=== PATIENT | male | born 1960 | race American Indian/Alaskan Native ===

== ENCOUNTER 2017-03-17 18:47 | Emergency (ER) | payer MEDICAID ==
--- NOTE | 2017-03-17 19:59 | EDM.PDOC ---
ED HPI GENERAL MEDICAL PROBLEM - General Chief Complaint: General Stated Complaint: POSSIBLE BLOOD CLOT IN ARM Time Seen by Provider: 03/17/17 19:11 Source of Information: Reports: Patient History Limitations: Reports: No Limitations - History of Present Illness INITIAL COMMENTS - FREE TEXT/NARRATIVE: 56 y.o.w.m s/p kidney transplant 15 years ago. He was seen last saturday in [facility]. An US of his left forarm was performed which was neg for DVT. Now, the patient was repairing his car and "bumbed" his left for arm. He noticed some pain and redness and thinks he has now a DVT in his left forearm. Pt denies any other acute medical issues. No F/C, No N/V. BP 175/85 pulse 85 Temp 36.4 Onset: Today Onset Date: 03/13/17 Onset Time: 06:00 Duration: Intermittent Location: Reports: Upper Extremity, Left Quality: Reports: Burning Severity: Mild Improves with: Reports: Rest Worsens with: Reports: Movement Left Lower Arm Pain Score (Numeric/FACES): 8 - Related Data Allergies Allergy/AdvReac Type Severity Reaction Status Date / Time No Known Allergies Allergy Verified 03/17/17 19:08 Home Meds: Home Meds Cholecalciferol (Vitamin D3) [Vitamin D3] 2,000 unit PO DAILY 06/07/15 [History] Fluconazole [Diflucan] 800 mg PO DAILY 06/07/15 [History] Tacrolimus 1 mg PO Q12H 06/07/15 [History] predniSONE [Prednisone] 10 mg PO DAILY 06/07/15 [History] Acetaminophen [Tylenol] 650 mg PO Q6H PRN 08/22/15 [History] Calcitriol [Rocaltrol] 0.75 mcg TID 08/22/15 [History] Sodium Chloride 1 gm PO BID 08/22/15 [History] Past Medical History HEENT History: Reports: Impaired Vision Other HEENT History: Pt wears glasses Cardiovascular History: Reports: High Cholesterol, Hypertension Other Cardiovascular History: Pt reports being taken off HTN medication while his is taking antibiotics for recent hospitalization for viral menigitis. Respiratory History: Reports: None Gastrointestinal History: Reports: Cholelithiasis Genitourinary History: Reports: Dialysis, Renal Disease, UTI, Recurrent, Other ( See Below) Other Genitourinary History: kidney transplant 17 years ago Musculoskeletal History: Reports: None Psychiatric History: Reports: Panic Attack Endocrine/Metabolic History: Reports: Diabetes, Type II, Hypoparathyroidism Hematologic History: Reports: Anemia, Blood Transfusion(s) Immunologic History: Reports: Solid Organ Transplant Other Immunologic History: kidney transplant 2002 - Infectious Disease History Infectious Disease History: Reports: Chicken Pox - Past Surgical History Head Surgeries/Procedures: Reports: None GI Surgical History: Reports: Appendectomy, Cholecystectomy Male Surgical History: Reports: Other (See Below) Other Male Surgeries/Procedures: kidney transplant 17 years ago Musculoskeletal Surgical History: Reports: Hip Replacement Social & Family History - Family History Family Medical History: Noncontributory Cardiac: Reports: Other (See Below) Other Cardiac Family History: Brother had bypass OBGYN: Reports: Endocrine/Metabolic: Reports: Diabetes, type II - Tobacco Use Smoking Status *Q: Never Smoker Years of Tobacco use: 15 Packs/Tins Daily: 1 Used Tobacco, but Quit: Yes Month Tobacco Last Used: 1992 Second Hand Smoke Exposure: No - Caffeine Use Caffeine Use: Reports: Coffee - Alcohol Use Days Per Week of Alcohol Use: 0 - Recreational Drug Use Recreational Drug Use: No ED ROS GENERAL - Review of Systems Review Of Systems: See Below Constitutional: Reports: No Symptoms HEENT: Reports: No Symptoms Respiratory: Reports: No Symptoms Cardiovascular: Reports: No Symptoms Endocrine: Reports: No Symptoms GI/Abdominal: Reports: No Symptoms : Reports: No Symptoms Musculoskeletal: Reports: No Symptoms Skin: Reports: No Symptoms Neurological: Reports: No Symptoms Psychiatric: Reports: No Symptoms Hematologic/Lymphatic: Reports: No Symptoms Immunologic: Reports: No Symptoms ED EXAM, GENERAL - Physical Exam Exam: See Below Exam Limited By: No Limitations General Appearance: Alert, WD/WN, Mild Distress Eye Exam: Bilateral Eye: Normal Inspection Ears: Normal External Exam Ear Exam: Bilateral Ear: Auricle Normal Nose: Normal Inspection, Normal Mucosa Throat/Mouth: Normal Inspection Head: Atraumatic, Normocephalic Neck: Normal Inspection, Supple, Non-Tender Respiratory/Chest: No Respiratory Distress, Lungs Clear Cardiovascular: Normal Peripheral Pulses, Regular Rate, Rhythm Peripheral Pulses: 1+: Brachial (L), Brachial (R) GI/Abdominal: Normal Bowel Sounds, Soft, Non-Tender (Male) Exam: Deferred Rectal (Males) Exam: Deferred Back Exam: Normal Inspection Extremities: Other (left forearm discomfort, left forearm has a nonfuctioning AV shunt, not used for 15 years) Neurological: Alert, Oriented, CN II-XII Intact, Normal Cognition, Normal Gait, No Motor/Sensory Deficits Psychiatric: Normal Affect, Normal Mood Skin Exam: Warm, Dry, Rash (left forearm) Course - Vital Signs Text/Narrative:: 56 y.o.w.m s/p kidney transplant 15 years ago. He was seen last saturday in [facility]. An US of his left forarm was performed which was neg for DVT. Now, the patient was repairing his car and "bumbed" his left for arm. He noticed some pain and redness and thinks he has now a DVT in his left forearm. Pt denies any other acute medical issues. No F/C, No N/V. BP 175/85 pulse 85 Temp 36.4 PE: Discomfort, swelling left forearm. S/P Kidney transplant left forarm av shunt with swelling and tenderness Imaging: Sonogram of an AV shunt is not done in this facility Labs: Pt refused all kind of lab works Impressin: Left forearm pain, redness and swelling Tx: Pt refused blood work and painmeds Plan: D/C to home Last Recorded V/S: Last Vital Signs Temp 36.4 C 03/17/17 19:11 Pulse 87 03/17/17 20:12 Resp 18 03/17/17 19:11 BP 160/87 H 03/17/17 20:12 Pulse Ox 100 03/17/17 19:11 - Orders/Labs/Meds Orders: Active Orders 24 hr Category Date Time Status VL Duplex Upr Ext Art Ltd Lt [US] Stat Exams 03/17/17 19:43 Taken BASIC METABOLIC PANEL,BMP [CHEM] Stat Lab 03/17/17 19:47 Ordered CBC WITH AUTO DIFF [HEME] Stat Lab 03/17/17 19:47 Ordered CULTURE BLOOD [BC] Urgent Lab 03/17/17 19:48 Ordered CULTURE BLOOD [BC] Urgent Lab 03/17/17 19:48 Ordered LACTIC ACID [CHEM] Stat Lab 03/17/17 19:47 Ordered Blood Culture x2 Reflex Set [OM.PC] Urgent Oth 03/17/17 19:47 Ordered Departure - Departure Time of Disposition: 19:59 Disposition: Home, Self-Care 01 Condition: Good Clinical Impression: Left forearm pain - Discharge Information Referrals: Du Andersen MD [Primary Care Provider] - Forms: ED Department Discharge Additional Instructions: You refused blood work and wanted to see your doctor tomorrow. Doppler sonography of a shunt can not be done today. Please f/u with your doctor, come back to the ED if your symptoms get worse acutely - My Orders Last 24 Hours: My Active Orders 03/17/17 19:43 VL Duplex Upr Ext Art Ltd Lt [US] Stat 03/17/17 19:47 BASIC METABOLIC PANEL,BMP [CHEM] Stat CBC WITH AUTO DIFF [HEME] Stat LACTIC ACID [CHEM] Stat Blood Culture x2 Reflex Set [OM.PC] Urgent 03/17/17 19:48 CULTURE BLOOD [BC] Urgent CULTURE BLOOD [BC] Urgent - Assessment/Plan Last 24 Hours: My Active Orders 03/17/17 19:43 VL Duplex Upr Ext Art Ltd Lt [US] Stat 03/17/17 19:47 BASIC METABOLIC PANEL,BMP [CHEM] Stat CBC WITH AUTO DIFF [HEME] Stat LACTIC ACID [CHEM] Stat Blood Culture x2 Reflex Set [OM.PC] Urgent 03/17/17 19:48 CULTURE BLOOD [BC] Urgent CULTURE BLOOD [BC] Urgent
[2017-03-17 20:13] VITALS: BP 160/87
== END 2017-03-17 20:06 | disposition home or self-care (01) ==
LOC: FB.ED 18:47
DX: M79.632 Pain in left forearm (principal); R22.32 Localized swelling, mass and lump, left upper limb; Z79.899 Other long term (current) drug therapy; I10 Essential (primary) hypertension; E11.9 Type 2 diabetes mellitus without complications
CPT/HCPCS: 93931-LT; 99283

== ENCOUNTER 2017-07-23 16:43 | Inpatient (IN) | payer MEDICAID ==
--- NOTE | 2017-07-23 16:57 | EDM.PDOC ---
ED HPI GENERAL MEDICAL PROBLEM - General Chief Complaint: Gastrointestinal Problem Stated Complaint: diarrhea Time Seen by Provider: 07/23/17 16:50 Source of Information: Reports: Patient History Limitations: Reports: No Limitations - History of Present Illness INITIAL COMMENTS - FREE TEXT/NARRATIVE: Mr Barrera comes into [facility] ED at request of PCP for assessment of diarrhea over the past 7 days. There is small loose watery stools that are intermittent, and occur usually following a meal. There has been no BRB or mucous detected, limited midline midabdominal pains with crampy features, nonradiating. There has been no exposure, fever, chills, or sweats. He is on immunosuppression for a L renal transplant in 2001, and has chronic anemia. - Related Data Allergies Allergy/AdvReac Type Severity Reaction Status Date / Time No Known Allergies Allergy Verified 07/23/17 16:51 Home Meds: Home Meds Cholecalciferol (Vitamin D3) [Vitamin D3] 2,000 unit PO DAILY 06/07/15 [History] Fluconazole [Diflucan] 800 mg PO DAILY 06/07/15 [History] Tacrolimus 1 mg PO Q12H 06/07/15 [History] Acetaminophen [Tylenol] 650 mg PO Q6H PRN 08/22/15 [History] Calcitriol [Rocaltrol] 0.75 mcg PO TID 08/22/15 [History] Sodium Chloride 1 gm PO BID 08/22/15 [History] Omeprazole [Omeprazole] 20 mg PO DAILY 07/23/17 [History] Warfarin Sodium [Warfarin Sodium] 3 mg PO ASDIRECTED 07/23/17 [History] Past Medical History HEENT History: Reports: Impaired Vision Other HEENT History: Pt wears glasses Cardiovascular History: Reports: High Cholesterol, Hypertension Other Cardiovascular History: Pt reports being taken off HTN medication while his is taking antibiotics for recent hospitalization for viral menigitis. Respiratory History: Reports: None Gastrointestinal History: Reports: Cholelithiasis Genitourinary History: Reports: Dialysis, Renal Disease, UTI, Recurrent, Other ( See Below) Other Genitourinary History: kidney transplant 17 years ago pts fistula was removed early may 2017 from left arm Musculoskeletal History: Reports: None Psychiatric History: Reports: Panic Attack Endocrine/Metabolic History: Reports: Diabetes, Type II, Hypoparathyroidism Hematologic History: Reports: Anemia, Blood Transfusion(s) Immunologic History: Reports: Solid Organ Transplant Other Immunologic History: kidney transplant 2002 - Infectious Disease History Infectious Disease History: Reports: Chicken Pox - Past Surgical History Head Surgeries/Procedures: Reports: None GI Surgical History: Reports: Appendectomy, Cholecystectomy Male Surgical History: Reports: Other (See Below) Other Male Surgeries/Procedures: kidney transplant 17 years ago Endocrine Surgical History: Reports: None Musculoskeletal Surgical History: Reports: Hip Replacement Social & Family History - Family History Family Medical History: Noncontributory Cardiac: Reports: Other (See Below) Other Cardiac Family History: Brother had bypass OBGYN: Reports: Endocrine/Metabolic: Reports: Diabetes, type II - Tobacco Use Smoking Status *Q: Never Smoker Years of Tobacco use: 15 Packs/Tins Daily: 1 Used Tobacco, but Quit: Yes Month/Year Tobacco Last Used: 1992 Second Hand Smoke Exposure: No - Caffeine Use Caffeine Use: Reports: Coffee, Soda - Alcohol Use Days Per Week of Alcohol Use: 0 - Recreational Drug Use Recreational Drug Use: No ED ROS GENERAL - Review of Systems Review Of Systems: See Below Constitutional: Reports: Malaise HEENT: Reports: No Symptoms Respiratory: Reports: No Symptoms Cardiovascular: Reports: No Symptoms Endocrine: Reports: No Symptoms GI/Abdominal: Reports: Abdominal Pain, Diarrhea : Reports: No Symptoms Musculoskeletal: Reports: No Symptoms Skin: Reports: No Symptoms Neurological: Reports: No Symptoms Psychiatric: Reports: No Symptoms Hematologic/Lymphatic: Reports: Anemia Immunologic: Reports: No Symptoms ED EXAM, GI/ABD - Physical Exam Exam: See Below Exam Limited By: No Limitations General Appearance: Alert, WD/WN, No Apparent Distress Eyes: Bilateral: Normal Appearance, EOMI Ears: Normal External Exam Nose: Normal Inspection Throat/Mouth: Normal Inspection, Normal Oropharynx Head: Normocephalic Neck: Normal Inspection, Supple, Non-Tender Respiratory/Chest: Lungs Clear, Normal Breath Sounds Cardiovascular: Regular Rate, Rhythm, No Edema, No Murmur GI/Abdominal Exam: Normal Bowel Sounds, Soft, Non-Tender, No Mass, Other (mild distention, scars present from prior renal transplant(s); no focal tenderness) (Male) Exam: No Hernia Back Exam: Normal Inspection Extremities: Normal Inspection, Normal Range of Motion, Non-Tender Neurological: Alert, Oriented, CN II-XII Intact, Normal Cognition, Normal Gait, No Motor/Sensory Deficits Psychiatric: Normal Affect, Normal Mood Skin Exam: Warm, Dry, Intact, Normal Color, No Rash Lymphatic: No Adenopathy Course - Vital Signs Text/Narrative:: CT Abd-Pelvis w oral contrast notes inflammation and perivascular stranding in the ascending colon near hepatic flexure consistent with acute diverticulitis. Case was discussed with Dr Andersen and patient, and he will be admitted to In. Last Recorded V/S: Last Vital Signs Temp 36.7 C 07/23/17 16:52 Pulse 89 07/23/17 16:52 Resp 18 07/23/17 16:52 BP 127/75 07/23/17 16:52 Pulse Ox 99 07/23/17 16:52 - Orders/Labs/Meds Orders: Active Orders 24 hr Category Date Time Status Abdomen Pelvis wo Cont [CT] Stat Exams 07/23/17 16:57 Taken Meds: Medications Discontinued Medications Generic Name Dose Route Start Last Admin Trade Name Freq PRN Reason Stop Dose Admin Diatrizoate Meglum/Diatrizoate Sod 30 ml 07/23/17 18:30 07/23/17 18:59 Gastrografin 37% PO 07/23/17 18:31 30 ml . DIRECTED ONE Administration Departure - Departure Time of Disposition: 19:48 Disposition: Admitted As Inpatient 66 Condition: Fair Clinical Impression: Diverticulitis - Discharge Information Referrals: Du Andersen MD [Primary Care Provider] - Forms: ED Department Discharge - Problem List & Annotations (1) Diverticulitis SNOMED Code(s): 855154012 Code(s): K57.92 - DVTRCLI OF INTEST, PART UNSP, W/O PERF OR ABSCESS W/O BLEED Status: Acute Current Visit: Yes Annotation/Comment:: Admit to [facility] for medical treatment. - Problem List Review Problem List Initiated/Reviewed/Updated: Yes - My Orders Last 24 Hours: My Active Orders 07/23/17 16:57 Abdomen Pelvis wo Cont [CT] Stat - Assessment/Plan Last 24 Hours: My Active Orders 07/23/17 16:57 Abdomen Pelvis wo Cont [CT] Stat Plan: Admit to Med Surg.
[2017-07-23] MEDS ORDERED: Diatrizoate Meglumine/Diatrizoate Sodium 37% 30 ML Bottle PO ONE (18:30)
[2017-07-23] MEDS ORDERED: metroNIDAZOLE/Normal Saline 500 MG in Premix Bag 1 BAG IV SCH (22:00)
[2017-07-23] MEDS ORDERED: Warfarin 3 MG Tab PO SCH (22:00)
[2017-07-23] MEDS ORDERED: TACROLIMUS 0.5 MG PO SCH (22:00)
[2017-07-23] MEDS ORDERED: Tacrolimus 0.5 MG Cap PO SCH (22:15)
[2017-07-23] MEDS: Tacrolimus 1 MG Cap PO SCH (22:24)
[2017-07-23] MEDS ORDERED: metroNIDAZOLE/Normal Saline 100 ML ONE (22:59)
[2017-07-23] MEDS: Ciprofloxacin in D5W 400 MG in Premix Bag 1 BAG IV SCH ×2 (23:00)
[2017-07-23] MEDS: Sodium Bicarbonate 650 MG Tab PO SCH (23:18)
[2017-07-23] MEDS: Calcitriol 0.25 MCG Cap PO SCH (23:18)
[2017-07-23] MEDS ORDERED: MAGNESIUM OXIDE 500 MG PO SCH (23:30)
[2017-07-24] MEDS ORDERED: metroNIDAZOLE/Normal Saline 500 MG in Premix Bag 1 BAG IV SCH (08:00)
[2017-07-24] MEDS: Pantoprazole 40 MG Tab.CR PO SCH (08:39)
[2017-07-24] MEDS: predniSONE 10 MG Tab PO SCH (08:39)
[2017-07-24] MEDS: Magnesium Oxide 400 MG Tab PO SCH ×3 (08:40→21:28)
[2017-07-24] MEDS: Calcitriol 0.25 MCG Cap PO SCH ×3 (08:40→21:29)
[2017-07-24] MEDS: Sodium Bicarbonate 650 MG Tab PO SCH ×2 (08:41→21:29)
[2017-07-24] MEDS: Cholecalciferol (Vitamin D3) 1,000 Unit Tab PO SCH (08:41)
--- NOTE | 2017-07-24 08:44 | PCM.HP ---
H&P History of Present Illness - General Date of Service: 07/24/17 Admit Problem/Dx: Admission Diagnosis/Problem Admission Diagnosis/Problem Acute diverticulitis of intestine Source of Information: Patient, Old Records History Limitations: Reports: No Limitations - History of Present Illness Initial Comments - Free Text/Narative: Hollis is a 56-year-old male who came in last night because of a diarrhea. That's lasted 7 days, loose watery stools several times a day with no blood. Associated nonspecific abdominal pain, nothing seems to help. In addition Hollis complains of generalized weakness, body aches and lethargy. He has a history of anemia from myelodysplastic syndrome, previously well-controlled on transfusion every so often. He also has a history of immunosuppression because of kidney transplant status. As a result,he has had cryptococcal meningitis. Is on Diflucan for prophylaxis. He has a history of type 2 diabetes that is well controlled. Generalized Pain Score (Numeric/FACES): 1 - Related Data Allergies/Adverse Reactions: Allergies Allergy/AdvReac Type Severity Reaction Status Date / Time No Known Allergies Allergy Verified 07/23/17 16:51 Home Medications: Home Meds Cholecalciferol (Vitamin D3) [Vitamin D3] 2,000 unit PO DAILY 06/07/15 [History] Fluconazole [Diflucan] 200 mg PO DAILY 06/07/15 [History] Calcitriol [Rocaltrol] 0.5 mcg PO TID 08/22/15 [History] Magnesium Oxide [Magnesium] 500 mg PO TID 07/23/17 [History] Omeprazole [Omeprazole] 20 mg PO DAILY 07/23/17 [History] Phytonadione [Vitamin K] 100 mcg PO 1400 07/23/17 [History] Sodium Bicarbonate 650 mg PO BID 07/23/17 [History] Tacrolimus 1 mg PO Q12H 07/23/17 [History] Warfarin Sodium [Warfarin Sodium] 1.5 mg PO ASDIRECTED 07/23/17 [History] predniSONE [Prednisone] 10 mg PO DAILY 07/23/17 [History] Past Medical History HEENT History: Reports: Impaired Vision Other HEENT History: Pt wears glasses Cardiovascular History: Reports: High Cholesterol, Hypertension Other Cardiovascular History: Pt reports being taken off HTN medication while his is taking antibiotics for recent hospitalization for viral menigitis.(05/13/15 ) Respiratory History: Reports: None Gastrointestinal History: Reports: Cholelithiasis, Diverticulosis, GERD Genitourinary History: Reports: Dialysis, Renal Disease, UTI, Recurrent, Other ( See Below) Other Genitourinary History: kidney transplant 17 years ago (2001) pts fistula was removed early may 2017 from left arm Musculoskeletal History: Reports: None Psychiatric History: Reports: Anxiety, Other (See Below) Other Psychiatric History: gets mildly depressed Endocrine/Metabolic History: Reports: Diabetes, Type II, Hypoparathyroidism Hematologic History: Reports: Anemia, Blood Transfusion(s) Immunologic History: Reports: Solid Organ Transplant Other Immunologic History: kidney transplant 2001 - Infectious Disease History Infectious Disease History: Reports: Chicken Pox - Past Surgical History Head Surgeries/Procedures: Reports: None Cardiovascular Surgical History: Reports: None GI Surgical History: Reports: Appendectomy, Cholecystectomy Male Surgical History: Reports: Other (See Below) Other Male Surgeries/Procedures: kidney transplant 17 years ago Musculoskeletal Surgical History: Reports: Hip Replacement Other Musculoskeletal Surgeries/Procedures:: both hips-replaced Social & Family History - Family History Family Medical History: Noncontributory Cardiac: Reports: Other (See Below) Other Cardiac Family History: Brother had bypass OBGYN: Reports: Endocrine/Metabolic: Reports: Diabetes, type II - Tobacco Use Smoking Status *Q: Former Smoker Years of Tobacco use: 15 Packs/Tins Daily: 0 Used Tobacco, but Quit: Yes Month/Year Tobacco Last Used: unknown Second Hand Smoke Exposure: No - Caffeine Use Caffeine Use: Reports: Coffee Other Caffeine Use: 2-3 cups per day - Alcohol Use Days Per Week of Alcohol Use: 0 - Recreational Drug Use Recreational Drug Use: Yes Drug Use in Last 12 Months: No Recreational Drug Use Frequency: Not Used In Over 6 Months H&P Review of Systems - Review of Systems: Review Of Systems: ROS reveals no pertinent complaints other than HPI. Exam - Exam Exam: See Below - Vital Signs Vital Signs: Last Vital Signs Temp 97.9 F 07/24/17 08:00 Pulse 77 07/24/17 00:27 Resp 18 07/24/17 08:00 BP 107/50 L 07/24/17 08:00 Pulse Ox 98 07/24/17 08:00 Weight: 74.956 kg - Exam General: Alert, Oriented, 4 HEENT: PERRLA, Hearing Intact, Mucosa Moist & [place], Nares Patent, Normal Nasal Septum, Posterior Pharynx Clear, Conjunctiva Clear, EOMI, EACs Clear, TMs Clear Neck: Supple, Trachea Midline, 2 Lungs: Clear to Auscultation, Normal Respiratory Effort Cardiovascular: Regular Rate, Regular Rhythm GI/Abdominal Exam: Guarding, Rebound, Tender, Hepatomegaly. No: Abnormal Bowel Sounds, Mass (Male) Exam: Deferred Rectal (Males) Exam: Normal Exam, Normal Rectal Tone, Prostate Normal Back Exam: Normal Inspection, Full Range of Motion, NT Extremities: Normal Inspection, Normal Range of Motion, Non-Tender, No Pedal Edema, Normal Capillary Refill Skin: Warm, Dry, Intact Neurological: Cranial Nerves Intact, Reflexes Equal Bilateral Neuro Extensive - Mental Status: Alert, Oriented x3, Normal Mood/Affect, Normal Cognition Neuro Extensive - Motor, Sensory, Reflexes: CN II-XII Intact, Normal Gait, Normal Reflexes Psychiatric: Alert, Normal Affect, Normal Mood - Patient Data Result Diagrams: 07/24/17 08:20 *Q Meaningful Use (ADM) - VTE *Q VTE Criteria *Q: VTE Mechanical Contraindications *Q: At Risk for Falls - Stroke *Q Stroke Criteria *Q: - AMI *Q AMI Criteria *Q: - Problem List (1) Diverticulitis SNOMED Code(s): 906680300 ICD Code: K57.92 - DVTRCLI OF INTEST, PART UNSP, W/O PERF OR ABSCESS W/O BLEED Status: Acute Current Visit: Yes Problem Details: Admit to [facility] for medical treatment. (2) Status post kidney transplant Status: Acute Current Visit: Yes (3) Diabetes type 2, controlled SNOMED Code(s): 68670553 ICD Code: E11.9 - TYPE 2 DIABETES MELLITUS WITHOUT COMPLICATIONS Status: Acute Current Visit: Yes Qualifiers: Diabetes mellitus complication status: with kidney complications Diabetes mellitus c software engineer insulin use: without c software engineer use Chronic kidney disease stage: stage 2 (mild) (4) Mesenteric artery thrombosis SNOMED Code(s): 794809525 ICD Code: K55.069 - ACUTE INFARCTION OF INTESTINE, PART AND EXTENT UNSPECIFIED Status: Chronic Current Visit: Yes (5) CKD (chronic kidney disease) SNOMED Code(s): 324799021 ICD Code: N18.9 - CHRONIC KIDNEY DISEASE, UNSPECIFIED Status: Chronic Current Visit: Yes Qualifiers: Chronic kidney disease stage: stage 2 (mild) Qualified Code(s): N18.2 - Chronic kidney disease, stage 2 (mild) (6) HTN (hypertension) SNOMED Code(s): 39654648 ICD Code: I10 - ESSENTIAL (PRIMARY) HYPERTENSION Status: Chronic Current Visit: Yes Qualifiers: Hypertension type: essential hypertension Qualified Code(s): I10 - Essential (primary) hypertension (7) Anemia, macrocytic SNOMED Code(s): 14019744 ICD Code: D53.9 - NUTRITIONAL ANEMIA, UNSPECIFIED Status: Acute Current Visit: No (8) History of cryptococcal meningitis SNOMED Code(s): 856712587 ICD Code: Z86.61 - PERSONAL HISTORY OF INFECTIONS OF THE CENTRAL NERVOUS SYSTEM Status: Acute Current Visit: No (9) MDS (myelodysplastic syndrome) with 5q deletion SNOMED Code(s): 209547140 ICD Code: D46.C - MYELODYSPLASTIC SYNDROME W ISOLATED DEL(5Q) CHROMSOML ABNLT Status: Acute Current Visit: Yes (10) Immunosuppressed status SNOMED Code(s): 02405347 ICD Code: D89.9 - DISORDER INVOLVING THE IMMUNE MECHANISM, UNSPECIFIED Status: Acute Current Visit: Yes Problem List Initiated/Reviewed/Updated: Yes Orders Last 24hrs: Active Orders 24 hr Category Date Time Status Activity as Tolerated [RC] .Routine Care 07/24/17 00:53 Active Intake and Output [RC] 06,14,22 Care 07/23/17 22:00 Active Vital Signs [RC] 00,04,08,12,16,20 Care 07/23/17 22:00 Active NPO [Nothing Per Oral Diet] [DIET] Diet 07/23/17 Breakfast Active AMYLASE [CHEM] Routine Lab 07/24/17 08:20 Received CBC WITH AUTO DIFF [HEME] Stat Lab 07/24/17 08:20 Received COMPREHENSIVE METABOLIC PN,CMP [CHEM] Stat Lab 07/24/17 08:20 Received INR,PT,PROTHROMBIN TIME [COAG] Routine Lab 07/24/17 08:20 Received RED BLOOD CELLS LP [BBK] Routine Lab 07/24/17 08:20 Received TYPE AND SCREEN [BBK] Routine Lab 07/24/17 08:20 Received Calcitriol [Rocaltrol] Med 07/23/17 22:45 Active 0.5 mcg PO TID Cholecalciferol (Vitamin D3) [Vitamin D3] Med 07/24/17 09:00 Active 2,000 units PO DAILY Ciprofloxacin in D5W [Cipro in D5W 400 MG/200 ML] 400 Med 07/23/17 22:00 Active mg Premix Bag 1 bag IV Q12H Dextrose 5%-0.45% NaCl [Dextrose 5%-1/2 NS] 2,000 ml Med 07/23/17 22:00 Active IV ASDIRECTED Fluconazole [Diflucan] Med 07/24/17 09:00 Active 800 mg PO DAILY Magnesium Oxide Med 07/24/17 09:00 Active 400 mg PO TID Pantoprazole [ProTONIX] Med 07/24/17 07:30 Active 40 mg PO ACBREAKFAST Sodium Bicarbonate Med 07/23/17 22:30 Active 650 mg PO BID Sodium Chloride 0.9% [Saline Flush] Med 07/23/17 21:45 Active 10 ml FLUSH ASDIRECTED PRN Tacrolimus [Prograf] Med 07/23/17 22:30 Active 1 mg PO Q12H Warfarin [Coumadin] Med 07/23/17 22:00 Pending 1.5 mg PO ASDIRECTED metroNIDAZOLE/Normal Saline [Flagyl 500 MG in NS 100 ML Med 07/24/17 08:00 Active ] 500 mg Premix Bag 1 bag IV Q8H predniSONE Med 07/24/17 08:00 Active 10 mg PO WITHBREAKFAST Peripheral IV Insertion Adult [OM.PC] Routine Oth 07/23/17 21:45 Ordered VTE Mechanical Contraindications [AST] Click to Edit Oth 07/23/17 22:00 Ordered Medication Orders Calcitriol (Rocaltrol) 0.5 mcg PO TID [facility] Last Admin: 07/23/17 23:18 Dose: 0.5 mcg Cholecalciferol (Vitamin D3) 2,000 units PO DAILY [facility] [place] Fluconazole (Diflucan) 800 mg PO DAILY [facility] [place] Ciprofloxacin/Dextrose 400 mg/ (Premix) 200 mls @ 200 mls/hr IV Q12H [facility] [place] Last Admin: 07/23/17 23:00 Dose: 200 mls/hr Dextrose/Sodium Chloride (Dextrose 5%-1/2 Ns) 2,000 mls @ 250 mls/hr IV ASDIRECTED [facility] [place] Last Admin: 07/24/17 04:58 Dose: 250 mls/hr Infusion: 07/24/17 04:58 Dose: 250 mls/hr Admin: 07/23/17 22:55 Dose: 250 mls/hr Metronidazole 500 mg/ Premix 100 mls @ 100 mls/hr IV Q8H [facility] [place] Last Admin: 07/24/17 08:33 Dose: 100 mls/hr Magnesium Oxide (Magnesium Oxide) 400 mg PO TID [facility] [place] Pantoprazole Sodium (Protonix) 40 mg PO ACBREAKFAST [facility] [place] Prednisone (Prednisone) 10 mg PO WITHBREAKFAST [facility] [place] Sodium Bicarbonate (Sodium Bicarbonate) 650 mg PO BID [facility] [place] Last Admin: 07/23/17 23:18 Dose: 650 mg Sodium Chloride (Saline Flush) 10 ml FLUSH ASDIRECTED PRN PRN Reason: Keep Vein Open Tacrolimus (Prograf) 1 mg PO Q12H [facility] [place] Last Admin: 07/23/17 22:24 Dose: 1 mg Warfarin Sodium (Coumadin) 1.5 mg PO ASDIRECTED [facility] Assessment/Plan Comment:: The CT reportedly showed diverticulitis on the right side. I agree with treatment with IV Flagyl and Cipro. I will advance his diet this morning. I will also given 2 units of PRBCs because of his anemia. Discontinue IV fluids. Possibly discharge tomorrow, if better on oral antibiotics.
--- NOTE | 2017-07-24 08:57 | CT ---
INDICATION: Possible diverticulitis. Abdominal pain and loose stools x1 week. History of two kidney transplants, no IV contrast. CT ABDOMEN AND PELVIS WITHOUT IV CONTRAST: Spiral 1.25-mm axial sections were obtained through the abdomen and pelvis with oral contrast only with sagittal and coronal reconstructions, 07/23/2017. No comparison CT was available. Total Exam DLP = 1014.86 mGy-cm. The lower lung bar and pleural spaces visualized appeared essentially normal. The heart appears to be at the upper limits of normal in size with the possibility of coronary artery calcifications. No pericardial effusion was seen. Metallic density in the stomach may be on a post-surgical basis, but should be correlated clinically. It may be medication. The gallbladder is absent, with clips at the gallbladder bed and cystic duct, compatible with cholecystectomy. The common bile duct was not enlarged. The pancreas appears normal. A low-density lesion in the lower pole of the right lobe of the liver medially, seen on axial image #112, measured approximately 13 mm and may represent a hemangioma or possibly a cyst. Other etiology cannot be excluded - cyst is felt to be most likely. The adrenal glands, spleen, and pancreas were unremarkable. The lummi kidneys are markedly atrophic. Transplanted kidney is noted in the pelvis, which has a relatively normal appearance without evidence of obstructive uropathy identified. Calcifications are noted in the abdominal aorta, celiac axis, iliac, and femoral arteries. The appendix is not definitely visualized. In the ascending colon, just prior to the hepatic flexure, there is an area of wall thickening and pericolonic fat stranding. Etiology is indeterminate. The possibility of neoplasia or colitis with limited peritonitis would be considerations. Neoplasia with localized metastasis could also be present. Colonoscopy may be warranted for further evaluation. This area is visualized on axial images #133 through #160 and coronal images #50 through #58. No other mass lesions, organomegaly, or free fluid collections were suggested. No evidence of free air or obstruction was seen. Sigmoid diverticulosis is noted without evidence of diverticulitis. Urinary bladder showed slight thickening of the wall, which could be on the basis of cystitis, but should be correlated clinically. Bilateral THAs produce hard beam artifact, limiting detail in the lower pelvis. The prostate did not appear grossly enlarged, but did appear to be calcified. Stool and air is noted in the rectum. IMPRESSION: 1. Abnormality in the ascending colon near the hepatic flexure. Fat stranding and pericolonic fat is noted at the site of wall thickening. Etiology is indeterminate, but cannot exclude neoplasia or localized inflammatory process such as colitis or diverticulitis. Close follow-up recommended. 2. Probable cyst in the right lobe of the liver. 3. Transplanted kidney in the left pelvis appears satisfactory with severely atrophic lummi kidneys. 4. ASD. 5. ASHD. 6. Slight thickening of the wall of the urinary bladder of questionable significance. It could represent cystitis. 7. Sigmoid diverticulosis without definite evidence of diverticulitis. 8. Bilateral total hip arthroplasties which limit detail in the lowermost pelvis due to hard beam artifact. Report was called to Dr. Carbajal at 1932 hours, 07/23/2017. [facility]
[2017-07-24] MEDS ORDERED: Non-Formulary Medication 1 Each (Omeprazole [Omeprazole] 20 MG) PO SCH (09:00)
[2017-07-24] MEDS ORDERED: Calcitriol 0.25 MCG Cap PO SCH (09:00)
[2017-07-24] MEDS ORDERED: Fluconazole 100 MG Tab PO SCH (09:00)
[2017-07-24] MEDS ORDERED: Sodium Chloride 0.9% 250 ML IV SCH (09:30)
[2017-07-24] MEDS: Fluconazole 100 MG Tab PO SCH (10:05)
[2017-07-24] MEDS: Tacrolimus 1 MG Cap PO SCH ×2 (10:05→22:35)
[2017-07-24] MEDS: Ciprofloxacin in D5W 400 MG in Premix Bag 1 BAG IV SCH ×4 (10:06→21:30)
[2017-07-24] MEDS ORDERED: Warfarin 3 MG Tab PO SCH (16:00)
[2017-07-24] MEDS: metroNIDAZOLE/Normal Saline 500 MG in Premix Bag 1 BAG IV SCH (18:51)
[2017-07-24] MEDS: Sodium Chloride 0.9% 10 ML Syringe FLUSH PRN ×2 (19:49→22:35)
[2017-07-25] MEDS: metroNIDAZOLE/Normal Saline 500 MG in Premix Bag 1 BAG IV SCH ×2 (01:50→11:24)
[2017-07-25] MEDS: Sodium Chloride 0.9% 10 ML Syringe FLUSH PRN (02:50)
[2017-07-25] MEDS: Pantoprazole 40 MG Tab.CR PO SCH (07:36)
[2017-07-25] MEDS: predniSONE 10 MG Tab PO SCH (08:34)
[2017-07-25] MEDS: Calcitriol 0.25 MCG Cap PO SCH ×2 (08:34→14:17)
[2017-07-25] MEDS: Cholecalciferol (Vitamin D3) 1,000 Unit Tab PO SCH (08:34)
[2017-07-25] MEDS: Fluconazole 100 MG Tab PO SCH (08:34)
[2017-07-25] MEDS: Sodium Bicarbonate 650 MG Tab PO SCH (08:34)
[2017-07-25] MEDS: Magnesium Oxide 400 MG Tab PO SCH ×2 (08:34→14:17)
--- NOTE | 2017-07-25 08:48 | PCM.PN ---
- General Info Date of Service: 07/25/17 Subjective Update: Hollis complaints of diarrhea- lose,watery stools. The abdominal pain is improved he's been able to tolerate liquid diet. - Review of Systems General: Reports: No Symptoms Cardiovascular: Reports: No Symptoms Genitourinary: Reports: No Symptoms Musculoskeletal: Reports: No Symptoms - Patient Data Vitals - Most Recent: Last Vital Signs Temp 98.1 F 07/25/17 08:00 Pulse 64 07/25/17 08:00 Resp 17 07/25/17 08:00 BP 143/88 H 07/25/17 08:00 Pulse Ox 97 07/25/17 08:00 Weight - Most Recent: 74.956 kg I&O - Last 24 Hours: Intake & Output 07/24/17 07/25/17 07/25/17 22:59 06:59 14:59 Intake Total 644 200 Output Total 1400 Balance -756 200 Lab Results Last 24 Hours: Laboratory Results - last 24 hr 07/24/17 07/24/17 07/24/17 Range/Units 08:20 08:20 08:20 WBC (4.5-12.0) X10-3/uL RBC (4.30-5.75) x10(6)uL Hgb (11.5-15.5) g/dL Hct (30.0-51.3) % MCV (80-96) fL MCH (27.7-33.6) pg MCHC (32.2-35.4) g/dL RDW (11.5-15.5) % Plt Count (125-369) X10(3)uL MPV (7.4-10.4) fL Neut % (Auto) (46-82) % Lymph % (Auto) (13-37) % Knott % (Auto) (4-12) % Eos % (Auto) (1.0-5.0) % Baso % (Auto) (0-2) % Neut # (Auto) (1.6-8.3) # Lymph # (Auto) (0.6-5.0) # Knott # (Auto) (0.0-1.3) # Eos # (Auto) (0.0-0.8) # Baso # (Auto) (0.0-0.2) # Sodium 140 (135-145) mmol/L Potassium 3.8 (3.5-5.3) mmol/L Chloride 103 (100-110) mmol/L Carbon Dioxide 28 (21-32) mmol/L BUN 21 H (7-18) mg/dL Creatinine 1.5 H (0.70-1.30) mg/dL Est Cr Clr Drug Dosing 49.03 mL/min Estimated GFR (MDRD) 48 L (>60) BUN/Creatinine Ratio 14.0 (9-20) Glucose 193 H (80-116) mg/dL Hemoglobin A1c (4.5-6.2) % Calcium 7.7 L (8.6-10.2) mg/dL Total Bilirubin 0.3 (0.1-1.3) mg/dL AST 46 H (5-25) IU/L ALT 160 H* (12-36) U/L Alkaline Phosphatase 126 H (56-112) IU/L Total Protein 5.9 L (6.0-8.0) g/dL Albumin 2.4 L (3.5-5.2) g/dL Globulin 3.5 g/dL Albumin/Globulin Ratio 0.7 Amylase 22 L (25-115) U/L Blood Type O POSITIVE Gel Antibody Screen Negative Crossmatch See Detail 07/25/17 07/25/17 07/25/17 Range/Units 06:12 06:12 06:12 WBC 3.9 L (4.5-12.0) X10-3/uL RBC 2.65 L (4.30-5.75) x10(6)uL Hgb 8.2 L (11.5-15.5) g/dL Hct 24.1 L (30.0-51.3) % MCV 90.9 (80-96) fL MCH 30.8 (27.7-33.6) pg MCHC 33.8 (32.2-35.4) g/dL RDW 14.1 (11.5-15.5) % Plt Count 323 (125-369) X10(3)uL MPV 9.0 (7.4-10.4) fL Neut % (Auto) 63.5 (46-82) % Lymph % (Auto) 23.8 (13-37) % Knott % (Auto) 7.8 (4-12) % Eos % (Auto) 4 (1.0-5.0) % Baso % (Auto) 1 (0-2) % Neut # (Auto) 2.5 (1.6-8.3) # Lymph # (Auto) 0.9 (0.6-5.0) # Knott # (Auto) 0.3 (0.0-1.3) # Eos # (Auto) 0.2 (0.0-0.8) # Baso # (Auto) 0.0 (0.0-0.2) # Sodium 144 (135-145) mmol/L Potassium 3.9 (3.5-5.3) mmol/L Chloride 106 (100-110) mmol/L Carbon Dioxide 29 (21-32) mmol/L BUN 20 H (7-18) mg/dL Creatinine 1.5 H (0.70-1.30) mg/dL Est Cr Clr Drug Dosing 49.03 mL/min Estimated GFR (MDRD) 48 L (>60) BUN/Creatinine Ratio 13.3 (9-20) Glucose 127 H (80-116) mg/dL Hemoglobin A1c 8.5 H (4.5-6.2) % Calcium 7.9 L (8.6-10.2) mg/dL Total Bilirubin (0.1-1.3) mg/dL AST (5-25) IU/L ALT (12-36) U/L Alkaline Phosphatase (56-112) IU/L Total Protein (6.0-8.0) g/dL Albumin (3.5-5.2) g/dL Globulin g/dL Albumin/Globulin Ratio Amylase (25-115) U/L Blood Type Gel Antibody Screen Crossmatch Med Orders - Current: Current Medications Calcitriol (Rocaltrol) 0.5 mcg PO TID [facility] Last Admin: 07/25/17 08:34 Dose: 0.5 mcg Cholecalciferol (Vitamin D3) 2,000 units PO DAILY [facility] Last Admin: 07/25/17 08:34 Dose: 2,000 units Fluconazole (Diflucan) 200 mg PO DAILY [facility] Last Admin: 07/25/17 08:34 Dose: 200 mg Ciprofloxacin/Dextrose 400 mg/ (Premix) 200 mls @ 200 mls/hr IV Q12H [facility] Last Admin: 07/24/17 21:30 Dose: 200 mls/hr Sodium Chloride (Normal Saline) 250 mls @ 100 mls/hr IV ASDIRECTED [facility] Last Admin: 07/24/17 12:23 Dose: 100 mls/hr Metronidazole 500 mg/ Premix 100 mls @ 100 mls/hr IV Q8H [facility] Last Admin: 07/25/17 01:50 Dose: 100 mls/hr Magnesium Oxide (Magnesium Oxide) 400 mg PO TID [facility] Last Admin: 07/25/17 08:34 Dose: 400 mg Pantoprazole Sodium (Protonix) 40 mg PO ACBREAKFAST [facility] Last Admin: 07/25/17 07:36 Dose: 40 mg Prednisone (Prednisone) 10 mg PO WITHBREAKFAST [facility] Last Admin: 07/25/17 08:34 Dose: 10 mg Sodium Bicarbonate (Sodium Bicarbonate) 650 mg PO BID [facility] Last Admin: 07/25/17 08:34 Dose: 650 mg Sodium Chloride (Saline Flush) 10 ml FLUSH ASDIRECTED PRN PRN Reason: Keep Vein Open Last Admin: 07/25/17 02:50 Dose: 10 ml Tacrolimus (Prograf) 1 mg PO Q12H [facility] Last Admin: 07/24/17 22:35 Dose: 1 mg Warfarin Sodium (Coumadin) 1.5 mg PO 1600 [facility] Last Admin: 07/24/17 16:34 Dose: 1.5 mg Discontinued Medications Calcitriol (Rocaltrol) 0.5 mcg PO TID [facility] Diatrizoate Meglum/Diatrizoate Sod (Gastrografin 37%) 30 ml PO . DIRECTED ONE Stop: 07/23/17 18:31 Last Admin: 07/23/17 18:59 Dose: 30 ml Dextrose/Sodium Chloride (Dextrose 5%-1/2 Ns) 2,000 mls @ 250 mls/hr IV ASDIRECTED [facility] Last Admin: 07/24/17 04:58 Dose: 250 mls/hr Metronidazole 500 mg/ Premix 100 mls @ 100 mls/hr IV Q8H [facility] Last Admin: 07/24/17 00:16 Dose: 100 mls/hr Metronidazole (Flagyl 500 Mg In Ns 100 Ml) Confirm Administered Dose 100 mls @ as directed .ROUTE .STK-MED ONE Stop: 07/23/17 23:00 Last Admin: 07/23/17 23:38 Dose: Not Given Metronidazole 500 mg/ Premix 100 mls @ 100 mls/hr IV Q8H [facility] Last Admin: 07/24/17 08:33 Dose: 100 mls/hr Non-Formulary Medication (Tacrolimus [Tacrolimus]) 0.5 mg PO Q12H [facility] Last Admin: 07/23/17 23:31 Dose: Not Given Magnesium Oxide (500mg TabOwn Med) 1 each PO TID [facility] Last Admin: 07/23/17 23:19 Dose: 1 each Tacrolimus (Prograf) 1 mg PO Q12HR [facility] - Exam General: Alert HEENT: Pupils Equal Lungs: Clear to Auscultation GI/Abdominal Exam: Normal Bowel Sounds, Soft, Non-Tender, No Organomegaly. No: Mass - Problem List & Annotations (1) Diverticulitis SNOMED Code(s): 152514304 Code(s): K57.92 - DVTRCLI OF INTEST, PART UNSP, W/O PERF OR ABSCESS W/O BLEED Status: Acute Current Visit: Yes Annotation/Comment:: Admit to [facility] for medical treatment. (2) Status post kidney transplant Status: Acute Current Visit: Yes (3) Diabetes type 2, controlled SNOMED Code(s): 20197821 Code(s): E11.9 - TYPE 2 DIABETES MELLITUS WITHOUT COMPLICATIONS Status: Acute Current Visit: Yes Qualifiers: Diabetes mellitus complication status: with kidney complications Diabetes mellitus terminal gauger insulin use: without terminal gauger use Chronic kidney disease stage: stage 2 (mild) (4) Mesenteric artery thrombosis SNOMED Code(s): 987277240 Code(s): K55.069 - ACUTE INFARCTION OF INTESTINE, PART AND EXTENT UNSPECIFIED Status: Chronic Current Visit: Yes (5) CKD (chronic kidney disease) SNOMED Code(s): 836151363 Code(s): N18.9 - CHRONIC KIDNEY DISEASE, UNSPECIFIED Status: Chronic Current Visit: Yes Qualifiers: Chronic kidney disease stage: stage 2 (mild) Qualified Code(s): N18.2 - Chronic kidney disease, stage 2 (mild) (6) HTN (hypertension) SNOMED Code(s): 38069689 Code(s): I10 - ESSENTIAL (PRIMARY) HYPERTENSION Status: Chronic Current Visit: Yes Qualifiers: Hypertension type: essential hypertension Qualified Code(s): I10 - Essential (primary) hypertension (7) Anemia, macrocytic SNOMED Code(s): 05757979 Code(s): D53.9 - NUTRITIONAL ANEMIA, UNSPECIFIED Status: Acute Current Visit: No (8) History of cryptococcal meningitis SNOMED Code(s): 810605275 Code(s): Z86.61 - PERSONAL HISTORY OF INFECTIONS OF THE CENTRAL NERVOUS SYSTEM Status: Acute Current Visit: No (9) MDS (myelodysplastic syndrome) with 5q deletion SNOMED Code(s): 877694340 Code(s): D46.C - MYELODYSPLASTIC SYNDROME W ISOLATED DEL(5Q) CHROMSOML ABNLT Status: Acute Current Visit: Yes (10) Immunosuppressed status SNOMED Code(s): 72839937 Code(s): D89.9 - DISORDER INVOLVING THE IMMUNE MECHANISM, UNSPECIFIED Status: Acute Current Visit: Yes (11) Diarrhea SNOMED Code(s): 06331101 Code(s): R19.7 - DIARRHEA, UNSPECIFIED Status: Acute Current Visit: Yes - Problem List Review Problem List Initiated/Reviewed/Updated: Yes - My Orders Last 24 Hours: My Active Orders 07/24/17 08:41 Convert IV to Saline Lock [OM.PC] Routine 07/24/17 09:00 Fluconazole [Diflucan] 200 mg PO DAILY 07/24/17 09:18 Transfuse RBC [Transfuse Red Blood Cells] [COMM] Routine 07/24/17 09:24 Code Status [Resuscitation Status] Routine 07/24/17 09:30 Sodium Chloride 0.9% [Normal Saline] 250 ml IV ASDIRECTED 07/24/17 16:00 Warfarin [Coumadin] 1.5 mg PO 1600 07/25/17 08:46 CDIFF TOXIN A+B GROUP [OP] Stat 07/25/17 Breakfast Clear Liquid Diet [DIET] 07/25/17 Lunch Regular Diet [DIET] - Plan Plan:: The diarrhea could possibly be related to the diverticulitis. I will obrain a C diff,however.He has improved markedly I'll advance his diet. I'll discharge him home on oral antibiotics Flagyl and ciprofloxacin. 11. With me next week office. His hemoglobin has come up to 8.2 after 2 units of transfusion.
[2017-07-25] MEDS: Ciprofloxacin in D5W 400 MG in Premix Bag 1 BAG IV SCH ×2 (10:23)
[2017-07-25] MEDS: Tacrolimus 1 MG Cap PO SCH (11:24)
--- NOTE | 2017-07-25 13:17 | DISCH ---
DISCHARGE DATE: 07/25/2017 REASON FOR ADMISSION: 1. Abdominal pain. 2. Anemia. 3. Type 2 diabetes. 4. Immunosuppression. 5. Status post renal transplant. 6. Chronic kidney disease. 7. Hypertension. 8. History of cryptococcal meningitis. DISCHARGE DIAGNOSES: 1. Abdominal pain. 2. Anemia. 3. Type 2 diabetes. 4. Immunosuppression. 5. Status post renal transplant. 6. Chronic kidney disease. 7. Hypertension. 8. History of cryptococcal meningitis. 9. Diarrhea. 10.Diverticulitis. CONSULTATIONS: None. PROCEDURES: None. BRIEF HISTORY: This is a 56-year-old male who came in because of generalized weakness, abdominal pain, and diarrhea. CT revealed possible diverticulitis in the right, which showed some fat stranding. He was put on Flagyl and ciprofloxacin, and improved significantly after IV fluid resuscitation as well. He got 2 units of blood. He has myelodysplastic syndrome and his hemoglobin came up to 8.2. The diarrhea persisted. I ordered C diff, which was done prior to discharge, but I will send him home on oral antibiotics with followup as an outpatient. DISCHARGE MEDICATIONS: 1. Fluconazole 200 mg daily. 2. Sodium bicarbonate 650 mg b.i.d. 3. Prograf 1 mg every 12 hours. 4. Coumadin 1.5 mg daily. 5. Vitamin D 2000 units daily. 6. Calcitriol 0.5 mcg t.i.d. 7. Magnesium 400 mg p.o. t.i.d. 8. Omeprazole 20 mg a day. 9. Prednisone 10 mg a day. He will go home on ciprofloxacin 500 mg twice a day and Flagyl 500 mg t.i.d., both for 1 week. FOLLOWUP: In 1 week with me. Please note, I spent more than 35 minutes in the discharge of this patient. /[id number] LOLI/MILES
[2017-07-25 13:20] VITALS: BP 163/93
== END 2017-07-25 13:37 | disposition home or self-care (01) | DRG 391 ==
LOC: EDSTATUS 16:43 → FB.ED 16:43 → FB.MS 19:49
PROVIDERS: ADMIT Family Medicine; ATTEND Family Medicine
PROC: 30233N1 Transfusion of Nonautologous Red Blood Cells into Peripheral Vein, Percutaneous Approach (ICD-10-PCS; principal; 2017-07-24)
DX: K57.92 Diverticulitis of intestine, part unspecified, without perforation or abscess without bleeding (principal); K55.069 Acute infarction of intestine, part and extent unspecified; Z94.0 Kidney transplant status; I12.9 Hypertensive chronic kidney disease with stage 1 through stage 4 chronic kidney disease, or unspecified chronic kidney disease; E11.22 Type 2 diabetes mellitus with diabetic chronic kidney disease; N18.2 Chronic kidney disease, stage 2 (mild); D53.9 Nutritional anemia, unspecified; D46.9 Myelodysplastic syndrome, unspecified; E78.00 Pure hypercholesterolemia, unspecified; Z96.649 Presence of unspecified artificial hip joint; Z86.61 Personal history of infections of the central nervous system; Z79.899 Other long term (current) drug therapy; Z79.01 Long term (current) use of anticoagulants; Z87.440 Personal history of urinary (tract) infections; Z79.52 Long term (current) use of systemic steroids
CPT/HCPCS: 36415; 36430; 74176; 80048; 80053; 82150; 83036; 85025; 85610; 86850; 86900; 86901; 86920; 86922; 87324; 99285; A9270-GY; J0744; J7050; P9016

== ENCOUNTER 2017-08-08 12:19 | Emergency (ER) | payer MEDICAID ==
--- NOTE | 2017-08-08 13:01 | EDM.PDOC ---
ED HPI GENERAL MEDICAL PROBLEM - General Chief Complaint: Chest Pain Stated Complaint: chest pain Time Seen by Provider: 08/08/17 12:19 Source of Information: Reports: Patient History Limitations: Reports: No Limitations - History of Present Illness INITIAL COMMENTS - FREE TEXT/NARRATIVE: 56 y.o.w. m with a H/O CAD, Myelodysplastic syndrome, came by PC to the ed due to SSCP off and on for 10 min or so. Pt was pain free when he arrived here in the ed. No N/V/D or any other acute medical issue at this time. BP 160/80 pulse 98 RR 16 Pulse ox 98% on RA temp 36.8 Onset Date: 08/08/17 Onset Time: 05:00 Duration: Hour(s):, Intermittent Location: Reports: Chest Quality: Reports: Ache, Burning, Dull, Same as Previous Episode Severity: Mild Improves with: Reports: Medication, Rest Worsens with: Reports: Movement Context: Reports: Other (CP, on coumadine) Associated Symptoms: Reports: Chest Pain Middle Chest Pain Score (Numeric/FACES): 4 - Related Data Allergies Allergy/AdvReac Type Severity Reaction Status Date / Time No Known Allergies Allergy Verified 08/08/17 12:51 Home Meds: Home Meds Cholecalciferol (Vitamin D3) [Vitamin D3] 2,000 unit PO DAILY 06/07/15 [History] Calcitriol [Rocaltrol] 0.5 mcg PO TID 08/22/15 [History] Magnesium Oxide [Magnesium] 500 mg PO TID 07/23/17 [History] Omeprazole 20 mg PO DAILY 07/23/17 [History] Phytonadione [Vitamin K] 100 mcg PO 1400 07/23/17 [History] Sodium Bicarbonate 650 mg PO BID 07/23/17 [History] Tacrolimus 1 mg PO Q12H 07/23/17 [History] Warfarin Sodium 1.5 mg PO DAILY 07/23/17 [History] Fluconazole [Diflucan] 200 mg PO DAILY #30 tablet 07/25/17 [Rx] Past Medical History HEENT History: Reports: Impaired Vision Other HEENT History: Pt wears glasses Cardiovascular History: Reports: High Cholesterol, Hypertension Other Cardiovascular History: Pt reports being taken off HTN medication while his is taking antibiotics for recent hospitalization for viral menigitis.(05/13/15 ) Respiratory History: Reports: None Gastrointestinal History: Reports: Cholelithiasis, Diverticulosis, GERD Genitourinary History: Reports: Dialysis, Renal Disease, UTI, Recurrent, Other ( See Below) Other Genitourinary History: kidney transplant 17 years ago (2001) pts fistula was removed early may 2017 from left arm Musculoskeletal History: Reports: None Psychiatric History: Reports: Anxiety, Other (See Below) Other Psychiatric History: gets mildly depressed Endocrine/Metabolic History: Reports: Diabetes, Type II, Hypoparathyroidism Hematologic History: Reports: Anemia, Blood Transfusion(s) Immunologic History: Reports: Solid Organ Transplant Other Immunologic History: kidney transplant 2001 - Infectious Disease History Infectious Disease History: Reports: Chicken Pox - Past Surgical History Head Surgeries/Procedures: Reports: None Cardiovascular Surgical History: Reports: None GI Surgical History: Reports: Appendectomy, Cholecystectomy Male Surgical History: Reports: Other (See Below) Other Male Surgeries/Procedures: kidney transplant 17 years ago Musculoskeletal Surgical History: Reports: Hip Replacement Other Musculoskeletal Surgeries/Procedures:: both hips-replaced Social & Family History - Family History Family Medical History: Noncontributory Cardiac: Reports: Other (See Below) Other Cardiac Family History: Brother had bypass OBGYN: Reports: Endocrine/Metabolic: Reports: Diabetes, type II - Tobacco Use Smoking Status *Q: Former Smoker Years of Tobacco use: 15 Packs/Tins Daily: 0 Used Tobacco, but Quit: Yes Month/Year Tobacco Last Used: unknown Second Hand Smoke Exposure: No - Caffeine Use Caffeine Use: Reports: Coffee Other Caffeine Use: 2-3 cups per day - Alcohol Use Days Per Week of Alcohol Use: 0 - Recreational Drug Use Recreational Drug Use: Yes Drug Use in Last 12 Months: No Recreational Drug Use Frequency: Not Used In Over 6 Months ED ROS GENERAL - Review of Systems Review Of Systems: See Below Constitutional: Reports: No Symptoms HEENT: Reports: No Symptoms Respiratory: Reports: No Symptoms Cardiovascular: Reports: Chest Pain Endocrine: Reports: No Symptoms GI/Abdominal: Reports: No Symptoms : Reports: No Symptoms Musculoskeletal: Reports: No Symptoms Skin: Reports: No Symptoms Neurological: Reports: No Symptoms Psychiatric: Reports: No Symptoms Hematologic/Lymphatic: Reports: No Symptoms Immunologic: Reports: No Symptoms ED EXAM, GENERAL - Physical Exam Exam: See Below Exam Limited By: No Limitations General Appearance: Alert, WD/WN, Mild Distress, Obese Eye Exam: Bilateral Eye: Normal Inspection Ears: Normal External Exam Ear Exam: Bilateral Ear: Auricle Normal Nose: Normal Inspection, Normal Mucosa Throat/Mouth: Normal Inspection, Normal Lips Head: Atraumatic, Normocephalic Neck: Normal Inspection, Supple, Non-Tender Respiratory/Chest: No Respiratory Distress, Lungs Clear, Normal Breath Sounds Cardiovascular: Normal Peripheral Pulses, Regular Rate, Rhythm, No Murmur, No Rub Peripheral Pulses: 1+: Brachial (R) GI/Abdominal: Normal Bowel Sounds (Male) Exam: No Hernia, Deferred Rectal (Males) Exam: Deferred Back Exam: Normal Inspection Extremities: Normal Inspection, Normal Range of Motion, Non-Tender Neurological: Alert, Oriented, CN II-XII Intact, Normal Cognition Psychiatric: Normal Affect, Normal Mood Skin Exam: Warm, Dry, Intact, Normal Color, No Rash Lymphatic: No Adenopathy EKG INTERPRETATION EKG Date: 08/08/17 Time: 12:30 Rhythm: NSR Rate (Beats/Min): 89 Wells: Normal P-Wave: Present QRS: Normal ST-T: Normal QT: Normal Comparison: NA - No Prior EKG Course - Vital Signs Text/Narrative:: 56 y.o.w. m with a H/O CAD, Myelodysplastic syndrome, came by PC to the ed due to SSCP off and on for 10 min or so. Pt was pain free when he arrived here in the ed. No N/V/D or any other acute medical issue at this time. BP 160/80 pulse 98 RR 16 Pulse ox 98% on RA temp 36.8 PE: WNWD W M with Multiple medical issues, come to the ED with CP off/on, on Coumadine Labs: WBC 7.5 HGB 7.5 HCT 21.0Troponin 0.105, INR 1.85 BUN 25 Cr. 1.6 GFR 45 Imaging: CXR:NAD Impression: Non STEMI, Anemia, subtherapeutic INR level. Myelodysplastic Syndrom , S/P Kidneytransplant, multiple medical issues Tx: Nitropaste, NS. Pt took omeprazole [employer] Reexam: Pain free 1.40 pm Consultation: Dr. Aguilar: ship to [place] 1.43 pm Consultation: Dr. Mathias, Hospitalist, [facility]: Accepted the pat for transfere and further care Plan: Transfer to [place] by EMS Last Recorded V/S: Last Vital Signs Temp 36.3 C 08/08/17 14:53 Pulse 99 08/08/17 16:16 Resp 16 08/08/17 16:16 BP 165/87 H 08/08/17 16:16 Pulse Ox 100 08/08/17 16:16 - Orders/Labs/Meds Labs: Laboratory Tests 08/08/17 08/08/17 08/08/17 Range/Units 12:55 12:55 12:55 WBC 4.5 (4.5-12.0) X10-3/uL RBC 2.18 L (4.30-5.75) x10(6)uL Hgb 7.5 L (11.5-15.5) g/dL Hct 21.4 L* (30.0-51.3) % MCV 98.3 H (80-96) fL MCH 34.4 H (27.7-33.6) pg MCHC 35.0 (32.2-35.4) g/dL RDW 14.6 (11.5-15.5) % Plt Count 367 (125-369) X10(3)uL MPV 9.3 (7.4-10.4) fL Neut % (Auto) 79.5 (46-82) % Lymph % (Auto) 11.8 L (13-37) % Power % (Auto) 6.1 (4-12) % Eos % (Auto) 2 (1.0-5.0) % Baso % (Auto) 1 (0-2) % Neut # (Auto) 3.6 (1.6-8.3) # Lymph # (Auto) 0.5 L (0.6-5.0) # Power # (Auto) 0.3 (0.0-1.3) # Eos # (Auto) 0.1 (0.0-0.8) # Baso # (Auto) 0.0 (0.0-0.2) # PT 18.6 H (8.7-11.1) INR 1.82 H (0.89-1.13) Sodium (135-145) mmol/L Potassium (3.5-5.3) mmol/L Chloride (100-110) mmol/L Carbon Dioxide (21-32) mmol/L BUN (7-18) mg/dL Creatinine (0.70-1.30) mg/dL Est Cr Clr Drug Dosing mL/min Estimated GFR (MDRD) (>60) BUN/Creatinine Ratio (9-20) Glucose (80-116) mg/dL Calcium (8.6-10.2) mg/dL Troponin I (<0.017-0.056) ng/mL Amylase 28 (25-115) U/L 08/08/17 08/08/17 Range/Units 12:55 12:55 WBC (4.5-12.0) X10-3/uL RBC (4.30-5.75) x10(6)uL Hgb (11.5-15.5) g/dL Hct (30.0-51.3) % MCV (80-96) fL MCH (27.7-33.6) pg MCHC (32.2-35.4) g/dL RDW (11.5-15.5) % Plt Count (125-369) X10(3)uL MPV (7.4-10.4) fL Neut % (Auto) (46-82) % Lymph % (Auto) (13-37) % Power % (Auto) (4-12) % Eos % (Auto) (1.0-5.0) % Baso % (Auto) (0-2) % Neut # (Auto) (1.6-8.3) # Lymph # (Auto) (0.6-5.0) # Power # (Auto) (0.0-1.3) # Eos # (Auto) (0.0-0.8) # Baso # (Auto) (0.0-0.2) # PT (8.7-11.1) INR (0.89-1.13) Sodium 136 (135-145) mmol/L Potassium 4.1 (3.5-5.3) mmol/L Chloride 100 D (100-110) mmol/L Carbon Dioxide 28 (21-32) mmol/L BUN 25 H (7-18) mg/dL Creatinine 1.6 H (0.70-1.30) mg/dL Est Cr Clr Drug Dosing 45.97 mL/min Estimated GFR (MDRD) 45 L (>60) BUN/Creatinine Ratio 15.6 (9-20) Glucose 345 H D (80-116) mg/dL Calcium 8.7 (8.6-10.2) mg/dL Troponin I 0.105 H* (<0.017-0.056) ng/mL Amylase (25-115) U/L Meds: Medications Discontinued Medications Generic Name Dose Route Start Last Admin Trade Name Freq PRN Reason Stop Dose Admin Sodium Chloride 1,000 mls @ 125 mls/hr 08/08/17 14:15 08/08/17 14:05 Normal Saline IV 125 mls/hr ASDIRECTED LARON Administration Nitroglycerin 1 gm 08/08/17 13:55 08/08/17 14:05 Nitro-Bid 2% TOP 08/08/17 13:56 1 gm ONETIME ONE Administration Departure - Departure Time of Disposition: 14:30 Disposition: DC/Tfer to [facility] Reason for Transfer *Q: Other (No dry chain puller) Condition: Fair Clinical Impression: NSTEMI (non-ST elevated myocardial infarction) Referrals: Du Andersen MD [Primary Care Provider] - Forms: ED Department Discharge
[2017-08-08] MEDS ORDERED: Nitroglycerin 2% Oint 1 GM UD Packet TOP ONE (13:55)
[2017-08-08] MEDS ORDERED: Sodium Chloride 0.9% 1,000 ML IV SCH (14:15)
[2017-08-08 16:16] VITALS: BP 165/87
--- NOTE | 2017-08-09 08:06 | CR ---
INDICATION: Chest pain. CHEST: An AP portable upright view of the chest 08/08/2017 was compared with and 12/09/2009. Relatively poor inspiration and AP positioning emphasizes the heart, which likely is normal in size with epicardial fat pads bilaterally. The aorta is somewhat tortuous with suggestion of some very minimal calcification in the arch. Overlying EKG leads are noted. An active infiltrate or effusion was not identified. The lungs appear to be somewhat hyperaerated. IMPRESSION: No acute process. Full inspiration PA and lateral views of the chest may be helpful when clinically possible. MTDD
== END 2017-08-08 16:30 | disposition critical access hospital (66) ==
LOC: FB.ED 12:19
DX: I21.4 Non-ST elevation (NSTEMI) myocardial infarction (principal); D64.9 Anemia, unspecified; D46.9 Myelodysplastic syndrome, unspecified; I25.10 Atherosclerotic heart disease of native coronary artery without angina pectoris; E11.9 Type 2 diabetes mellitus without complications; E20.9 Hypoparathyroidism, unspecified; I10 Essential (primary) hypertension; E78.00 Pure hypercholesterolemia, unspecified; K21.9 Gastro-esophageal reflux disease without esophagitis; Z79.899 Other long term (current) drug therapy; Z87.891 Personal history of nicotine dependence; Z94.0 Kidney transplant status; Z79.01 Long term (current) use of anticoagulants
CPT/HCPCS: 36415; 71045; 80048; 82150; 84484; 85025; 85610; 93005; 96360; 96361; 99285; A9270; J7040

== ENCOUNTER 2017-08-24 16:20 | Emergency (ER) | payer MEDICAID | END 2017-08-24 17:00 | disposition left against medical advice (07) | LOC: FB.ED 16:20 | DX: Z53.21 Procedure and treatment not carried out due to patient leaving prior to being seen by health care provider (principal) ==

== ENCOUNTER 2017-08-30 12:22 | Emergency (ER) | payer MEDICAID ==
--- NOTE | 2017-08-30 14:49 | CR ---
INDICATION: Chest pain. CHEST: An AP upright portable view of the chest 08/30/2017 was compared with and 04/23/2014, and revealed no significant interval change or definite acute process. The heart did not appear significantly enlarged. The aorta is somewhat tortuous with calcification in the arch. Degenerative changes are noted in the thoracic spine. Overlying EKG leads are noted. An active infiltrate or effusion was not identified. IMPRESSION: No acute process. MTDD
[2017-08-30 18:19] VITALS: BP 150/92
--- NOTE | 2017-09-04 17:37 | ER ---
DATE SEEN: 08/30/2017 HISTORY OF PRESENT ILLNESS: This gentleman arrived complaining of cramping of his chest, 2/10 intensity, started 4 days ago. No associated shortness of breath or cough. He had 2 units of blood transfused on Saturday and Saturday, 08/24/2017, 08/25/2017. He has wondered if he is having heart problems, he is not sure. He is status post kidney transplant. The patient has had anemia, with hemoglobin as low as 7 and currently hemoglobin is 9.4. He is taking transplant medicines. He has diabetes, and that is the reason for his transplantation. PAST MEDICAL HISTORY: Previous history of cryptococcal meningitis, diplopia, diverticulitis, mesenteric artery thrombosis, chronic kidney disease, hypertension, myelodysplastic syndrome with 5q deletion and immunosuppression secondary to transplant medications. CURRENT MEDICATIONS: 1. Transplant medicine is tacrolimus. He has done quite well with this. 2. His other medicines: a. Anticoagulants. b. Warfarin 1.5 mg daily. c. Fluconazole 200 mg daily. d. Magnesium oxide e. Omeprazole 20 mg daily. f. Vitamin K 100 mcg daily. g. Sodium bicarbonate 650 mg b.i.d. h. Calcitriol 0.5 mcg t.i.d. i. Vitamin D 2000 units daily. He is known also have anxiety disorder, depression, anemia (see above). Status post cholecystectomy, 1 failed right lower quadrant kidney transplant which was removed, left kidney transplant which is stable presently, and he had a fistula in his forearm removed since he had been on dialysis for a long time, but this resolved as he stabilized on his kidney transplant. He is taking anticoagulants noted above, Coumadin to prevent further recurrent DVTs. PHYSICAL EXAMINATION: GENERAL: [place] man, who seems to be overanxious about his symptoms, does not appear to be in any distress. [place] fellow, slightly overweight, however, has protuberant abdomen. VITAL SIGNS: 99% oxygen saturation, temperature is 97.8, respirations 21, blood pressure 150/92, and heart rate 83. HEENT: Pharynx without erythema, without compromised mucosa. Mucosa is not dry. Alert. No thyromegaly or masses. NECK: No cervical adenopathy. No bruits. LUNGS: Clear without rales. HEART: S1, S2. No irregular rate and rhythm. ABDOMEN: Soft. Moderate bulge in his abdomen, bilateral right and left with both scars, right and left, healed without hernia. Moderate increased abdominal girth. EXTREMITIES: No pedal edema. No anasarca. : Genitalia negative. LABORATORY FINDINGS: Hemoglobin 8.8 slightly down from what it was - it was 9.5 after the 2-unit transfusion this weekend. White count 3500, PMNs 75, lymphocytes 14, monos 8. D-dimer less than 100. INR 2.02 and therapeutic for him and sodium 139, potassium 4.9, chloride 101, bicarbonate 33 (the latter two are secondary to kidney transplant), BUN 25, creatinine 1.6. Those are wonderful renal values for somebody who has had a transplant. GFR is 45, glucose 315, ALT elevated 182, AST elevated 52 secondary to tacrolimus. Alkaline phosphatase elevated 174, albumin 2.8, but with a calculated calcium elevated probably in the range of 10 (my calculator is down, but it is estimated close to that). EKG was repeated x2. He had Q-waves, intraventricular conduction delay noted. This is mild, but the Q-waves in lead III. Otherwise, no evidence for ST elevation. Nonspecific T-wave abnormality in inferior leads, which is T-wave inversion, or repolarization abnormality. He had minimal ST elevation of 0.5 mm in lower leads aVF, lead II, and lead III. By comparing August 08, 2017, he had similar EKG changes and these changes today are unchanged from before. No suggested new ST-elevation or STEMI or non-STEMI. ASSESSMENT: 1. Nonspecific chest discomfort. 2. Status post kidney transplant. 3. Tightness in chest, etiology indeterminate. No evidence for pulmonary embolism. 4. Anxiety disorder may magnify any chest changes. 5. He has such increased abdominal girth, I think there is excessive weight- obesity with fullness (no evidence for ascites) or hepatomegaly to suggest liver failure, but this increased abdominal girth reflects his obesity, and this may have some traction and pulsion of the anterior abdominal structures. His current weight is 75.75 kg. Not particularly increased. BMI 29.0 kg/m2. 6. The patient advised to follow up with his doctor this next week. He was also advised to start walking to decrease his weight that may take his mind off his anxiety about his "chest cramping". 7. A trial of Imdur 1 tablet daily, 30 mg daily. OTHER DIAGNOSES: Obesity, diabetes, diabetic peripheral neuropathy, anxiety, depression, anemia, still has a low hemoglobin 8.5 range from previous transfusion, status post transfusion this last week. I think there is no relationship for transfusion to the patient's cramping in his chest. Status post cholecystectomy and 2 renal transplants and removal of left arm fistula in 2014, second transplant performed in 2001. /[id number] AMY/MILES
--- OUTSIDE RECORDS SUMMARY | 2017-09-09 15:23 | XMSREPORT | Summary of Care ---
:1960 Author Organization [facility] Address [address] [place] [address] Phone Care Team Providers Name Role Phone Du Andersen MD Primary Care Provider Yumiko Duncan RN Unavailable Yu Reeves RN, [facility] Medical Billing Coordinator Du Andersen MD Attributed Provider Reason for Referral (Routine) Status Reason Specialty Diagnoses / Procedures Referred By Contact Referred To Contact [address] [address] (Routine) Status Reason Specialty Diagnoses / Procedures Referred By Contact Referred To Contact [address] [address] Reason for Visit Reason Comments Chest Pain states since saturday when he was discharged has chest cramping, worse with movement. Has had recent blood transfusion. No nausea or vomiting. Pt states he also has laryngitis so has some throat and tooth pain. Pt reports he states he was started on alpraxolam yesterday. Auth/Cert Status Reason Specialty Diagnoses / Procedures Referred By Contact Referred To Contact Encounter Details Date Type Department Care Team Description 09/03/2017 - Hospital Encounter [facility] Jelani Fontanez MD [address] [place], [place] [phone] NSTEMI (non-ST 09/08/2017 CENTER 5A Provider, [facility] Procedure elevated myocardial 5225 [id number] Jamshid Vela MD [address] [place] [address] [phone] infarction) [place] [address] Allergies Active Allergy Reactions Severity Noted Date Comments Measles, Mumps & Other (Specify in High 05/23/2017 Kidney Rubella Vac Comments) Transplant-Immunosuppre ssed Nsaids Other (Specify in High 05/23/2017 Kidney transplant Comments) patient. NSAIDs contraindicated. Zoster Vaccine Live Other (Specify in High 05/23/2017 Kidney Comments) Transplant-Immunosuppre ssed as of this encounter Medications Prescription Sig. Disp. Refills Start End Status Date Date Phytonadione, Take 1 tablet (100 100 tablet 3 12/27/19 Active vitamin K, 100 MCG micrograms) by 16 TABS mouth once daily tabletIndications: while on warfarin Warfarin to stabilize labile anticoagulation INRs and dietary vitamin K consumption. predniSONE 5 mg Take 2 tablets (10 60 tablet 11 12/12/19 Active tabletIndications: mg) by mouth 1 time 17 Kidney replaced by per day transplant calcitriol Take 2 capsules 540 capsule 2 01/30/20 Active (ROCALTROL) 0.25 (0.5 mcg) by mouth 17 mcg 3 times a day capsuleIndications: CKD (chronic kidney disease) stage 3, GFR 30-59 ml/min sodium bicarbonate Take 1 tablet (650 360 tablet 3 02/21/20 Active 650 MG mg) by mouth 2 17 tabletIndications: times a day Metabolic acidosis warfarin (COUMADIN) [facility] 90 tablet 1 04/17/20 Active 3 MG Anticoagulation 17 tabletIndications: Pt:Take as Mesenteric artery directed. thrombosis, (Insurance Myelodysplastic Purposes: 1.5-3 mg syndrome with 5 q daily dose range) minus Call [phone] if ? vitamin D3, Take 1 tablet 06/04/19 Active cholecalciferol, (1,000 Units) by 18 1000 unit tablet mouth 1 time per day acetaminophen Take 1-2 tablets by Active (TYLENOL) 325 mg mouth Every 4 hours tablet as needed for mild pain, fever > (indicate temp) or headache fluconazole Take 1 tablet (200 30 tablet 6 08/15/19 Active (DIFLUCAN) 200 mg mg) by mouth 1 time 18 tabletIndications: per day Cryptococcal meningitis tacrolimus TAKE TWO CAPSULES 120 capsule 9 08/31/19 Active (PROGRAF) 0.5 mg BY MOUTH EVERY 18 capsuleIndications: MORNING AND TAKE Kidney replaced by TWO CAPSULES BY transplant, MOUTH EACH EVENING Encounter for (TAKE 12 HOURS long-term (current) APART) use of medications isosorbide Take 1 tablet by 08/31/19 Active mononitrate (IMDUR) mouth 1 time per 18 30 mg SR tablet (24 day hr) ALPRAZolam (XANAX) Take 1 tablet (0.25 10 tablet 0 09/03/19 Active 0.25 mg mg) by mouth Every 18 tabletIndications: 12 hours as needed Chest pain, for anxiety unspecified type magnesium gluconate Take 500 mg by Active (MAGONATE) 500 mg mouth 3 times a day tablet omeprazole Take 20 mg by mouth Active (PRILOSEC) 20 mg 1 time a day in the capsule morning aspirin 81 mg Take 1 tablet (81 90 tablet 0 09/10/19 Active chewable mg) by mouth 1 time 18 018 tabletIndications: per day NSTEMI (non-ST elevated myocardial infarction) carVEDilol (COREG) Take 1 tablet (6.25 180 tablet 0 09/09/19 Active 6.25 mg mg) by mouth 2 18 018 tabletIndications: times a day with NSTEMI (non-ST meals elevated myocardial infarction) ticagrelor Take 1 tablet (90 60 tablet 11 09/09/19 Active (BRILINTA) 90 mg mg) by mouth 2 18 tabletIndications: times a day NSTEMI (non-ST elevated myocardial infarction) MAGNESIUM PO Take 1 tablet by Discontinued mouth 3 times a day 018 as of this encounter Active Problems Problem Noted Date NSTEMI (non-ST elevated myocardial infarction) 09/08/2017 Symptomatic anemia 08/24/2017 Elevated troponin level 08/24/2017 Hemodialysis AV fistula thrombosis, subsequent encounter 04/30/2017 Overview: 04/2017 left radiocephalic fistula thrombosis. 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 Left lower quadrant pain 12/07/2015 Left flank pain 12/07/2015 Postsurgical hypoparathyroidism 12/07/2015 Hypocalcemia 12/07/2015 Myelodysplastic syndrome with 5 q minus 09/28/2015 Acute lumbar radiculopathy 09/19/2015 Macrocytic anemia 09/07/2015 Spermatocele 06/28/2009 Calculus of gallbladder 06/28/2009 Kidney replaced by transplant 01/14/2002 Encounter for long-term (current) use of medications 01/14/2002 Essential hypertension Immunologic deficiency syndrome Type II or unspecified type diabetes mellitus without mention of complication, not stated as uncontrolled as of this encounter Resolved Problems Problem Noted Date Resolved Date NSTEMI (non-ST elevated myocardial infarction) 08/09/2017 08/24/2017 Cryptococcal meningoencephalitis 07/05/2015 10/23/2016 Hyponatremia with decreased serum osmolality 06/13/2015 08/24/2017 Acute hyponatremia 05/19/2015 08/24/2017 Acute febrile illness 05/19/2015 01/24/2016 Pneumatosis coli 05/19/2015 01/24/2016 Diarrhea 07/01/2009 01/24/2016 Urinary tract infection, site not specified 06/28/2009 01/24/2016 Orchitis and epididymitis 06/17/2009 01/24/2016 as of this encounter Immunizations Name Dates Previously Given Next Due FLU VACCINE SINGLE 04/18/2016 DOSE(3YR+Fluarix/Fluzone,6MO+Flulaval,18 +AFLURIA) FLU VACCINE SINGLE 01/25/2017 DOSE(3YR+Fluarix/Fluzone;6MO+Flulaval;18 yr+Afluria) H1N1 Injectable Vaccine 07/01/2009 HEP B, adult 10/04/2014, 08/09/2014, 05/17/2014 Influenza Vaccine 03/04/2015 Influenza Vaccine,unspecified 02/15/2014, 02/09/2013, 02/21/2012, 03/05/2011, 01/26/2009, 03/11/2008, 04/04/2007, 04/08/2006 Meningococcal MCV4P (Menactra) 10/23/2016 Pneumococcal Conj PCV13 10/23/2016 Pneumococcal Polysaccharide PPSV23 07/01/2009 TDAP 07/01/2009 as of this encounter Social History Tobacco Use Types Packs/Day Years Used Date Former Smoker Cigarettes Quit: 05/13/1989 Smokeless Tobacco: Current User Chew Comments: 1 tin or less per week Alcohol Use Drinks/Week oz/Week Comments No Sex Assigned at Date Recorded Not on file as of this encounter Last Filed Vital Signs Vital Sign Reading Time Taken Blood Pressure 123/77 09/08/2017 7:29 AM CDT Pulse 74 09/08/2017 7:29 AM CDT Temperature 37.2 C (99 F) 09/08/2017 7:29 AM CDT Respiratory Rate 17 09/08/2017 7:29 AM CDT Oxygen Saturation 96% 09/08/2017 7:29 AM CDT Inhaled Oxygen Concentration - - Weight 74.1 kg (163 lb 6.4 oz) 09/03/2017 6:54 PM CDT Height 167.6 cm (5' 6") 09/03/2017 6:54 PM CDT Body Mass Index 26.37 09/03/2017 6:54 PM CDT in this encounter Functional Status Functional Status Response Date of Assessment Is the person deaf or does he/she have serious difficulty No 09/03/2017 hearing? Is this person blind or does he/she have difficulty Yes 09/03/2017 seeing even when wearing glasses? Do you have difficulty with walking, balance, climbing No 09/03/2017 stairs, or had a fall in the last 3 months? Does the patient have difficulty dressing or bathing? No 09/03/2017 Because of a physical, mental, or emotional condition; No 09/03/2017 does this person have difficulty doing errands alone such as visiting a doctor's office or shopping? Cognitive Status Response Date of Assessment Because of a physical, mental, or emotional condition; No 09/03/2017 does this person have serious difficulty concentrating, remembering, or making decisions? as of this encounter Discharge Instructions Trixie Chavez, PHARM D - 09/08/2017Warfarin Discharge Instructions: Warfarin 1.5 mg dose given 09/08/17 in the hospital. Check INR tomorrow on 09/09/17 The following attachments cannot be sent through Care Everywhere.EATING HEART- HEALTHY FOODS (TURKMEN)in this encounter Progress Notes Melisa Cameron MD - 09/08/2017 2:27 PM CDTFormatting of this note may be different from the original. 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 He's admitted with NSTEMI, underwent LHC and has an RCA stent. 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 He's admitted with NSTEMI, underwent LHC and has an RCA stent. Sleeping hard this afternoon. Laying flat. Not SOB. PO intake wasn't documented. Neither was the urine, just 300 ml. Objective: Current Vital Signs Temp: 99 F (37.2 C) BP: 123/77 Pulse: 74 O2 Device: Room Air Resp: 17 Pain Ratin (out of 10) Weight: 74.1 kg (163 lb 6.4 oz) SpO2: 96 % Intake/Output Summary (Last 24 hours) at 09/08/17 1427 Last data filed at 09/07/17 2103 Gross per 24 hour Intake 0 ml Output 300 ml Net -300 ml GENERAL:in NAD HEENT: swollen face noted EXT: edema not seen in legs LABS: Lab Results Component Value Date CO2 26 09/07/2017 GLUCOSE 164 (H) 09/08/2017 BUN 23 (H) 09/07/2017 CREATSERUM 1.51 (H) 09/07/2017 CA 8.8 09/07/2017 PHOSPHORUS 4.4 09/04/2017 ALBUMIN 3.3 (L) 09/06/2017 NA 132 (L) 09/07/2017 POTASSIUM 4.1 09/07/2017 CL 100 09/07/2017 Lab Results Component Value Date WBC 5.6 09/06/2017 RBC 2.85 (L) 09/06/2017 HEMOGLOBIN 8.6 (L) 09/06/2017 HEMATOCRIT 24.9 (L) 09/06/2017 MCV 87.4 09/06/2017 MCH 30.2 09/06/2017 MCHC 34.5 09/06/2017 RDW 18.1 (A) 03/07/2015 PLTCOUNT 297 09/06/2017 NEUTROPCT 71.2 09/06/2017 BANDPCT 11.0 06/26/2017 LYMPHSPCT 15.3 09/06/2017 MONOSPCT 11.2 09/06/2017 EOSPCT 1.8 09/06/2017 BASOPHILPCT 0.5 09/06/2017 METAMYELOPCT 2.0 07/15/2016 MYELOCYTEPCT 3.0 10/19/2015 Lab Results Component Value Date PTHINTACT 5 (L) 10/19/2015 CA 8.8 09/07/2017 ICA 1.17 07/15/2016 PHOSPHORUS 4.4 09/04/2017 Impression and Plan: 1. 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 -Cr baseline is 1.3 to 1.5. -Had HENOK post IV contrast, was improving then yesterday cr went up. -Cr better yesterday and IVF stopped. -no lab done today. We should do lab in AM. I've requested a renal panel. 2. Immunosuppression. -On FK and Pred only due to prior fungal infection. -FK goal is 4-6. -checking FK tomorrow. 3. HTN. -BP looks good today. 4. NSTEMI with RCA stenting. -No more CP since stented. 5. Hypoparathyroidism. -On calcitriol for maintenance at an unchanged dose. 6. Anemia of CKD and MDS. -No IV iron indicated due to extremely high ferritin in the past. Not checked since May but it was high before then, too. -Hg has been below goal. -He hasn't responded to Aranesp before. -No CBC's ordered. I'll defer to IM. Melisa Cameron MD - 09/07/2017 12:13 PM CDTFormatting of this note may be different from the original. 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 He's admitted with NSTEMI, underwent LHC and has an RCA stent. No CP or SOB now. Making urine but not all is getting recorded. Was started back on IVF since the creatinine went up yesterday. It's slightly better. Hollis has increased gas and bloating today but no other GI complaints. Objective: Current Vital Signs Temp: 99.7 F (37.6 C) BP: 150/79 Pulse: 83 O2 Device: Room Air Resp: 17 Pain Ratin (out of 10) Weight: 74.1 kg (163 lb 6.4 oz) SpO2: 95 % Intake/Output Summary (Last 24 hours) at 09/07/17 1213 Last data filed at 09/07/17 0600 Gross per 24 hour Intake 834 ml Output 700 ml Net 134 ml GENERAL: in NAD HEENT: mild facial edema NECK: no JVD seen CARDIAC: RRR PULMONARY: CTA bilaterally ABDOMEN: mod distention, BS+ NT : no allograft tenderness/swelling. No powers. EXTREMITIES: no edema seen SKIN: no rashes noted NEURO: alert, no acute confusion LABS: Lab Results Component Value Date CO2 26 09/07/2017 GLUCOSE 166 (H) 09/07/2017 BUN 23 (H) 09/07/2017 CREATSERUM 1.51 (H) 09/07/2017 CA 8.8 09/07/2017 PHOSPHORUS 4.4 09/04/2017 ALBUMIN 3.3 (L) 09/06/2017 NA 132 (L) 09/07/2017 POTASSIUM 4.1 09/07/2017 CL 100 09/07/2017 Lab Results Component Value Date WBC 5.6 09/06/2017 RBC 2.85 (L) 09/06/2017 HEMOGLOBIN 8.6 (L) 09/06/2017 HEMATOCRIT 24.9 (L) 09/06/2017 MCV 87.4 09/06/2017 MCH 30.2 09/06/2017 MCHC 34.5 09/06/2017 RDW 18.1 (A) 03/07/2015 PLTCOUNT 297 09/06/2017 NEUTROPCT 71.2 09/06/2017 BANDPCT 11.0 06/26/2017 LYMPHSPCT 15.3 09/06/2017 MONOSPCT 11.2 09/06/2017 EOSPCT 1.8 09/06/2017 BASOPHILPCT 0.5 09/06/2017 METAMYELOPCT 2.0 07/15/2016 MYELOCYTEPCT 3.0 10/19/2015 Lab Results Component Value Date PTHINTACT 5 (L) 10/19/2015 CA 8.8 09/07/2017 ICA 1.17 07/15/2016 PHOSPHORUS 4.4 09/04/2017 Impression and Plan: 1. 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 -Cr baseline is 1.3 to 1.5. -Had HENOK post IV contrast, was improving then yesterday cr went up. -Cr better today. Can stop IVF, which was NS at 125 ml/hr. 2. Immunosuppression. -On FK and Pred only due to prior fungal infection. -FK goal is 4-6. -checking FK Saturday again. 3. HTN. -BP not at goal. -Med changes are per IM. 4. NSTEMI with RCA stenting. -No more CP. 5. Hypoparathyroidism. -On calcitriol for maintenance. 6. Anemia of CKD and MDS. -No IV iron indicated due to extremely high ferritin in the past. Not checked since May but it was high before then, too. -Hg is below goal. -He hasn't responded to Aranesp before. -Hematology follows Hollis and is aware. Jamshid Elaine MD - 09/07/2017 10:20 AM CDTFormatting of this note may be different from the original. Internal Medicine Progress note: Exam date: 09/07/2017 Hospital day # 2 Impression and Plan: #NSTEMI. Cardiology on the case S/P Cardiac cath Stent to RCA Continue ASA, Brilinta and IMDUR Monitor on tele overnight Add coreg which should help with his sinus tachycardia At some point patient was on BB and they were discontinued Per tele here he had runs up to 140 #H/O CKD and renal transplant. Continue Prograf. Prednisone. Cr improved to 1.5 Nephrology D/C IVF # MDS with severe anemia. Hematology been following # Type 2 DM. Continue with Lantus and ISS # Mesenteric artery thrombosis. 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 Cardiovascular: No chest pain Abdomen: No abdominal pain Examination: Vitals: 09/06/17 2300 09/06/17 2339 09/07/17 0000 09/07/17 0747 BP: 133/71 150/79 Pulse: 67 68 67 83 Resp: 17 17 Temp: 98.1 F (36.7 C) 99.7 F (37.6 C) SpO2: 94% 95% Weight: Height: Temp (24hrs), Av.4 F (37.4 C), Min:97.9 F (36.6 C), Max:100.3 F ( 37.9 C) Systolic (24hrs), Av , Min:117 , Max:139 Intake/Output Summary (Last 24 hours) at 09/07/17 1020 Last data filed at 09/07/17 0600 Gross per 24 hour Intake 834 ml Output 700 ml Net 134 ml No data found. General: No acute distress Respiratory: bilateral breath sound present. No wheeze, no crackles. Cardiovascular: S1 S2 heard Abdomen: soft , BS present. Musculoskeletal: no edema Neuro: awake, moving extremities grossly Alvaro Myles MD - 09/06/2017 10:39 PM CDTFormatting of this note may be different from the original. NEPHROLOGY DAILY PROGRESS NOTE Name: Hollis Barrera Assessment/Plan: 1. Status post living related kidney donor transplantation, 2001. 2. Chronic kidney disease stage 3 with a baseline creatinine of 1.3-1.5. . 3. NSTEMI s/p RCA stent placement 4. Immunosuppression. 5. Anemia with myelodysplastic syndrome. 6. History of mesenteric thrombosis, on anticoagulation. Plan: IVF has been discontinued yesterday - creatinine noted to worsen - clinically he is not fluid overloaded - will try gentle IVF. - he has high ferritin levels and not candidate for IV Iron. - Target prograf levels- 3-6 - Current levels 6.4. - No changes in prograf dosing. - He is on diflucan indefinitely for cryptococcal meningitis. - not on cellcept Subjective: --Patient seen this am. --Events noted. Objective: Vitals: Current Vital Signs Temp: 97.9 F (36.6 C) BP: 125/86 Pulse: 82 O2 Device: Room Air Resp: 16 Pain Ratin (out of 10) Weight: 74.1 kg (163 lb 6.4 oz) SpO2: 97 % Vitals Min/Max Last 24 Hours Vital Signs Min/Max (last 24 hours) Flowsheet Row Name Min Max Temp 97.9 F (36.6 C) 100.3 F (37.9 C) BP: Systolic 117 139 BP: Diastolic 67 86 Pulse 82 101 Resp 16 17 SpO2 95 % 97 % MAP (mm Hg) 81 mm Hg 81 mm Hg Intake and Output Last 24 Hours Intake/Output Summary (Last 24 hours) at 09/06/17 2240 Last data filed at 09/06/17 0649 Gross per 24 hour Intake 240 ml Output 0 ml Net 240 ml Physical Exam: General Appearance: alert, well appearing, and in no distress Chest: Clear to auscultate bilaterally Heart: normal rate, regular rhythm, normal S1, S2, no murmurs, rubs, clicks or gallops Abdomen: soft, nontender, nondistended, BS + Extremities: no pedal edema noted Diagnostics and Labs: Labs (Last day) 09/06/17755 - 09/06/17755 CBC 09/06/17755 CBC WBC 4.0-11.0 (K/uL) 5.6 RBC 4.40-5.80 (M/uL) 2.85 Hemoglobin 13.5-17.5 (g/dL) 8.6 Hematocrit 40.0-50.0 (%) 24.9 MCV 80.0-98.0 (fL) 87.4 MCH 25.5-34.0 (pg) 30.2 MCHC 31.5-36.5 (g/dL) 34.5 RDW-CV 11.5-15.5 (%) 15.0 RDW-SD 35.5-50.0 (fl) 46.2 Platelet Count 140-400 (K/uL) 297 MPV 8.5-12.0 (fL) 10.8 09/06/17 075 - 09/06/17755 CHEMISTRY 09/06/1775509/06/17755 CHEMISTRY Glucose 70-100 (mg/dL) 152 Sodium 135-145 (meq/L) 134 Potassium 3.5-5.3 (meq/L) 4.3 Chloride 99-110 (meq/L) 100 CO2 20-29 (meq/L) 23 Anion Gap with K 6-20 (meq/L) 15 BUN 6-22 (mg/dL) 26 Creatinine 0.80-1.30 (mg/dL) 1.60 BUN/Creatinine Ratio 10.0-25.0 16.3 Calcium 8.5-10.5 (mg/dL) 9.1 Bilirubin Total 0.2-1.2 (mg/dL) 1.0 Bilirubin Direct 0.0-0.4 (mg/dL) 0.5 Bilirubin Indirect 0.0-0.8 (mg/dL) 0.5 Alkaline Phosphatase 30-150 (U/L) 142 ALT - SGPT 0-55 (U/L) 126 AST - SGOT 0-35 (U/L) 35 Protein Total 6.0-8.2 (g/dL) 6.5 Albumin 3.5-5.0 (g/dL) 3.3 eGFR >=60 (mL/min/1.73m2) 54 eGFR Non- >=60 (mL/min/1.73m2) 45 09/06/17 075 - 09/06/17 075 DIFFERENTIAL 09/06/17 075 DIFFERENTIAL Seg Neut Absolute 1.8-8.0 (K/uL) 4.0 Lymphocytes Absolute 0.8-4.1 (K/uL) 0.9 Monocytes Absolute 0.0-1.0 (K/uL) 0.6 Eosinophils Absolute 0.0-0.7 (K/uL) 0.1 Basophil Absolute 0.0-0.2 (K/uL) 0.0 Immature Granulocyte Absolute 0.00-0.06 (K/uL) 0.05 Neutrophils Abs. (Segs and Bands) (/uL) 4000 Neutrophils Percent (%) 71.2 Lymphocytes Percent (%) 15.3 Monocytes Percent (%) 11.2 Immature Granulocyte Percent (%) 0.9 Eosinophils Percent (%) 1.8 Basophil Percent (%) 0.5 09/06/17 075 - 09/06/17 0756 GENERAL COAGULATION 09/06/17 0756 GENERAL COAGULATION Protime 12.0-14.5 (secs) 22.8 INR 2.0-3.5 1.9 09/06/172048 - 09/06/17 0642 GLUCOSE POINT OF CARE 09/06/17204809/06/17 1727 09/06/17 1218 09/06/17 0642 GLUCOSE POINT OF CARE Glucose POC 70-100 (mg/dL) 258 272 155 149 09/06/17 0756 - 09/06/17 0756 LIPID 09/06/17 0756 LIPID Cholesterol 100-200 (mg/dL) 79 HDL 40-80 (mg/dL) 31 LDL 0-129 (mg/dL) 24 Triglyceride 50-150 (mg/dL) 120 09/06/17 0756 - 09/06/17 0756 THERAPEUTIC DRUGS MISC 09/06/17 0756 THERAPEUTIC DRUGS MIS Tacrolimus 5.0-20.0 (ng/mL) 6.4 09/06/17 0756 - 09/06/17 0756 OTHER 09/06/17 0756 OTHER Age (Years) 56 Lab Results Component Value Date PTHINTACT 5 (L) 10/19/2015 CA 9.1 09/06/2017 ICA 1.17 07/15/2016 PHOSPHORUS 4.4 09/04/2017 Last Vitamin D: No results found for: [id number] Last Iron: Lab Results Component Value Date FETOT 192 (H) 05/21/2017 FERRITINSER 7205 (H) 05/21/2017 TIBC 207 (L) 05/21/2017 FESAT 93 (H) 05/21/2017 Current Facility-Administered Medications Medication Dose Route Frequency Provider Last Rate Last Dose sodium chloride 0.9% IV solution IV Continuous Jamshid Elaine MD 100 mL/ hr at 09/06/17 1425 nitroglycerin (NITROSTAT) sublingual tablet 0.4 mg 0.4 mg Sublingual Every 5 minutes prn Franky Su DO aspirin chewable tablet 81 mg 81 mg Oral Daily Franky Su DO 81 mg at 09/06/17 0918 ticagrelor (BRILINTA) tablet 90 mg 90 mg Oral 2 times a day Franky Su DO 90 mg at 09/06/172112 ALPRAZolam (XANAX) tablet 0.25 mg 0.25 mg Oral Every 12 hours prn Reinaldo Kaur MD calcitriol (ROCALTROL) capsule 0.5 mcg 0.5 mcg Oral 3 times a day Reinaldo Kaur MD 0.5 mcg at 09/06/172100 fluconazole (DIFLUCAN) tablet 200 mg 200 mg Oral daily Reinaldo Kaur MD 200 mg at 09/06/17 0919 isosorbide mononitrate (IMDUR) SR tablet (24 hr) 30 mg 30 mg Oral daily Reinaldo Kaur MD30 mg at 09/06/17917 Phytonadione (vitamin K) tablet 100 mcg 100 mcg Oral Daily Reinaldo Kaur MD 100 mcg at 09/06/17918 predniSONE tablet 10 mg 10 mg Oral daily Reinaldo Kaur MD 10 mg at 09/06/17917 sodium bicarbonate tablet 650 mg 650 mg Oral 2 times a day Reinaldo Kaur MD 650 mg at 09/06/172100 tacrolimus (PROGRAF) capsule 1 mg 1 mg Oral Every 12 hours with food Reinaldo Kaur MD 1 mg at 09/06/172100 vitamin D3 (cholecalciferol) tablet 1,000 Units 1,000 Units Oral daily Reinaldo Kaur MD 1,000 Units at 09/06/17917 sodium chloride 0.9% prefilled 10 mL syringe (Materials Management Item) 10 mL 10 mL IV 2 timesa day and prn Reinaldo Kaur MD 10 mL at 09/06/172105 acetaminophen (TYLENOL) tablet 650 mg 650 mg Oral Every 4 hours prn Reinaldo Kaur MD 650mg at 09/06/17 1145 traMADol (ULTRAM) tablet 50 mg 50 mg Oral Every 6 hours prn Reinadlo Kaur MD 50 mg at 09/06/17 1448 melatonin tablet 3 mg 3 mg Oral Bedtime prn Reinaldo Kaur MD insulin glargine (LANTUS) SQ injection 8 Units Subcutaneous at bedtime Reinaldo Kaur MD 8 Units at 09/06/172100 dextrose 50% IV solution 50 mL 25 g IV PRN per parameter Reinaldo Kaur MD glucagon for injection 1 mg vial 1 mg 1 mg Intramuscular PRN per parameter Reinaldo Kaur MD dextrose chewable tablet 16 g 4 tablet Oral PRN per parameter Reinaldo Kaur MD Or carbohydrate 15 g 15 g Oral PRN per parameter Reinaldo Kaur MD insulin aspart (NovoLOG) SQ correction scale (Adult) 2-8 Units Subcutaneous 3 times a day with meals Reinaldo Kaur MD 5 Units at 1731 .Anticoagulation (WARFARIN) therapy nursing reminder 1 each Does not apply Reminder Reinaldo Kaur MD Carey, Jantey, MD - 09/06/2017 9:26 PM CDTFormatting of this note may be different from the original. Internal Medicine Progress note: Exam date: 09/06/2017 Hospital day # 1 Impression and Plan: #NSTEMI. Cardiology on the case S/P Cardiac cath Stent to RCA Continue ASA, Brilinta and IMDUR Monitor on tele overnight #H/O CKD and renal transplant. Continue Prograf. Prednisone. worsening Cr after angiogram I placed him back on ivf Repeat labs tomorrow # MDS with severe anemia . Hematology consult # Type 2 DM. Continue with Lantus and ISS # Mesenteric artery thrombosis. Pharmacy to manage coumadin #H/O [employer] disseminated cryptococcus on Diflucan Interval History: No acute events overnight C/o fatigue Review of system: Respiratory: No cough. Cardiovascular: No chest pain Abdomen: No abdominal pain Examination: Vitals: 09/06/17 0804 09/06/17 1100 09/06/17 1524 09/06/17 1938 BP: 139/78 117/75 125/86 Pulse: 98 101 95 82 Resp: 17 16 16 16 Temp: 99.4 F (37.4 C) 99.7 F (37.6 C) 98.4 F (36.9 C) 97.9 F ( 36.6 C) SpO2: 95% 96% 97% Weight: Height: Temp (24hrs), Av.4 F (37.4 C), Min:97.9 F (36.6 C), Max:100.3 F ( 37.9 C) Systolic (24hrs), Av , Min:117 , Max:139 Intake/Output Summary (Last 24 hours) at 09/06/17 2126 Last data filed at 09/06/17 0649 Gross per 24 hour Intake 240 ml Output 0 ml Net 240 ml No data found. General: No acute distress Respiratory: bilateral breath sound present. No wheeze, no crackles. Cardiovascular: S1 S2 heard Abdomen: soft , BS present. Musculoskeletal: no edema Neuro: awake, moving extremities grossly Jamshid Elaine MD - 09/05/2017 11:26 PM CDTFormatting of this note may be different from the original. Internal Medicine Progress note: Exam date: 09/05/2017 Hospital day # 0 Impression and Plan: #NSTEMI. Cardiology on the case S/P Cardiac cath Stent to RCA Continue ASA, Brilinta and IMDUR Monitor on tele overnight #H/O CKD and renal transplant. Continue Prograf. Prednisone. # MDS with severe anemia . Hematology consult # Type 2 DM. Continue with Lantus and ISS # Mesenteric artery thrombosis. 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 Cardiovascular: No chest pain Abdomen: No abdominal pain Examination: Vitals: 09/05/17 19109/05/17202109/05/17212709/05/17 2312 BP: 149/59 129/67 Pulse: 84 94 Resp: 16 16 Temp: 101.7 F (38.7 C) 101.2 F (38.4 C) 99.1 F (37.3 C) 100 F ( 37.8 C) SpO2: 99% 95% Weight: Height: Temp (24hrs), Av F (36.7 C), Min:97.2 F (36.2 C), Max:98.2 F ( 36.8 C) Systolic (24hrs), Av , Min:103 , Max:143 No intake or output data in the 24 hours ending 09/05/17 2326 Patient Vitals for the past 72 hrs: Weight 09/03/17 1854 74.1 kg (163 lb 6.4 oz) General: No acute distress Respiratory: bilateral breath sound present. No wheeze, no crackles. Cardiovascular: S1 S2 heard Abdomen: soft , BS present. Musculoskeletal: no edema Neuro: awake, moving extremities grossly Alvaro Myles MD - 09/05/2017 9:15 AM CDTFormatting of this note may be different from the original. NEPHROLOGY DAILY PROGRESS NOTE Name: Hollis Barrera Assessment/Plan: 1. Status post living related kidney donor transplantation, 2001. 2. Chronic kidney disease stage 3 with a baseline creatinine of 1.8 to 1.6. 3. NSTEMI s/p RCA stent placement 4. Immunosuppression. 5. Anemia with myelodysplastic syndrome. 6. History of mesenteric thrombosis, on anticoagulation. Plan: IVF has been discontinued I would recommend liberal intake of fluid per oral Serum creatinine is at baseline but it takes 24-36 hrs for the creatinine rise sec to contrast induced nephropathy. Subjective: --Patient seen this am. --Events noted. Objective: Vitals: Current Vital Signs Temp: 99.4 F (37.4 C) BP: 139/78 Pulse: 98 O2 Device: Room Air Resp: 17 Pain Ratin (out of 10) Weight: 74.1 kg (163 lb 6.4 oz) SpO2: 95 % Vitals Min/Max Last 24 Hours Vital Signs Min/Max (last 24 hours) Flowsheet Row Name Min Max Temp 98.9 F (37.2 C) 101.7 F (38.7 C) BP: Systolic 129 182 BP: Diastolic 59 82 Pulse 76 98 Resp 16 17 SpO2 92 % 99 % MAP (mm Hg) 81 mm Hg 107 mm Hg Intake and Output Last 24 Hours Intake/Output Summary (Last 24 hours) at 09/06/17 0916 Last data filed at 09/06/17 0649 Gross per 24 hour Intake 240 ml Output 0 ml Net 240 ml Physical Exam: General Appearance: alert, well appearing, and in no distress Chest: Clear to auscultate bilaterally Heart: normal rate, regular rhythm, normal S1, S2, no murmurs, rubs, clicks or gallops Abdomen: soft, nontender, nondistended, BS + Extremities: no pedal edema noted Diagnostics and Labs: Labs (Last day) 09/06/17 0756 - 09/06/17 0756 CBC 09/06/17 0756 CBC WBC 4.0-11.0 (K/uL) 5.6 RBC 4.40-5.80 (M/uL) 2.85 Hemoglobin 13.5-17.5 (g/dL) 8.6 Hematocrit 40.0-50.0 (%) 24.9 MCV 80.0-98.0 (fL) 87.4 MCH 25.5-34.0 (pg) 30.2 MCHC 31.5-36.5 (g/dL) 34.5 RDW-CV 11.5-15.5 (%) 15.0 RDW-SD 35.5-50.0 (fl) 46.2 Platelet Count 140-400 (K/uL) 297 MPV 8.5-12.0 (fL) 10.8 09/06/17755 - 09/06/17755 CHEMISTRY 09/06/1775509/06/17755 CHEMISTRY Glucose 70-100 (mg/dL) 152 Sodium 135-145 (meq/L) 134 Potassium 3.5-5.3 (meq/L) 4.3 Chloride 99-110 (meq/L) 100 CO2 20-29 (meq/L) 23 Anion Gap with K 6-20 (meq/L) 15 BUN 6-22 (mg/dL) 26 Creatinine 0.80-1.30 (mg/dL) 1.60 BUN/Creatinine Ratio 10.0-25.0 16.3 Calcium 8.5-10.5 (mg/dL) 9.1 Bilirubin Total 0.2-1.2 (mg/dL) 1.0 Bilirubin Direct 0.0-0.4 (mg/dL) 0.5 Bilirubin Indirect 0.0-0.8 (mg/dL) 0.5 Alkaline Phosphatase 30-150 (U/L) 142 ALT - SGPT 0-55 (U/L) 126 AST - SGOT 0-35 (U/L) 35 Protein Total 6.0-8.2 (g/dL) 6.5 Albumin 3.5-5.0 (g/dL) 3.3 eGFR >=60 (mL/min/1.73m2) 54 eGFR Non- >=60 (mL/min/1.73m2) 45 09/06/17755 - 09/06/17755 DIFFERENTIAL 09/06/17755 DIFFERENTIAL Seg Neut Absolute 1.8-8.0 (K/uL) 4.0 Lymphocytes Absolute 0.8-4.1 (K/uL) 0.9 Monocytes Absolute 0.0-1.0 (K/uL) 0.6 Eosinophils Absolute 0.0-0.7 (K/uL) 0.1 Basophil Absolute 0.0-0.2 (K/uL) 0.0 Immature Granulocyte Absolute 0.00-0.06 (K/uL) 0.05 Neutrophils Abs. (Segs and Bands) (/uL) 4000 Neutrophils Percent (%) 71.2 Lymphocytes Percent (%) 15.3 Monocytes Percent (%) 11.2 Immature Granulocyte Percent (%) 0.9 Eosinophils Percent (%) 1.8 Basophil Percent (%) 0.5 09/05/17 1330 - 09/05/17 1107 ECG/EKG 09/05/17 1330 09/05/17 1107 ECG/EKG EKG WAVEFORM Normal sinus rhythm: Possible Left atrial enlargement: T wave abnormality, consider inferior ischemia: Abnormal ECG: When compared with ECG of 05-SEP-2017 11:07,: No significant change was found Ventricular Rate: 82 BPM Atrial Rate: 82 BPM P-R Interval: 148 ms QRS Duration: 74 ms Q-T Interval: 362 ms QTC Calculation(Bazett): 422 ms Calculated P [place]: 21 degrees Calculated R [place]: -3 degrees Calculated T [place]: -23 degrees WAVEFORM Normal sinus rhythm: T wave abnormality, consider inferior ischemia: Abnormal ECG: When compared with ECG of 04-SEP-2017 11:24,: No significant change was found Ventricular Rate: 68 BPM Atrial Rate: 68 BPM P-R Interval: 150 ms QRS Duration: 86 ms Q-T Interval: 388 ms QTC Calculation(Bazett): 412 ms Calculated P [place]: 24 degrees Calculated R [place]: 10 degrees Calculated T [place]: -5 degrees 09/06/17 0756 - 09/05/17 1010 GENERAL COAGULATION 09/06/17 0756 09/05/17 1010 GENERAL COAGULATION Protime 12.0-14.5 (secs) 22.8 INR 2.0-3.5 1.9 Activated Clotting Time 100-150 (Secs) 257 09/06/17 0642 - 09/05/17 1051 GLUCOSE POINT OF CARE 09/06/17 0642 09/05/17 2130 09/05/17 1656 09/05/17 1051 GLUCOSE POINT OF CARE Glucose POC 70-100 (mg/dL) 149 245 255 154 09/06/17 0756 - 09/06/17 0756 OTHER 09/06/17 0756 OTHER Age (Years) 56 Lab Results Component Value Date PTHINTACT 5 (L) 10/19/2015 CA 9.1 09/06/2017 ICA 1.17 07/15/2016 PHOSPHORUS 4.4 09/04/2017 Last Vitamin D: No results found for: [id number] Last Iron: Lab Results Component Value Date FETOT 192 (H) 05/21/2017 FERRITINSER 7205 (H) 05/21/2017 TIBC 207 (L) 05/21/2017 FESAT 93 (H) 05/21/2017 Current Facility-Administered Medications Medication Dose Route Frequency Provider Last Rate Last Dose warfarin (COUMADIN) tablet 1.5 mg 1.5 mg Oral Warfarin 1 time dose Jamshid Elaine MD sodium chloride 0.9% IV solution IV Continuous Alvaro Myles MD nitroglycerin (NITROSTAT) sublingual tablet 0.4 mg 0.4 mg Sublingual Every 5 minutes prn Franky Su DO aspirin chewable tablet 81 mg 81 mg Oral Daily Franky Su DO ticagrelor (BRILINTA) tablet 90 mg 90 mg Oral 2 times a day Franky Su DO 90 mg at 09/05/172158 ALPRAZolam (XANAX) tablet 0.25 mg 0.25 mg Oral Every 12 hours prn Reinaldo Kaur MD calcitriol (ROCALTROL) capsule 0.5 mcg 0.5 mcg Oral 3 times a day Reinaldo Kaur MD 0.5 mcg at 09/05/172158 fluconazole (DIFLUCAN) tablet 200 mg 200 mg Oral daily Reinaldo Kaur MD 200 mg at 09/05/17 0847 isosorbide mononitrate (IMDUR) SR tablet (24 hr) 30 mg 30 mg Oral daily Reinaldo Kaur MD30 mg at 09/05/17 0847 Phytonadione (vitamin K) tablet 100 mcg 100 mcg Oral Daily Reinaldo Kaur MD 100 mcg at 09/05/17 0850 predniSONE tablet 10 mg 10 mg Oral daily Reinaldo Kaur MD 10 mg at 09/05/17 0850 sodium bicarbonate tablet 650 mg 650 mg Oral 2 times a day Reinaldo Kaur MD 650 mg at 09/05/172158 tacrolimus (PROGRAF) capsule 1 mg 1 mg Oral Every 12 hours with food Reinaldo Kaur MD 1 mg at 09/05/172158 vitamin D3 (cholecalciferol) tablet 1,000 Units 1,000 Units Oral daily Reinaldo Kaur MD 1,000 Units at 09/05/17 0848 sodium chloride 0.9% prefilled 10 mL syringe (Materials Management Item) 10 mL 10 mL IV 2 timesa day and prn Reinaldo Kaur MD 10 mL at 09/05/17 2159 acetaminophen (TYLENOL) tablet 650 mg 650 mg Oral Every 4 hours prn Reinaldo Kaur MD 650mg at 09/06/17 0041 traMADol (ULTRAM) tablet 50 mg 50 mg Oral Every 6 hours prn Reinaldo Kaur MD 50 mg at 09/04/17 1136 melatonin tablet 3 mg 3 mg Oral Bedtime prn Reinaldo Kaur MD insulin glargine (LANTUS) SQ injection 8 Units Subcutaneous at bedtime Reinaldo Kaur MD 8 Units at 09/05/17 2159 dextrose 50% IV solution 50 mL 25 g IV PRN per parameter Reinaldo Kaur MD glucagon for injection 1 mg vial 1 mg 1 mg Intramuscular PRN per parameter Reinaldo Kaur MD dextrose chewable tablet 16 g 4 tablet Oral PRN per parameter Reinaldo Kaur MD Or carbohydrate 15 g 15 g Oral PRN per parameter Reinaldo Kaur MD insulin aspart (NovoLOG) SQ correction scale (Adult) 2-8 Units Subcutaneous 3 times a day with meals Reinaldo Kaur MD 2 Units at 1239 .Anticoagulation (WARFARIN) therapy nursing reminder 1 each Does not apply Reminder Reinaldo Kaur MD Carey, Jantey, MD - 09/04/2017 11:28 PM CDTFormatting of this note may be different from the original. Internal Medicine Progress note: Exam date: 09/04/2017 Hospital day # 0 Impression and Plan: #NSTEMI. Cardiology on the case Plans for Cardiac cath Continue ASA, IMDUR #H/O CKD and renal transplant. Continue Prograf. Prednisone. Nephrology consult # MDS with severe anemia . Hematology consult # Type 2 DM. Continue with Lantus and ISS # Mesenteric artery thrombosis. 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 Cardiovascular: No chest pain Abdomen: No abdominal pain Examination: Vitals: 09/04/17 1122 09/04/17 1528 09/04/17 1942 09/04/17 2309 BP: 121/79 129/78 106/69 122/70 Pulse: 71 65 78 73 Resp: 16 16 16 16 Temp: 98.2 F (36.8 C) 97.2 F (36.2 C) 97.5 F (36.4 C) SpO2: 93% 94% 99% 95% Weight: Height: Temp (24hrs), Av F (36.7 C), Min:97.2 F (36.2 C), Max:98.2 F ( 36.8 C) Systolic (24hrs), Av , Min:103 , Max:143 Intake/Output Summary (Last 24 hours) at 09/04/17 2328 Last data filed at 09/04/17 0922 Gross per 24 hour Intake 0 ml Output 900 ml Net -900 ml Patient Vitals for the past 72 hrs: Weight 09/03/17 1854 74.1 kg (163 lb 6.4 oz) General: No acute distress Respiratory: bilateral breath sound present. No wheeze, no crackles. Cardiovascular: S1 S2 heard Abdomen: soft , BS present. Musculoskeletal: no edema Neuro: awake, moving extremities grossly Bijan Valdez RPh - 09/03/2017 6:19 PM CDTFormatting of this note may be different from the original. 09/03/2017 18:19 - Patient was seen by pharmacy on the [facility] unit. HOME MEDICATIONS have been reconciled and updated to match the patient's home usage. Patient was told to stop taking his Imdur on Saturday and start using Alprazolam PRN for chest pain. His last Imdur dose was Saturday. Bijan Valdez RPh Prior to Admission Medications Prescriptions Last Dose Informant Patient Reported? Taking? ALPRAZolam (XANAX) 0.25 mg tablet 09/03/2017 at 1100 Self No Yes Sig: Take 1 tablet (0.25 mg) by mouth Every 12 hours as needed for anxiety Phytonadione, vitamin K, 100 MCG TABS tablet 09/03/2017 at 1300 Self No Yes Sig: Take 1 tablet (100 micrograms) by mouth once daily while on warfarin to stabilize labile INRs and dietary vitamin K consumption. Patient taking differently: Take 100 mcg by mouth 1 time per day Take 1 tablet ( 100 micrograms) by mouth once daily while on warfarin to stabilize labile INRs and dietary vitamin K consumption. acetaminophen (TYLENOL) 325 mg tablet Past Week at Unknown time Self Yes Yes Sig: Take 1-2 tablets by mouth Every 4 hours as needed for mild pain, fever &gt ; (indicate temp) or headache calcitriol (ROCALTROL) 0.25 mcg capsule 09/03/2017 at 1300 Self No Yes Sig: Take 2 capsules (0.5 mcg) by mouth 3 times a day fluconazole (DIFLUCAN) 200 mg tablet 09/03/2017 at AM Self No Yes Sig: Take 1 tablet (200 mg) by mouth 1 time per day isosorbide mononitrate (IMDUR) 30 mg SR tablet (24 hr) 09/01/2017 at AM Self Yes Yes Sig: Take 1 tablet by mouth 1 time per day magnesium gluconate (MAGONATE) 500 mg tablet 09/03/2017 at 1300 Self Yes Yes Sig: Take 500 mg by mouth 3 times a day omeprazole (PRILOSEC) 20 mg capsule 09/03/2017 at AM Self Yes Yes Sig: Take 20 mg by mouth 1 time a day in the morning predniSONE 5 mg tablet 09/03/2017 at 0900 Self No Yes Sig: Take 2 tablets (10 mg) by mouth 1 time per day sodium bicarbonate 650 MG tablet 09/03/2017 at 0900 Self No Yes Sig: Take 1 tablet (650 mg) by mouth 2 times a day tacrolimus (PROGRAF) 0.5 mg capsule 09/03/2017 at 0900 Self No Yes Sig: TAKE TWO CAPSULES BY MOUTH EVERY MORNING AND TAKE TWO CAPSULES BY MOUTH EACH EVENING (TAKE 12 HOURS APART) vitamin D3, cholecalciferol, 1000 unit tablet 09/03/2017 at AM Self Yes Yes Sig: Take 1 tablet (1,000 Units) by mouth 1 time per day warfarin (COUMADIN) 3 MG tablet 09/03/2017 at 1300 Self No Yes Sig: [facility] Anticoagulation Pt:Take as directed. (Insurance Purposes: 1.5 -3 mg daily dose range) Call [phone] if ? Facility-Administered Medications: None in this encounter Plan of Treatment Date Type Specialty Care Team Description 09/09/2017 Office Visit Nephrology ChemitiTello MD [address] [place] [address], [place] [address] [phone] 02/17/2018 Office Visit Infectious Diseases Eusebia Mathews MD [address] [place] [address] [phone] Name Priority Associated Diagnoses Order Schedule TACROLIMUS Timed Routine Lab use only until discontinued starting 09/06/2017, 1 completed RENAL FUNCTION PANEL Routine Once for 1 Occurrences starting 09/09/2017 until 09/09/2017 PROTIME/INR Routine Early AM draw for labs until discontinued starting 09/09/2017 Name Priority Associated Diagnoses Order Schedule HOSPITAL DISCHARGE WARFARIN Routine Once for 1 Occurrences ANTICOAG ORDER starting 09/08/2017 until 09/08/2017 Health Maintenance Due Date Last Done Comments Hepatitis C Screening 1960 Diabetic Foot Exam 11/04/1969 Ophthalmology Exam 11/04/1969 HIV One Time Screening Ages 11/04/1974 15-65 Microalbumin 09/03/2017 09/03/2016 Zoster Vaccine (1 of 2 - 10/10/2017 Postponed from [facility], Shingrix) 11/04/2009 (Patient Refused) Hemoglobin A1C Every 6 03/05/2018 09/03/2017, 08/08/2017, Months 07/25/2016, Additional history exists Pneumococcal 19-64yr 03/18/2018 10/23/2016, 07/01/2009 Postponed from Highest Risk(Category 3) (3 12/18/2016 (Patient of 3 - PPSV23) Refused) Lipid Screening 09/06/2018 09/06/2017, 05/01/2017, 12/07/2016, Additional history exists Tetanus Vaccine 07/01/2019 07/01/2009 Colorectal Cancer Screening 12/08/2025 12/09/2015, 12/09/2015, 12/09/2015, Additional history exists Influenza Vaccine Completed 01/25/2017, 04/18/2016, 03/04/2015, Additional history exists as of this encounter Procedures Procedure Name Priority Date/Time Associated Comments Diagnosis PROTIME/INR Routine 09/08/2017 7:25 Results for this AM CDT procedure are in the results section. GLUCOSE BY METER, Routine 09/08/2017 6:36 Results for this POCT AM CDT procedure are in the results section. GLUCOSE BY METER, Routine 09/07/2017 9:09 Results for this POCT PM CDT procedure are in the results section. GLUCOSE BY METER, Routine 09/07/2017 5:20 Results for this POCT PM CDT procedure are in the results section. BASIC METABOLIC PANEL STAT 09/07/2017 9:48 Results for this AM CDT procedure are in the results section. PROTIME/INR Routine 09/07/2017 7:40 Results for this AM CDT procedure are in the results section. GLUCOSE BY METER, Routine 09/07/2017 6:39 Results for this POCT AM CDT procedure are in the results section. GLUCOSE BY METER, Routine 09/06/2017 8:49 Results for this POCT PM CDT procedure are in the results section. GLUCOSE BY METER, Routine 09/06/2017 5:27 Results for this POCT PM CDT procedure are in the results section. GLUCOSE BY METER, Routine 09/06/2017 12:18 Results for this POCT PM CDT procedure are in the results section. LAB ONLY-COMPLETE Routine 09/06/2017 7:56 Results for this BLOOD COUNT WITH AM CDT procedure are in DIFFERENTIAL the results section. LIPID PANEL Routine 09/06/2017 7:56 Results for this AM CDT procedure are in the results section. TACROLIMUS Timed Routine 09/06/2017 7:56 Results for this AM CDT procedure are in the results section. PROTIME/INR Routine 09/06/2017 7:56 Results for this AM CDT procedure are in the results section. HEPATIC FUNCTION Routine 09/06/2017 7:56 Results for this PANEL AM CDT procedure are in the results section. BASIC METABOLIC PANEL Routine 09/06/2017 7:56 Results for this AM CDT procedure are in the results section. COMPLETE BLOOD COUNT Routine 09/06/2017 7:56 Results for this WITH DIFFERENTIAL AM CDT procedure are in the results section. GLUCOSE BY METER, Routine 09/06/2017 6:42 Results for this POCT AM CDT procedure are in the results section. GLUCOSE BY METER, Routine 09/05/2017 9:30 Results for this POCT PM CDT procedure are in the results section. GLUCOSE BY METER, Routine 09/05/2017 4:56 Results for this POCT PM CDT procedure are in the results section. GLUCOSE BY METER, Routine 09/05/2017 10:51 Results for this POCT AM CDT procedure are in the results section. ACTIVATED CLOTTING Routine 09/05/2017 10:10 Results for this TIME POCT AM CDT procedure are in the results section. GLUCOSE BY METER, Routine 09/05/2017 7:54 Results for this POCT AM CDT procedure are in the results section. PROTIME/INR Routine 09/05/2017 5:20 Results for this AM CDT procedure are in the results section. GLUCOSE BY METER, Routine 09/04/2017 10:32 Results for this POCT PM CDT procedure are in the results section. GLUCOSE BY METER, Routine 09/04/2017 5:01 Results for this POCT PM CDT procedure are in the results section. GLUCOSE BY METER, Routine 09/04/2017 11:17 Results for this POCT AM CDT procedure are in the results section. COLLECT AND HOLD SST Routine 09/04/2017 7:30 Results for this TOP TUBE AM CDT procedure are in the results section. COLLECT AND HOLD BLUE Routine 09/04/2017 7:30 Results for this (NACIT) TOP TUBE AM CDT procedure are in the results section. COLLECT AND HOLD Routine 09/04/2017 7:30 Results for this LAVENDER (EDTA) TOP AM CDT procedure are in TUBE the results section. TROPONIN I STAT 09/04/2017 7:30 Results for this AM CDT procedure are in the results section. HEPATIC FUNCTION STAT 09/04/2017 7:30 Results for this PANEL AM CDT procedure are in the results section. LIPASE STAT 09/04/2017 7:30 Results for this AM CDT procedure are in the results section. GLUCOSE BY METER, Routine 09/04/2017 6:27 Results for this POCT AM CDT procedure are in the results section. PROTIME/INR Routine 09/04/2017 4:57 Results for this AM CDT procedure are in the results section. COMPLETE BLOOD COUNT Routine 09/04/2017 4:57 Results for this WITHOUT DIFFERENTIAL AM CDT procedure are in the results section. RENAL FUNCTION PANEL Routine 09/04/2017 4:57 Results for this AM CDT procedure are in the results section. PREPARE AND HOLD RED STAT 09/04/2017 12:26 Results for this BLOOD CELLS - BLOOD AM CDT procedure are in BANK the results section. GLUCOSE BY METER, Routine 09/03/2017 9:47 Results for this POCT PM CDT procedure are in the results section. GLYCATED HEMOGLOBIN Routine 09/03/2017 7:20 Results for this PM CDT procedure are in the results section. TYPE AND SCREEN STAT 09/03/2017 5:43 Results for this PM CDT procedure are in the results section. LAB ONLY-COMPLETE STAT 09/03/2017 5:16 Results for this BLOOD COUNT WITH PM CDT procedure are in DIFFERENTIAL the results section. PROTIME/INR STAT 09/03/2017 5:16 Results for this PM CDT procedure are in the results section. TROPONIN I STAT 09/03/2017 5:16 Results for this PM CDT procedure are in the results section. COMPREHENSIVE STAT 09/03/2017 5:16 Results for this METABOLIC PANEL PM CDT procedure are in the results section. COMPLETE BLOOD COUNT STAT 09/03/2017 5:16 Results for this WITH DIFFERENTIAL PM CDT procedure are in the results section. BRAIN NATRIURETIC STAT 09/03/2017 5:16 Results for this PEPTIDE PM CDT procedure are in the results section. in this encounter Results PROTIME/INR (09/08/2017 7:25 AM) Component Value Ref Range Protime 22.1 (H) 12.0 - 14.5 secs INR 1.9 (L) 2.0 - 3.5 Specimen Performing Laboratory Blood [place] [facility] [place] [address] Narrative Normal INR reference range (patients not on oral anticoagulants)0.9-1.1. INR Standard Intensity=(2.0 - 3.0) INR Higher Intensity=(2.5 - 3.5) GLUCOSE BY METER, POCT (09/08/2017 6:36 AM) Component Value Ref Range Glucose POC 164 (H) 70 - 100 mg/dL Specimen Performing Laboratory Blood [facility] POINT OF CARE TEST[facility] [address] [place] [address] GLUCOSE BY METER, POCT (09/07/2017 9:09 PM) Component Value Ref Range Glucose POC 235 (H) 70 - 100 mg/dL Specimen Performing Laboratory Blood [facility] POINT [facility]ARE TEST[facility] [address] [place] [address], [place] [address] GLUCOSE BY METER, POCT (09/07/2017 5:20 PM) Component Value Ref Range Glucose POC 267 (H) 70 - 100 mg/dL Specimen Performing Laboratory Blood [facility] [address] [place] [address], [place] [address] BASIC METABOLIC PANEL (09/07/2017 9:48 AM) Component Value Ref Range Glucose 166 (H) 70 - 100 mg/dL BUN 23 (H) 6 - 22 mg/dL Creatinine 1.51 (H) 0.80 - 1.30 mg/dL BUN/Creatinine Ratio 15.2 10.0 - 25.0 Sodium 132 (L) 135 - 145 meq/L Potassium 4.1 3.5 - 5.3 meq/L Chloride 100 99 - 110 meq/L CO2 26 20 - 29 meq/L Anion Gap with K 10 6 - 20 meq/L Calcium 8.8 8.5 - 10.5 mg/dL Age 56 Years eGFR Non- 48 (L) >=60 mL/min/1.73m2 eGFR 58 (L) >=60 mL/min/1.73m2 Specimen Performing Laboratory Blood [facility] [address] [facility] [address] [place] [address] PROTIME/INR (09/07/2017 7:40 AM) Component Value Ref Range Protime 20.8 (H) 12.0 - 14.5 secs INR 1.7 (L) 2.0 - 3.5 Specimen Performing Laboratory Blood [facility] [address] [facility] [address] [place] [address] Narrative Normal INR reference range (patients not on oral anticoagulants)0.9-1.1. INR Standard Intensity=(2.0 - 3.0) INR Higher Intensity=(2.5 - 3.5) GLUCOSE BY METER, POCT (09/07/2017 6:39 AM) Component Value Ref Range Glucose POC 156 (H) 70 - 100 mg/dL Specimen Performing Laboratory Blood [facility] [address] [place] [address] GLUCOSE BY METER, POCT (09/06/2017 8:49 PM) Component Value Ref Range Glucose POC 258 (H) 70 - 100 mg/dL Specimen Performing Laboratory Blood [facility] [address] [place] [address] GLUCOSE BY METER, POCT (09/06/2017 5:27 PM) Component Value Ref Range Glucose POC 272 (H) 70 - 100 mg/dL Specimen Performing Laboratory Blood [facility] [address] [place] [address] GLUCOSE BY METER, POCT (09/06/2017 12:18 PM) Component Value Ref Range Glucose POC 155 (H) 70 - 100 mg/dL Specimen Performing Laboratory Blood [facility] [address] [place] [address] LAB ONLY-COMPLETE BLOOD COUNT WITH DIFFERENTIAL (09/06/2017 7:56 AM) Component Value Ref Range WBC 5.6 4.0 - 11.0 K/uL RBC 2.85 (L) 4.40 - 5.80 M/uL Hemoglobin 8.6 (L) 13.5 - 17.5 g/dL Hematocrit 24.9 (L) 40.0 - 50.0 % MCV 87.4 80.0 - 98.0 fL MCH 30.2 25.5 - 34.0 pg MCHC 34.5 31.5 - 36.5 g/dL RDW-CV 15.0 11.5 - 15.5 % RDW-SD 46.2 35.5 - 50.0 fl Platelet Count 297 140 - 400 K/uL MPV 10.8 8.5 - 12.0 fL Seg Neut Absolute 4.0 1.8 - 8.0 K/uL Lymphocytes Absolute 0.9 0.8 - 4.1 K/uL Monocytes Absolute 0.6 0.0 - 1.0 K/uL Eosinophils Absolute 0.1 0.0 - 0.7 K/uL Basophil Absolute 0.0 0.0 - 0.2 K/uL Immature Granulocyte Absolute 0.05 0.00 - 0.06 K/uL Neutrophils Abs. (Segs and Bands) 4000 /uL Neutrophils Percent 71.2 % Lymphocytes Percent 15.3 % Monocytes Percent 11.2 % Immature Granulocyte Percent 0.9 % Eosinophils Percent 1.8 % Basophil Percent 0.5 % Specimen Performing Laboratory Blood [facility] [facility] [address] [place] [address] PROTIME/INR (09/06/2017 7:56 AM) Component Value Ref Range Protime 22.8 (H) 12.0 - 14.5 secs INR 1.9 (L) 2.0 - 3.5 Specimen Performing Laboratory Blood [facility] [address] [place] [address] Narrative Normal INR reference range (patients not on oral anticoagulants)0.9-1.1. INR Standard Intensity=(2.0 - 3.0) INR Higher Intensity=(2.5 - 3.5) TACROLIMUS (09/06/2017 7:56 AM) Component Value Ref Range Tacrolimus 6.4 5.0 - 20.0 ng/mL Specimen Performing Laboratory Blood [address] [address] Narrative This assay performed using an Kovacs immunoassay method on the [employer] Cylinder Block Hole Reliner instrument. LIPID PANEL (09/06/2017 7:56 AM) Component Value Ref Range Cholesterol 79 (L) 100 - 200 mg/dL Triglyceride 120 50 - 150 mg/dL HDL 31 (L) 40 - 80 mg/dL LDL 24 0 - 129 mg/dL Specimen Performing Laboratory Blood [address] [address] HEPATIC FUNCTION PANEL (09/06/2017 7:56 AM) Component Value Ref Range Alkaline Phosphatase 142 30 - 150 U/L AST - SGOT 35 0 - 35 U/L ALT - SGPT 126 (H) 0 - 55 U/L Bilirubin Total 1.0 0.2 - 1.2 mg/dL Bilirubin Indirect 0.5 0.0 - 0.8 mg/dL Bilirubin Direct 0.5 (H) 0.0 - 0.4 mg/dL Albumin 3.3 (L) 3.5 - 5.0 g/dL Protein Total 6.5 6.0 - 8.2 g/dL Specimen Performing Laboratory Blood [address] [address] BASIC METABOLIC PANEL (09/06/2017 7:56 AM) Component Value Ref Range Glucose 152 (H) 70 - 100 mg/dL BUN 26 (H) 6 - 22 mg/dL Creatinine 1.60 (H) 0.80 - 1.30 mg/dL BUN/Creatinine Ratio 16.3 10.0 - 25.0 Sodium 134 (L) 135 - 145 meq/L Potassium 4.3 3.5 - 5.3 meq/L Chloride 100 99 - 110 meq/L CO2 23 20 - 29 meq/L Anion Gap with K 15 6 - 20 meq/L Calcium 9.1 8.5 - 10.5 mg/dL Age 56 Years eGFR Non- 45 (L) >=60 mL/min/1.73m2 eGFR 54 (L) >=60 mL/min/1.73m2 Specimen Performing Laboratory Blood [address] [address] COMPLETE BLOOD COUNT WITH DIFFERENTIAL (09/06/2017 7:56 AM) Specimen Performing Laboratory Blood Narrative The following orders were created for panel order COMPLETE BLOOD COUNT WITH DIFFERENTIAL. Procedure Abnormality Status --------- ------ LAB ONLY-COMPLETE BLOOD ...[[id number]]AbnormalFinal result Please view results for these tests on the individual orders. GLUCOSE BY METER, POCT (09/06/2017 6:42 AM) Component Value Ref Range Glucose POC 149 (H) 70 - 100 mg/dL Specimen Performing Laboratory Blood [facility] [address] [place] [address] GLUCOSE BY METER, POCT (09/05/2017 9:30 PM) Component Value Ref Range Glucose POC 245 (H) 70 - 100 mg/dL Specimen Performing Laboratory Blood [facility] [address] [place] [address] GLUCOSE BY METER, POCT (09/05/2017 4:56 PM) Component Value Ref Range Glucose POC 255 (H) 70 - 100 mg/dL Specimen Performing Laboratory Blood [facility] [address] [place] [address] EKG 12 LEAD TO BE DONE 3 HOURS POST CORONARY INTERVENTION (09/05/2017 1:30 PM) Only the most recent of5 resultswithin the time period is included. Component Value Ref Range EKG WAVEFORM Normal sinus rhythm: Possible Left atrial enlargement: T wave abnormality, consider inferior ischemia: Abnormal ECG: When compared with ECG of 05-SEP-2017 11:07,: No significant change was found Ventricular Rate: 82 BPM Atrial Rate: 82 BPM P-R Interval: 148 ms QRS Duration: 74 ms Q-T Interval: 362 ms QTC Calculation(Bazett): 422 ms Calculated P [place]: 21 degrees Calculated R [place]: -3 degrees Calculated T [place]: -23 degrees GLUCOSE BY METER, POCT (09/05/2017 10:51 AM) Component Value Ref Range Glucose POC 154 (H) 70 - 100 mg/dL Specimen Performing Laboratory Blood [facility] [address] [place] [address] ACTIVATED CLOTTING TIME POCT (09/05/2017 10:10 AM) Component Value Ref Range Activated Clotting Time 257 (H) 100 - 150 Secs Specimen Performing Laboratory Blood [facility] [address] [place] [address] GLUCOSE BY METER, POCT (09/05/2017 7:54 AM) Component Value Ref Range Glucose POC 122 (H) 70 - 100 mg/dL Specimen Performing Laboratory Blood [facility] [address] [place] [address] PROTIME/INR (09/05/2017 5:20 AM) Component Value Ref Range Protime 24.1 (H) 12.0 - 14.5 secs INR 2.2 2.0 - 3.5 Specimen Performing Laboratory Blood [facility] [address] [facility] [address] [place] [address] Narrative Normal INR reference range (patients not on oral anticoagulants)0.9-1.1. INR Standard Intensity=(2.0 - 3.0) INR Higher Intensity=(2.5 - 3.5) GLUCOSE BY METER, POCT (09/04/2017 10:32 PM) Component Value Ref Range Glucose POC 189 (H) 70 - 100 mg/dL Specimen Performing Laboratory Blood [facility] [address] [place] [address] GLUCOSE BY METER, POCT (09/04/2017 5:01 PM) Component Value Ref Range Glucose POC 177 (H) 70 - 100 mg/dL Specimen Performing Laboratory Blood [facility] [address] [place] [address] GLUCOSE BY METER, POCT (09/04/2017 11:17 AM) Component Value Ref Range Glucose POC 182 (H) 70 - 100 mg/dL Specimen Performing Laboratory Blood [facility] [address] [place] [address] COLLECT AND HOLD LAVENDER (EDTA) TOP TUBE (09/04/2017 7:30 AM) Component Value Ref Range Collect and Hold Specimen Status Comment: RECEIVED Specimen Performing Laboratory Blood [facility] [facility] [address] [place] [address] COLLECT AND HOLD SST TOP TUBE (09/04/2017 7:30 AM) Component Value Ref Range Collect and Hold Specimen Status Comment: RECEIVED Specimen Performing Laboratory Blood [facility] [facility] [address] [place] [address] COLLECT AND HOLD BLUE (NACIT) TOP TUBE (09/04/2017 7:30 AM) Component Value Ref Range Collect and Hold Specimen Status Comment: RECEIVED Specimen Performing Laboratory Blood [facility] [facility] [address] [place] [address] HEPATIC FUNCTION PANEL (09/04/2017 7:30 AM) Component Value Ref Range Alkaline Phosphatase 148 30 - 150 U/L AST - SGOT 62 (H) 0 - 35 U/L ALT - SGPT 160 (H) 0 - 55 U/L Bilirubin Total 0.7 0.2 - 1.2 mg/dL Bilirubin Indirect 0.4 0.0 - 0.8 mg/dL Bilirubin Direct 0.3 0.0 - 0.4 mg/dL Albumin 3.5 3.5 - 5.0 g/dL Protein Total 6.9 6.0 - 8.2 g/dL Specimen Performing Laboratory Blood [facility] [facility] [address] [place] [address] LIPASE (09/04/2017 7:30 AM) Component Value Ref Range Lipase 25 5 - 80 U/L Specimen Performing Laboratory Blood [facility] [address] [facility] [address] [place] [address] TROPONIN I (09/04/2017 7:30 AM) Component Value Ref Range Troponin I 0.190 (H) 0.000 - 0.028 ng/mL Specimen Performing Laboratory Blood [address] [address] GLUCOSE BY METER, POCT (09/04/2017 6:27 AM) Component Value Ref Range Glucose POC 154 (H) 70 - 100 mg/dL Specimen Performing Laboratory Blood [facility] [address] [place] [address] PROTIME/INR (09/04/2017 4:57 AM) Component Value Ref Range Protime 25.6 (H) 12.0 - 14.5 secs INR 2.4 2.0 - 3.5 Specimen Performing Laboratory Blood [address] [address] Narrative Normal INR reference range (patients not on oral anticoagulants)0.9-1.1. INR Standard Intensity=(2.0 - 3.0) INR Higher Intensity=(2.5 - 3.5) COMPLETE BLOOD COUNT WITHOUT DIFFERENTIAL (09/04/2017 4:57 AM) Component Value Ref Range WBC 4.4 4.0 - 11.0 K/uL RBC 2.81 (L) 4.40 - 5.80 M/uL Hemoglobin 8.8 (L) 13.5 - 17.5 g/dL Hematocrit 24.4 (L) 40.0 - 50.0 % MCV 86.8 80.0 - 98.0 fL MCH 31.3 25.5 - 34.0 pg MCHC 36.1 31.5 - 36.5 g/dL RDW-CV 14.7 11.5 - 15.5 % RDW-SD 45.7 35.5 - 50.0 fl Platelet Count 275 140 - 400 K/uL MPV 11.5 8.5 - 12.0 fL Specimen Performing Laboratory Blood [address] [address] RENAL FUNCTION PANEL (09/04/2017 4:57 AM) Component Value Ref Range Glucose 155 (H) 70 - 100 mg/dL BUN 24 (H) 6 - 22 mg/dL Creatinine 1.31 (H) 0.80 - 1.30 mg/dL BUN/Creatinine Ratio 18.3 10.0 - 25.0 Sodium 138 135 - 145 meq/L Potassium 4.2 3.5 - 5.3 meq/L Chloride 102 99 - 110 meq/L CO2 27 20 - 29 meq/L Anion Gap with K 13 6 - 20 meq/L Calcium 8.8 8.5 - 10.5 mg/dL Phosphorus 4.4 2.5 - 4.5 mg/dL Albumin 3.4 (L) 3.5 - 5.0 g/dL Corrected Calcium 9.3 8.5 - 10.5 mg/dL Age 56 Years eGFR Non- 56 (L) >=60 mL/min/1.73m2 eGFR 68 >=60 mL/min/1.73m2 Specimen Performing Laboratory Blood [address] [address] PREPARE AND HOLD RED BLOOD CELLS - BLOOD BANK (09/04/2017 12:26 AM) Component Value Ref Range BPAM Product Code [id number] BPAM Unit Number [id number] Unit ABO Type O Unit Rh Type POS BPAM Dispense Status TR BPAM Blood Expiration Date [facility] Coding System 5100 Product Code RBC, Leukoreduced [id number] Unit ID [id number] Product Status Transfused Specimen Performing Laboratory LAB GLUCOSE BY METER, POCT (09/03/2017 9:47 PM) Component Value Ref Range Glucose POC 237 (H) 70 - 100 mg/dL Specimen Performing Laboratory Blood [facility] [address] [place] [address], [place] [address] GLYCATED HEMOGLOBIN (09/03/2017 7:20 PM) Component Value Ref Range Hgb A1C 8.6 (H) 4.2 - 6.0 % Specimen Performing Laboratory Blood [facility] [address] [place] [address] TYPE AND SCREEN (09/03/2017 5:43 PM) Component Value Ref Range ABO Type O Rh Type Positive Expiration Date 09/06/2017 23:59 Antibody Screen Negative Comment: Allogenic Red Cells Available ER22 09/03/17 Specimen Performing Laboratory Blood [address] BLOOD BANK 52 [address] [place] [address] PROTIME/INR (09/03/2017 5:16 PM) Component Value Ref Range Protime 25.8 (H) 12.0 - 14.5 secs INR 2.4 2.0 - 3.5 Specimen Performing Laboratory Blood [address] [place] [address], [place] [address] Narrative Normal INR reference range (patients not on oral anticoagulants)0.9-1.1. INR Standard Intensity=(2.0 - 3.0) INR Higher Intensity=(2.5 - 3.5) LAB ONLY-COMPLETE BLOOD COUNT WITH DIFFERENTIAL (09/03/2017 5:16 PM) Component Value Ref Range WBC 4.7 4.0 - 11.0 K/uL RBC 2.52 (L) 4.40 - 5.80 M/uL Hemoglobin 7.7 (L) 13.5 - 17.5 g/dL Hematocrit 22.7 (L) 40.0 - 50.0 % MCV 90.1 80.0 - 98.0 fL MCH 30.6 25.5 - 34.0 pg MCHC 33.9 31.5 - 36.5 g/dL RDW-CV 15.0 11.5 - 15.5 % RDW-SD 46.9 35.5 - 50.0 fl Platelet Count 284 140 - 400 K/uL MPV 11.4 8.5 - 12.0 fL Seg Neut Absolute 3.8 1.8 - 8.0 K/uL Lymphocytes Absolute 0.4 (L) 0.8 - 4.1 K/uL Monocytes Absolute 0.4 0.0 - 1.0 K/uL Eosinophils Absolute 0.0 0.0 - 0.7 K/uL Basophil Absolute 0.0 0.0 - 0.2 K/uL Immature Granulocyte Absolute 0.05 0.00 - 0.06 K/uL Neutrophils Abs. (Segs and Bands) 3800 /uL Neutrophils Percent 81.1 % Lymphocytes Percent 8.4 % Monocytes Percent 9.2 % Immature Granulocyte Percent 1.1 % Eosinophils Percent 0.9 % Basophil Percent 0.4 % Specimen Performing Laboratory Blood [address] [address] TROPONIN I (09/03/2017 5:16 PM) Component Value Ref Range Troponin I 0.130 (H) 0.000 - 0.028 ng/mL Specimen Performing Laboratory Blood [address] [address] BRAIN NATRIURETIC PEPTIDE (09/03/2017 5:16 PM) Component Value Ref Range BNP 142 (H) 0 - 100 pg/mL Specimen Performing Laboratory Blood [address] [address] COMPREHENSIVE METABOLIC PANEL (09/03/2017 5:16 PM) Component Value Ref Range Glucose 245 (H) 70 - 100 mg/dL BUN 25 (H) 6 - 22 mg/dL Creatinine 1.51 (H) 0.80 - 1.30 mg/dL BUN/Creatinine Ratio 16.6 10.0 - 25.0 Sodium 135 135 - 145 meq/L Potassium 4.7 3.5 - 5.3 meq/L Chloride 99 99 - 110 meq/L CO2 27 20 - 29 meq/L Anion Gap with K 14 6 - 20 meq/L Calcium 9.2 8.5 - 10.5 mg/dL Protein Total 7.1 6.0 - 8.2 g/dL Albumin 3.6 3.5 - 5.0 g/dL Alkaline Phosphatase 149 30 - 150 U/L AST - SGOT 55 (H) 0 - 35 U/L ALT - SGPT 152 (H) 0 - 55 U/L Bilirubin Total 0.7 0.2 - 1.2 mg/dL Corrected Calcium 9.5 8.5 - 10.5 mg/dL Age 56 Years eGFR Non- 48 (L) >=60 mL/min/1.73m2 eGFR 58 (L) >=60 mL/min/1.73m2 Specimen Performing Laboratory Blood [address] [place] [address] COMPLETE BLOOD COUNT WITH DIFFERENTIAL (09/03/2017 5:16 PM) Specimen Performing Laboratory Blood Narrative The following orders were created for panel order COMPLETE BLOOD COUNT WITH DIFFERENTIAL. Procedure Abnormality Status --------- ------ LAB ONLY-COMPLETE BLOOD ...[[id number]]AbnormalFinal result Please view results for these tests on the individual orders. 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 Given 09/06/2017 00:41 CDT 650 mg Given 09/06/2017 11:45 CDT 650 mg aspirin chewable tablet 81 mg Given 09/06/2017 09:18 CDT 81 mg 81 mg, Oral, Daily, First dose on Sat09/06/17 at 0900, Until Discontinued, Post-Procedure (Cath) Given 09/07/2017 09:22 CDT 81 mg Given 09/08/2017 09:57 CDT 81 mg calcitriol (ROCALTROL) capsule 0.5 mcg Given 09/07/2017 23:19 CDT 0.5 mcg 0.5 mcg, Oral, Three times a day, First dose on Sat09/03/17 at 2100, Until Discontinued Given 09/08/2017 09:57 CDT 0.5 mcg Given 09/08/2017 15:40 CDT 0.5 mcg carVEDilol (COREG) tablet 6.25 mg Given 09/07/2017 11:14 CDT 6.25 mg 6.25 mg, Oral, Two times a day with meals, First dose on Sat09/07/17 at 1100, Until Discontinued, Take with food. Given 09/07/2017 18:15 CDT 6.25 mg Given 09/08/2017 08:17 CDT 6.25 mg fluconazole (DIFLUCAN) tablet 200 mg Given 09/06/2017 09:19 CDT 200 mg 200 mg, Oral, DAILY, First dose on Sat09/04/17 at 0900, Until Discontinued Given 09/07/2017 09:22 CDT 200 mg Given 09/08/2017 09:57 CDT 200 mg insulin aspart (NovoLOG) SQ correction scale Given 09/07/2017 06:55 CDT 2 Units (Adult) 2-8 Units, Subcutaneous, Three times a day with meals, First dose on Sat09/03/17 at 1900, Until Discontinued, 0.08 mL, LOW DOSE insulin aspart (NovoLOG) subcutaneous correction scale Premeal Blood Glucose=Insulin Dose 150-199 2 units 200-249 3 units 250-299 5 units 300-349 7 units Over 349 8 units Given 09/07/2017 18:15 CDT 5 Units Given 09/08/2017 08:58 CDT 2 Units insulin glargine (LANTUS) SQ injection Given 09/05/2017 21:59 CDT 8 Units 8 Units, Subcutaneous, Bedtime, First dose on Sat09/03/17 at 2100, Until Discontinued, 0.08 mL, Do not hold. Call provider if blood glucose less than 100 mg/dl, if patient changed to NPO or if tube feedings stopped. Given 09/06/2017 21:01 CDT 8 Units Given 09/07/2017 21:17 CDT 8 Units isosorbide mononitrate (IMDUR) SR tablet (24 hr) Given 09/06/2017 09:18 CDT 30 mg 30 mg 30 mg, Oral, DAILY, First dose on Sat09/04/17 at 0900, Until Discontinued, Tablet may be broken in half, but should not be crushed or chewed. Given 09/07/2017 09:22 CDT 30 mg Given 09/08/2017 09:57 CDT 30 mg Phytonadione (vitamin K) tablet 100 mcg Given 09/06/2017 09:19 CDT 100 mcg 100 mcg, Oral, Daily, First dose on Sat09/04/17 at 0900, Until Discontinued Given 09/07/2017 09:22 CDT 100 mcg Given 09/08/2017 09:57 CDT 100 mcg predniSONE tablet 10 mg Given 09/06/2017 09:18 CDT 10 mg 10 mg, Oral, DAILY, First dose on Sat09/04/17 at 0900, Until Discontinued Given 09/07/2017 09:22 CDT 10 mg Given 09/08/2017 09:57 CDT 10 mg sodium bicarbonate tablet 650 mg Given 09/07/2017 09:22 CDT 650 mg 650 mg, Oral, Two times a day, First dose on Sat09/03/17 at 2100, Until Discontinued Given 09/07/2017 21:17 CDT 650 mg Given 09/08/2017 09:57 CDT 650 mg sodium chloride 0.9% prefilled 10 mL syringe Given 09/06/2017 21:06 CDT 10 mL (Materials Management Item) 10 mL 10 mL, IV, Two times a day and prn, First dose on Sat09/03/17 at 2100, Until Discontinued, 10 mL, Flush IV line as scheduled and as often as necessary before and after meds. Given 09/07/2017 21:17 CDT 10 mL Given 09/08/2017 09:58 CDT 10 mL tacrolimus (PROGRAF) capsule 1 mg Given 09/07/2017 09:22 CDT 1 mg 1 mg, Oral, Every twelve hours with food, First dose on Sat09/03/17 at 2000, Until Discontinued, TRANSPLANT MEDICATION: This medication should be administered within 15 minutes of the due time. Do NOT skip a dose. Do NOT wait for drug level to result. If administered sublingual, RN must wear gloves and mask. RN to empty contents of capsule(s) under patient's tongue. After 20 minutes, instruct patient to swallow the contents of the capsules. Pharmacy to adjust as home dose This medication is a low risk cytotoxic drug. Wear 2 pairs of chemo gloves for administration. If unable to administer dose intact - contact pharmacy for other administration options. Dispose of empty packages in the yellow cytotoxic waste. Dispose of unused or partial packages in the black waste containers. Given 09/07/2017 21:17 CDT 1 mg Given 09/08/2017 09:30 CDT 1 mg ticagrelor (BRILINTA) tablet 90 mg Given 09/07/2017 09:22 CDT 90 mg 90 mg, Oral, Two times a day, 730 doses, First dose on Sat09/05/17 at 2100, Last dose on Sat09/05/18 at 0900, Post-Procedure (Cath), If medication is crushed, must be mixed with water for administration. Given 09/07/2017 21:18 CDT 90 mg Given 09/08/2017 09:57 CDT 90 mg traMADol (ULTRAM) tablet 50 mg Given 09/04/2017 11:36 CDT 50 mg 50 mg, Oral, Every six hours prn, Starting Sat09/03/17 at 1804, Until Discontinued, moderate pain, for pain Scale 4 to 6 or pain not relieved by medications for Pain Scale 1 - 3 Given 09/06/2017 14:48 CDT 50 mg vitamin D3 (cholecalciferol) tablet 1,000 Given 09/06/2017 09:18 CDT 1,000 Units Units 1,000 Units, Oral, DAILY, First dose on Sat09/04/17 at 0900, Until Discontinued Given 09/07/2017 09:22 CDT 1,000 Units Given 09/08/2017 09:57 CDT 1,000 Units Medication Order MAR Action Action Date Dose Rate Site aspirin tablet 325 mg Given 09/04/2017 13:17 CDT 325 mg 325 mg, Oral, One time, 1 dose, Sat09/04/17 at 1240 aspirin tablet 325 mg Given 09/05/2017 08:48 CDT 325 mg 325 mg, Oral, One time, 1 dose, Sat09/05/17 at 0855, Prep Orders (Cath) if inpatient - floor RN to release, Patient to receive 325 mg aspirin prior to procedure If patient currently taking aspirin at home and has not taken their dose today prior to procedure: hold this dose and administer 325 mg fentaNYL 100 mcg/2 mL preservative free Given 09/05/2017 09:56 CDT 25 mcg injection solution 25-300 mcg 25-300 mcg, IV, PRN per parameter, Starting Sat09/05/17 at 0803, Until Jada 09/05/17 at 1035, other (Specify), sedation for cardiac catheterization, 6 mL, Pre-Procedure (Cath), procedural area to release, For sedation under direction provider privileged to perform sedation. Do not give on the floor. iohexol (OMNIPAQUE) 350 mg/mL solution 80 mL Given 09/05/2017 10:35 CDT 80 mL 80 mL, Intra-arterial, One time, 1 dose, Jada 09/05/17 at 1040, 100 mL midazolam (VERSED) injection solution 1-20 mg Given 09/05/2017 09:56 CDT 1 mg 1-20 mg, IV, PRN per parameter, Starting Jada 09/05/17 at 0803, Until Jada 09/05/17 at 1035, other (Specify), sedation for cardiac catheterization, 20 mL, Pre-Procedure (Cath), procedural area to release, For sedation under direction provider privileged to perform sedation Do not give on the floor sodium chloride 0.9% IV solution New Bag 09/03/2017 21:54 CDT 50 mL/hr IV, at 100 mL/hr, Continuous, Starting 09/03/17 at 1810, Until 09/04/17 at 1809, 1,000 mL Rate Change 09/04/2017 10:50 CDT 100 mL/hr sodium chloride 0.9% IV solution Already Infusing 09/05/2017 11:01 CDT 150 mL/hr IV, at 150 mL/hr, Continuous, Starting Jada 09/05/17 at 1140, Until Jaad 09/05/17 at 1339, 1,000 mL, Post-Procedure (Cath) sodium chloride 0.9% IV solution Restarted 09/06/2017 12:03 CDT 100 mL/hr IV, at 100 mL/hr, Continuous, Starting Sat09/06/17 at 1020, Until 09/06/17 at 1216, 1,000 mL sodium chloride 0.9% IV solution Rate Change 09/06/2017 14:25 CDT 100 mL/hr IV, at 100 mL/hr, Continuous, Starting 09/06/17 at 1255, Until 09/07/17 at 1229, 1,000 mL New Bag 09/07/2017 01:27 CDT 100 mL/hr ticagrelor (BRILINTA) tablet 0-180 mg Given 09/05/2017 10:26 CDT 180 mg 0-180 mg, Oral, Administer in Cardiac Reaming Machine Operator For Plastic, 1 dose, Jada 09/05/17 at 1025, Under the direction of the provider in CCL. Do not give on the floor. verapamil-hEParin in normal saline (radial cocktail) Given 09/05/2017 10:21 CDT Intra-arterial, Administer in Cardiac Reaming Machine Operator For Plastic, 1 dose, Jada 09/05/17 at 1025, 10 mL, Under the direction of the provider in CCL. Do not give on the floor. warfarin (COUMADIN) - NO dose today Verified No Dose Today 09/03/2017 22:05 CDT Oral, Warfarin no dose, 1 dose, 09/03/17 at 1920 warfarin (COUMADIN) tablet 1.5 mg Given 09/05/2017 15:25 CDT 1.5 mg 1.5 mg, Oral, Warfarin one time dose, 1 dose, Jada 09/05/17 at 1600, If patient is receiving tube feeding, hold tube feeding 1 hour before and 1 hour after warfarin administration. warfarin (COUMADIN) tablet 1.5 mg Given 09/06/2017 17:24 CDT 1.5 mg 1.5 mg, Oral, Warfarin one time dose, 1 dose, 09/06/17 at 1600, If patient is receiving tube feeding, hold tube feeding 1 hour before and 1 hour after warfarin administration. warfarin (COUMADIN) tablet 1.5 mg Given 09/08/2017 15:37 CDT 1.5 mg 1.5 mg, Oral, Now, 1 dose, 09/08/17 at 1300, If patient is receiving tube feeding, hold tube feeding 1 hour before and 1 hour after warfarin administration. warfarin (COUMADIN) tablet 2 mg Given 09/07/2017 18:15 CDT 2 mg 2 mg, Oral, Warfarin one time dose, 1 dose, 09/07/17 at 1600, If patient is receiving tube feeding, hold tube feeding 1 hour before and 1 hour after warfarin administration. in this encounter
== END 2017-08-30 16:50 | disposition home or self-care (01) ==
LOC: FB.ED 12:22
DX: R07.89 Other chest pain (principal); F41.9 Anxiety disorder, unspecified; R10.9 Unspecified abdominal pain; E11.40 Type 2 diabetes mellitus with diabetic neuropathy, unspecified; F32.9 Major depressive disorder, single episode, unspecified; D64.9 Anemia, unspecified; Z79.899 Other long term (current) drug therapy; Z79.01 Long term (current) use of anticoagulants; Z94.0 Kidney transplant status
CPT/HCPCS: 36415; 71045; 80053; 81001; 84484; 85025; 85379; 85610; 93005; 99285

== ENCOUNTER 2017-09-23 13:08 | Observation (INO) | payer MEDICAID ==
[2017-09-23] MEDS ORDERED: Sodium Chloride 0.9% 1,000 ML IV SCH (16:15)
[2017-09-23] MEDS ORDERED: Polyethylene Glycol/Electrolytes 4,000 ML Bottle PO ONE (17:09)
[2017-09-23] MEDS ORDERED: Sodium Chloride 0.9% 250 ML IV SCH (17:15)
--- NOTE | 2017-09-23 17:18 | PCM.CONS ---
H&P History of Present Illness - General Date of Service: 09/23/17 Admit Problem/Dx: Admission Diagnosis/Problem Admission Diagnosis/Problem Melena Source of Information: Patient, Old Records - History of Present Illness Initial Comments - Free Text/Narative: 56 yo M who has had some bleeding per rectum. He has no abd pain, but just notes some dark red blood with bowel movements. Stools have tended to be on the looser side. He deneis any hx of melena. He has a hx of amenia, and does get frequent tranfusions. He is also on coumadin and vitamin K. Last scope done for bleeding was negative. - Related Data Allergies/Adverse Reactions: Allergies Allergy/AdvReac Type Severity Reaction Status Date / Time No Known Allergies Allergy Verified 09/23/17 16:20 Home Medications: Home Meds Cholecalciferol (Vitamin D3) [Vitamin D3] 1,000 unit PO DAILY 06/07/15 [History] Calcitriol [Rocaltrol] 0.5 mcg PO TID 08/22/15 [History] Magnesium Oxide [Magnesium] 500 mg PO TID 07/23/17 [History] Phytonadione [Vitamin K] 100 mcg PO 1300 07/23/17 [History] Sodium Bicarbonate 650 mg PO BID 07/23/17 [History] Tacrolimus 1 mg PO Q12H 07/23/17 [History] Warfarin Sodium 1.5 mg PO DAILY 07/23/17 [History] Fluconazole [Diflucan] 200 mg PO DAILY #30 tablet 07/25/17 [Rx] Aspirin 81 mg PO DAILY 09/17/17 [History] Carvedilol [Coreg] 6.25 mg PO BID 09/17/17 [History] Ticagrelor [Brilinta] 90 mg PO BID 09/17/17 [History] predniSONE [Prednisone] 10 mg PO DAILY 09/17/17 [History] Past Medical History HEENT History: Reports: Impaired Vision Other HEENT History: Pt wears glasses Cardiovascular History: Reports: High Cholesterol, Hypertension, HI, Other (See Below) Other Cardiovascular History: Pt reports being taken off HTN medication while his is taking antibiotics for recent hospitalization for viral menigitis.(05/13/15 ) (also "had HI 1 1/2 weeks ago went to [place] they put in a stent" this recorded on 09/14/17) Respiratory History: Reports: None Gastrointestinal History: Reports: Cholelithiasis, Diverticulosis, GERD Genitourinary History: Reports: Dialysis, Renal Disease, UTI, Recurrent, Other ( See Below) Other Genitourinary History: kidney transplant 17 years ago (2001) pts fistula was removed early may 2017 from left arm Musculoskeletal History: Reports: None Psychiatric History: Reports: Anxiety, Other (See Below) Other Psychiatric History: gets mildly depressed Endocrine/Metabolic History: Reports: Diabetes, Type II, Hypoparathyroidism Hematologic History: Reports: Anemia, Blood Transfusion(s) Immunologic History: Reports: Solid Organ Transplant Other Immunologic History: kidney transplant 2001 - Infectious Disease History Infectious Disease History: Reports: Chicken Pox - Past Surgical History Head Surgeries/Procedures: Reports: None Cardiovascular Surgical History: Reports: Carotid Stents Other Cardiovascular Surgeries/Procedures: stent placed end August 2017 GI Surgical History: Reports: Appendectomy, Cholecystectomy Male Surgical History: Reports: Other (See Below) Other Male Surgeries/Procedures: kidney transplant 17 years ago Musculoskeletal Surgical History: Reports: Hip Replacement Other Musculoskeletal Surgeries/Procedures:: both hips-replaced Social & Family History - Family History Family Medical History: Noncontributory Cardiac: Reports: Other (See Below) Other Cardiac Family History: Brother had bypass OBGYN: Reports: Endocrine/Metabolic: Reports: Diabetes, type II - Tobacco Use Smoking Status *Q: Former Smoker Years of Tobacco use: 25 Packs/Tins Daily: 0.5 Used Tobacco, but Quit: Yes Month/Year Tobacco Last Used: unknown Second Hand Smoke Exposure: No - Caffeine Use Caffeine Use: Reports: Coffee Other Caffeine Use: 2-3 cups per day - Recreational Drug Use Recreational Drug Use: No H&P Review of Systems - Review of Systems: Review Of Systems: See Below General: Reports: No Symptoms HEENT: Reports: No Symptoms Pulmonary: Reports: No Symptoms Cardiovascular: Reports: No Symptoms Gastrointestinal: Reports: No Symptoms Genitourinary: Reports: No Symptoms Skin: Reports: Bruising Exam - Exam Exam: See Below - Vital Signs Vital Signs: Last Vital Signs Temp 36.4 C 09/23/17 13:11 Pulse Resp 20 09/23/17 13:11 BP 120/60 09/23/17 13:11 Pulse Ox 97 09/23/17 13:11 - Exam General: Alert, Oriented, Cooperative. No: Mild Distress HEENT: Hearing Intact Lungs: Clear to Auscultation, Normal Respiratory Effort Cardiovascular: Regular Rate, Regular Rhythm GI/Abdominal Exam: Normal Bowel Sounds, Soft, Non-Tender (Male) Exam: Deferred Skin: Warm, Dry, Intact, Ecchymosis - Patient Data Lab Results Last 24 hrs: Laboratory Results - last 24 hr 09/23/17 09/23/17 09/23/17 Range/Units 14:35 14:35 14:35 WBC 6.2 (4.5-12.0) X10-3/uL RBC 2.38 L (4.30-5.75) x10(6)uL Hgb 7.5 L (11.5-15.5) g/dL Hct 21.9 L* (30.0-51.3) % MCV 92.0 (80-96) fL MCH 31.5 (27.7-33.6) pg MCHC 34.2 (32.2-35.4) g/dL RDW 15.0 (11.5-15.5) % Plt Count 413 H (125-369) X10(3)uL MPV 9.1 (7.4-10.4) fL Neut % (Auto) 83.3 H (46-82) % Lymph % (Auto) 9.9 L (13-37) % Dixon % (Auto) 4.5 (4-12) % Eos % (Auto) 2 (1.0-5.0) % Baso % (Auto) 0 (0-2) % Neut # (Auto) 5.2 (1.6-8.3) # Lymph # (Auto) 0.6 (0.6-5.0) # Dixon # (Auto) 0.3 (0.0-1.3) # Eos # (Auto) 0.1 (0.0-0.8) # Baso # (Auto) 0.0 (0.0-0.2) # PT (8.7-11.1) INR (0.89-1.13) APTT (24.4-33.2) SECONDS Sodium 138 (135-145) mmol/L Potassium 4.6 (3.5-5.3) mmol/L Chloride 102 (100-110) mmol/L Carbon Dioxide 27 (21-32) mmol/L BUN 49 H D (7-18) mg/dL Creatinine 1.7 H (0.70-1.30) mg/dL Est Cr Clr Drug Dosing TNP Estimated GFR (MDRD) 42 L (>60) BUN/Creatinine Ratio 28.8 H (9-20) Glucose 243 H (80-116) mg/dL Hemoglobin A1c (4.5-6.2) % Lactic Acid 1.3 (0.4-2.2) mmol/L Calcium 10.1 (8.6-10.2) mg/dL Total Bilirubin 0.4 (0.1-1.3) mg/dL AST 52 H (5-25) IU/L ALT 165 H* (12-36) U/L Alkaline Phosphatase 146 H (56-112) IU/L Total Protein 6.4 (6.0-8.0) g/dL Albumin 2.7 L (3.5-5.2) g/dL Globulin 3.7 g/dL Albumin/Globulin Ratio 0.7 Urine Color (YELLOW) Urine Appearance (CLEAR) Urine pH (5.0-6.5) Ur Specific [place] (1.010-1.025) Urine Protein (NEGATIVE) mg/dL Urine Glucose (UA) (NEGATIVE) mg/dL Urine Ketones (NEGATIVE) mg/dL Urine Occult Blood (NEGATIVE) Urine Nitrite (NEGATIVE) Urine Bilirubin (NEGATIVE) Urine Urobilinogen (NEGATIVE) mg/dL Ur Leukocyte Esterase (NEGATIVE) Urine RBC (0) Urine WBC (0) Ur Squamous Epith Cells (NS,R,O) Urine Bacteria (NS) 09/23/17 09/23/17 09/23/17 Range/Units 14:35 14:50 15:04 WBC (4.5-12.0) X10-3/uL RBC (4.30-5.75) x10(6)uL Hgb (11.5-15.5) g/dL Hct (30.0-51.3) % MCV (80-96) fL MCH (27.7-33.6) pg MCHC (32.2-35.4) g/dL RDW (11.5-15.5) % Plt Count (125-369) X10(3)uL MPV (7.4-10.4) fL Neut % (Auto) (46-82) % Lymph % (Auto) (13-37) % Dixon % (Auto) (4-12) % Eos % (Auto) (1.0-5.0) % Baso % (Auto) (0-2) % Neut # (Auto) (1.6-8.3) # Lymph # (Auto) (0.6-5.0) # Dixon # (Auto) (0.0-1.3) # Eos # (Auto) (0.0-0.8) # Baso # (Auto) (0.0-0.2) # PT 26.1 H (8.7-11.1) INR 2.72 H (0.89-1.13) APTT 44.4 H (24.4-33.2) SECONDS Sodium (135-145) mmol/L Potassium (3.5-5.3) mmol/L Chloride (100-110) mmol/L Carbon Dioxide (21-32) mmol/L BUN (7-18) mg/dL Creatinine (0.70-1.30) mg/dL Est Cr Clr Drug Dosing Estimated GFR (MDRD) (>60) BUN/Creatinine Ratio (9-20) Glucose (80-116) mg/dL Hemoglobin A1c 8.4 H (4.5-6.2) % Lactic Acid (0.4-2.2) mmol/L Calcium (8.6-10.2) mg/dL Total Bilirubin (0.1-1.3) mg/dL AST (5-25) IU/L ALT (12-36) U/L Alkaline Phosphatase (56-112) IU/L Total Protein (6.0-8.0) g/dL Albumin (3.5-5.2) g/dL Globulin g/dL Albumin/Globulin Ratio Urine Color Yellow (YELLOW) Urine Appearance Slightly cloudy (CLEAR) Urine pH 5.0 (5.0-6.5) Ur Specific [place] 1.015 (1.010-1.025) Urine Protein Negative (NEGATIVE) mg/dL Urine Glucose (UA) 100 H (NEGATIVE) mg/dL Urine Ketones Negative (NEGATIVE) mg/dL Urine Occult Blood Negative (NEGATIVE) Urine Nitrite Negative (NEGATIVE) Urine Bilirubin Small H (NEGATIVE) Urine Urobilinogen Normal (NEGATIVE) mg/dL Ur Leukocyte Esterase Large H (NEGATIVE) Urine RBC 5-10 (0) Urine WBC 20-30 H (0) Ur Squamous Epith Cells Occasional (NS,R,O) Urine Bacteria Few H (NS) Result Diagrams: 09/23/17 14:35 09/23/17 14:35 Consult PN Assessment/Plan Procedures: Procedures ASSAY OF AMYLASE (08/08/17) ASSAY OF FOLIC ACID SERUM (06/07/15) ASSAY OF MAGNESIUM (09/03/15) ASSAY OF SERUM SODIUM (06/07/15) ASSAY OF TROPONIN QUANT (08/30/17) BLOOD TRANSFUSION SERVICE (09/17/17) BLOOD TYPING SEROLOGIC ABO (09/17/17) BLOOD TYPING SEROLOGIC RH(D) (09/17/17) C-REACTIVE PROTEIN HS (06/06/15) CHEST X-RAY 2VW FRONTAL&LATL (04/23/14) COMPATIBILITY TEST ANTIGLOB (09/17/17) COMPATIBILITY TEST SPIN (09/17/17) COMPLETE CBC W/AUTO DIFF WBC (08/30/17) COMPREHEN METABOLIC PANEL (08/30/17) ELECTROCARDIOGRAM TRACING (08/30/17) EMERGENCY DEPT VISIT (08/30/17) EMERGENCY DEPT VISIT (03/17/17) EMERGENCY DEPT VISIT (06/07/15) EMERGENCY DEPT VISIT (06/06/15) EMERGENCY DEPT VISIT (04/23/14) EMERGENCY DEPT VISIT (04/23/14) FIBRIN DEGRADATION QUANT (08/30/17) GLUCOSE BLOOD TEST (06/07/15) HEMOGLOBIN (06/07/15) HYDRATE IV INFUSION ADD-ON (08/08/17) HYDRATION IV INFUSION INIT (08/08/17) METABOLIC PANEL TOTAL CA (08/08/17) PROTHROMBIN TIME (08/30/17) RBC ANTIBODY SCREEN (09/17/17) RBC SED RATE NONAUTOMATED (06/07/15) ROUTINE VENIPUNCTURE (09/17/17) THER/PROPH/DIAG INJ IV PUSH (06/07/15) THER/PROPH/DIAG IV INF INIT (06/06/15) TX/PRO/DX INJ NEW DRUG ADDON (06/06/15) URINALYSIS AUTO W/SCOPE (08/30/17) VITAMIN B-12 (06/07/15) X-RAY EXAM CHEST 1 VIEW (08/30/17) X-RAY EXAM NECK SPINE 2-3 VW (04/23/14) (1) GI bleed SNOMED Code(s): 14064189 Code(s): K92.2 - GASTROINTESTINAL HEMORRHAGE, UNSPECIFIED Current Visit: Yes Qualifiers: GI bleed type/associated pathology: unspecified gastrointestinal hemorrhage type Qualified Code(s): K92.2 - Gastrointestinal hemorrhage, unspecified Assessment:: Appears at this time to have a lower gi bleed. Problem List Initiated/Reviewed/Updated: Yes My Orders Last 24 Hours: My Active Orders 09/23/17 17:07 FRESH FROZEN PLASMA [BBK] Routine Transfuse Fresh Frozen Plasma [COMM] Routine 09/23/17 17:09 KCl/Na Sulf,Bicarb,Cl/PEG 3351 [GoLytely] 4,000 ml PO ONETIME ONE 09/23/17 17:10 Verify Patient Consent Obtain [RC] ASDIRECTED 09/23/17 17:15 Sodium Chloride 0.9% [Normal Saline] 250 ml IV ASDIRECTED 09/23/17 Dinner Clear Liquid Diet [DIET] 09/24/17 05:11 CBC WITH AUTO DIFF [HEME] AM INR,PT,PROTHROMBIN TIME [COAG] AM Plan: C scope in am. procedure and risks explained to the pt to include bleeding infection and perforation will tranfuse some FFP before the PRBC's tonight. recheck PT INR in am.
--- NOTE | 2017-09-23 18:10 | PCM.HP ---
H&P History of Present Illness - General Date of Service: 09/23/17 Source of Information: Patient History Limitations: Reports: No Limitations - History of Present Illness Initial Comments - Free Text/Narative: This is a 56-year-old male patient who is currently on Coumadin for previous clots in the stomach he states. He also has myelodysplastic syndrome and gets frequent transfusions at least once a month. His a 4 day history of bright red to black bloody stools. He says he feels fatigued but no dizziness. He has no chest pain. Feels little short of breath when he walks. His no coughing, wheezing, fevers, chills, dysuria, pyuria, hematuria. He has no diarrhea, constipation or abdominal pain. He has a history of transplant in 2001. - Related Data Allergies/Adverse Reactions: Allergies Allergy/AdvReac Type Severity Reaction Status Date / Time No Known Allergies Allergy Verified 09/23/17 16:20 Home Medications: Home Meds Cholecalciferol (Vitamin D3) [Vitamin D3] 1,000 unit PO DAILY 06/07/15 [History] Calcitriol [Rocaltrol] 0.5 mcg PO TID 08/22/15 [History] Magnesium Oxide [Magnesium] 500 mg PO TID 07/23/17 [History] Phytonadione [Vitamin K] 100 mcg PO 1300 07/23/17 [History] Sodium Bicarbonate 650 mg PO BID 07/23/17 [History] Tacrolimus 1 mg PO Q12H 07/23/17 [History] Warfarin Sodium 1.5 mg PO DAILY 07/23/17 [History] Fluconazole [Diflucan] 200 mg PO DAILY #30 tablet 07/25/17 [Rx] Aspirin 81 mg PO DAILY 09/17/17 [History] Carvedilol [Coreg] 6.25 mg PO BID 09/17/17 [History] Ticagrelor [Brilinta] 90 mg PO BID 09/17/17 [History] predniSONE [Prednisone] 10 mg PO DAILY 09/17/17 [History] Past Medical History HEENT History: Reports: Impaired Vision Other HEENT History: Pt wears glasses Cardiovascular History: Reports: High Cholesterol, Hypertension, [place], Other (See Below) Other Cardiovascular History: Pt reports being taken off HTN medication while his is taking antibiotics for recent hospitalization for viral menigitis.(05/13/15 ) (also "had KS 1 1/2 weeks ago went to [facility] they put in a stent" this recorded on 09/14/17) Respiratory History: Reports: None Gastrointestinal History: Reports: Cholelithiasis, Diverticulosis, GERD Genitourinary History: Reports: Dialysis, Renal Disease, UTI, Recurrent, Other ( See Below) Other Genitourinary History: kidney transplant 17 years ago (2001) pts fistula was removed early may 2017 from left arm Musculoskeletal History: Reports: None Psychiatric History: Reports: Anxiety, Other (See Below) Other Psychiatric History: gets mildly depressed Endocrine/Metabolic History: Reports: Diabetes, Type II, Hypoparathyroidism Hematologic History: Reports: Anemia, Blood Transfusion(s) Immunologic History: Reports: Solid Organ Transplant Other Immunologic History: kidney transplant 2001 - Infectious Disease History Infectious Disease History: Reports: Chicken Pox - Past Surgical History Head Surgeries/Procedures: Reports: None Cardiovascular Surgical History: Reports: Carotid Stents Other Cardiovascular Surgeries/Procedures: stent placed end of august 2017 GI Surgical History: Reports: Appendectomy, Cholecystectomy Male Surgical History: Reports: Other (See Below) Other Male Surgeries/Procedures: kidney transplant 17 years ago Musculoskeletal Surgical History: Reports: Hip Replacement Other Musculoskeletal Surgeries/Procedures:: both hips-replaced Social & Family History - Family History Family Medical History: Noncontributory Cardiac: Reports: Other (See Below) Other Cardiac Family History: Brother had bypass OBGYN: Reports: Endocrine/Metabolic: Reports: Diabetes, type II - Tobacco Use Smoking Status *Q: Former Smoker Years of Tobacco use: 25 Packs/Tins Daily: 0.5 Used Tobacco, but Quit: Yes Month/Year Tobacco Last Used: unknown Second Hand Smoke Exposure: No - Caffeine Use Caffeine Use: Reports: Coffee Other Caffeine Use: 2-3 cups per day - Recreational Drug Use Recreational Drug Use: No H&P Review of Systems - Review of Systems: Review Of Systems: See Below General: Reports: Malaise, Weakness HEENT: Reports: No Symptoms Pulmonary: Reports: Shortness of Breath. Denies: Wheezing, Cough, Sputum, Hemoptysis Cardiovascular: Reports: No Symptoms Gastrointestinal: Reports: Bloody Stool, Hematochezia, Melena. Denies: Abdominal Pain Genitourinary: Reports: No Symptoms Musculoskeletal: Reports: No Symptoms Skin: Reports: No Symptoms Psychiatric: Reports: Depression (With all his health problems.) Neurological: Reports: No Symptoms Hematologic/Lymphatic: Reports: Anemia, Easy Bruising Immunologic: Reports: No Symptoms Exam - Exam Exam: See Below - Vital Signs Vital Signs: Last Vital Signs Temp 97.5 F 09/23/17 13:11 Pulse Resp 20 09/23/17 13:11 BP 120/60 09/23/17 13:11 Pulse Ox 97 09/23/17 13:11 - Exam General: Alert, Oriented, Cooperative HEENT: PERRLA, Hearing Intact, Posterior Pharynx Clear, Pupils Equal, TMs Clear Neck: Supple, Trachea Midline. No: Lymphadenopathy, Carotid Bruit Lungs: Clear to Auscultation, Normal Respiratory Effort. No: Crackles, Rales, Rhonchi Cardiovascular: Regular Rate, Regular Rhythm GI/Abdominal Exam: Non-Tender, Tender (Diffusely tender without guarding, rebound or rebound.). No: Normal Bowel Sounds, Soft, No Distention, No Mass Rectal (Males) Exam: Other (ER doc did a rectal exam reported positive melena, hematochezia and guaiac positive stool. It was not repeated.) Back Exam: Normal Inspection, Full Range of Motion Extremities: Normal Inspection, Normal Range of Motion, Non-Tender, No Pedal Edema Skin: Warm, Dry, Intact Neurological: Normal Speech, Normal Tone Neuro Extensive - Mental Status: Alert, Oriented x3, Normal Mood/Affect, Normal Cognition Neuro Extensive - Motor, Sensory, Reflexes: Normal Gait Psychiatric: Alert, Normal Affect, Normal Mood - Patient Data Lab Results Last 24 hrs: Laboratory Results - last 24 hr 09/23/17 09/23/17 09/23/17 Range/Units 14:35 14:35 14:35 WBC 6.2 (4.5-12.0) X10-3/uL RBC 2.38 L (4.30-5.75) x10(6)uL Hgb 7.5 L (11.5-15.5) g/dL Hct 21.9 L* (30.0-51.3) % MCV 92.0 (80-96) fL MCH 31.5 (27.7-33.6) pg MCHC 34.2 (32.2-35.4) g/dL RDW 15.0 (11.5-15.5) % Plt Count 413 H (125-369) X10(3)uL MPV 9.1 (7.4-10.4) fL Neut % (Auto) 83.3 H (46-82) % Lymph % (Auto) 9.9 L (13-37) % [place] % (Auto) 4.5 (4-12) % Eos % (Auto) 2 (1.0-5.0) % Baso % (Auto) 0 (0-2) % Neut # (Auto) 5.2 (1.6-8.3) # Lymph # (Auto) 0.6 (0.6-5.0) # [place] # (Auto) 0.3 (0.0-1.3) # Eos # (Auto) 0.1 (0.0-0.8) # Baso # (Auto) 0.0 (0.0-0.2) # PT (8.7-11.1) INR (0.89-1.13) APTT (24.4-33.2) SECONDS Sodium 138 (135-145) mmol/L Potassium 4.6 (3.5-5.3) mmol/L Chloride 102 (100-110) mmol/L Carbon Dioxide 27 (21-32) mmol/L BUN 49 H D (7-18) mg/dL Creatinine 1.7 H (0.70-1.30) mg/dL Est Cr Clr Drug Dosing TNP Estimated GFR (MDRD) 42 L (>60) BUN/Creatinine Ratio 28.8 H (9-20) Glucose 243 H (80-116) mg/dL Hemoglobin A1c (4.5-6.2) % Lactic Acid 1.3 (0.4-2.2) mmol/L Calcium 10.1 (8.6-10.2) mg/dL Total Bilirubin 0.4 (0.1-1.3) mg/dL AST 52 H (5-25) IU/L ALT 165 H* (12-36) U/L Alkaline Phosphatase 146 H (56-112) IU/L Total Protein 6.4 (6.0-8.0) g/dL Albumin 2.7 L (3.5-5.2) g/dL Globulin 3.7 g/dL Albumin/Globulin Ratio 0.7 Urine Color (YELLOW) Urine Appearance (CLEAR) Urine pH (5.0-6.5) Ur Specific [place] (1.010-1.025) Urine Protein (NEGATIVE) mg/dL Urine Glucose (UA) (NEGATIVE) mg/dL Urine Ketones (NEGATIVE) mg/dL Urine Occult Blood (NEGATIVE) Urine Nitrite (NEGATIVE) Urine Bilirubin (NEGATIVE) Urine Urobilinogen (NEGATIVE) mg/dL Ur Leukocyte Esterase (NEGATIVE) Urine RBC (0) Urine WBC (0) Ur Squamous Epith Cells (NS,R,O) Urine Bacteria (NS) 09/23/17 09/23/17 09/23/17 Range/Units 14:35 14:50 15:04 WBC (4.5-12.0) X10-3/uL RBC (4.30-5.75) x10(6)uL Hgb (11.5-15.5) g/dL Hct (30.0-51.3) % MCV (80-96) fL MCH (27.7-33.6) pg MCHC (32.2-35.4) g/dL RDW (11.5-15.5) % Plt Count (125-369) X10(3)uL MPV (7.4-10.4) fL Neut % (Auto) (46-82) % Lymph % (Auto) (13-37) % [place] % (Auto) (4-12) % Eos % (Auto) (1.0-5.0) % Baso % (Auto) (0-2) % Neut # (Auto) (1.6-8.3) # Lymph # (Auto) (0.6-5.0) # [place] # (Auto) (0.0-1.3) # Eos # (Auto) (0.0-0.8) # Baso # (Auto) (0.0-0.2) # PT 26.1 H (8.7-11.1) INR 2.72 H (0.89-1.13) APTT 44.4 H (24.4-33.2) SECONDS Sodium (135-145) mmol/L Potassium (3.5-5.3) mmol/L Chloride (100-110) mmol/L Carbon Dioxide (21-32) mmol/L BUN (7-18) mg/dL Creatinine (0.70-1.30) mg/dL Est Cr Clr Drug Dosing Estimated GFR (MDRD) (>60) BUN/Creatinine Ratio (9-20) Glucose (80-116) mg/dL Hemoglobin A1c 8.4 H (4.5-6.2) % Lactic Acid (0.4-2.2) mmol/L Calcium (8.6-10.2) mg/dL Total Bilirubin (0.1-1.3) mg/dL AST (5-25) IU/L ALT (12-36) U/L Alkaline Phosphatase (56-112) IU/L Total Protein (6.0-8.0) g/dL Albumin (3.5-5.2) g/dL Globulin g/dL Albumin/Globulin Ratio Urine Color Yellow (YELLOW) Urine Appearance Slightly cloudy (CLEAR) Urine pH 5.0 (5.0-6.5) Ur Specific [place] 1.015 (1.010-1.025) Urine Protein Negative (NEGATIVE) mg/dL Urine Glucose (UA) 100 H (NEGATIVE) mg/dL Urine Ketones Negative (NEGATIVE) mg/dL Urine Occult Blood Negative (NEGATIVE) Urine Nitrite Negative (NEGATIVE) Urine Bilirubin Small H (NEGATIVE) Urine Urobilinogen Normal (NEGATIVE) mg/dL Ur Leukocyte Esterase Large H (NEGATIVE) Urine RBC 5-10 (0) Urine WBC 20-30 H (0) Ur Squamous Epith Cells Occasional (NS,R,O) Urine Bacteria Few H (NS) Result Diagrams: 09/23/17 14:35 09/23/17 14:35 - Problem List (1) Palliative care status SNOMED Code(s): 016491134 ICD Code: Z51.5 - ENCOUNTER FOR PALLIATIVE CARE Status: Acute Current Visit: Yes (2) GI bleed SNOMED Code(s): 52196785 ICD Code: K92.2 - GASTROINTESTINAL HEMORRHAGE, UNSPECIFIED Status: Acute Current Visit: Yes Qualifiers: GI bleed type/associated pathology: unspecified gastrointestinal hemorrhage type Qualified Code(s): K92.2 - Gastrointestinal hemorrhage, unspecified (3) Anemia, macrocytic SNOMED Code(s): 63298709 ICD Code: D53.9 - NUTRITIONAL ANEMIA, UNSPECIFIED Status: Acute Current Visit: No (4) Diabetes type 2, controlled SNOMED Code(s): 96044037 ICD Code: E11.9 - TYPE 2 DIABETES MELLITUS WITHOUT COMPLICATIONS Status: Acute Current Visit: No Qualifiers: Diabetes mellitus terminal system operator insulin use: without terminal system operator use Diabetes mellitus complication status: with kidney complications Chronic kidney disease stage: stage 2 (mild) (5) MDS (myelodysplastic syndrome) with 5q deletion SNOMED Code(s): 546310290 ICD Code: D46.C - MYELODYSPLASTIC SYNDROME W ISOLATED DEL(5Q) CHROMSOML ABNLT Status: Acute Current Visit: No (6) Status post kidney transplant Status: Acute Current Visit: No (7) CKD (chronic kidney disease) SNOMED Code(s): 695886455 ICD Code: N18.9 - CHRONIC KIDNEY DISEASE, UNSPECIFIED Status: Chronic Current Visit: No Qualifiers: Chronic kidney disease stage: stage 2 (mild) Qualified Code(s): N18.2 - Chronic kidney disease, stage 2 (mild) (8) HTN (hypertension) SNOMED Code(s): 89496879 ICD Code: I10 - ESSENTIAL (PRIMARY) HYPERTENSION Status: Chronic Current Visit: No Qualifiers: Hypertension type: essential hypertension Qualified Code(s): I10 - Essential (primary) hypertension (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 ICD Code: K55.069 - ACUTE INFARCTION OF INTESTINE, PART AND EXTENT UNSPECIFIED Status: Chronic Current Visit: No Problem List Initiated/Reviewed/Updated: Yes Orders Last 24hrs: Active Orders 24 hr Category Date Time Status Patient Status [ADT] Routine ADT 09/23/17 16:09 Active May Shower [RC] ASDIRECTED Care 09/23/17 16:08 Active Oxygen Therapy [RC] PRN Care 09/23/17 16:09 Active VTE/DVT Education [RC] Per Unit Routine Care 09/23/17 16:09 Active Verify Patient Consent Obtain [RC] ASDIRECTED Care 09/23/17 17:10 Active Vital Signs [RC] 08,12,16,20,00,04 Care 09/23/17 16:09 Active Clear Liquid Diet [DIET] Diet 09/23/17 Dinner Active CBC WITH AUTO DIFF [HEME] AM Lab 09/24/17 05:11 Ordered CULTURE URINE [RM] Routine Lab 09/23/17 15:04 Received FRESH FROZEN PLASMA [BBK] Routine Lab 09/23/17 14:50 Received INR,PT,PROTHROMBIN TIME [COAG] AM Lab 09/24/17 05:11 Ordered RED BLOOD CELLS LP [BBK] Urgent Lab 09/23/17 14:50 Received TYPE AND SCREEN [BBK] Urgent Lab 09/23/17 14:50 Received UA W/MICROSCOPIC [URIN] Urgent Lab 09/23/17 15:04 Ordered Carvedilol [Coreg] Med 09/23/17 21:00 Active 6.25 mg PO BID Fluconazole [Diflucan] Med 09/24/17 09:00 Active 200 mg PO DAILY Phytonadione [Vitamin K] Med 09/24/17 13:00 Active 100 mcg PO 1300 Sodium Bicarbonate Med 09/23/17 21:00 Active 650 mg PO BID Sodium Chloride 0.9% [Normal Saline] 1,000 ml Med 09/23/17 16:15 Active IV ASDIRECTED Sodium Chloride 0.9% [Normal Saline] 250 ml Med 09/23/17 16:15 Active IV ASDIRECTED Sodium Chloride 0.9% [Normal Saline] 250 ml Med 09/23/17 17:15 Active IV ASDIRECTED Tacrolimus [Prograf] Med 09/23/17 21:00 Active 1 mg PO Q12H predniSONE Med 09/24/17 09:00 Active 10 mg PO DAILY Antiembolic Hose [OM.PC] Per Unit Routine Oth 09/23/17 16:12 Ordered Transfuse Fresh Frozen Plasma [COMM] Routine Oth 09/23/17 17:07 Ordered Transfuse PRBC [Transfuse Red Blood Cells] [COMM] Oth 09/23/17 16:14 Ordered Urgent Resuscitation Status Routine Resus Stat 09/23/17 16:08 Ordered Medication Orders Carvedilol (Coreg) 6.25 mg PO BID [facility] Fluconazole (Diflucan) 200 mg PO DAILY [facility] Sodium Chloride (Normal Saline) 1,000 mls @ 125 mls/hr IV ASDIRECTED [facility] Sodium Chloride (Normal Saline) 250 mls @ 100 mls/hr IV ASDIRECTED [facility] Sodium Chloride (Normal Saline) 250 mls @ 100 mls/hr IV ASDIRECTED [facility] Phytonadione (Vitamin K) 100 mcg PO 1300 [facility] Prednisone (Prednisone) 10 mg PO DAILY [facility] Sodium Bicarbonate (Sodium Bicarbonate) 650 mg PO BID [facility] Tacrolimus (Prograf) 1 mg PO Q12H [facility] Assessment/Plan Comment:: 1. Admit to inpatient. 2. [facility] has been consulted. 3. Clear liquids. 4. Red blood cells and check hemoglobin/hematocrit every 4 hours. 5 FFP to bring down INR and check INR in a.m. 6. up ad an. 7. Vitals every 4 hours. 8. Assess medications he should be on for now. 9. Hold warfarin. 10 VTE prophylaxis Contraindicated.
[2017-09-23] MEDS: Sodium Chloride 0.9% 10 ML Syringe FLUSH PRN (18:20)
[2017-09-23] MEDS: Sodium Chloride 0.9% 250 ML IV SCH ×2 (19:54→21:44)
[2017-09-23] MEDS: Sodium Bicarbonate 650 MG Tab PO SCH (21:48)
[2017-09-23] MEDS: Carvedilol 6.25 MG Tab PO SCH (21:48)
[2017-09-23] MEDS: Tacrolimus 1 MG Cap PO SCH (21:49)
[2017-09-23] MEDS: Calcitriol 0.25 MCG Cap PO SCH (22:15)
[2017-09-24] MEDS: Sodium Chloride 0.9% 250 ML IV SCH ×4 (02:41→11:01)
[2017-09-24] MEDS: Sodium Chloride 0.9% 10 ML Syringe FLUSH PRN ×2 (05:36→09:57)
--- NOTE | 2017-09-24 08:00 | PCM.PN ---
- General Info Date of Service: 09/24/17 Admission Dx/Problem (Free Text): Patient is without concerns today. He has no abdominal pain, weakness. He states that he had the prep last night in his stools are normal longer bloody but are clear. - Patient Data Vitals - Most Recent: Last Vital Signs Temp 98.9 F 09/24/17 05:29 Pulse 51 L 09/24/17 05:29 Resp 18 09/24/17 05:29 BP 146/78 H 09/24/17 05:29 Pulse Ox 99 09/23/17 22:53 Weight - Most Recent: 168 lb 14.4 oz I&O - Last 24 Hours: Intake & Output 09/23/17 09/24/17 09/24/17 22:59 06:59 14:59 Intake Total 463 922 Output Total 400 Balance 63 922 Lab Results Last 24 Hours: Laboratory Results - last 24 hr 09/23/17 09/23/17 09/23/17 Range/Units 14:35 14:35 14:35 WBC 6.2 (4.5-12.0) X10-3/uL RBC 2.38 L (4.30-5.75) x10(6)uL Hgb 7.5 L (11.5-15.5) g/dL Hct 21.9 L* (30.0-51.3) % MCV 92.0 (80-96) fL MCH 31.5 (27.7-33.6) pg MCHC 34.2 (32.2-35.4) g/dL RDW 15.0 (11.5-15.5) % Plt Count 413 H (125-369) X10(3)uL MPV 9.1 (7.4-10.4) fL Neut % (Auto) 83.3 H (46-82) % Lymph % (Auto) 9.9 L (13-37) % [place] % (Auto) 4.5 (4-12) % Eos % (Auto) 2 (1.0-5.0) % Baso % (Auto) 0 (0-2) % Neut # (Auto) 5.2 (1.6-8.3) # Lymph # (Auto) 0.6 (0.6-5.0) # [place] # (Auto) 0.3 (0.0-1.3) # Eos # (Auto) 0.1 (0.0-0.8) # Baso # (Auto) 0.0 (0.0-0.2) # PT (8.7-11.1) INR (0.89-1.13) APTT (24.4-33.2) SECONDS Sodium 138 (135-145) mmol/L Potassium 4.6 (3.5-5.3) mmol/L Chloride 102 (100-110) mmol/L Carbon Dioxide 27 (21-32) mmol/L BUN 49 H D (7-18) mg/dL Creatinine 1.7 H (0.70-1.30) mg/dL Est Cr Clr Drug Dosing TNP Estimated GFR (MDRD) 42 L (>60) BUN/Creatinine Ratio 28.8 H (9-20) Glucose 243 H (80-116) mg/dL Hemoglobin A1c (4.5-6.2) % Lactic Acid 1.3 (0.4-2.2) mmol/L Calcium 10.1 (8.6-10.2) mg/dL Total Bilirubin 0.4 (0.1-1.3) mg/dL AST 52 H (5-25) IU/L ALT 165 H* (12-36) U/L Alkaline Phosphatase 146 H (56-112) IU/L Total Protein 6.4 (6.0-8.0) g/dL Albumin 2.7 L (3.5-5.2) g/dL Globulin 3.7 g/dL Albumin/Globulin Ratio 0.7 Urine Color (YELLOW) Urine Appearance (CLEAR) Urine pH (5.0-6.5) Ur Specific [place] (1.010-1.025) Urine Protein (NEGATIVE) mg/dL Urine Glucose (UA) (NEGATIVE) mg/dL Urine Ketones (NEGATIVE) mg/dL Urine Occult Blood (NEGATIVE) Urine Nitrite (NEGATIVE) Urine Bilirubin (NEGATIVE) Urine Urobilinogen (NEGATIVE) mg/dL Ur Leukocyte Esterase (NEGATIVE) Urine RBC (0) Urine WBC (0) Ur Squamous Epith Cells (NS,R,O) Urine Bacteria (NS) Blood Type Gel Antibody Screen Crossmatch 09/23/17 09/23/17 09/23/17 Range/Units 14:35 14:50 14:50 WBC (4.5-12.0) X10-3/uL RBC (4.30-5.75) x10(6)uL Hgb (11.5-15.5) g/dL Hct (30.0-51.3) % MCV (80-96) fL MCH (27.7-33.6) pg MCHC (32.2-35.4) g/dL RDW (11.5-15.5) % Plt Count (125-369) X10(3)uL MPV (7.4-10.4) fL Neut % (Auto) (46-82) % Lymph % (Auto) (13-37) % [place] % (Auto) (4-12) % Eos % (Auto) (1.0-5.0) % Baso % (Auto) (0-2) % Neut # (Auto) (1.6-8.3) # Lymph # (Auto) (0.6-5.0) # [place] # (Auto) (0.0-1.3) # Eos # (Auto) (0.0-0.8) # Baso # (Auto) (0.0-0.2) # PT 26.1 H (8.7-11.1) INR 2.72 H (0.89-1.13) APTT 44.4 H (24.4-33.2) SECONDS Sodium (135-145) mmol/L Potassium (3.5-5.3) mmol/L Chloride (100-110) mmol/L Carbon Dioxide (21-32) mmol/L BUN (7-18) mg/dL Creatinine (0.70-1.30) mg/dL Est Cr Clr Drug Dosing Estimated GFR (MDRD) (>60) BUN/Creatinine Ratio (9-20) Glucose (80-116) mg/dL Hemoglobin A1c 8.4 H (4.5-6.2) % Lactic Acid (0.4-2.2) mmol/L Calcium (8.6-10.2) mg/dL Total Bilirubin (0.1-1.3) mg/dL AST (5-25) IU/L ALT (12-36) U/L Alkaline Phosphatase (56-112) IU/L Total Protein (6.0-8.0) g/dL Albumin (3.5-5.2) g/dL Globulin g/dL Albumin/Globulin Ratio Urine Color (YELLOW) Urine Appearance (CLEAR) Urine pH (5.0-6.5) Ur Specific [place] (1.010-1.025) Urine Protein (NEGATIVE) mg/dL Urine Glucose (UA) (NEGATIVE) mg/dL Urine Ketones (NEGATIVE) mg/dL Urine Occult Blood (NEGATIVE) Urine Nitrite (NEGATIVE) Urine Bilirubin (NEGATIVE) Urine Urobilinogen (NEGATIVE) mg/dL Ur Leukocyte Esterase (NEGATIVE) Urine RBC (0) Urine WBC (0) Ur Squamous Epith Cells (NS,R,O) Urine Bacteria (NS) Blood Type O POSITIVE Gel Antibody Screen Negative Crossmatch See Detail 09/23/17 09/24/17 09/24/17 Range/Units 15:04 06:20 06:20 WBC 5.0 (4.5-12.0) X10-3/uL RBC 3.03 L (4.30-5.75) x10(6)uL Hgb 9.1 L (11.5-15.5) g/dL Hct 27.2 L (30.0-51.3) % MCV 89.7 (80-96) fL MCH 30.0 (27.7-33.6) pg MCHC 33.4 (32.2-35.4) g/dL RDW 14.1 (11.5-15.5) % Plt Count 355 (125-369) X10(3)uL MPV 8.8 (7.4-10.4) fL Neut % (Auto) 70.6 (46-82) % Lymph % (Auto) 19.2 (13-37) % [place] % (Auto) 6.2 (4-12) % Eos % (Auto) 3 (1.0-5.0) % Baso % (Auto) 1 (0-2) % Neut # (Auto) 3.5 (1.6-8.3) # Lymph # (Auto) 1.0 (0.6-5.0) # [place] # (Auto) 0.3 (0.0-1.3) # Eos # (Auto) 0.2 (0.0-0.8) # Baso # (Auto) 0.0 (0.0-0.2) # PT 20.8 H (8.7-11.1) INR 2.16 H (0.89-1.13) APTT (24.4-33.2) SECONDS Sodium (135-145) mmol/L Potassium (3.5-5.3) mmol/L Chloride (100-110) mmol/L Carbon Dioxide (21-32) mmol/L BUN (7-18) mg/dL Creatinine (0.70-1.30) mg/dL Est Cr Clr Drug Dosing Estimated GFR (MDRD) (>60) BUN/Creatinine Ratio (9-20) Glucose (80-116) mg/dL Hemoglobin A1c (4.5-6.2) % Lactic Acid (0.4-2.2) mmol/L Calcium (8.6-10.2) mg/dL Total Bilirubin (0.1-1.3) mg/dL AST (5-25) IU/L ALT (12-36) U/L Alkaline Phosphatase (56-112) IU/L Total Protein (6.0-8.0) g/dL Albumin (3.5-5.2) g/dL Globulin g/dL Albumin/Globulin Ratio Urine Color Yellow (YELLOW) Urine Appearance Slightly cloudy (CLEAR) Urine pH 5.0 (5.0-6.5) Ur Specific [place] 1.015 (1.010-1.025) Urine Protein Negative (NEGATIVE) mg/dL Urine Glucose (UA) 100 H (NEGATIVE) mg/dL Urine Ketones Negative (NEGATIVE) mg/dL Urine Occult Blood Negative (NEGATIVE) Urine Nitrite Negative (NEGATIVE) Urine Bilirubin Small H (NEGATIVE) Urine Urobilinogen Normal (NEGATIVE) mg/dL Ur Leukocyte Esterase Large H (NEGATIVE) Urine RBC 5-10 (0) Urine WBC 20-30 H (0) Ur Squamous Epith Cells Occasional (NS,R,O) Urine Bacteria Few H (NS) Blood Type Gel Antibody Screen Crossmatch Med Orders - Current: Current Medications Calcitriol (Rocaltrol) 0.5 mcg PO TID [facility] Last Admin: 09/23/17 22:15 Dose: 0.5 mcg Carvedilol (Coreg) 6.25 mg PO BID [facility] Last Admin: 09/23/17 21:48 Dose: 6.25 mg Fluconazole (Diflucan) 200 mg PO DAILY [facility] Sodium Chloride (Normal Saline) 1,000 mls @ 125 mls/hr IV ASDIRECTED [facility] Last Admin: 09/24/17 07:14 Dose: 125 mls/hr Sodium Chloride (Normal Saline) 250 mls @ 100 mls/hr IV ASDIRECTED [facility] Last Admin: 09/24/17 05:27 Dose: 100 mls/hr Sodium Chloride (Normal Saline) 250 mls @ 100 mls/hr IV ASDIRECTED [facility] Sodium Chloride (Normal Saline) 250 mls @ 100 mls/hr IV ASDIRECTED [facility] Phytonadione (Vitamin K) 100 mcg PO 1300 [facility] Prednisone (Prednisone) 10 mg PO DAILY [facility] Sodium Bicarbonate (Sodium Bicarbonate) 650 mg PO BID [facility] Last Admin: 09/23/17 21:48 Dose: 650 mg Sodium Chloride (Saline Flush) 10 ml FLUSH ASDIRECTED PRN PRN Reason: IV Use Last Admin: 09/24/17 05:36 Dose: 10 ml Tacrolimus (Prograf) 1 mg PO Q12H [facility] Last Admin: 09/23/17 21:49 Dose: 1 mg Discontinued Medications Polyethylene Glycol/Electrolytes (Golytely) 4,000 ml PO ONETIME ONE Stop: 09/23/17 17:10 Last Admin: 09/23/17 19:51 Dose: 4,000 ml - Exam General: Alert, Oriented, Cooperative Lungs: Normal Respiratory Effort GI/Abdominal Exam: Normal Bowel Sounds, Soft, Non-Tender, No Distention, No Abnormal Bruit, No Mass - Problem List & Annotations (1) Palliative care status SNOMED Code(s): 951555732 Code(s): Z51.5 - ENCOUNTER FOR PALLIATIVE CARE Status: Acute Current Visit: Yes (2) GI bleed SNOMED Code(s): 47765178 Code(s): K92.2 - GASTROINTESTINAL HEMORRHAGE, UNSPECIFIED Status: Acute Current Visit: Yes Qualifiers: GI bleed type/associated pathology: unspecified gastrointestinal hemorrhage type Qualified Code(s): K92.2 - Gastrointestinal hemorrhage, unspecified (3) Anemia, macrocytic SNOMED Code(s): 52495885 Code(s): D53.9 - NUTRITIONAL ANEMIA, UNSPECIFIED Status: Acute Current Visit: No (4) Diabetes type 2, controlled SNOMED Code(s): 92177352 Code(s): E11.9 - TYPE 2 DIABETES MELLITUS WITHOUT COMPLICATIONS Status: Acute Current Visit: No Qualifiers: Diabetes mellitus transmission specialist insulin use: without skilled nursing use Diabetes mellitus complication status: with kidney complications Chronic kidney disease stage: stage 2 (mild) (5) MDS (myelodysplastic syndrome) with 5q deletion SNOMED Code(s): 540521885 Code(s): D46.C - MYELODYSPLASTIC SYNDROME W ISOLATED DEL(5Q) CHROMSOML ABNLT Status: Acute Current Visit: No (6) Status post kidney transplant Status: Acute Current Visit: No (7) CKD (chronic kidney disease) SNOMED Code(s): 386613590 Code(s): N18.9 - CHRONIC KIDNEY DISEASE, UNSPECIFIED Status: Chronic Current Visit: No Qualifiers: Chronic kidney disease stage: stage 2 (mild) Qualified Code(s): N18.2 - Chronic kidney disease, stage 2 (mild) (8) HTN (hypertension) SNOMED Code(s): 32037883 Code(s): I10 - ESSENTIAL (PRIMARY) HYPERTENSION Status: Chronic Current Visit: No Qualifiers: Hypertension type: essential hypertension Qualified Code(s): I10 - Essential (primary) hypertension (9) Mesenteric artery thrombosis SNOMED Code(s): 748712724 Code(s): K55.069 - ACUTE INFARCTION OF INTESTINE, PART AND EXTENT UNSPECIFIED Status: Chronic Current Visit: No - Problem List Review Problem List Initiated/Reviewed/Updated: Yes - Plan Plan:: 1. Endoscopy today.
[2017-09-24] MEDS ORDERED: Isosorbide Mononitrate 30 MG Tab.ER PO SCH (09:00)
[2017-09-24] MEDS ORDERED: Fluconazole 100 MG Tab PO SCH (09:00)
[2017-09-24] MEDS ORDERED: predniSONE 10 MG Tab PO SCH (09:00)
[2017-09-24] MEDS: Calcitriol 0.25 MCG Cap PO SCH ×2 (09:49→13:11)
[2017-09-24] MEDS: Carvedilol 6.25 MG Tab PO SCH (09:50)
[2017-09-24] MEDS: Tacrolimus 1 MG Cap PO SCH (09:50)
[2017-09-24] MEDS: Sodium Bicarbonate 650 MG Tab PO SCH (09:50)
[2017-09-24] MEDS ORDERED: Glycopyrrolate 0.2 MG/ML 2 ML SDV IV ONE (10:00)
[2017-09-24] MEDS ORDERED: Midazolam 1 MG/ML 2 ML SDV IV ONE (10:00)
[2017-09-24] MEDS ORDERED: Lactated Ringers 1,000 ML IV ONE (10:00)
[2017-09-24] MEDS ORDERED: Propofol 200 MG/20 ML SDV IV ONE (10:00)
--- NOTE | 2017-09-24 10:52 | PCM.OPNOTE ---
- General Post-Op/Procedure Note Date of Surgery/Procedure: 09/24/17 Operative Procedure(s): c scope Findings: diverticulosis Pre Op Diagnosis: lower gi bleed Post-Op Diagnosis: diverticulosis Anesthesia Technique: MAC Primary Surgeon: Jesus Alberto Chin Anesthesia Provider: Doug Grullon Pathology: none Complications: None Condition: Good Free Text/Narrative:: Intake & Output 09/23/17 09/24/17 09/24/17 22:59 06:59 14:59 Intake Total 463 922 50 Output Total 400 Balance 63 922 50 see dictation #
[2017-09-24] MEDS ORDERED: Morphine 10 MG/ML Syringe IVPUSH ONE (12:25)
[2017-09-24] MEDS ORDERED: Phytonadione 100 MCG Tab PO SCH (13:00)
[2017-09-24 13:16] VITALS: BP 174/89
--- NOTE | 2017-09-24 13:26 | ER ---
DATE SEEN: 09/23/2017 ADDENDUM: TIME SEEN: The patient was seen at 1400 hours. /[id number] AMY/MILES
--- NOTE | 2017-09-24 14:45 | PCM.SN ---
- Free Text/Narrative Note: Dr. Chin related the colonoscopy and EGD showed no active bleeding. Patient did not bleed was able tolerate food. Will discharge him home with holding his Coumadin for 1 week. If he does not bleed then restarted 1 week with the Coumadin clinic. He should recheck with his primary physician in regards to his Coumadin usage. I will also send a note to his oncologist about what happened.
--- NOTE | 2017-09-24 14:47 | PCM.DCSUM1 ---
Discharge Summary - Hospital Course Free Text/Narrative:: Hospital course-patient was given fresh frozen plasma and serial hemoglobins. He was given 2 units of RBCs. Next morning his hemoglobin proximal 7 to over 9. He had the prep for colonoscopy and his bleeding stopped. He had a colonoscopy and EGD in the morning there were negative for bleeding. He got a couple more doses of fresh frozen plasma in the morning to bring his INR down. 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 He tolerated lunch and will discharge to home with follow-up with Dr. Chin and his primary care to hold his Coumadin for 1 week and if he does not bleed started. I will also try to contact oncologist to make sure that was going on. Brief History: This is a 56-year-old male patient who is currently on Coumadin for previous clots in the stomach he states. He also has myelodysplastic syndrome and gets frequent transfusions at least once a month. His a 4 day history of bright red to black bloody stools. He says he feels fatigued but no dizziness. He has no chest pain. Feels little short of breath when he walks. His no coughing, wheezing, fevers, chills, dysuria, pyuria, hematuria. He has no diarrhea, constipation or abdominal pain. He has a history of transplant in 2001. - Discharge Data Discharge Date: 09/24/17 Discharge Disposition: Home, Self-Care 01 Condition: Good - Discharge Diagnosis/Problem(s) (1) Palliative care status SNOMED Code(s): 552748715 ICD Code: Z51.5 - ENCOUNTER FOR PALLIATIVE CARE Status: Acute Current Visit: Yes (2) GI bleed SNOMED Code(s): 31769567 ICD Code: K92.2 - GASTROINTESTINAL HEMORRHAGE, UNSPECIFIED Status: Acute Current Visit: Yes Qualifiers: GI bleed type/associated pathology: unspecified gastrointestinal hemorrhage type Qualified Code(s): K92.2 - Gastrointestinal hemorrhage, unspecified (3) Anemia, macrocytic SNOMED Code(s): 57540825 ICD Code: D53.9 - NUTRITIONAL ANEMIA, UNSPECIFIED Status: Acute Current Visit: No (4) Diabetes type 2, controlled SNOMED Code(s): 42249358 ICD Code: E11.9 - TYPE 2 DIABETES MELLITUS WITHOUT COMPLICATIONS Status: Acute Current Visit: No Qualifiers: Diabetes mellitus chcf insulin use: without terminal operations manager use Diabetes mellitus complication status: with kidney complications Chronic kidney disease stage: stage 2 (mild) (5) MDS (myelodysplastic syndrome) with 5q deletion SNOMED Code(s): 667280744 ICD Code: D46.C - MYELODYSPLASTIC SYNDROME W ISOLATED DEL(5Q) CHROMSOML ABNLT Status: Acute Current Visit: No (6) Status post kidney transplant Status: Acute Current Visit: No (7) CKD (chronic kidney disease) SNOMED Code(s): 011132032 ICD Code: N18.9 - CHRONIC KIDNEY DISEASE, UNSPECIFIED Status: Chronic Current Visit: No Qualifiers: Chronic kidney disease stage: stage 2 (mild) Qualified Code(s): N18.2 - Chronic kidney disease, stage 2 (mild) (8) HTN (hypertension) SNOMED Code(s): 01946027 ICD Code: I10 - ESSENTIAL (PRIMARY) HYPERTENSION Status: Chronic Current Visit: No Qualifiers: Hypertension type: essential hypertension Qualified Code(s): I10 - Essential (primary) hypertension (9) Mesenteric artery thrombosis SNOMED Code(s): 390351053 ICD Code: K55.069 - ACUTE INFARCTION OF INTESTINE, PART AND EXTENT UNSPECIFIED Status: Chronic Current Visit: No - Patient Summary/Data Operative Procedure(s) Performed: c scope - Patient Instructions Diet: Diabetic Diet Activity: As Tolerated Driving: May Drive Today Showering/Bathing: May Shower Notify Provider of: Drainage Other/Special Instructions: 1. Recheck with Dr. Chin 7-10 days. 2. Hold Coumadin for one week. If there is no bleeding to restart at the normal dose and contact the Coumadin clinic so they can aid him. 3. Recheck with Dr. Andersen or Dr Mcgee in regards to his Coumadin in one week. - Discharge Plan Home Medications: Home Meds Cholecalciferol (Vitamin D3) [Vitamin D3] 1,000 unit PO DAILY 06/07/15 [History] Calcitriol [Rocaltrol] 0.5 mcg PO TID 08/22/15 [History] Magnesium Oxide [Magnesium] 500 mg PO TID 07/23/17 [History] Phytonadione [Vitamin K] 100 mcg PO 1300 07/23/17 [History] Sodium Bicarbonate 650 mg PO BID 07/23/17 [History] Tacrolimus 1 mg PO Q12H 07/23/17 [History] Fluconazole [Diflucan] 200 mg PO DAILY #30 tablet 07/25/17 [Rx] Aspirin 81 mg PO DAILY 09/17/17 [History] Carvedilol [Coreg] 6.25 mg PO BID 09/17/17 [History] Ticagrelor [Brilinta] 90 mg PO BID 09/17/17 [History] predniSONE [Prednisone] 10 mg PO DAILY 09/17/17 [History] Patient Handouts: Blood Transfusion, Adult, [id number], Colonoscopy, Adult, Care After, [id number]-[id number], Gastrointestinal Bleeding, [id number], Fall Prevention in Hospitals, Adult, Diverticulosis, Venous Thromboembolism Prevention Forms: ED Department Discharge Referrals: Du Andersen MD [Primary Care Provider] - - Discharge Summary/Plan Comment DC Time >30 min.: No - Patient Data Vitals - Most Recent: Last Vital Signs Temp 97.8 F 09/24/17 12:55 Pulse 74 09/24/17 12:55 Resp 20 09/24/17 12:55 BP 174/89 H 09/24/17 12:55 Pulse Ox 95 09/24/17 12:06 Weight - Most Recent: 168 lb 14.4 oz I&O - Last 24 hours: Intake & Output 09/23/17 09/24/17 09/24/17 22:59 06:59 14:59 Intake Total 463 922 903 Output Total 400 Balance 63 922 903 Lab Results - Last 24 hrs: Laboratory Results - last 24 hr 09/23/17 09/23/17 09/23/17 Range/Units 14:35 14:35 14:35 WBC 6.2 (4.5-12.0) X10-3/uL RBC 2.38 L (4.30-5.75) x10(6)uL Hgb 7.5 L (11.5-15.5) g/dL Hct 21.9 L* (30.0-51.3) % MCV 92.0 (80-96) fL MCH 31.5 (27.7-33.6) pg MCHC 34.2 (32.2-35.4) g/dL RDW 15.0 (11.5-15.5) % Plt Count 413 H (125-369) X10(3)uL MPV 9.1 (7.4-10.4) fL Neut % (Auto) 83.3 H (46-82) % Lymph % (Auto) 9.9 L (13-37) % Kershaw % (Auto) 4.5 (4-12) % Eos % (Auto) 2 (1.0-5.0) % Baso % (Auto) 0 (0-2) % Neut # (Auto) 5.2 (1.6-8.3) # Lymph # (Auto) 0.6 (0.6-5.0) # Kershaw # (Auto) 0.3 (0.0-1.3) # Eos # (Auto) 0.1 (0.0-0.8) # Baso # (Auto) 0.0 (0.0-0.2) # PT (8.7-11.1) INR (0.89-1.13) APTT (24.4-33.2) SECONDS Sodium 138 (135-145) mmol/L Potassium 4.6 (3.5-5.3) mmol/L Chloride 102 (100-110) mmol/L Carbon Dioxide 27 (21-32) mmol/L BUN 49 H D (7-18) mg/dL Creatinine 1.7 H (0.70-1.30) mg/dL Est Cr Clr Drug Dosing TNP Estimated GFR (MDRD) 42 L (>60) BUN/Creatinine Ratio 28.8 H (9-20) Glucose 243 H (80-116) mg/dL Hemoglobin A1c (4.5-6.2) % Lactic Acid 1.3 (0.4-2.2) mmol/L Calcium 10.1 (8.6-10.2) mg/dL Total Bilirubin 0.4 (0.1-1.3) mg/dL AST 52 H (5-25) IU/L ALT 165 H* (12-36) U/L Alkaline Phosphatase 146 H (56-112) IU/L Total Protein 6.4 (6.0-8.0) g/dL Albumin 2.7 L (3.5-5.2) g/dL Globulin 3.7 g/dL Albumin/Globulin Ratio 0.7 Urine Color (YELLOW) Urine Appearance (CLEAR) Urine pH (5.0-6.5) Ur Specific Mcgrann (1.010-1.025) Urine Protein (NEGATIVE) mg/dL Urine Glucose (UA) (NEGATIVE) mg/dL Urine Ketones (NEGATIVE) mg/dL Urine Occult Blood (NEGATIVE) Urine Nitrite (NEGATIVE) Urine Bilirubin (NEGATIVE) Urine Urobilinogen (NEGATIVE) mg/dL Ur Leukocyte Esterase (NEGATIVE) Urine RBC (0) Urine WBC (0) Ur Squamous Epith Cells (NS,R,O) Urine Bacteria (NS) Blood Type Gel Antibody Screen Crossmatch 09/23/17 09/23/17 09/23/17 Range/Units 14:35 14:50 14:50 WBC (4.5-12.0) X10-3/uL RBC (4.30-5.75) x10(6)uL Hgb (11.5-15.5) g/dL Hct (30.0-51.3) % MCV (80-96) fL MCH (27.7-33.6) pg MCHC (32.2-35.4) g/dL RDW (11.5-15.5) % Plt Count (125-369) X10(3)uL MPV (7.4-10.4) fL Neut % (Auto) (46-82) % Lymph % (Auto) (13-37) % Kershaw % (Auto) (4-12) % Eos % (Auto) (1.0-5.0) % Baso % (Auto) (0-2) % Neut # (Auto) (1.6-8.3) # Lymph # (Auto) (0.6-5.0) # Kershaw # (Auto) (0.0-1.3) # Eos # (Auto) (0.0-0.8) # Baso # (Auto) (0.0-0.2) # PT 26.1 H (8.7-11.1) INR 2.72 H (0.89-1.13) APTT 44.4 H (24.4-33.2) SECONDS Sodium (135-145) mmol/L Potassium (3.5-5.3) mmol/L Chloride (100-110) mmol/L Carbon Dioxide (21-32) mmol/L BUN (7-18) mg/dL Creatinine (0.70-1.30) mg/dL Est Cr Clr Drug Dosing Estimated GFR (MDRD) (>60) BUN/Creatinine Ratio (9-20) Glucose (80-116) mg/dL Hemoglobin A1c 8.4 H (4.5-6.2) % Lactic Acid (0.4-2.2) mmol/L Calcium (8.6-10.2) mg/dL Total Bilirubin (0.1-1.3) mg/dL AST (5-25) IU/L ALT (12-36) U/L Alkaline Phosphatase (56-112) IU/L Total Protein (6.0-8.0) g/dL Albumin (3.5-5.2) g/dL Globulin g/dL Albumin/Globulin Ratio Urine Color (YELLOW) Urine Appearance (CLEAR) Urine pH (5.0-6.5) Ur Specific Mcgrann (1.010-1.025) Urine Protein (NEGATIVE) mg/dL Urine Glucose (UA) (NEGATIVE) mg/dL Urine Ketones (NEGATIVE) mg/dL Urine Occult Blood (NEGATIVE) Urine Nitrite (NEGATIVE) Urine Bilirubin (NEGATIVE) Urine Urobilinogen (NEGATIVE) mg/dL Ur Leukocyte Esterase (NEGATIVE) Urine RBC (0) Urine WBC (0) Ur Squamous Epith Cells (NS,R,O) Urine Bacteria (NS) Blood Type O POSITIVE Gel Antibody Screen Negative Crossmatch See Detail 09/23/17 09/24/17 09/24/17 Range/Units 15:04 06:20 06:20 WBC 5.0 (4.5-12.0) X10-3/uL RBC 3.03 L (4.30-5.75) x10(6)uL Hgb 9.1 L (11.5-15.5) g/dL Hct 27.2 L (30.0-51.3) % MCV 89.7 (80-96) fL MCH 30.0 (27.7-33.6) pg MCHC 33.4 (32.2-35.4) g/dL RDW 14.1 (11.5-15.5) % Plt Count 355 (125-369) X10(3)uL MPV 8.8 (7.4-10.4) fL Neut % (Auto) 70.6 (46-82) % Lymph % (Auto) 19.2 (13-37) % Kershaw % (Auto) 6.2 (4-12) % Eos % (Auto) 3 (1.0-5.0) % Baso % (Auto) 1 (0-2) % Neut # (Auto) 3.5 (1.6-8.3) # Lymph # (Auto) 1.0 (0.6-5.0) # Kershaw # (Auto) 0.3 (0.0-1.3) # Eos # (Auto) 0.2 (0.0-0.8) # Baso # (Auto) 0.0 (0.0-0.2) # PT 20.8 H (8.7-11.1) INR 2.16 H (0.89-1.13) APTT (24.4-33.2) SECONDS Sodium (135-145) mmol/L Potassium (3.5-5.3) mmol/L Chloride (100-110) mmol/L Carbon Dioxide (21-32) mmol/L BUN (7-18) mg/dL Creatinine (0.70-1.30) mg/dL Est Cr Clr Drug Dosing Estimated GFR (MDRD) (>60) BUN/Creatinine Ratio (9-20) Glucose (80-116) mg/dL Hemoglobin A1c (4.5-6.2) % Lactic Acid (0.4-2.2) mmol/L Calcium (8.6-10.2) mg/dL Total Bilirubin (0.1-1.3) mg/dL AST (5-25) IU/L ALT (12-36) U/L Alkaline Phosphatase (56-112) IU/L Total Protein (6.0-8.0) g/dL Albumin (3.5-5.2) g/dL Globulin g/dL Albumin/Globulin Ratio Urine Color Yellow (YELLOW) Urine Appearance Slightly cloudy (CLEAR) Urine pH 5.0 (5.0-6.5) Ur Specific Mcgrann 1.015 (1.010-1.025) Urine Protein Negative (NEGATIVE) mg/dL Urine Glucose (UA) 100 H (NEGATIVE) mg/dL Urine Ketones Negative (NEGATIVE) mg/dL Urine Occult Blood Negative (NEGATIVE) Urine Nitrite Negative (NEGATIVE) Urine Bilirubin Small H (NEGATIVE) Urine Urobilinogen Normal (NEGATIVE) mg/dL Ur Leukocyte Esterase Large H (NEGATIVE) Urine RBC 5-10 (0) Urine WBC 20-30 H (0) Ur Squamous Epith Cells Occasional (NS,R,O) Urine Bacteria Few H (NS) Blood Type Gel Antibody Screen Crossmatch Med Orders - Current: Current Medications Calcitriol (Rocaltrol) 0.5 mcg PO TID [facility] Last Admin: 09/24/17 13:11 Dose: 0.5 mcg Carvedilol (Coreg) 6.25 mg PO BID [facility] Last Admin: 09/24/17 09:50 Dose: 6.25 mg Fluconazole (Diflucan) 200 mg PO DAILY [facility] Last Admin: 09/24/17 09:52 Dose: 200 mg Sodium Chloride (Normal Saline) 1,000 mls @ 125 mls/hr IV ASDIRECTED [facility] Last Admin: 09/24/17 07:14 Dose: 125 mls/hr Sodium Chloride (Normal Saline) 250 mls @ 100 mls/hr IV ASDIRECTED [facility] Last Admin: 09/24/17 05:27 Dose: 100 mls/hr Sodium Chloride (Normal Saline) 250 mls @ 100 mls/hr IV ASDIRECTED [facility] Sodium Chloride (Normal Saline) 250 mls @ 100 mls/hr IV ASDIRECTED [facility] Last Admin: 09/24/17 11:01 Dose: 100 mls/hr Phytonadione (Vitamin K) 100 mcg PO 1300 [facility] Last Admin: 09/24/17 13:10 Dose: 100 mcg Prednisone (Prednisone) 10 mg PO DAILY [facility] Last Admin: 09/24/17 09:52 Dose: 10 mg Sodium Bicarbonate (Sodium Bicarbonate) 650 mg PO BID [facility] Last Admin: 09/24/17 09:50 Dose: 650 mg Sodium Chloride (Saline Flush) 10 ml FLUSH ASDIRECTED PRN PRN Reason: IV Use Last Admin: 09/24/17 09:57 Dose: 10 ml Tacrolimus (Prograf) 1 mg PO Q12H [facility] Last Admin: 09/24/17 09:50 Dose: 1 mg Discontinued Medications Morphine Sulfate (Morphine) 1 mg IVPUSH ONETIME ONE Stop: 09/24/17 12:26 Last Admin: 09/24/17 13:09 Dose: 1 mg Polyethylene Glycol/Electrolytes (Golytely) 4,000 ml PO ONETIME ONE Stop: 09/23/17 17:10 Last Admin: 09/23/17 19:51 Dose: 4,000 ml
--- NOTE | 2017-09-24 18:45 | OR ---
DATE OF OPERATION: 09/24/2017 SURGEON: Jesus Alberto Chin MD PROCEDURE PERFORMED: Colonoscopy. PREOPERATIVE DIAGNOSIS: Gastrointestinal bleed. POSTOPERATIVE DIAGNOSIS: Diverticulosis. INDICATIONS FOR PROCEDURE: This is a 56-year-old male who was admitted yesterday with some bleeding per rectum and apparent evidence for a lower gastrointestinal bleed. He was offered and accepted a colonoscopy as part of his workup. DESCRIPTION OF OPERATION: After an excellent IV sedation was administered, digital rectal exam was performed. No marked abnormality was noted. Flexible colonoscope was inserted and advanced without difficulty to the patient's cecum. The prep was excellent. The following findings were noted: Ascending colon, unremarkable. Transverse colon, scattered diverticula. Descending colon, scattered diverticula. Sigmoid, scattered diverticula. Rectum unremarkable. Colon was deflated and scope was removed. RECOMMENDATIONS: With no overt sign of bleeding at this point with feed, he is allowed to go home. This appears to be a chronic issue with him as he has been had scopes in the past for bleeding with no overt source noted. /[id number] /MODL
--- NOTE | 2017-09-25 14:52 | ER ---
DATE SEEN: 09/23/2017 HISTORY OF PRESENT ILLNESS: This 56-year-old man presented with painless GI bleeding with black stools. These stool's abnormality started 09/27. They are new. No associated fever. He has not experienced previous GI bleed. The patient gets transfusion every 2 weeks for with myeolodysplasia disorder with one in hemoglobins, 1 to 2 units every two weeks. PAST MEDICAL HISTORY: He has had a renal transplant, macrocytic anemia, history of cryptococcal meningitis, diverticulitis, type 2 diabetes, mesenteric artery thrombosis, hypertension, myelodysplastic syndrome with 5q deletion, immunosuppression, and non-STEMI. CURRENT MEDICATIONS: 1. Carvedilol 6.25 mg b.i.d. 2. Calcitriol 0.5 mcg t.i.d. 3. Diflucan 200 mg daily. 4. Vitamin K 100 mcg daily. 5. Prednisone 10 mg daily. 6. Sodium bicarbonate 650 mg b.i.d. 7. Tacrolimus. 8. Prograf 1 mg q.12 hours. 9. Brilinta 90 mg b.i.d. 10.Magnesium oxide 500 mg b.i.d. 11.Aspirin 81 mg daily. REVIEW OF SYSTEMS: The patient feels tired. He has no recent fever. No abdominal trauma. No history of abdominal pain, constipation, or diarrhea. No recent abdominal surgery. MEDICATIONS: No change of medications. He is taking medicines that would affect his chronc capacity; aspirin, vitamin K, Brilinta, and warfarin 1.5 mg daily. Also, prednisone suppresses his immune system and perhaps augment his platelets. Negative chest films. Weakened. GI bleed without any pain or change of his status. PHYSICAL EXAMINATION: HEENT: PERRLA intact. Pharynx without abnormality. GENERAL: The patient is alert. ASSESSMENT AND PLAN: The patient's status is discussed with Dr. Chin and also discussed with Dr. Mcgee. The patient will be admitted for further endoscopic evaluation of the gastrointestinal bleed. Started on Protonix. Blood transfusion will be ordered, 2 units. The patient will be admitted to the hospital for further treatment. Etiology of the patient's gastrointestinal bleed was felt to be proximal to the third part of the duodenum. /[id number] AMY/MILES
== END 2017-09-24 16:15 | disposition home or self-care (01) ==
LOC: FB.ED 13:08 → FB.MS 16:09
PROVIDERS: ADMIT Emergency Medicine; ATTEND Family Medicine
DX: K57.31 Diverticulosis of large intestine without perforation or abscess with bleeding (principal); I12.9 Hypertensive chronic kidney disease with stage 1 through stage 4 chronic kidney disease, or unspecified chronic kidney disease; E11.22 Type 2 diabetes mellitus with diabetic chronic kidney disease; N18.2 Chronic kidney disease, stage 2 (mild); D46.C Myelodysplastic syndrome with isolated del(5q) chromosomal abnormality; Z94.0 Kidney transplant status; D53.9 Nutritional anemia, unspecified; I25.2 Old myocardial infarction; E78.00 Pure hypercholesterolemia, unspecified; K21.9 Gastro-esophageal reflux disease without esophagitis; F41.9 Anxiety disorder, unspecified; K55.069 Acute infarction of intestine, part and extent unspecified; Z87.891 Personal history of nicotine dependence; Z79.01 Long term (current) use of anticoagulants; Z79.82 Long term (current) use of aspirin; Z79.02 Long term (current) use of antithrombotics/antiplatelets; Z79.899 Other long term (current) drug therapy
CPT/HCPCS: 36415; 36430; 45378; 80053; 81001; 83036; 83605; 85025; 85610; 85730; 86850; 86900; 86901; 86920; 86922; 87086; 96361; 96374; 99284; A9270; G0378; J2250; J2270; J2704; J7040; J7050; J7120; P9016; P9017; J3490; J7030

== ENCOUNTER 2017-11-23 11:41 | Emergency (ER) | payer MEDICARE, MEDICAID ==
--- NOTE | 2017-11-23 12:05 | EDM.PDOC ---
ED HPI GENERAL MEDICAL PROBLEM - General Chief Complaint: General Stated Complaint: WEAK AND TIRED Time Seen by Provider: 11/23/17 11:42 Source of Information: Reports: Patient History Limitations: Reports: Other (poor historian) - History of Present Illness INITIAL COMMENTS - FREE TEXT/NARRATIVE: 57 y.o.w m with ESRD, S/P Kidney transplant, came to the ed because of weakness , Pt's last HGB was 6.2 3 weeks ago when he received 2 units of PRBC. Now, he fees again like 3 weeks ago, He denied blood in his stool, Pt was on EPO before which did not help is strength. No N/V/D no dizziness, no CP, just feeling week. Pt is a poor historian and no family is present. BP 128/78 RR 20 Pulse 85 Pulse ox 100% on RA temp 38.7 Onset Date: 11/22/17 Onset Time: 19:15 Duration: Day(s): Location: Reports: Generalized Quality: Reports: Other (weak) Severity: Moderate Improves with: Reports: None Worsens with: Reports: None Context: Reports: Other (S/P kidney transplant) Associated Symptoms: Reports: Weakness - Related Data Allergies Allergy/AdvReac Type Severity Reaction Status Date / Time No Known Allergies Allergy Verified 11/23/17 11:57 Home Meds: Home Meds Cholecalciferol (Vitamin D3) [Vitamin D3] 1,000 unit PO DAILY 06/07/15 [History] Calcitriol [Rocaltrol] 0.5 mcg PO TID 08/22/15 [History] Magnesium Oxide [Magnesium] 500 mg PO TID 07/23/17 [History] Sodium Bicarbonate 650 mg PO BID 07/23/17 [History] Tacrolimus 1 mg PO Q12H 07/23/17 [History] Fluconazole [Diflucan] 200 mg PO DAILY #30 tablet 07/25/17 [Rx] Aspirin 81 mg PO DAILY 09/17/17 [History] Carvedilol [Coreg] 6.25 mg PO BID 09/17/17 [History] Ticagrelor [Brilinta] 90 mg PO BID 09/17/17 [History] predniSONE [Prednisone] 10 mg PO DAILY 09/17/17 [History] Past Medical History HEENT History: Reports: Impaired Vision Other HEENT History: Pt wears glasses Cardiovascular History: Reports: High Cholesterol, Hypertension, AR, Other (See Below) Other Cardiovascular History: Pt reports being taken off HTN medication while his is taking antibiotics for recent hospitalization for viral menigitis.(05/13/15 ) (also "had AR 09/2017 went to [facility] they put in a stent" this recorded on 09/14) Respiratory History: Reports: None Gastrointestinal History: Reports: Cholelithiasis, Diverticulosis, GERD Genitourinary History: Reports: Dialysis, Renal Disease, UTI, Recurrent, Other ( See Below) Other Genitourinary History: kidney transplant 17 years ago (2001) pts fistula was removed early may 2017 from left arm Musculoskeletal History: Reports: None Psychiatric History: Reports: Addiction, Anxiety, Other (See Below) Other Psychiatric History: gets mildly depressed. POST ALCOHOLIC 1998 Endocrine/Metabolic History: Reports: Diabetes, Type II, Hypoparathyroidism Hematologic History: Reports: Anemia, Blood Transfusion(s) Other Hematologic History: myelodysplastic syndrome Immunologic History: Reports: Solid Organ Transplant Other Immunologic History: kidney transplant 2001 - Infectious Disease History Infectious Disease History: Reports: Chicken Pox, Measles, Mumps - Past Surgical History Head Surgeries/Procedures: Reports: None Cardiovascular Surgical History: Reports: Carotid Stents Other Cardiovascular Surgeries/Procedures: stent placed end of 09/14/2017 GI Surgical History: Reports: Appendectomy, Cholecystectomy Male Surgical History: Reports: Other (See Below) Other Male Surgeries/Procedures: kidney transplant 17 years ago Musculoskeletal Surgical History: Reports: Hip Replacement Other Musculoskeletal Surgeries/Procedures:: both hips-replaced Social & Family History - Family History Family Medical History: Noncontributory Cardiac: Reports: Other (See Below) Other Cardiac Family History: Brother had bypass OBGYN: Reports: Endocrine/Metabolic: Reports: Diabetes, type II - Caffeine Use Caffeine Use: Reports: Coffee Other Caffeine Use: 2-3 cups per day ED ROS GENERAL - Review of Systems Review Of Systems: See Below Constitutional: Reports: Weakness HEENT: Reports: No Symptoms Respiratory: Reports: No Symptoms Cardiovascular: Reports: No Symptoms Endocrine: Reports: No Symptoms GI/Abdominal: Reports: No Symptoms : Reports: Dysuria Musculoskeletal: Reports: No Symptoms Skin: Reports: No Symptoms Neurological: Reports: No Symptoms Psychiatric: Reports: No Symptoms Hematologic/Lymphatic: Reports: No Symptoms Immunologic: Reports: No Symptoms ED EXAM, GENERAL - Physical Exam Exam: See Below Exam Limited By: No Limitations General Appearance: Alert, WD/WN, Thin Eye Exam: Bilateral Eye: Normal Inspection Ears: Normal External Exam Ear Exam: Bilateral Ear: Auricle Normal Nose: Normal Inspection Throat/Mouth: Normal Inspection, Normal Lips, Normal Voice, No Airway Compromise Head: Atraumatic, Normocephalic Neck: Normal Inspection, Supple, Non-Tender Respiratory/Chest: No Respiratory Distress, Lungs Clear, Normal Breath Sounds, No Accessory Muscle Use, Chest Non-Tender Cardiovascular: Normal Peripheral Pulses, Regular Rate, Rhythm, No Edema, No Murmur GI/Abdominal: Normal Bowel Sounds, Soft (Male) Exam: Deferred Rectal (Males) Exam: Deferred Back Exam: Normal Inspection, Full Range of Motion Extremities: Normal Inspection, Normal Range of Motion, Non-Tender, No Pedal Edema Neurological: Alert, Oriented, CN II-XII Intact, Normal Cognition, Normal Gait Psychiatric: Normal Affect, Normal Mood Skin Exam: Warm, Dry, Intact, Normal Color, No Rash Lymphatic: No Adenopathy Course - Vital Signs Text/Narrative:: 57 y.o.w m with ESRD, S/P Kidney transplant, came to the ed because of weakness , Pt's last HGB was 6.2 3 weeks ago when he received 2 units of PRBC. Now, he fees again like 3 weeks ago, He denied blood in his stool, Pt was on EPO before which did not help is strength. No N/V/D no dizziness, no CP, just feeling week. Pt is a poor historian and no family is present. BP 128/78 RR 20 Pulse 85 Pulse ox 100% on RA temp 38.7 Impression: Severe anemia. S/P kideney transplant, UTI 1.21 pm :Consultation: Dr. Hu, [facility]: Accepted pt for admissionand further W/A, however, pt refused Pt refused to be admitted, refused further W/U Tx: 2 units of PRBC, Levoquin Reexam: Improved Plan: D/C home wit instructions. Last Recorded V/S: Last Vital Signs Temp 36.3 C 11/23/17 11:42 Pulse 65 11/23/17 11:42 Resp 17 11/23/17 11:42 BP 124/73 11/23/17 11:42 Pulse Ox 100 11/23/17 11:42 - Orders/Labs/Meds Orders: Active Orders 24 hr Category Date Time Status RED BLOOD CELLS LP [BBK] Stat Lab 11/23/17 12:15 Received TYPE AND SCREEN [BBK] Stat Lab 11/23/17 12:15 Received UA W/MICROSCOPIC [URIN] Stat Lab 11/23/17 12:15 Ordered Sodium Chloride 0.9% [Normal Saline] 250 ml Med 11/23/17 13:15 Active IV ASDIRECTED Transfuse PRBC [Transfuse Red Blood Cells] [COMM] Stat Oth 11/23/17 13:04 Ordered Medication Orders Sodium Chloride (Normal Saline) 250 mls @ 100 mls/hr IV ASDIRECTED LARON Labs: Laboratory Tests 11/23/17 11/23/17 11/23/17 Range/Units 12:15 12:15 12:15 WBC 3.2 L (4.5-12.0) X10-3/uL RBC 1.82 L (4.30-5.75) x10(6)uL Hgb 6.5 L* (11.5-15.5) g/dL Hct 17.8 L* (30.0-51.3) % MCV 97.6 H (80-96) fL MCH 35.4 H (27.7-33.6) pg MCHC 36.3 H (32.2-35.4) g/dL RDW 13.6 (11.5-15.5) % Plt Count 197 (125-369) X10(3)uL MPV 10.5 H (7.4-10.4) fL Neut % (Auto) 69.7 (46-82) % Lymph % (Auto) 19.5 (13-37) % Lea % (Auto) 6.5 (4-12) % Eos % (Auto) 3 (1.0-5.0) % Baso % (Auto) 1 (0-2) % Neut # (Auto) 2.3 (1.6-8.3) # Lymph # (Auto) 0.6 (0.6-5.0) # Lea # (Auto) 0.2 (0.0-1.3) # Eos # (Auto) 0.1 (0.0-0.8) # Baso # (Auto) 0.0 (0.0-0.2) # PT 9.9 (8.7-11.1) INR 1.02 (0.89-1.13) Sodium (135-145) mmol/L Potassium (3.5-5.3) mmol/L Chloride (100-110) mmol/L Carbon Dioxide (21-32) mmol/L BUN (7-18) mg/dL Creatinine (0.70-1.30) mg/dL Est Cr Clr Drug Dosing mL/min Estimated GFR (MDRD) (>60) BUN/Creatinine Ratio (9-20) Glucose (80-116) mg/dL Lactic Acid (0.4-2.2) mmol/L Calcium (8.6-10.2) mg/dL Urine Color Yellow (YELLOW) Urine Appearance Slightly cloudy (CLEAR) Urine pH 7.0 H (5.0-6.5) Ur Specific [place] 1.015 (1.010-1.025) Urine Protein Negative (NEGATIVE) mg/dL Urine Glucose (UA) 100 H (NEGATIVE) mg/dL Urine Ketones Negative (NEGATIVE) mg/dL Urine Occult Blood Negative (NEGATIVE) Urine Nitrite Negative (NEGATIVE) Urine Bilirubin Negative (NEGATIVE) Urine Urobilinogen Normal (NEGATIVE) mg/dL Ur Leukocyte Esterase Large H (NEGATIVE) Urine RBC 0-5 (0) Urine WBC 50-75 H (0) Ur Squamous Epith Cells Few H (NS,R,O) Urine Bacteria Moderate H (NS) 18 11/23/17 Range/Units 12:15 12:15 WBC (4.5-12.0) X10-3/uL RBC (4.30-5.75) x10(6)uL Hgb (11.5-15.5) g/dL Hct (30.0-51.3) % MCV (80-96) fL MCH (27.7-33.6) pg MCHC (32.2-35.4) g/dL RDW (11.5-15.5) % Plt Count (125-369) X10(3)uL MPV (7.4-10.4) fL Neut % (Auto) (46-82) % Lymph % (Auto) (13-37) % Lea % (Auto) (4-12) % Eos % (Auto) (1.0-5.0) % Baso % (Auto) (0-2) % Neut # (Auto) (1.6-8.3) # Lymph # (Auto) (0.6-5.0) # Lea # (Auto) (0.0-1.3) # Eos # (Auto) (0.0-0.8) # Baso # (Auto) (0.0-0.2) # PT (8.7-11.1) INR (0.89-1.13) Sodium 140 (135-145) mmol/L Potassium 3.8 (3.5-5.3) mmol/L Chloride 104 (100-110) mmol/L Carbon Dioxide 29 (21-32) mmol/L BUN 34 H D (7-18) mg/dL Creatinine 1.6 H (0.70-1.30) mg/dL Est Cr Clr Drug Dosing 45.41 mL/min Estimated GFR (MDRD) 45 L (>60) BUN/Creatinine Ratio 21.3 H (9-20) Glucose 241 H (80-116) mg/dL Lactic Acid 1.4 (0.4-2.2) mmol/L Calcium 9.3 (8.6-10.2) mg/dL Urine Color (YELLOW) Urine Appearance (CLEAR) Urine pH (5.0-6.5) Ur Specific [place] (1.010-1.025) Urine Protein (NEGATIVE) mg/dL Urine Glucose (UA) (NEGATIVE) mg/dL Urine Ketones (NEGATIVE) mg/dL Urine Occult Blood (NEGATIVE) Urine Nitrite (NEGATIVE) Urine Bilirubin (NEGATIVE) Urine Urobilinogen (NEGATIVE) mg/dL Ur Leukocyte Esterase (NEGATIVE) Urine RBC (0) Urine WBC (0) Ur Squamous Epith Cells (NS,R,O) Urine Bacteria (NS) Meds: Medications Generic Name Dose Route Start Last Admin Trade Name Freq PRN Reason Stop Dose Admin Sodium Chloride 250 mls @ 100 mls/hr 11/23/17 13:15 Normal Saline IV ASDIRECTED LARON Departure - Departure Time of Disposition: 03:00 Disposition: Home, Self-Care 01 Condition: Good Clinical Impression: Anemia Qualifiers: Anemia type: due to chronic kidney disease - Discharge Information - My Orders Last 24 Hours: My Active Orders 11/23/17 12:15 RED BLOOD CELLS LP [BBK] Stat TYPE AND SCREEN [BBK] Stat UA W/MICROSCOPIC [URIN] Stat 11/23/17 13:04 Transfuse PRBC [Transfuse Red Blood Cells] [COMM] Stat 11/23/17 13:15 Sodium Chloride 0.9% [Normal Saline] 250 ml IV ASDIRECTED - Assessment/Plan Last 24 Hours: My Active Orders 11/23/17 12:15 RED BLOOD CELLS LP [BBK] Stat TYPE AND SCREEN [BBK] Stat UA W/MICROSCOPIC [URIN] Stat 11/23/17 13:04 Transfuse PRBC [Transfuse Red Blood Cells] [COMM] Stat 11/23/17 13:15 Sodium Chloride 0.9% [Normal Saline] 250 ml IV ASDIRECTED
[2017-11-23] MEDS ORDERED: Sodium Chloride 0.9% 250 ML IV SCH ×2 (13:15→15:00)
[2017-11-23] MEDS ORDERED: Levofloxacin 250 MG Tab PO ONE (13:40)
[2017-11-23] MEDS ORDERED: Levofloxacin 250 MG Tab ONE (18:12)
[2017-11-23 20:41] VITALS: BP 146/71
== END 2017-11-23 21:00 | disposition home or self-care (01) ==
LOC: FB.ED 11:41 → FB.BLOODTR 11:41 → FB.ED 13:35 → FB.BLOODTR 14:00 → FB.MS 14:00 → FB.ED 14:00 → EDSTATUS 14:12 → FB.BLOODTR 21:00 → FB.MS 21:00
DX: I12.0 Hypertensive chronic kidney disease with stage 5 chronic kidney disease or end stage renal disease (principal); N18.6 End stage renal disease; D63.1 Anemia in chronic kidney disease; N39.0 Urinary tract infection, site not specified; E78.00 Pure hypercholesterolemia, unspecified; E11.22 Type 2 diabetes mellitus with diabetic chronic kidney disease; Z94.0 Kidney transplant status
CPT/HCPCS: 36415; 36430; 80048; 81001; 83605; 85025; 85610; 86850; 86900; 86901; 86920; 86922; 87086; 99284; A9270; J7050; P9016

== ENCOUNTER 2018-07-05 18:48 | Inpatient (IN) | payer MEDICARE, MEDICAID ==
[2018-07-05] MEDS ORDERED: Calcium Gluconate 10% 1 GM/10 ML SDV IVPUSH ONE (19:46)
[2018-07-05] MEDS ORDERED: Insulin Regular, Human 100 Units/ML 3 ML Vial IV ONE (19:46)
[2018-07-05] MEDS: Sodium Chloride 0.9% 10 ML Syringe FLUSH PRN (19:50)
[2018-07-05] MEDS ORDERED: Sodium Chloride 0.9% 1,000 ML IV SCH (20:00)
--- NOTE | 2018-07-05 20:02 | EDM.PDOC ---
ED HPI GENERAL MEDICAL PROBLEM - General Chief Complaint: General Stated Complaint: SOB, WEAK Time Seen by Provider: 07/05/18 19:56 Source of Information: Reports: Patient History Limitations: Reports: No Limitations - History of Present Illness INITIAL COMMENTS - FREE TEXT/NARRATIVE: 57 yo male with complaints of fatigue,SOB,weakness. Progressive over a few days. Has a h/o MDS,with multiple transfusions;Type 2 DM,CKD,Ankle pain. Also has a previous h/o kidney transplant several years ago. I saw him in the clinic yesterday,at that point,his hgb was 8.4 g/dl. SOB is mild,worse with exertion.Denies any chest pain. - Related Data Allergies Allergy/AdvReac Type Severity Reaction Status Date / Time No Known Allergies Allergy Verified 07/05/18 19:00 Home Meds: Home Meds Cholecalciferol (Vitamin D3) [Vitamin D3] 1,000 unit PO DAILY 06/07/15 [History] Calcitriol [Rocaltrol] 0.5 mcg PO TID 08/22/15 [History] Magnesium Oxide [Magnesium] 500 mg PO TID 07/23/17 [History] Sodium Bicarbonate 650 mg PO BID 07/23/17 [History] Tacrolimus 1 mg PO 0900 07/23/17 [History] Aspirin 81 mg PO 1500 09/17/17 [History] Carvedilol [Coreg] 6.25 mg PO BID 09/17/17 [History] predniSONE [Prednisone] 10 mg PO DAILY 09/17/17 [History] Acetaminophen [Tylenol] 325 mg PO Q4H PRN 02/24/18 [History] Isosorbide Mononitrate [Imdur] 30 mg PO DAILY 02/24/18 [History] Tacrolimus [Prograf] 0.5 mg PO BEDTIME 02/24/18 [History] glipiZIDE [Glucotrol] 5 mg PO DAILY 02/24/18 [History] traMADol [Ultram] 50 mg PO Q6H PRN #20 tab 04/18/18 [Rx] Methocarbamol [Robaxin] 750 mg PO Q8H PRN #20 tab 04/30/18 [Rx] Cefuroxime Axetil [Ceftin] 250 mg PO BID #14 tablet 05/13/18 [Rx] Insulin Aspart [NovoLOG] 9 unit SQ TID 07/05/18 [History] Past Medical History HEENT History: Reports: Impaired Vision Other HEENT History: Pt wears glasses Cardiovascular History: Reports: High Cholesterol, Hypertension, OR, Stents, Other (See Below) Other Cardiovascular History: viral menigitis 2015 (also "had OR 09/2017 went to [place] they put in a stent" this recorded on 09/14/17) Respiratory History: Reports: SOB Gastrointestinal History: Reports: Cholelithiasis, Colon Polyp, Diverticulosis, GERD Genitourinary History: Reports: Renal Disease, UTI, Recurrent, Other (See Below) Other Genitourinary History: kidney transplant (2001) pts fistula was removed early may 2017 from left arm Musculoskeletal History: Reports: Back Pain, Chronic Neurological History: Reports: Other (See Below) Other Neuro History: occ headache when blood is low Psychiatric History: Reports: Addiction, Anxiety, Depression, Other (See Below) Other Psychiatric History: gets mildly depressed. POST ALCOHOLIC 1998 Endocrine/Metabolic History: Reports: Diabetes, Type II, Hypoparathyroidism Hematologic History: Reports: Anemia, Blood Transfusion(s) Other Hematologic History: myelodysplastic syndrome Immunologic History: Reports: Solid Organ Transplant Other Immunologic History: kidney transplant 2001 Dermatologic History: Reports: None - Infectious Disease History Infectious Disease History: Reports: Chicken Pox - Past Surgical History Head Surgeries/Procedures: Reports: None GI Surgical History: Reports: Appendectomy, Cholecystectomy, Colonoscopy Male Surgical History: Reports: Other (See Below) Other Male Surgeries/Procedures: kidney transplant in 2001 Neurological Surgical History: Reports: None Musculoskeletal Surgical History: Reports: Hip Replacement Other Musculoskeletal Surgeries/Procedures:: both hips-replaced Social & Family History - Family History Family Medical History: Noncontributory Cardiac: Reports: Other (See Below) Other Cardiac Family History: Brother had bypass OBGYN: Reports: Endocrine/Metabolic: Reports: Diabetes, type II - Tobacco Use Smoking Status *Q: Never Smoker - Caffeine Use Caffeine Use: Reports: Coffee Other Caffeine Use: 2-3 cups per day - Recreational Drug Use Recreational Drug Use: No ED ROS GENERAL - Review of Systems Review Of Systems: ROS reveals no pertinent complaints other than HPI. ED EXAM, GENERAL - Physical Exam Exam: See Below Exam Limited By: No Limitations General Appearance: Alert, WD/WN Ear Exam: Bilateral Ear: Auricle Normal, Canal Normal, TM normal Nose: Normal Inspection, Normal Mucosa, No Blood Throat/Mouth: Normal Inspection, Normal Lips, Normal Teeth, Normal Gums, Normal Oropharynx, Normal Voice, No Airway Compromise Head: Atraumatic, Normocephalic Neck: Normal Inspection, Supple Respiratory/Chest: No Respiratory Distress, Lungs Clear Cardiovascular: Normal Peripheral Pulses GI/Abdominal: Normal Bowel Sounds, Distended. No: Tender Extremities: Normal Inspection Neurological: Alert, Oriented Psychiatric: Normal Affect Course - Vital Signs Last Recorded V/S: Last Vital Signs Temp 98.0 F 07/05/18 18:55 Pulse 71 07/05/18 18:55 Resp 16 07/05/18 18:55 BP 115/69 07/05/18 18:55 Pulse Ox 99 07/05/18 18:55 - Orders/Labs/Meds Orders: Active Orders 24 hr Category Date Time Status Accu Check [Blood Glucose Check, Bedside] [RC] ONETIME Care 07/05/18 18:58 Active CXR [Chest 2V] [CR] Stat Exams 07/05/18 19:04 Ordered PRO B-TYPE NATRIUR PEPT,BNPPRO [CHEM] Stat Lab 07/05/18 19:15 Received TYPE AND SCREEN [BBK] Stat Lab 07/05/18 19:15 Received Sodium Chloride 0.9% [Normal Saline] 1,000 ml Med 07/05/18 20:00 Active IV ASDIRECTED EKG 12 Lead [EK] Routine Ther 07/05/18 19:04 Ordered Medication Orders Sodium Chloride (Normal Saline) 1,000 mls @ 999 mls/hr IV ASDIRECTED LARON Labs: Laboratory Tests 07/05/18 07/05/18 07/05/18 Range/Units 18:59 19:15 19:15 WBC 4.0 L (4.5-12.0) X10-3/uL RBC 2.82 L (4.30-5.75) x10(6)uL Hgb 8.0 L (11.5-15.5) g/dL Hct 23.9 L (30.0-51.3) % MCV 84.6 (80-96) fL MCH 28.2 (27.7-33.6) pg MCHC 33.3 (32.2-35.4) g/dL RDW 15.1 (11.5-15.5) % Plt Count 119 L (125-369) X10(3)uL MPV 8.9 (7.4-10.4) fL Neut % (Auto) 78.9 (46-82) % Lymph % (Auto) 13.6 (13-37) % [place] % (Auto) 5.9 (4-12) % Eos % (Auto) 1 (1.0-5.0) % Baso % (Auto) 1 (0-2) % Neut # (Auto) 3.3 (1.6-8.3) # Lymph # (Auto) 0.5 L (0.6-5.0) # [place] # (Auto) 0.2 (0.0-1.3) # Eos # (Auto) 0.0 (0.0-0.8) # Baso # (Auto) 0.0 (0.0-0.2) # Sodium 128 L (135-145) mmol/L Potassium 6.7 H* D (3.5-5.3) mmol/L Chloride 99 L (100-110) mmol/L Carbon Dioxide 18 L (21-32) mmol/L BUN 50 H (7-18) mg/dL Creatinine 2.1 H* (0.70-1.30) mg/dL Est Cr Clr Drug Dosing 34.60 mL/min Estimated GFR (MDRD) 33 L (>60) BUN/Creatinine Ratio 23.8 H (9-20) Glucose 365 H (80-116) mg/dL POC Glucose 376 H (80-116) mg/dL Calcium 7.9 L D (8.6-10.2) mg/dL Total Bilirubin 0.3 (0.1-1.3) mg/dL AST 26 H D (5-25) IU/L ALT 77 H D (12-36) U/L Alkaline Phosphatase 231 H (56-112) IU/L Troponin I (<0.017-0.056) ng/mL Total Protein 7.1 (6.0-8.0) g/dL Albumin 2.8 L (3.5-5.2) g/dL Globulin 4.3 g/dL Albumin/Globulin Ratio 0.7 02/23/19 Range/Units 19:15 WBC (4.5-12.0) X10-3/uL RBC (4.30-5.75) x10(6)uL Hgb (11.5-15.5) g/dL Hct (30.0-51.3) % MCV (80-96) fL MCH (27.7-33.6) pg MCHC (32.2-35.4) g/dL RDW (11.5-15.5) % Plt Count (125-369) X10(3)uL MPV (7.4-10.4) fL Neut % (Auto) (46-82) % Lymph % (Auto) (13-37) % [place] % (Auto) (4-12) % Eos % (Auto) (1.0-5.0) % Baso % (Auto) (0-2) % Neut # (Auto) (1.6-8.3) # Lymph # (Auto) (0.6-5.0) # [place] # (Auto) (0.0-1.3) # Eos # (Auto) (0.0-0.8) # Baso # (Auto) (0.0-0.2) # Sodium (135-145) mmol/L Potassium (3.5-5.3) mmol/L Chloride (100-110) mmol/L Carbon Dioxide (21-32) mmol/L BUN (7-18) mg/dL Creatinine (0.70-1.30) mg/dL Est Cr Clr Drug Dosing mL/min Estimated GFR (MDRD) (>60) BUN/Creatinine Ratio (9-20) Glucose (80-116) mg/dL POC Glucose (80-116) mg/dL Calcium (8.6-10.2) mg/dL Total Bilirubin (0.1-1.3) mg/dL AST (5-25) IU/L ALT (12-36) U/L Alkaline Phosphatase (56-112) IU/L Troponin I < 0.017 L (<0.017-0.056) ng/mL Total Protein (6.0-8.0) g/dL Albumin (3.5-5.2) g/dL Globulin g/dL Albumin/Globulin Ratio Meds: Medications Generic Name Dose Route Start Last Admin Trade Name Freq PRN Reason Stop Dose Admin Sodium Chloride 1,000 mls @ 999 mls/hr 07/05/18 20:00 Normal Saline IV ASDIRECTED LARON Discontinued Medications Generic Name Dose Route Start Last Admin Trade Name Oskar PRN Reason Stop Dose Admin Calcium Gluconate 1 gm 07/05/18 19:46 Calcium Gluconate IVPUSH 07/05/18 19:47 ONETIME ONE Insulin Human Regular 15 unit 07/05/18 19:46 Humulin R IV 07/05/18 19:47 ONETIME ONE Departure - Departure Time of Disposition: 20:04 Disposition: Admitted As Inpatient 65 Clinical Impression: Anemia, macrocytic, Hyponatremia - Discharge Information Referrals: Du Andersen MD [Primary Care Provider] - - Problem List & Annotations (1) Hyperkalemia SNOMED Code(s): 24814467 Code(s): E87.5 - HYPERKALEMIA Status: Acute Current Visit: Yes (2) HENOK (acute kidney injury) SNOMED Code(s): 99953017 Code(s): N17.9 - ACUTE KIDNEY FAILURE, UNSPECIFIED Status: Acute Current Visit: Yes (3) Diabetes type 2, uncontrolled SNOMED Code(s): 15329004, 167259483 Code(s): E11.65 - TYPE 2 DIABETES MELLITUS WITH HYPERGLYCEMIA Status: Acute Current Visit: Yes Qualifiers: Glycemic state: with hyperglycemia Qualified Code(s): E11.65 - Type 2 diabetes mellitus with hyperglycemia (4) MDS (myelodysplastic syndrome) SNOMED Code(s): 013358063 Code(s): D46.9 - MYELODYSPLASTIC SYNDROME, UNSPECIFIED Status: Acute Current Visit: Yes (5) Anemia SNOMED Code(s): 311478613 Code(s): D64.9 - ANEMIA, UNSPECIFIED Status: Acute Current Visit: Yes - Problem List Review Problem List Initiated/Reviewed/Updated: Yes - My Orders Last 24 Hours: My Active Orders 07/05/18 18:58 Accu Check [Blood Glucose Check, Bedside] [RC] ONETIME 07/05/18 19:04 CXR [Chest 2V] [CR] Stat EKG 12 Lead [EK] Routine 07/05/18 19:15 PRO B-TYPE NATRIUR PEPT,BNPPRO [CHEM] Stat TYPE AND SCREEN [BBK] Stat 07/05/18 20:00 Sodium Chloride 0.9% [Normal Saline] 1,000 ml IV ASDIRECTED - Assessment/Plan Last 24 Hours: My Active Orders 07/05/18 18:58 Accu Check [Blood Glucose Check, Bedside] [RC] ONETIME 07/05/18 19:04 CXR [Chest 2V] [CR] Stat EKG 12 Lead [EK] Routine 07/05/18 19:15 PRO B-TYPE NATRIUR PEPT,BNPPRO [CHEM] Stat TYPE AND SCREEN [BBK] Stat 07/05/18 20:00 Sodium Chloride 0.9% [Normal Saline] 1,000 ml IV ASDIRECTED Plan: I will give him a bolus of NS,insulin and calcium gluconate.Repeat potassium at 10.00 pm and in Am. Admit to a monitored bed.
[2018-07-05] MEDS: Sodium Chloride 0.9% 1,000 ML IV SCH (21:43)
[2018-07-05] MEDS ORDERED: traMADol 50 MG Tab PO PRN (22:01)
[2018-07-05] MEDS ORDERED: Methocarbamol 750 MG Tab PO PRN (22:01)
[2018-07-05] MEDS: TACROLIMUS 0.5 MG PO SCH (23:26)
[2018-07-06] MEDS: Sodium Chloride 0.9% 1,000 ML IV SCH (05:46)
[2018-07-06] MEDS ORDERED: Cefuroxime 250 MG Tab PO SCH (09:00)
[2018-07-06] MEDS ORDERED: Tacrolimus 1 MG Cap PO SCH (09:00)
[2018-07-06] MEDS ORDERED: Sodium Polystyrene Sulfonate 15 GM/60 ML Susp 60 ML Bot PO ONE ×2 (09:15→09:59)
[2018-07-06] MEDS ORDERED: Sodium Chloride 0.9% 250 ML IV SCH (09:30)
[2018-07-06] MEDS: Carvedilol 6.25 MG Tab PO SCH ×2 (09:40→17:23)
[2018-07-06] MEDS: Isosorbide Mononitrate 30 MG Tab.ER PO SCH (09:41)
[2018-07-06] MEDS: Calcitriol 0.25 MCG Cap PO SCH ×4 (09:42→21:02)
[2018-07-06] MEDS: Cholecalciferol (Vitamin D3) 1,000 Unit Tab PO SCH (09:42)
[2018-07-06] MEDS: Sodium Bicarbonate 650 MG Tab PO SCH ×2 (09:42→21:02)
[2018-07-06] MEDS: Insulin Lispro 100 Unit/ML 3 ML KwikPen SUBCUT SCH ×3 (10:07→18:02)
[2018-07-06] MEDS: Sodium Chloride 0.9% 10 ML Syringe FLUSH PRN ×2 (10:50→17:23)
--- NOTE | 2018-07-06 10:56 | HP ---
ADMISSION DATE: 07/05/2018 REASON FOR VISIT: Weakness, fatigue, hyperkalemia, low sugar. HISTORY OF PRESENT ILLNESS: Hollis Barrera is a 57-year-old, male, who was seen at [facility] by Dr. Andersen. Presented with weakness, fatigue, lethargy, and tingling. He was found to be dehydrated and had a markedly elevated potassium at 6.7, creatinine 2.1, sodium 128. Repeat this morning 137 sodium, 6.0 potassium, GFR 42. Feeling better this morning. Long-standing history of diabetes dating back to 2001, on oral agents and premeal NovoLog. MEDICATIONS: On admission include: 1. Prednisone 10 mg daily, kidney transplant rejection prevention. 2. Acetaminophen p.r.n. 3. Aspirin 81 mg one p.o. daily. 4. Calcitriol 0.25 mcg one p.o. daily, renal transplant. 5. Carvedilol 6.25 mg b.i.d., blood pressure, heart. 6. Calcium 1000 units. 7. Vitamin D3 1000 units daily. 8. NovoLog 9 units premeal. 9. Isosorbide 30 mg one p.o. daily, heart. 10.Magnesium oxide 500 mg 1 p.o. t.i.d., renal transplant. 11.Robaxin 750 q.8 hours, muscle relaxant. 12.Sodium bicarbonate 650 one p.o. b.i.d., renal transplant. 13.Prograf 0.5 mg at bedtime, renal transplant. 14.Tacrolimus 0.5 mg two daily. 15.Tramadol 50 q.i.d. p.r.n. for pain.. ALLERGIES: No medication, environmental, or latex allergies. PAST MEDICAL HISTORY: Significant for multiple surgeries including thyroidectomy, bilateral hip arthroplasty, appendectomy, cholecystectomy, and kidney transplant. Had a complicated right ankle fracture with plates, no other operative procedures, hospitalizations, unusual childhood diseases. Treated diabetes and hypertension, chronic disease. SOCIAL HISTORY: Retired, disabled, previously , . No biological children. Nonsmoker, chews occasionally. No alcohol consumption. FAMILY HISTORY: Dad at 58 of brain cancer. Mom at age 26 of complications of childbirth. Two sisters, 3 brothers. Also has 1 stepbrother and 1 stepsister. Positive family history of diabetes. REVIEW OF SYSTEMS: CONSTITUTIONAL: Feeling well. Generally fatigued. EYES: Sees well. EARS: Hears well. Difficulty in crowds. OROPHARYNX: Intact dentition. CHEST: No cough, wheeze, or congestion. CARDIOVASCULAR: Denies chest pain, palpitations, or syncope. GI: Regular predictable stools, no blood in stools. GENITOURINARY: Good voiding pattern. ORTHOPEDIC: Generalized joint complaints. ENDOCRINE: No excessive thirst, urination. ALLERGY: No chronic cough. PSYCHIATRIC: Mood stable. PHYSICAL EXAMINATION: VITAL SIGNS: 36.4, 66, 128/76, 16, and 97%. GENERAL: Cooperative, conversant, in good condition. HEENT: Reveal funduscopic benign. Bright TMs. Clear nasal discharge. Mouth and oropharynx clear. Tongue midline. Good gag reflex. NECK: Benign. Thyroid small. No adenopathy. No carotid bruits. CHEST: Clear in all lung bar. No adventitious sounds. HEART: On auscultation, no ectopy or murmur. BREASTS: Normal male breasts. ABDOMEN: Benign. Surgical scars noted. AND RECTAL: Deferred. EXTREMITIES: Well perfused. Venous stasis changes. LABORATORY STUDIES: On admission, hemoglobin 8.0, white count 4000, platelets 119. Renal function reviewed. BNP 2402. ASSESSMENT: 1. Hyperkalemia. 2. Dehydration. 3. Uncontrolled diabetes. PLAN: IV fluids were given, insulin was given, potassium has dropped from 6.7 to 6 last evening and 6.0 this morning. Kidney function remained stable. Hemoglobin fell from 8 to 6.9. PLAN: We will continue to combat hyperkalemia, fluids hydration, Kayexalate, medications adjustment accordingly. We will give 2 units of blood. Observation and treatment accordingly. /[id number] /MILES
[2018-07-06] MEDS ORDERED: Aspirin 81 MG Tab.Chew PO SCH (15:00)
[2018-07-06 16:06] LABS: HEMOGLOBIN A1C 8.8 % (4.5-6.2)
[2018-07-06] MEDS: Acetaminophen 325 MG Tab PO PRN (17:14)
[2018-07-06] MEDS ORDERED: Tacrolimus 0.5 MG Cap PO SCH (21:00)
[2018-07-06] MEDS: Magnesium Oxide 400 MG Tab PO SCH (21:02)
[2018-07-06] MEDS: TACROLIMUS 0.5 MG PO SCH (21:23)
[2018-07-06] MEDS: Non-Formulary Medication 1 Each (Magnesium Oxide [Magnesium] 500 MG) PO SCH (22:27)
[2018-07-07] MEDS: Acetaminophen 325 MG Tab PO PRN (01:54)
[2018-07-07] MEDS ORDERED: TACROLIMUS 0.5 MG PO SCH (09:00)
[2018-07-07] MEDS: Carvedilol 6.25 MG Tab PO SCH (09:20)
[2018-07-07] MEDS: Cholecalciferol (Vitamin D3) 1,000 Unit Tab PO SCH (09:21)
[2018-07-07] MEDS: Calcitriol 0.25 MCG Cap PO SCH ×2 (09:21→14:06)
[2018-07-07] MEDS: Magnesium Oxide 400 MG Tab PO SCH ×2 (09:21→14:05)
[2018-07-07] MEDS: Sodium Bicarbonate 650 MG Tab PO SCH (09:22)
[2018-07-07] MEDS: Isosorbide Mononitrate 30 MG Tab.ER PO SCH (09:22)
[2018-07-07] MEDS: Insulin Lispro 100 Unit/ML 3 ML KwikPen SUBCUT SCH ×2 (09:28→12:43)
[2018-07-07 12:36] VITALS: BP 142/83
--- NOTE | 2018-07-07 15:54 | DISCH ---
DISCHARGE DATE: 07/07/2018 HISTORY OF PRESENT ILLNESS: Hollis Barrera is a 57-year-old male with complicated health issues including kidney transplant, diabetes mellitus, and hypertension. Admitted with symptomatic hyperkalemia at 6.9. Please see admitting history and physical. Please see ER note. In the hospital was given intravenous insulin, bicarbonate, and calcium in the ER. Potassium fell to 6, repeat 6. He was given a dose of Kayexalate and IV fluids, insulin on board fell to 4.6, and upon discharge 5.2. On no medications that should cause profound hyperkalemia. Magnesium on board. PHYSICAL EXAMINATION: VITAL SIGNS: On discharge, 36.8, 69, 146/75, 20, 97. GENERAL: Bright, awake, alert. HEENT: Mouth and oropharynx clear. NECK: Benign. Thyroid small. CHEST: Clear in all lung bar. No adventitious sounds. HEART: No ectopy or murmur. ABDOMEN: Benign. Surgical scar well healed. ASSESSMENT: Hyperkalemia, resolved. PLAN: Fluids, hydration, regular use of insulin, excessively high sugars have been present. Will follow up in [address] Andersen. Metabolic panel and potassium. SURGICAL PROCEDURES: None. CONSULTATION: None. ADDENDUM: A 30-minute visit; discharge exam, planning, and discharge documentation. /[id number] MARIBEL/MILES
== END 2018-07-07 13:25 | disposition home or self-care (01) | DRG 641 ==
LOC: FB.ED 18:48 → FB.MS 20:05
PROVIDERS: ADMIT Family Medicine; ATTEND Family Medicine
PROC: 30233N1 Transfusion of Nonautologous Red Blood Cells into Peripheral Vein, Percutaneous Approach (ICD-10-PCS; principal; 2018-07-06)
DX: E87.5 Hyperkalemia (principal); Z94.0 Kidney transplant status; E86.0 Dehydration; I12.9 Hypertensive chronic kidney disease with stage 1 through stage 4 chronic kidney disease, or unspecified chronic kidney disease; N18.9 Chronic kidney disease, unspecified; E11.22 Type 2 diabetes mellitus with diabetic chronic kidney disease; E11.65 Type 2 diabetes mellitus with hyperglycemia; D46.9 Myelodysplastic syndrome, unspecified; M25.579 Pain in unspecified ankle and joints of unspecified foot; R53.1 Weakness; R06.02 Shortness of breath; Z79.4 Long term (current) use of insulin; E78.00 Pure hypercholesterolemia, unspecified; I25.2 Old myocardial infarction; K21.9 Gastro-esophageal reflux disease without esophagitis; Z72.0 Tobacco use; D53.9 Nutritional anemia, unspecified; F10.21 Alcohol dependence, in remission; M54.9 Dorsalgia, unspecified; G89.29 Other chronic pain; Z95.5 Presence of coronary angioplasty implant and graft; H54.7 Unspecified visual loss; Z87.440 Personal history of urinary (tract) infections; Z79.82 Long term (current) use of aspirin; Z79.52 Long term (current) use of systemic steroids; Z90.49 Acquired absence of other specified parts of digestive tract; E89.0 Postprocedural hypothyroidism; Z96.643 Presence of artificial hip joint, bilateral
CPT/HCPCS: 36415; 71046; 80053; 82962; 83880; 84484; 85025; 86850; 86900; 86901; 86920; 86922; 93005; 96374; 99285; J1815; J7030; 36430; 80048; 83036; 85014; 85018; 96375; A9270-GY; J0610; J7050; P9016

== ENCOUNTER 2018-08-07 08:22 | Emergency (ER) | payer MEDICARE, MEDICAID ==
[2018-08-07] MEDS ORDERED: Aspirin 81 MG Tab.Chew PO ONE (08:35)
[2018-08-07] MEDS ORDERED: Nitroglycerin 0.4 MG Tab.SL SL PRN (08:35)
[2018-08-07] MEDS ORDERED: Sodium Chloride 0.9% 10 ML Syringe FLUSH PRN (08:35)
[2018-08-07] MEDS ORDERED: traMADol 50 MG Tab PO ONE (09:01)
--- NOTE | 2018-08-07 09:12 | EDM.PDOC ---
ED HPI GENERAL MEDICAL PROBLEM - General Chief Complaint: Chest Pain Stated Complaint: CHEST BACK PAIN Time Seen by Provider: 08/07/18 08:22 Source of Information: Reports: Patient, Old Records History Limitations: Reports: No Limitations - History of Present Illness INITIAL COMMENTS - FREE TEXT/NARRATIVE: Hollis comes into [facility] ED by EMS with reports of back pain over the past 48 hrs. Pain started in the lower back, and has migrated to involve the mid and upper back, into the neck and chest, aggravated with bending. There are no long tract sxs in LEs. There is no reported bowel or bladder dysfunction. There is no hx of fever, chills, sweats, cough, headache, or myalgias affecting the UEs or LEs. He has taken no analgesics. Mr. Barrera has a complex PMH including chronic low back pain, Type II DM, renal transplantation, myelodysplastic syndrome, NSTEMI, HBP, and UTIs. Lower Back Pain Score (Numeric/FACES): 7 - Related Data Allergies Allergy/AdvReac Type Severity Reaction Status Date / Time No Known Allergies Allergy Verified 07/22/18 19:47 Home Meds: Home Meds Cholecalciferol (Vitamin D3) [Vitamin D3] 1,000 unit PO DAILY 06/07/15 [History] Calcitriol [Rocaltrol] 0.5 mcg PO DAILY 08/22/15 [History] Magnesium Oxide [Magnesium] 500 mg PO TID 07/23/17 [History] Sodium Bicarbonate 650 mg PO BID 07/23/17 [History] Tacrolimus 1 mg PO 0900 07/23/17 [History] Aspirin 81 mg PO 1500 09/17/17 [History] Carvedilol [Coreg] 6.25 mg PO BID 09/17/17 [History] predniSONE [Prednisone] 10 mg PO DAILY 09/17/17 [History] Acetaminophen [Tylenol] 650 mg PO Q4H PRN 02/24/18 [History] Isosorbide Mononitrate [Imdur] 30 mg PO DAILY 02/24/18 [History] Tacrolimus [Prograf] 0.5 mg PO BEDTIME 02/24/18 [History] glipiZIDE [Glucotrol] 5 mg PO DAILY 02/24/18 [History] Calcium Carbonate/Vitamin D3 [Calcium 600 + Vit D 400 Softgl] 1 tab PO BID 08/07 [History] Citalopram [Citalopram HBr] 20 mg PO DAILY 08/07/18 [History] Fluconazole [Diflucan] 200 mg PO DAILY 08/07/18 [History] Gabapentin [Neurontin] 100 mg PO DAILY 08/07/18 [History] Insulin Degludec [Tresiba Flextouch U-100] 10 units SQ DAILY 08/07/18 [History] Ticagrelor [Brilinta] 90 mg PO BID 08/07/18 [History] glipiZIDE [Glucotrol] 2.5 mg PO BEDTIME 08/07/18 [History] traMADol [Ultram] 50 mg PO Q6H PRN #10 tab 08/07/18 [Rx] Past Medical History HEENT History: Reports: Impaired Vision Other HEENT History: Pt wears glasses Cardiovascular History: Reports: High Cholesterol, Hypertension, AK, Stents, Other (See Below) Other Cardiovascular History: viral menigitis 2015 (also "had AK 09/2017 went to [place] they put in a stent" this recorded on 09/14/17) Respiratory History: Reports: SOB Gastrointestinal History: Reports: Cholelithiasis, Colon Polyp, Diverticulosis, GERD, Hemorrhoids Genitourinary History: Reports: Renal Disease, Other (See Below) Other Genitourinary History: kidney transplant (2001) pts fistula was removed early may 2017 from left arm Musculoskeletal History: Reports: Back Pain, Chronic, Other (See Below) Other Musculoskeletal History: has lump on neck vein and will need it removed Neurological History: Reports: Neuropathy, Diabetic, Other (See Below) Other Neuro History: occ headache when blood is low Psychiatric History: Reports: Addiction, Anxiety, Depression, Panic Attack, Other (See Below) Other Psychiatric History: gets mildly depressed. POST ALCOHOLIC 1998 Endocrine/Metabolic History: Reports: Diabetes, Type II, Hypoparathyroidism Hematologic History: Reports: Anemia, Blood Transfusion(s) Other Hematologic History: myelodysplastic syndrome Immunologic History: Reports: Solid Organ Transplant Other Immunologic History: kidney transplant 2001 Dermatologic History: Reports: None - Infectious Disease History Infectious Disease History: Reports: Chicken Pox, Meningitis - Past Surgical History Head Surgeries/Procedures: Reports: None HEENT Surgical History: Reports: None Cardiovascular Surgical History: Reports: Carotid Stents Respiratory Surgical History: Reports: None GI Surgical History: Reports: Appendectomy, Cholecystectomy, Colonoscopy Male Surgical History: Reports: Other (See Below) Other Male Surgeries/Procedures: kidney transplant in 2002 Endocrine Surgical History: Reports: Other (See Below) Other Endocrine Surgeries/Procedures: had thyroid removed Neurological Surgical History: Reports: None Musculoskeletal Surgical History: Reports: Hip Replacement Other Musculoskeletal Surgeries/Procedures:: both hips-replaced Dermatological Surgical History: Reports: None Social & Family History - Family History Family Medical History: Noncontributory Cardiac: Reports: Other (See Below) Other Cardiac Family History: Brother had bypass OBGYN: Reports: Endocrine/Metabolic: Reports: Diabetes, type II - Caffeine Use Caffeine Use: Reports: None Other Caffeine Use: 2-3 cups per day ED ROS GENERAL - Review of Systems Review Of Systems: See Below Constitutional: Reports: Malaise, Weakness HEENT: Reports: No Symptoms Respiratory: Reports: No Symptoms Cardiovascular: Reports: Chest Pain (minimal chest pains aggravated with movement of back) Endocrine: Reports: Fatigue GI/Abdominal: Reports: No Symptoms : Reports: Frequency Musculoskeletal: Reports: Neck Pain, Back Pain, Muscle Stiffness Skin: Reports: No Symptoms Neurological: Reports: Difficulty Walking, Weakness Psychiatric: Reports: Anxiety Hematologic/Lymphatic: Reports: Anemia Immunologic: Reports: No Symptoms ED EXAM, GENERAL - Physical Exam Exam: See Below Exam Limited By: No Limitations General Appearance: Alert, WD/WN, Anxious, Mild Distress Eye Exam: Bilateral Eye: EOMI, Normal Inspection, PERRL Ears: Normal External Exam Nose: Normal Inspection Throat/Mouth: Normal Inspection, Normal Voice Head: Normocephalic Neck: Normal Inspection, Limited Range of Motion (pain with lateral, forward and extension bending) Respiratory/Chest: Lungs Clear, Chest Non-Tender, Decreased Breath Sounds Cardiovascular: Regular Rate, Rhythm, No Edema, No Gallop, No JVD GI/Abdominal: Soft, Non-Tender, No Organomegaly, No Mass (Male) Exam: Deferred Rectal (Males) Exam: Deferred Back Exam: Normal Inspection, Decreased Range of Motion, Muscle Spasm, Paraspinal Tenderness Extremities: No Pedal Edema, Other (generalized weakness) Neurological: Alert, Oriented, CN II-XII Intact Psychiatric: Anxious Skin Exam: Warm, Dry, Intact Lymphatic: No Adenopathy Course - Vital Signs Text/Narrative:: Following assessment at the [facility] ED, screening labs and a 12 lead ekg were obtained. He was administered Tramadol 50 mg po with good relief of pain. Screening labwork remains baseline, including UA. Last Recorded V/S: Last Vital Signs Temp 36.4 C 08/07/18 08:21 Pulse 71 08/07/18 08:21 Resp 18 08/07/18 08:21 BP 145/93 H 08/07/18 08:21 Pulse Ox 100 08/07/18 08:21 - Orders/Labs/Meds Orders: Active Orders 24 hr Category Date Time Status Cardiac Monitoring [RC] .As Directed Care 08/07/18 08:35 Active EKG Documentation Completion [RC] ASDIRECTED Care 08/07/18 08:37 Active Chest 1V Frontal [CR] Routine Exams 08/07/18 08:37 Taken Nitroglycerin [Nitrostat] Med 08/07/18 08:35 Active 0.4 mg SL Q5M PRN Sodium Chloride 0.9% [Saline Flush] Med 08/07/18 08:35 Active 10 ml FLUSH ASDIRECTED PRN Saline Lock Insert [OM.PC] Stat Oth 08/07/18 08:35 Ordered EKG 12 Lead [EK] Stat Ther 08/07/18 08:37 Ordered Medication Orders Nitroglycerin (Nitrostat) 0.4 mg SL Q5M PRN PRN Reason: Chest Pain Sodium Chloride (Saline Flush) 10 ml FLUSH ASDIRECTED PRN PRN Reason: Keep Vein Open Labs: Laboratory Tests 08/07/18 08/07/18 08/07/18 Range/Units 08:40 08:40 08:40 WBC 3.7 L (4.5-12.0) X10-3/uL RBC 2.82 L (4.30-5.75) x10(6)uL Hgb 8.0 L (13.5-17.8) g/dL Hct 24.0 L (30.0-51.3) % MCV 85.2 (80-96) fL MCH 28.5 (27.7-33.6) pg MCHC 33.5 (32.2-35.4) g/dL RDW 14.8 (11.5-15.5) % Plt Count 133 (125-369) X10(3)uL MPV 9.2 (7.4-10.4) fL Neut % (Auto) 62.7 (46-82) % Lymph % (Auto) 24.5 (13-37) % [place] % (Auto) 9.4 (4-12) % Eos % (Auto) 2 (1.0-5.0) % Baso % (Auto) 1 (0-2) % Neut # (Auto) 2.4 (1.6-8.3) # Lymph # (Auto) 0.9 (0.6-5.0) # [place] # (Auto) 0.3 (0.0-1.3) # Eos # (Auto) 0.1 (0.0-0.8) # Baso # (Auto) 0.0 (0.0-0.2) # Sodium 137 (135-145) mmol/L Potassium 4.4 (3.5-5.3) mmol/L Chloride 100 (100-110) mmol/L Carbon Dioxide 29 (21-32) mmol/L BUN 35 H D (7-18) mg/dL Creatinine 1.5 H (0.70-1.30) mg/dL Est Cr Clr Drug Dosing TNP Estimated GFR (MDRD) 48 L (>60) BUN/Creatinine Ratio 23.3 H (9-20) Glucose 94 D (80-116) mg/dL Calcium 7.8 L (8.6-10.2) mg/dL Total Bilirubin 0.4 (0.1-1.3) mg/dL AST 23 D (5-25) IU/L ALT 51 H D (12-36) U/L Alkaline Phosphatase 228 H (56-112) IU/L Creatine Kinase (60-160) IU/L Troponin I < 0.017 L (<0.017-0.056) ng/mL Total Protein 6.9 (6.0-8.0) g/dL Albumin 2.8 L (3.5-5.2) g/dL Globulin 4.1 g/dL Albumin/Globulin Ratio 0.7 Urine Color (YELLOW) Urine Appearance (CLEAR) Urine pH (5.0-6.5) Ur Specific [place] (1.010-1.025) Urine Protein (NEGATIVE) mg/dL Urine Glucose (UA) (NORMAL) mg/dL Urine Ketones (NEGATIVE) mg/dL Urine Occult Blood (NEGATIVE) Urine Nitrite (NEGATIVE) Urine Bilirubin (NEGATIVE) Urine Urobilinogen (NEGATIVE) mg/dL Ur Leukocyte Esterase (NEGATIVE) Urine RBC (0-5) Urine WBC (0-5) Urine Bacteria (NS) 08/07/18 08/07/18 Range/Units 08:40 09:50 WBC (4.5-12.0) X10-3/uL RBC (4.30-5.75) x10(6)uL Hgb (13.5-17.8) g/dL Hct (30.0-51.3) % MCV (80-96) fL MCH (27.7-33.6) pg MCHC (32.2-35.4) g/dL RDW (11.5-15.5) % Plt Count (125-369) X10(3)uL MPV (7.4-10.4) fL Neut % (Auto) (46-82) % Lymph % (Auto) (13-37) % [place] % (Auto) (4-12) % Eos % (Auto) (1.0-5.0) % Baso % (Auto) (0-2) % Neut # (Auto) (1.6-8.3) # Lymph # (Auto) (0.6-5.0) # [place] # (Auto) (0.0-1.3) # Eos # (Auto) (0.0-0.8) # Baso # (Auto) (0.0-0.2) # Sodium (135-145) mmol/L Potassium (3.5-5.3) mmol/L Chloride (100-110) mmol/L Carbon Dioxide (21-32) mmol/L BUN (7-18) mg/dL Creatinine (0.70-1.30) mg/dL Est Cr Clr Drug Dosing Estimated GFR (MDRD) (>60) BUN/Creatinine Ratio (9-20) Glucose (80-116) mg/dL Calcium (8.6-10.2) mg/dL Total Bilirubin (0.1-1.3) mg/dL AST (5-25) IU/L ALT (12-36) U/L Alkaline Phosphatase (56-112) IU/L Creatine Kinase 13 L (60-160) IU/L Troponin I (<0.017-0.056) ng/mL Total Protein (6.0-8.0) g/dL Albumin (3.5-5.2) g/dL Globulin g/dL Albumin/Globulin Ratio Urine Color Yellow (YELLOW) Urine Appearance Clear (CLEAR) Urine pH 7.0 H (5.0-6.5) Ur Specific [place] 1.005 L (1.010-1.025) Urine Protein Negative (NEGATIVE) mg/dL Urine Glucose (UA) Normal (NORMAL) mg/dL Urine Ketones Negative (NEGATIVE) mg/dL Urine Occult Blood Negative (NEGATIVE) Urine Nitrite Negative (NEGATIVE) Urine Bilirubin Negative (NEGATIVE) Urine Urobilinogen Normal (NEGATIVE) mg/dL Ur Leukocyte Esterase Moderate H (NEGATIVE) Urine RBC Not seen (0-5) Urine WBC 0-5 (0-5) Urine Bacteria Rare H (NS) Meds: Medications Generic Name Dose Route Start Last Admin Trade Name Freq PRN Reason Stop Dose Admin Nitroglycerin 0.4 mg 08/07/18 08:35 Nitrostat SL Q5M PRN Chest Pain Sodium Chloride 10 ml 08/07/18 08:35 Saline Flush FLUSH ASDIRECTED PRN Keep Vein Open Discontinued Medications Generic Name Dose Route Start Last Admin Trade Name Freq PRN Reason Stop Dose Admin Aspirin 324 mg 08/07/18 08:35 08/07/18 08:40 Aspirin PO 08/07/18 08:36 324 mg ONETIME ONE Administration Tramadol HCl 50 mg 08/07/18 09:01 08/07/18 09:11 Ultram PO 08/07/18 09:02 50 mg ONETIME ONE Administration Departure - Departure Time of Disposition: 10:23 Disposition: Home, Self-Care 01 Condition: Fair Clinical Impression: Back pain Qualifiers: Back pain location: back pain in unspecified location Chronicity: unspecified Back pain laterality: midline Qualified Code(s): M54.89 - Other dorsalgia - Discharge Information *PRESCRIPTION DRUG MONITORING PROGRAM REVIEWED*: Not Applicable *COPY OF PRESCRIPTION DRUG MONITORING REPORT IN PATIENT JUNI: Not Applicable Prescriptions: traMADol [Ultram] 50 mg PO Q6H PRN #10 tab PRN Reason: Breakthrough Pain Referrals: Du Andersen MD [Primary Care Provider] - Forms: ED Department Discharge - Problem List & Annotations (1) Back pain SNOMED Code(s): 644795892 Code(s): M54.9 - DORSALGIA, UNSPECIFIED Status: Acute Current Visit: Yes Annotation/Comment:: I dispensed Tramadol 50 mg q 6hrs prn for breakthrough pain. Qualifiers: Back pain location: back pain in unspecified location Chronicity: unspecified Back pain laterality: midline Qualified Code(s): M54.89 - Other dorsalgia - Problem List Review Problem List Initiated/Reviewed/Updated: Yes - My Orders Last 24 Hours: My Active Orders 08/07/18 08:35 Cardiac Monitoring [RC] .As Directed Nitroglycerin [Nitrostat] 0.4 mg SL Q5M PRN Sodium Chloride 0.9% [Saline Flush] 10 ml FLUSH ASDIRECTED PRN Saline Lock Insert [OM.PC] Stat 08/07/18 08:37 EKG Documentation Completion [RC] ASDIRECTED Chest 1V Frontal [CR] Routine EKG 12 Lead [EK] Stat - Assessment/Plan Last 24 Hours: My Active Orders 08/07/18 08:35 Cardiac Monitoring [RC] .As Directed Nitroglycerin [Nitrostat] 0.4 mg SL Q5M PRN Sodium Chloride 0.9% [Saline Flush] 10 ml FLUSH ASDIRECTED PRN Saline Lock Insert [OM.PC] Stat 08/07/18 08:37 EKG Documentation Completion [RC] ASDIRECTED Chest 1V Frontal [CR] Routine EKG 12 Lead [EK] Stat Plan: Follow up with Transplant Service at [facility] tomorrow regarding anemia and renal status.
[2018-08-07 09:49] VITALS: BP 145/93
--- NOTE | 2018-08-07 11:13 | CR ---
INDICATION: Chest pain. CHEST: An AP upright view of the chest was obtained 08/07/18 and compared with 07/05/18 and 05/13/18. Poor inspiration on AP positioning emphasized the heart , which likely is normal in size. The aorta is tortuous with calcification in the arch. Overlying EKG leads are noted. Degenerative changes are noted in the spine with hypertrophic lipping, bridging disk spaces laterally. An active infiltrate or effusion was not identified. Overlying snaps are noted, in addition to the EKG leads. IMPRESSION: No acute process. MTDD
== END 2018-08-07 10:40 | disposition home or self-care (01) ==
LOC: FB.ED 08:22
DX: M54.5 Low back pain (principal); M54.6 Pain in thoracic spine; I10 Essential (primary) hypertension; E78.00 Pure hypercholesterolemia, unspecified; E11.40 Type 2 diabetes mellitus with diabetic neuropathy, unspecified; E20.9 Hypoparathyroidism, unspecified; F41.9 Anxiety disorder, unspecified; F32.9 Major depressive disorder, single episode, unspecified; Z79.899 Other long term (current) drug therapy; Z79.82 Long term (current) use of aspirin; Z79.4 Long term (current) use of insulin
CPT/HCPCS: 36415; 71045; 80053; 81001; 82550; 84484; 85025; 93005; 99285-25; A9270-GY

== ENCOUNTER 2018-10-16 07:05 | Inpatient (IN) | payer MEDICARE, MEDICAID ==
[2018-10-16] MEDS ORDERED: Acetaminophen 500 MG Tab PO ONE (07:31)
--- NOTE | 2018-10-16 07:50 | EDM.PDOC ---
ED HPI GENERAL MEDICAL PROBLEM - General Chief Complaint: Genitourinary Problem Stated Complaint: UTI Time Seen by Provider: 10/16/18 07:25 Source of Information: Reports: Patient History Limitations: Reports: No Limitations - History of Present Illness INITIAL COMMENTS - FREE TEXT/NARRATIVE: Patient presents with concern for possible kidney infection, states that 2 days ago after his transfusion he started having some increased urgency and having to run to the bathroom quickly, sometimes dribbling a little bit before he gets there. Yesterday started noticing some pain in his kidney, also has some low back pain. He reports that everything hurts all over his body, hurts to take a deep breath, hurts to move around, and abdomen hurts. No vomiting or diarrhea. Hx NE with one stent placed he thinks about a year ago. Symptoms at the time were a funny twinge high in his chest and some chest pressure, he has not had any of those symptoms recently with exertion or at rest, and does not feel like that now. He has not had any palpitations, does not feel lightheaded or dizzy. Goes up steps 2-3 at a time "because I don't want to overdo it" but states asymptomatic when doing so. Mid-back & abdomen Pain Score (Numeric/FACES): 9 - Related Data Allergies Allergy/AdvReac Type Severity Reaction Status Date / Time No Known Allergies Allergy Verified 10/16/18 07:15 Home Meds: Home Meds Cholecalciferol (Vitamin D3) [Vitamin D3] 1,000 unit PO DAILY 06/07/15 [History] Calcitriol [Rocaltrol] 0.5 mcg PO DAILY 08/22/15 [History] Magnesium Oxide [Magnesium] 500 mg PO TID 07/23/17 [History] Sodium Bicarbonate 650 mg PO BID 07/23/17 [History] Aspirin 81 mg PO 1500 09/17/17 [History] predniSONE [Prednisone] 10 mg PO DAILY 09/17/17 [History] Acetaminophen [Tylenol] 650 mg PO Q4H PRN 02/24/18 [History] Tacrolimus [Prograf] 0.5 mg PO BID 02/24/18 [History] glipiZIDE [Glucotrol] 5 mg PO BID 02/24/18 [History] Citalopram [Citalopram HBr] 20 mg PO DAILY 08/07/18 [History] Fluconazole [Diflucan] 200 mg PO DAILY 08/07/18 [History] Gabapentin [Neurontin] 100 mg PO DAILY 08/07/18 [History] Insulin Degludec [Tresiba Flextouch U-100] 15 units SQ 1400 08/07/18 [History] Ticagrelor [Brilinta] 90 mg PO BID 08/07/18 [History] traMADol [Ultram] 50 mg PO Q6H PRN #10 tab 08/07/18 [Rx] Past Medical History HEENT History: Reports: Impaired Vision Other HEENT History: Pt wears glasses Cardiovascular History: Reports: High Cholesterol, NE, Stents, Other (See Below) Other Cardiovascular History: viral menigitis 2015 (also "had NE 09/2017 went to [facility] they put in a stent" this recorded on 09/14/17) Respiratory History: Reports: SOB Gastrointestinal History: Reports: Cholelithiasis, Colon Polyp, Diverticulosis, Hemorrhoids Genitourinary History: Reports: Renal Disease, Other (See Below) Other Genitourinary History: kidney transplant (2001) pts fistula was removed early may 2017 from left arm Musculoskeletal History: Reports: Back Pain, Chronic, Other (See Below) Other Musculoskeletal History: has lump on neck vein and will need it removed Neurological History: Reports: Other (See Below) Other Neuro History: occ headache when blood is low Psychiatric History: Reports: Addiction, Anxiety, Depression, Panic Attack, Other (See Below) Other Psychiatric History: gets mildly depressed. POST ALCOHOLIC 1998 Endocrine/Metabolic History: Reports: Diabetes, Type II, Hypoparathyroidism Hematologic History: Reports: Anemia, Blood Transfusion(s) Other Hematologic History: myelodysplastic syndrome Immunologic History: Reports: Solid Organ Transplant Other Immunologic History: kidney transplant 2001 Dermatologic History: Reports: None - Infectious Disease History Infectious Disease History: Reports: Chicken Pox, Measles, Meningitis, Mumps - Past Surgical History Head Surgeries/Procedures: Reports: None HEENT Surgical History: Reports: None Cardiovascular Surgical History: Reports: Carotid Stents Respiratory Surgical History: Reports: None GI Surgical History: Reports: Appendectomy, Cholecystectomy, Colonoscopy Male Surgical History: Reports: Other (See Below) Other Male Surgeries/Procedures: kidney transplant in 2001 Endocrine Surgical History: Reports: Other (See Below) Other Endocrine Surgeries/Procedures: had thyroid removed Musculoskeletal Surgical History: Reports: Hip Replacement Other Musculoskeletal Surgeries/Procedures:: both hips-replaced Dermatological Surgical History: Reports: None Social & Family History - Family History Family Medical History: Noncontributory Cardiac: Reports: Other (See Below) Other Cardiac Family History: Brother had bypass OBGYN: Reports: Endocrine/Metabolic: Reports: Diabetes, type II - Tobacco Use Smoking Status *Q: Unknown Ever Smoked Tobacco Use Within Last Twelve Months: Other (See Below) Tobacco Use Comment: chews 3X/day - Caffeine Use Caffeine Use: Reports: Coffee Other Caffeine Use: 2-3 cups per day Caffeine Use Comment: two cups a day - Alcohol Use Alcohol Use History: Yes Alcohol Use in Last Twelve Months: No Alcohol Use Comment: sober many years - Recreational Drug Use Recreational Drug Use: Yes Other Recreational Drug Type: THC occasionally ED ROS GENERAL - Review of Systems Review Of Systems: See Below Constitutional: Reports: Chills, Malaise, Weakness, Fatigue, Decreased Appetite HEENT: Denies: Eye Pain Respiratory: Reports: Shortness of Breath Cardiovascular: Denies: Blood Pressure Problem, Dyspnea on Exertion, Edema, Palpitations Endocrine: Reports: Polyuria GI/Abdominal: Reports: Abdominal Pain : Reports: Dysuria, Frequency Neurological: Denies: Confusion, Dizziness, Headache, Numbness, Tingling, Gait Disturbance Hematologic/Lymphatic: Reports: Anemia ED EXAM, GENERAL - Physical Exam Exam: See Below Free Text/Narrative:: Gen.: Alert, complains of pain everywhere, nontoxic-appearing. Tympanic membranes are clear bilaterally with normal light reflex and throat is without erythema, mucous murmurs moist and there is no tonsillar enlargement or x-rays. Minimal nasal congestion, no facial or sinus tenderness. No cervical lymphadenopathy. Neck is freely movable. Heart is regular rate and rhythm and I do not hear murmur. Lungs are clear in the upper lung bar with decreased sounds in the left base, no obvious crackles, no wheezing. Abdomen is tender all over, complains of severe pain with palpation of his transplanted kidney, diffusely tender everywhere else with no rebound or guarding. Tender all throughout his back as well with any form of palpation, able to sit up on the bed when moves slowly. Peripheral pulses +2 over 4 in both the upper and lower extremities and he has no lower extremity edema. Strength +5 out of 5 and equal in both the upper and lower extremities, no obvious sensation deficits. Skin has diffuse bruises but no open wounds or rashes are noted. EKG INTERPRETATION Rhythm: NSR P-Wave: Present ST-T: Normal QT: Normal Course - Vital Signs Text/Narrative:: Initial evaluation completed. Patient nontoxic, but high risk to develop sepsis due to multiple medical problems including myelodysplastic syndrome, immunosuppressed status due to transplanted kidney. Also with history of diabetes type 2, takes his insulin once a day in the afternoon. History of stent placed approximately one years ago and possible history of congestive heart failure. Vitals stable, slight tachycardia, good blood pressure. CXR, UA, Labs ordered, will give Vanc and Zosyn, fluids at maintenance rate with no bolus until further information obtained from labs due to uncertain cardiac function. EKG appears unremarkable. Last Recorded V/S: Last Vital Signs Temp 37.6 C 10/16/18 09:00 Pulse 87 10/16/18 09:00 Resp 18 10/16/18 09:00 BP 137/83 10/16/18 09:00 Pulse Ox 97 10/16/18 09:00 - Orders/Labs/Meds Orders: Active Orders 24 hr Category Date Time Status EKG Documentation Completion [RC] ASDIRECTED Care 10/16/18 07:41 Active Chest 2V [CR] Stat Exams 10/16/18 07:32 Taken CALCIUM, IONIZED, SERUM Stat Lab 10/16/18 08:12 Ordered CULTURE BLOOD [BC] Urgent Lab 10/16/18 07:30 Received CULTURE BLOOD [BC] Urgent Lab 10/16/18 07:40 Received Piperacillin/Tazobactam [Zosyn] 3.375 gm Med 10/16/18 07:45 Active Sodium Chloride 0.9% [Normal Saline] 50 ml IV Q6H Sodium Chloride 0.9% [Normal Saline] 1,000 ml Med 10/16/18 07:45 Active IV ASDIRECTED Vancomycin 500 mg Med 10/16/18 08:15 Active Vancomycin 1 gm Sodium Chloride 0.9% [Normal Saline] 500 ml IV ONETIME traMADol [Ultram] Med 10/16/18 08:40 Ordered 50 mg PO Q6H PRN Blood Culture x2 Reflex Set [OM.PC] Urgent Oth 10/16/18 07:19 Ordered EKG 12 Lead [EK] Routine Ther 10/16/18 07:40 Ordered Medication Orders Sodium Chloride (Normal Saline) 1,000 mls @ 150 mls/hr IV ASDIRECTED [facility] Last Admin: 10/16/18 08:00 Dose: 150 mls/hr Piperacillin Sod/Tazobactam (Sod 3.375 gm/ Sodium Chloride) 50 mls @ 100 mls/ hr IV Q6H [facility] Last Admin: 10/16/18 08:10 Dose: 100 mls/hr Vancomycin HCl 500 mg/Vancomycin HCl 1 gm/ Sodium Chloride 500 mls @ 250 mls/ hr IV ONETIME ONE Stop: 10/16/18 10:14 Last Admin: 10/16/18 08:54 Dose: 250 mls/hr Tramadol HCl (Ultram) 50 mg PO Q6H PRN PRN Reason: Pain Last Admin: 10/16/18 08:58 Dose: 50 mg Labs: Laboratory Tests 10/16/18 10/16/18 10/16/18 Range/Units 07:30 07:30 07:30 WBC 4.2 L (4.5-12.0) X10-3/uL RBC 2.47 L (4.30-5.75) x10(6)uL Hgb 8.7 L (13.5-17.8) g/dL Hct 23.5 L (30.0-51.3) % MCV 95.1 (80-96) fL MCH 35.4 H (27.7-33.6) pg MCHC 37.3 H (32.2-35.4) g/dL RDW 13.0 (11.5-15.5) % Plt Count 92 L (125-369) X10(3)uL MPV 9.3 (7.4-10.4) fL Neut % (Auto) 72.6 (46-82) % Lymph % (Auto) 16.8 (13-37) % Hitchcock % (Auto) 8.1 (4-12) % Eos % (Auto) 1 (1.0-5.0) % Baso % (Auto) 1 (0-2) % Neut # (Auto) 3.1 (1.6-8.3) # Lymph # (Auto) 0.7 (0.6-5.0) # Hitchcock # (Auto) 0.3 (0.0-1.3) # Eos # (Auto) 0.0 (0.0-0.8) # Baso # (Auto) 0.1 (0.0-0.2) # Sodium 135 (135-145) mmol/L Potassium 4.5 (3.5-5.3) mmol/L Chloride 99 L (100-110) mmol/L Carbon Dioxide 26 (21-32) mmol/L BUN 43 H (7-18) mg/dL Creatinine 1.7 H (0.70-1.30) mg/dL Est Cr Clr Drug Dosing TNP Estimated GFR (MDRD) 42 L (>60) BUN/Creatinine Ratio 25.3 H (9-20) Glucose 143 H (80-116) mg/dL Lactic Acid 0.6 (0.4-2.2) mmol/L Calcium 6.5 L* (8.6-10.2) mg/dL Magnesium (1.8-2.5) mg/dL Total Bilirubin 0.6 (0.1-1.3) mg/dL AST 21 (5-25) IU/L ALT 51 H (12-36) U/L Alkaline Phosphatase 176 H (56-112) IU/L Troponin I (<0.017-0.056) ng/mL C-Reactive Protein (0.5-0.9) mg/dL NT-Pro-B Natriuret Pep (<=125) pg/mL Total Protein 7.0 (6.0-8.0) g/dL Albumin 2.6 L (3.5-5.2) g/dL Globulin 4.4 g/dL Albumin/Globulin Ratio 0.6 Urine Color (YELLOW) Urine Appearance (CLEAR) Urine pH (5.0-6.5) Ur Specific [place] (1.010-1.025) Urine Protein (NEGATIVE) mg/dL Urine Glucose (UA) (NORMAL) mg/dL Urine Ketones (NEGATIVE) mg/dL Urine Occult Blood (NEGATIVE) Urine Nitrite (NEGATIVE) Urine Bilirubin (NEGATIVE) Urine Urobilinogen (NEGATIVE) mg/dL Ur Leukocyte Esterase (NEGATIVE) Urine RBC (0-5) Urine WBC (0-5) Ur Squamous Epith Cells (NS,R,O) Urine Bacteria (NS) 10/16/18 10/16/18 10/16/18 Range/Units 07:30 07:30 07:30 WBC (4.5-12.0) X10-3/uL RBC (4.30-5.75) x10(6)uL Hgb (13.5-17.8) g/dL Hct (30.0-51.3) % MCV (80-96) fL MCH (27.7-33.6) pg MCHC (32.2-35.4) g/dL RDW (11.5-15.5) % Plt Count (125-369) X10(3)uL MPV (7.4-10.4) fL Neut % (Auto) (46-82) % Lymph % (Auto) (13-37) % Hitchcock % (Auto) (4-12) % Eos % (Auto) (1.0-5.0) % Baso % (Auto) (0-2) % Neut # (Auto) (1.6-8.3) # Lymph # (Auto) (0.6-5.0) # Hitchcock # (Auto) (0.0-1.3) # Eos # (Auto) (0.0-0.8) # Baso # (Auto) (0.0-0.2) # Sodium (135-145) mmol/L Potassium (3.5-5.3) mmol/L Chloride (100-110) mmol/L Carbon Dioxide (21-32) mmol/L BUN (7-18) mg/dL Creatinine (0.70-1.30) mg/dL Est Cr Clr Drug Dosing Estimated GFR (MDRD) (>60) BUN/Creatinine Ratio (9-20) Glucose (80-116) mg/dL Lactic Acid (0.4-2.2) mmol/L Calcium (8.6-10.2) mg/dL Magnesium (1.8-2.5) mg/dL Total Bilirubin (0.1-1.3) mg/dL AST (5-25) IU/L ALT (12-36) U/L Alkaline Phosphatase (56-112) IU/L Troponin I < 0.017 L (<0.017-0.056) ng/mL C-Reactive Protein 19.9 H* (0.5-0.9) mg/dL NT-Pro-B Natriuret Pep 6714 H* (<=125) pg/mL Total Protein (6.0-8.0) g/dL Albumin (3.5-5.2) g/dL Globulin g/dL Albumin/Globulin Ratio Urine Color (YELLOW) Urine Appearance (CLEAR) Urine pH (5.0-6.5) Ur Specific [place] (1.010-1.025) Urine Protein (NEGATIVE) mg/dL Urine Glucose (UA) (NORMAL) mg/dL Urine Ketones (NEGATIVE) mg/dL Urine Occult Blood (NEGATIVE) Urine Nitrite (NEGATIVE) Urine Bilirubin (NEGATIVE) Urine Urobilinogen (NEGATIVE) mg/dL Ur Leukocyte Esterase (NEGATIVE) Urine RBC (0-5) Urine WBC (0-5) Ur Squamous Epith Cells (NS,R,O) Urine Bacteria (NS) 10/16/18 10/16/18 Range/Units 07:30 07:55 WBC (4.5-12.0) X10-3/uL RBC (4.30-5.75) x10(6)uL Hgb (13.5-17.8) g/dL Hct (30.0-51.3) % MCV (80-96) fL MCH (27.7-33.6) pg MCHC (32.2-35.4) g/dL RDW (11.5-15.5) % Plt Count (125-369) X10(3)uL MPV (7.4-10.4) fL Neut % (Auto) (46-82) % Lymph % (Auto) (13-37) % Hitchcock % (Auto) (4-12) % Eos % (Auto) (1.0-5.0) % Baso % (Auto) (0-2) % Neut # (Auto) (1.6-8.3) # Lymph # (Auto) (0.6-5.0) # Hitchcock # (Auto) (0.0-1.3) # Eos # (Auto) (0.0-0.8) # Baso # (Auto) (0.0-0.2) # Sodium (135-145) mmol/L Potassium (3.5-5.3) mmol/L Chloride (100-110) mmol/L Carbon Dioxide (21-32) mmol/L BUN (7-18) mg/dL Creatinine (0.70-1.30) mg/dL Est Cr Clr Drug Dosing Estimated GFR (MDRD) (>60) BUN/Creatinine Ratio (9-20) Glucose (80-116) mg/dL Lactic Acid (0.4-2.2) mmol/L Calcium (8.6-10.2) mg/dL Magnesium 1.7 L (1.8-2.5) mg/dL Total Bilirubin (0.1-1.3) mg/dL AST (5-25) IU/L ALT (12-36) U/L Alkaline Phosphatase (56-112) IU/L Troponin I (<0.017-0.056) ng/mL C-Reactive Protein (0.5-0.9) mg/dL NT-Pro-B Natriuret Pep (<=125) pg/mL Total Protein (6.0-8.0) g/dL Albumin (3.5-5.2) g/dL Globulin g/dL Albumin/Globulin Ratio Urine Color Yellow (YELLOW) Urine Appearance Slightly cloudy (CLEAR) Urine pH 7.0 H (5.0-6.5) Ur Specific [place] 1.005 L (1.010-1.025) Urine Protein 30 H (NEGATIVE) mg/dL Urine Glucose (UA) Normal (NORMAL) mg/dL Urine Ketones Negative (NEGATIVE) mg/dL Urine Occult Blood Large H (NEGATIVE) Urine Nitrite Negative (NEGATIVE) Urine Bilirubin Negative (NEGATIVE) Urine Urobilinogen Normal (NEGATIVE) mg/dL Ur Leukocyte Esterase Moderate H (NEGATIVE) Urine RBC 20-30 H (0-5) Urine WBC 50-75 H (0-5) Ur Squamous Epith Cells Few H (NS,R,O) Urine Bacteria Moderate H (NS) Meds: Medications Generic Name Dose Route Start Last Admin Trade Name Freq PRN Reason Stop Dose Admin Sodium Chloride 1,000 mls @ 150 mls/hr 10/16/18 07:45 10/16/18 08:00 Normal Saline IV 150 mls/hr ASDIRECTED LARON Administration Piperacillin Sod/Tazobactam 50 mls @ 100 mls/hr 10/16/18 07:45 10/16/18 08:10 Sod 3.375 gm/ Sodium Chloride IV 100 mls/hr Q6H LARON Administration Vancomycin HCl 500 mg/ 500 mls @ 250 mls/hr 10/16/18 08:15 10/16/18 08:54 Vancomycin HCl 1 gm/ Sodium IV 10/16/18 10:14 250 mls/hr Chloride ONETIME ONE Administration Tramadol HCl 50 mg 10/16/18 08:40 10/16/18 08:58 Ultram PO 50 mg Q6H PRN Administration Pain Discontinued Medications Generic Name Dose Route Start Last Admin Trade Name Freq PRN Reason Stop Dose Admin Acetaminophen 1,000 mg 10/16/18 07:31 10/16/18 07:38 Tylenol Extra Strength PO 10/16/18 07:32 1,000 mg ONETIME ONE Administration Vancomycin HCl 500 mg/ 500 mls @ 250 mls/hr 10/16/18 08:15 Vancomycin HCl 1 gm/ Sodium IV 10/16/18 10:14 Chloride ONETIME ONE Magnesium Oxide 800 mg 10/16/18 08:45 10/16/18 08:58 Magnesium Oxide PO 10/16/18 08:46 800 mg ONETIME ONE Administration - Re-Assessments/Exams Free Text/Narrative Re-Assessment/Exam: 10/16/18 call received regarding critically low Ca, ordered ionized Ca and magnesium. Based on albumin, corrects to 7.6 hx thyroid removal and hypoparathyroid CXR - ?LL infiltrate, some blunting of lateral diaphram. Patient still complaining of pain, tramadol ordered per home dosing. rest of labs reviewed - Hb 8.7, low WBC and platelets, high BNP 6714 patient remains hemodynamically stable, temperature improved following tylenol. 10/16/18 09:16 Free Text/Narrative Re-Assessment/Exam: 10/16/18 09:[address] Colvin Patient will be admitted to [facility]. Departure - Departure Time of Disposition: 09:18 Disposition: Admitted As Inpatient 65 Condition: Fair Clinical Impression: Pyelonephritis, MDS (myelodysplastic syndrome), Anemia, HENOK (acute kidney injury), Elevated C-reactive protein (CRP), Personal history of immunosupression therapy - Discharge Information *PRESCRIPTION DRUG MONITORING PROGRAM REVIEWED*: Yes *COPY OF PRESCRIPTION DRUG MONITORING REPORT IN PATIENT JUNI: No - My Orders Last 24 Hours: My Active Orders 10/16/18 07:19 Blood Culture x2 Reflex Set [OM.PC] Urgent 10/16/18 07:30 CULTURE BLOOD [BC] Urgent 10/16/18 07:32 Chest 2V [CR] Stat 10/16/18 07:40 CULTURE BLOOD [BC] Urgent EKG 12 Lead [EK] Routine 10/16/18 07:41 EKG Documentation Completion [RC] ASDIRECTED 10/16/18 07:45 Piperacillin/Tazobactam [Zosyn] 3.375 gm Sodium Chloride 0.9% [Normal Saline] 50 ml IV Q6H Sodium Chloride 0.9% [Normal Saline] 1,000 ml IV ASDIRECTED 10/16/18 08:12 CALCIUM, IONIZED, SERUM Stat 10/16/18 08:15 Vancomycin 500 mg Vancomycin 1 gm Sodium Chloride 0.9% [Normal Saline] 500 ml IV ONETIME 10/16/18 08:40 traMADol [Ultram] 50 mg PO Q6H PRN - Assessment/Plan Last 24 Hours: My Active Orders 10/16/18 07:19 Blood Culture x2 Reflex Set [OM.PC] Urgent 10/16/18 07:30 CULTURE BLOOD [BC] Urgent 10/16/18 07:32 Chest 2V [CR] Stat 10/16/18 07:40 CULTURE BLOOD [BC] Urgent EKG 12 Lead [EK] Routine 10/16/18 07:41 EKG Documentation Completion [RC] ASDIRECTED 10/16/18 07:45 Piperacillin/Tazobactam [Zosyn] 3.375 gm Sodium Chloride 0.9% [Normal Saline] 50 ml IV Q6H Sodium Chloride 0.9% [Normal Saline] 1,000 ml IV ASDIRECTED 10/16/18 08:12 CALCIUM, IONIZED, SERUM Stat 10/16/18 08:15 Vancomycin 500 mg Vancomycin 1 gm Sodium Chloride 0.9% [Normal Saline] 500 ml IV ONETIME 10/16/18 08:40 traMADol [Ultram] 50 mg PO Q6H PRN
[2018-10-16] MEDS: Sodium Chloride 0.9% 1,000 ML IV SCH ×2 (08:00→18:42)
[2018-10-16] MEDS: Piperacillin/Tazobactam 3.375 GM in Sodium Chloride 0.9% 50 ML IV SCH ×3 (08:10→20:01)
[2018-10-16] MEDS ORDERED: VANCOMYCIN IV ONE ×2 (08:15)
[2018-10-16] MEDS ORDERED: SODIUM CHLORIDE 0.9% IV ONE ×2 (08:15)
[2018-10-16] MEDS ORDERED: Magnesium Oxide 400 MG Tab PO ONE (08:45)
[2018-10-16] MEDS: traMADol 50 MG Tab PO PRN (08:58)
[2018-10-16] MEDS ORDERED: HYDROmorphone 2 MG/ML SDV IVPUSH PRN (11:41)
[2018-10-16] MEDS ORDERED: Ondansetron 4 MG Tab.DIS PO PRN (11:41)
[2018-10-16] MEDS ORDERED: Enoxaparin 40 MG/0.4 ML Syringe SUBCUT SCH (11:45)
[2018-10-16] MEDS ORDERED: glipiZIDE 5 MG Tab PO SCH (11:45)
[2018-10-16] MEDS: predniSONE 10 MG Tab PO SCH (12:57)
[2018-10-16] MEDS: Fluconazole 100 MG Tab PO SCH (12:57)
[2018-10-16] MEDS: Gabapentin 100 MG Cap PO SCH (12:57)
[2018-10-16] MEDS: Ticagrelor 90 MG Tab PO SCH ×2 (12:57→20:10)
[2018-10-16] MEDS: Citalopram 20 MG Tab PO SCH (12:57)
[2018-10-16] MEDS: Tacrolimus 0.5 MG Cap PO SCH ×2 (12:57→20:10)
[2018-10-16] MEDS: Cholecalciferol (Vitamin D3) 1,000 Unit Tab PO SCH (12:58)
[2018-10-16] MEDS: Calcitriol 0.25 MCG Cap PO SCH (12:58)
[2018-10-16] MEDS: Sodium Bicarbonate 650 MG Tab PO SCH ×2 (12:58→20:10)
[2018-10-16] MEDS: Aspirin 81 MG Tab.Chew PO SCH (13:55)
[2018-10-16] MEDS: Insulin Glargine,Human Rec. Analog 100 Units/ML 3 ML Pen SUBCUT SCH (14:09)
[2018-10-16] MEDS: Carvedilol 6.25 MG Tab PO SCH (20:11)
--- NOTE | 2018-10-17 00:26 | HP ---
ADMISSION DATE: 10/16/2018 REASON FOR VISIT: Complicated pain, fatigue, and lethargy. HISTORY OF PRESENT ILLNESS: Hollis Barrera is a 57-year-old, male, who was seen at [facility] ER. Presented with urinary urgency, frequent urination, dribbling, discomfort, low- grade fever, chills and sweats, and a sense of reduced well-being. History of a host of medical problems to be defined. While in the ER, he was found to have significant abnormal urine, normal white count though. Stable hemoglobin at 8.7 (recent 2 units of blood). Moderately low calcium. BNP 6714. CRP 19.9. Abnormal urine culture to be performed. MEDICATIONS: Please see med recon list. ALLERGIES: Allergic by report to NSAIDs, Zostavax, and [id number] vaccine. PAST MEDICAL HISTORY: Significant for chronic kidney disease. He has had 2 previous kidney transplants, one on the right working. He has had a previous appendectomy, arthroplasty of proximal femur, joint replacement, parathyroidectomy, and a previous shunt. Chronic illnesses include hypertension, DJD, myelodysplasia, and chronic abdominal pain. SOCIAL HISTORY: Resident of [place]. Not employed due to disability. Former smoker, quit in 1989. Chewing tobacco on occasion. No alcohol consumption or illicit drug use. FAMILY HISTORY: Negative for early heart disease, diabetes mellitus, or inheritable cancers. REVIEW OF SYSTEMS: CONSTITUTIONAL: Feeling poorly. Complicated fatigue and lethargy. EYES: Sees pretty well. EARS: Some difficulty in crowds. OROPHARYNX: Poor dentition. GASTROINTESTINAL: Bowels have been fine. GENITOURINARY: Please see HPI. CHEST: No cough, wheeze, or congestion. CARDIOVASCULAR: Denies chest pain. History of CAD with stent. ORTHOPEDIC: Generalized joint complaints. PSYCHIATRIC: Mood stable. PHYSICAL EXAMINATION: VITAL SIGNS: Stable and documented. GENERAL: Young man, cooperative, conversant, gives a good history. HEENT: Reveal normal conjunctivae, funduscopic benign. Bright TMs. Clear nasal discharge. Mouth and oropharynx clear. Poor dentition. Tongue midline. Good gag reflex. NECK: Benign. Thyroid small. Surgical scar well healed. CHEST: Clear in all lung bar. No adventitious sounds. HEART: No ectopy or murmur. ABDOMEN: Surgical scars present in lower abdomen. No hepatosplenomegaly. Mild abdominal distention. GENITOURINARY and RECTAL: Deferred. EXTREMITIES: Well perfused. Decreased pulses. Sensation decreased. LABORATORY STUDIES: As above. ASSESSMENT: 1. Acute probable pyelonephritis. 2. Secondary diagnoses of multiple health issues clearly defined. PLAN: Admission indicated, blood culture, urine culture. Antibiotics; he has been started on Zosyn and vancomycin. Was switched to vancomycin; implications, expectation, concerns, adequate fluids and hydration. Proceed accordingly. Expect a short-term stay. /[id number] MARIBEL/MILES
[2018-10-17] MEDS: Sodium Chloride 0.9% 1,000 ML IV SCH (01:45)
[2018-10-17] MEDS: Piperacillin/Tazobactam 3.375 GM in Sodium Chloride 0.9% 50 ML IV SCH ×4 (01:46→19:53)
[2018-10-17] MEDS: Carvedilol 6.25 MG Tab PO SCH ×2 (08:33→20:54)
[2018-10-17] MEDS: traMADol 50 MG Tab PO PRN (08:33)
[2018-10-17] MEDS: Cholecalciferol (Vitamin D3) 1,000 Unit Tab PO SCH (08:34)
[2018-10-17] MEDS: Tacrolimus 0.5 MG Cap PO SCH ×2 (08:34→20:54)
[2018-10-17] MEDS: glipiZIDE 5 MG Tab PO SCH (08:34)
[2018-10-17] MEDS: Fluconazole 100 MG Tab PO SCH (08:34)
[2018-10-17] MEDS: Sodium Bicarbonate 650 MG Tab PO SCH ×2 (08:35→20:54)
[2018-10-17] MEDS: Ticagrelor 90 MG Tab PO SCH ×2 (08:35→20:54)
[2018-10-17] MEDS: Calcitriol 0.25 MCG Cap PO SCH (08:35)
[2018-10-17] MEDS: Citalopram 20 MG Tab PO SCH (08:35)
[2018-10-17] MEDS: predniSONE 10 MG Tab PO SCH (08:35)
[2018-10-17] MEDS: Gabapentin 100 MG Cap PO SCH (08:43)
--- NOTE | 2018-10-17 08:57 | PCM.PN ---
- General Info Date of Service: 10/17/18 Admission Dx/Problem (Free Text): Patient states he has no back pain but little lower abdominal pain. No dysuria, pyuria, hematuria. He was having urinary urgency with that's better today. No fevers or chills - Patient Data Vitals - Most Recent: Last Vital Signs Temp 98 F 10/17/18 04:00 Pulse 64 10/17/18 08:33 Resp 18 10/17/18 04:00 BP 141/81 H 10/17/18 08:33 Pulse Ox 96 10/17/18 04:00 Weight - Most Recent: 158 lb I&O - Last 24 Hours: Intake & Output 10/16/18 10/17/18 10/17/18 22:59 06:59 14:59 Intake Total 1346 1358 Output Total 400 900 Balance 946 458 Lab Results Last 24 Hours: Laboratory Results - last 24 hr 10/16/18 10/16/18 Range/Units 07:30 17:39 POC Glucose 327 H D (80-116) mg/dL C-Reactive Protein 19.9 H* (0.5-0.9) mg/dL Adria Results Last 24 Hours: Microbiology 10/16/18 07:30 Aerobic Blood Culture - Preliminary Blood - Venous NO GROWTH AFTER 1 DAY Anaerobic Blood Culture - Preliminary NO GROWTH AFTER 1 DAY 10/16/18 07:40 Aerobic Blood Culture - Preliminary Blood - Venous - Lab Draw NO GROWTH AFTER 1 DAY Anaerobic Blood Culture - Preliminary NO GROWTH AFTER 1 DAY 10/16/18 07:55 Urine Culture - Preliminary Urine, Voided Gram Positive Cocci Med Orders - Current: Current Medications Aspirin (Aspirin) 81 mg PO 1400 [facility] Last Admin: 10/16/18 13:55 Dose: 81 mg Calcitriol (Rocaltrol) 0.5 mcg PO DAILY [facility] Last Admin: 10/17/18 08:35 Dose: 0.5 mcg Carvedilol (Coreg) 6.25 mg PO BID [facility] Last Admin: 10/17/18 08:33 Dose: 6.25 mg Cholecalciferol (Vitamin D3) 1,000 units PO DAILY [facility] Last Admin: 10/17/18 08:34 Dose: 1,000 units Citalopram Hydrobromide (Celexa) 20 mg PO DAILY [facility] Last Admin: 10/17/18 08:35 Dose: 20 mg Fluconazole (Diflucan) 200 mg PO DAILY [facility] Last Admin: 10/17/18 08:34 Dose: 200 mg Gabapentin (Neurontin) 100 mg PO DAILY [facility] Last Admin: 10/17/18 08:43 Dose: 100 mg Glipizide (Glucotrol) 5 mg PO DAILY [facility] Last Admin: 10/17/18 08:34 Dose: 5 mg Hydromorphone HCl (Dilaudid) 0.5 mg IVPUSH Q2H PRN PRN Reason: Pain (severe 7-10) Sodium Chloride (Normal Saline) 1,000 mls @ 150 mls/hr IV ASDIRECTED [facility] Last Admin: 10/17/18 01:45 Dose: 150 mls/hr Piperacillin Sod/Tazobactam (Sod 3.375 gm/ Sodium Chloride) 50 mls @ 100 mls/ hr IV Q6H [facility] Last Admin: 10/17/18 07:44 Dose: 100 mls/hr Insulin Glargine (Lantus Solostar) 15 units SUBCUT 1400 [facility] Last Admin: 10/16/18 14:09 Dose: 15 units Ondansetron HCl (Zofran Odt) 4 mg PO Q4H PRN PRN Reason: nausea, able to take PO Prednisone (Prednisone) 10 mg PO DAILY [facility] Last Admin: 10/17/18 08:35 Dose: 10 mg Sodium Bicarbonate (Sodium Bicarbonate) 650 mg PO BID [facility] Last Admin: 10/17/18 08:35 Dose: 650 mg Tacrolimus (Prograf) 0.5 mg PO BID [facility] Last Admin: 10/17/18 08:34 Dose: 0.5 mg Ticagrelor (Brilinta) 90 mg PO BID [facility] Last Admin: 10/17/18 08:35 Dose: 90 mg Tramadol HCl (Ultram) 50 mg PO Q6H PRN PRN Reason: Pain Last Admin: 10/17/18 08:33 Dose: 50 mg Discontinued Medications Acetaminophen (Tylenol Extra Strength) 1,000 mg PO ONETIME ONE Stop: 10/16/18 07:32 Last Admin: 10/16/18 07:38 Dose: 1,000 mg Enoxaparin Sodium (Lovenox) 40 mg SUBCUT Q24H [facility] Vancomycin HCl 500 mg/Vancomycin HCl 1 gm/ Sodium Chloride 500 mls @ 250 mls/ hr IV ONETIME ONE Stop: 10/16/18 10:14 Vancomycin HCl 500 mg/Vancomycin HCl 1 gm/ Sodium Chloride 500 mls @ 250 mls/ hr IV ONETIME ONE Stop: 10/16/18 10:14 Last Admin: 10/16/18 08:54 Dose: 250 mls/hr Magnesium Oxide (Magnesium Oxide) 800 mg PO ONETIME ONE Stop: 10/16/18 08:46 Last Admin: 10/16/18 08:58 Dose: 800 mg - Exam General: Alert, Oriented, Cooperative GI/Abdominal Exam: Normal Bowel Sounds, Non-Tender Back Exam: No: CVA Tenderness (R), CVA Tenderness (L) Extremities: No Pedal Edema - Problem List & Annotations (1) Palliative care status SNOMED Code(s): 857751008 Code(s): Z51.5 - ENCOUNTER FOR PALLIATIVE CARE Status: Acute Current Visit: No (2) Pancytopenia SNOMED Code(s): 391702506 Code(s): D61.818 - OTHER PANCYTOPENIA Status: Acute Current Visit: No (3) UTI, Urinary tract infectious disease SNOMED Code(s): 68705716 Code(s): N39.0 - URINARY TRACT INFECTION, SITE NOT SPECIFIED Status: Acute Current Visit: No Annotation/Comment:: set up, and will contact about results this weekend. (4) CKD (chronic kidney disease) SNOMED Code(s): 248726920 Code(s): N18.9 - CHRONIC KIDNEY DISEASE, UNSPECIFIED Status: Chronic Current Visit: No Qualifiers: Chronic kidney disease stage: stage 2 (mild) Qualified Code(s): N18.2 - Chronic kidney disease, stage 2 (mild) - Problem List Review Problem List Initiated/Reviewed/Updated: Yes - Plan Plan:: 1. DC IV fluids and saline lock IV. 2. Continue IV antibiotics and wait for identification sensitivity of his urine. 3. Up ad an.
--- NOTE | 2018-10-17 08:57 | CR ---
INDICATION: Short of breath. CHEST: PA and lateral views of the chest 10/16/18 were compared with 08/07/18 and 07/05/18. There is a relatively poor inspiration noted, emphasizing the heart, which most likely is within normal limits in size. The aorta is somewhat tortuous with calcification in the arch. No definite active infiltrate or effusion was seen. Pleural thickening is again noted superolaterally, right greater than left. Bridging hyperostotic changes are noted in the mid to lower thoracic spine. Somewhat flattened diaphragm leaf on the lateral view with mildly prominent AP diameter and some hyperaeration raise question of COPD. IMPRESSION: 1. No definite acute process. 2. Possible COPD - correlate clinically. 3. ASD aorta. 4. DJD spine. MTDD
[2018-10-17] MEDS ORDERED: Enoxaparin 30 MG/0.3 ML Syringe SUBCUT SCH (09:00)
[2018-10-17] MEDS ORDERED: Carboxymethylcellulose Sodium 0.5% Ophth Soln 15 ML Bottle EYERT PRN (12:58)
[2018-10-17] MEDS: Sodium Chloride 0.9% 10 ML Syringe FLUSH PRN (13:34)
[2018-10-17] MEDS: Insulin Glargine,Human Rec. Analog 100 Units/ML 3 ML Pen SUBCUT SCH (13:39)
[2018-10-17] MEDS: Aspirin 81 MG Tab.Chew PO SCH (13:40)
[2018-10-18] MEDS: Piperacillin/Tazobactam 3.375 GM in Sodium Chloride 0.9% 50 ML IV SCH (05:06)
[2018-10-18] MEDS: Sodium Chloride 0.9% 10 ML Syringe FLUSH PRN ×2 (05:08→09:26)
[2018-10-18] MEDS ORDERED: Levofloxacin 500 MG Tab PO ONE (05:19)
--- NOTE | 2018-10-18 07:42 | PCM.PN ---
- General Info Date of Service: 10/18/18 Admission Dx/Problem (Free Text): Patient without complaints. He denies dysuria, pyuria, hematuria, back pain, fevers, chills, nausea or vomiting - Patient Data Vitals - Most Recent: Last Vital Signs Temp 97.6 F 10/18/18 04:00 Pulse 60 10/18/18 04:00 Resp 18 10/18/18 04:00 BP 150/89 H 10/18/18 04:00 Pulse Ox 97 10/18/18 04:00 Weight - Most Recent: 158 lb I&O - Last 24 Hours: Intake & Output 10/17/18 10/18/18 10/18/18 22:59 06:59 14:59 Intake Total 50 1050 Balance 50 1050 Lab Results Last 24 Hours: Laboratory Results - last 24 hr 10/16/18 10/17/18 10/17/18 Range/Units 08:40 06:41 13:39 Creatinine (0.70-1.30) mg/dL Est Cr Clr Drug Dosing mL/min Estimated GFR (MDRD) (>60) POC Glucose 155 H D 264 H D (80-116) mg/dL Ionized Calcium 3.6 L (4.5-5.6) mg/dL 10/17/18 10/18/18 Range/Units 13:53 06:44 Creatinine 1.6 H (0.70-1.30) mg/dL Est Cr Clr Drug Dosing 45.41 mL/min Estimated GFR (MDRD) 45 L (>60) POC Glucose 81 D (80-116) mg/dL Ionized Calcium (4.5-5.6) mg/dL Adria Results Last 24 Hours: Microbiology 10/16/18 07:55 Urine Culture - Final Urine, Voided (Mrsa) Staphylococcus Aureus 10/16/18 07:30 Aerobic Blood Culture - Preliminary Blood - Venous NO GROWTH AFTER 1 DAY Anaerobic Blood Culture - Preliminary NO GROWTH AFTER 1 DAY 10/16/18 07:40 Aerobic Blood Culture - Preliminary Blood - Venous - Lab Draw NO GROWTH AFTER 1 DAY Anaerobic Blood Culture - Preliminary NO GROWTH AFTER 1 DAY Med Orders - Current: Current Medications Artificial Tears (Refresh Tears 0.5%) 1 ml EYERT ASDIRECTED PRN PRN Reason: Dry Eyes Aspirin (Aspirin) 81 mg PO 1400 [facility] Last Admin: 10/17/18 13:40 Dose: 81 mg Calcitriol (Rocaltrol) 0.5 mcg PO DAILY [facility] Last Admin: 10/17/18 08:35 Dose: 0.5 mcg Carvedilol (Coreg) 6.25 mg PO BID [facility] Last Admin: 10/17/18 20:54 Dose: 6.25 mg Cholecalciferol (Vitamin D3) 1,000 units PO DAILY [facility] Last Admin: 10/17/18 08:34 Dose: 1,000 units Citalopram Hydrobromide (Celexa) 20 mg PO DAILY [facility] Last Admin: 10/17/18 08:35 Dose: 20 mg Fluconazole (Diflucan) 200 mg PO DAILY [facility] Last Admin: 10/17/18 08:34 Dose: 200 mg Gabapentin (Neurontin) 100 mg PO DAILY [facility] Last Admin: 10/17/18 08:43 Dose: 100 mg Glipizide (Glucotrol) 5 mg PO DAILY [facility] Last Admin: 10/17/18 08:34 Dose: 5 mg Hydromorphone HCl (Dilaudid) 0.5 mg IVPUSH Q2H PRN PRN Reason: Pain (severe 7-10) Vancomycin HCl 1 gm/ Sodium (Chloride) 250 mls @ 250 mls/hr IV Q24H [facility] Last Admin: 10/17/18 10:28 Dose: 250 mls/hr Insulin Glargine (Lantus Solostar) 15 units SUBCUT 1400 [facility] Last Admin: 10/17/18 13:39 Dose: 15 units Ondansetron HCl (Zofran Odt) 4 mg PO Q4H PRN PRN Reason: nausea, able to take PO Prednisone (Prednisone) 10 mg PO DAILY [facility] Last Admin: 10/17/18 08:35 Dose: 10 mg Sodium Bicarbonate (Sodium Bicarbonate) 650 mg PO BID [facility] Last Admin: 10/17/18 20:54 Dose: 650 mg Sodium Chloride (Saline Flush) 10 ml FLUSH ASDIRECTED PRN PRN Reason: flush IV Last Admin: 10/18/18 05:08 Dose: 10 ml Tacrolimus (Prograf) 0.5 mg PO BID [facility] Last Admin: 10/17/18 20:54 Dose: 0.5 mg Ticagrelor (Brilinta) 90 mg PO BID [facility] Last Admin: 10/17/18 20:54 Dose: 90 mg Tramadol HCl (Ultram) 50 mg PO Q6H PRN PRN Reason: Pain Last Admin: 10/17/18 08:33 Dose: 50 mg Vancomycin HCl (Pharmacy To Dose - Vancomycin) 1 dose .XX ASDIRECTED [facility] Discontinued Medications Acetaminophen (Tylenol Extra Strength) 1,000 mg PO ONETIME ONE Stop: 10/16/18 07:32 Last Admin: 10/16/18 07:38 Dose: 1,000 mg Enoxaparin Sodium (Lovenox) 40 mg SUBCUT Q24H [facility] Sodium Chloride (Normal Saline) 1,000 mls @ 150 mls/hr IV ASDIRECTED [facility] Last Admin: 10/17/18 01:45 Dose: 150 mls/hr Piperacillin Sod/Tazobactam (Sod 3.375 gm/ Sodium Chloride) 50 mls @ 100 mls/ hr IV Q6H [facility] Last Admin: 10/18/18 05:06 Dose: 100 mls/hr Vancomycin HCl 500 mg/Vancomycin HCl 1 gm/ Sodium Chloride 500 mls @ 250 mls/ hr IV ONETIME ONE Stop: 10/16/18 10:14 Vancomycin HCl 500 mg/Vancomycin HCl 1 gm/ Sodium Chloride 500 mls @ 250 mls/ hr IV ONETIME ONE Stop: 10/16/18 10:14 Last Admin: 10/16/18 08:54 Dose: 250 mls/hr Levofloxacin (Levaquin) 500 mg PO ONETIME ONE Stop: 10/18/18 05:20 Last Admin: 10/18/18 05:40 Dose: 500 mg Magnesium Oxide (Magnesium Oxide) 800 mg PO ONETIME ONE Stop: 10/16/18 08:46 Last Admin: 10/16/18 08:58 Dose: 800 mg - Exam General: Alert, Oriented Lungs: Normal Respiratory Effort - Problem List & Annotations (1) Palliative care status SNOMED Code(s): 048296470 Code(s): Z51.5 - ENCOUNTER FOR PALLIATIVE CARE Status: Acute Current Visit: No (2) Pancytopenia SNOMED Code(s): 246424836 Code(s): D61.818 - OTHER PANCYTOPENIA Status: Acute Current Visit: No (3) UTI, Urinary tract infectious disease SNOMED Code(s): 93506870 Code(s): N39.0 - URINARY TRACT INFECTION, SITE NOT SPECIFIED Status: Acute Current Visit: No Annotation/Comment:: set up, and will contact about results this weekend. (4) CKD (chronic kidney disease) SNOMED Code(s): 557121721 Code(s): N18.9 - CHRONIC KIDNEY DISEASE, UNSPECIFIED Status: Chronic Current Visit: No Qualifiers: Chronic kidney disease stage: stage 2 (mild) Qualified Code(s): N18.2 - Chronic kidney disease, stage 2 (mild) (5) MRSA (methicillin resistant staph aureus) culture positive SNOMED Code(s): 383975172 Code(s): Z22.322 - CARRIER OR SUSPECTED CARRIER OF METHICILLIN RESIS STAPH Status: Acute Current Visit: Yes - Problem List Review Problem List Initiated/Reviewed/Updated: Yes - My Orders Last 24 Hours: My Active Orders 10/17/18 08:58 Convert IV to Saline Lock [OM.PC] Routine 10/17/18 10:00 Vancomycin 1 gm Sodium Chloride 0.9% [Normal Saline] 250 ml IV Q24H 10/17/18 10:45 Pharmacy to Dose - Vancomycin 1 dose .XX ASDIRECTED 10/17/18 12:58 Carboxymethylcellulose Sodium [Refresh Tears 0.5%] 1 ml EYERT ASDIRECTED PRN 10/17/18 13:00 Sodium Chloride 0.9% [Saline Flush] 10 ml FLUSH ASDIRECTED PRN 10/17/18 Lunch Consistent Carbohydrate Diet [DIET] 10/19/18 09:30 Communication Order [RC] ONETIME VANCOMYCIN TROUGH [CHEM] Timed - Plan Plan:: 1. Patient will be sent home today on Levaquin. 2. Pharmacy to dose the Levaquin due to chronic renal insufficiency.
--- NOTE | 2018-10-18 07:56 | PCM.DCSUM1 ---
Discharge Summary - Hospital Course Free Text/Narrative:: Hospital course-patient was placed on 2 antibiotics 1 including Vanco. He grew out gram-positive cocci. Symptoms abated quite fast. His IV fluids are stopped the next day his he was adequately hydrated with by mouth fluids. His culture grew out MRSA sensitive to Levaquin. Discharge to home on Levaquin 2050 mg a day for 10 days per pharmacy recommendations. Brief History: Patient presents with concern for possible kidney infection, states that 2 days ago after his transfusion he started having some increased urgency and having to run to the bathroom quickly, sometimes dribbling a little bit before he gets there. Yesterday started noticing some pain in his kidney, also has some low back pain. He reports that everything hurts all over his body , hurts to take a deep breath, hurts to move around, and abdomen hurts. No vomiting or diarrhea. Hx [place] with one stent placed he thinks about a year ago. Symptoms at the time were a funny twinge high in his chest and some chest pressure, he has not had any of those symptoms recently with exertion or at rest , and does not feel like that now. He has not had any palpitations, does not feel lightheaded or dizzy. Goes up steps 2-3 at a time "because I don't want to overdo it" but states asymptomatic when doing so Diagnosis: Stroke: No - Discharge Data Discharge Date: 10/18/18 Discharge Disposition: Home, Self-Care 01 Condition: Good - Discharge Diagnosis/Problem(s) (1) Palliative care status SNOMED Code(s): 906387564 ICD Code: Z51.5 - ENCOUNTER FOR PALLIATIVE CARE Status: Acute Current Visit: No (2) Pancytopenia SNOMED Code(s): 561083492 ICD Code: D61.818 - OTHER PANCYTOPENIA Status: Acute Current Visit: No (3) UTI, Urinary tract infectious disease SNOMED Code(s): 70430134 ICD Code: N39.0 - URINARY TRACT INFECTION, SITE NOT SPECIFIED Status: Acute Current Visit: No Problem Details: UC set up, and will contact about results this weekend. (4) CKD (chronic kidney disease) SNOMED Code(s): 164023133 ICD Code: N18.9 - CHRONIC KIDNEY DISEASE, UNSPECIFIED Status: Chronic Current Visit: No Qualifiers: Chronic kidney disease stage: stage 2 (mild) Qualified Code(s): N18.2 - Chronic kidney disease, stage 2 (mild) (5) MRSA (methicillin resistant staph aureus) culture positive SNOMED Code(s): 933256563 ICD Code: Z22.322 - CARRIER OR SUSPECTED CARRIER OF METHICILLIN RESIS STAPH Status: Acute Current Visit: Yes - Patient Instructions Diet: Diabetic Diet Activity: As Tolerated Driving: May Drive Today Showering/Bathing: May Shower Notify Provider of: Fever, Increased Pain Other/Special Instructions: 1. Recheck with Dr. Andersen in 7-10 days with a UA. - Discharge Plan *PRESCRIPTION DRUG MONITORING PROGRAM REVIEWED*: Yes *COPY OF PRESCRIPTION DRUG MONITORING REPORT IN PATIENT JUNI: No Prescriptions/Med Rec: levoFLOXacin [Levaquin] 250 mg PO DAILY #10 tab Home Medications: Home Meds Cholecalciferol (Vitamin D3) [Vitamin D3] 1,000 unit PO DAILY 06/07/15 [History] Calcitriol [Rocaltrol] 0.5 mcg PO DAILY 08/22/15 [History] Magnesium Oxide [Magnesium] 500 mg PO TID 07/23/17 [History] Sodium Bicarbonate 650 mg PO BID 07/23/17 [History] Aspirin 81 mg PO 1500 09/17/17 [History] predniSONE [Prednisone] 10 mg PO DAILY 09/17/17 [History] Acetaminophen [Tylenol] 650 mg PO Q4H PRN 02/24/18 [History] Tacrolimus [Prograf] 0.5 mg PO BID 02/24/18 [History] glipiZIDE [Glucotrol] 5 mg PO DAILY 02/24/18 [History] Citalopram [Citalopram HBr] 20 mg PO DAILY 08/07/18 [History] Fluconazole [Diflucan] 200 mg PO DAILY 08/07/18 [History] Gabapentin [Neurontin] 100 mg PO DAILY 08/07/18 [History] Insulin Degludec [Tresiba Flextouch U-100] 15 units SQ 1400 08/07/18 [History] Ticagrelor [Brilinta] 90 mg PO BID 08/07/18 [History] traMADol [Ultram] 50 mg PO Q6H PRN #10 tab 08/07/18 [Rx] Carvedilol 6.25 mg PO BID 10/16/18 [History] levoFLOXacin [Levaquin] 250 mg PO DAILY #10 tab 10/18/18 [Rx] Patient Handouts: Deep Vein Thrombosis Referrals: Du Andersen MD [Primary Care Provider] - - Discharge Summary/Plan Comment DC Time >30 min.: No - Patient Data Vitals - Most Recent: Last Vital Signs Temp 97.6 F 10/18/18 04:00 Pulse 60 10/18/18 04:00 Resp 18 10/18/18 04:00 BP 150/89 H 10/18/18 04:00 Pulse Ox 97 10/18/18 04:00 Weight - Most Recent: 158 lb I&O - Last 24 hours: Intake & Output 10/17/18 10/18/18 10/18/18 22:59 06:59 14:59 Intake Total 50 1050 Balance 50 1050 Lab Results - Last 24 hrs: Laboratory Results - last 24 hr 10/16/18 10/17/18 10/17/18 Range/Units 08:40 06:41 13:39 Creatinine (0.70-1.30) mg/dL Est Cr Clr Drug Dosing mL/min Estimated GFR (MDRD) (>60) POC Glucose 155 H D 264 H D (80-116) mg/dL Ionized Calcium 3.6 L (4.5-5.6) mg/dL 10/17/18 10/18/18 Range/Units 13:53 06:44 Creatinine 1.6 H (0.70-1.30) mg/dL Est Cr Clr Drug Dosing 45.41 mL/min Estimated GFR (MDRD) 45 L (>60) POC Glucose 81 D (80-116) mg/dL Ionized Calcium (4.5-5.6) mg/dL MARGARET Results - Last 24 hrs: Microbiology 10/16/18 07:40 Aerobic Blood Culture - Preliminary Blood - Venous - Lab Draw NO GROWTH AFTER 2 DAYS Anaerobic Blood Culture - Preliminary NO GROWTH AFTER 2 DAYS 10/16/18 07:30 Aerobic Blood Culture - Preliminary Blood - Venous NO GROWTH AFTER 2 DAYS Anaerobic Blood Culture - Preliminary NO GROWTH AFTER 2 DAYS 10/16/18 07:55 Urine Culture - Final Urine, Voided (Mrsa) Staphylococcus Aureus Med Orders - Current: Current Medications Artificial Tears (Refresh Tears 0.5%) 1 ml EYERT ASDIRECTED PRN PRN Reason: Dry Eyes Aspirin (Aspirin) 81 mg PO 1400 [facility] Last Admin: 10/17/18 13:40 Dose: 81 mg Calcitriol (Rocaltrol) 0.5 mcg PO DAILY [facility] Last Admin: 10/17/18 08:35 Dose: 0.5 mcg Carvedilol (Coreg) 6.25 mg PO BID [facility] Last Admin: 10/17/18 20:54 Dose: 6.25 mg Cholecalciferol (Vitamin D3) 1,000 units PO DAILY [facility] Last Admin: 10/17/18 08:34 Dose: 1,000 units Citalopram Hydrobromide (Celexa) 20 mg PO DAILY [facility] Last Admin: 10/17/18 08:35 Dose: 20 mg Fluconazole (Diflucan) 200 mg PO DAILY [facility] Last Admin: 10/17/18 08:34 Dose: 200 mg Gabapentin (Neurontin) 100 mg PO DAILY [facility] Last Admin: 10/17/18 08:43 Dose: 100 mg Glipizide (Glucotrol) 5 mg PO DAILY [facility] Last Admin: 10/17/18 08:34 Dose: 5 mg Hydromorphone HCl (Dilaudid) 0.5 mg IVPUSH Q2H PRN PRN Reason: Pain (severe 7-10) Vancomycin HCl 1 gm/ Sodium (Chloride) 250 mls @ 250 mls/hr IV Q24H [facility] Last Admin: 10/17/18 10:28 Dose: 250 mls/hr Insulin Glargine (Lantus Solostar) 15 units SUBCUT 1400 [facility] Last Admin: 10/17/18 13:39 Dose: 15 units Ondansetron HCl (Zofran Odt) 4 mg PO Q4H PRN PRN Reason: nausea, able to take PO Prednisone (Prednisone) 10 mg PO DAILY [facility] Last Admin: 10/17/18 08:35 Dose: 10 mg Sodium Bicarbonate (Sodium Bicarbonate) 650 mg PO BID [facility] Last Admin: 10/17/18 20:54 Dose: 650 mg Sodium Chloride (Saline Flush) 10 ml FLUSH ASDIRECTED PRN PRN Reason: flush IV Last Admin: 10/18/18 05:08 Dose: 10 ml Tacrolimus (Prograf) 0.5 mg PO BID [facility] Last Admin: 10/17/18 20:54 Dose: 0.5 mg Ticagrelor (Brilinta) 90 mg PO BID [facility] Last Admin: 10/17/18 20:54 Dose: 90 mg Tramadol HCl (Ultram) 50 mg PO Q6H PRN PRN Reason: Pain Last Admin: 10/17/18 08:33 Dose: 50 mg Vancomycin HCl (Pharmacy To Dose - Vancomycin) 1 dose .XX ASDIRECTED [facility] Discontinued Medications Acetaminophen (Tylenol Extra Strength) 1,000 mg PO ONETIME ONE Stop: 10/16/18 07:32 Last Admin: 10/16/18 07:38 Dose: 1,000 mg Enoxaparin Sodium (Lovenox) 40 mg SUBCUT Q24H [facility] Sodium Chloride (Normal Saline) 1,000 mls @ 150 mls/hr IV ASDIRECTED [facility] Last Admin: 10/17/18 01:45 Dose: 150 mls/hr Piperacillin Sod/Tazobactam (Sod 3.375 gm/ Sodium Chloride) 50 mls @ 100 mls/ hr IV Q6H [facility] Last Admin: 10/18/18 05:06 Dose: 100 mls/hr Vancomycin HCl 500 mg/Vancomycin HCl 1 gm/ Sodium Chloride 500 mls @ 250 mls/ hr IV ONETIME ONE Stop: 10/16/18 10:14 Vancomycin HCl 500 mg/Vancomycin HCl 1 gm/ Sodium Chloride 500 mls @ 250 mls/ hr IV ONETIME ONE Stop: 10/16/18 10:14 Last Admin: 10/16/18 08:54 Dose: 250 mls/hr Levofloxacin (Levaquin) 500 mg PO ONETIME ONE Stop: 10/18/18 05:20 Last Admin: 10/18/18 05:40 Dose: 500 mg Magnesium Oxide (Magnesium Oxide) 800 mg PO ONETIME ONE Stop: 10/16/18 08:46 Last Admin: 10/16/18 08:58 Dose: 800 mg
[2018-10-18] MEDS: Calcitriol 0.25 MCG Cap PO SCH (08:13)
[2018-10-18] MEDS: Tacrolimus 0.5 MG Cap PO SCH (08:13)
[2018-10-18] MEDS: Ticagrelor 90 MG Tab PO SCH (08:14)
[2018-10-18] MEDS: Sodium Bicarbonate 650 MG Tab PO SCH (08:14)
[2018-10-18] MEDS: Fluconazole 100 MG Tab PO SCH (08:14)
[2018-10-18] MEDS: Carvedilol 6.25 MG Tab PO SCH (08:14)
[2018-10-18] MEDS: Cholecalciferol (Vitamin D3) 1,000 Unit Tab PO SCH (08:14)
[2018-10-18 08:15] VITALS: BP 154/95
[2018-10-18] MEDS: predniSONE 10 MG Tab PO SCH (08:15)
[2018-10-18] MEDS: Citalopram 20 MG Tab PO SCH (08:15)
[2018-10-18] MEDS: glipiZIDE 5 MG Tab PO SCH (08:15)
[2018-10-18] MEDS: traMADol 50 MG Tab PO PRN (08:20)
[2018-10-18] MEDS: Gabapentin 100 MG Cap PO SCH (08:21)
== END 2018-10-18 10:55 | disposition home or self-care (01) | DRG 690 ==
LOC: FB.ED 07:05 → FB.MS 09:23
PROVIDERS: ADMIT Family Medicine; ATTEND Family Medicine
DX: N39.0 Urinary tract infection, site not specified (principal); N17.9 Acute kidney failure, unspecified; Z94.0 Kidney transplant status; D61.818 Other pancytopenia; Z51.5 Encounter for palliative care; B95.62 Methicillin resistant Staphylococcus aureus infection as the cause of diseases classified elsewhere; R79.82 Elevated C-reactive protein (CRP); I12.9 Hypertensive chronic kidney disease with stage 1 through stage 4 chronic kidney disease, or unspecified chronic kidney disease; E11.22 Type 2 diabetes mellitus with diabetic chronic kidney disease; N18.2 Chronic kidney disease, stage 2 (mild); F17.220 Nicotine dependence, chewing tobacco, uncomplicated; Z92.25 Personal history of immunosuppression therapy; D64.9 Anemia, unspecified; M54.5 Low back pain; R39.15 Urgency of urination; R50.9 Fever, unspecified; I25.10 Atherosclerotic heart disease of native coronary artery without angina pectoris; Z79.4 Long term (current) use of insulin; Z79.2 Long term (current) use of antibiotics; Z22.322 Carrier or suspected carrier of Methicillin resistant Staphylococcus aureus; I25.2 Old myocardial infarction; Z95.5 Presence of coronary angioplasty implant and graft; E78.00 Pure hypercholesterolemia, unspecified; M54.9 Dorsalgia, unspecified; G89.29 Other chronic pain; F10.21 Alcohol dependence, in remission; F32.9 Major depressive disorder, single episode, unspecified; F41.9 Anxiety disorder, unspecified; F41.0 Panic disorder [episodic paroxysmal anxiety]; E89.2 Postprocedural hypoparathyroidism; Z90.49 Acquired absence of other specified parts of digestive tract; Z96.643 Presence of artificial hip joint, bilateral; Z86.010 Personal history of colon polyps; Z79.82 Long term (current) use of aspirin; Z79.52 Long term (current) use of systemic steroids; Z79.899 Other long term (current) drug therapy; Z88.7 Allergy status to serum and vaccine; Z88.8 Allergy status to other drugs, medicaments and biological substances
CPT/HCPCS: 36415; 71046; 80053; 81001; 82330; 83605; 83735; 83880; 84484; 85025; 86140; 87040 ×2; 87086; 87088; 87186; 93005; 96365; 96367; 99285; A9270 ×3; J2543; J3370 ×2; J7030; J7040; J7050; 82565; 82962; J1815-GY

== ENCOUNTER 2018-10-27 14:26 | Emergency (ER) | payer MEDICARE, MEDICAID ==
--- NOTE | 2018-10-27 15:28 | EDM.PDOC ---
ED HPI GENERAL MEDICAL PROBLEM - General Chief Complaint: Lower Extremity Injury/Pain Stated Complaint: LEG PAIN Time Seen by Provider: 10/27/18 15:16 Source of Information: Reports: Patient, Old Records History Limitations: Reports: No Limitations - History of Present Illness INITIAL COMMENTS - FREE TEXT/NARRATIVE: Hollis returns to [facility] ED with a 4 day hx of painful cramps in the posterior thighs, aggravated with bending and walking. There is no injury hx. He is reportedly med compliant. He believes the Levaquin 250 mg tab qd for UTI is responsible. He gas been on this medication since October 18. He is a renal transplant patient with multiple CVD issues. He has tried no meds. MARC LEGS Pain Score (Numeric/FACES): 8 - Related Data Allergies Allergy/AdvReac Type Severity Reaction Status Date / Time No Known Allergies Allergy Verified 10/27/18 14:40 Home Meds: Home Meds Cholecalciferol (Vitamin D3) [Vitamin D3] 1,000 unit PO DAILY 06/07/15 [History] Calcitriol [Rocaltrol] 0.5 mcg PO DAILY 08/22/15 [History] Magnesium Oxide [Magnesium] 500 mg PO TID 07/23/17 [History] Sodium Bicarbonate 650 mg PO BID 07/23/17 [History] Aspirin 81 mg PO 1500 09/17/17 [History] predniSONE [Prednisone] 10 mg PO DAILY 09/17/17 [History] Acetaminophen [Tylenol] 650 mg PO Q4H PRN 02/24/18 [History] Tacrolimus [Prograf] 0.5 mg PO BID 02/24/18 [History] glipiZIDE [Glucotrol] 5 mg PO DAILY 02/24/18 [History] Citalopram [Citalopram HBr] 20 mg PO DAILY 08/07/18 [History] Fluconazole [Diflucan] 200 mg PO DAILY 08/07/18 [History] Gabapentin [Neurontin] 100 mg PO DAILY 08/07/18 [History] Insulin Degludec [Tresiba Flextouch U-100] 15 units SQ 1400 08/07/18 [History] Ticagrelor [Brilinta] 90 mg PO BID 08/07/18 [History] traMADol [Ultram] 50 mg PO Q6H PRN #10 tab 08/07/18 [Rx] Carvedilol 6.25 mg PO BID 10/16/18 [History] levoFLOXacin [Levaquin] 250 mg PO DAILY #10 tab 10/18/18 [Rx] Past Medical History HEENT History: Reports: Impaired Vision Other HEENT History: Pt wears glasses Cardiovascular History: Reports: High Cholesterol, [place], Stents, Other (See Below) Other Cardiovascular History: viral menigitis 2015 (also "had MS 09/2017 went to [facility] they put in a stent" this recorded on 09/14/17) Respiratory History: Reports: SOB Gastrointestinal History: Reports: Cholelithiasis, Colon Polyp, Diverticulosis, Hemorrhoids Genitourinary History: Reports: Renal Disease, UTI, Recurrent, Other (See Below) Other Genitourinary History: kidney transplant (2001) pts fistula was removed early may 2017 from left arm Musculoskeletal History: Reports: Back Pain, Chronic, Other (See Below) Other Musculoskeletal History: has lump on neck vein and will need it removed Neurological History: Reports: Other (See Below) Other Neuro History: occ headache when blood is low Psychiatric History: Reports: Addiction, Anxiety, Depression, Panic Attack, Other (See Below) Other Psychiatric History: gets mildly depressed. POST ALCOHOLIC 1998 Endocrine/Metabolic History: Reports: Diabetes, Type II, Hypoparathyroidism Hematologic History: Reports: Anemia, Blood Transfusion(s) Other Hematologic History: myelodysplastic syndrome Immunologic History: Reports: Solid Organ Transplant Other Immunologic History: kidney transplant 2001 Dermatologic History: Reports: None - Infectious Disease History Infectious Disease History: Reports: Chicken Pox, Measles, Meningitis, Mumps - Past Surgical History Head Surgeries/Procedures: Reports: None HEENT Surgical History: Reports: None Cardiovascular Surgical History: Reports: Carotid Stents Respiratory Surgical History: Reports: None GI Surgical History: Reports: Appendectomy, Cholecystectomy, Colonoscopy Male Surgical History: Reports: Other (See Below) Other Male Surgeries/Procedures: kidney transplant in 2001 Endocrine Surgical History: Reports: Other (See Below) Other Endocrine Surgeries/Procedures: had thyroid removed Musculoskeletal Surgical History: Reports: Hip Replacement Other Musculoskeletal Surgeries/Procedures:: both hips-replaced Dermatological Surgical History: Reports: None Social & Family History - Family History Family Medical History: Noncontributory Cardiac: Reports: Other (See Below) Other Cardiac Family History: Brother had bypass OBGYN: Reports: Endocrine/Metabolic: Reports: Diabetes, type II - Tobacco Use Smoking Status *Q: Never Smoker - Caffeine Use Caffeine Use: Reports: Coffee Other Caffeine Use: 2-3 cups per day Caffeine Use Comment: two cups a day - Recreational Drug Use Recreational Drug Use: No Review of Systems - Review of Systems Review Of Systems: ROS reveals no pertinent complaints other than HPI. ED EXAM, GENERAL - Physical Exam Exam: See Below Exam Limited By: No Limitations General Appearance: Alert, WD/WN, Anxious, Mild Distress (with flexion at the hips and at the knees) Throat/Mouth: Normal Inspection, Normal Oropharynx Head: Normocephalic Neck: Normal Inspection, Supple, Non-Tender Respiratory/Chest: Lungs Clear Cardiovascular: Regular Rate, Rhythm, No Murmur GI/Abdominal: Normal Bowel Sounds, Soft, Non-Tender, No Organomegaly, No Distention, No Mass (Male) Exam: Deferred Rectal (Males) Exam: Deferred Back Exam: Normal Inspection Extremities: Normal Inspection, Non-Tender, No Pedal Edema, Normal Capillary Refill, Limited Range of Motion (at hips and knees with flexion reproduces painful cramps) Neurological: Alert, Oriented, Normal Cognition Psychiatric: Normal Affect, Anxious Skin Exam: Warm, Dry, Intact, Normal Color Lymphatic: No Adenopathy Course - Vital Signs Text/Narrative:: Following assessment, some screening labwork was performed, noting Hgb 7.1 gm, WBC 3,500, plts 78,000; Na 136 meq/l, K 5.1 meq/l, Mg 1.8, Ca 7.1, alb 2.7; renal function unchanged. He has an appt for transplant follow up tomorrow, and his low Hgb can be addressed. He remained stable at the ED. Last Recorded V/S: Last Vital Signs Temp 36.7 C 10/27/18 14:30 Pulse 71 10/27/18 14:30 Resp 17 10/27/18 14:30 BP 137/80 10/27/18 14:30 Pulse Ox 100 10/27/18 14:30 - Orders/Labs/Meds Labs: Laboratory Tests 10/27/18 10/27/18 10/27/18 Range/Units 15:33 15:33 15:47 WBC 3.5 L (4.5-12.0) X10-3/uL RBC 2.20 L (4.30-5.75) x10(6)uL Hgb 7.1 L (13.5-17.8) g/dL Hct 20.1 L* (30.0-51.3) % MCV 91.5 (80-96) fL MCH 32.2 (27.7-33.6) pg MCHC 35.2 (32.2-35.4) g/dL RDW 12.7 (11.5-15.5) % Plt Count 78 L (125-369) X10(3)uL MPV 9.2 (7.4-10.4) fL Neut % (Auto) 77.8 (46-82) % Lymph % (Auto) 14.2 (13-37) % T[place] % (Auto) 5.4 (4-12) % Eos % (Auto) 1 (1.0-5.0) % Baso % (Auto) 2 (0-2) % Neut # (Auto) 2.7 (1.6-8.3) # Lymph # (Auto) 0.5 L (0.6-5.0) # Tarrant # (Auto) 0.2 (0.0-1.3) # Eos # (Auto) 0.0 (0.0-0.8) # Baso # (Auto) 0.1 (0.0-0.2) # Sodium 136 (135-145) mmol/L Potassium 5.1 (3.5-5.3) mmol/L Chloride 100 (100-110) mmol/L Carbon Dioxide 29 (21-32) mmol/L BUN 45 H (7-18) mg/dL Creatinine 1.7 H (0.70-1.30) mg/dL Est Cr Clr Drug Dosing 42.74 mL/min Estimated GFR (MDRD) 42 L (>60) BUN/Creatinine Ratio 26.5 H (9-20) Glucose 298 H D (80-116) mg/dL Calcium 7.1 L (8.6-10.2) mg/dL Magnesium 1.8 (1.8-2.5) mg/dL Total Bilirubin 0.4 (0.1-1.3) mg/dL AST 33 H D (5-25) IU/L ALT 57 H D (12-36) U/L Alkaline Phosphatase 206 H (56-112) IU/L Creatine Kinase 16 L (60-160) IU/L Total Protein 7.2 (6.0-8.0) g/dL Albumin 2.7 L (3.5-5.2) g/dL Globulin 4.5 g/dL Albumin/Globulin Ratio 0.6 Urine Color Yellow (YELLOW) Urine Appearance Clear (CLEAR) Urine pH 7.0 H (5.0-6.5) Ur Specific Colton 1.005 L (1.010-1.025) Urine Protein Negative (NEGATIVE) mg/dL Urine Glucose (UA) 250 H (NORMAL) mg/dL Urine Ketones Negative (NEGATIVE) mg/dL Urine Occult Blood Large H (NEGATIVE) Urine Nitrite Negative (NEGATIVE) Urine Bilirubin Negative (NEGATIVE) Urine Urobilinogen Normal (NEGATIVE) mg/dL Ur Leukocyte Esterase Negative (NEGATIVE) Urine RBC 10-20 H (0-5) Urine WBC 0-5 (0-5) Ur Squamous Epith Cells Few H (NS,R,O) Urine Bacteria Few H (NS) Departure - Departure Time of Disposition: 17:18 Disposition: Home, Self-Care 01 Condition: Fair Clinical Impression: Muscle cramps Anemia Qualifiers: Anemia type: due to chronic kidney disease Chronic kidney disease stage: stage 3 (moderate) Qualified Code(s): N18.3 - Chronic kidney disease, stage 3 ( moderate); D63.1 - Anemia in chronic kidney disease - Discharge Information *PRESCRIPTION DRUG MONITORING PROGRAM REVIEWED*: Not Applicable *COPY OF PRESCRIPTION DRUG MONITORING REPORT IN PATIENT JUNI: Not Applicable Instructions: Muscle Cramps and Spasms, [id number] Referrals: Du Andersen MD [Primary Care Provider] - Forms: ED Department Discharge Additional Instructions: CONTINUE YOUR FOLLOW-UP WITH YOUR PRIMARY CARE PROVIDER TOMORROW. - Problem List & Annotations (1) Anemia SNOMED Code(s): 877102916 Code(s): D64.9 - ANEMIA, UNSPECIFIED Status: Acute Current Visit: Yes Annotation/Comment:: See Renal Transplant provider tomorrow regarding managment of chronic anemia. Qualifiers: Anemia type: due to chronic kidney disease Chronic kidney disease stage: stage 3 (moderate) Qualified Code(s): N18.3 - Chronic kidney disease, stage 3 (moderate); D63.1 - Anemia in chronic kidney disease (2) Muscle cramps SNOMED Code(s): 51279973 Code(s): R25.2 - CRAMP AND SPASM Status: Acute Current Visit: Yes Annotation/Comment:: Muscle cramps likely multifactorial. He will seen Renal Transplant provider tomorrow for suggested management. - Problem List Review Problem List Initiated/Reviewed/Updated: Yes - Assessment/Plan Plan: Follow up with Renal Transplant provider tomorrow.
[2018-10-27 17:29] VITALS: BP 147/86
== END 2018-10-27 17:20 | disposition home or self-care (01) ==
LOC: FB.ED 14:26
DX: R25.2 Cramp and spasm (principal); N18.3 Chronic kidney disease, stage 3 (moderate); D63.1 Anemia in chronic kidney disease; E11.22 Type 2 diabetes mellitus with diabetic chronic kidney disease; I25.2 Old myocardial infarction; Z95.5 Presence of coronary angioplasty implant and graft; Z79.4 Long term (current) use of insulin; Z79.899 Other long term (current) drug therapy; Z90.49 Acquired absence of other specified parts of digestive tract; Z79.82 Long term (current) use of aspirin
CPT/HCPCS: 36415; 80053; 81001; 82550; 83735; 85025; 99283

== ENCOUNTER 2018-11-14 09:58 | Emergency (ER) | payer MEDICARE, MEDICAID ==
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
[2018-11-14] MEDS ORDERED: Acetaminophen/HYDROcodone 325-5 MG Tab PO ONE (10:25)
[2018-11-14 12:41] VITALS: BP 157/93; PULSE 67
== END 2018-11-14 12:43 | disposition home or self-care (01) ==
LOC: FB.ED 09:58
DX: S22.31XA Fracture of one rib, right side, initial encounter for closed fracture (principal); S20.211A Contusion of right front wall of thorax, initial encounter; S70.01XA Contusion of right hip, initial encounter; F41.9 Anxiety disorder, unspecified; F32.9 Major depressive disorder, single episode, unspecified; E11.9 Type 2 diabetes mellitus without complications; I25.10 Atherosclerotic heart disease of native coronary artery without angina pectoris; I25.2 Old myocardial infarction; F17.210 Nicotine dependence, cigarettes, uncomplicated; Z86.2 Personal history of diseases of the blood and blood-forming organs and certain disorders involving the immune mechanism; Z79.82 Long term (current) use of aspirin; Z79.4 Long term (current) use of insulin; Z79.899 Other long term (current) drug therapy; Z90.49 Acquired absence of other specified parts of digestive tract; V28.4XXA Motorcycle driver injured in noncollision transport accident in traffic accident, initial encounter
CPT/HCPCS: 71046; 71101; 73502; 99283; A9270

== ENCOUNTER 2018-11-21 07:18 | Emergency (ER) | payer MEDICARE, MEDICAID ==
[2018-11-21] MEDS ORDERED: Sodium Chloride 0.9% 1,000 ML IV SCH (07:45)
[2018-11-21] MEDS ORDERED: Piperacillin/Tazobactam 4.5 GM in Sodium Chloride 0.9% 100 ML IV SCH (08:15)
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
[2018-11-21] MEDS ORDERED: Sodium Chloride 0.9% 250 ML IV SCH (08:45)
[2018-11-21] MEDS ORDERED: Calcium Gluconate 10% 1 GM/10 ML SDV IVPUSH ONE (08:57)
[2018-11-21] MEDS ORDERED: Sodium Chloride 0.9% 10 ML Syringe FLUSH PRN (08:59)
[2018-11-21] MEDS ORDERED: Saccharomyces Boulardii (Probiotic) 250 MG Cap PO SCH (09:00)
[2018-11-21] MEDS ORDERED: Magnesium Sulfate/Water 2 GM in Premix Bag 1 BAG IV ONE (09:08)
[2018-11-21] MEDS ORDERED: Sodium Bicarbonate 8.4% 50 MEQ/50 ML Syringe IVPUSH ONE (09:11)
[2018-11-21] MEDS ORDERED: Insulin Regular, Human 100 Units/ML 3 ML Vial IV ONE (09:12)
[2018-11-21] MEDS ORDERED: 50% Dextrose in Water 50 ML Syringe IVPUSH ONE (09:12)
[2018-11-21] MEDS ORDERED: Sodium Chloride 0.9% 1,000 ML IV ONE (09:37)
--- NOTE | 2018-11-21 10:43 | CR ---
INDICATION: Shortness of breath. CHEST: An AP upright portable view of the chest, 11/21/18, was compared with and 10/16/18. Poor inspiration is noted, emphasizing the heart, which likely is enlarged. Pulmonary vasculature appears prominent, suggesting the possibility of CHF. Bilateral infiltration, alveolar type, may be on the basis of acute pulmonary edema, aspiration pneumonia, or other unusual pneumonia. Some atelectatic change may also be present in these areas. IMPRESSION: Findings suspicious for CHF with acute pulmonary edema. However, the possibility of additional abnormality, such as aspiration pneumonia, would also be a consideration. MTDD
[2018-11-21] MEDS ORDERED: diphenhydrAMINE 50 MG/ML SDV IVPUSH ONE (12:04)
[2018-11-21 12:38] VITALS: BP 150/76; PULSE 118
== END 2018-11-21 12:30 ==
LOC: FB.ED 07:18
DX: A41.9 Sepsis, unspecified organism (principal); I50.9 Heart failure, unspecified; N17.9 Acute kidney failure, unspecified; R94.5 Abnormal results of liver function studies; E87.5 Hyperkalemia; D46.9 Myelodysplastic syndrome, unspecified; R09.02 Hypoxemia; N30.00 Acute cystitis without hematuria; D63.1 Anemia in chronic kidney disease; N18.3 Chronic kidney disease, stage 3 (moderate); E78.00 Pure hypercholesterolemia, unspecified; I25.10 Atherosclerotic heart disease of native coronary artery without angina pectoris; I25.2 Old myocardial infarction; F32.9 Major depressive disorder, single episode, unspecified; F41.9 Anxiety disorder, unspecified; E11.9 Type 2 diabetes mellitus without complications; F17.200 Nicotine dependence, unspecified, uncomplicated; Z79.899 Other long term (current) drug therapy; Z79.82 Long term (current) use of aspirin; Z79.4 Long term (current) use of insulin; Z94.0 Kidney transplant status
CPT/HCPCS: 36415; 36430; 71045; 80053; 81001; 82962; 83605; 83735; 84132; 85025; 86140; 86850; 86900; 86901; 86920; 86922; 87040; 87086; 87088; 87186; 93005; 94660; 96361; 96365; 96367; 96375; 99285; A4216; A9270; J0610; J1200; J1815; J2543; J3370; J3475; J7030; J7050; P9016; 99291

== ENCOUNTER 2019-01-20 10:38 | Emergency (ER) | payer MEDICARE, MEDICAID ==
[2019-01-20] MEDS ORDERED: Sulfamethoxazole/Trimethoprim 800-160 MG Tab PO ONE (14:13)
--- NOTE | 2019-01-20 14:24 | EDM.PDOC ---
ED HPI GENERAL MEDICAL PROBLEM - General Chief Complaint: General Time Seen by Provider: 01/20/19 11:15 Source of Information: Reports: Patient, Old Records History Limitations: Reports: No Limitations - History of Present Illness INITIAL COMMENTS - FREE TEXT/NARRATIVE: patient comes in today with concern for feeling slightly weak and some generalized muscle aches. States he was seen in clinic yesterday and had his blood drawn, and feels like he is low today. Mostly he just complains of feeling very tired. He states that the clinic called and told him his hemoglobin was okay, which she is not certain it is correct. He is also wanting to leave for [place] tomorrow morning with some friends. Patient denies shaking chills, fever, cough, shortness of breath, feeling lightheaded or dizzy. He has some nasal stuffiness and a slight sore throat which is chronic. He denies any abdominal pain, nausea or vomiting. He has occasionally noticed that his urine smells extremely strong. He didn't notice that so much this morning, and he is not having any other symptoms such as dysuria, increased urinary frequency, or abdominal cramping. He does not have any abnormal skin lesions anywhere that could be infected. He has noted his skin is a little dry lately and has had to use increased lotion. Occasional congestive snuff, no smoking. No alcohol or other drug use, taking his prescribed medications regularly. patient with very complex past medical history, most recently in November he was transferred to [place] with sepsis, anemia and acute renal failure and urine culture positive for MRSA. - Related Data Allergies Allergy/AdvReac Type Severity Reaction Status Date / Time No Known Allergies Allergy Verified 12/17/18 11:24 Home Meds: Home Meds Cholecalciferol (Vitamin D3) [Vitamin D3] 1,000 unit PO DAILY 06/07/15 [History] Calcitriol [Rocaltrol] 0.5 mcg PO DAILY 08/22/15 [History] Magnesium Oxide [Magnesium] 500 mg PO TID 07/23/17 [History] Sodium Bicarbonate 650 mg PO BID 07/23/17 [History] Aspirin 81 mg PO 1500 09/17/17 [History] predniSONE [Prednisone] 10 mg PO DAILY 09/17/17 [History] Acetaminophen [Tylenol] 650 mg PO Q4H PRN 02/24/18 [History] Tacrolimus [Prograf] 0.5 mg PO BID 02/24/18 [History] glipiZIDE [Glucotrol] 5 mg PO DAILY 02/24/18 [History] Citalopram [Citalopram HBr] 20 mg PO DAILY 08/07/18 [History] Fluconazole [Diflucan] 200 mg PO DAILY 08/07/18 [History] Gabapentin [Neurontin] 300 mg PO BID 08/07/18 [History] Insulin Degludec [Tresiba Flextouch U-100] 15 units SQ 1400 08/07/18 [History] Ticagrelor [Brilinta] 90 mg PO BID 08/07/18 [History] traMADol [Ultram] 50 mg PO Q6H PRN #10 tab 08/07/18 [Rx] Carvedilol 6.25 mg PO BID 10/16/18 [History] Acetaminophen/HYDROcodone [[place] 325-5 MG] 1 - 2 tab PO Q6H PRN #14 tab [Rx] Sulfamethoxazole/Trimethoprim [Septra DS] 1 each PO BID 10 Days #20 tab [Rx] Past Medical History HEENT History: Reports: Impaired Vision Other HEENT History: Pt wears glasses Cardiovascular History: Reports: CAD, High Cholesterol, AL, Stents, Other (See Below) Other Cardiovascular History: viral menigitis 2015 (also "had AL 09/2017 went to [place] they put in a stent" this recorded on 09/14/17) Respiratory History: Reports: SOB Gastrointestinal History: Reports: Cholelithiasis, Colon Polyp, Diverticulosis, Hemorrhoids Genitourinary History: Reports: Renal Disease, UTI, Recurrent, Other (See Below) Other Genitourinary History: kidney transplant (2001) pts fistula was removed early may 2017 from left arm Musculoskeletal History: Reports: Back Pain, Chronic Other Musculoskeletal History: has lump on neck vein and will need it removed Neurological History: Reports: Other (See Below) Other Neuro History: Cryptococcal meningitis Psychiatric History: Reports: Addiction, Anxiety, Depression, Panic Attack, Other (See Below) Other Psychiatric History: gets mildly depressed. POST ALCOHOLIC 1998 Endocrine/Metabolic History: Reports: Diabetes, Type II, Hypoparathyroidism Hematologic History: Reports: Anemia, Blood Transfusion(s) Other Hematologic History: myelodysplastic syndrome Immunologic History: Reports: Solid Organ Transplant Other Immunologic History: kidney transplant 2001 Dermatologic History: Reports: None - Infectious Disease History Infectious Disease History: Reports: Chicken Pox, Measles, Mumps - Past Surgical History Head Surgeries/Procedures: Reports: None Cardiovascular Surgical History: Reports: Carotid Stents GI Surgical History: Reports: Appendectomy, Cholecystectomy, Colonoscopy Male Surgical History: Reports: Other (See Below) Other Male Surgeries/Procedures: kidney transplant in 2001 Endocrine Surgical History: Reports: Other (See Below) Other Endocrine Surgeries/Procedures: had thyroid removed Musculoskeletal Surgical History: Reports: Hip Replacement Other Musculoskeletal Surgeries/Procedures:: both hips-replaced Dermatological Surgical History: Reports: None Social & Family History - Family History Family Medical History: Noncontributory Cardiac: Reports: CAD, Other (See Below) Other Cardiac Family History: Brother had bypass OBGYN: Reports: Endocrine/Metabolic: Reports: Diabetes, type II - Tobacco Use Smoking Status *Q: Former Smoker Tobacco Use Within Last Twelve Months: Smokeless Tobacco - Caffeine Use Caffeine Use: Reports: Soda Other Caffeine Use: 2-3 cups per day Caffeine Use Comment: two cups a day - Alcohol Use Alcohol Use History: No - Recreational Drug Use Recreational Drug Use: No - Living Situation & Occupation Living situation: Reports: (Here with his ) ED ROS GENERAL - Review of Systems Review Of Systems: See Below Constitutional: Reports: Malaise. Denies: Fever, Chills, Night Sweats, Diaphoresis, Decreased Appetite HEENT: Reports: No Symptoms Respiratory: Reports: No Symptoms. Denies: Shortness of Breath, Pleuritic Chest Pain, Cough Cardiovascular: Reports: No Symptoms. Denies: Chest Pain, Blood Pressure Problem, Dyspnea on Exertion, Lightheadedness, Palpitations, Syncope Endocrine: Reports: No Symptoms GI/Abdominal: Denies: Abdominal Pain, Constipation, Diarrhea, Nausea, Vomiting : Reports: Other (CHPI). Denies: Dysuria, Frequency, Urgency Musculoskeletal: Reports: Muscle Pain Skin: Denies: Wound, Urticaria Neurological: Denies: Confusion, Dizziness, Headache, Numbness, Tingling, Weakness Psychiatric: Reports: No Symptoms Hematologic/Lymphatic: Denies: Easy Bleeding, Easy Bruising Immunologic: Reports: No Symptoms ED EXAM, GENERAL - Physical Exam Exam: See Below Free Text/Narrative:: Gen.: Alert, usual affect no acute distress and nontoxic appearing. Throat is without erythema, mucous members are moist and there is no tonsillar enlargement or exudates. Slight nasal congestion is noted. Neck is supple and has no cervical lymphadenopathy. Lungs are clear throughout with no wheezes or crackles and heart is regular rate and rhythm. Abdomen positive bowel sounds, soft nondistended nontender with no rebound or guarding. No tenderness over his finding kidney. Peripheral pulses +2 in the upper and lower extremities and he has no lower extremity edema. No obvious skin lesions or rashes are noted. He has no joint swelling, is able to ambulate with a cane, equal strength bilaterally. Course - Vital Signs Text/Narrative:: initial impression: Patient with significant immunosuppression due to transplanted kidney as well as diabetes, very recent infection resulting in sepsis for which he was transferred to [place]. Nonfocal on exam except for possibly a funny smell in his urine. Lungs are clear and he has no cough. He doesn't have symptoms of a URI at this time. Abdomen is soft and nontender with no change in appetite or bowel habits. will repeat CBC, check BMP, CRP, UA. - Orders/Labs/Meds Labs: Laboratory Tests 01/20/19 01/20/19 01/20/19 Range/Units 11:50 11:50 11:50 WBC 3.8 L (4.5-12.0) X10-3/uL RBC 2.47 L (4.30-5.75) x10(6)uL Hgb 7.8 L (13.5-17.8) g/dL Hct 22.2 L (30.0-51.3) % MCV 90.1 (80-96) fL MCH 31.5 (27.7-33.6) pg MCHC 35.0 (32.2-35.4) g/dL RDW 13.1 (11.5-15.5) % Plt Count 26 L* (125-369) X10(3)uL MPV 8.8 (7.4-10.4) fL Neut % (Auto) 64.5 (46-82) % Lymph % (Auto) 23.1 (13-37) % [place] % (Auto) 10.3 (4-12) % Eos % (Auto) 1 (1.0-5.0) % Baso % (Auto) 1 (0-2) % Neut # (Auto) 2.4 (1.6-8.3) # Lymph # (Auto) 0.9 (0.6-5.0) # [place] # (Auto) 0.4 (0.0-1.3) # Eos # (Auto) 0.1 (0.0-0.8) # Baso # (Auto) 0.0 (0.0-0.2) # Sodium 137 (135-145) mmol/L Potassium 4.4 D (3.5-5.3) mmol/L Chloride 101 D (100-110) mmol/L Carbon Dioxide 27 (21-32) mmol/L BUN 38 H D (7-18) mg/dL Creatinine 1.8 H (0.70-1.30) mg/dL Est Cr Clr Drug Dosing TNP Estimated GFR (MDRD) 39 L (>60) BUN/Creatinine Ratio 21.1 H (9-20) Glucose 285 H D (80-116) mg/dL Calcium 8.5 L (8.6-10.2) mg/dL C-Reactive Protein 3.9 H* (0.5-0.9) mg/dL Urine Color (YELLOW) Urine Appearance (CLEAR) Urine pH (5.0-6.5) Ur Specific [place] (1.010-1.025) Urine Protein (NEGATIVE) mg/dL Urine Glucose (UA) (NORMAL) mg/dL Urine Ketones (NEGATIVE) mg/dL Urine Occult Blood (NEGATIVE) Urine Nitrite (NEGATIVE) Urine Bilirubin (NEGATIVE) Urine Urobilinogen (NEGATIVE) mg/dL Ur Leukocyte Esterase (NEGATIVE) Urine RBC (0-5) Urine WBC (0-5) Ur Squamous Epith Cells (NS,R,O) Urine Bacteria (NS) 01/20/19 Range/Units 12:56 WBC (4.5-12.0) X10-3/uL RBC (4.30-5.75) x10(6)uL Hgb (13.5-17.8) g/dL Hct (30.0-51.3) % MCV (80-96) fL MCH (27.7-33.6) pg MCHC (32.2-35.4) g/dL RDW (11.5-15.5) % Plt Count (125-369) X10(3)uL MPV (7.4-10.4) fL Neut % (Auto) (46-82) % Lymph % (Auto) (13-37) % [place] % (Auto) (4-12) % Eos % (Auto) (1.0-5.0) % Baso % (Auto) (0-2) % Neut # (Auto) (1.6-8.3) # Lymph # (Auto) (0.6-5.0) # [place] # (Auto) (0.0-1.3) # Eos # (Auto) (0.0-0.8) # Baso # (Auto) (0.0-0.2) # Sodium (135-145) mmol/L Potassium (3.5-5.3) mmol/L Chloride (100-110) mmol/L Carbon Dioxide (21-32) mmol/L BUN (7-18) mg/dL Creatinine (0.70-1.30) mg/dL Est Cr Clr Drug Dosing Estimated GFR (MDRD) (>60) BUN/Creatinine Ratio (9-20) Glucose (80-116) mg/dL Calcium (8.6-10.2) mg/dL C-Reactive Protein (0.5-0.9) mg/dL Urine Color Yellow (YELLOW) Urine Appearance Clear (CLEAR) Urine pH 6.0 (5.0-6.5) Ur Specific [place] 1.005 L (1.010-1.025) Urine Protein Negative (NEGATIVE) mg/dL Urine Glucose (UA) >1000 H (NORMAL) mg/dL Urine Ketones Negative (NEGATIVE) mg/dL Urine Occult Blood Moderate H (NEGATIVE) Urine Nitrite Negative (NEGATIVE) Urine Bilirubin Negative (NEGATIVE) Urine Urobilinogen Normal (NEGATIVE) mg/dL Ur Leukocyte Esterase Large H (NEGATIVE) Urine RBC 5-10 H (0-5) Urine WBC 10-20 H (0-5) Ur Squamous Epith Cells Occasional (NS,R,O) Urine Bacteria Few H (NS) Meds: Medications Discontinued Medications Generic Name Dose Route Start Last Admin Trade Name Freq PRN Reason Stop Dose Admin Trimethoprim/Sulfamethoxazole 1 tab 01/20/19 14:13 01/20/19 14:20 Septra Ds PO 01/20/19 14:14 1 tab ONETIME ONE Administration - Re-Assessments/Exams Free Text/Narrative Re-Assessment/Exam: 01/20/19 labs reviewed. WBC similar to yesterday, slightly low at 3.8. Hb also similar at 7.8. Platelets dropped down to 26 which appears new. Creatinine 1.8 which appears to be about baseline. UA concerning for infection. Patient still feeling otherwise fine, wandering around department. Does not want hospital admission if possible. Discussed risk of worsening infection with plan of upcoming trip leaving in the morning, he decides he probably won't go. Reviewed previous cultures, discussed with pharmacy, will put on Bactrim twice daily. I think he is ok for close outpatient followup at this time given lack of other symptoms, although we discussed at length the risks of this approach with low platelets and WBCs and emphasized the need to return if any worsening. Departure - Departure Time of Disposition: 14:44 Disposition: Home, Self-Care 01 Condition: Fair Clinical Impression: UTI (urinary tract infection) - Discharge Information *PRESCRIPTION DRUG MONITORING PROGRAM REVIEWED*: Not Applicable *COPY OF PRESCRIPTION DRUG MONITORING REPORT IN PATIENT JUNI: Not Applicable Prescriptions: Sulfamethoxazole/Trimethoprim [Septra DS] 1 each PO BID 10 Days #20 tab Referrals: Du Andersen MD [Primary Care Provider] - Forms: ED Department Discharge Additional Instructions: if worsening, return to ER recommend contact PCP office tomorrow regarding labs and need redraw blood end of week or possibly sooner
[2019-01-20 16:16] VITALS: PULSE 76
[2019-01-20 16:17] VITALS: BP 113/71
== END 2019-01-20 14:40 | disposition home or self-care (01) ==
LOC: FB.ED 10:38
DX: N39.0 Urinary tract infection, site not specified (principal); I25.10 Atherosclerotic heart disease of native coronary artery without angina pectoris; E11.9 Type 2 diabetes mellitus without complications; I25.2 Old myocardial infarction; E78.00 Pure hypercholesterolemia, unspecified; F41.0 Panic disorder [episodic paroxysmal anxiety]; F32.9 Major depressive disorder, single episode, unspecified; Z86.2 Personal history of diseases of the blood and blood-forming organs and certain disorders involving the immune mechanism; Z87.891 Personal history of nicotine dependence; Z79.82 Long term (current) use of aspirin; Z79.4 Long term (current) use of insulin; Z79.899 Other long term (current) drug therapy
CPT/HCPCS: 36415; 80048; 81001; 85025; 86140; 87086; 87088; 87186; 99284; A9270

== ENCOUNTER 2019-01-23 17:50 | Observation (INO) | payer MEDICARE, MEDICAID ==
[2019-01-23] MEDS ORDERED: Sodium Chloride 0.9% 1,000 ML IV SCH ×2 (19:35→20:40)
[2019-01-23] MEDS ORDERED: Insulin Regular, Human 100 Units/ML 3 ML Vial IV ONE ×2 (20:40→23:30)
[2019-01-23] MEDS ORDERED: Sodium Bicarbonate 8.4% 50 MEQ/50 ML Syringe IVPUSH ONE (20:40)
[2019-01-23] MEDS ORDERED: Sodium Polystyrene Sulfonate 15 GM/60 ML Susp 60 ML Bot PO ONE (20:40)
[2019-01-23] MEDS ORDERED: Acetaminophen 325 MG Tab PO PRN (20:40)
[2019-01-23] MEDS: Ciprofloxacin in D5W 400 MG in Premix Bag 1 BAG IV SCH ×2 (21:08)
--- NOTE | 2019-01-24 00:15 | EDM.PDOC ---
ED HPI GENERAL MEDICAL PROBLEM - General Chief Complaint: General Stated Complaint: WEAK, SOB, TIRED Time Seen by Provider: 01/23/19 17:55 Source of Information: Reports: Patient History Limitations: Reports: No Limitations - History of Present Illness INITIAL COMMENTS - FREE TEXT/NARRATIVE: patient is a 58-year-old male with extensive past medical history who presents tonight with concern for worsening weakness, feeling very run down. He was seen in the ER earlier this week and diagnosed with urinary tract infection and started on Bactrim twice a day. 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 He denies any recent upper respiratory tract infection, cough, shortness of breath. He denies any abdominal pain, nausea or vomiting, diarrhea. He denies any paresthesias or alterations in sensation in his arms or legs and is able to walk. He reports that his urinary symptoms have improved since the last time he was here, but he is feeling extremely fatigued and run down and just not well. He does not have any abnormal skin lesions. general pain Pain Score (Numeric/FACES): 4 - Related Data Allergies Allergy/AdvReac Type Severity Reaction Status Date / Time No Known Allergies Allergy Verified 01/23/19 21:13 Home Meds: Home Meds Cholecalciferol (Vitamin D3) [Vitamin D3] 1,000 unit PO DAILY 06/07/15 [History] Calcitriol [Rocaltrol] 0.5 mcg PO DAILY 08/22/15 [History] Magnesium Oxide [Magnesium] 500 mg PO TID 07/23/17 [History] Sodium Bicarbonate 650 mg PO BID 07/23/17 [History] Aspirin 81 mg PO 1500 09/17/17 [History] predniSONE [Prednisone] 10 mg PO DAILY 09/17/17 [History] Acetaminophen [Tylenol] 650 mg PO Q4H PRN 02/24/18 [History] Tacrolimus [Prograf] 0.5 mg PO BID 02/24/18 [History] glipiZIDE [Glucotrol] 5 mg PO DAILY 02/24/18 [History] Citalopram [Citalopram HBr] 20 mg PO DAILY 08/07/18 [History] Fluconazole [Diflucan] 200 mg PO DAILY 08/07/18 [History] Gabapentin [Neurontin] 300 mg PO BID 08/07/18 [History] Insulin Degludec [Tresiba Flextouch U-100] 15 units SQ 1400 08/07/18 [History] Ticagrelor [Brilinta] 90 mg PO BID 08/07/18 [History] traMADol [Ultram] 50 mg PO Q6H PRN #10 tab 08/07/18 [Rx] Carvedilol 6.25 mg PO BID 10/16/18 [History] Acetaminophen/HYDROcodone [[place] 325-5 MG] 1 - 2 tab PO Q6H PRN #14 tab [Rx] Sulfamethoxazole/Trimethoprim [Septra DS] 1 each PO BID 10 Days #20 tab [Rx] Past Medical History HEENT History: Reports: Impaired Vision Other HEENT History: Pt wears glasses Cardiovascular History: Reports: CAD, High Cholesterol, [place], Stents, Other (See Below) Other Cardiovascular History: viral menigitis 2015 (also "had IL 09/2017 went to [facility] they put in a stent" this recorded on 09/14/17) Respiratory History: Reports: SOB Gastrointestinal History: Reports: Cholelithiasis, Colon Polyp, Diverticulosis, Hemorrhoids Genitourinary History: Reports: Renal Disease, UTI, Recurrent, Other (See Below) Other Genitourinary History: kidney transplant (2001) pts fistula was removed early may 2017 from left arm Musculoskeletal History: Reports: Back Pain, Chronic Other Musculoskeletal History: has lump on neck vein and will need it removed Neurological History: Reports: Other (See Below) Other Neuro History: Cryptococcal meningitis Psychiatric History: Reports: Addiction, Anxiety, Depression, Panic Attack, Other (See Below) Other Psychiatric History: gets mildly depressed. POST ALCOHOLIC 1998 Endocrine/Metabolic History: Reports: Diabetes, Type II, Hypoparathyroidism Hematologic History: Reports: Anemia, Blood Transfusion(s) Other Hematologic History: myelodysplastic syndrome Immunologic History: Reports: Solid Organ Transplant Other Immunologic History: kidney transplant 2001 Dermatologic History: Reports: None - Infectious Disease History Infectious Disease History: Reports: Chicken Pox, Measles - Past Surgical History Head Surgeries/Procedures: Reports: None Cardiovascular Surgical History: Reports: Carotid Stents GI Surgical History: Reports: Appendectomy, Cholecystectomy, Colonoscopy Male Surgical History: Reports: Other (See Below) Other Male Surgeries/Procedures: kidney transplant in 2001 Endocrine Surgical History: Reports: Other (See Below) Other Endocrine Surgeries/Procedures: had thyroid removed Musculoskeletal Surgical History: Reports: Hip Replacement Other Musculoskeletal Surgeries/Procedures:: both hips-replaced Dermatological Surgical History: Reports: None Social & Family History - Family History Family Medical History: Noncontributory Cardiac: Reports: CAD, Other (See Below) Other Cardiac Family History: Brother had bypass OBGYN: Reports: Endocrine/Metabolic: Reports: Diabetes, type II - Tobacco Use Smoking Status *Q: Current Some Day Smoker Years of Tobacco use: 20 Packs/Tins Daily: 1 Used Tobacco, but Quit: Yes Month/Year Tobacco Last Used: 1994 - Caffeine Use Caffeine Use: Reports: Coffee Other Caffeine Use: 2-3 cups per day Caffeine Use Comment: 2-3 cups/day - Alcohol Use Alcohol Use History: No - Recreational Drug Use Recreational Drug Use: No - Living Situation & Occupation Living situation: Reports: Alone Occupation: Disabled ED ROS GENERAL - Review of Systems Review Of Systems: ROS reveals no pertinent complaints other than HPI. ED EXAM, GENERAL - Physical Exam Exam: See Below Free Text/Narrative:: Gen.: Alert, no acute distress and nontoxic appearing. Head is atraumatic, pupils are equal and reactive, throat without erythema mucous members are moist. Neck is supple and there is no cervical adenopathy. Lungs are clear throughout with no wheezes or crackles and heart is regular rate and rhythm. Abdomen positive bowel sounds, soft nondistended nontender with no rebound or guarding. Peripheral pulses +2 in both the upper and lower extremities and there is no lower extremity edema. His skin exam is clear of any obvious significant lesions. His gait is normal, walks with a cane and his muscular strength is equal side to side. Course - Vital Signs Text/Narrative:: initial impressionpatient presenting with continued weakness and generalized muscle aches, high risk for severe infection as well as known to be transfusion dependent. He is quite nontoxic appearing today. He reports that his urine has improved on the Bactrim. Will get labs, repeat UA. No indication for chest x-ray Last Recorded V/S: Last Vital Signs Temp 36.4 C 01/23/19 19:35 Pulse 78 01/23/19 19:35 Resp 18 01/23/19 19:35 BP 128/75 01/23/19 19:35 Pulse Ox 99 01/23/19 19:35 - Orders/Labs/Meds Orders: Active Orders 24 hr Category Date Time Status BLOOD BANK HOLD SPECIMEN [BBK] Stat Lab 01/23/19 18:10 Results RED BLOOD CELLS LP [BBK] Stat Lab 01/23/19 18:10 Results TYPE AND SCREEN [BBK] Stat Lab 01/23/19 18:10 Results Sodium Chloride 0.9% [Normal Saline] 1,000 ml Med 01/23/19 19:35 Active IV ASDIRECTED Sodium Chloride 0.9% [Normal Saline] 250 ml Med 01/23/19 19:45 Active IV ASDIRECTED Transfuse Red Blood Cells [COMM] Per Unit Routine Oth 01/23/19 19:39 Ordered Medication Orders Acetaminophen (Tylenol) 650 mg PO Q4H PRN PRN Reason: Pain (Mild 1-3)/fever Sodium Chloride (Normal Saline) 1,000 mls @ 125 mls/hr IV ASDIRECTED LARON Last Admin: 01/23/19 19:35 Dose: 125 mls/hr Sodium Chloride (Normal Saline) 250 mls @ 100 mls/hr IV ASDIRECTED LARON Ciprofloxacin/Dextrose 400 mg/ (Premix) 200 mls @ 200 mls/hr IV Q12H [facility] Last Admin: 01/23/19 21:08 Dose: 200 mls/hr Sodium Chloride (Normal Saline) 1,000 mls @ 500 mls/hr IV ASDIRECTED LARON Last Admin: 01/23/19 21:04 Dose: 500 mls/hr Labs: Laboratory Tests 01/23/19 01/23/19 01/23/19 Range/Units 18:10 18:10 18:10 WBC 5.4 (4.5-12.0) X10-3/uL RBC 2.07 L (4.30-5.75) x10(6)uL Hgb 7.2 L (13.5-17.8) g/dL Hct 19.7 L* (30.0-51.3) % MCV 95.0 (80-96) fL MCH 34.9 H (27.7-33.6) pg MCHC 36.7 H (32.2-35.4) g/dL RDW 13.5 (11.5-15.5) % Plt Count 40 L (125-369) X10(3)uL MPV 9.9 (7.4-10.4) fL Add Manual Diff Yes Neutrophils % (Manual) 77 (46-82) % Band Neutrophils % 6 (0-6) % Lymphocytes % (Manual) 10 L (13-37) % Monocytes % (Manual) 7 (4-12) % Polychromasia Few PT (8.7-11.1) INR (0.89-1.13) Sodium 134 L (135-145) mmol/L Potassium 5.8 H D (3.5-5.3) mmol/L Chloride 100 (100-110) mmol/L Carbon Dioxide 27 (21-32) mmol/L BUN 45 H (7-18) mg/dL Creatinine 2.2 H* (0.70-1.30) mg/dL Est Cr Clr Drug Dosing TNP Estimated GFR (MDRD) 31 L (>60) BUN/Creatinine Ratio 20.5 H (9-20) Glucose 271 H (80-116) mg/dL Calcium 8.0 L (8.6-10.2) mg/dL C-Reactive Protein (0.5-0.9) mg/dL Blood Type O POSITIVE Gel Antibody Screen Negative Crossmatch See Detail 01/23/19 01/23/19 Range/Units 18:10 18:10 WBC (4.5-12.0) X10-3/uL RBC (4.30-5.75) x10(6)uL Hgb (13.5-17.8) g/dL Hct (30.0-51.3) % MCV (80-96) fL MCH (27.7-33.6) pg MCHC (32.2-35.4) g/dL RDW (11.5-15.5) % Plt Count (125-369) X10(3)uL MPV (7.4-10.4) fL Add Manual Diff Neutrophils % (Manual) (46-82) % Band Neutrophils % (0-6) % Lymphocytes % (Manual) (13-37) % Monocytes % (Manual) (4-12) % Polychromasia PT 10.0 (8.7-11.1) INR 1.03 (0.89-1.13) Sodium (135-145) mmol/L Potassium (3.5-5.3) mmol/L Chloride (100-110) mmol/L Carbon Dioxide (21-32) mmol/L BUN (7-18) mg/dL Creatinine (0.70-1.30) mg/dL Est Cr Clr Drug Dosing Estimated GFR (MDRD) (>60) BUN/Creatinine Ratio (9-20) Glucose (80-116) mg/dL Calcium (8.6-10.2) mg/dL C-Reactive Protein 3.6 H* (0.5-0.9) mg/dL Blood Type Gel Antibody Screen Crossmatch Meds: Medications Generic Name Dose Route Start Last Admin Trade Name Oskar PRN Reason Stop Dose Admin Acetaminophen 650 mg 01/23/19 20:40 Tylenol PO Q4H PRN Pain (Mild 1-3)/fever Sodium Chloride 1,000 mls @ 125 mls/hr 01/23/19 19:35 01/23/19 19:35 Normal Saline IV 125 mls/hr ASDIRECTED LARON Administration Sodium Chloride 250 mls @ 100 mls/hr 01/23/19 19:45 Normal Saline IV ASDIRECTED LARON Ciprofloxacin/Dextrose 400 mg/ 200 mls @ 200 mls/hr 01/23/19 21:00 01/23/19 21:08 Premix IV 200 mls/hr Q12H LARON Administration Sodium Chloride 1,000 mls @ 500 mls/hr 01/23/19 20:40 01/23/19 21:04 Normal Saline IV 500 mls/hr ASDIRECTED LARON Administration Discontinued Medications Generic Name Dose Route Start Last Admin Trade Name Oskar PRN Reason Stop Dose Admin Insulin Human Regular 5 unit 01/23/19 20:40 01/23/19 20:53 Humulin R IV 01/23/19 20:41 5 units ONETIME ONE Administration Insulin Human Regular 5 unit 01/23/19 23:30 01/23/19 23:55 Humulin R IV 01/23/19 23:31 5 units ONETIME ONE Administration Sodium Bicarbonate 50 meq 01/23/19 20:40 01/23/19 22:46 Sodium Bicarbonate 8.4% IVPUSH 01/23/19 20:41 50 meq ONETIME ONE Administration Sodium Polystyrene Sulfonate 45 gm 01/23/19 20:40 01/23/19 20:52 Kayexalate PO 01/23/19 20:41 45 gm NOW ONE Administration - Re-Assessments/Exams Free Text/Narrative Re-Assessment/Exam: labs returned with slightly worsened anemia, elevated kidney function at 2.2, potassium 5.8. His CRP is slightly improved from 3 days ago at 2.6. Glucose 271 Suspect possible new-onset [place] I either from Bactrim or from mild dehydration combined with anemia. IV insulin and Kayexalate ordered for hyperkalemia. No EKG changes at this time. Given that his CRP is improving, I suspect the Bactrim actually did help with the infection but would switch him to something else at this time. Per cultures from previous admission Cipro should be adequate.given his new HENOK, I think he would also benefit from transfusion at this point. He is otherwise stable, and does not have any indications for dialysis. Will admit here overnight but explained to patient that he will need transfer if not improving in the a.m. He very much does not want to go to [place] and is in agreement with this plan. Admission plan: Admit obs, patient with his own medications with him. Stop Bactrim, start Cipro 400 mg IV twice a day 500 mL normal saline bolus ordered, and 1 unit of PRBCs. Due to mild transfusion reaction on last admission, needs premedicated with Benadryl just prior to transfusion. Additional fluid with meds only. bicarbonate,IV insulin and Kayexalate ordered for hyperkalemia. Recheck at midnight glucose checks overnight (IV insulin) patient may eat On telemetry overnight CBC and BMP ordered for a.m. Patient remains full code. Departure - Departure Time of Disposition: 20:00 Disposition: Refer to Observation Condition: Fair Clinical Impression: Status post kidney transplant, MDS (myelodysplastic syndrome) with 5q deletion , Immunosuppressed status, Acute on chronic renal failure, Elevated C-reactive protein (CRP), UTI (urinary tract infection), Anemia, macrocytic CKD (chronic kidney disease) Qualifiers: Chronic kidney disease stage: stage 2 (mild) Qualified Code(s): N18.2 - Chronic kidney disease, stage 2 (mild) Hyperglycemia due to type 2 diabetes mellitus Qualifiers: Diabetes mellitus cashier insulin use: without cashier use Qualified Code(s ): E11.65 - Type 2 diabetes mellitus with hyperglycemia - Discharge Information *PRESCRIPTION DRUG MONITORING PROGRAM REVIEWED*: Not Applicable *COPY OF PRESCRIPTION DRUG MONITORING REPORT IN PATIENT JUNI: Not Applicable - My Orders Last 24 Hours: My Active Orders 01/23/19 18:10 BLOOD BANK HOLD SPECIMEN [BBK] Stat RED BLOOD CELLS LP [BBK] Stat TYPE AND SCREEN [BBK] Stat 01/23/19 19:35 Sodium Chloride 0.9% [Normal Saline] 1,000 ml IV ASDIRECTED 01/23/19 19:39 Transfuse Red Blood Cells [COMM] Per Unit Routine 01/23/19 19:45 Sodium Chloride 0.9% [Normal Saline] 250 ml IV ASDIRECTED - Assessment/Plan Last 24 Hours: My Active Orders 01/23/19 18:10 BLOOD BANK HOLD SPECIMEN [BBK] Stat RED BLOOD CELLS LP [BBK] Stat TYPE AND SCREEN [BBK] Stat 01/23/19 19:35 Sodium Chloride 0.9% [Normal Saline] 1,000 ml IV ASDIRECTED 01/23/19 19:39 Transfuse Red Blood Cells [COMM] Per Unit Routine 01/23/19 19:45 Sodium Chloride 0.9% [Normal Saline] 250 ml IV ASDIRECTED
[2019-01-24] MEDS ORDERED: diphenhydrAMINE 50 MG/ML SDV IVPUSH ONE ×2 (00:26→07:26)
[2019-01-24] MEDS: Sodium Chloride 0.9% 250 ML IV SCH ×2 (00:43→11:41)
[2019-01-24] MEDS ORDERED: Sodium Chloride 0.9% 250 ML IV SCH (07:30)
[2019-01-24] MEDS ORDERED: Ciprofloxacin in D5W 200 ML ONE (09:00)
[2019-01-24] MEDS: Ciprofloxacin in D5W 400 MG in Premix Bag 1 BAG IV SCH ×2 (09:43)
[2019-01-24] MEDS ORDERED: Insulin Lispro 100 Unit/ML 3 ML KwikPen SUBCUT ONE (13:48)
[2019-01-24 13:59] VITALS: BP 134/77; PULSE 63
--- NOTE | 2019-01-24 14:29 | PCM.HP.2 ---
H&P History of Present Illness - General Date of Service: 01/24/19 Admit Problem/Dx: Anemia secondary myelodysplastic syndrome, s/p renal transplant, UTI, Diabetes Source of Information: Patient, EMS, EMS Notes Reviewed History Limitations: Reports: No Limitations - History of Present Illness Initial Comments - Free Text/Narative: patient is a 58-year-old male with extensive past medical history who presents last night with concern for worsening weakness, feeling very run down. He was seen in the ER earlier this week and diagnosed with urinary tract infection and started on Bactrim twice a day. 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 He denies sinus symptoms, cough, shortness of breath. No abdominal pain, nausea or vomiting, diarrhea. He states that he feels better if his hemoglobin is kept above 7 but states his regular doctor said need to transfuse when below 7. He was sent to [place] in November in critical condition due to his anemia, acute on chronic kidney failure, respiratory failure. general pain Pain Score (Numeric/FACES): 3 - Related Data Allergies/Adverse Reactions: Allergies Allergy/AdvReac Type Severity Reaction Status Date / Time No Known Allergies Allergy Verified 01/23/19 21:13 Home Medications: Home Meds Cholecalciferol (Vitamin D3) [Vitamin D3] 1,000 unit PO DAILY 06/07/15 [History] Calcitriol [Rocaltrol] 0.5 mcg PO DAILY 08/22/15 [History] Magnesium Oxide [Magnesium] 500 mg PO TID 07/23/17 [History] Sodium Bicarbonate 650 mg PO BID 07/23/17 [History] Aspirin 81 mg PO 1500 09/17/17 [History] predniSONE [Prednisone] 10 mg PO DAILY 09/17/17 [History] Acetaminophen [Tylenol] 650 mg PO Q4H PRN 02/24/18 [History] Tacrolimus [Prograf] 0.5 mg PO BID 02/24/18 [History] glipiZIDE [Glucotrol] 5 mg PO DAILY 02/24/18 [History] Citalopram [Citalopram HBr] 20 mg PO DAILY 08/07/18 [History] Fluconazole [Diflucan] 200 mg PO DAILY 08/07/18 [History] Gabapentin [Neurontin] 300 mg PO BID 08/07/18 [History] Insulin Degludec [Tresiba Flextouch U-100] 15 units SQ 1400 08/07/18 [History] Ticagrelor [Brilinta] 90 mg PO BID 08/07/18 [History] traMADol [Ultram] 50 mg PO Q6H PRN #10 tab 08/07/18 [Rx] Carvedilol 6.25 mg PO BID 10/16/18 [History] Acetaminophen/HYDROcodone [[place] 325-5 MG] 1 - 2 tab PO Q6H PRN #14 tab [Rx] Sulfamethoxazole/Trimethoprim [Septra DS] 1 each PO BID 10 Days #20 tab [Rx] Past Medical History HEENT History: Reports: Impaired Vision Other HEENT History: Pt wears glasses Cardiovascular History: Reports: CAD, High Cholesterol, DE, Stents, Other (See Below) Other Cardiovascular History: viral menigitis 2015 (also "had DE 09/2017 went to [place] they put in a stent" this recorded on 09/14/17) Respiratory History: Reports: SOB Gastrointestinal History: Reports: Cholelithiasis, Colon Polyp, Diverticulosis, Hemorrhoids Genitourinary History: Reports: Renal Disease, UTI, Recurrent, Other (See Below) Other Genitourinary History: kidney transplant (2001) pts fistula was removed early may 2017 from left arm Musculoskeletal History: Reports: Back Pain, Chronic Other Musculoskeletal History: has lump on neck vein and will need it removed Neurological History: Reports: Other (See Below) Other Neuro History: Cryptococcal meningitis Psychiatric History: Reports: Addiction, Anxiety, Depression, Panic Attack, Other (See Below) Other Psychiatric History: gets mildly depressed. POST ALCOHOLIC 1998 Endocrine/Metabolic History: Reports: Diabetes, Type II, Hypoparathyroidism Hematologic History: Reports: Anemia, Blood Transfusion(s) Other Hematologic History: myelodysplastic syndrome Immunologic History: Reports: Solid Organ Transplant Other Immunologic History: kidney transplant 2001 Dermatologic History: Reports: None - Infectious Disease History Infectious Disease History: Reports: Chicken Pox, Measles - Past Surgical History Head Surgeries/Procedures: Reports: None Cardiovascular Surgical History: Reports: Carotid Stents GI Surgical History: Reports: Appendectomy, Cholecystectomy, Colonoscopy Male Surgical History: Reports: Other (See Below) Other Male Surgeries/Procedures: kidney transplant in 2001 Endocrine Surgical History: Reports: Other (See Below) Other Endocrine Surgeries/Procedures: had thyroid removed Musculoskeletal Surgical History: Reports: Hip Replacement Other Musculoskeletal Surgeries/Procedures:: both hips-replaced Dermatological Surgical History: Reports: None Social & Family History - Family History Family Medical History: Noncontributory Cardiac: Reports: CAD, Other (See Below) Other Cardiac Family History: Brother had bypass OBGYN: Reports: Endocrine/Metabolic: Reports: Diabetes, type II - Tobacco Use Smoking Status *Q: Current Some Day Smoker Years of Tobacco use: 20 Packs/Tins Daily: 1 Used Tobacco, but Quit: Yes Month/Year Tobacco Last Used: 1994 - Caffeine Use Caffeine Use: Reports: Coffee Other Caffeine Use: 2-3 cups per day Caffeine Use Comment: 2-3 cups/day - Recreational Drug Use Recreational Drug Use: No - Living Situation & Occupation Living situation: Reports: Alone Occupation: Disabled H&P Review of Systems - Review of Systems: Review Of Systems: See Below General: Reports: Weakness. Denies: Fever, Chills HEENT: Reports: No Symptoms Pulmonary: Reports: No Symptoms Cardiovascular: Reports: No Symptoms Gastrointestinal: Reports: No Symptoms Genitourinary: Reports: No Symptoms Skin: Reports: No Symptoms Neurological: Reports: Gait Disturbance (walks with cane). Denies: Dizziness, Numbness, Paresthesia, Tingling Exam - Exam Exam: See Below - Vital Signs Vital Signs: Last Vital Signs Temp 36.8 C 01/24/19 13:55 Pulse 63 01/24/19 13:55 Resp 16 01/24/19 13:55 BP 134/77 01/24/19 13:55 Pulse Ox 96 01/24/19 13:55 Weight: 71.35 kg - Exam General: Alert, Oriented, Cooperative Lungs: Clear to Auscultation, Normal Respiratory Effort Cardiovascular: Regular Rate, Regular Rhythm GI/Abdominal Exam: Normal Bowel Sounds, Soft, Non-Tender, No Distention Extremities: No Pedal Edema Psychiatric: Alert, Normal Affect, Normal Mood - Patient Data Lab Results Last 24 hrs: Laboratory Results - last 24 hr 01/23/19 01/23/19 01/23/19 Range/Units 18:10 18:10 18:10 WBC 5.4 (4.5-12.0) X10-3/uL RBC 2.07 L (4.30-5.75) x10(6)uL Hgb 7.2 L (13.5-17.8) g/dL Hct 19.7 L* (30.0-51.3) % MCV 95.0 (80-96) fL MCH 34.9 H (27.7-33.6) pg MCHC 36.7 H (32.2-35.4) g/dL RDW 13.5 (11.5-15.5) % Plt Count 40 L (125-369) X10(3)uL MPV 9.9 (7.4-10.4) fL Add Manual Diff Yes Neutrophils % (Manual) 77 (46-82) % Band Neutrophils % 6 (0-6) % Lymphocytes % (Manual) 10 L (13-37) % Monocytes % (Manual) 7 (4-12) % Polychromasia Few PT (8.7-11.1) INR (0.89-1.13) Sodium 134 L (135-145) mmol/L Potassium 5.8 H D (3.5-5.3) mmol/L Chloride 100 (100-110) mmol/L Carbon Dioxide 27 (21-32) mmol/L BUN 45 H (7-18) mg/dL Creatinine 2.2 H* (0.70-1.30) mg/dL Est Cr Clr Drug Dosing TNP Estimated GFR (MDRD) 31 L (>60) BUN/Creatinine Ratio 20.5 H (9-20) Glucose 271 H (80-116) mg/dL POC Glucose (80-116) mg/dL Calcium 8.0 L (8.6-10.2) mg/dL Phosphorus (2.6-4.6) mg/dL Magnesium (1.8-2.5) mg/dL C-Reactive Protein (0.5-0.9) mg/dL Urine Color (YELLOW) Urine Appearance (CLEAR) Urine pH (5.0-6.5) Ur Specific [place] (1.010-1.025) Urine Protein (NEGATIVE) mg/dL Urine Glucose (UA) (NORMAL) mg/dL Urine Ketones (NEGATIVE) mg/dL Urine Occult Blood (NEGATIVE) Urine Nitrite (NEGATIVE) Urine Bilirubin (NEGATIVE) Urine Urobilinogen (NEGATIVE) mg/dL Ur Leukocyte Esterase (NEGATIVE) Urine RBC (0-5) Urine WBC (0-5) Ur Squamous Epith Cells (NS,R,O) Urine Bacteria (NS) Blood Type O POSITIVE Gel Antibody Screen Negative Crossmatch See Detail 01/23/19 01/23/19 01/23/19 Range/Units 18:10 18:10 20:06 WBC (4.5-12.0) X10-3/uL RBC (4.30-5.75) x10(6)uL Hgb (13.5-17.8) g/dL Hct (30.0-51.3) % MCV (80-96) fL MCH (27.7-33.6) pg MCHC (32.2-35.4) g/dL RDW (11.5-15.5) % Plt Count (125-369) X10(3)uL MPV (7.4-10.4) fL Add Manual Diff Neutrophils % (Manual) (46-82) % Band Neutrophils % (0-6) % Lymphocytes % (Manual) (13-37) % Monocytes % (Manual) (4-12) % Polychromasia PT 10.0 (8.7-11.1) INR 1.03 (0.89-1.13) Sodium (135-145) mmol/L Potassium (3.5-5.3) mmol/L Chloride (100-110) mmol/L Carbon Dioxide (21-32) mmol/L BUN (7-18) mg/dL Creatinine (0.70-1.30) mg/dL Est Cr Clr Drug Dosing Estimated GFR (MDRD) (>60) BUN/Creatinine Ratio (9-20) Glucose (80-116) mg/dL POC Glucose (80-116) mg/dL Calcium (8.6-10.2) mg/dL Phosphorus (2.6-4.6) mg/dL Magnesium (1.8-2.5) mg/dL C-Reactive Protein 3.6 H* (0.5-0.9) mg/dL Urine Color Yellow (YELLOW) Urine Appearance Clear (CLEAR) Urine pH 6.0 (5.0-6.5) Ur Specific [place] 1.010 (1.010-1.025) Urine Protein Negative (NEGATIVE) mg/dL Urine Glucose (UA) 100 H (NORMAL) mg/dL Urine Ketones Negative (NEGATIVE) mg/dL Urine Occult Blood Moderate H (NEGATIVE) Urine Nitrite Negative (NEGATIVE) Urine Bilirubin Small H (NEGATIVE) Urine Urobilinogen Normal (NEGATIVE) mg/dL Ur Leukocyte Esterase Small H (NEGATIVE) Urine RBC 0-5 (0-5) Urine WBC 0-5 (0-5) Ur Squamous Epith Cells Few H (NS,R,O) Urine Bacteria Few H (NS) Blood Type Gel Antibody Screen Crossmatch 01/23/19 01/24/19 01/24/19 Range/Units 22:17 00:03 01:11 WBC (4.5-12.0) X10-3/uL RBC (4.30-5.75) x10(6)uL Hgb (13.5-17.8) g/dL Hct (30.0-51.3) % MCV (80-96) fL MCH (27.7-33.6) pg MCHC (32.2-35.4) g/dL RDW (11.5-15.5) % Plt Count (125-369) X10(3)uL MPV (7.4-10.4) fL Add Manual Diff Neutrophils % (Manual) (46-82) % Band Neutrophils % (0-6) % Lymphocytes % (Manual) (13-37) % Monocytes % (Manual) (4-12) % Polychromasia PT (8.7-11.1) INR (0.89-1.13) Sodium 140 (135-145) mmol/L Potassium 4.6 D (3.5-5.3) mmol/L Chloride 105 D (100-110) mmol/L Carbon Dioxide 28 (21-32) mmol/L BUN 44 H (7-18) mg/dL Creatinine 2.1 H* (0.70-1.30) mg/dL Est Cr Clr Drug Dosing 34.18 Estimated GFR (MDRD) 32 L (>60) BUN/Creatinine Ratio 21.0 H (9-20) Glucose 225 H (80-116) mg/dL POC Glucose 319 H D 194 H D (80-116) mg/dL Calcium 7.7 L (8.6-10.2) mg/dL Phosphorus (2.6-4.6) mg/dL Magnesium (1.8-2.5) mg/dL C-Reactive Protein (0.5-0.9) mg/dL Urine Color (YELLOW) Urine Appearance (CLEAR) Urine pH (5.0-6.5) Ur Specific [place] (1.010-1.025) Urine Protein (NEGATIVE) mg/dL Urine Glucose (UA) (NORMAL) mg/dL Urine Ketones (NEGATIVE) mg/dL Urine Occult Blood (NEGATIVE) Urine Nitrite (NEGATIVE) Urine Bilirubin (NEGATIVE) Urine Urobilinogen (NEGATIVE) mg/dL Ur Leukocyte Esterase (NEGATIVE) Urine RBC (0-5) Urine WBC (0-5) Ur Squamous Epith Cells (NS,R,O) Urine Bacteria (NS) Blood Type Gel Antibody Screen Crossmatch 01/24/19 01/24/19 01/24/19 Range/Units 03:57 05:02 06:20 WBC 4.3 L (4.5-12.0) X10-3/uL RBC 2.33 L (4.30-5.75) x10(6)uL Hgb 7.5 L (13.5-17.8) g/dL Hct 21.2 L* (30.0-51.3) % MCV 91.1 (80-96) fL MCH 32.2 (27.7-33.6) pg MCHC 35.4 (32.2-35.4) g/dL RDW 13.7 (11.5-15.5) % Plt Count 40 L (125-369) X10(3)uL MPV (7.4-10.4) fL Add Manual Diff Neutrophils % (Manual) (46-82) % Band Neutrophils % (0-6) % Lymphocytes % (Manual) (13-37) % Monocytes % (Manual) (4-12) % Polychromasia PT (8.7-11.1) INR (0.89-1.13) Sodium (135-145) mmol/L Potassium (3.5-5.3) mmol/L Chloride (100-110) mmol/L Carbon Dioxide (21-32) mmol/L BUN (7-18) mg/dL Creatinine (0.70-1.30) mg/dL Est Cr Clr Drug Dosing Estimated GFR (MDRD) (>60) BUN/Creatinine Ratio (9-20) Glucose (80-116) mg/dL POC Glucose 64 L D 70 L (80-116) mg/dL Calcium (8.6-10.2) mg/dL Phosphorus (2.6-4.6) mg/dL Magnesium (1.8-2.5) mg/dL C-Reactive Protein (0.5-0.9) mg/dL Urine Color (YELLOW) Urine Appearance (CLEAR) Urine pH (5.0-6.5) Ur Specific [place] (1.010-1.025) Urine Protein (NEGATIVE) mg/dL Urine Glucose (UA) (NORMAL) mg/dL Urine Ketones (NEGATIVE) mg/dL Urine Occult Blood (NEGATIVE) Urine Nitrite (NEGATIVE) Urine Bilirubin (NEGATIVE) Urine Urobilinogen (NEGATIVE) mg/dL Ur Leukocyte Esterase (NEGATIVE) Urine RBC (0-5) Urine WBC (0-5) Ur Squamous Epith Cells (NS,R,O) Urine Bacteria (NS) Blood Type Gel Antibody Screen Crossmatch 01/24/19 01/24/19 01/24/19 Range/Units 06:20 10:28 13:43 WBC (4.5-12.0) X10-3/uL RBC (4.30-5.75) x10(6)uL Hgb (13.5-17.8) g/dL Hct (30.0-51.3) % MCV (80-96) fL MCH (27.7-33.6) pg MCHC (32.2-35.4) g/dL RDW (11.5-15.5) % Plt Count (125-369) X10(3)uL MPV (7.4-10.4) fL Add Manual Diff Neutrophils % (Manual) (46-82) % Band Neutrophils % (0-6) % Lymphocytes % (Manual) (13-37) % Monocytes % (Manual) (4-12) % Polychromasia PT (8.7-11.1) INR (0.89-1.13) Sodium 142 (135-145) mmol/L Potassium 4.6 (3.5-5.3) mmol/L Chloride 107 (100-110) mmol/L Carbon Dioxide 26 (21-32) mmol/L BUN 40 H (7-18) mg/dL Creatinine 2.0 H* (0.70-1.30) mg/dL Est Cr Clr Drug Dosing 35.89 Estimated GFR (MDRD) 34 L (>60) BUN/Creatinine Ratio 20.0 (9-20) Glucose 148 H (80-116) mg/dL POC Glucose 165 H D 307 H D (80-116) mg/dL Calcium 7.5 L (8.6-10.2) mg/dL Phosphorus 4.8 H (2.6-4.6) mg/dL Magnesium 1.5 L (1.8-2.5) mg/dL C-Reactive Protein (0.5-0.9) mg/dL Urine Color (YELLOW) Urine Appearance (CLEAR) Urine pH (5.0-6.5) Ur Specific [place] (1.010-1.025) Urine Protein (NEGATIVE) mg/dL Urine Glucose (UA) (NORMAL) mg/dL Urine Ketones (NEGATIVE) mg/dL Urine Occult Blood (NEGATIVE) Urine Nitrite (NEGATIVE) Urine Bilirubin (NEGATIVE) Urine Urobilinogen (NEGATIVE) mg/dL Ur Leukocyte Esterase (NEGATIVE) Urine RBC (0-5) Urine WBC (0-5) Ur Squamous Epith Cells (NS,R,O) Urine Bacteria (NS) Blood Type Gel Antibody Screen Crossmatch Result Diagrams: 01/24/19 06:20 01/24/19 06:20 *Q Meaningful Use (ADM) - VTE *Q VTE Anticoagulation Contraindications: Med/TX Not Indicated/Need - Problem List (1) Anemia, macrocytic SNOMED Code(s): 14470743 ICD Code: D53.9 - NUTRITIONAL ANEMIA, UNSPECIFIED Status: Acute Current Visit: Yes (2) Hyperglycemia due to type 2 diabetes mellitus SNOMED Code(s): 921571893483068, 041467420714079 ICD Code: E11.65 - TYPE 2 DIABETES MELLITUS WITH HYPERGLYCEMIA Status: Acute Current Visit: Yes Qualifiers: Diabetes mellitus mcfp insulin use: without rodent exterminator use Qualified Code(s): E11.65 - Type 2 diabetes mellitus with hyperglycemia (3) MDS (myelodysplastic syndrome) with 5q deletion SNOMED Code(s): 670463395 ICD Code: D46.C - MYELODYSPLASTIC SYNDROME W ISOLATED DEL(5Q) CHROMSOML ABNLT Status: Acute Current Visit: Yes (4) UTI (urinary tract infection) SNOMED Code(s): 15162857 ICD Code: N39.0 - URINARY TRACT INFECTION, SITE NOT SPECIFIED Status: Acute Current Visit: Yes (5) CKD (chronic kidney disease) SNOMED Code(s): 554201244 ICD Code: N18.9 - CHRONIC KIDNEY DISEASE, UNSPECIFIED Status: Chronic Current Visit: Yes Qualifiers: Chronic kidney disease stage: stage 2 (mild) Qualified Code(s): N18.2 - Chronic kidney disease, stage 2 (mild) Problem List Initiated/Reviewed/Updated: Yes Orders Last 24hrs: Active Orders 24 hr Category Date Time Status Patient Status [ADT] Routine ADT 01/23/19 20:40 Active Cardiac Monitoring [RC] CONTINUOUS Care 01/23/19 20:40 Active Glucose [Blood Glucose Check, Bedside] [RC] Q2HR Care 01/23/19 19:59 Active Oxygen Therapy [RC] PRN Care 01/23/19 20:40 Active Ready for Discharge [RC] PER UNIT ROUTINE Care 01/24/19 13:54 Active Up ad Patsy [RC] ASDIRECTED Care 01/23/19 20:40 Active VTE/DVT Education [RC] Per Unit Routine Care 01/23/19 20:40 Active Vital Signs [RC] 00,04,08,12,16,20 Care 01/23/19 20:40 Active Consistent Carbohydrate Diet [DIET] Diet 01/24/19 Breakfast Active Acetaminophen [Tylenol] Med 01/23/19 20:40 Active 650 mg PO Q4H PRN Ciprofloxacin in D5W [Cipro in D5W 400 MG/200 ML] 400 Med 01/23/19 21:00 Active mg Premix Bag 1 bag IV Q12H Sodium Chloride 0.9% [Normal Saline] 1,000 ml Med 01/23/19 19:35 Active IV ASDIRECTED Sodium Chloride 0.9% [Normal Saline] 1,000 ml Med 01/23/19 20:40 Active IV ASDIRECTED Sodium Chloride 0.9% [Normal Saline] 250 ml Med 01/23/19 19:45 Active IV ASDIRECTED Sodium Chloride 0.9% [Normal Saline] 250 ml Med 01/24/19 07:30 Active IV ASDIRECTED Anticoagulation Contraindications VTE [AST] Per Unit Oth 01/23/19 20:40 Ordered Routine Transfuse PRBC [Transfuse Red Blood Cells] [COMM] Oth 01/24/19 07:27 Ordered Routine Resuscitation Status Routine Resus Stat 01/23/19 19:53 Ordered Medication Orders Acetaminophen (Tylenol) 650 mg PO Q4H PRN PRN Reason: Pain (Mild 1-3)/fever Sodium Chloride (Normal Saline) 1,000 mls @ 125 mls/hr IV ASDIRECTED [facility] Last Admin: 01/23/19 19:35 Dose: 125 mls/hr Sodium Chloride (Normal Saline) 250 mls @ 100 mls/hr IV ASDIRECTED [facility] Last Admin: 01/24/19 11:41 Dose: 100 mls/hr Admin: 01/24/19 00:43 Dose: 100 mls/hr Ciprofloxacin/Dextrose 400 mg/ (Premix) 200 mls @ 200 mls/hr IV Q12H [facility] Last Admin: 01/24/19 09:43 Dose: Not Given Admin: 01/23/19 21:08 Dose: 200 mls/hr Sodium Chloride (Normal Saline) 1,000 mls @ 500 mls/hr IV ASDIRECTED [facility] Last Admin: 01/23/19 21:04 Dose: 500 mls/hr Sodium Chloride (Normal Saline) 250 mls @ 100 mls/hr IV ASDIRECTED [facility] Assessment/Plan Comment:: 1. Admitted to observation overnight for blood transfusion and repeat Chemistry. 2. Received 1 unit of PRBCs in ER. Hgb came up to 7.5. Will give second unit. 3. Chronic kidney disease: Cr improved to 2.0. Potassium corrected back to normal, 4.6. 4. Continue home medications. 5. Consistent carb diet, Humalog as needed. 6. Possible discharge later today. 7. FULL CODE. - Mortality Measure Prognosis:: Good
--- NOTE | 2019-01-24 16:05 | PCM.DCSUM1 ---
Discharge Summary - Hospital Course HPI Initial Comments: patient is a 58-year-old male with extensive past medical history who presents last night with concern for worsening weakness, feeling very run down. He was seen in the ER earlier this week and diagnosed with urinary tract infection and started on Bactrim twice a day. 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 He denies sinus symptoms, cough, shortness of breath. No abdominal pain, nausea or vomiting, diarrhea. He states that he feels better if his hemoglobin is kept above 7 but states his regular doctor said need to transfuse when below 7. He was sent to [place] in November in critical condition due to his anemia, acute on chronic kidney failure, respiratory failure. Diagnosis: Stroke: No - Discharge Data Discharge Date: 01/24/19 Discharge Disposition: Home, Self-Care 01 Condition: Stable - Referral to Home Health Primary Care Physician: Du Andersen MD - Discharge Diagnosis/Problem(s) (1) Anemia, macrocytic SNOMED Code(s): 46393379 ICD Code: D53.9 - NUTRITIONAL ANEMIA, UNSPECIFIED Status: Acute (2) Hyperglycemia due to type 2 diabetes mellitus SNOMED Code(s): 814819105205391, 298554855653163 ICD Code: E11.65 - TYPE 2 DIABETES MELLITUS WITH HYPERGLYCEMIA Status: Acute Qualifiers: Diabetes mellitus remote computer terminal operator insulin use: without fpc use Qualified Code(s): E11.65 - Type 2 diabetes mellitus with hyperglycemia (3) MDS (myelodysplastic syndrome) with 5q deletion SNOMED Code(s): 389363696 ICD Code: D46.C - MYELODYSPLASTIC SYNDROME W ISOLATED DEL(5Q) CHROMSOML ABNLT Status: Acute (4) UTI (urinary tract infection) SNOMED Code(s): 30796178 ICD Code: N39.0 - URINARY TRACT INFECTION, SITE NOT SPECIFIED Status: Acute (5) CKD (chronic kidney disease) SNOMED Code(s): 065601522 ICD Code: N18.9 - CHRONIC KIDNEY DISEASE, UNSPECIFIED Status: Chronic Qualifiers: Chronic kidney disease stage: stage 2 (mild) Qualified Code(s): N18.2 - Chronic kidney disease, stage 2 (mild) - Patient Summary/Data Hospital Course: Patient's potassium corrected from interventions done in ER. Received 1 unit of PRBCs in ER. Hemoglobin this morning was 7.5. Transfused 1 unit of PRBCs, premedicated with Diphenhydramine 50 mg IV as history of reaction when he was admitted in [place]. Patient had no shortness of breath, weakness improved. Patient wanted to be discharged as he reported that ER doctor told him it would just be overnight. He was going to go home whether we discharged him or not. - Patient Instructions Diet: Diabetic Diet Notify Provider of: Fever, Increased Pain Other/Special Instructions: Follow up with Dr Andersen in 1 week. - Discharge Plan *PRESCRIPTION DRUG MONITORING PROGRAM REVIEWED*: Not Applicable *COPY OF PRESCRIPTION DRUG MONITORING REPORT IN PATIENT JUNI: Not Applicable Home Medications: Home Meds Cholecalciferol (Vitamin D3) [Vitamin D3] 1,000 unit PO DAILY 06/07/15 [History] Calcitriol [Rocaltrol] 0.5 mcg PO DAILY 08/22/15 [History] Magnesium Oxide [Magnesium] 500 mg PO TID 07/23/17 [History] Sodium Bicarbonate 650 mg PO BID 07/23/17 [History] Aspirin 81 mg PO 1500 09/17/17 [History] predniSONE [Prednisone] 10 mg PO DAILY 09/17/17 [History] Acetaminophen [Tylenol] 650 mg PO Q4H PRN 02/24/18 [History] Tacrolimus [Prograf] 0.5 mg PO BID 02/24/18 [History] glipiZIDE [Glucotrol] 5 mg PO DAILY 02/24/18 [History] Citalopram [Citalopram HBr] 20 mg PO DAILY 08/07/18 [History] Fluconazole [Diflucan] 200 mg PO DAILY 08/07/18 [History] Gabapentin [Neurontin] 300 mg PO BID 08/07/18 [History] Insulin Degludec [Tresiba Flextouch U-100] 15 units SQ 1400 08/07/18 [History] Ticagrelor [Brilinta] 90 mg PO BID 08/07/18 [History] traMADol [Ultram] 50 mg PO Q6H PRN #10 tab 08/07/18 [Rx] Carvedilol 6.25 mg PO BID 10/16/18 [History] Acetaminophen/HYDROcodone [[place] 325-5 MG] 1 - 2 tab PO Q6H PRN #14 tab [Rx] Sulfamethoxazole/Trimethoprim [Septra DS] 1 each PO BID 10 Days #20 tab [Rx] Patient Handouts: Blood Transfusion, Adult, [id number], Fall Prevention in Hospitals, Adult, Venous Thromboembolism Prevention Forms: ED Department Discharge Referrals: Du Andersen MD [Primary Care Provider] - - Discharge Summary/Plan Comment DC Time >30 min.: No - Patient Data Vitals - Most Recent: Last Vital Signs Temp 36.8 C 01/24/19 13:55 Pulse 63 01/24/19 13:55 Resp 16 01/24/19 13:55 BP 134/77 01/24/19 13:55 Pulse Ox 96 01/24/19 13:55 Weight - Most Recent: 71.35 kg I&O - Last 24 hours: Intake & Output 01/24/19 01/24/19 01/24/19 06:59 14:59 22:59 Intake Total 939 358 Balance 939 358 Lab Results - Last 24 hrs: Laboratory Results - last 24 hr 01/23/19 01/23/19 01/23/19 Range/Units 18:10 18:10 18:10 WBC 5.4 (4.5-12.0) X10-3/uL RBC 2.07 L (4.30-5.75) x10(6)uL Hgb 7.2 L (13.5-17.8) g/dL Hct 19.7 L* (30.0-51.3) % MCV 95.0 (80-96) fL MCH 34.9 H (27.7-33.6) pg MCHC 36.7 H (32.2-35.4) g/dL RDW 13.5 (11.5-15.5) % Plt Count 40 L (125-369) X10(3)uL MPV 9.9 (7.4-10.4) fL Add Manual Diff Yes Neutrophils % (Manual) 77 (46-82) % Band Neutrophils % 6 (0-6) % Lymphocytes % (Manual) 10 L (13-37) % Monocytes % (Manual) 7 (4-12) % Polychromasia Few PT (8.7-11.1) INR (0.89-1.13) Sodium 134 L (135-145) mmol/L Potassium 5.8 H D (3.5-5.3) mmol/L Chloride 100 (100-110) mmol/L Carbon Dioxide 27 (21-32) mmol/L BUN 45 H (7-18) mg/dL Creatinine 2.2 H* (0.70-1.30) mg/dL Est Cr Clr Drug Dosing TNP Estimated GFR (MDRD) 31 L (>60) BUN/Creatinine Ratio 20.5 H (9-20) Glucose 271 H (80-116) mg/dL POC Glucose (80-116) mg/dL Calcium 8.0 L (8.6-10.2) mg/dL Phosphorus (2.6-4.6) mg/dL Magnesium (1.8-2.5) mg/dL C-Reactive Protein (0.5-0.9) mg/dL Urine Color (YELLOW) Urine Appearance (CLEAR) Urine pH (5.0-6.5) Ur Specific [place] (1.010-1.025) Urine Protein (NEGATIVE) mg/dL Urine Glucose (UA) (NORMAL) mg/dL Urine Ketones (NEGATIVE) mg/dL Urine Occult Blood (NEGATIVE) Urine Nitrite (NEGATIVE) Urine Bilirubin (NEGATIVE) Urine Urobilinogen (NEGATIVE) mg/dL Ur Leukocyte Esterase (NEGATIVE) Urine RBC (0-5) Urine WBC (0-5) Ur Squamous Epith Cells (NS,R,O) Urine Bacteria (NS) Blood Type O POSITIVE Gel Antibody Screen Negative Crossmatch See Detail 01/23/19 01/23/19 01/23/19 Range/Units 18:10 18:10 20:06 WBC (4.5-12.0) X10-3/uL RBC (4.30-5.75) x10(6)uL Hgb (13.5-17.8) g/dL Hct (30.0-51.3) % MCV (80-96) fL MCH (27.7-33.6) pg MCHC (32.2-35.4) g/dL RDW (11.5-15.5) % Plt Count (125-369) X10(3)uL MPV (7.4-10.4) fL Add Manual Diff Neutrophils % (Manual) (46-82) % Band Neutrophils % (0-6) % Lymphocytes % (Manual) (13-37) % Monocytes % (Manual) (4-12) % Polychromasia PT 10.0 (8.7-11.1) INR 1.03 (0.89-1.13) Sodium (135-145) mmol/L Potassium (3.5-5.3) mmol/L Chloride (100-110) mmol/L Carbon Dioxide (21-32) mmol/L BUN (7-18) mg/dL Creatinine (0.70-1.30) mg/dL Est Cr Clr Drug Dosing Estimated GFR (MDRD) (>60) BUN/Creatinine Ratio (9-20) Glucose (80-116) mg/dL POC Glucose (80-116) mg/dL Calcium (8.6-10.2) mg/dL Phosphorus (2.6-4.6) mg/dL Magnesium (1.8-2.5) mg/dL C-Reactive Protein 3.6 H* (0.5-0.9) mg/dL Urine Color Yellow (YELLOW) Urine Appearance Clear (CLEAR) Urine pH 6.0 (5.0-6.5) Ur Specific [place] 1.010 (1.010-1.025) Urine Protein Negative (NEGATIVE) mg/dL Urine Glucose (UA) 100 H (NORMAL) mg/dL Urine Ketones Negative (NEGATIVE) mg/dL Urine Occult Blood Moderate H (NEGATIVE) Urine Nitrite Negative (NEGATIVE) Urine Bilirubin Small H (NEGATIVE) Urine Urobilinogen Normal (NEGATIVE) mg/dL Ur Leukocyte Esterase Small H (NEGATIVE) Urine RBC 0-5 (0-5) Urine WBC 0-5 (0-5) Ur Squamous Epith Cells Few H (NS,R,O) Urine Bacteria Few H (NS) Blood Type Gel Antibody Screen Crossmatch 01/23/19 01/24/19 01/24/19 Range/Units 22:17 00:03 01:11 WBC (4.5-12.0) X10-3/uL RBC (4.30-5.75) x10(6)uL Hgb (13.5-17.8) g/dL Hct (30.0-51.3) % MCV (80-96) fL MCH (27.7-33.6) pg MCHC (32.2-35.4) g/dL RDW (11.5-15.5) % Plt Count (125-369) X10(3)uL MPV (7.4-10.4) fL Add Manual Diff Neutrophils % (Manual) (46-82) % Band Neutrophils % (0-6) % Lymphocytes % (Manual) (13-37) % Monocytes % (Manual) (4-12) % Polychromasia PT (8.7-11.1) INR (0.89-1.13) Sodium 140 (135-145) mmol/L Potassium 4.6 D (3.5-5.3) mmol/L Chloride 105 D (100-110) mmol/L Carbon Dioxide 28 (21-32) mmol/L BUN 44 H (7-18) mg/dL Creatinine 2.1 H* (0.70-1.30) mg/dL Est Cr Clr Drug Dosing 34.18 Estimated GFR (MDRD) 32 L (>60) BUN/Creatinine Ratio 21.0 H (9-20) Glucose 225 H (80-116) mg/dL POC Glucose 319 H D 194 H D (80-116) mg/dL Calcium 7.7 L (8.6-10.2) mg/dL Phosphorus (2.6-4.6) mg/dL Magnesium (1.8-2.5) mg/dL C-Reactive Protein (0.5-0.9) mg/dL Urine Color (YELLOW) Urine Appearance (CLEAR) Urine pH (5.0-6.5) Ur Specific [place] (1.010-1.025) Urine Protein (NEGATIVE) mg/dL Urine Glucose (UA) (NORMAL) mg/dL Urine Ketones (NEGATIVE) mg/dL Urine Occult Blood (NEGATIVE) Urine Nitrite (NEGATIVE) Urine Bilirubin (NEGATIVE) Urine Urobilinogen (NEGATIVE) mg/dL Ur Leukocyte Esterase (NEGATIVE) Urine RBC (0-5) Urine WBC (0-5) Ur Squamous Epith Cells (NS,R,O) Urine Bacteria (NS) Blood Type Gel Antibody Screen Crossmatch 01/24/19 01/24/19 01/24/19 Range/Units 03:57 05:02 06:20 WBC 4.3 L (4.5-12.0) X10-3/uL RBC 2.33 L (4.30-5.75) x10(6)uL Hgb 7.5 L (13.5-17.8) g/dL Hct 21.2 L* (30.0-51.3) % MCV 91.1 (80-96) fL MCH 32.2 (27.7-33.6) pg MCHC 35.4 (32.2-35.4) g/dL RDW 13.7 (11.5-15.5) % Plt Count 40 L (125-369) X10(3)uL MPV (7.4-10.4) fL Add Manual Diff Neutrophils % (Manual) (46-82) % Band Neutrophils % (0-6) % Lymphocytes % (Manual) (13-37) % Monocytes % (Manual) (4-12) % Polychromasia PT (8.7-11.1) INR (0.89-1.13) Sodium (135-145) mmol/L Potassium (3.5-5.3) mmol/L Chloride (100-110) mmol/L Carbon Dioxide (21-32) mmol/L BUN (7-18) mg/dL Creatinine (0.70-1.30) mg/dL Est Cr Clr Drug Dosing Estimated GFR (MDRD) (>60) BUN/Creatinine Ratio (9-20) Glucose (80-116) mg/dL POC Glucose 64 L D 70 L (80-116) mg/dL Calcium (8.6-10.2) mg/dL Phosphorus (2.6-4.6) mg/dL Magnesium (1.8-2.5) mg/dL C-Reactive Protein (0.5-0.9) mg/dL Urine Color (YELLOW) Urine Appearance (CLEAR) Urine pH (5.0-6.5) Ur Specific [place] (1.010-1.025) Urine Protein (NEGATIVE) mg/dL Urine Glucose (UA) (NORMAL) mg/dL Urine Ketones (NEGATIVE) mg/dL Urine Occult Blood (NEGATIVE) Urine Nitrite (NEGATIVE) Urine Bilirubin (NEGATIVE) Urine Urobilinogen (NEGATIVE) mg/dL Ur Leukocyte Esterase (NEGATIVE) Urine RBC (0-5) Urine WBC (0-5) Ur Squamous Epith Cells (NS,R,O) Urine Bacteria (NS) Blood Type Gel Antibody Screen Crossmatch 01/24/19 01/24/19 01/24/19 Range/Units 06:20 10:28 13:43 WBC (4.5-12.0) X10-3/uL RBC (4.30-5.75) x10(6)uL Hgb (13.5-17.8) g/dL Hct (30.0-51.3) % MCV (80-96) fL MCH (27.7-33.6) pg MCHC (32.2-35.4) g/dL RDW (11.5-15.5) % Plt Count (125-369) X10(3)uL MPV (7.4-10.4) fL Add Manual Diff Neutrophils % (Manual) (46-82) % Band Neutrophils % (0-6) % Lymphocytes % (Manual) (13-37) % Monocytes % (Manual) (4-12) % Polychromasia PT (8.7-11.1) INR (0.89-1.13) Sodium 142 (135-145) mmol/L Potassium 4.6 (3.5-5.3) mmol/L Chloride 107 (100-110) mmol/L Carbon Dioxide 26 (21-32) mmol/L BUN 40 H (7-18) mg/dL Creatinine 2.0 H* (0.70-1.30) mg/dL Est Cr Clr Drug Dosing 35.89 Estimated GFR (MDRD) 34 L (>60) BUN/Creatinine Ratio 20.0 (9-20) Glucose 148 H (80-116) mg/dL POC Glucose 165 H D 307 H D (80-116) mg/dL Calcium 7.5 L (8.6-10.2) mg/dL Phosphorus 4.8 H (2.6-4.6) mg/dL Magnesium 1.5 L (1.8-2.5) mg/dL C-Reactive Protein (0.5-0.9) mg/dL Urine Color (YELLOW) Urine Appearance (CLEAR) Urine pH (5.0-6.5) Ur Specific [place] (1.010-1.025) Urine Protein (NEGATIVE) mg/dL Urine Glucose (UA) (NORMAL) mg/dL Urine Ketones (NEGATIVE) mg/dL Urine Occult Blood (NEGATIVE) Urine Nitrite (NEGATIVE) Urine Bilirubin (NEGATIVE) Urine Urobilinogen (NEGATIVE) mg/dL Ur Leukocyte Esterase (NEGATIVE) Urine RBC (0-5) Urine WBC (0-5) Ur Squamous Epith Cells (NS,R,O) Urine Bacteria (NS) Blood Type Gel Antibody Screen Crossmatch Med Orders - Current: Current Medications Discontinued Medications Acetaminophen (Tylenol) 650 mg PO Q4H PRN PRN Reason: Pain (Mild 1-3)/fever Diphenhydramine HCl (Benadryl) 50 mg IVPUSH ONETIME ONE Stop: 01/24/19 00:27 Last Admin: 01/24/19 00:43 Dose: 50 mg Diphenhydramine HCl (Benadryl) 50 mg IVPUSH ONETIME ONE Stop: 01/24/19 07:27 Last Admin: 01/24/19 09:05 Dose: 50 mg Sodium Chloride (Normal Saline) 1,000 mls @ 125 mls/hr IV ASDIRECTED [facility] Last Admin: 01/23/19 19:35 Dose: 125 mls/hr Sodium Chloride (Normal Saline) 250 mls @ 100 mls/hr IV ASDIRECTED [facility] Last Admin: 01/24/19 11:41 Dose: 100 mls/hr Ciprofloxacin/Dextrose 400 mg/ (Premix) 200 mls @ 200 mls/hr IV Q12H [facility] Last Admin: 01/24/19 09:43 Dose: Not Given Sodium Chloride (Normal Saline) 1,000 mls @ 500 mls/hr IV ASDIRECTED [facility] Last Admin: 01/23/19 21:04 Dose: 500 mls/hr Sodium Chloride (Normal Saline) 250 mls @ 100 mls/hr IV ASDIRECTED [facility] Ciprofloxacin/Dextrose (Cipro In D5w 400 Mg/200 Ml) Confirm Administered Dose 200 mls @ as directed .ROUTE .STK-MED ONE Stop: 01/24/19 09:01 Last Admin: 01/24/19 09:41 Dose: 200 mls/hr Insulin Human Lispro (Humalog) 4 unit SUBCUT ONETIME ONE; Protocol Stop: 01/24/19 13:49 Last Admin: 01/24/19 14:14 Dose: 4 unit Insulin Human Regular (Humulin R) 5 unit IV ONETIME ONE Stop: 01/23/19 20:41 Last Admin: 01/23/19 20:53 Dose: 5 units Insulin Human Regular (Humulin R) 5 unit IV ONETIME ONE Stop: 01/23/19 23:31 Last Admin: 01/23/19 23:55 Dose: 5 units Sodium Bicarbonate (Sodium Bicarbonate 8.4%) 50 meq IVPUSH ONETIME ONE Stop: 01/23/19 20:41 Last Admin: 01/23/19 22:46 Dose: 50 meq Sodium Polystyrene Sulfonate (Kayexalate) 45 gm PO NOW ONE Stop: 01/23/19 20:41 Last Admin: 01/23/19 20:52 Dose: 45 gm - Exam General: Reports: Alert, Oriented, Cooperative Lungs: Reports: Clear to Auscultation, Normal Respiratory Effort Cardiovascular: Reports: Regular Rate, Regular Rhythm GI/Abdominal Exam: Normal Bowel Sounds, Soft, Non-Tender, No Distention Extremities: No Pedal Edema *Q Meaningful Use (DIS) - VTE *Q VTE Anticoagulation Contraindications: Med/TX Not Indicated/Need
== END 2019-01-24 14:30 | disposition home or self-care (01) ==
LOC: FB.ED 17:50 → FB.MS 19:43 → UNDOADMOB 19:43
PROVIDERS: ADMIT Family Medicine; ATTEND Family Medicine
DX: D46.C Myelodysplastic syndrome with isolated del(5q) chromosomal abnormality (principal); D63.8 Anemia in other chronic diseases classified elsewhere; N39.0 Urinary tract infection, site not specified; E11.65 Type 2 diabetes mellitus with hyperglycemia; E11.22 Type 2 diabetes mellitus with diabetic chronic kidney disease; N18.2 Chronic kidney disease, stage 2 (mild); I25.10 Atherosclerotic heart disease of native coronary artery without angina pectoris; I25.2 Old myocardial infarction; E78.00 Pure hypercholesterolemia, unspecified; E20.9 Hypoparathyroidism, unspecified; F17.200 Nicotine dependence, unspecified, uncomplicated; Z94.0 Kidney transplant status; Z79.82 Long term (current) use of aspirin; Z79.52 Long term (current) use of systemic steroids; Z79.4 Long term (current) use of insulin; Z79.899 Other long term (current) drug therapy
CPT/HCPCS: 36415; 36430; 80048; 81001; 82962; 83735; 84100; 85025; 85027; 85610; 86140; 86850; 86900; 86901; 86920; 86922; 96360; 99284; A9270; J0744; J1200; J1815; J7030; J7050; P9016; 96361; 96365; 96375; 96376; G0378

== ENCOUNTER 2019-02-08 13:57 | Emergency (ER) | payer MEDICARE, MEDICAID ==
--- NOTE | 2019-02-08 14:31 | EDM.PDOC ---
ED HPI GENERAL MEDICAL PROBLEM - General Chief Complaint: General Stated Complaint: SENT FROM CLINIC Time Seen by Provider: 02/08/19 13:57 Source of Information: Reports: Patient, Family History Limitations: Reports: No Limitations - History of Present Illness INITIAL COMMENTS - FREE TEXT/NARRATIVE: 58 y.o.w.m with multiple medical issues including a H/O Myelodysplastic syndrome , was seen last Saturday in the ed. His HGB was 7.4. it was decided, not to give him PRBC at that time. Pt felt weaker today and decided to come back to the ed fro further care. No pain. His last blood transfusion was 2.5 weeks ago. No N/V/ D no SOB or chest pain. BP 114/66 RR 18 Pulse ox 99% on RA Temp 36.8 Pulse 85 Onset Date: 01/14/19 Onset Time: 10:00 Duration: Week(s):, Chronic, Intermittent Location: Reports: Generalized Quality: Reports: Same as Previous Episode Severity: Moderate Improves with: Reports: Rest Worsens with: Reports: Movement Context: Reports: Other Associated Symptoms: Reports: No Other Symptoms - Related Data Allergies Allergy/AdvReac Type Severity Reaction Status Date / Time No Known Allergies Allergy Verified 02/08/19 14:06 Home Meds: Home Meds Cholecalciferol (Vitamin D3) [Vitamin D3] 1,000 unit PO DAILY 06/07/15 [History] Calcitriol [Rocaltrol] 0.5 mcg PO DAILY 08/22/15 [History] Magnesium Oxide [Magnesium] 500 mg PO TID 07/23/17 [History] Sodium Bicarbonate 650 mg PO BID 07/23/17 [History] Aspirin 81 mg PO DAILY 09/17/17 [History] predniSONE [Prednisone] 10 mg PO DAILY 09/17/17 [History] Tacrolimus [Prograf] 0.5 mg PO BEDTIME 02/24/18 [History] glipiZIDE [Glucotrol] 5 mg PO DAILY 02/24/18 [History] Citalopram [Citalopram HBr] 20 mg PO DAILY 08/07/18 [History] Fluconazole [Diflucan] 200 mg PO DAILY 08/07/18 [History] Gabapentin [Neurontin] 300 mg PO BID 08/07/18 [History] Insulin Degludec [Tresiba Flextouch U-100] 15 units SQ DAILY 08/07/18 [History] Ticagrelor [Brilinta] 90 mg PO BID 08/07/18 [History] Carvedilol 6.25 mg PO BID 10/16/18 [History] Acetaminophen with Codeine [Tylenol with Codeine #3 Tablet] 1 each PO Q6H [History] Tacrolimus 1 mg DAILY 02/08/19 [History] Past Medical History HEENT History: Reports: Impaired Vision Other HEENT History: Pt wears glasses Cardiovascular History: Reports: CAD, High Cholesterol, VT, Stents, Other (See Below) Other Cardiovascular History: viral menigitis 2015 (also "had VT 09/2017 went to [facility] they put in a stent" this recorded on 09/14/17) Respiratory History: Reports: SOB Gastrointestinal History: Reports: Cholelithiasis, Colon Polyp, Diverticulosis, Hemorrhoids Genitourinary History: Reports: Renal Disease, UTI, Recurrent, Other (See Below) Other Genitourinary History: kidney transplant (2001) pts fistula was removed early may 2017 from left arm Musculoskeletal History: Reports: Back Pain, Chronic Other Musculoskeletal History: has lump on neck vein and will need it removed Neurological History: Reports: Other (See Below) Other Neuro History: Cryptococcal meningitis Psychiatric History: Reports: Addiction, Anxiety, Depression, Panic Attack, Other (See Below) Other Psychiatric History: gets mildly depressed. POST ALCOHOLIC 1998 Endocrine/Metabolic History: Reports: Diabetes, Type II, Hypoparathyroidism Hematologic History: Reports: Anemia, Blood Transfusion(s) Other Hematologic History: myelodysplastic syndrome Immunologic History: Reports: Solid Organ Transplant Other Immunologic History: kidney transplant 2001 Dermatologic History: Reports: None - Infectious Disease History Infectious Disease History: Reports: Chicken Pox, Measles - Past Surgical History Head Surgeries/Procedures: Reports: None Cardiovascular Surgical History: Reports: Carotid Stents GI Surgical History: Reports: Appendectomy, Cholecystectomy, Colonoscopy Male Surgical History: Reports: Other (See Below) Other Male Surgeries/Procedures: kidney transplant in 2001 Endocrine Surgical History: Reports: Other (See Below) Other Endocrine Surgeries/Procedures: had thyroid removed Musculoskeletal Surgical History: Reports: Hip Replacement Other Musculoskeletal Surgeries/Procedures:: both hips-replaced Dermatological Surgical History: Reports: None Social & Family History - Family History Family Medical History: Noncontributory Cardiac: Reports: CAD, Other (See Below) Other Cardiac Family History: Brother had bypass OBGYN: Reports: Endocrine/Metabolic: Reports: Diabetes, type II - Tobacco Use Smoking Status *Q: Former Smoker Years of Tobacco use: 15 Packs/Tins Daily: 0.5 Used Tobacco, but Quit: No - Caffeine Use Caffeine Use: Reports: Coffee, Tea Other Caffeine Use: 2-3 cups per day Caffeine Use Comment: 2-3 cups/day - Recreational Drug Use Recreational Drug Use: Yes Recreational Drug Type: Reports: Marijuana/Hashish Recreational Drug Use Frequency: Monthly - Living Situation & Occupation Living situation: Reports: Alone Occupation: Disabled ED ROS GENERAL - Review of Systems Review Of Systems: See Below Constitutional: Reports: Weakness HEENT: Reports: No Symptoms Respiratory: Reports: No Symptoms Cardiovascular: Reports: No Symptoms Endocrine: Reports: No Symptoms GI/Abdominal: Reports: No Symptoms : Reports: No Symptoms Musculoskeletal: Reports: No Symptoms Skin: Reports: Pallor Neurological: Reports: No Symptoms Psychiatric: Reports: No Symptoms Hematologic/Lymphatic: Reports: No Symptoms Immunologic: Reports: No Symptoms ED EXAM, GENERAL - Physical Exam Exam: See Below Exam Limited By: Other (looks pale) General Appearance: Alert, WD/WN, Mild Distress, Moderate Distress Eye Exam: Bilateral Eye: Normal Inspection Ears: Normal External Exam Ear Exam: Bilateral Ear: Auricle Normal Nose: Normal Inspection, Normal Mucosa, No Blood Throat/Mouth: Normal Lips, Normal Voice, No Airway Compromise Head: Atraumatic, Normocephalic Neck: Normal Inspection, Supple, Non-Tender, Full Range of Motion Respiratory/Chest: No Respiratory Distress, Lungs Clear, Normal Breath Sounds Cardiovascular: Normal Peripheral Pulses, Regular Rate, Rhythm, No Edema, No Gallop GI/Abdominal: Normal Bowel Sounds, Soft, Non-Tender, No Organomegaly (Male) Exam: Deferred Rectal (Males) Exam: Deferred Back Exam: Normal Inspection Extremities: Normal Inspection, Normal Range of Motion, Non-Tender Neurological: Alert, Oriented, CN II-XII Intact Psychiatric: Normal Affect, Normal Mood Skin Exam: Warm, Dry, Intact, Pallor Lymphatic: No Adenopathy Course - Vital Signs Text/Narrative:: 58 y.o.w.m with multiple medical issues including a H/O Myelodysplastic syndrome , was seen last Saturday in the ed. His HGB was 7.4. it was decided, not to give him PRBC at that time. Pt felt weaker today and decided to come back to the ed fro further care. No pain. His last blood transfusion was 2.5 weeks ago. No N/V/ D no SOB or chest pain. BP 114/66 RR 18 Pulse ox 99% on RA Temp 36.8 Pulse 85 PE: Pale, weak appearing 58 y.o.w. weak. Imaging:not indicated Labs: WBC 5.5 HGB 7.2 HCT 20.r GFR 39 Ca 8.2 RBC 2.23 BUN/CR ration elevated. PLTS 53K Impression: Anemia. Thrombocytopenia. Tx: 2 units of PRBC, Clonidine Reexam: Improved Plan: D/C with instructions Last Recorded V/S: Last Vital Signs Temp 36.6 C 02/08/19 20:40 Pulse 65 02/08/19 20:40 Resp 17 02/08/19 20:40 BP 186/92 H 02/08/19 21:33 Pulse Ox 98 02/08/19 20:40 - Orders/Labs/Meds Orders: Active Orders 24 hr Category Date Time Status Peripheral IV Insertion Adult [OM.PC] Routine Oth 02/08/19 15:38 Ordered Transfuse Red Blood Cells [COMM] Stat Oth 02/08/19 15:05 Ordered Labs: Laboratory Tests 02/08/19 02/08/19 02/08/19 Range/Units 14:11 14:11 14:11 WBC 5.5 (4.5-12.0) X10-3/uL RBC 2.35 L (4.30-5.75) x10(6)uL Hgb 7.2 L (13.5-17.8) g/dL Hct 20.4 L* (30.0-51.3) % MCV 86.8 (80-96) fL MCH 30.5 (27.7-33.6) pg MCHC 35.1 (32.2-35.4) g/dL RDW 13.0 (11.5-15.5) % Plt Count 34 L* (125-369) X10(3)uL MPV 9.8 (7.4-10.4) fL Neut % (Auto) Water Maintenance Supervisor Lymph % (Auto) Water Maintenance Supervisor [place] % (Auto) Water Maintenance Supervisor Eos % (Auto) Water Maintenance Supervisor Baso % (Auto) Water Maintenance Supervisor Neut # (Auto) Water Maintenance Supervisor Lymph # (Auto) Water Maintenance Supervisor [place] # (Auto) Water Maintenance Supervisor Eos # (Auto) Water Maintenance Supervisor Baso # (Auto) Water Maintenance Supervisor Add Manual Diff Yes Neutrophils % (Manual) 66 (46-82) % Band Neutrophils % 3 (0-6) % Lymphocytes % (Manual) 21 (13-37) % Monocytes % (Manual) 7 (4-12) % Eosinophils % (Manual) 3 (0-5) % PT 9.9 (8.7-11.1) INR 1.02 (0.89-1.13) Sodium 135 (135-145) mmol/L Potassium 4.6 (3.5-5.3) mmol/L Chloride 101 D (100-110) mmol/L Carbon Dioxide 26 (21-32) mmol/L BUN 40 H (7-18) mg/dL Creatinine 1.8 H (0.70-1.30) mg/dL Est Cr Clr Drug Dosing 39.88 mL/min Estimated GFR (MDRD) 39 L (>60) BUN/Creatinine Ratio 22.2 H (9-20) Glucose 242 H D (80-116) mg/dL Calcium 8.2 L (8.6-10.2) mg/dL Blood Type Gel Antibody Screen Crossmatch 02/08/19 Range/Units 14:11 WBC (4.5-12.0) X10-3/uL RBC (4.30-5.75) x10(6)uL Hgb (13.5-17.8) g/dL Hct (30.0-51.3) % MCV (80-96) fL MCH (27.7-33.6) pg MCHC (32.2-35.4) g/dL RDW (11.5-15.5) % Plt Count (125-369) X10(3)uL MPV (7.4-10.4) fL Neut % (Auto) Lymph % (Auto) [place] % (Auto) Eos % (Auto) Baso % (Auto) Neut # (Auto) Lymph # (Auto) [place] # (Auto) Eos # (Auto) Baso # (Auto) Add Manual Diff Neutrophils % (Manual) (46-82) % Band Neutrophils % (0-6) % Lymphocytes % (Manual) (13-37) % Monocytes % (Manual) (4-12) % Eosinophils % (Manual) (0-5) % PT (8.7-11.1) INR (0.89-1.13) Sodium (135-145) mmol/L Potassium (3.5-5.3) mmol/L Chloride (100-110) mmol/L Carbon Dioxide (21-32) mmol/L BUN (7-18) mg/dL Creatinine (0.70-1.30) mg/dL Est Cr Clr Drug Dosing mL/min Estimated GFR (MDRD) (>60) BUN/Creatinine Ratio (9-20) Glucose (80-116) mg/dL Calcium (8.6-10.2) mg/dL Blood Type O POSITIVE Gel Antibody Screen Negative Crossmatch See Detail Meds: Medications Discontinued Medications Generic Name Dose Route Start Last Admin Trade Name Freq PRN Reason Stop Dose Admin Clonidine HCl 0.1 mg 02/08/19 21:28 02/08/19 21:33 Catapres PO 02/08/19 21:29 0.1 mg ONETIME ONE Administration Diphenhydramine HCl 50 mg 02/08/19 15:49 Benadryl IVPUSH 02/08/19 15:50 ONETIME ONE Diphenhydramine HCl 50 mg 02/08/19 15:52 02/08/19 15:59 Benadryl PO 02/08/19 15:53 50 mg ONETIME ONE Administration Sodium Chloride 250 mls @ 100 mls/hr 02/08/19 15:15 02/08/19 18:12 Normal Saline IV 100 mls/hr ASDIRECTED LARON Administration Sodium Chloride 10 ml 02/08/19 15:38 02/08/19 15:25 Saline Flush FLUSH 10 ml ASDIRECTED PRN Administration Keep Vein Open Departure - Departure Time of Disposition: 00:05 Disposition: Home, Self-Care 01 Condition: Good Clinical Impression: Anemia with low platelet count Anemia Qualifiers: Anemia type: due to chronic kidney disease Chronic kidney disease stage: stage 3 (moderate) Qualified Code(s): N18.3 - Chronic kidney disease, stage 3 ( moderate) - Discharge Information Instructions: Blood Transfusion, Adult, [facility] Referrals: Du Andersen MD [Primary Care Provider] - Forms: ED Department Discharge, ED Return to Work/School Form Care Plan Goals: Please f/u with your PMD in am. Please come back if your symptoms get worse acutely - My Orders Last 24 Hours: My Active Orders 02/08/19 15:05 Transfuse Red Blood Cells [COMM] Stat 02/08/19 15:38 Peripheral IV Insertion Adult [OM.PC] Routine - Assessment/Plan Last 24 Hours: My Active Orders 02/08/19 15:05 Transfuse Red Blood Cells [COMM] Stat 02/08/19 15:38 Peripheral IV Insertion Adult [OM.PC] Routine
[2019-02-08] MEDS ORDERED: Sodium Chloride 0.9% 250 ML IV SCH (15:15)
[2019-02-08] MEDS ORDERED: Sodium Chloride 0.9% 10 ML Syringe FLUSH PRN (15:38)
[2019-02-08] MEDS ORDERED: diphenhydrAMINE 50 MG/ML SDV IVPUSH ONE (15:49)
[2019-02-08] MEDS ORDERED: diphenhydrAMINE 50 MG Cap PO ONE (15:52)
[2019-02-08 20:50] VITALS: PULSE 65
[2019-02-08] MEDS ORDERED: cloNIDine 0.1 MG Tab PO ONE (21:28)
[2019-02-08 21:34] VITALS: BP 186/92
== END 2019-02-08 21:40 | disposition home or self-care (01) ==
LOC: FB.ED 13:57 → FB.MS 15:12 → FB.ED 21:40
DX: E11.22 Type 2 diabetes mellitus with diabetic chronic kidney disease (principal); N18.3 Chronic kidney disease, stage 3 (moderate); D63.1 Anemia in chronic kidney disease; I25.2 Old myocardial infarction; I25.10 Atherosclerotic heart disease of native coronary artery without angina pectoris; E20.9 Hypoparathyroidism, unspecified; Z94.0 Kidney transplant status; Z79.4 Long term (current) use of insulin; Z79.82 Long term (current) use of aspirin; Z95.5 Presence of coronary angioplasty implant and graft; Z87.891 Personal history of nicotine dependence
CPT/HCPCS: 36415; 36430; 80048; 85025; 85610; 86850; 86900; 86901; 86920; 86922; 99285; A9270; J7050; P9016

== ENCOUNTER 2019-02-20 11:25 | Inpatient (IN) | payer MEDICARE, MEDICAID ==
--- NOTE | 2019-02-20 11:41 | EDM.PDOC ---
ED HPI GENERAL MEDICAL PROBLEM - General Chief Complaint: Genitourinary Problem Time Seen by Provider: 02/20/19 11:38 Source of Information: Reports: Patient History Limitations: Reports: No Limitations - History of Present Illness INITIAL COMMENTS - FREE TEXT/NARRATIVE: 58-year-old male who presents to the emergency department via his friend reporting that he is aching all over, he cannot move, he feels weak and dizzy and he has had urinary frequency and incontinence. I have seen the patient in the past and he appears to be more lethargic than normal and is a poor historian today which is not his normal. He reports that he was feeling his normal self until yesterday during the day when he began to feel achy all over and more weak. Last night, the achiness seemed to intensify and he developed urinary frequency and incontinence. Today, he did not have the ability to get around, with every movement causing him pain and him feeling weak all over and he called his friend to bring him to the emergency department. He reports that his pain is aching and is a 10/10. No reported fever at home but he did have a temperature of 38.3C here. He reports that he has been drinking water well. No nausea or vomiting. No cough. No difficulty breathing. This is really all the history that I can obtain at this point. There are no other associated signs or symptoms. There are no other modifying factors. Onset: Other (Yesterday as above.) Duration: Getting Worse Location: Reports: Generalized Quality: Reports: Ache Severity: Severe Improves with: Reports: Rest Worsens with: Reports: Movement Context: Reports: Other (As above) Associated Symptoms: Reports: Confusion, Loss of Appetite, Malaise, Weakness, Other (Urinary frequency and incontinence.) Treatments [employer]: Reports: Other (see below) (Nothing) generalized Pain Score (Numeric/FACES): 8 - Related Data Allergies Allergy/AdvReac Type Severity Reaction Status Date / Time No Known Allergies Allergy Verified 02/20/19 11:49 Home Meds: Home Meds Cholecalciferol (Vitamin D3) [Vitamin D3] 1,000 unit PO DAILY 06/07/15 [History] Calcitriol [Rocaltrol] 0.5 mcg PO DAILY 08/22/15 [History] Magnesium Oxide [Magnesium] 500 mg PO TID 07/23/17 [History] Sodium Bicarbonate 650 mg PO BID 07/23/17 [History] Aspirin 81 mg PO DAILY 09/17/17 [History] predniSONE [Prednisone] 10 mg PO DAILY 09/17/17 [History] Tacrolimus [Prograf] 0.5 mg PO BEDTIME 02/24/18 [History] glipiZIDE [Glucotrol] 5 mg PO DAILY 02/24/18 [History] Citalopram [Citalopram HBr] 20 mg PO DAILY 08/07/18 [History] Fluconazole [Diflucan] 200 mg PO DAILY 08/07/18 [History] Gabapentin [Neurontin] 300 mg PO BID 08/07/18 [History] Insulin Degludec [Tresiba Flextouch U-100] 15 units SQ DAILY 08/07/18 [History] Ticagrelor [Brilinta] 90 mg PO BID 08/07/18 [History] Carvedilol 6.25 mg PO BID 10/16/18 [History] Acetaminophen with Codeine [Tylenol with Codeine #3 Tablet] 1 each PO Q6H [History] Tacrolimus 1 mg DAILY 02/08/19 [History] Past Medical History HEENT History: Reports: Impaired Vision Other HEENT History: Pt wears glasses Cardiovascular History: Reports: CAD, High Cholesterol, [place], Stents, Other (See Below) Other Cardiovascular History: viral menigitis 2015 (also "had [place] 09/2017 went to [place] they put in a stent" this recorded on 09/14/17) Respiratory History: Reports: Other (See Below) (Fluid overload/pulmonary edema in the past.) Gastrointestinal History: Reports: Cholelithiasis, Colon Polyp, Diverticulosis, Hemorrhoids Genitourinary History: Reports: Renal Disease, UTI, Recurrent, Other (See Below) Other Genitourinary History: kidney transplant (2001) pts fistula was removed early may 2017 from left arm Musculoskeletal History: Reports: Back Pain, Chronic Other Musculoskeletal History: has lump on neck vein and will need it removed Neurological History: Reports: Other (See Below) Other Neuro History: Cryptococcal meningitis Psychiatric History: Reports: Addiction, Anxiety, Depression, Panic Attack, Other (See Below) Other Psychiatric History: gets mildly depressed. POST ALCOHOLIC 1998 Endocrine/Metabolic History: Reports: Diabetes, Type II, Hypoparathyroidism Hematologic History: Reports: Anemia, Blood Transfusion(s) Other Hematologic History: myelodysplastic syndrome Immunologic History: Reports: Immunosuppression, Solid Organ Transplant Other Immunologic History: kidney transplant 2002 Dermatologic History: Reports: None - Infectious Disease History Infectious Disease History: Reports: Chicken Pox, Measles - Past Surgical History Cardiovascular Surgical History: Reports: Carotid Stents GI Surgical History: Reports: Appendectomy, Cholecystectomy, Colonoscopy Male Surgical History: Reports: Other (See Below) Other Male Surgeries/Procedures: kidney transplant in 2001 Endocrine Surgical History: Reports: Other (See Below) Other Endocrine Surgeries/Procedures: had thyroid removed Musculoskeletal Surgical History: Reports: Hip Replacement Other Musculoskeletal Surgeries/Procedures:: both hips-replaced Social & Family History - Family History Family Medical History: Noncontributory Cardiac: Reports: CAD, Other (See Below) Other Cardiac Family History: Brother had bypass OBGYN: Reports: Endocrine/Metabolic: Reports: Diabetes, type II - Tobacco Use Smoking Status *Q: Unknown Ever Smoked (Nonsmoker) - Caffeine Use Caffeine Use: Reports: Coffee, Tea Other Caffeine Use: 2-3 cups per day Caffeine Use Comment: 2-3 cups/day - Alcohol Use Alcohol Use History: Yes Alcohol Use in Last Twelve Months: No Alcohol Use Comment: History of alcohol abuse in the past but is sober according to the patient and to his friend. - Living Situation & Occupation Living situation: Reports: Alone Occupation: Disabled Social History Comment: He is here with a friend. ED ROS GENERAL - Review of Systems Review Of Systems: See Below Constitutional: Reports: Malaise, Weakness, Fatigue, Decreased Appetite HEENT: Reports: No Symptoms Respiratory: Reports: No Symptoms Cardiovascular: Reports: No Symptoms GI/Abdominal: Reports: No Symptoms : Reports: Dysuria, Frequency, Incontinence Musculoskeletal: Reports: Other (Aching all over) Skin: Reports: No Symptoms Neurological: Reports: Dizziness, Weakness Hematologic/Lymphatic: Reports: Anemia Immunologic: Reports: Other (On immunosuppressive agents) ED EXAM, GENERAL - Physical Exam Exam: See Below Exam Limited By: No Limitations General Appearance: Lethargic, Moderate Distress, Other (Will awaken and converse but is difficult to awaken and he seemed somewhat confused.) Eye Exam: Bilateral Eye: EOMI, Normal Inspection, Other (Sclera anicteric) Ears: Normal External Exam, Hearing Grossly Normal Ear Exam: Bilateral Ear: Auricle Normal Nose: Normal Inspection, Normal Mucosa, No Blood Throat/Mouth: Normal Voice, No Airway Compromise, Other (Dry mucous membranes) Head: Atraumatic, Normocephalic Neck: Normal Inspection, Supple, Non-Tender, Full Range of Motion Respiratory/Chest: No Respiratory Distress, Lungs Clear, Normal Breath Sounds, No Accessory Muscle Use Cardiovascular: Normal Peripheral Pulses, Regular Rate, Rhythm, No Edema, No JVD Peripheral Pulses: 2+: Radial (L), Radial (R) GI/Abdominal: Normal Bowel Sounds, Soft, Non-Tender, No Mass Back Exam: Normal Inspection Extremities: Normal Inspection, No Pedal Edema, Normal Capillary Refill, Pallor Neurological: CN II-XII Intact, No Motor/Sensory Deficits, Slow to Respond Skin Exam: Warm, Dry, No Rash Course - Vital Signs Last Recorded V/S: Last Vital Signs Temp 37.3 C 02/20/19 13:12 Pulse 80 02/20/19 13:12 Resp 16 02/20/19 13:12 BP 127/61 02/20/19 13:12 Pulse Ox 93 L 02/20/19 13:12 - Orders/Labs/Meds Orders: Active Orders 24 hr Category Date Time Status Admission Status [Patient Status] [ADT] Routine ADT 02/20/19 13:23 Ordered Chest 2V [CR] Stat Exams 02/20/19 11:47 Taken CULTURE BLOOD [BC] Urgent Lab 02/20/19 11:49 Ordered CULTURE BLOOD [BC] Urgent Lab 02/20/19 12:02 Received CULTURE URINE [RM] Stat Lab 02/20/19 13:23 TYPE AND SCREEN [BBK] Stat Lab 02/20/19 13:21 Ordered Sodium Chloride 0.9% [Normal Saline] 1,000 ml Med 02/20/19 12:00 Active IV ASDIRECTED Sodium Chloride 0.9% [Saline Flush] Med 02/20/19 11:47 Active 10 ml FLUSH ASDIRECTED PRN cefTRIAXone [Rocephin] 1 gm Med 02/20/19 13:22 Ordered Sodium Chloride 0.9% [Normal Saline] 50 ml IV ONETIME Blood Culture x2 Reflex Set [OM.PC] Urgent Oth 02/20/19 11:47 Ordered Peripheral IV Insertion Adult [OM.PC] Routine Oth 02/20/19 11:47 Ordered Medication Orders Sodium Chloride (Normal Saline) 1,000 mls @ 999 mls/hr IV ASDIRECTED LARON Last Infusion: 02/20/19 13:20 Dose: 125 mls/hr Admin: 02/20/19 12:40 Dose: 999 mls/hr Sodium Chloride (Saline Flush) 10 ml FLUSH ASDIRECTED PRN PRN Reason: Keep Vein Open Last Admin: 02/20/19 12:05 Dose: 10 ml Labs: Laboratory Tests 02/20/19 02/20/19 02/20/19 Range/Units 12:02 12:02 12:02 WBC 4.8 (4.5-12.0) X10-3/uL RBC 2.08 L (4.30-5.75) x10(6)uL Hgb 6.5 L* (13.5-17.8) g/dL Hct 18.3 L* (30.0-51.3) % MCV 88.2 (80-96) fL MCH 31.3 (27.7-33.6) pg MCHC 35.5 H (32.2-35.4) g/dL RDW 14.0 (11.5-15.5) % Plt Count 40 L (125-369) X10(3)uL MPV 8.6 (7.4-10.4) fL Add Manual Diff Yes Neutrophils % (Manual) 59 (46-82) % Band Neutrophils % 4 (0-6) % Lymphocytes % (Manual) 27 (13-37) % Monocytes % (Manual) 10 (4-12) % Sodium 133 L (135-145) mmol/L Potassium 4.7 (3.5-5.3) mmol/L Chloride 97 L (100-110) mmol/L Carbon Dioxide 30 (21-32) mmol/L BUN 38 H (7-18) mg/dL Creatinine 1.8 H (0.70-1.30) mg/dL Est Cr Clr Drug Dosing 39.88 mL/min Estimated GFR (MDRD) 39 L (>60) BUN/Creatinine Ratio 21.1 H (9-20) Glucose 266 H (80-116) mg/dL Lactic Acid 0.8 (0.4-2.2) mmol/L Calcium 7.0 L (8.6-10.2) mg/dL Magnesium 2.3 (1.8-2.5) mg/dL Total Bilirubin 0.5 (0.1-1.3) mg/dL AST 31 H D (5-25) IU/L ALT 56 H D (12-36) U/L Alkaline Phosphatase 185 H (56-112) IU/L C-Reactive Protein (0.5-0.9) mg/dL Total Protein 6.2 (6.0-8.0) g/dL Albumin 2.3 L (3.5-5.2) g/dL Globulin 3.9 g/dL Albumin/Globulin Ratio 0.6 Urine Color (YELLOW) Urine Appearance (CLEAR) Urine pH (5.0-6.5) Ur Specific [place] (1.010-1.025) Urine Protein (NEGATIVE) mg/dL Urine Glucose (UA) (NORMAL) mg/dL Urine Ketones (NEGATIVE) mg/dL Urine Occult Blood (NEGATIVE) Urine Nitrite (NEGATIVE) Urine Bilirubin (NEGATIVE) Urine Urobilinogen (NEGATIVE) mg/dL Ur Leukocyte Esterase (NEGATIVE) Urine RBC (0-5) Urine WBC (0-5) Ur Squamous Epith Cells (NS,R,O) Urine Bacteria (NS) 02/20/19 02/20/19 Range/Units 12:02 12:30 WBC (4.5-12.0) X10-3/uL RBC (4.30-5.75) x10(6)uL Hgb (13.5-17.8) g/dL Hct (30.0-51.3) % MCV (80-96) fL MCH (27.7-33.6) pg MCHC (32.2-35.4) g/dL RDW (11.5-15.5) % Plt Count (125-369) X10(3)uL MPV (7.4-10.4) fL Add Manual Diff Neutrophils % (Manual) (46-82) % Band Neutrophils % (0-6) % Lymphocytes % (Manual) (13-37) % Monocytes % (Manual) (4-12) % Sodium (135-145) mmol/L Potassium (3.5-5.3) mmol/L Chloride (100-110) mmol/L Carbon Dioxide (21-32) mmol/L BUN (7-18) mg/dL Creatinine (0.70-1.30) mg/dL Est Cr Clr Drug Dosing mL/min Estimated GFR (MDRD) (>60) BUN/Creatinine Ratio (9-20) Glucose (80-116) mg/dL Lactic Acid (0.4-2.2) mmol/L Calcium (8.6-10.2) mg/dL Magnesium (1.8-2.5) mg/dL Total Bilirubin (0.1-1.3) mg/dL AST (5-25) IU/L ALT (12-36) U/L Alkaline Phosphatase (56-112) IU/L C-Reactive Protein > 12.0 H* (0.5-0.9) mg/dL Total Protein (6.0-8.0) g/dL Albumin (3.5-5.2) g/dL Globulin g/dL Albumin/Globulin Ratio Urine Color Yellow (YELLOW) Urine Appearance Slightly cloudy (CLEAR) Urine pH 6.0 (5.0-6.5) Ur Specific [place] 1.015 (1.010-1.025) Urine Protein Trace (NEGATIVE) mg/dL Urine Glucose (UA) Normal (NORMAL) mg/dL Urine Ketones Negative (NEGATIVE) mg/dL Urine Occult Blood Large H (NEGATIVE) Urine Nitrite Negative (NEGATIVE) Urine Bilirubin Negative (NEGATIVE) Urine Urobilinogen Normal (NEGATIVE) mg/dL Ur Leukocyte Esterase Moderate H (NEGATIVE) Urine RBC 5-10 H (0-5) Urine WBC 20-30 H (0-5) Ur Squamous Epith Cells Rare (NS,R,O) Urine Bacteria Few H (NS) Meds: Medications Generic Name Dose Route Start Last Admin Trade Name Freq PRN Reason Stop Dose Admin Sodium Chloride 1,000 mls @ 999 mls/hr 02/20/19 12:00 02/20/19 13:20 Normal Saline IV 125 mls/hr ASDIRECTED LARON Infusion Sodium Chloride 10 ml 02/20/19 11:47 02/20/19 12:05 Saline Flush FLUSH 10 ml ASDIRECTED PRN Administration Keep Vein Open Discontinued Medications Generic Name Dose Route Start Last Admin Trade Name Freq PRN Reason Stop Dose Admin Acetaminophen 1,000 mg 02/20/19 11:49 02/20/19 12:15 Tylenol Extra Strength PO 02/20/19 11:50 1,000 mg ONETIME ONE Administration - Radiology Interpretation Free Text/Narrative:: Chest x-ray PA and lateral showed no acute disease. - Re-Assessments/Exams Free Text/Narrative Re-Assessment/Exam: 02/20/19 13:25: The patient remains lethargic and somewhat confused. He is able to be awakened and is able to converse. He has remained hemodynamically stable while in the emergency department. He does not appear to be having any rest or distress. His exam, history and laboratory data support him having a urinary tract infection with early sepsis. He also has severe symptomatic anemia that will also need to be addressed. These are are problems that cannot be safely managed as an outpatient. He will need admission to the hospital for IV fluid therapy, IV antibiotic therapy and blood transfusions. He will need careful monitoring and he will need at least a 2 midnight hospital stay to accomplish this plan of care. I discussed the patient's case with Dr. Saab and she has agreed to admit the patient. I discussed this with the patient and he is in agreement with the plans for admission. Blood cultures 2 have been obtained. A urine culture is been obtained. The patient will be given Rocephin 1 g IV. Also the patient has received a type and screen and will be transfused with packed red blood cells while he is in the hospital. Departure - Departure Time of Disposition: 13:30 Disposition: Admitted As Inpatient 65 Condition: Fair Clinical Impression: Severe anemia, Immunocompromised state UTI (urinary tract infection) Qualifiers: Urinary tract infection type: acute pyelonephritis Qualified Code(s): N10 - Acute pyelonephritis Sepsis Qualifiers: Sepsis type: sepsis due to unspecified organism Sepsis acute organ dysfunction status: with acute organ dysfunction Severe sepsis acute organ dysfunction type : encephalopathy Severe sepsis shock status: without septic shock Qualified Code (s): A41.9 - Sepsis, unspecified organism; R65.20 - Severe sepsis without septic shock; G93.40 - Encephalopathy, unspecified - Discharge Information Referrals: Du Andersen MD [Primary Care Provider] - Forms: ED Department Discharge - My Orders Last 24 Hours: My Active Orders 02/20/19 11:47 Chest 2V [CR] Stat Sodium Chloride 0.9% [Saline Flush] 10 ml FLUSH ASDIRECTED PRN Blood Culture x2 Reflex Set [OM.PC] Urgent Peripheral IV Insertion Adult [OM.PC] Routine 02/20/19 11:49 CULTURE BLOOD [BC] Urgent 02/20/19 12:00 Sodium Chloride 0.9% [Normal Saline] 1,000 ml IV ASDIRECTED 02/20/19 12:02 CULTURE BLOOD [BC] Urgent 02/20/19 13:21 TYPE AND SCREEN [BBK] Stat 02/20/19 13:22 cefTRIAXone [Rocephin] 1 gm Sodium Chloride 0.9% [Normal Saline] 50 ml IV ONETIME 02/20/19 13:23 Admission Status [Patient Status] [ADT] Routine CULTURE URINE [RM] Stat - Assessment/Plan Last 24 Hours: My Active Orders 02/20/19 11:47 Chest 2V [CR] Stat Sodium Chloride 0.9% [Saline Flush] 10 ml FLUSH ASDIRECTED PRN Blood Culture x2 Reflex Set [OM.PC] Urgent Peripheral IV Insertion Adult [OM.PC] Routine 02/20/19 11:49 CULTURE BLOOD [BC] Urgent 02/20/19 12:00 Sodium Chloride 0.9% [Normal Saline] 1,000 ml IV ASDIRECTED 02/20/19 12:02 CULTURE BLOOD [BC] Urgent 02/20/19 13:21 TYPE AND SCREEN [BBK] Stat 02/20/19 13:22 cefTRIAXone [Rocephin] 1 gm Sodium Chloride 0.9% [Normal Saline] 50 ml IV ONETIME 02/20/19 13:23 Admission Status [Patient Status] [ADT] Routine CULTURE URINE [RM] Stat
[2019-02-20] MEDS ORDERED: Acetaminophen 500 MG Tab PO ONE (11:49)
[2019-02-20] MEDS ORDERED: Sodium Chloride 0.9% 1,000 ML IV SCH (12:00)
[2019-02-20] MEDS: Sodium Chloride 0.9% 10 ML Syringe FLUSH PRN (12:05)
[2019-02-20] MEDS ORDERED: cefTRIAXone 1 GM in Sodium Chloride 0.9% 50 ML IV ONE (13:22)
--- NOTE | 2019-02-20 14:02 | CR ---
INDICATION: Fever. CHEST: PA and lateral views of the chest, 02/20/19, were compared with and 11/14/18. There is blunting of the left costophrenic angle with slightly heavy markings in that area, raising question of minimal pneumonia and pleuritis. The heart appears to be at the upper limits of normal in size or slightly enlarged. The aorta is tortuous with calcification in the arch. Bridging hyperostotic changes with flowing appearance are noted in the spine, mostly anteriorly, suggesting DISH. A mild dextroconvex scoliosis of the upper middle thoracic spine is noted. Mildly flattened diaphragm leaves and hyperaeration raise question of COPD. No gross consolidating pneumonia was identified. IMPRESSION: 1. Suggestion of minimal patchy pneumonia and pleuritis left lung base. 2. ASHD, heart at the upper limits of normal in size or slightly enlarged. 3. DISH and scoliosis. 4. Possible COPD - correlate clinically. MTDD
[2019-02-20] MEDS ORDERED: Sodium Chloride 0.9% 250 ML IV SCH (14:15)
--- NOTE | 2019-02-20 14:53 | PCM.HP.2 ---
H&P History of Present Illness - General Date of Service: 02/20/19 Admit Problem/Dx: Admission Diagnosis/Problem Admission Diagnosis/Problem Pyelonephritis Source of Information: Patient, Provider History Limitations: Reports: Altered Mental Status - History of Present Illness Initial Comments - Free Text/Narative: 58-year-old male who presented to the emergency department with urinary frequency and incontinence over the last few days. He is achy, dizzy, weakness, more lethargic than normal and is a poor historian today which is not his normal. He states he gets jaundice when he needs transfusion. No reported fever at home but he did have a temperature of 38.3C in ER, came down after Tylenol given. He reports that he has been drinking water well. No nausea or vomiting. Cough, chest congestion. No difficulty breathing. History limited due to mental status. Received Rocephin in ER. He is immunosuppressed, CXR shows possibly pneumonia and UA is positive for infection. BC and UC done in ER. generalized Pain Score (Numeric/FACES): 8 - Related Data Allergies/Adverse Reactions: Allergies Allergy/AdvReac Type Severity Reaction Status Date / Time No Known Allergies Allergy Verified 02/20/19 11:49 Home Medications: Home Meds Cholecalciferol (Vitamin D3) [Vitamin D3] 1,000 unit PO DAILY 06/07/15 [History] Calcitriol [Rocaltrol] 0.5 mcg PO DAILY 08/22/15 [History] Magnesium Oxide [Magnesium] 500 mg PO TID 07/23/17 [History] Sodium Bicarbonate 650 mg PO BID 07/23/17 [History] Aspirin 81 mg PO DAILY 09/17/17 [History] predniSONE [Prednisone] 10 mg PO DAILY 09/17/17 [History] Tacrolimus [Prograf] 0.5 mg PO BEDTIME 02/24/18 [History] glipiZIDE [Glucotrol] 5 mg PO DAILY 02/24/18 [History] Citalopram [Citalopram HBr] 20 mg PO DAILY 08/07/18 [History] Fluconazole [Diflucan] 200 mg PO DAILY 08/07/18 [History] Gabapentin [Neurontin] 300 mg PO BID 08/07/18 [History] Insulin Degludec [Tresiba Flextouch U-100] 15 units SQ DAILY 08/07/18 [History] Ticagrelor [Brilinta] 90 mg PO BID 08/07/18 [History] Carvedilol 6.25 mg PO BID 10/16/18 [History] Acetaminophen with Codeine [Tylenol with Codeine #3 Tablet] 1 each PO Q6H [History] Tacrolimus 1 mg DAILY 02/08/19 [History] Past Medical History HEENT History: Reports: Impaired Vision Other HEENT History: Pt wears glasses Cardiovascular History: Reports: CAD, High Cholesterol, NH, Stents, Other (See Below) Other Cardiovascular History: viral menigitis 2015 (also "had NH 09/2017 went to [place] they put in a stent" this recorded on 09/14/17) Respiratory History: Reports: Other (See Below) (Fluid overload/pulmonary edema in the past.) Gastrointestinal History: Reports: Cholelithiasis, Colon Polyp, Diverticulosis, Hemorrhoids Genitourinary History: Reports: Renal Disease, UTI, Recurrent, Other (See Below) Other Genitourinary History: kidney transplant (2001) pts fistula was removed early may 2017 from left arm Musculoskeletal History: Reports: Back Pain, Chronic Other Musculoskeletal History: has lump on neck vein and will need it removed Neurological History: Reports: Other (See Below) Other Neuro History: Cryptococcal meningitis Psychiatric History: Reports: Addiction, Anxiety, Depression, Panic Attack, Other (See Below) Other Psychiatric History: gets mildly depressed. POST ALCOHOLIC 1998 Endocrine/Metabolic History: Reports: Diabetes, Type II, Hypoparathyroidism Hematologic History: Reports: Anemia, Blood Transfusion(s) Other Hematologic History: myelodysplastic syndrome Immunologic History: Reports: Immunosuppression, Solid Organ Transplant Other Immunologic History: kidney transplant 2001 Dermatologic History: Reports: None - Infectious Disease History Infectious Disease History: Reports: Chicken Pox, Measles - Past Surgical History Cardiovascular Surgical History: Reports: Carotid Stents GI Surgical History: Reports: Appendectomy, Cholecystectomy, Colonoscopy Male Surgical History: Reports: Other (See Below) Other Male Surgeries/Procedures: kidney transplant in 2001 Endocrine Surgical History: Reports: Other (See Below) Other Endocrine Surgeries/Procedures: had thyroid removed Musculoskeletal Surgical History: Reports: Hip Replacement Other Musculoskeletal Surgeries/Procedures:: both hips-replaced Social & Family History - Family History Family Medical History: Noncontributory Cardiac: Reports: CAD, Other (See Below) Other Cardiac Family History: Brother had bypass OBGYN: Reports: Endocrine/Metabolic: Reports: Diabetes, type II - Tobacco Use Smoking Status *Q: Former Smoker Used Tobacco, but Quit: Yes Month/Year Tobacco Last Used: 25 years ago - Caffeine Use Caffeine Use: Reports: Coffee Other Caffeine Use: 2-3 cups per day Caffeine Use Comment: 2-3 cups/day - Recreational Drug Use Recreational Drug Use: Yes Recreational Drug Type: Reports: Marijuana/Hashish Recreational Drug Use Frequency: Rarely - Living Situation & Occupation Living situation: Reports: Alone Occupation: Disabled H&P Review of Systems - Review of Systems: Review Of Systems: See Below General: Reports: Fever, Weakness, Fatigue. Denies: Chills Pulmonary: Reports: Cough. Denies: Shortness of Breath Cardiovascular: Denies: Chest Pain Gastrointestinal: Reports: Abdominal Pain (left), Diarrhea (last week), Decreased Appetite. Denies: Nausea, Vomiting Genitourinary: Reports: Frequency, Incontinence, Hematuria, Flank Pain. Denies : Dysuria Skin: Reports: Jaundice Neurological: Reports: Dizziness, Difficulty Walking, Weakness, Other (Lethargic ) Exam - Exam Exam: See Below - Vital Signs Vital Signs: Last Vital Signs Temp 36.8 C 02/20/19 14:17 Pulse 73 02/20/19 14:17 Resp 16 02/20/19 14:17 BP 125/69 02/20/19 14:17 Pulse Ox 88 L 02/20/19 14:17 Weight: 71.668 kg - Exam Quality Assessment: Supplemental Oxygen General: Alert, Cooperative, Lethargic HEENT: PERRLA. No: Scleral Icterus Neck: Supple, Trachea Midline Lungs: Decreased Breath Sounds, Crackles Cardiovascular: Regular Rate, Regular Rhythm GI/Abdominal Exam: Normal Bowel Sounds, Soft, Distended (chronic), Tender (left flank) (Male) Exam: Deferred Rectal (Males) Exam: Deferred Extremities: Pedal Edema (2+ BLE, taut) Peripheral Pulses: 2+: Radial (L), Radial (R) Skin: Warm, Dry, Intact Neuro Extensive - Mental Status: Inattentive, Slow Response to Commands - Patient Data Lab Results Last 24 hrs: Laboratory Results - last 24 hr 02/20/19 02/20/19 02/20/19 Range/Units 12:02 12:02 12:02 WBC 4.8 (4.5-12.0) X10-3/uL RBC 2.08 L (4.30-5.75) x10(6)uL Hgb 6.5 L* (13.5-17.8) g/dL Hct 18.3 L* (30.0-51.3) % MCV 88.2 (80-96) fL MCH 31.3 (27.7-33.6) pg MCHC 35.5 H (32.2-35.4) g/dL RDW 14.0 (11.5-15.5) % Plt Count 40 L (125-369) X10(3)uL MPV 8.6 (7.4-10.4) fL Add Manual Diff Yes Neutrophils % (Manual) 59 (46-82) % Band Neutrophils % 4 (0-6) % Lymphocytes % (Manual) 27 (13-37) % Monocytes % (Manual) 10 (4-12) % Sodium 133 L (135-145) mmol/L Potassium 4.7 (3.5-5.3) mmol/L Chloride 97 L (100-110) mmol/L Carbon Dioxide 30 (21-32) mmol/L BUN 38 H (7-18) mg/dL Creatinine 1.8 H (0.70-1.30) mg/dL Est Cr Clr Drug Dosing 39.88 mL/min Estimated GFR (MDRD) 39 L (>60) BUN/Creatinine Ratio 21.1 H (9-20) Glucose 266 H (80-116) mg/dL Lactic Acid 0.8 (0.4-2.2) mmol/L Calcium 7.0 L (8.6-10.2) mg/dL Magnesium 2.3 (1.8-2.5) mg/dL Total Bilirubin 0.5 (0.1-1.3) mg/dL AST 31 H D (5-25) IU/L ALT 56 H D (12-36) U/L Alkaline Phosphatase 185 H (56-112) IU/L C-Reactive Protein (0.5-0.9) mg/dL Total Protein 6.2 (6.0-8.0) g/dL Albumin 2.3 L (3.5-5.2) g/dL Globulin 3.9 g/dL Albumin/Globulin Ratio 0.6 Urine Color (YELLOW) Urine Appearance (CLEAR) Urine pH (5.0-6.5) Ur Specific [place] (1.010-1.025) Urine Protein (NEGATIVE) mg/dL Urine Glucose (UA) (NORMAL) mg/dL Urine Ketones (NEGATIVE) mg/dL Urine Occult Blood (NEGATIVE) Urine Nitrite (NEGATIVE) Urine Bilirubin (NEGATIVE) Urine Urobilinogen (NEGATIVE) mg/dL Ur Leukocyte Esterase (NEGATIVE) Urine RBC (0-5) Urine WBC (0-5) Ur Squamous Epith Cells (NS,R,O) Urine Bacteria (NS) 02/20/19 02/20/19 Range/Units 12:02 12:30 WBC (4.5-12.0) X10-3/uL RBC (4.30-5.75) x10(6)uL Hgb (13.5-17.8) g/dL Hct (30.0-51.3) % MCV (80-96) fL MCH (27.7-33.6) pg MCHC (32.2-35.4) g/dL RDW (11.5-15.5) % Plt Count (125-369) X10(3)uL MPV (7.4-10.4) fL Add Manual Diff Neutrophils % (Manual) (46-82) % Band Neutrophils % (0-6) % Lymphocytes % (Manual) (13-37) % Monocytes % (Manual) (4-12) % Sodium (135-145) mmol/L Potassium (3.5-5.3) mmol/L Chloride (100-110) mmol/L Carbon Dioxide (21-32) mmol/L BUN (7-18) mg/dL Creatinine (0.70-1.30) mg/dL Est Cr Clr Drug Dosing mL/min Estimated GFR (MDRD) (>60) BUN/Creatinine Ratio (9-20) Glucose (80-116) mg/dL Lactic Acid (0.4-2.2) mmol/L Calcium (8.6-10.2) mg/dL Magnesium (1.8-2.5) mg/dL Total Bilirubin (0.1-1.3) mg/dL AST (5-25) IU/L ALT (12-36) U/L Alkaline Phosphatase (56-112) IU/L C-Reactive Protein > 12.0 H* (0.5-0.9) mg/dL Total Protein (6.0-8.0) g/dL Albumin (3.5-5.2) g/dL Globulin g/dL Albumin/Globulin Ratio Urine Color Yellow (YELLOW) Urine Appearance Slightly cloudy (CLEAR) Urine pH 6.0 (5.0-6.5) Ur Specific [place] 1.015 (1.010-1.025) Urine Protein Trace (NEGATIVE) mg/dL Urine Glucose (UA) Normal (NORMAL) mg/dL Urine Ketones Negative (NEGATIVE) mg/dL Urine Occult Blood Large H (NEGATIVE) Urine Nitrite Negative (NEGATIVE) Urine Bilirubin Negative (NEGATIVE) Urine Urobilinogen Normal (NEGATIVE) mg/dL Ur Leukocyte Esterase Moderate H (NEGATIVE) Urine RBC 5-10 H (0-5) Urine WBC 20-30 H (0-5) Ur Squamous Epith Cells Rare (NS,R,O) Urine Bacteria Few H (NS) Result Diagrams: 02/20/19 12:02 02/20/19 12:02 *Q Meaningful Use (ADM) - VTE *Q VTE Anticoagulation Contraindications: Med/TX Not Indicated/Need - Problem List (1) Pyelonephritis SNOMED Code(s): 82037079 ICD Code: N12 - TUBULO-INTERSTITIAL NEPHRITIS, NOT SPCF ACUTE OR CHRONIC Status: Acute Current Visit: No (2) Pneumonia SNOMED Code(s): 778316292 ICD Code: J18.9 - PNEUMONIA, UNSPECIFIED ORGANISM Status: Acute Current Visit: Yes (3) Altered mental state SNOMED Code(s): 714638670 ICD Code: R41.82 - ALTERED MENTAL STATUS, UNSPECIFIED Status: Acute Current Visit: Yes (4) Weakness SNOMED Code(s): 20111893 ICD Code: R53.1 - WEAKNESS Status: Acute Current Visit: No (5) Immunocompromised state SNOMED Code(s): 517301451 ICD Code: D89.9 - DISORDER INVOLVING THE IMMUNE MECHANISM, UNSPECIFIED Status: Chronic Current Visit: Yes (6) Acute on chronic renal failure SNOMED Code(s): 233026067 ICD Code: N17.9 - ACUTE KIDNEY FAILURE, UNSPECIFIED; N18.9 - CHRONIC KIDNEY DISEASE, UNSPECIFIED Status: Acute Current Visit: No (7) Anemia with low platelet count SNOMED Code(s): 871173924, 136609999 ICD Code: D69.6 - THROMBOCYTOPENIA, UNSPECIFIED Status: Chronic Current Visit: No (8) Diabetes type 2, uncontrolled SNOMED Code(s): 432265978, 485996070 ICD Code: E11.65 - TYPE 2 DIABETES MELLITUS WITH HYPERGLYCEMIA Status: Chronic Current Visit: No Qualifiers: Glycemic state: with hyperglycemia Qualified Code(s): E11.65 - Type 2 diabetes mellitus with hyperglycemia (9) Palliative care status SNOMED Code(s): 136909469 ICD Code: Z51.5 - ENCOUNTER FOR PALLIATIVE CARE Status: Chronic Current Visit: No Problem List Initiated/Reviewed/Updated: Yes Orders Last 24hrs: Active Orders 24 hr Category Date Time Status Admission Status [Patient Status] [ADT] Routine ADT 02/20/19 13:23 Active Oxygen Therapy [RC] PRN Care 02/20/19 14:16 Active Up With Assistance [RC] ASDIRECTED Care 02/20/19 14:16 Active VTE/DVT Education [RC] Per Unit Routine Care 02/20/19 14:16 Active Vital Signs [RC] Q4H Care 02/20/19 14:16 Active CULTURE BLOOD [BC] Urgent Lab 02/20/19 12:02 Received CULTURE BLOOD [BC] Urgent Lab 02/20/19 13:15 Received CULTURE URINE [RM] Stat Lab 02/20/19 12:30 Received RED BLOOD CELLS LP [BBK] Routine Lab 02/20/19 12:02 Received TYPE AND SCREEN [BBK] Stat Lab 02/20/19 12:02 Received Sodium Chloride 0.9% [Normal Saline] 1,000 ml Med 02/20/19 12:00 Active IV ASDIRECTED Sodium Chloride 0.9% [Normal Saline] 250 ml Med 02/20/19 14:15 Active IV ASDIRECTED Sodium Chloride 0.9% [Saline Flush] Med 02/20/19 11:47 Active 10 ml FLUSH ASDIRECTED PRN cefTRIAXone [Rocephin] Med 02/21/19 14:15 Active 2 gm IVPUSH Q24H Anticoagulation Contraindications VTE [AST] Per Unit Oth 02/20/19 14:16 Ordered Routine Antiembolic Hose [OM.PC] Per Unit Routine Oth 02/20/19 14:17 Ordered Blood Culture x2 Reflex Set [OM.PC] Urgent Oth 02/20/19 11:47 Ordered Peripheral IV Insertion Adult [OM.PC] Routine Oth 02/20/19 11:47 Ordered Transfuse PRBC [Transfuse Red Blood Cells] [COMM] Oth 02/20/19 14:14 Ordered Routine Resuscitation Status Routine Resus Stat 02/20/19 14:16 Ordered Medication Orders Ceftriaxone Sodium (Rocephin) 2 gm IVPUSH Q24H LARON Sodium Chloride (Normal Saline) 1,000 mls @ 999 mls/hr IV ASDIRECTED LARON Last Infusion: 02/20/19 13:20 Dose: 125 mls/hr Admin: 02/20/19 12:40 Dose: 999 mls/hr Sodium Chloride (Normal Saline) 250 mls @ 100 mls/hr IV ASDIRECTED LARON Sodium Chloride (Saline Flush) 10 ml FLUSH ASDIRECTED PRN PRN Reason: Keep Vein Open Last Admin: 02/20/19 12:05 Dose: 10 ml Assessment/Plan Comment:: Admit for IV antibiotics, transfuse 2 units of PRBCs, IV fluids. Antipyretics. Received Rocephin in ER, next dose tomorrow. Questionable patchy pneumonia on CXR report, Rocephin will also cover. BC & UC pending. Lasix IV between units. Diabetic diet with accuchecks at meals & bed. TEDs on BLE, anticoagulation for DVT prophylaxis is contraindicated due to his low platelets at 40,000. PT consult for strengthening. FULL CODE. - Mortality Measure Prognosis:: Poor
[2019-02-20] MEDS ORDERED: FLU Vacc QS2019-20(6MOS+)/PF 60 MCG/0.5 ML SYRINGE IM ONE (17:00)
[2019-02-20] MEDS ORDERED: Ticagrelor 90 MG Tab PO SCH (21:00)
[2019-02-20] MEDS: Sodium Chloride 0.9% 1,000 ML IV SCH (22:05)
[2019-02-20] MEDS: Carvedilol 6.25 MG Tab PO SCH (22:06)
[2019-02-20] MEDS: Pantoprazole 40 MG Tab.CR PO SCH (22:08)
[2019-02-20] MEDS: Sodium Bicarbonate 650 MG Tab PO SCH (22:08)
[2019-02-20] MEDS: Gabapentin 100 MG Cap PO SCH (22:08)
[2019-02-20] MEDS: Tacrolimus 0.5 MG Cap PO SCH (22:08)
[2019-02-20] MEDS: Magnesium Oxide 400 MG Tab PO SCH (22:08)
[2019-02-21] MEDS: Sodium Chloride 0.9% 1,000 ML IV SCH (06:01)
[2019-02-21] MEDS: Pantoprazole 40 MG Tab.CR PO SCH ×2 (06:11→20:01)
[2019-02-21] MEDS: Carvedilol 6.25 MG Tab PO SCH ×2 (08:39→20:00)
[2019-02-21] MEDS: Fluconazole 100 MG Tab PO SCH (08:39)
[2019-02-21] MEDS: Magnesium Oxide 400 MG Tab PO SCH ×3 (08:39→20:01)
[2019-02-21] MEDS: predniSONE 10 MG Tab PO SCH (08:39)
[2019-02-21] MEDS: Calcitriol 0.25 MCG Cap PO SCH (08:39)
[2019-02-21] MEDS: Tacrolimus 1 MG Cap PO SCH (08:39)
[2019-02-21] MEDS: Cholecalciferol (Vitamin D3) 25 MCG Tab PO SCH (08:39)
[2019-02-21] MEDS: Sodium Bicarbonate 650 MG Tab PO SCH ×2 (08:39→20:02)
[2019-02-21] MEDS: Insulin Glargine,Human Rec. Analog 100 Units/ML 3 ML Pen SUBCUT SCH (08:44)
[2019-02-21] MEDS ORDERED: Citalopram 20 MG Tab PO SCH (09:00)
[2019-02-21] MEDS ORDERED: glipiZIDE 5 MG Tab PO SCH (09:00)
--- NOTE | 2019-02-21 09:52 | PCM.PN ---
- General Info Date of Service: 02/21/19 Admission Dx/Problem (Free Text): Feeling a little better, just achy on the right side of his body. Urinating well. Normal bowel movements. - Patient Data Vitals - Most Recent: Last Vital Signs Temp 36.4 C 02/21/19 04:00 Pulse 72 02/21/19 08:39 Resp 18 02/21/19 04:00 BP 168/80 H 02/21/19 08:39 Pulse Ox 96 02/21/19 04:00 Weight - Most Recent: 71.668 kg I&O - Last 24 Hours: Intake & Output 02/20/19 02/21/19 02/21/19 22:59 06:59 14:59 Intake Total 724 1000 171 Output Total 800 Balance -76 1000 171 Lab Results Last 24 Hours: Laboratory Results - last 24 hr 02/20/19 02/20/19 02/20/19 Range/Units 12:02 12:02 12:02 WBC 4.8 (4.5-12.0) X10-3/uL RBC 2.08 L (4.30-5.75) x10(6)uL Hgb 6.5 L* (13.5-17.8) g/dL Hct 18.3 L* (30.0-51.3) % MCV 88.2 (80-96) fL MCH 31.3 (27.7-33.6) pg MCHC 35.5 H (32.2-35.4) g/dL RDW 14.0 (11.5-15.5) % Plt Count 40 L (125-369) X10(3)uL MPV 8.6 (7.4-10.4) fL Neut % (Auto) (46-82) % Lymph % (Auto) (13-37) % [place] % (Auto) (4-12) % Eos % (Auto) (1.0-5.0) % Baso % (Auto) (0-2) % Neut # (Auto) (1.6-8.3) # Lymph # (Auto) (0.6-5.0) # [place] # (Auto) (0.0-1.3) # Eos # (Auto) (0.0-0.8) # Baso # (Auto) (0.0-0.2) # Add Manual Diff Yes Neutrophils % (Manual) 59 (46-82) % Band Neutrophils % 4 (0-6) % Lymphocytes % (Manual) 27 (13-37) % Monocytes % (Manual) 10 (4-12) % Sodium 133 L (135-145) mmol/L Potassium 4.7 (3.5-5.3) mmol/L Chloride 97 L (100-110) mmol/L Carbon Dioxide 30 (21-32) mmol/L BUN 38 H (7-18) mg/dL Creatinine 1.8 H (0.70-1.30) mg/dL Est Cr Clr Drug Dosing 39.88 mL/min Estimated GFR (MDRD) 39 L (>60) BUN/Creatinine Ratio 21.1 H (9-20) Glucose 266 H (80-116) mg/dL POC Glucose (80-116) mg/dL Lactic Acid 0.8 (0.4-2.2) mmol/L Calcium 7.0 L (8.6-10.2) mg/dL Magnesium 2.3 (1.8-2.5) mg/dL Total Bilirubin 0.5 (0.1-1.3) mg/dL AST 31 H D (5-25) IU/L ALT 56 H D (12-36) U/L Alkaline Phosphatase 185 H (56-112) IU/L C-Reactive Protein (0.5-0.9) mg/dL Total Protein 6.2 (6.0-8.0) g/dL Albumin 2.3 L (3.5-5.2) g/dL Globulin 3.9 g/dL Albumin/Globulin Ratio 0.6 Urine Color (YELLOW) Urine Appearance (CLEAR) Urine pH (5.0-6.5) Ur Specific [place] (1.010-1.025) Urine Protein (NEGATIVE) mg/dL Urine Glucose (UA) (NORMAL) mg/dL Urine Ketones (NEGATIVE) mg/dL Urine Occult Blood (NEGATIVE) Urine Nitrite (NEGATIVE) Urine Bilirubin (NEGATIVE) Urine Urobilinogen (NEGATIVE) mg/dL Ur Leukocyte Esterase (NEGATIVE) Urine RBC (0-5) Urine WBC (0-5) Ur Squamous Epith Cells (NS,R,O) Urine Bacteria (NS) Blood Type Gel Antibody Screen Crossmatch 02/20/19 02/20/19 02/20/19 Range/Units 12:02 12:02 12:30 WBC (4.5-12.0) X10-3/uL RBC (4.30-5.75) x10(6)uL Hgb (13.5-17.8) g/dL Hct (30.0-51.3) % MCV (80-96) fL MCH (27.7-33.6) pg MCHC (32.2-35.4) g/dL RDW (11.5-15.5) % Plt Count (125-369) X10(3)uL MPV (7.4-10.4) fL Neut % (Auto) (46-82) % Lymph % (Auto) (13-37) % [place] % (Auto) (4-12) % Eos % (Auto) (1.0-5.0) % Baso % (Auto) (0-2) % Neut # (Auto) (1.6-8.3) # Lymph # (Auto) (0.6-5.0) # [place] # (Auto) (0.0-1.3) # Eos # (Auto) (0.0-0.8) # Baso # (Auto) (0.0-0.2) # Add Manual Diff Neutrophils % (Manual) (46-82) % Band Neutrophils % (0-6) % Lymphocytes % (Manual) (13-37) % Monocytes % (Manual) (4-12) % Sodium (135-145) mmol/L Potassium (3.5-5.3) mmol/L Chloride (100-110) mmol/L Carbon Dioxide (21-32) mmol/L BUN (7-18) mg/dL Creatinine (0.70-1.30) mg/dL Est Cr Clr Drug Dosing mL/min Estimated GFR (MDRD) (>60) BUN/Creatinine Ratio (9-20) Glucose (80-116) mg/dL POC Glucose (80-116) mg/dL Lactic Acid (0.4-2.2) mmol/L Calcium (8.6-10.2) mg/dL Magnesium (1.8-2.5) mg/dL Total Bilirubin (0.1-1.3) mg/dL AST (5-25) IU/L ALT (12-36) U/L Alkaline Phosphatase (56-112) IU/L C-Reactive Protein > 12.0 H* (0.5-0.9) mg/dL Total Protein (6.0-8.0) g/dL Albumin (3.5-5.2) g/dL Globulin g/dL Albumin/Globulin Ratio Urine Color Yellow (YELLOW) Urine Appearance Slightly cloudy (CLEAR) Urine pH 6.0 (5.0-6.5) Ur Specific [place] 1.015 (1.010-1.025) Urine Protein Trace (NEGATIVE) mg/dL Urine Glucose (UA) Normal (NORMAL) mg/dL Urine Ketones Negative (NEGATIVE) mg/dL Urine Occult Blood Large H (NEGATIVE) Urine Nitrite Negative (NEGATIVE) Urine Bilirubin Negative (NEGATIVE) Urine Urobilinogen Normal (NEGATIVE) mg/dL Ur Leukocyte Esterase Moderate H (NEGATIVE) Urine RBC 5-10 H (0-5) Urine WBC 20-30 H (0-5) Ur Squamous Epith Cells Rare (NS,R,O) Urine Bacteria Few H (NS) Blood Type O POSITIVE Gel Antibody Screen Negative Crossmatch See Detail 02/20/19 02/20/19 02/21/19 Range/Units 17:10 23:03 06:15 WBC 4.1 L (4.5-12.0) X10-3/uL RBC 2.68 L (4.30-5.75) x10(6)uL Hgb 8.2 L (13.5-17.8) g/dL Hct 24.1 L (30.0-51.3) % MCV 89.9 (80-96) fL MCH 30.7 (27.7-33.6) pg MCHC 34.2 (32.2-35.4) g/dL RDW 13.6 (11.5-15.5) % Plt Count 34 L* (125-369) X10(3)uL MPV 9.7 (7.4-10.4) fL Neut % (Auto) 61.7 (46-82) % Lymph % (Auto) 15.9 (13-37) % [place] % (Auto) 18.2 H (4-12) % Eos % (Auto) 2 (1.0-5.0) % Baso % (Auto) 3 H (0-2) % Neut # (Auto) 2.6 (1.6-8.3) # Lymph # (Auto) 0.6 (0.6-5.0) # [place] # (Auto) 0.7 (0.0-1.3) # Eos # (Auto) 0.1 (0.0-0.8) # Baso # (Auto) 0.1 (0.0-0.2) # Add Manual Diff Neutrophils % (Manual) (46-82) % Band Neutrophils % (0-6) % Lymphocytes % (Manual) (13-37) % Monocytes % (Manual) (4-12) % Sodium (135-145) mmol/L Potassium (3.5-5.3) mmol/L Chloride (100-110) mmol/L Carbon Dioxide (21-32) mmol/L BUN (7-18) mg/dL Creatinine (0.70-1.30) mg/dL Est Cr Clr Drug Dosing mL/min Estimated GFR (MDRD) (>60) BUN/Creatinine Ratio (9-20) Glucose (80-116) mg/dL POC Glucose 250 H 269 H (80-116) mg/dL Lactic Acid (0.4-2.2) mmol/L Calcium (8.6-10.2) mg/dL Magnesium (1.8-2.5) mg/dL Total Bilirubin (0.1-1.3) mg/dL AST (5-25) IU/L ALT (12-36) U/L Alkaline Phosphatase (56-112) IU/L C-Reactive Protein (0.5-0.9) mg/dL Total Protein (6.0-8.0) g/dL Albumin (3.5-5.2) g/dL Globulin g/dL Albumin/Globulin Ratio Urine Color (YELLOW) Urine Appearance (CLEAR) Urine pH (5.0-6.5) Ur Specific [place] (1.010-1.025) Urine Protein (NEGATIVE) mg/dL Urine Glucose (UA) (NORMAL) mg/dL Urine Ketones (NEGATIVE) mg/dL Urine Occult Blood (NEGATIVE) Urine Nitrite (NEGATIVE) Urine Bilirubin (NEGATIVE) Urine Urobilinogen (NEGATIVE) mg/dL Ur Leukocyte Esterase (NEGATIVE) Urine RBC (0-5) Urine WBC (0-5) Ur Squamous Epith Cells (NS,R,O) Urine Bacteria (NS) Blood Type Gel Antibody Screen Crossmatch 02/21/19 02/21/19 Range/Units 06:15 07:28 WBC (4.5-12.0) X10-3/uL RBC (4.30-5.75) x10(6)uL Hgb (13.5-17.8) g/dL Hct (30.0-51.3) % MCV (80-96) fL MCH (27.7-33.6) pg MCHC (32.2-35.4) g/dL RDW (11.5-15.5) % Plt Count (125-369) X10(3)uL MPV (7.4-10.4) fL Neut % (Auto) (46-82) % Lymph % (Auto) (13-37) % [place] % (Auto) (4-12) % Eos % (Auto) (1.0-5.0) % Baso % (Auto) (0-2) % Neut # (Auto) (1.6-8.3) # Lymph # (Auto) (0.6-5.0) # [place] # (Auto) (0.0-1.3) # Eos # (Auto) (0.0-0.8) # Baso # (Auto) (0.0-0.2) # Add Manual Diff Neutrophils % (Manual) (46-82) % Band Neutrophils % (0-6) % Lymphocytes % (Manual) (13-37) % Monocytes % (Manual) (4-12) % Sodium 136 (135-145) mmol/L Potassium 4.5 (3.5-5.3) mmol/L Chloride 102 D (100-110) mmol/L Carbon Dioxide 28 (21-32) mmol/L BUN 32 H (7-18) mg/dL Creatinine 1.6 H (0.70-1.30) mg/dL Est Cr Clr Drug Dosing 44.86 mL/min Estimated GFR (MDRD) 44 L (>60) BUN/Creatinine Ratio 20.0 (9-20) Glucose 243 H (80-116) mg/dL POC Glucose 240 H (80-116) mg/dL Lactic Acid (0.4-2.2) mmol/L Calcium 6.6 L (8.6-10.2) mg/dL Magnesium (1.8-2.5) mg/dL Total Bilirubin (0.1-1.3) mg/dL AST (5-25) IU/L ALT (12-36) U/L Alkaline Phosphatase (56-112) IU/L C-Reactive Protein (0.5-0.9) mg/dL Total Protein (6.0-8.0) g/dL Albumin (3.5-5.2) g/dL Globulin g/dL Albumin/Globulin Ratio Urine Color (YELLOW) Urine Appearance (CLEAR) Urine pH (5.0-6.5) Ur Specific [place] (1.010-1.025) Urine Protein (NEGATIVE) mg/dL Urine Glucose (UA) (NORMAL) mg/dL Urine Ketones (NEGATIVE) mg/dL Urine Occult Blood (NEGATIVE) Urine Nitrite (NEGATIVE) Urine Bilirubin (NEGATIVE) Urine Urobilinogen (NEGATIVE) mg/dL Ur Leukocyte Esterase (NEGATIVE) Urine RBC (0-5) Urine WBC (0-5) Ur Squamous Epith Cells (NS,R,O) Urine Bacteria (NS) Blood Type Gel Antibody Screen Crossmatch Adria Results Last 24 Hours: Microbiology 02/20/19 13:15 Anaerobic Blood Culture - Preliminary Blood - Venous - Lab Draw Unidentified Organism 02/20/19 12:30 Urine Culture - Preliminary Urine, Clean Catch Gram Positive Cocci Med Orders - Current: Current Medications Acetaminophen (Tylenol) 650 mg PO Q4H PRN PRN Reason: Pain Acetaminophen/Codeine Phosphate (Tylenol With Codeine No.3 300mg/30mg) 1 tab PO Q6H PRN PRN Reason: PAIN Aspirin (Halfprin) 81 mg PO DAILY@1200 [facility] Calcitriol (Rocaltrol) 0.5 mcg PO DAILY [facility] Last Admin: 02/21/19 08:39 Dose: 0.5 mcg Carvedilol (Coreg) 6.25 mg PO BID [facility] Last Admin: 02/21/19 08:39 Dose: 6.25 mg Ceftriaxone Sodium (Rocephin) 2 gm IVPUSH Q24H [facility] Cholecalciferol (Vitamin D3) 25 mcg PO DAILY [facility] Last Admin: 02/21/19 08:39 Dose: 25 mcg Fluconazole (Diflucan) 200 mg PO DAILY [facility] Last Admin: 02/21/19 08:39 Dose: 200 mg Gabapentin (Neurontin) 100 mg PO BEDTIME [facility] Last Admin: 02/20/19 22:08 Dose: 100 mg Insulin Glargine (Lantus Solostar) 15 units SUBCUT DAILY [facility] Last Admin: 02/21/19 08:44 Dose: 15 units Magnesium Oxide (Magnesium Oxide) 400 mg PO TID [facility] Last Admin: 02/21/19 08:39 Dose: 400 mg Pantoprazole Sodium (Protonix) 40 mg PO BID@0600,2100 [facility] Last Admin: 02/21/19 06:11 Dose: 40 mg Prednisone (Prednisone) 10 mg PO DAILY [facility] Last Admin: 02/21/19 08:39 Dose: 10 mg Sodium Bicarbonate (Sodium Bicarbonate) 650 mg PO BID [facility] Last Admin: 02/21/19 08:39 Dose: 650 mg Sodium Chloride (Saline Flush) 10 ml FLUSH ASDIRECTED PRN PRN Reason: Keep Vein Open Last Admin: 02/20/19 12:05 Dose: 10 ml Tacrolimus (Prograf) 0.5 mg PO BEDTIME [facility] Last Admin: 02/20/19 22:08 Dose: 0.5 mg Tacrolimus (Prograf) 1 mg PO DAILY [facility] Last Admin: 02/21/19 08:39 Dose: 1 mg Discontinued Medications Acetaminophen (Tylenol Extra Strength) 1,000 mg PO ONETIME ONE Stop: 02/20/19 11:50 Last Admin: 02/20/19 12:15 Dose: 1,000 mg Citalopram Hydrobromide (Celexa) 20 mg PO DAILY [facility] Glipizide (Glucotrol) 5 mg PO DAILY [facility] Sodium Chloride (Normal Saline) 1,000 mls @ 999 mls/hr IV ASDIRECTED [facility] Last Infusion: 02/20/19 13:20 Dose: 125 mls/hr Ceftriaxone Sodium 1 gm/ (Sodium Chloride) 50 mls @ 200 mls/hr IV ONETIME ONE Stop: 02/20/19 13:36 Last Admin: 02/20/19 13:30 Dose: 200 mls/hr Sodium Chloride (Normal Saline) 250 mls @ 100 mls/hr IV ASDIRECTED [facility] Last Admin: 02/20/19 15:34 Dose: 100 mls/hr Sodium Chloride (Normal Saline) 1,000 mls @ 125 mls/hr IV ASDIRECTED [facility] Last Admin: 02/21/19 06:01 Dose: 125 mls/hr Influenza Virus Vaccine (Fluzone Quad [id number] Syringe) 60 mcg IM .ONCE ONE Stop: 02/20/19 17:01 - Exam General: Alert, Oriented, No Acute Distress Lungs: Normal Respiratory Effort, Decreased Breath Sounds Cardiovascular: Regular Rate, Regular Rhythm GI/Abdominal Exam: Normal Bowel Sounds, Soft, Non-Tender, No Distention Extremities: No Pedal Edema - Problem List & Annotations (1) Pyelonephritis SNOMED Code(s): 60367525 Code(s): N12 - TUBULO-INTERSTITIAL NEPHRITIS, NOT SPCF ACUTE OR CHRONIC Status: Acute Current Visit: No (2) Pneumonia SNOMED Code(s): 096053978 Code(s): J18.9 - PNEUMONIA, UNSPECIFIED ORGANISM Status: Acute Current Visit: Yes (3) Altered mental state SNOMED Code(s): 136861964 Code(s): R41.82 - ALTERED MENTAL STATUS, UNSPECIFIED Status: Acute Current Visit: Yes (4) Weakness SNOMED Code(s): 72330782 Code(s): R53.1 - WEAKNESS Status: Acute Current Visit: No (5) Immunocompromised state SNOMED Code(s): 759073695 Code(s): D89.9 - DISORDER INVOLVING THE IMMUNE MECHANISM, UNSPECIFIED Status: Chronic Current Visit: Yes (6) Acute on chronic renal failure SNOMED Code(s): 222406842 Code(s): N17.9 - ACUTE KIDNEY FAILURE, UNSPECIFIED; N18.9 - CHRONIC KIDNEY DISEASE, UNSPECIFIED Status: Acute Current Visit: No (7) Bacteremia SNOMED Code(s): 8738935 Code(s): R78.81 - BACTEREMIA Status: Acute Current Visit: Yes (8) Anemia with low platelet count SNOMED Code(s): 506573484, 052407331 Code(s): D69.6 - THROMBOCYTOPENIA, UNSPECIFIED Status: Chronic Current Visit: No (9) Diabetes type 2, uncontrolled SNOMED Code(s): 950003309, 867566900 Code(s): E11.65 - TYPE 2 DIABETES MELLITUS WITH HYPERGLYCEMIA Status: Chronic Current Visit: No Qualifiers: Glycemic state: with hyperglycemia Qualified Code(s): E11.65 - Type 2 diabetes mellitus with hyperglycemia (10) Palliative care status SNOMED Code(s): 488632360 Code(s): Z51.5 - ENCOUNTER FOR PALLIATIVE CARE Status: Chronic Current Visit: No - Problem List Review Problem List Initiated/Reviewed/Updated: Yes - My Orders Last 24 Hours: My Active Orders 02/20/19 14:14 Transfuse PRBC [Transfuse Red Blood Cells] [COMM] Routine 02/20/19 14:16 Oxygen Therapy [RC] PRN Up With Assistance [RC] ASDIRECTED Vital Signs [RC] 00,04,08,12,16,20 Anticoagulation Contraindications VTE [AST] Per Unit Routine Resuscitation Status Routine 02/20/19 14:17 Antiembolic Hose [OM.PC] Per Unit Routine 02/20/19 15:03 Blood Glucose Check, Bedside [RC] WITHMEALSANDBED OT Evaluation and Treatment [CONS] Routine PT Evaluation and Treatment [CONS] Routine 02/20/19 15:20 Influenza Vaccine Charge [RC] .DISCHARGE 02/20/19 16:30 Acetaminophen/Codeine [Tylenol with Codeine No.3 300MG/30MG] 1 tab PO Q6H PRN 02/20/19 21:00 Carvedilol [Coreg] 6.25 mg PO BID Gabapentin [Neurontin] 100 mg PO BEDTIME Magnesium Oxide 400 mg PO TID Pantoprazole [ProTONIX] 40 mg PO BID@0600,2100 Sodium Bicarbonate 650 mg PO BID Tacrolimus [Prograf] 0.5 mg PO BEDTIME 02/20/19 Dinner Consistent Carbohydrate Diet [DIET] 02/21/19 09:00 Calcitriol [Rocaltrol] 0.5 mcg PO DAILY Cholecalciferol (Vitamin D3) [Vitamin D3] 25 mcg PO DAILY Fluconazole [Diflucan] 200 mg PO DAILY Insulin Glarg,Human.Rec.Analog [LantUS Solostar] 15 units SUBCUT DAILY Tacrolimus [Prograf] 1 mg PO DAILY predniSONE 10 mg PO DAILY 02/21/19 09:42 Acetaminophen [Tylenol] 650 mg PO Q4H PRN 02/21/19 12:00 Aspirin [Halfprin] 81 mg PO DAILY@1200 02/21/19 14:15 cefTRIAXone [Rocephin] 2 gm IVPUSH Q24H - Plan Plan:: Admit for IV antibiotics, transfuse 2 units of PRBCs, IV fluids. Antipyretics. Received Rocephin in ER, next dose tomorrow. Questionable patchy pneumonia on CXR report, Rocephin will also cover. BC & UC pending. Lasix IV between units. Diabetic diet with accuchecks at meals & bed. TEDs on BLE, anticoagulation for DVT prophylaxis is contraindicated due to his low platelets at 40,000. PT consult for strengthening. FULL CODE.
[2019-02-21] MEDS: Acetaminophen 325 MG Tab PO PRN (09:54)
[2019-02-21] MEDS: Aspirin 81 MG Tab.EC PO SCH (11:41)
[2019-02-21] MEDS ORDERED: cefTRIAXone 2 GM Vial IVPUSH SCH (14:15)
[2019-02-21] MEDS: Gabapentin 100 MG Cap PO SCH (20:01)
[2019-02-21] MEDS: Tacrolimus 0.5 MG Cap PO SCH (20:01)
[2019-02-22] MEDS: Acetaminophen/Codeine 300-30 MG Tab PO PRN (02:16)
[2019-02-22] MEDS ORDERED: Labetalol 20 MG/4 ML Syringe IVPUSH ONE (04:35)
[2019-02-22] MEDS: Sodium Chloride 0.9% 10 ML Syringe FLUSH PRN ×3 (05:19→22:51)
[2019-02-22] MEDS: Pantoprazole 40 MG Tab.CR PO SCH ×2 (05:36→20:19)
[2019-02-22] MEDS: Magnesium Oxide 400 MG Tab PO SCH ×3 (08:40→20:18)
[2019-02-22] MEDS: predniSONE 10 MG Tab PO SCH (08:40)
[2019-02-22] MEDS: Calcitriol 0.25 MCG Cap PO SCH (08:40)
[2019-02-22] MEDS: Insulin Glargine,Human Rec. Analog 100 Units/ML 3 ML Pen SUBCUT SCH (08:40)
[2019-02-22] MEDS: Cholecalciferol (Vitamin D3) 25 MCG Tab PO SCH (08:40)
[2019-02-22] MEDS: Sodium Bicarbonate 650 MG Tab PO SCH ×2 (08:40→20:20)
[2019-02-22] MEDS: Fluconazole 100 MG Tab PO SCH (08:40)
[2019-02-22] MEDS: Tacrolimus 1 MG Cap PO SCH (08:40)
[2019-02-22] MEDS: Carvedilol 6.25 MG Tab PO SCH ×2 (08:40→20:19)
--- NOTE | 2019-02-22 10:49 | PCM.PN ---
- General Info Date of Service: 02/22/19 Admission Dx/Problem (Free Text): He is feeling less achy laying on the couch rather than the hospital bed. He states his right shoulder hurts to lay on it, feels sore. Some swelling of neck/ shoulder. No fevers or chills. Belly feels better. - Patient Data Vitals - Most Recent: Last Vital Signs Temp 36.6 C 02/22/19 07:40 Pulse 61 02/22/19 08:40 Resp 18 02/22/19 07:40 BP 143/80 H 02/22/19 08:40 Pulse Ox 96 02/22/19 07:40 Weight - Most Recent: 71.668 kg Lab Results Last 24 Hours: Laboratory Results - last 24 hr 02/21/19 02/21/19 02/21/19 Range/Units 11:41 18:17 21:21 Sodium (135-145) mmol/L Potassium (3.5-5.3) mmol/L Chloride (100-110) mmol/L Carbon Dioxide (21-32) mmol/L BUN (7-18) mg/dL Creatinine (0.70-1.30) mg/dL Est Cr Clr Drug Dosing mL/min Estimated GFR (MDRD) (>60) BUN/Creatinine Ratio (9-20) Glucose (80-116) mg/dL POC Glucose 155 H D 216 H 308 H D (80-116) mg/dL Calcium (8.6-10.2) mg/dL Total Bilirubin (0.1-1.3) mg/dL AST (5-25) IU/L ALT (12-36) U/L Alkaline Phosphatase (56-112) IU/L Total Protein (6.0-8.0) g/dL Albumin (3.5-5.2) g/dL Globulin g/dL Albumin/Globulin Ratio 02/22/19 Range/Units 06:35 Sodium 138 (135-145) mmol/L Potassium 4.6 (3.5-5.3) mmol/L Chloride 99 L (100-110) mmol/L Carbon Dioxide 31 (21-32) mmol/L BUN 27 H (7-18) mg/dL Creatinine 1.6 H (0.70-1.30) mg/dL Est Cr Clr Drug Dosing 44.86 mL/min Estimated GFR (MDRD) 44 L (>60) BUN/Creatinine Ratio 16.9 (9-20) Glucose 111 D (80-116) mg/dL POC Glucose (80-116) mg/dL Calcium 7.0 L (8.6-10.2) mg/dL Total Bilirubin 0.3 (0.1-1.3) mg/dL AST 30 H (5-25) IU/L ALT 53 H (12-36) U/L Alkaline Phosphatase 159 H (56-112) IU/L Total Protein 6.8 (6.0-8.0) g/dL Albumin 2.4 L (3.5-5.2) g/dL Globulin 4.4 g/dL Albumin/Globulin Ratio 0.6 Yash Results Last 24 Hours: Microbiology 02/20/19 13:15 Aerobic Blood Culture - Preliminary Blood - Venous - Lab Draw NO GROWTH AFTER 1 DAY Anaerobic Blood Culture - Preliminary Unidentified Organism 02/20/19 12:30 Urine Culture - Final Urine, Clean Catch (Mrsa) Staphylococcus Aureus 02/20/19 12:02 Aerobic Blood Culture - Preliminary Blood - Venous NO GROWTH AFTER 1 DAY Anaerobic Blood Culture - Preliminary NO GROWTH AFTER 1 DAY Med Orders - Current: Current Medications Acetaminophen (Tylenol) 650 mg PO Q4H PRN PRN Reason: Pain Last Admin: 02/21/19 09:54 Dose: 650 mg Acetaminophen/Codeine Phosphate (Tylenol With Codeine No.3 300mg/30mg) 1 tab PO Q6H PRN PRN Reason: PAIN Last Admin: 02/22/19 02:16 Dose: 1 tab Aspirin (Halfprin) 81 mg PO DAILY@1200 [facility] Last Admin: 02/21/19 11:41 Dose: 81 mg Calcitriol (Rocaltrol) 0.5 mcg PO DAILY [facility] Last Admin: 02/22/19 08:40 Dose: 0.5 mcg Carvedilol (Coreg) 6.25 mg PO BID [facility] Last Admin: 02/22/19 08:40 Dose: 6.25 mg Cholecalciferol (Vitamin D3) 25 mcg PO DAILY [facility] Last Admin: 02/22/19 08:40 Dose: 25 mcg Fluconazole (Diflucan) 200 mg PO DAILY [facility] Last Admin: 02/22/19 08:40 Dose: 200 mg Gabapentin (Neurontin) 100 mg PO BEDTIME [facility] Last Admin: 02/21/19 20:01 Dose: 100 mg Doxycycline Hyclate 100 mg/ (Sodium Chloride) 100 mls @ 100 mls/hr IV Q12HR [facility] Insulin Glargine (Lantus Solostar) 15 units SUBCUT DAILY [facility] Last Admin: 02/22/19 08:40 Dose: 15 units Magnesium Oxide (Magnesium Oxide) 400 mg PO TID [facility] Last Admin: 02/22/19 08:40 Dose: 400 mg Pantoprazole Sodium (Protonix) 40 mg PO BID@0600,2100 [facility] Last Admin: 02/22/19 05:36 Dose: 40 mg Prednisone (Prednisone) 10 mg PO DAILY [facility] Last Admin: 02/22/19 08:40 Dose: 10 mg Sodium Bicarbonate (Sodium Bicarbonate) 650 mg PO BID [facility] Last Admin: 02/22/19 08:40 Dose: 650 mg Sodium Chloride (Saline Flush) 10 ml FLUSH ASDIRECTED PRN PRN Reason: Keep Vein Open Last Admin: 02/22/19 05:19 Dose: 10 ml Tacrolimus (Prograf) 0.5 mg PO BEDTIME [facility] Last Admin: 02/21/19 20:01 Dose: 0.5 mg Tacrolimus (Prograf) 1 mg PO DAILY [facility] Last Admin: 02/22/19 08:40 Dose: 1 mg Trimethoprim/Sulfamethoxazole (Septra Ds) 1 tab PO BID [facility] Discontinued Medications Acetaminophen (Tylenol Extra Strength) 1,000 mg PO ONETIME ONE Stop: 02/20/19 11:50 Last Admin: 02/20/19 12:15 Dose: 1,000 mg Ceftriaxone Sodium (Rocephin) 2 gm IVPUSH Q24H [facility] Last Admin: 02/21/19 14:04 Dose: 2 gm Citalopram Hydrobromide (Celexa) 20 mg PO DAILY [facility] Glipizide (Glucotrol) 5 mg PO DAILY [facility] Sodium Chloride (Normal Saline) 1,000 mls @ 999 mls/hr IV ASDIRECTED [facility] Last Infusion: 02/20/19 13:20 Dose: 125 mls/hr Ceftriaxone Sodium 1 gm/ (Sodium Chloride) 50 mls @ 200 mls/hr IV ONETIME ONE Stop: 02/20/19 13:36 Last Admin: 02/20/19 13:30 Dose: 200 mls/hr Sodium Chloride (Normal Saline) 250 mls @ 100 mls/hr IV ASDIRECTED [facility] Last Admin: 02/20/19 15:34 Dose: 100 mls/hr Sodium Chloride (Normal Saline) 1,000 mls @ 125 mls/hr IV ASDIRECTED [facility] Last Admin: 02/21/19 06:01 Dose: 125 mls/hr Influenza Virus Vaccine (Fluzone Quad Syringe) 60 mcg IM .ONCE ONE Stop: 02/20/19 17:01 Labetalol HCl (Normodyne) 10 mg IVPUSH ONETIME ONE; Protocol Stop: 02/22/19 04:36 Last Admin: 02/22/19 05:18 Dose: 10 mg - Exam General: Alert, Oriented, Cooperative Lungs: Clear to Auscultation, Normal Respiratory Effort Cardiovascular: Regular Rate, Regular Rhythm GI/Abdominal Exam: Normal Bowel Sounds, Soft, Non-Tender, Tender (Left flank) Extremities: Arm Pain, Other (TTP along left clavicle, supraclavicular and left neck; moderate swelling noted left neck along clavicle. No erythema or warmth.) - Problem List & Annotations (1) Pyelonephritis SNOMED Code(s): 83449724 Code(s): N12 - TUBULO-INTERSTITIAL NEPHRITIS, NOT SPCF ACUTE OR CHRONIC Status: Acute Current Visit: No (2) Pneumonia SNOMED Code(s): 334417704 Code(s): J18.9 - PNEUMONIA, UNSPECIFIED ORGANISM Status: Acute Current Visit: Yes (3) Altered mental state SNOMED Code(s): 585313311 Code(s): R41.82 - ALTERED MENTAL STATUS, UNSPECIFIED Status: Acute Current Visit: Yes (4) Weakness SNOMED Code(s): 65422160 Code(s): R53.1 - WEAKNESS Status: Acute Current Visit: No (5) Immunocompromised state SNOMED Code(s): 433823707 Code(s): D89.9 - DISORDER INVOLVING THE IMMUNE MECHANISM, UNSPECIFIED Status: Chronic Current Visit: Yes (6) Acute on chronic renal failure SNOMED Code(s): 162389558 Code(s): N17.9 - ACUTE KIDNEY FAILURE, UNSPECIFIED; N18.9 - CHRONIC KIDNEY DISEASE, UNSPECIFIED Status: Acute Current Visit: No (7) Bacteremia SNOMED Code(s): 0027908 Code(s): R78.81 - BACTEREMIA Status: Acute Current Visit: Yes (8) Anemia with low platelet count SNOMED Code(s): 534127335, 363270325 Code(s): D69.6 - THROMBOCYTOPENIA, UNSPECIFIED Status: Chronic Current Visit: No (9) Diabetes type 2, uncontrolled SNOMED Code(s): 791630312, 567565833 Code(s): E11.65 - TYPE 2 DIABETES MELLITUS WITH HYPERGLYCEMIA Status: Chronic Current Visit: No Qualifiers: Glycemic state: with hyperglycemia Qualified Code(s): E11.65 - Type 2 diabetes mellitus with hyperglycemia (10) Palliative care status SNOMED Code(s): 898733474 Code(s): Z51.5 - ENCOUNTER FOR PALLIATIVE CARE Status: Chronic Current Visit: No (11) Neck swelling SNOMED Code(s): 450045304 Code(s): R22.1 - LOCALIZED SWELLING, MASS AND LUMP, NECK Status: Acute Current Visit: Yes - Problem List Review Problem List Initiated/Reviewed/Updated: Yes - My Orders Last 24 Hours: My Active Orders 02/21/19 09:42 Acetaminophen [Tylenol] 650 mg PO Q4H PRN 02/21/19 12:00 Aspirin [Halfprin] 81 mg PO DAILY@1200 02/22/19 10:45 Doxycycline [Vibramycin] 100 mg Sodium Chloride 0.9% [Normal Saline] 100 ml IV Q12HR 02/22/19 21:00 Sulfamethoxazole/Trimethoprim [Septra DS] 1 tab PO BID - Plan Plan:: MRSA came back in his urine, preliminary on blood culture was that it was same as urine though report Anaerobic bottle was positive with unidentified organism. Sensitive to ciprfloxacin, bactrim, and tetracyclines: antibiotics changed to Doxycycline IV and Bactrim oral as Vancomycin yash was equal to 1 and with his kidney history want to avoid nephrotoxic drugs if at all possible. Complaining of right shoulder pain, no known injury, has swelling along neck and clavicle. Since he has bacteremia will get ultrasound to rule out blood clot. He is not on anticoagulation for DVT as his platelets are chronically low between [id number]. Contact precautions.
[2019-02-22] MEDS: Aspirin 81 MG Tab.EC PO SCH (11:28)
[2019-02-22] MEDS: Doxycycline 100 MG in Sodium Chloride 0.9% 100 ML IV SCH ×2 (11:53→22:52)
[2019-02-22] MEDS ORDERED: traMADol 50 MG Tab PO PRN (12:02)
[2019-02-22] MEDS ORDERED: Morphine 2 MG/ML Syringe IVPUSH PRN (12:03)
[2019-02-22] MEDS ORDERED: Sulfamethoxazole/Trimethoprim 800-160 MG Tab PO ONE (13:45)
[2019-02-22] MEDS: Tacrolimus 0.5 MG Cap PO SCH (20:20)
[2019-02-22] MEDS: Gabapentin 100 MG Cap PO SCH (20:22)
[2019-02-22] MEDS: Sulfamethoxazole/Trimethoprim 800-160 MG Tab PO SCH (20:32)
[2019-02-22] MEDS: Acetaminophen 325 MG Tab PO PRN (23:05)
[2019-02-23] MEDS: Acetaminophen/Codeine 300-30 MG Tab PO PRN ×2 (05:28→14:52)
[2019-02-23] MEDS: Pantoprazole 40 MG Tab.CR PO SCH ×2 (05:37→21:04)
[2019-02-23] MEDS: Calcitriol 0.25 MCG Cap PO SCH (08:27)
[2019-02-23] MEDS: Cholecalciferol (Vitamin D3) 25 MCG Tab PO SCH (08:28)
[2019-02-23] MEDS: Fluconazole 100 MG Tab PO SCH (08:28)
[2019-02-23] MEDS: predniSONE 10 MG Tab PO SCH (08:28)
[2019-02-23] MEDS: Magnesium Oxide 400 MG Tab PO SCH ×3 (08:28→21:04)
[2019-02-23] MEDS: Tacrolimus 1 MG Cap PO SCH (08:29)
[2019-02-23] MEDS: Sodium Bicarbonate 650 MG Tab PO SCH ×2 (08:30→21:04)
[2019-02-23] MEDS: Sulfamethoxazole/Trimethoprim 800-160 MG Tab PO SCH ×2 (08:40→21:04)
[2019-02-23] MEDS: Carvedilol 6.25 MG Tab PO SCH ×2 (08:42→21:04)
[2019-02-23] MEDS: Insulin Glargine,Human Rec. Analog 100 Units/ML 3 ML Pen SUBCUT SCH (08:44)
[2019-02-23] MEDS: Doxycycline 100 MG in Sodium Chloride 0.9% 100 ML IV SCH ×2 (13:19→22:25)
[2019-02-23] MEDS: Aspirin 81 MG Tab.EC PO SCH (13:19)
[2019-02-23] MEDS: Sodium Chloride 0.9% 10 ML Syringe FLUSH PRN ×2 (13:26→22:27)
--- NOTE | 2019-02-23 14:02 | PCM.PN ---
- General Info Date of Service: 02/23/19 Admission Dx/Problem (Free Text): Patient still having right shoulder pain, hip achy but states that usual. No diarrhea. No nausea or vomiting. Urinating fine. Blood cultures came back with MRSA in 1 bottle. Repeat cultures done today. - Patient Data Vitals - Most Recent: Last Vital Signs Temp 36.8 C 02/23/19 08:00 Pulse 73 02/23/19 08:42 Resp 14 02/23/19 08:00 BP 157/83 H 02/23/19 08:42 Pulse Ox 95 02/23/19 08:00 Weight - Most Recent: 71.668 kg Lab Results Last 24 Hours: Laboratory Results - last 24 hr 02/20/19 02/22/19 02/22/19 Range/Units 12:02 17:07 20:34 WBC (4.5-12.0) X10-3/uL RBC (4.30-5.75) x10(6)uL Hgb (13.5-17.8) g/dL Hct (30.0-51.3) % MCV (80-96) fL MCH (27.7-33.6) pg MCHC (32.2-35.4) g/dL RDW (11.5-15.5) % Plt Count (125-369) X10(3)uL MPV (7.4-10.4) fL Add Manual Diff Neutrophils % (Manual) (46-82) % Lymphocytes % (Manual) (13-37) % Monocytes % (Manual) (4-12) % Sodium (135-145) mmol/L Potassium (3.5-5.3) mmol/L Chloride (100-110) mmol/L Carbon Dioxide (21-32) mmol/L BUN (7-18) mg/dL Creatinine (0.70-1.30) mg/dL Est Cr Clr Drug Dosing mL/min Estimated GFR (MDRD) (>60) BUN/Creatinine Ratio (9-20) Glucose (80-116) mg/dL POC Glucose 260 H D 335 H (80-116) mg/dL Calcium (8.6-10.2) mg/dL Crossmatch See Detail 02/22/19 02/23/19 02/23/19 Range/Units 22:13 06:55 06:55 WBC 4.9 (4.5-12.0) X10-3/uL RBC 2.70 L (4.30-5.75) x10(6)uL Hgb 8.6 L (13.5-17.8) g/dL Hct 24.2 L (30.0-51.3) % MCV 89.4 (80-96) fL MCH 31.8 (27.7-33.6) pg MCHC 35.5 H (32.2-35.4) g/dL RDW 13.5 (11.5-15.5) % Plt Count 38 L (125-369) X10(3)uL MPV 9.3 (7.4-10.4) fL Add Manual Diff Yes Neutrophils % (Manual) 64 (46-82) % Lymphocytes % (Manual) 20 (13-37) % Monocytes % (Manual) 16 H (4-12) % Sodium 132 L (135-145) mmol/L Potassium 4.2 (3.5-5.3) mmol/L Chloride 95 L (100-110) mmol/L Carbon Dioxide 29 (21-32) mmol/L BUN 30 H (7-18) mg/dL Creatinine 1.7 H (0.70-1.30) mg/dL Est Cr Clr Drug Dosing 42.22 mL/min Estimated GFR (MDRD) 41 L (>60) BUN/Creatinine Ratio 17.6 (9-20) Glucose 184 H (80-116) mg/dL POC Glucose 293 H (80-116) mg/dL Calcium 6.6 L (8.6-10.2) mg/dL Crossmatch 02/23/19 02/23/19 Range/Units 08:44 13:30 WBC (4.5-12.0) X10-3/uL RBC (4.30-5.75) x10(6)uL Hgb (13.5-17.8) g/dL Hct (30.0-51.3) % MCV (80-96) fL MCH (27.7-33.6) pg MCHC (32.2-35.4) g/dL RDW (11.5-15.5) % Plt Count (125-369) X10(3)uL MPV (7.4-10.4) fL Add Manual Diff Neutrophils % (Manual) (46-82) % Lymphocytes % (Manual) (13-37) % Monocytes % (Manual) (4-12) % Sodium (135-145) mmol/L Potassium (3.5-5.3) mmol/L Chloride (100-110) mmol/L Carbon Dioxide (21-32) mmol/L BUN (7-18) mg/dL Creatinine (0.70-1.30) mg/dL Est Cr Clr Drug Dosing mL/min Estimated GFR (MDRD) (>60) BUN/Creatinine Ratio (9-20) Glucose (80-116) mg/dL POC Glucose 161 H D 286 H D (80-116) mg/dL Calcium (8.6-10.2) mg/dL Crossmatch Adria Results Last 24 Hours: Microbiology 02/20/19 13:15 Aerobic Blood Culture - Preliminary Blood - Venous - Lab Draw NO GROWTH AFTER 3 DAYS Anaerobic Blood Culture - Final (Mrsa) Staphylococcus Aureus 02/20/19 12:02 Aerobic Blood Culture - Preliminary Blood - Venous NO GROWTH AFTER 3 DAYS Anaerobic Blood Culture - Preliminary NO GROWTH AFTER 3 DAYS Med Orders - Current: Current Medications Acetaminophen (Tylenol) 650 mg PO Q4H PRN PRN Reason: Pain Last Admin: 02/22/19 23:05 Dose: 650 mg Acetaminophen/Codeine Phosphate (Tylenol With Codeine No.3 300mg/30mg) 1 tab PO Q6H PRN PRN Reason: PAIN Last Admin: 02/23/19 05:28 Dose: 1 tab Aspirin (Halfprin) 81 mg PO DAILY@1200 [facility] Last Admin: 02/23/19 13:19 Dose: 81 mg Calcitriol (Rocaltrol) 0.5 mcg PO DAILY [facility] Last Admin: 02/23/19 08:27 Dose: 0.5 mcg Carvedilol (Coreg) 6.25 mg PO BID [facility] Last Admin: 02/23/19 08:42 Dose: 6.25 mg Cholecalciferol (Vitamin D3) 25 mcg PO DAILY [facility] Last Admin: 02/23/19 08:28 Dose: 25 mcg Fluconazole (Diflucan) 200 mg PO DAILY [facility] Last Admin: 02/23/19 08:28 Dose: 200 mg Gabapentin (Neurontin) 100 mg PO BEDTIME [facility] Last Admin: 02/22/19 20:22 Dose: 100 mg Doxycycline Hyclate 100 mg/ (Sodium Chloride) 100 mls @ 100 mls/hr IV Q12H [facility] Last Admin: 02/23/19 13:19 Dose: 100 mls/hr Insulin Glargine (Lantus Solostar) 15 units SUBCUT DAILY [facility] Last Admin: 02/23/19 08:44 Dose: 15 units Magnesium Oxide (Magnesium Oxide) 400 mg PO TID [facility] Last Admin: 02/23/19 13:28 Dose: 400 mg Morphine Sulfate (Morphine) 2 mg IVPUSH Q4H PRN PRN Reason: Pain (severe 7-10) Last Admin: 02/22/19 12:54 Dose: 2 mg Pantoprazole Sodium (Protonix) 40 mg PO BID@0600,2100 [facility] Last Admin: 02/23/19 05:37 Dose: 40 mg Prednisone (Prednisone) 10 mg PO DAILY [facility] Last Admin: 02/23/19 08:28 Dose: 10 mg Sodium Bicarbonate (Sodium Bicarbonate) 650 mg PO BID [facility] Last Admin: 02/23/19 08:30 Dose: 650 mg Sodium Chloride (Saline Flush) 10 ml FLUSH ASDIRECTED PRN PRN Reason: Keep Vein Open Last Admin: 02/23/19 13:26 Dose: 10 ml Tacrolimus (Prograf) 0.5 mg PO BEDTIME [facility] Last Admin: 02/22/19 20:20 Dose: 0.5 mg Tacrolimus (Prograf) 1 mg PO DAILY [facility] Last Admin: 02/23/19 08:29 Dose: 1 mg Tramadol HCl (Ultram) 50 mg PO Q8H PRN PRN Reason: Pain (moderate 4-6) Trimethoprim/Sulfamethoxazole (Septra Ds) 1 tab PO BID [facility] Last Admin: 02/23/19 08:40 Dose: 1 tab Discontinued Medications Acetaminophen (Tylenol Extra Strength) 1,000 mg PO ONETIME ONE Stop: 02/20/19 11:50 Last Admin: 02/20/19 12:15 Dose: 1,000 mg Ceftriaxone Sodium (Rocephin) 2 gm IVPUSH Q24H [facility] Last Admin: 02/21/19 14:04 Dose: 2 gm Citalopram Hydrobromide (Celexa) 20 mg PO DAILY [facility] Glipizide (Glucotrol) 5 mg PO DAILY [facility] Sodium Chloride (Normal Saline) 1,000 mls @ 999 mls/hr IV ASDIRECTED [facility] Last Infusion: 02/20/19 13:20 Dose: 125 mls/hr Ceftriaxone Sodium 1 gm/ (Sodium Chloride) 50 mls @ 200 mls/hr IV ONETIME ONE Stop: 02/20/19 13:36 Last Admin: 02/20/19 13:30 Dose: 200 mls/hr Sodium Chloride (Normal Saline) 250 mls @ 100 mls/hr IV ASDIRECTED [facility] Last Admin: 02/20/19 15:34 Dose: 100 mls/hr Sodium Chloride (Normal Saline) 1,000 mls @ 125 mls/hr IV ASDIRECTED [facility] Last Admin: 02/21/19 06:01 Dose: 125 mls/hr Influenza Virus Vaccine (Fluzone Quad Syringe) 60 mcg IM .ONCE ONE Stop: 02/20/19 17:01 Labetalol HCl (Normodyne) 10 mg IVPUSH ONETIME ONE; Protocol Stop: 02/22/19 04:36 Last Admin: 02/22/19 05:18 Dose: 10 mg Trimethoprim/Sulfamethoxazole (Septra Ds) 1 tab PO ONETIME ONE Stop: 02/22/19 13:46 Last Admin: 02/22/19 13:53 Dose: 1 tab - Exam General: Alert, Oriented, Cooperative, No Acute Distress Lungs: Clear to Auscultation, Normal Respiratory Effort Cardiovascular: Regular Rate, Regular Rhythm GI/Abdominal Exam: Normal Bowel Sounds, Soft, Non-Tender, No Distention - Problem List & Annotations (1) Pyelonephritis SNOMED Code(s): 16013436 Code(s): N12 - TUBULO-INTERSTITIAL NEPHRITIS, NOT SPCF ACUTE OR CHRONIC Status: Acute Current Visit: No (2) Pneumonia SNOMED Code(s): 608273128 Code(s): J18.9 - PNEUMONIA, UNSPECIFIED ORGANISM Status: Acute Current Visit: Yes (3) Altered mental state SNOMED Code(s): 789058844 Code(s): R41.82 - ALTERED MENTAL STATUS, UNSPECIFIED Status: Resolved Current Visit: Yes (4) Weakness SNOMED Code(s): 83517234 Code(s): R53.1 - WEAKNESS Status: Resolved Current Visit: No (5) Immunocompromised state SNOMED Code(s): 231704261 Code(s): D89.9 - DISORDER INVOLVING THE IMMUNE MECHANISM, UNSPECIFIED Status: Chronic Current Visit: Yes (6) Acute on chronic renal failure SNOMED Code(s): 591214571 Code(s): N17.9 - ACUTE KIDNEY FAILURE, UNSPECIFIED; N18.9 - CHRONIC KIDNEY DISEASE, UNSPECIFIED Status: Acute Current Visit: No (7) Bacteremia SNOMED Code(s): 7393664 Code(s): R78.81 - BACTEREMIA Status: Acute Current Visit: Yes (8) Anemia with low platelet count SNOMED Code(s): 415239851, 964098407 Code(s): D69.6 - THROMBOCYTOPENIA, UNSPECIFIED Status: Chronic Current Visit: No (9) Diabetes type 2, uncontrolled SNOMED Code(s): 793206619, 916424092 Code(s): E11.65 - TYPE 2 DIABETES MELLITUS WITH HYPERGLYCEMIA Status: Chronic Current Visit: No Qualifiers: Glycemic state: with hyperglycemia Qualified Code(s): E11.65 - Type 2 diabetes mellitus with hyperglycemia (10) Palliative care status SNOMED Code(s): 873776919 Code(s): Z51.5 - ENCOUNTER FOR PALLIATIVE CARE Status: Chronic Current Visit: No (11) Neck swelling SNOMED Code(s): 466414680 Code(s): R22.1 - LOCALIZED SWELLING, MASS AND LUMP, NECK Status: Acute Current Visit: Yes - Problem List Review Problem List Initiated/Reviewed/Updated: Yes - My Orders Last 24 Hours: My Active Orders 02/22/19 16:59 Blood Culture x2 Reflex Set [OM.PC] Urgent 02/22/19 21:00 Sulfamethoxazole/Trimethoprim [Septra DS] 1 tab PO BID 02/23/19 06:55 CULTURE BLOOD [BC] Routine 02/23/19 07:00 CULTURE BLOOD [BC] Routine 02/23/19 12:39 VL Duplex Upr Ext Veins Ltd Rt [US] Routine - Plan Plan:: MRSA came back in his blood, had switched to Doxycycline and Bactrim due to sensitivities and 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 He is still having neck, upper shoulder pain, they were able to get Doppler ultrasound today which was negative. Platelets improved. If he has no growth on new blood cultures we would be able to switch Doxycycline to oral and would be able to be discharged. Hemoglobin is remaining stable.
[2019-02-23] MEDS: Acetaminophen 325 MG Tab PO PRN (14:38)
[2019-02-23] MEDS: Tacrolimus 0.5 MG Cap PO SCH (21:04)
[2019-02-23] MEDS: Gabapentin 100 MG Cap PO SCH (21:33)
[2019-02-24] MEDS: Acetaminophen/Codeine 300-30 MG Tab PO PRN (04:25)
[2019-02-24] MEDS: Pantoprazole 40 MG Tab.CR PO SCH (04:59)
[2019-02-24 08:16] VITALS: BP 141/81
[2019-02-24] MEDS: Carvedilol 6.25 MG Tab PO SCH (08:32)
[2019-02-24] MEDS: Fluconazole 100 MG Tab PO SCH (08:33)
[2019-02-24] MEDS: predniSONE 10 MG Tab PO SCH (08:34)
[2019-02-24] MEDS: Magnesium Oxide 400 MG Tab PO SCH (08:34)
[2019-02-24] MEDS: Tacrolimus 1 MG Cap PO SCH (08:35)
[2019-02-24] MEDS: Calcitriol 0.25 MCG Cap PO SCH (08:36)
[2019-02-24] MEDS: Sulfamethoxazole/Trimethoprim 800-160 MG Tab PO SCH (08:36)
[2019-02-24] MEDS: Cholecalciferol (Vitamin D3) 25 MCG Tab PO SCH (08:37)
[2019-02-24] MEDS: Sodium Bicarbonate 650 MG Tab PO SCH (08:37)
[2019-02-24 08:41] VITALS: PULSE 69
[2019-02-24] MEDS: Insulin Glargine,Human Rec. Analog 100 Units/ML 3 ML Pen SUBCUT SCH (08:43)
[2019-02-24] MEDS ORDERED: Perform Pain Reliever Gel 89 ML Tube TP PRN ×2 (09:07→09:15)
[2019-02-24] MEDS ORDERED: Bisacodyl 5 MG Tab PO PRN (09:10)
[2019-02-24] MEDS ORDERED: FLU Vacc QS2019-20(6MOS+)/PF 60 MCG/0.5 ML SYRINGE IM ONE (11:00)
[2019-02-24] MEDS ORDERED: Doxycycline 100 MG Tab PO SCH (11:00)
--- NOTE | 2019-02-24 11:51 | PCM.DCSUM1 ---
Discharge Summary - Hospital Course HPI Initial Comments: 58-year-old male who presented to the emergency department with urinary frequency and incontinence over the last few days. He is achy, dizzy, weakness, more lethargic than normal and is a poor historian today which is not his normal. He states he gets jaundice when he needs transfusion. No reported fever at home but he did have a temperature of 38.3C in ER, came down after Tylenol given. He reports that he has been drinking water well. No nausea or vomiting. Cough, chest congestion. No difficulty breathing. History limited due to mental status. Received Rocephin in ER. He is immunosuppressed, CXR shows possibly pneumonia and UA is positive for infection. BC and UC done in ER. Diagnosis: Stroke: No - Discharge Data Discharge Date: 02/24/19 Discharge Disposition: Home, Self-Care 01 Condition: Good - Referral to Home Health Primary Care Physician: Du Andersen MD - Discharge Diagnosis/Problem(s) (1) Pyelonephritis SNOMED Code(s): 88523510 ICD Code: N12 - TUBULO-INTERSTITIAL NEPHRITIS, NOT SPCF ACUTE OR CHRONIC Status: Acute Current Visit: No Problem Details: improving (2) Pneumonia SNOMED Code(s): 979526614 ICD Code: J18.9 - PNEUMONIA, UNSPECIFIED ORGANISM Status: Acute Current Visit: Yes (3) Altered mental state SNOMED Code(s): 430203373 ICD Code: R41.82 - ALTERED MENTAL STATUS, UNSPECIFIED Status: Resolved Current Visit: Yes (4) Weakness SNOMED Code(s): 62051738 ICD Code: R53.1 - WEAKNESS Status: Resolved Current Visit: No (5) Immunocompromised state SNOMED Code(s): 526236767 ICD Code: D89.9 - DISORDER INVOLVING THE IMMUNE MECHANISM, UNSPECIFIED Status: Chronic Current Visit: Yes (6) Acute on chronic renal failure SNOMED Code(s): 113819805 ICD Code: N17.9 - ACUTE KIDNEY FAILURE, UNSPECIFIED; N18.9 - CHRONIC KIDNEY DISEASE, UNSPECIFIED Status: Chronic Current Visit: No (7) Bacteremia SNOMED Code(s): 1316362 ICD Code: R78.81 - BACTEREMIA Status: Resolved Current Visit: Yes (8) Anemia with low platelet count SNOMED Code(s): 271556314, 741043463 ICD Code: D69.6 - THROMBOCYTOPENIA, UNSPECIFIED Status: Chronic Current Visit: No Problem Details: Hgb 8.3 (9) Diabetes type 2, uncontrolled SNOMED Code(s): 867566768, 709720656 ICD Code: E11.65 - TYPE 2 DIABETES MELLITUS WITH HYPERGLYCEMIA Status: Chronic Current Visit: No Qualifiers: Glycemic state: with hyperglycemia Qualified Code(s): E11.65 - Type 2 diabetes mellitus with hyperglycemia (10) Palliative care status SNOMED Code(s): 444878373 ICD Code: Z51.5 - ENCOUNTER FOR PALLIATIVE CARE Status: Chronic Current Visit: No (11) Neck swelling SNOMED Code(s): 180104678 ICD Code: R22.1 - LOCALIZED SWELLING, MASS AND LUMP, NECK Status: Acute Current Visit: Yes Problem Details: Ultrasound negative for DVT - Patient Summary/Data Consults: Consultations 02/20/19 15:03 OT Evaluation and Treatment [CONS] Routine Please Evaluate and Treat. OT Reason for Consult: Strengthening This query below is only for informational purposes and is not editable. Admission Diagnosis/Problem: Pyelonephritis PT Evaluation and Treatment [CONS] Routine Please Evaluate and Treat. PT Reason for Consult: Strengthening This query below is only for informational purposes and is not editable. Admission Diagnosis/Problem: Pyelonephritis Hospital Course: Patient was admitted with pyelonephritis, possible pneumonia and early sepsis, he was started on Rocephin as did not have to adjust for his kidney function and protect his transplanted kidney. Urine culture came back positive for MRSA susceptible to tetracyclines and Bactrim, vancomycin was MARGARET 1 and due to his transplanted kidney wanted to avoid so switched to Doxycycline 100 mg IV and Bactrim DS bid. Blood culture was positive initially with unidentified organism but came back positive for MRSA with same susceptibilities. Repeated blood cultures which were negative at 24 hours. Patient weakness improved. PT evaluated and did not require services or home health. He was complaining of right neck/shoulder pain, Doppler ultrasound was done which was negative for DVT. Preform pain cream was started along with alternating ice/heat to right neck/shoulder as patient remembered that he was doing some lifting at home and thinks he might have strained it. Switched to oral Doxycycline prior to discharged. - Patient Instructions Diet: Diabetic Diet Activity: As Tolerated Showering/Bathing: May Shower Notify Provider of: Fever, Increased Pain, Nausea and/or Vomiting Other/Special Instructions: Follow up with Dr Andersen in 1 week. - Discharge Plan *PRESCRIPTION DRUG MONITORING PROGRAM REVIEWED*: No *COPY OF PRESCRIPTION DRUG MONITORING REPORT IN PATIENT JUNI: No Prescriptions/Med Rec: Doxycycline Hyclate 100 mg PO BID 5 Days #10 tablet Sulfamethoxazole/Trimethoprim [Septra DS] 1 tab PO BID 5 Days #10 tablet Home Medications: Home Meds Cholecalciferol (Vitamin D3) [Vitamin D3] 1,000 unit PO DAILY 06/07/15 [History] Calcitriol [Rocaltrol] 0.5 mcg PO DAILY 08/22/15 [History] Magnesium Oxide [Magnesium] 500 mg PO TID 07/23/17 [History] Sodium Bicarbonate 650 mg PO BID 07/23/17 [History] predniSONE [Prednisone] 10 mg PO DAILY 09/17/17 [History] Tacrolimus [Prograf] 0.5 mg PO BEDTIME 02/24/18 [History] Fluconazole [Diflucan] 200 mg PO DAILY 08/07/18 [History] Insulin Degludec [Tresiba Flextouch U-100] 15 units SQ DAILY 08/07/18 [History] Carvedilol 6.25 mg PO BID 10/16/18 [History] Acetaminophen with Codeine [Tylenol with Codeine #3 Tablet] 1 each PO Q6H PRN [History] Tacrolimus 1 mg DAILY 02/08/19 [History] Aspirin [Halfprin] 81 mg PO DAILY@1200 02/20/19 [History] Gabapentin [Neurontin] 100 mg PO BEDTIME 02/20/19 [History] Pantoprazole Sodium [Protonix] 40 mg PO BID 02/20/19 [History] Doxycycline Hyclate 100 mg PO BID 5 Days #10 tablet 02/24/19 [Rx] Menthol [Perform Pain Reliever] 0 ml TP QID PRN tube 02/24/19 [Rx] Sulfamethoxazole/Trimethoprim [Septra DS] 1 tab PO BID 5 Days #10 tablet [Rx] Oxygen Therapy Mode: Room Air Forms: ED Department Discharge Referrals: Du Andersen MD [Primary Care Provider] - - Discharge Summary/Plan Comment DC Time >30 min.: No - Patient Data Vitals - Most Recent: Last Vital Signs Temp 36.4 C 02/24/19 08:00 Pulse 69 02/24/19 08:32 Resp 18 02/24/19 08:00 BP 141/81 H 02/24/19 08:32 Pulse Ox 97 02/24/19 08:00 Weight - Most Recent: 71.668 kg Lab Results - Last 24 hrs: Laboratory Results - last 24 hr 02/20/19 02/23/19 02/23/19 Range/Units 12:02 13:30 17:00 WBC (4.5-12.0) X10-3/uL RBC (4.30-5.75) x10(6)uL Hgb (13.5-17.8) g/dL Hct (30.0-51.3) % MCV (80-96) fL MCH (27.7-33.6) pg MCHC (32.2-35.4) g/dL RDW (11.5-15.5) % Plt Count (125-369) X10(3)uL MPV (7.4-10.4) fL Add Manual Diff Neutrophils % (Manual) (46-82) % Band Neutrophils % (0-6) % Lymphocytes % (Manual) (13-37) % Monocytes % (Manual) (4-12) % Eosinophils % (Manual) (0-5) % Sodium (135-145) mmol/L Potassium (3.5-5.3) mmol/L Chloride (100-110) mmol/L Carbon Dioxide (21-32) mmol/L BUN (7-18) mg/dL Creatinine (0.70-1.30) mg/dL Est Cr Clr Drug Dosing mL/min Estimated GFR (MDRD) (>60) BUN/Creatinine Ratio (9-20) Glucose (80-116) mg/dL POC Glucose 286 H D 364 H (80-116) mg/dL Calcium (8.6-10.2) mg/dL Crossmatch See Detail 02/23/19 02/24/19 02/24/19 Range/Units 20:58 06:40 06:40 WBC 5.7 (4.5-12.0) X10-3/uL RBC 2.89 L (4.30-5.75) x10(6)uL Hgb 8.3 L (13.5-17.8) g/dL Hct 24.9 L (30.0-51.3) % MCV 86.2 (80-96) fL MCH 28.7 (27.7-33.6) pg MCHC 33.3 (32.2-35.4) g/dL RDW 13.5 (11.5-15.5) % Plt Count 36 L* (125-369) X10(3)uL MPV 9.8 (7.4-10.4) fL Add Manual Diff Yes Neutrophils % (Manual) 56 (46-82) % Band Neutrophils % 1 (0-6) % Lymphocytes % (Manual) 26 (13-37) % Monocytes % (Manual) 16 H (4-12) % Eosinophils % (Manual) 1 (0-5) % Sodium 135 (135-145) mmol/L Potassium 4.6 (3.5-5.3) mmol/L Chloride 97 L (100-110) mmol/L Carbon Dioxide 30 (21-32) mmol/L BUN 32 H (7-18) mg/dL Creatinine 1.8 H (0.70-1.30) mg/dL Est Cr Clr Drug Dosing 39.88 mL/min Estimated GFR (MDRD) 39 L (>60) BUN/Creatinine Ratio 17.8 (9-20) Glucose 184 H (80-116) mg/dL POC Glucose 312 H (80-116) mg/dL Calcium 6.7 L (8.6-10.2) mg/dL Crossmatch MARGARET Results - Last 24 hrs: Microbiology 02/23/19 07:00 Aerobic Blood Culture - Preliminary Blood - Venous - Lab Draw NO GROWTH AFTER 1 DAY Anaerobic Blood Culture - Preliminary NO GROWTH AFTER 1 DAY 02/23/19 06:55 Aerobic Blood Culture - Preliminary Blood - Venous NO GROWTH AFTER 1 DAY Anaerobic Blood Culture - Preliminary NO GROWTH AFTER 1 DAY 02/20/19 13:15 Aerobic Blood Culture - Preliminary Blood - Venous - Lab Draw NO GROWTH AFTER 3 DAYS Anaerobic Blood Culture - Final (Mrsa) Staphylococcus Aureus 02/20/19 12:02 Aerobic Blood Culture - Preliminary Blood - Venous NO GROWTH AFTER 3 DAYS Anaerobic Blood Culture - Preliminary NO GROWTH AFTER 3 DAYS Med Orders - Current: Current Medications Acetaminophen (Tylenol) 650 mg PO Q4H PRN PRN Reason: Pain Last Admin: 02/22/19 23:05 Dose: 650 mg Acetaminophen/Codeine Phosphate (Tylenol With Codeine No.3 300mg/30mg) 1 tab PO Q6H PRN PRN Reason: PAIN Last Admin: 02/24/19 04:25 Dose: 1 tab Aspirin (Halfprin) 81 mg PO DAILY@1200 [facility] Last Admin: 02/23/19 13:19 Dose: 81 mg Bisacodyl (Dulcolax) 10 mg PO DAILY PRN PRN Reason: Constipation Calcitriol (Rocaltrol) 0.5 mcg PO DAILY [facility] Last Admin: 02/24/19 08:36 Dose: 0.5 mcg Carvedilol (Coreg) 6.25 mg PO BID [facility] Last Admin: 02/24/19 08:32 Dose: 6.25 mg Cholecalciferol (Vitamin D3) 25 mcg PO DAILY [facility] Last Admin: 02/24/19 08:37 Dose: 25 mcg Doxycycline Hyclate (Vibra-Tabs) 100 mg PO Q12H [facility] Fluconazole (Diflucan) 200 mg PO DAILY [facility] Last Admin: 02/24/19 08:33 Dose: 200 mg Gabapentin (Neurontin) 100 mg PO BEDTIME [facility] Last Admin: 02/23/19 21:33 Dose: 100 mg Insulin Glargine (Lantus Solostar) 15 units SUBCUT DAILY [facility] Last Admin: 02/24/19 08:43 Dose: 15 units Magnesium Oxide (Magnesium Oxide) 400 mg PO TID [facility] Last Admin: 02/24/19 08:34 Dose: 400 mg Menthol (Perform Pain Reliever) 0 ml TP QID PRN PRN Reason: Pain (moderate 4-6) Last Admin: 02/24/19 10:46 Dose: 1 ml Morphine Sulfate (Morphine) 2 mg IVPUSH Q4H PRN PRN Reason: Pain (severe 7-10) Last Admin: 02/22/19 12:54 Dose: 2 mg Pantoprazole Sodium (Protonix) 40 mg PO BID@0600,2100 [facility] Last Admin: 02/24/19 04:59 Dose: 40 mg Prednisone (Prednisone) 10 mg PO DAILY [facility] Last Admin: 02/24/19 08:34 Dose: 10 mg Sodium Bicarbonate (Sodium Bicarbonate) 650 mg PO BID [facility] Last Admin: 02/24/19 08:37 Dose: 650 mg Sodium Chloride (Saline Flush) 10 ml FLUSH ASDIRECTED PRN PRN Reason: Keep Vein Open Last Admin: 02/23/19 22:27 Dose: 10 ml Tacrolimus (Prograf) 0.5 mg PO BEDTIME [facility] Last Admin: 02/23/19 21:04 Dose: 0.5 mg Tacrolimus (Prograf) 1 mg PO DAILY [facility] Last Admin: 02/24/19 08:35 Dose: 1 mg Tramadol HCl (Ultram) 50 mg PO Q8H PRN PRN Reason: Pain (moderate 4-6) Last Admin: 02/24/19 09:20 Dose: 50 mg Trimethoprim/Sulfamethoxazole (Septra Ds) 1 tab PO BID [facility] Last Admin: 02/24/19 08:36 Dose: 1 tab Discontinued Medications Acetaminophen (Tylenol Extra Strength) 1,000 mg PO ONETIME ONE Stop: 02/20/19 11:50 Last Admin: 02/20/19 12:15 Dose: 1,000 mg Ceftriaxone Sodium (Rocephin) 2 gm IVPUSH Q24H [facility] Last Admin: 02/21/19 14:04 Dose: 2 gm Citalopram Hydrobromide (Celexa) 20 mg PO DAILY [facility] Glipizide (Glucotrol) 5 mg PO DAILY [facility] Sodium Chloride (Normal Saline) 1,000 mls @ 999 mls/hr IV ASDIRECTED [facility] Last Infusion: 02/20/19 13:20 Dose: 125 mls/hr Ceftriaxone Sodium 1 gm/ (Sodium Chloride) 50 mls @ 200 mls/hr IV ONETIME ONE Stop: 02/20/19 13:36 Last Admin: 02/20/19 13:30 Dose: 200 mls/hr Sodium Chloride (Normal Saline) 250 mls @ 100 mls/hr IV ASDIRECTED [facility] Last Admin: 02/20/19 15:34 Dose: 100 mls/hr Sodium Chloride (Normal Saline) 1,000 mls @ 125 mls/hr IV ASDIRECTED [facility] Last Admin: 02/21/19 06:01 Dose: 125 mls/hr Doxycycline Hyclate 100 mg/ (Sodium Chloride) 100 mls @ 100 mls/hr IV Q12H [facility] Last Admin: 02/23/19 22:25 Dose: 100 mls/hr Influenza Virus Vaccine (Fluzone Quad Syringe) 60 mcg IM .ONCE ONE Stop: 02/20/19 17:01 Influenza Virus Vaccine (Fluzone Quad [id number] Syringe) 60 mcg IM .ONCE ONE Stop: 02/24/19 11:01 Last Admin: 02/24/19 10:50 Dose: 60 mcg Labetalol HCl (Normodyne) 10 mg IVPUSH ONETIME ONE; Protocol Stop: 02/22/19 04:36 Last Admin: 02/22/19 05:18 Dose: 10 mg Menthol (Perform Pain Reliever) 0 ml TP QID PRN PRN Reason: Pain (moderate 4-6) Trimethoprim/Sulfamethoxazole (Septra Ds) 1 tab PO ONETIME ONE Stop: 02/22/19 13:46 Last Admin: 02/22/19 13:53 Dose: 1 tab - Exam General: Reports: Alert, Oriented, Cooperative, No Acute Distress Neck: Reports: Supple Lungs: Reports: Clear to Auscultation, Normal Respiratory Effort Cardiovascular: Reports: Regular Rate, Regular Rhythm GI/Abdominal Exam: Normal Bowel Sounds, Soft, Non-Tender, No Distention Extremities: Other (Mild tenderness). No: Increased Warmth *Q Meaningful Use (DIS) - VTE *Q VTE Anticoagulation Contraindications: Med/TX Not Indicated/Need
[2019-02-24] MEDS: Doxycycline 100 MG in Sodium Chloride 0.9% 100 ML IV SCH (12:30)
== END 2019-02-24 12:10 | disposition home or self-care (01) | DRG 871 ==
LOC: FB.ED 11:25 → UNDOADMIN 13:23 → FB.MS 13:23
PROVIDERS: ADMIT Family Medicine; ATTEND Family Medicine
PROC: 30233N1 Transfusion of Nonautologous Red Blood Cells into Peripheral Vein, Percutaneous Approach (ICD-10-PCS; principal; 2019-02-20)
DX: N10 Acute pyelonephritis (principal); A41.9 Sepsis, unspecified organism; D64.9 Anemia, unspecified; R53.1 Weakness; R41.0 Disorientation, unspecified; E11.9 Type 2 diabetes mellitus without complications; A41.02 Sepsis due to Methicillin resistant Staphylococcus aureus; J18.9 Pneumonia, unspecified organism; N12 Tubulo-interstitial nephritis, not specified as acute or chronic; N17.9 Acute kidney failure, unspecified; F41.9 Anxiety disorder, unspecified; Z79.4 Long term (current) use of insulin; Z94.0 Kidney transplant status; D89.9 Disorder involving the immune mechanism, unspecified; D69.6 Thrombocytopenia, unspecified; E11.65 Type 2 diabetes mellitus with hyperglycemia; Z51.5 Encounter for palliative care; R22.1 Localized swelling, mass and lump, neck; N18.9 Chronic kidney disease, unspecified; H54.7 Unspecified visual loss; I25.10 Atherosclerotic heart disease of native coronary artery without angina pectoris; E78.00 Pure hypercholesterolemia, unspecified; G89.29 Other chronic pain; M54.9 Dorsalgia, unspecified; F32.9 Major depressive disorder, single episode, unspecified; F41.0 Panic disorder [episodic paroxysmal anxiety]; E20.9 Hypoparathyroidism, unspecified; E11.22 Type 2 diabetes mellitus with diabetic chronic kidney disease; D46.9 Myelodysplastic syndrome, unspecified; Z96.643 Presence of artificial hip joint, bilateral; M25.511 Pain in right shoulder; Z87.891 Personal history of nicotine dependence; Z90.49 Acquired absence of other specified parts of digestive tract; Z79.899 Other long term (current) drug therapy; Z79.82 Long term (current) use of aspirin; I25.2 Old myocardial infarction; Z95.5 Presence of coronary angioplasty implant and graft; Z86.010 Personal history of colon polyps; Z87.01 Personal history of pneumonia (recurrent)
CPT/HCPCS: 36415; 71046; 80053; 81001; 83605; 83735; 85025; 86140; 86850; 86900; 86901; 86920; 86922; 87040 ×2; 87077; 87086; 87186 ×2; 96361; 99284; A9270; J7030; 36430; 80048; 82962; 87088; 90471; 90686; 93971-RT; 96374; 99285; J0696; J1815-GY; J2270; J3490; J7050; P9016

== ENCOUNTER 2019-03-10 13:23 | Emergency (ER) | payer MEDICARE, MEDICAID ==
--- NOTE | 2019-03-10 13:49 | EDM.PDOC ---
ED HPI GENERAL MEDICAL PROBLEM - General Stated Complaint: NECK AND EAR PAIN Time Seen by Provider: 03/10/19 13:44 Source of Information: Reports: Patient History Limitations: Reports: No Limitations - History of Present Illness INITIAL COMMENTS - FREE TEXT/NARRATIVE: pt c/o right shoulder / neck pain x 4 weeks, worse with movment, radiates to his right neck denies swelling or trauma or injuries , denies fever or chills, was seen for this in [place] few days ago , had a nondiagnostic cervical CT and was prescribed Flexeril, pt states the Flexeril is not helping, pt denies any other associated sx or concerns. - Related Data Allergies Allergy/AdvReac Type Severity Reaction Status Date / Time No Known Allergies Allergy Verified 02/20/19 11:49 Home Meds: Home Meds Cholecalciferol (Vitamin D3) [Vitamin D3] 1,000 unit PO DAILY 06/07/15 [History] Calcitriol [Rocaltrol] 0.5 mcg PO DAILY 08/22/15 [History] Magnesium Oxide [Magnesium] 500 mg PO TID 07/23/17 [History] Sodium Bicarbonate 650 mg PO BID 07/23/17 [History] predniSONE [Prednisone] 10 mg PO DAILY 09/17/17 [History] Tacrolimus [Prograf] 0.5 mg PO BEDTIME 02/24/18 [History] Fluconazole [Diflucan] 200 mg PO DAILY 08/07/18 [History] Insulin Degludec [Tresiba Flextouch U-100] 15 units SQ DAILY 08/07/18 [History] Carvedilol 6.25 mg PO BID 10/16/18 [History] Acetaminophen with Codeine [Tylenol with Codeine #3 Tablet] 1 each PO Q6H PRN [History] Tacrolimus 1 mg DAILY 02/08/19 [History] Aspirin [Halfprin] 81 mg PO DAILY@1200 02/20/19 [History] Gabapentin [Neurontin] 100 mg PO BEDTIME 02/20/19 [History] Pantoprazole Sodium [Protonix] 40 mg PO BID 02/20/19 [History] Menthol [Perform Pain Reliever] 0 ml TP QID PRN tube 02/24/19 [Rx] Sulfamethoxazole/Trimethoprim [Septra DS] 1 tab PO BID 5 Days #10 tablet [Rx] Past Medical History HEENT History: Reports: Impaired Vision Other HEENT History: Pt wears glasses Cardiovascular History: Reports: CAD, High Cholesterol, [place], Stents, Other (See Below) Other Cardiovascular History: viral menigitis 2015 (also "had [place] 09/2017 went to [place] they put in a stent" this recorded on 09/14/17) Respiratory History: Reports: Other (See Below) Gastrointestinal History: Reports: Cholelithiasis, Colon Polyp, Diverticulosis, Hemorrhoids Genitourinary History: Reports: Renal Disease, UTI, Recurrent, Other (See Below) Other Genitourinary History: kidney transplant (2001) pts fistula was removed early may 2017 from left arm Musculoskeletal History: Reports: Back Pain, Chronic Other Musculoskeletal History: has lump on neck vein and will need it removed Neurological History: Reports: Other (See Below) Other Neuro History: Cryptococcal meningitis Psychiatric History: Reports: Addiction, Anxiety, Depression, Panic Attack, Other (See Below) Other Psychiatric History: gets mildly depressed. POST ALCOHOLIC 1998 Endocrine/Metabolic History: Reports: Diabetes, Type II, Hypoparathyroidism Hematologic History: Reports: Anemia, Blood Transfusion(s) Other Hematologic History: myelodysplastic syndrome Immunologic History: Reports: Immunosuppression, Solid Organ Transplant Other Immunologic History: kidney transplant 2001 Dermatologic History: Reports: None - Infectious Disease History Infectious Disease History: Reports: Chicken Pox - Past Surgical History Head Surgeries/Procedures: Reports: None Cardiovascular Surgical History: Reports: Carotid Stents GI Surgical History: Reports: Appendectomy, Cholecystectomy, Colonoscopy Male Surgical History: Reports: Other (See Below) Other Male Surgeries/Procedures: kidney transplant in 2001 Endocrine Surgical History: Reports: Other (See Below) Other Endocrine Surgeries/Procedures: had thyroid removed Musculoskeletal Surgical History: Reports: Hip Replacement Other Musculoskeletal Surgeries/Procedures:: both hips-replaced Social & Family History - Family History Family Medical History: Noncontributory Cardiac: Reports: CAD, Other (See Below) Other Cardiac Family History: Brother had bypass OBGYN: Reports: Endocrine/Metabolic: Reports: Diabetes, type II - Caffeine Use Caffeine Use: Reports: Coffee Other Caffeine Use: 2-3 cups per day Caffeine Use Comment: 2-3 cups/day - Living Situation & Occupation Living situation: Reports: Alone Occupation: Disabled ED ROS GENERAL - Review of Systems Review Of Systems: See Below Constitutional: Denies: Fever, Chills HEENT: Reports: No Symptoms Respiratory: Reports: No Symptoms Cardiovascular: Reports: No Symptoms GI/Abdominal: Reports: No Symptoms Skin: Reports: No Symptoms Neurological: Reports: No Symptoms. Denies: Numbness, Tingling Psychiatric: Reports: No Symptoms ED EXAM, GENERAL - Physical Exam Exam: See Below Exam Limited By: No Limitations General Appearance: Alert, No Apparent Distress Ear Exam: Bilateral Ear: TM normal Nose: Normal Inspection, Normal Mucosa Throat/Mouth: Normal Inspection Head: Atraumatic, Normocephalic Neck: Normal Inspection, Supple, Full Range of Motion Respiratory/Chest: No Respiratory Distress, Lungs Clear, No Accessory Muscle Use Cardiovascular: Normal Peripheral Pulses, Regular Rate, Rhythm GI/Abdominal: Normal Bowel Sounds, Soft, Non-Tender Extremities: Normal Inspection, Other (tender over the right AC joit, ROM at cervical spine and right shoulder is full, RUE is NVI. ) Neurological: Alert, CN II-XII Intact, No Motor/Sensory Deficits Course - Vital Signs Text/Narrative:: xray results show no acute findings, pt has right shoulder pain that is likley MS , probably secondary to degenerative arethritis, he is medically stable to follow on this issue with PCP. pt was given a script on Vicodin 10 tablets and supportive mng was explained. nurse notes were reviewed. - Orders/Labs/Meds Orders: Active Orders 24 hr Category Date Time Status Shoulder Comp Rt [CR] Stat Exams 03/10/19 13:49 Ordered Departure - Departure Time of Disposition: 14:54 Disposition: Home, Self-Care 01 Clinical Impression: Shoulder pain, right - Discharge Information Referrals: Du Andersen MD [Primary Care Provider] - - My Orders Last 24 Hours: My Active Orders 03/10/19 13:49 Shoulder Comp Rt [CR] Stat - Assessment/Plan Last 24 Hours: My Active Orders 03/10/19 13:49 Shoulder Comp Rt [CR] Stat
[2019-03-10 18:26] VITALS: BP 138/81; PULSE 79
--- NOTE | 2019-03-11 09:03 | CR ---
INDICATION: Shoulder pain. RIGHT SHOULDER: Three views of the right shoulder revealed mild hypertrophic degenerative changes at the glenohumeral joint with the joint space fairly well preserved. Minimal degenerative changes are noted at the AC joint. Adjacent ribs were unremarkable. There is a tiny calcific or bony density along the inferior glenoid labrum, which may represent a degenerative change or possibly posttraumatic change with dystrophic soft tissue calcification from a previous injury. A tiny avulsion chip fracture fragment off the glenoid area that did not unite from previous trauma could also be present. It likely was present on 02/20/19 chest x-ray. IMPRESSION: Relatively minimal degenerative changes at the shoulder joints. MTDD
== END 2019-03-10 15:15 | disposition home or self-care (01) ==
LOC: FB.ED 13:23
DX: M25.511 Pain in right shoulder (principal); E11.9 Type 2 diabetes mellitus without complications; I25.10 Atherosclerotic heart disease of native coronary artery without angina pectoris; I25.2 Old myocardial infarction; Z95.5 Presence of coronary angioplasty implant and graft; Z79.82 Long term (current) use of aspirin; Z85.038 Personal history of other malignant neoplasm of large intestine
CPT/HCPCS: 73030-RT; 99283-25

== ENCOUNTER 2019-03-23 09:09 | Emergency (ER) | payer MEDICARE, MEDICAID ==
[2019-03-23 09:28] VITALS: BP 157/79; PULSE 76
--- NOTE | 2019-03-23 09:37 | EDM.PDOC ---
ED HPI GENERAL MEDICAL PROBLEM - General Chief Complaint: Back Pain or Injury Stated Complaint: BURNING FEELING IN BACK/CHEST Time Seen by Provider: 03/23/19 09:30 Source of Information: Reports: Patient History Limitations: Reports: No Limitations - History of Present Illness INITIAL COMMENTS - FREE TEXT/NARRATIVE: 58-year-old male who reports pain in his right chest shoulder neck and back area. He reports he has had this pain for the past 6 months. He reports that he has been to the [facility] and also to [facility] and has been seen in the emergency department for the same pain. He was most recently seen in the clinic by Dr. Garcia and was prescribed tramadol for this pain and he reports that it doesn't really seem to be helping with his pain today. He feels the pain is somewhat worse today and that is what prompted him to come to the emergency department. He has had no nausea or vomiting. He has been urinating normally. No hematuria or dysuria. No cough. No shortness of breath. The pain is worse with palpation, movement and with breathing. He has had no fevers or chills. No abdominal pain. No history of trauma. In addition, the patient has a history of chronic anemia and would like his blood counts checked today as well. He is currently rating the pain in his chest as a 7/10. It is a sharp and burning type pain. Rest makes it somewhat better but nothing really makes it go away. There are no other associated signs or symptoms. There are no other modifying factors. Onset: Other (Ongoing problems with a past 6 months. Seemed to be worse today. Medications not working.) Duration: Constant, Getting Worse (Feels that the pain is worse today.) Location: Reports: Chest, Back Quality: Reports: Burning, Sharp Severity: Moderate Improves with: Reports: Rest Worsens with: Reports: Breathing, Other (Palpation), Movement Context: Reports: Other (As above) Associated Symptoms: Reports: No Other Symptoms (Nothing except as above.) Treatments ORDINARY SEAMAN: Reports: Other Medication(s) (Tramadol) - Related Data Allergies Allergy/AdvReac Type Severity Reaction Status Date / Time No Known Allergies Allergy Verified 02/20/19 11:49 Home Meds: Home Meds Cholecalciferol (Vitamin D3) [Vitamin D3] 1,000 unit PO DAILY 06/07/15 [History] Calcitriol [Rocaltrol] 0.5 mcg PO DAILY 08/22/15 [History] Magnesium Oxide [Magnesium] 500 mg PO TID 07/23/17 [History] Sodium Bicarbonate 650 mg PO BID 07/23/17 [History] predniSONE [Prednisone] 10 mg PO DAILY 09/17/17 [History] Tacrolimus [Prograf] 0.5 mg PO BEDTIME 02/24/18 [History] Fluconazole [Diflucan] 200 mg PO DAILY 08/07/18 [History] Insulin Degludec [Tresiba Flextouch U-100] 15 units SQ DAILY 08/07/18 [History] Carvedilol 6.25 mg PO BID 10/16/18 [History] Acetaminophen with Codeine [Tylenol with Codeine #3 Tablet] 1 each PO Q6H PRN [History] Tacrolimus 1 mg DAILY 02/08/19 [History] Aspirin [Halfprin] 81 mg PO DAILY@1200 02/20/19 [History] Gabapentin [Neurontin] 100 mg PO BEDTIME 02/20/19 [History] Pantoprazole Sodium [Protonix] 40 mg PO BID 02/20/19 [History] Menthol [Perform Pain Reliever] 0 ml TP QID PRN tube 02/24/19 [Rx] Sulfamethoxazole/Trimethoprim [Septra DS] 1 tab PO BID 5 Days #10 tablet [Rx] Hydrocodone/Acetaminophen [Hydrocodon-Acetaminophen 5-325] 1 each PO Q6HR PRN # 10 tablet 03/10/19 [Rx] Past Medical History HEENT History: Reports: Impaired Vision Other HEENT History: Pt wears glasses Cardiovascular History: Reports: CAD, High Cholesterol, [place], Stents, Other (See Below) Other Cardiovascular History: viral menigitis 2015 (also "had [place] 09/2017 went to [place] they put in a stent" this recorded on 09/14/17) Gastrointestinal History: Reports: Cholelithiasis, Colon Polyp, Diverticulosis, Hemorrhoids Genitourinary History: Reports: Renal Disease, UTI, Recurrent, Other (See Below) Other Genitourinary History: kidney transplant (2001) pts fistula was removed early may 2017 from left arm Musculoskeletal History: Reports: Back Pain, Chronic Neurological History: Reports: Other (See Below) Other Neuro History: Cryptococcal meningitis Psychiatric History: Reports: Addiction, Anxiety, Depression, Panic Attack, Other (See Below) Other Psychiatric History: gets mildly depressed. POST ALCOHOLIC 1998 Endocrine/Metabolic History: Reports: Diabetes, Type II, Hypoparathyroidism Hematologic History: Reports: Anemia, Blood Transfusion(s) Other Hematologic History: myelodysplastic syndrome Immunologic History: Reports: Immunosuppression, Solid Organ Transplant Other Immunologic History: kidney transplant 2001 Dermatologic History: Reports: None - Infectious Disease History Infectious Disease History: Reports: Chicken Pox - Past Surgical History Cardiovascular Surgical History: Reports: Coronary Artery Stent GI Surgical History: Reports: Appendectomy, Cholecystectomy, Colonoscopy Male Surgical History: Reports: Other (See Below) Other Male Surgeries/Procedures: kidney transplant in 2001 Endocrine Surgical History: Reports: Other (See Below) Other Endocrine Surgeries/Procedures: had thyroid removed Musculoskeletal Surgical History: Reports: Hip Replacement Other Musculoskeletal Surgeries/Procedures:: both hips-replaced Social & Family History - Family History Family Medical History: Noncontributory Cardiac: Reports: CAD, Other (See Below) Other Cardiac Family History: Brother had bypass OBGYN: Reports: Endocrine/Metabolic: Reports: Diabetes, type II - Tobacco Use Smoking Status *Q: Unknown Ever Smoked (Nonsmoker) - Caffeine Use Caffeine Use: Reports: Coffee Other Caffeine Use: 2-3 cups per day Caffeine Use Comment: 2-3 cups/day - Alcohol Use Alcohol Use History: Yes Alcohol Use in Last Twelve Months: No Alcohol Use Comment: Reports sober since 1998 - Living Situation & Occupation Living situation: Reports: Alone Occupation: Disabled ED ROS GENERAL - Review of Systems Review Of Systems: See Below Constitutional: Reports: Fatigue (Chronic) HEENT: Reports: No Symptoms Respiratory: Reports: No Symptoms Cardiovascular: Reports: Chest Pain Endocrine: Reports: No Symptoms GI/Abdominal: Reports: No Symptoms : Reports: No Symptoms Musculoskeletal: Reports: Neck Pain (Right sided), Shoulder Pain (Right sided), Back Pain (Right sided, upper and mid) Skin: Reports: No Symptoms Neurological: Reports: No Symptoms Hematologic/Lymphatic: Reports: No Symptoms Immunologic: Reports: No Symptoms ED EXAM, GENERAL - Physical Exam Exam: See Below Exam Limited By: No Limitations General Appearance: Alert, WD/WN, Mild Distress Eye Exam: Bilateral Eye: EOMI, Normal Inspection, PERRL Ears: Normal External Exam, Hearing Grossly Normal Ear Exam: Bilateral Ear: Auricle Normal Nose: Normal Inspection, Normal Mucosa, No Blood Throat/Mouth: Normal Inspection, Normal Oropharynx, Normal Voice, No Airway Compromise Head: Atraumatic, Normocephalic Neck: Normal Inspection, Supple, Non-Tender, Full Range of Motion Respiratory/Chest: No Respiratory Distress, Lungs Clear, Normal Breath Sounds, No Accessory Muscle Use, Other (Right sided chest tender to palpation. No crepitus. No subcutaneous emphysema.) Cardiovascular: Normal Peripheral Pulses, Regular Rate, Rhythm, No JVD Peripheral Pulses: 2+: Radial (L), Radial (R) GI/Abdominal: Normal Bowel Sounds, Soft, Non-Tender, No Mass Back Exam: Normal Inspection, Paraspinal Tenderness (Right upper and mid area.) Extremities: Normal Inspection, Normal Range of Motion, No Pedal Edema, Normal Capillary Refill Neurological: Alert, Oriented, CN II-XII Intact, Normal Cognition, No Motor/ Sensory Deficits Psychiatric: Normal Affect Skin Exam: Warm, Dry, Intact, No Rash EKG INTERPRETATION EKG Date: 03/23/19 Time: 10:45 Rhythm: NSR Rate (Beats/Min): 70 [place]: Normal P-Wave: Present QRS: Normal ST-T: Normal QT: Normal Comparison: No Change (No change from EKG performed on 01/23/2019.) Course - Vital Signs Last Recorded V/S: Last Vital Signs Temp 36.3 C 03/23/19 09:25 Pulse 76 03/23/19 09:25 Resp 14 03/23/19 09:25 BP 157/79 H 03/23/19 09:25 Pulse Ox 100 03/23/19 09:25 - Orders/Labs/Meds Orders: Active Orders 24 hr Category Date Time Status EKG Documentation Completion [RC] ASDIRECTED Care 03/23/19 09:50 Active CBC WITH AUTO DIFF [HEME] Stat Lab 03/23/19 10:00 Results TYPE AND SCREEN [BBK] Stat Lab 03/23/19 11:21 Ordered EKG 12 Lead [EK] Routine Ther 03/23/19 09:49 Ordered Labs: Laboratory Tests 03/23/19 03/23/19 03/23/19 Range/Units 10:00 10:00 10:00 WBC 5.4 (4.5-12.0) X10-3/uL RBC 1.94 L (4.30-5.75) x10(6)uL Hgb 6.6 L* (13.5-17.8) g/dL Hct 18.2 L* (30.0-51.3) % MCV 93.8 (80-96) fL MCH 33.8 H (27.7-33.6) pg MCHC 36.1 H (32.2-35.4) g/dL RDW 13.7 (11.5-15.5) % Plt Count 51 L (125-369) X10(3)uL MPV 10.4 (7.4-10.4) fL Add Manual Diff Yes Sodium 133 L (135-145) mmol/L Potassium 4.3 (3.5-5.3) mmol/L Chloride 98 L (100-110) mmol/L Carbon Dioxide 30 (21-32) mmol/L BUN 30 H (7-18) mg/dL Creatinine 1.4 H (0.70-1.30) mg/dL Est Cr Clr Drug Dosing 51.27 mL/min Estimated GFR (MDRD) 52 L (>60) BUN/Creatinine Ratio 21.4 H (9-20) Glucose 161 H (80-116) mg/dL Calcium 7.0 L (8.6-10.2) mg/dL Magnesium 1.9 (1.8-2.5) mg/dL Total Bilirubin 0.3 (0.1-1.3) mg/dL AST 52 H D (5-25) IU/L ALT 87 H D (12-36) U/L Alkaline Phosphatase 214 H (56-112) IU/L Troponin I < 0.017 L (<0.017-0.056) ng/mL Total Protein 6.6 (6.0-8.0) g/dL Albumin 2.4 L (3.5-5.2) g/dL Globulin 4.2 g/dL Albumin/Globulin Ratio 0.6 Meds: Medications Discontinued Medications Generic Name Dose Route Start Last Admin Trade Name Freq PRN Reason Stop Dose Admin Hydrocodone Bitart/Acetaminophen 1 tab 03/23/19 09:50 03/23/19 09:57 [place] 325-5 Mg PO 03/23/19 09:51 1 tab ONETIME ONE Administration - Radiology Interpretation Free Text/Narrative:: Chest x-ray PA and lateral shows no acute process. - Re-Assessments/Exams Free Text/Narrative Re-Assessment/Exam: 03/23/19 11:20: Patient's pain is somewhat improved after the hydrocodone. His chest x-ray, EKG and blood tests are all reassuring except he does have a hemoglobin of 6.6. The pain appears to be a musculoskeletal in nature. I have told the patient that any pain management or pain prescriptions, he will need to go through his primary doctor. His blood tests do show that he has severe anemia. This could be contributing to his symptoms. I discussed the patient's case with Dr. Saab and Dr. Saab will see the patient and arrange for blood transfusions. I will discharge the patient and Dr. Saab will treat the patient as an outpatient with blood transfusions. Departure - Departure Time of Disposition: 11:45 Disposition: Home, Self-Care 01 Condition: Fair Clinical Impression: Musculoskeletal chest pain, Severe anemia Chronic pain Qualifiers: Chronic pain type: other chronic pain Qualified Code(s): G89.29 - Other chronic pain - Discharge Information Instructions: Chronic Pain, Adult Referrals: Du Andersen MD [Primary Care Provider] - Forms: ED Department Discharge Additional Instructions: Your blood tests showed no evidence of any heart type issue or other significant problem. Your chest x-ray was unchanged. Your hemoglobin was 6.6 and I have discussed with Dr. Saab so that you may get blood transfusion as an outpatient today. As we discussed, you may take the tramadol for pain as needed. You will need to go through your primary provider or any further pain medications and for your pain management. - My Orders Last 24 Hours: My Active Orders 03/23/19 09:49 EKG 12 Lead [EK] Routine 03/23/19 09:50 EKG Documentation Completion [RC] ASDIRECTED 03/23/19 10:00 CBC WITH AUTO DIFF [HEME] Stat 03/23/19 11:21 TYPE AND SCREEN [BBK] Stat - Assessment/Plan Last 24 Hours: My Active Orders 03/23/19 09:49 EKG 12 Lead [EK] Routine 03/23/19 09:50 EKG Documentation Completion [RC] ASDIRECTED 03/23/19 10:00 CBC WITH AUTO DIFF [HEME] Stat 03/23/19 11:21 TYPE AND SCREEN [BBK] Stat
[2019-03-23] MEDS: Acetaminophen/HYDROcodone 325-5 MG Tab PO ONE (09:57)
--- NOTE | 2019-03-23 11:10 | CR ---
INDICATION: Bilateral shoulder front and back chest pain. CHEST: PA and lateral views of the chest were obtained 03/23/19 and compared with 02/20/19 and 11/21/18. The aorta is tortuous with calcification in the arch and descending portion. The heart appears slightly enlarged with LVE. Moderate hypertrophic degenerative changes are noted off vertebral bodies in the mid to lower thoracic levels. No consolidating pneumonia or effusion was seen with decreased infiltrate and effusion suggested at the left costophrenic angle, suggesting resolved minimal patchy pneumonia and pleuritis in that area. A definite acute process is not seen at this time. IMPRESSION: 1. No acute process. 2. ASHD with mild LVE. 3. DJD spine. MTDD
== END 2019-03-23 12:30 | disposition home or self-care (01) ==
LOC: FB.ED 09:09
DX: R07.89 Other chest pain (principal); G89.29 Other chronic pain; D64.9 Anemia, unspecified; I25.10 Atherosclerotic heart disease of native coronary artery without angina pectoris; I25.2 Old myocardial infarction; E11.9 Type 2 diabetes mellitus without complications; Z79.82 Long term (current) use of aspirin; Z79.4 Long term (current) use of insulin; Z79.899 Other long term (current) drug therapy
CPT/HCPCS: 36415; 71046; 80053; 83735; 84484; 85025; 93005; 93010; 99283; 99285-25; A9270-GY

== ENCOUNTER 2019-03-24 11:45 | Emergency (ER) | payer MEDICARE, MEDICAID ==
[2019-03-24 12:02] VITALS: BP 184/94; PULSE 82
[2019-03-24] MEDS ORDERED: Acetaminophen/HYDROcodone 325-5 MG Tab PO ONE (12:31)
--- NOTE | 2019-03-24 12:31 | EDM.PDOC ---
ED HPI GENERAL MEDICAL PROBLEM - General Chief Complaint: General Stated Complaint: IN PAIN CHEST AND BACK Time Seen by Provider: 03/24/19 12:20 Source of Information: Reports: Patient, Old Records History Limitations: Reports: No Limitations - History of Present Illness INITIAL COMMENTS - FREE TEXT/NARRATIVE: Hollis returns to [facility] ED with ongoing chronic chest and upper back pains, primarily on the R side, Dr. Pierre's notes reviewed from March 23. Pain remains chronic, positional, sharp and burning at times, without SOB or pleuritic features. His medical work up was reviewed and has been noncontributory, and he has not responded to the Tramadol tabs prescribed at the Clinic. He has an appointment to see his transplant provider in 2 days. His PCP has prescribed Narco 5/325 in the past, but his prescription has been depleted. - Related Data Allergies Allergy/AdvReac Type Severity Reaction Status Date / Time No Known Allergies Allergy Verified 03/23/19 13:15 Home Meds: Home Meds Cholecalciferol (Vitamin D3) [Vitamin D3] 1,000 unit PO DAILY 06/07/15 [History] Calcitriol [Rocaltrol] 0.5 mcg PO DAILY 08/22/15 [History] Magnesium Oxide [Magnesium] 500 mg PO TID 07/23/17 [History] Sodium Bicarbonate 650 mg PO BID 07/23/17 [History] predniSONE [Prednisone] 10 mg PO DAILY 09/17/17 [History] Tacrolimus [Prograf] 0.5 mg PO BEDTIME 02/24/18 [History] Fluconazole [Diflucan] 200 mg PO DAILY 08/07/18 [History] Insulin Degludec [Tresiba Flextouch U-100] 15 units SQ DAILY 08/07/18 [History] Carvedilol 6.25 mg PO BID 10/16/18 [History] Tacrolimus 1 mg DAILY 02/08/19 [History] Aspirin [Halfprin] 81 mg PO DAILY@1200 02/20/19 [History] Gabapentin [Neurontin] 100 mg PO BEDTIME 02/20/19 [History] Pantoprazole Sodium [Protonix] 40 mg PO BID 02/20/19 [History] traMADol [Ultram] 50 mg PO QID PRN 03/23/19 [History] Past Medical History HEENT History: Reports: Impaired Vision Other HEENT History: Pt wears glasses Cardiovascular History: Reports: CAD, High Cholesterol, [place], Stents, Other (See Below) Other Cardiovascular History: viral menigitis 2015 (also "had ME 09/2017 went to [place] they put in a stent" this recorded on 09/14/17) Respiratory History: Reports: Other (See Below) Gastrointestinal History: Reports: Cholelithiasis, Colon Polyp, Diverticulosis, Hemorrhoids Genitourinary History: Reports: Renal Disease, UTI, Recurrent, Other (See Below) Other Genitourinary History: kidney transplant (2001) pts fistula was removed early may 2017 from left arm Musculoskeletal History: Reports: Back Pain, Chronic Other Musculoskeletal History: has lump on neck vein and will need it removed Neurological History: Reports: Other (See Below) Other Neuro History: Cryptococcal meningitis Psychiatric History: Reports: Addiction, Anxiety, Depression, Panic Attack, Other (See Below) Other Psychiatric History: gets mildly depressed. POST ALCOHOLIC 1998 Endocrine/Metabolic History: Reports: Diabetes, Type II, Hypoparathyroidism Hematologic History: Reports: Anemia, Blood Transfusion(s) Other Hematologic History: myelodysplastic syndrome Immunologic History: Reports: Immunosuppression, Solid Organ Transplant Other Immunologic History: kidney transplant 2001 Dermatologic History: Reports: None - Infectious Disease History Infectious Disease History: Reports: Chicken Pox - Past Surgical History Head Surgeries/Procedures: Reports: None Cardiovascular Surgical History: Reports: Coronary Artery Stent GI Surgical History: Reports: Appendectomy, Cholecystectomy, Colonoscopy Male Surgical History: Reports: Other (See Below) Other Male Surgeries/Procedures: kidney transplant in 2001 Endocrine Surgical History: Reports: Other (See Below) Other Endocrine Surgeries/Procedures: had thyroid removed Musculoskeletal Surgical History: Reports: Hip Replacement Other Musculoskeletal Surgeries/Procedures:: both hips-replaced Social & Family History - Family History Family Medical History: Noncontributory Cardiac: Reports: CAD, Other (See Below) Other Cardiac Family History: Brother had bypass OBGYN: Reports: Endocrine/Metabolic: Reports: Diabetes, type II - Tobacco Use Smoking Status *Q: Current Every Day Smoker Years of Tobacco use: 20 Packs/Tins Daily: 0.5 - Caffeine Use Caffeine Use: Reports: Coffee Other Caffeine Use: 2-3 cups per day Caffeine Use Comment: 2-3 cups/day - Recreational Drug Use Recreational Drug Use: Yes Recreational Drug Type: Reports: Marijuana/Hashish - Living Situation & Occupation Living situation: Reports: Alone Occupation: Disabled ED ROS GENERAL - Review of Systems Review Of Systems: See Below Constitutional: Reports: Malaise, Fatigue Respiratory: Reports: No Symptoms Cardiovascular: Reports: Chest Pain Endocrine: Reports: Fatigue GI/Abdominal: Reports: No Symptoms : Reports: No Symptoms Musculoskeletal: Reports: Neck Pain, Shoulder Pain, Back Pain Skin: Reports: No Symptoms Neurological: Reports: No Symptoms Psychiatric: Reports: Anxiety, Other (insomnia) Hematologic/Lymphatic: Reports: Anemia Immunologic: Reports: No Symptoms ED EXAM, GENERAL - Physical Exam Exam: See Below Exam Limited By: No Limitations General Appearance: Alert, WD/WN, Anxious, Mild Distress Eye Exam: Bilateral Eye: EOMI, Normal Inspection, PERRL Ears: Normal External Exam Nose: Normal Inspection Throat/Mouth: Normal Oropharynx, Normal Voice Head: Normocephalic Neck: Normal Inspection, Supple, Tender Lateral (mild tenderness of R strap mm ) Respiratory/Chest: No Respiratory Distress, No Accessory Muscle Use, Decreased Breath Sounds, Other (R anterior chest wall tender at multiple locations incuding the SCM, R parasternal, R periscapular, R shoulder and R AC joint; no rib tenderness, no visible swelling) Cardiovascular: Regular Rate, Rhythm GI/Abdominal: Normal Bowel Sounds, Soft, Non-Tender, No Organomegaly, No Distention, No Mass Back Exam: Normal Inspection, Paraspinal Tenderness (R throacic paraspinal mm ) Extremities: Normal Inspection Neurological: Alert, Oriented, CN II-XII Intact Psychiatric: Anxious Skin Exam: Warm, Dry Lymphatic: No Adenopathy Course - Vital Signs Text/Narrative:: Clinical examination remains unchanged. I administered a Narco 5/325 as one time dose, and arranged a follow up visit with PCP for tomorrow am. Last Recorded V/S: Last Vital Signs Temp 36.8 C 03/24/19 12:01 Pulse 82 03/24/19 12:01 Resp BP 184/94 H 03/24/19 12:01 Pulse Ox 98 03/24/19 12:01 Departure - Departure Time of Disposition: 12:37 Disposition: Home, Self-Care 01 Condition: Fair Clinical Impression: Musculoskeletal chest pain - Discharge Information *PRESCRIPTION DRUG MONITORING PROGRAM REVIEWED*: Not Applicable *COPY OF PRESCRIPTION DRUG MONITORING REPORT IN PATIENT JUNI: Not Applicable Referrals: Du Andersen MD [Primary Care Provider] - - Problem List & Annotations (1) Musculoskeletal chest pain SNOMED Code(s): 284861471 Code(s): R07.89 - OTHER CHEST PAIN Status: Acute Current Visit: Yes Annotation/Comment:: I suggested holding the Tramadol for lack of efficacy, and to see PCP tomorrow am. An appt. was scheduled on his behalf. - Problem List Review Problem List Initiated/Reviewed/Updated: Yes - Assessment/Plan Plan: Follow up with PCP.
== END 2019-03-24 13:09 | disposition home or self-care (01) ==
LOC: FB.ED 11:45
DX: R07.89 Other chest pain (principal); I25.10 Atherosclerotic heart disease of native coronary artery without angina pectoris; I25.2 Old myocardial infarction; E11.9 Type 2 diabetes mellitus without complications; E20.9 Hypoparathyroidism, unspecified; F17.210 Nicotine dependence, cigarettes, uncomplicated; Z79.82 Long term (current) use of aspirin; Z79.4 Long term (current) use of insulin; Z79.899 Other long term (current) drug therapy; Z95.5 Presence of coronary angioplasty implant and graft
CPT/HCPCS: 99283; 99284; A9270

== ENCOUNTER 2019-03-28 13:36 | Emergency (ER) | payer MEDICARE, MEDICAID ==
[2019-03-28 13:47] VITALS: BP 140/85; PULSE 85
--- NOTE | 2019-03-28 14:30 | EDM.PDOC ---
ED HPI GENERAL MEDICAL PROBLEM - General Chief Complaint: General Stated Complaint: CAN'T HARDLY WALK,RT ARM HURTS Time Seen by Provider: 03/28/19 14:24 Source of Information: Reports: Patient History Limitations: Reports: No Limitations - History of Present Illness INITIAL COMMENTS - FREE TEXT/NARRATIVE: Patient has a h/o chronic pain. Complains of right shoulder, right elbow, left hip and left lower leg pain x 2 days. Patient has been taking Tramadol and Tylenol with minimal improvement, has only 2 tablets left of the Tramadol (rx'd 03/20/19). Denies injury. Patient requests stronger narcotic pain medication, [place] has worked well in the past. Also has a h/o kidney transplant in 2001 and Myelodysplastic syndrome for which he is transfused q3 weeks, most recently 04/30. Patient denies chest pain, shortness of breath or fevers. Onset Date: 03/27/19 Quality: Reports: Dull Severity: Moderate Worsens with: Reports: Movement Treatments [employer]: Reports: Acetaminophen, Other (see below) (Tramadol) L back & hip, R elbow & shoulder Pain Score (Numeric/FACES): 9 - Related Data Allergies Allergy/AdvReac Type Severity Reaction Status Date / Time No Known Allergies Allergy Verified 03/28/19 13:41 Home Meds: Home Meds Cholecalciferol (Vitamin D3) [Vitamin D3] 1,000 unit PO DAILY 06/07/15 [History] Calcitriol [Rocaltrol] 0.5 mcg PO DAILY 08/22/15 [History] Magnesium Oxide [Magnesium] 500 mg PO TID 07/23/17 [History] Sodium Bicarbonate 650 mg PO BID 07/23/17 [History] predniSONE [Prednisone] 10 mg PO DAILY 09/17/17 [History] Tacrolimus [Prograf] 0.5 mg PO BEDTIME 02/24/18 [History] Fluconazole [Diflucan] 200 mg PO DAILY 08/07/18 [History] Insulin Degludec [Tresiba Flextouch U-100] 15 units SQ DAILY 08/07/18 [History] Carvedilol 6.25 mg PO BID 10/16/18 [History] Tacrolimus 1 mg DAILY 02/08/19 [History] Aspirin [Halfprin] 81 mg PO DAILY@1200 02/20/19 [History] Gabapentin [Neurontin] 100 mg PO BEDTIME 02/20/19 [History] Pantoprazole Sodium [Protonix] 40 mg PO BID 02/20/19 [History] traMADol HCl [Tramadol HCl] 50 - 100 mg PO Q8H PRN #15 tablet 03/28/19 [Rx] Past Medical History HEENT History: Reports: Impaired Vision Other HEENT History: Pt wears glasses Cardiovascular History: Reports: CAD, High Cholesterol, [place], Stents, Other (See Below) Other Cardiovascular History: viral menigitis 2015 (also "had PA 09/2017 went to [place] they put in a stent" this recorded on 09/14/17) Respiratory History: Reports: Other (See Below) Gastrointestinal History: Reports: Cholelithiasis, Colon Polyp, Diverticulosis, Hemorrhoids Genitourinary History: Reports: Renal Disease, UTI, Recurrent, Other (See Below) Other Genitourinary History: kidney transplant (2001) pts fistula was removed early may 2017 from left arm Musculoskeletal History: Reports: Back Pain, Chronic Other Musculoskeletal History: has lump on neck vein and will need it removed Neurological History: Reports: Other (See Below) Other Neuro History: Cryptococcal meningitis Psychiatric History: Reports: Addiction, Anxiety, Depression, Panic Attack, Other (See Below) Other Psychiatric History: gets mildly depressed. POST ALCOHOLIC 1998 Endocrine/Metabolic History: Reports: Diabetes, Type II, Hypoparathyroidism Hematologic History: Reports: Anemia, Blood Transfusion(s) Other Hematologic History: myelodysplastic syndrome Immunologic History: Reports: Immunosuppression, Solid Organ Transplant Other Immunologic History: kidney transplant 2001 Dermatologic History: Reports: None - Infectious Disease History Infectious Disease History: Reports: Chicken Pox, Meningitis - Past Surgical History Head Surgeries/Procedures: Reports: None Cardiovascular Surgical History: Reports: Coronary Artery Stent GI Surgical History: Reports: Appendectomy, Cholecystectomy, Colonoscopy Male Surgical History: Reports: Other (See Below) Other Male Surgeries/Procedures: kidney transplant in 2001 Endocrine Surgical History: Reports: Other (See Below) Other Endocrine Surgeries/Procedures: had thyroid removed Musculoskeletal Surgical History: Reports: Hip Replacement Other Musculoskeletal Surgeries/Procedures:: both hips-replaced Social & Family History - Family History Family Medical History: Noncontributory Cardiac: Reports: CAD, Other (See Below) Other Cardiac Family History: Brother had bypass OBGYN: Reports: Endocrine/Metabolic: Reports: Diabetes, type II - Caffeine Use Caffeine Use: Reports: Coffee Other Caffeine Use: 2-3 cups per day Caffeine Use Comment: 2-3 cups/day - Recreational Drug Use Recreational Drug Type: Reports: Marijuana/Hashish Recreational Drug Use Frequency: Monthly - Living Situation & Occupation Living situation: Reports: Alone Occupation: Disabled ED ROS GENERAL - Review of Systems Review Of Systems: Comprehensive ROS is negative, except as noted in HPI. ED EXAM, GENERAL - Physical Exam Exam: See Below Exam Limited By: No Limitations General Appearance: Alert, WD/WN, No Apparent Distress Nose: Normal Inspection Throat/Mouth: No Airway Compromise Head: Atraumatic, Normocephalic Neck: Normal Inspection, Supple Respiratory/Chest: No Respiratory Distress, Lungs Clear, Normal Breath Sounds Cardiovascular: Regular Rate, Rhythm, No Murmur Peripheral Pulses: 2+: Radial (R), Dorsalis Pedis (L) GI/Abdominal: Normal Bowel Sounds, Soft, Non-Tender, No Distention Extremities: Other (Right shoulder tenderness, no defomity. Right elbow tenderness, no swelling or deformity. Left hip tenderness, no deformity. Left lower leg tenderness, no swelling or deformity.) Neurological: Alert, Normal Cognition, No Motor/Sensory Deficits Psychiatric: Normal Affect, Normal Mood Skin Exam: Warm, Dry, Intact Course - Vital Signs Last Recorded V/S: Last Vital Signs Temp 36.3 C 03/28/19 13:36 Pulse 85 03/28/19 13:36 Resp 18 03/28/19 13:36 BP 140/85 03/28/19 13:36 Pulse Ox 98 03/28/19 13:36 - Orders/Labs/Meds Orders: Active Orders 24 hr Category Date Time Status CBC WITH AUTO DIFF [HEME] Stat Lab 03/28/19 14:05 Results Labs: Laboratory Tests 03/28/19 03/28/19 Range/Units 14:05 14:05 WBC 5.5 (4.5-12.0) X10-3/uL RBC 2.61 L (4.30-5.75) x10(6)uL Hgb 8.4 L (13.5-17.8) g/dL Hct 24.1 L (30.0-51.3) % MCV 92.1 (80-96) fL MCH 32.0 (27.7-33.6) pg MCHC 34.8 (32.2-35.4) g/dL RDW 13.7 (11.5-15.5) % Plt Count 49 L (125-369) X10(3)uL MPV 9.0 (7.4-10.4) fL Add Manual Diff Yes Sodium 132 L (135-145) mmol/L Potassium 4.8 (3.5-5.3) mmol/L Chloride 97 L (100-110) mmol/L Carbon Dioxide 32 (21-32) mmol/L BUN 32 H (7-18) mg/dL Creatinine 1.5 H (0.70-1.30) mg/dL Est Cr Clr Drug Dosing 47.85 mL/min Estimated GFR (MDRD) 48 L (>60) BUN/Creatinine Ratio 21.3 H (9-20) Glucose 308 H D (80-116) mg/dL Calcium 7.8 L (8.6-10.2) mg/dL Departure - Departure Time of Disposition: 14:35 Disposition: Home, Self-Care 01 Condition: Good Clinical Impression: Chronic pain Qualifiers: Chronic pain type: other chronic pain Qualified Code(s): G89.29 - Other chronic pain - Discharge Information *PRESCRIPTION DRUG MONITORING PROGRAM REVIEWED*: Yes *COPY OF PRESCRIPTION DRUG MONITORING REPORT IN PATIENT JUNI: No Prescriptions: traMADol HCl [Tramadol HCl] 50 - 100 mg PO Q8H PRN #15 tablet PRN Reason: Pain Instructions: Chronic Pain, Adult Referrals: Du Andersen MD [Primary Care Provider] - 2 Days Forms: ED Department Discharge Additional Instructions: Fill the prescription for Tramadol and take as directed. You may also take Tylenol as needed. Follow up with your primary physician in 2 days to discuss switching to a different type of pain medication. You must only obtain pain medication prescriptions from one physician. Return to the ER as needed. - My Orders Last 24 Hours: My Active Orders 03/28/19 14:05 CBC WITH AUTO DIFF [HEME] Stat - Assessment/Plan Last 24 Hours: My Active Orders 03/28/19 14:05 CBC WITH AUTO DIFF [HEME] Stat
== END 2019-03-28 14:53 | disposition home or self-care (01) ==
LOC: FB.ED 13:36
DX: G89.29 Other chronic pain (principal); I25.10 Atherosclerotic heart disease of native coronary artery without angina pectoris; I25.2 Old myocardial infarction; E11.9 Type 2 diabetes mellitus without complications; Z95.5 Presence of coronary angioplasty implant and graft; Z79.899 Other long term (current) drug therapy; Z79.4 Long term (current) use of insulin; Z79.82 Long term (current) use of aspirin; Z94.0 Kidney transplant status
CPT/HCPCS: 36415; 80048; 85025; 99283

== ENCOUNTER 2019-04-01 16:12 | Inpatient (IN) | payer MEDICARE, MEDICAID ==
[2019-04-01] MEDS ORDERED: Sodium Chloride 0.9% 1,000 ML IV ONE (16:30)
[2019-04-01] MEDS ORDERED: Sodium Chloride 0.9% 10 ML Syringe FLUSH PRN (16:33)
[2019-04-01] MEDS ORDERED: Sodium Bicarbonate 8.4% 50 MEQ/50 ML Syringe IVPUSH ONE (17:24)
[2019-04-01] MEDS ORDERED: Albuterol 0.083% 2.5 MG/3 ML Neb Soln NEB ONE (17:24)
[2019-04-01] MEDS: Sodium Chloride 0.9% 1,000 ML IV SCH (17:33)
--- NOTE | 2019-04-01 17:33 | EDM.PDOC ---
ED HPI GENERAL MEDICAL PROBLEM - General Stated Complaint: weakness,fall Time Seen by Provider: 04/01/19 16:20 Source of Information: Reports: Patient History Limitations: Reports: No Limitations - History of Present Illness INITIAL COMMENTS - FREE TEXT/NARRATIVE: Patient presented to the ED because of weakness,fall and near syncopal episode. He said that he is feeling weak for the past several days. He denies any abdominal pain,N/V/D but he has poor oral intake. He was feeling dizzy prior to falling down in the bathroom and landed on his right side. He c/o right shoulder and elbow pain. There is no LOC after the fall. R shoulder & elbow Pain Score (Numeric/FACES): 10 - Related Data Allergies Allergy/AdvReac Type Severity Reaction Status Date / Time No Known Allergies Allergy Verified 04/01/19 18:22 Home Meds: Home Meds Cholecalciferol (Vitamin D3) [Vitamin D3] 1,000 unit PO DAILY 06/07/15 [History] Calcitriol [Rocaltrol] 0.5 mcg PO DAILY 08/22/15 [History] Magnesium Oxide [Magnesium] 500 mg PO TID 07/23/17 [History] Sodium Bicarbonate 650 mg PO BID 07/23/17 [History] predniSONE [Prednisone] 10 mg PO DAILY 09/17/17 [History] Tacrolimus [Prograf] 0.5 mg PO BEDTIME 02/24/18 [History] Fluconazole [Diflucan] 200 mg PO DAILY 08/07/18 [History] Insulin Degludec [Tresiba Flextouch U-100] 15 units SQ DAILY 08/07/18 [History] carvediloL [Carvedilol] 6.25 mg PO BID 10/16/18 [History] Tacrolimus 1 mg DAILY 02/08/19 [History] Aspirin [Halfprin] 81 mg PO DAILY@1200 02/20/19 [History] Gabapentin [Neurontin] 100 mg PO BEDTIME 02/20/19 [History] Pantoprazole Sodium [Protonix] 40 mg PO BID 02/20/19 [History] traMADol HCl [Tramadol HCl] 50 - 100 mg PO Q8H PRN #15 tablet 03/28/19 [Rx] Past Medical History HEENT History: Reports: Impaired Vision Other HEENT History: Pt wears glasses Cardiovascular History: Reports: CAD, High Cholesterol, NE, Stents, Other (See Below) Other Cardiovascular History: viral menigitis 2016 (also "had NE 09/2017 went to [place] they put in a stent" this recorded on 09/14/17) Respiratory History: Reports: Other (See Below) Gastrointestinal History: Reports: Cholelithiasis, Colon Polyp, Diverticulosis, Hemorrhoids Genitourinary History: Reports: Renal Disease, UTI, Recurrent, Other (See Below) Other Genitourinary History: kidney transplant (2001) pts fistula was removed early may 2017 from left arm Musculoskeletal History: Reports: Back Pain, Chronic Other Musculoskeletal History: has lump on neck vein and will need it removed Neurological History: Reports: Other (See Below) Other Neuro History: Cryptococcal meningitis Psychiatric History: Reports: Addiction, Anxiety, Depression, Panic Attack, Other (See Below) Other Psychiatric History: gets mildly depressed. POST ALCOHOLIC 1998 Endocrine/Metabolic History: Reports: Diabetes, Type II, Hypoparathyroidism Hematologic History: Reports: Anemia, Blood Transfusion(s) Other Hematologic History: myelodysplastic syndrome Immunologic History: Reports: Immunosuppression, Solid Organ Transplant Other Immunologic History: kidney transplant 2001 Dermatologic History: Reports: None - Infectious Disease History Infectious Disease History: Reports: Chicken Pox, Meningitis - Past Surgical History Head Surgeries/Procedures: Reports: None Cardiovascular Surgical History: Reports: Coronary Artery Stent GI Surgical History: Reports: Appendectomy, Cholecystectomy, Colonoscopy Male Surgical History: Reports: Other (See Below) Other Male Surgeries/Procedures: kidney transplant in 2001 Endocrine Surgical History: Reports: Other (See Below) Other Endocrine Surgeries/Procedures: had thyroid removed Musculoskeletal Surgical History: Reports: Hip Replacement Other Musculoskeletal Surgeries/Procedures:: both hips-replaced Social & Family History - Family History Family Medical History: Noncontributory Cardiac: Reports: CAD, Other (See Below) Other Cardiac Family History: Brother had bypass OBGYN: Reports: Endocrine/Metabolic: Reports: Diabetes, type II - Caffeine Use Caffeine Use: Reports: Coffee Other Caffeine Use: 2-3 cups per day Caffeine Use Comment: 2-3 cups/day - Living Situation & Occupation Living situation: Reports: Alone Occupation: Disabled ED ROS GENERAL - Review of Systems Review Of Systems: See Below Constitutional: Reports: Malaise, Weakness, Fatigue, Decreased Appetite, Weight Loss. Denies: Fever, Chills HEENT: Reports: No Symptoms Respiratory: Reports: No Symptoms Cardiovascular: Reports: No Symptoms Endocrine: Reports: No Symptoms GI/Abdominal: Reports: No Symptoms : Reports: No Symptoms Musculoskeletal: Reports: No Symptoms Skin: Reports: Other (ecchymoseis on rt upper arm and elbow) Neurological: Reports: Weakness. Denies: Headache Hematologic/Lymphatic: Reports: Anemia, Easy Bleeding ED EXAM, NEURO - Physical Exam Exam: See Below Exam Limited By: No Limitations General Appearance: Alert, No Apparent Distress Eye Exam: Bilateral Eye: PERRL Ears: Normal External Exam, Normal Canal Nose: Normal Inspection, Normal Mucosa, No Blood Throat/Mouth: Normal Inspection, Normal Lips Head Exam: Atraumatic, Normocephalic Neck: Normal Inspection, Supple, Non-Tender, Full Range of Motion Respiratory/Chest: No Respiratory Distress, Lungs Clear, Normal Breath Sounds, No Accessory Muscle Use Cardiovascular: Normal Peripheral Pulses, Regular Rate, Rhythm, No Edema, No Gallop, No JVD, No Murmur GI/Abdominal: Normal Bowel Sounds, Non-Tender, No Organomegaly, No Distention, No Abnormal Bruit (Male) Exam: No Hernia, Normal Inspection Neurological: Normal Dorsiflexion, CN II-XII Intact Back Exam: Normal Inspection, Full Range of Motion Extremities: Arm Pain Skin Exam: Warm, Ecchymosis Course - Vital Signs Text/Narrative:: labs reviewed and discussed with patient and with full understanding Head CT,CXR,xray of rt shoulder and rt elbow-pending NS 1 L bolus sodium bicarb 8.4 % 50 ml IV x1 albuterol neb repeat K-pending Last Recorded V/S: Last Vital Signs Temp 37.1 C 04/01/19 16:12 Pulse 99 04/01/19 16:12 Resp 20 04/01/19 16:12 BP 67/44 L 04/01/19 16:12 Pulse Ox 83 L 04/01/19 16:12 - Orders/Labs/Meds Orders: Active Orders 24 hr Category Date Time Status EKG Documentation Completion [RC] ASDIRECTED Care 04/01/19 16:34 Active RT Aerosol Therapy [RC] ASDIRECTED Care 04/01/19 17:26 Active Chest 1V Frontal [CR] Stat Exams 04/01/19 16:33 Taken Elbow 2V Rt [CR] Stat Exams 04/01/19 17:22 Ordered Head wo Cont [CT] Stat Exams 04/01/19 16:33 Taken Shoulder Comp Rt [CR] Stat Exams 04/01/19 17:22 Ordered POTASSIUM,K [CHEM] Stat Lab 04/01/19 18:26 Ordered UA W/MICROSCOPIC [URIN] Stat Lab 04/01/19 16:35 Ordered Sodium Chloride 0.9% [Normal Saline] 1,000 ml Med 04/01/19 17:45 Active IV ASDIRECTED Sodium Chloride 0.9% [Saline Flush] Med 04/01/19 16:33 Active 10 ml FLUSH ASDIRECTED PRN Saline Lock Insert [OM.PC] Routine Oth 04/01/19 16:33 Ordered EKG 12 Lead [EK] Routine Ther 04/01/19 16:33 Ordered Medication Orders Sodium Chloride (Normal Saline) 1,000 mls @ 125 mls/hr IV ASDIRECTED LARON Last Admin: 04/01/19 17:33 Dose: 125 mls/hr Sodium Chloride (Saline Flush) 10 ml FLUSH ASDIRECTED PRN PRN Reason: Keep Vein Open Labs: Laboratory Tests 04/01/19 04/01/19 04/01/19 Range/Units 16:28 16:28 16:28 WBC 9.9 (4.5-12.0) X10-3/uL RBC 2.85 L (4.30-5.75) x10(6)uL Hgb 8.6 L (13.5-17.8) g/dL Hct 25.0 L (30.0-51.3) % MCV 87.7 (80-96) fL MCH 30.1 (27.7-33.6) pg MCHC 34.4 (32.2-35.4) g/dL RDW 13.1 (11.5-15.5) % Plt Count 51 L (125-369) X10(3)uL MPV 9.5 (7.4-10.4) fL Add Manual Diff Yes Neutrophils % (Manual) 59 (46-82) % Band Neutrophils % 5 (0-6) % Lymphocytes % (Manual) 31 (13-37) % Monocytes % (Manual) 3 L (4-12) % Metamyelocytes % 2 H (0-0) % PT 10.3 (8.7-11.1) INR 1.06 (0.89-1.13) APTT 37.7 H (24.4-33.2) SECONDS Sodium 128 L (135-145) mmol/L Potassium 5.6 H (3.5-5.3) mmol/L Chloride 92 L D (100-110) mmol/L Carbon Dioxide 31 (21-32) mmol/L BUN 41 H (7-18) mg/dL Creatinine 2.6 H* (0.70-1.30) mg/dL Est Cr Clr Drug Dosing TNP Estimated GFR (MDRD) 25 L (>60) BUN/Creatinine Ratio 15.8 (9-20) Glucose 97 D (80-116) mg/dL Calcium 8.5 L (8.6-10.2) mg/dL Total Bilirubin 0.5 (0.1-1.3) mg/dL AST 92 H D (5-25) IU/L ALT 108 H D (12-36) U/L Alkaline Phosphatase 230 H (56-112) IU/L Troponin I (<0.017-0.056) ng/mL Total Protein 6.9 (6.0-8.0) g/dL Albumin 2.4 L (3.5-5.2) g/dL Globulin 4.5 g/dL Albumin/Globulin Ratio 0.5 04/01/ Range/Units 16:28 WBC (4.5-12.0) X10-3/uL RBC (4.30-5.75) x10(6)uL Hgb (13.5-17.8) g/dL Hct (30.0-51.3) % MCV (80-96) fL MCH (27.7-33.6) pg MCHC (32.2-35.4) g/dL RDW (11.5-15.5) % Plt Count (125-369) X10(3)uL MPV (7.4-10.4) fL Add Manual Diff Neutrophils % (Manual) (46-82) % Band Neutrophils % (0-6) % Lymphocytes % (Manual) (13-37) % Monocytes % (Manual) (4-12) % Metamyelocytes % (0-0) % PT (8.7-11.1) INR (0.89-1.13) APTT (24.4-33.2) SECONDS Sodium (135-145) mmol/L Potassium (3.5-5.3) mmol/L Chloride (100-110) mmol/L Carbon Dioxide (21-32) mmol/L BUN (7-18) mg/dL Creatinine (0.70-1.30) mg/dL Est Cr Clr Drug Dosing Estimated GFR (MDRD) (>60) BUN/Creatinine Ratio (9-20) Glucose (80-116) mg/dL Calcium (8.6-10.2) mg/dL Total Bilirubin (0.1-1.3) mg/dL AST (5-25) IU/L ALT (12-36) U/L Alkaline Phosphatase (56-112) IU/L Troponin I < 0.017 L (<0.017-0.056) ng/mL Total Protein (6.0-8.0) g/dL Albumin (3.5-5.2) g/dL Globulin g/dL Albumin/Globulin Ratio Meds: Medications Generic Name Dose Route Start Last Admin Trade Name Freq PRN Reason Stop Dose Admin Sodium Chloride 1,000 mls @ 125 mls/hr 04/01/19 17:45 04/01/19 17:33 Normal Saline IV 125 mls/hr ASDIRECTED LARON Administration Sodium Chloride 10 ml 04/01/19 16:33 Saline Flush FLUSH ASDIRECTED PRN Keep Vein Open Discontinued Medications Generic Name Dose Route Start Last Admin Trade Name Freq PRN Reason Stop Dose Admin Albuterol 2.5 mg 04/01/19 17:24 04/01/19 17:47 Proventil Neb Soln NEB 04/01/19 17:25 2.5 mg ONETIME ONE Administration Sodium Chloride 1,000 mls @ 999 mls/hr 04/01/19 16:30 04/01/19 16:30 Normal Saline IV 04/01/19 17:30 999 mls/hr .BOLUS ONE Administration Sodium Bicarbonate 50 meq 04/01/19 17:24 04/01/19 17:49 Sodium Bicarbonate 8.4% IVPUSH 04/01/19 17:25 50 meq ONETIME ONE Administration Departure - Departure Time of Disposition: 18:50 Disposition: Admitted As Inpatient 65 Clinical Impression: Dehydration - Discharge Information Instructions: Dehydration, Adult Referrals: Du Andersen MD [Primary Care Provider] - - Problem List & Annotations (1) Dehydration SNOMED Code(s): 47167196 Code(s): E86.0 - DEHYDRATION Status: Acute Current Visit: Yes (2) HENOK (acute kidney injury) SNOMED Code(s): 80506882, 51065095 Code(s): N17.9 - ACUTE KIDNEY FAILURE, UNSPECIFIED Status: Acute Current Visit: No (3) Hyperkalemia SNOMED Code(s): 19931330 Code(s): E87.5 - HYPERKALEMIA Status: Acute Current Visit: No (4) Weakness SNOMED Code(s): 57304337 Code(s): R53.1 - WEAKNESS Status: Resolved Current Visit: No - My Orders Last 24 Hours: My Active Orders 04/01/19 16:33 Chest 1V Frontal [CR] Stat Head wo Cont [CT] Stat Sodium Chloride 0.9% [Saline Flush] 10 ml FLUSH ASDIRECTED PRN Saline Lock Insert [OM.PC] Routine EKG 12 Lead [EK] Routine 04/01/19 16:34 EKG Documentation Completion [RC] ASDIRECTED 04/01/19 16:35 UA W/MICROSCOPIC [URIN] Stat 04/01/19 17:22 Elbow 2V Rt [CR] Stat Shoulder Comp Rt [CR] Stat 04/01/19 17:26 RT Aerosol Therapy [RC] ASDIRECTED 04/01/19 17:45 Sodium Chloride 0.9% [Normal Saline] 1,000 ml IV ASDIRECTED 04/01/19 18:26 POTASSIUM,K [CHEM] Stat - Assessment/Plan Last 24 Hours: My Active Orders 04/01/19 16:33 Chest 1V Frontal [CR] Stat Head wo Cont [CT] Stat Sodium Chloride 0.9% [Saline Flush] 10 ml FLUSH ASDIRECTED PRN Saline Lock Insert [OM.PC] Routine EKG 12 Lead [EK] Routine 04/01/19 16:34 EKG Documentation Completion [RC] ASDIRECTED 04/01/19 16:35 UA W/MICROSCOPIC [URIN] Stat 04/01/19 17:22 Elbow 2V Rt [CR] Stat Shoulder Comp Rt [CR] Stat 04/01/19 17:26 RT Aerosol Therapy [RC] ASDIRECTED 04/01/19 17:45 Sodium Chloride 0.9% [Normal Saline] 1,000 ml IV ASDIRECTED 04/01/19 18:26 POTASSIUM,K [CHEM] Stat
[2019-04-01] MEDS ORDERED: Sodium Chloride 0.9% 1,000 ML IV SCH (19:30)
[2019-04-02] MEDS: Sodium Chloride 0.9% 1,000 ML IV SCH ×3 (00:55→22:31)
[2019-04-02] MEDS: HYDROmorphone 2 MG/ML SDV IVPUSH PRN ×2 (02:15→06:22)
[2019-04-02] MEDS ORDERED: Sodium Chloride 0.9% 250 ML IV SCH (10:00)
[2019-04-02] MEDS ORDERED: HYDROmorphone 2 MG/ML SDV IVPUSH PRN (10:00)
[2019-04-02] MEDS ORDERED: HYDROmorphone 2 MG/ML SDV IVPUSH SCH (10:45)
[2019-04-02] MEDS ORDERED: diphenhydrAMINE 50 MG Cap PO ONE (11:41)
[2019-04-02] MEDS ORDERED: Aspirin 81 MG Tab.EC *PTOM PO SCH (12:00)
--- NOTE | 2019-04-02 12:07 | HP ---
ADMISSION DATE: 04/01/2019 SUBJECTIVE: Hollis Barrera is a 58-year-old, male, admitted through [facility] by Dr. Rodri Guerrero on 04/01/2018. He has been feeling weak with recurrent falls and near-syncopal episode, fell striking his right shoulder, elbow, and left chest wall. Fell in the bathroom at home. No loss of consciousness. Seen in the emergency room. CT of head normal. X-ray of chest, elbow, and shoulder revealed no bony injury. Was admitted for intervention and care. MEDICATION ON ADMISSION: 1. Magnesium 500 mg 1 p.o. t.i.d. renal failure. 2. Tramadol 50 mg 1 to 2 q.8 hours p.r.n. for pain. 3. 81 mg of baby aspirin. 4. Calcitriol 0.25 two daily chronic renal failure. 5. Carvedilol 6.25 mg b.i.d. heart/blood pressure. 6. Vitamin D3 1000 units one daily nutrition. 7. Diflucan 200 mg one p.o. daily chronic renal failure. 8. Neurontin 100 mg p.o. at bedtime chronic pain. 9. Tresiba 15 units subcu daily NIDDM. 10.Protonix 40 mg 1 p.o. daily GERD. 11.Prednisone 5 mg two tabs daily chronic renal failure. 12.Sodium bicarbonate 650 mg one p.o. b.i.d. chronic renal failure. 13.Prograf 0.5 mg at bedtime chronic renal failure. 14.Tacrolimus 0.5 mg 1 mg 1 p.o. daily chronic renal failure. ALLERGIES: No known allergies. PAST MEDICAL HISTORY: Significant for: 1. History of kidney transplant x2, one failed, second left functioning. 2. Fistula with renal dialysis. 3. History of cholelithiasis. 4. Diverticulosis. 5. Colonic polyp. 6. Anxiety and depression. 7. Chronic pain syndrome. 8. Hypothyroidism, renal related. 9. Complicated anemia, recurrent in nature from chronic renal failure. 10.History of alcohol misuse and abuse. SOCIAL HISTORY: Lives independently, unemployed and disabled. Nonsmoker. No alcohol consumption. No vaping. No illicit drug use. REVIEW OF SYSTEMS: CONSTITUTIONAL: Feeling poorly. EYES: Sees well. EARS: Hears well. OROPHARYNX: Intact. DENTITION: Poor care. GI: Regular predictable stools, less so since less active. : Voiding comfortably. No blood in urine. RESPIRATORY: No chronic cough. CARDIOVASCULAR: Denies chest pain. SKIN: No lesions, eruptions, or moles. ENDOCRINE: No excessive thirst or urination. diabetes on board. PHYSICAL EXAMINATION: VITAL SIGNS: 70 kg 36.3, 87 is the pulse, 106/58, 74 is the mean blood pressure, and 93% on 3 L. Pain: Localized pain to shoulder, elbow, and left chest wall. GENERAL: Appears in moderate distress. Gives a good history. HEENT: Funduscopic benign. Bright TMs. Clear nasal discharge. Mouth and oropharynx clear. Tongue midline. Good gag reflex. NECK: Benign. Thyroid small. CHEST: Clear in all lung bar. No adventitious sounds. HEART: No ectopy or murmur at 64. ABDOMEN: Surgical scars well healed. Palpable kidney transplant. Surgical scars wound healed. : Normal male genitalia. Testes descended. Hernias absent. RECTAL: Deferred. EXTREMITIES: Well perfused. LABORATORY STUDIES: White count 9900, repeat 6900, hemoglobin 8.6, fell to 6.8, hematocrit 19.3, INR 1.06. Electrolytes, creatinine 2.6, 2.4. GFR 25, 28, calcium 8.5, 7.4. Mildly elevated liver enzymes. Negative troponin. Urinalysis noted moderate blood, 5 to 10 red cells, 10 to 20 white cells, culture pending. ASSESSMENT: Vasovagal syncopal episode related to anemia, weakness, and dehydration, SECONDARY DIAGNOSIS: Please see history and physical, clinical findings. PLAN: IV fluid hydration. Intervention and care treatment as appropriate. Analgesics required. X-rays of ribs will be obtained accordingly. /[id number] MARIBEL/MILES
[2019-04-02] MEDS: FLUCONAZOLE 200 MG PO SCH (12:34)
[2019-04-02] MEDS: Carvedilol 6.25 MG Tab PO SCH ×2 (12:34→20:07)
[2019-04-02] MEDS: Tacrolimus 1 MG Cap PO SCH (12:35)
[2019-04-02] MEDS: predniSONE 10 MG Tab PO SCH (12:35)
[2019-04-02] MEDS: SODIUM BICARBONATE 650 MG PO SCH ×2 (12:35→20:05)
[2019-04-02] MEDS: traMADol 50 MG Tab PO SCH ×2 (14:56→20:11)
[2019-04-02] MEDS: Tacrolimus 0.5 MG Cap PO SCH (20:04)
[2019-04-02] MEDS: Pantoprazole 40 MG Tab.CR PO SCH (20:06)
[2019-04-02] MEDS: Gabapentin 300 MG Cap PO SCH (20:06)
[2019-04-02] MEDS: Gabapentin 100 MG Cap PO SCH (20:07)
[2019-04-03] MEDS: Sodium Chloride 0.9% 1,000 ML IV SCH (05:55)
[2019-04-03] MEDS: Carvedilol 6.25 MG Tab PO SCH ×2 (08:04→20:50)
[2019-04-03] MEDS: FLUCONAZOLE 200 MG PO SCH (08:04)
[2019-04-03] MEDS: glipiZIDE 5 MG Tab PO SCH (08:05)
[2019-04-03] MEDS: Isosorbide Mononitrate 30 MG Tab.ER PO SCH (08:05)
[2019-04-03] MEDS: Gabapentin 300 MG Cap PO SCH ×2 (08:06→20:55)
[2019-04-03] MEDS: predniSONE 10 MG Tab PO SCH (08:08)
[2019-04-03] MEDS: Tacrolimus 1 MG Cap PO SCH (08:08)
[2019-04-03] MEDS: Pantoprazole 40 MG Tab.CR PO SCH ×2 (08:08→20:56)
[2019-04-03] MEDS: SODIUM BICARBONATE 650 MG PO SCH (08:09)
[2019-04-03] MEDS: traMADol 50 MG Tab PO SCH ×3 (08:14→20:56)
[2019-04-03] MEDS ORDERED: Cholecalciferol (Vitamin D3) 25 MCG Tab *PTOM PO SCH (09:00)
[2019-04-03] MEDS ORDERED: CALCITRIOL 0.5 MG PO SCH (09:00)
--- NOTE | 2019-04-03 09:12 | PCM.PN ---
- General Info Date of Service: 04/03/19 Subjective Update: We'll just admitted for dehydration, and weakness. He seems to improved today. He complains of generalized pain especially in the shoulders and neck. This is a chronic pain that he's had for long time. Functional Status: Reports: Tolerating Diet. Denies: Pain Controlled, Ambulating - Review of Systems General: Reports: Weakness HEENT: Reports: No Symptoms Pulmonary: Reports: No Symptoms Cardiovascular: Reports: No Symptoms Gastrointestinal: Reports: No Symptoms Genitourinary: Reports: No Symptoms - Patient Data Vitals - Most Recent: Last Vital Signs Temp 98.1 F 04/02/19 23:59 Pulse 65 04/03/19 08:04 Resp 18 04/02/19 23:59 BP 145/88 H 04/03/19 08:05 Pulse Ox 98 04/03/19 00:00 Weight - Most Recent: 72.484 kg I&O - Last 24 Hours: Intake & Output 04/02/19 04/03/19 04/03/19 22:59 06:59 14:59 Intake Total 1228 275 Output Total 400 1050 Balance 828 -775 Lab Results Last 24 Hours: Laboratory Results - last 24 hr 04/02/19 04/02/19 04/03/19 Range/Units 06:20 16:02 08:30 WBC 5.4 (4.5-12.0) X10-3/uL RBC 2.84 L (4.30-5.75) x10(6)uL Hgb 8.5 L (13.5-17.8) g/dL Hct 24.9 L (30.0-51.3) % MCV 87.9 (80-96) fL MCH 29.9 (27.7-33.6) pg MCHC 34.0 (32.2-35.4) g/dL RDW 13.3 (11.5-15.5) % Plt Count 42 L (125-369) X10(3)uL MPV 9.2 (7.4-10.4) fL Neut % (Auto) 68.9 (46-82) % Lymph % (Auto) 10.8 L (13-37) % [place] % (Auto) 15.0 H (4-12) % Eos % (Auto) 2 (1.0-5.0) % Baso % (Auto) 4 H (0-2) % Neut # (Auto) 3.7 (1.6-8.3) # Lymph # (Auto) 0.6 (0.6-5.0) # [place] # (Auto) 0.8 (0.0-1.3) # Eos # (Auto) 0.1 (0.0-0.8) # Baso # (Auto) 0.2 (0.0-0.2) # POC Glucose 96 (80-116) mg/dL Blood Type O POSITIVE Gel Antibody Screen Negative Crossmatch See Detail Adria Results Last 24 Hours: Microbiology 04/01/19 19:28 Urine Culture - Preliminary Urine, Clean Catch NO GROWTH AFTER 1 DAY Med Orders - Current: Current Medications Aspirin (Halfprin) 81 mg PO DAILY@1200 [facility] Last Admin: 04/02/19 12:36 Dose: 81 mg Carvedilol (Coreg) 6.25 mg PO BID [facility] Last Admin: 04/03/19 08:04 Dose: 6.25 mg Cholecalciferol (Vitamin D3) 25 mcg PO DAILY [facility] Last Admin: 04/03/19 08:10 Dose: 25 mcg Gabapentin (Neurontin) 100 mg PO BEDTIME [facility] Last Admin: 04/02/19 20:07 Dose: 100 mg Gabapentin (Neurontin) 300 mg PO BID [facility] Last Admin: 04/03/19 08:06 Dose: 300 mg Glipizide (Glucotrol) 5 mg PO DAILY [facility] Last Admin: 04/03/19 08:05 Dose: 5 mg Hydromorphone HCl (Dilaudid) 1 mg IVPUSH Q2H PRN PRN Reason: Pain Sodium Chloride (Normal Saline) 1,000 mls @ 125 mls/hr IV ASDIRECTED [facility] Last Admin: 04/03/19 05:55 Dose: 125 mls/hr Isosorbide Mononitrate (Imdur) 30 mg PO DAILY [facility] Last Admin: 04/03/19 08:05 Dose: 30 mg Calcitriol 0.5 Mg * (Ptom) 0 each PO DAILY [facility] Last Admin: 04/03/19 08:06 Dose: 0.5 each (Fluconazole [ Diflucan] 200 Mg) * Ptom 200 mg PO DAILY [facility] Last Admin: 04/03/19 08:04 Dose: 200 mg Non-Formulary Medication (Insulin Degludec [Tresiba Flextouch U-100]) 15 units SQ DAILY [facility] Pantoprazole Sodium (Protonix) 40 mg PO BID [facility] Last Admin: 04/03/19 08:08 Dose: 40 mg Potassium Chloride (Klor-Con M20) 40 meq PO BID [facility] Prednisone (Prednisone) 10 mg PO DAILY [facility] Last Admin: 04/03/19 08:08 Dose: 10 mg Sodium Bicarbonate (Sodium Bicarbonate) 650 mg PO BID [facility] Last Admin: 04/03/19 08:09 Dose: 650 mg Sodium Chloride (Saline Flush) 10 ml FLUSH ASDIRECTED PRN PRN Reason: Keep Vein Open Tacrolimus (Prograf) 0.5 mg PO BEDTIME [facility] Last Admin: 04/02/19 20:04 Dose: 0.5 mg Tacrolimus (Prograf) 1 mg PO DAILY [facility] Last Admin: 04/03/19 08:08 Dose: 1 mg Tramadol HCl (Ultram) 50 mg PO TID [facility] Last Admin: 04/03/19 08:14 Dose: 50 mg Discontinued Medications Albuterol (Proventil Neb Soln) 2.5 mg NEB ONETIME ONE Stop: 04/01/19 17:25 Last Admin: 04/01/19 17:47 Dose: 2.5 mg Diphenhydramine HCl (Benadryl) 50 mg PO ONETIME ONE Stop: 04/02/19 11:42 Last Admin: 04/02/19 12:36 Dose: 50 mg Hydromorphone HCl (Dilaudid) 0.5 mg IVPUSH Q2H PRN PRN Reason: Pain (severe 7-10) Last Admin: 04/02/19 06:22 Dose: 0.5 mg Sodium Chloride (Normal Saline) 1,000 mls @ 999 mls/hr IV .BOLUS ONE Stop: 04/01/19 17:30 Last Admin: 04/01/19 16:30 Dose: 999 mls/hr Sodium Chloride (Normal Saline) 1,000 mls @ 125 mls/hr IV ASDIRECTED [facility] Sodium Chloride (Normal Saline) 250 mls @ 100 mls/hr IV ASDIRECTED [facility] Sodium Bicarbonate (Sodium Bicarbonate 8.4%) 50 meq IVPUSH ONETIME ONE Stop: 04/01/19 17:25 Last Admin: 04/01/19 17:49 Dose: 50 meq - Exam Quality Assessment: Supplemental Oxygen General: Alert, Oriented Neck: Supple Lungs: Clear to Auscultation GI/Abdominal Exam: Normal Bowel Sounds, Soft, Distended Back Exam: Normal Inspection Extremities: Normal Inspection, Limited Range of Motion Skin: Warm Neurological: No New Focal Deficit - Problem List & Annotations (1) Hypokalemia SNOMED Code(s): 10654824 Code(s): E87.6 - HYPOKALEMIA Status: Acute Current Visit: Yes (2) Dehydration SNOMED Code(s): 44547583 Code(s): E86.0 - DEHYDRATION Status: Acute Current Visit: Yes (3) Anemia SNOMED Code(s): 440178165 Code(s): D64.9 - ANEMIA, UNSPECIFIED Status: Acute Current Visit: No Qualifiers: Anemia type: due to chronic kidney disease Chronic kidney disease stage: stage 3 (moderate) Qualified Code(s): N18.3 - Chronic kidney disease, stage 3 (moderate); D63.1 - Anemia in chronic kidney disease Annotation/Comment:: See Renal Transplant provider tomorrow regarding managment of chronic anemia. (4) Back pain SNOMED Code(s): 050302445 Code(s): M54.9 - DORSALGIA, UNSPECIFIED Status: Acute Current Visit: No Qualifiers: Back pain location: back pain in unspecified location Chronicity: unspecified Back pain laterality: midline Qualified Code(s): M54.89 - Other dorsalgia Annotation/Comment:: I dispensed Tramadol 50 mg q 6hrs prn for breakthrough pain. (5) Chronic pain SNOMED Code(s): 95117322 Code(s): G89.29 - OTHER CHRONIC PAIN Status: Acute Current Visit: No Qualifiers: Chronic pain type: other chronic pain Qualified Code(s): G89.29 - Other chronic pain (6) Diabetes type 2, controlled SNOMED Code(s): 63016768, 742778763 Code(s): E11.9 - TYPE 2 DIABETES MELLITUS WITHOUT COMPLICATIONS Status: Acute Current Visit: No Qualifiers: Diabetes mellitus terminal operations manager insulin use: without nursing home use Diabetes mellitus complication status: with kidney complications Chronic kidney disease stage: stage 2 (mild) (7) MDS (myelodysplastic syndrome) with 5q deletion SNOMED Code(s): 989583892 Code(s): D46.C - MYELODYSPLASTIC SYNDROME W ISOLATED DEL(5Q) CHROMSOML ABNLT Status: Acute Current Visit: No (8) Neck muscle spasm SNOMED Code(s): 135435523892 Code(s): M62.838 - OTHER MUSCLE SPASM Status: Acute Current Visit: No (9) Shoulder pain, right SNOMED Code(s): 49780501, 50580427 Code(s): M25.511 - PAIN IN RIGHT SHOULDER Status: Acute Current Visit: No (10) Weakness SNOMED Code(s): 40051431 Code(s): R53.1 - WEAKNESS Status: Resolved Current Visit: No - Problem List Review Problem List Initiated/Reviewed/Updated: Yes - My Orders Last 24 Hours: My Active Orders 04/03/19 09:15 Potassium Chloride [Klor-Con M20] 40 meq PO BID 04/04/19 05:11 BASIC METABOLIC PANEL,BMP [CHEM] AM CBC WITH AUTO DIFF [HEME] AM - Plan Plan:: Got 2 units of PRBCs yesterday, his hemoglobin up to 8.5 this morning. His potassium still low at 2.4. I will replace orally, discontinue IV fluids, and tele.Change to inpatient,and repeat labs in AM.Also control his pain Dilaudid when necessary. I've also consulted physical and occupational therapy.
[2019-04-03] MEDS: Aspirin 81 MG Tab.EC PO SCH (11:37)
[2019-04-03] MEDS: Potassium Chloride 20 MEQ Tab.ER PO SCH ×2 (11:37→20:55)
[2019-04-03] MEDS: Insulin Glargine,Human Rec. Analog 100 Units/ML 3 ML Pen SUBCUT SCH (11:41)
[2019-04-03] MEDS: Gabapentin 100 MG Cap PO SCH (20:55)
[2019-04-03] MEDS: Tacrolimus 0.5 MG Cap PO SCH (20:56)
[2019-04-03] MEDS: Sodium Bicarbonate 650 MG Tab PO SCH (20:56)
[2019-04-04] MEDS: Tacrolimus 1 MG Cap PO SCH (08:29)
[2019-04-04] MEDS: Carvedilol 6.25 MG Tab PO SCH (08:29)
[2019-04-04] MEDS: glipiZIDE 5 MG Tab PO SCH (08:30)
[2019-04-04] MEDS: Pantoprazole 40 MG Tab.CR PO SCH (08:30)
[2019-04-04] MEDS: predniSONE 10 MG Tab PO SCH (08:31)
[2019-04-04] MEDS: Isosorbide Mononitrate 30 MG Tab.ER PO SCH (08:31)
[2019-04-04 08:32] VITALS: BP 173/96; PULSE 70
[2019-04-04] MEDS: Sodium Bicarbonate 650 MG Tab PO SCH (08:34)
[2019-04-04] MEDS: Insulin Glargine,Human Rec. Analog 100 Units/ML 3 ML Pen SUBCUT SCH (08:38)
[2019-04-04] MEDS: traMADol 50 MG Tab PO SCH ×2 (08:42→12:09)
[2019-04-04] MEDS: Gabapentin 300 MG Cap PO SCH (08:43)
--- NOTE | 2019-04-04 08:51 | PCM.DCSUM1 ---
Discharge Summary - Hospital Course Free Text/Narrative:: Hollis was admitted with anemia, acute renal failure secondary to dehydration and hypovolemia. He received 2 units of PRBCs, and some IV fluids. His symptoms have improved he has chronic neck and shoulder pain, for which physical therapy saw him he feels ready to go home today. Diagnosis: Stroke: No - Discharge Data Discharge Date: 04/04/19 Discharge Disposition: Home, Self-Care 01 Condition: Stable - Referral to Home Health Primary Care Physician: Du Andersen MD - Discharge Diagnosis/Problem(s) (1) Hypokalemia SNOMED Code(s): 85764772 ICD Code: E87.6 - HYPOKALEMIA Status: Acute Current Visit: Yes (2) Dehydration SNOMED Code(s): 97902734 ICD Code: E86.0 - DEHYDRATION Status: Acute Current Visit: Yes (3) Anemia SNOMED Code(s): 731327082 ICD Code: D64.9 - ANEMIA, UNSPECIFIED Status: Acute Current Visit: No Problem Details: See Renal Transplant provider tomorrow regarding managment of chronic anemia. Qualifiers: Anemia type: due to chronic kidney disease Chronic kidney disease stage: stage 3 (moderate) Qualified Code(s): N18.3 - Chronic kidney disease, stage 3 (moderate); D63.1 - Anemia in chronic kidney disease (4) Back pain SNOMED Code(s): 927745498 ICD Code: M54.9 - DORSALGIA, UNSPECIFIED Status: Acute Current Visit: No Problem Details: I dispensed Tramadol 50 mg q 6hrs prn for breakthrough pain. Qualifiers: Back pain location: back pain in unspecified location Chronicity: unspecified Back pain laterality: midline Qualified Code(s): M54.89 - Other dorsalgia (5) Chronic pain SNOMED Code(s): 52732492 ICD Code: G89.29 - OTHER CHRONIC PAIN Status: Acute Current Visit: No Qualifiers: Chronic pain type: other chronic pain Qualified Code(s): G89.29 - Other chronic pain (6) Diabetes type 2, controlled SNOMED Code(s): 95672148, 823036973 ICD Code: E11.9 - TYPE 2 DIABETES MELLITUS WITHOUT COMPLICATIONS Status: Acute Current Visit: No Qualifiers: Diabetes mellitus continuous churn buttermaker insulin use: without continuous churn buttermaker use Diabetes mellitus complication status: with kidney complications Chronic kidney disease stage: stage 2 (mild) (7) MDS (myelodysplastic syndrome) with 5q deletion SNOMED Code(s): 595122020 ICD Code: D46.C - MYELODYSPLASTIC SYNDROME W ISOLATED DEL(5Q) CHROMSOML ABNLT Status: Acute Current Visit: No (8) Neck muscle spasm SNOMED Code(s): 681149928772 ICD Code: M62.838 - OTHER MUSCLE SPASM Status: Acute Current Visit: No (9) Shoulder pain, right SNOMED Code(s): 84112859, 01492602 ICD Code: M25.511 - PAIN IN RIGHT SHOULDER Status: Acute Current Visit: No (10) Weakness SNOMED Code(s): 59188520 ICD Code: R53.1 - WEAKNESS Status: Resolved Current Visit: No - Patient Summary/Data Consults: Consultations 04/01/19 19:21 OT Evaluation and Treatment [CONS] Routine Please Evaluate and Treat. OT Reason for Consult: ADL's This query below is only for informational purposes and is not editable. PT Evaluation and Treatment [CONS] Routine Please Evaluate and Treat. PT Reason for Consult: Ambulation This query below is only for informational purposes and is not editable. - Discharge Plan Home Medications: Home Meds Cholecalciferol (Vitamin D3) [Vitamin D3] 1,000 unit PO DAILY 06/07/15 [History] Calcitriol [Rocaltrol] 0.5 mcg PO DAILY 08/22/15 [History] Magnesium Oxide [Magnesium] 500 mg PO TID 07/23/17 [History] Sodium Bicarbonate 650 mg PO BID 07/23/17 [History] predniSONE [Prednisone] 10 mg PO DAILY 09/17/17 [History] Tacrolimus [Prograf] 0.5 mg PO BEDTIME 02/24/18 [History] Fluconazole [Diflucan] 200 mg PO DAILY 08/07/18 [History] Insulin Degludec [Tresiba Flextouch U-100] 15 units SQ DAILY 08/07/18 [History] carvediloL [Carvedilol] 6.25 mg PO BID 10/16/18 [History] Tacrolimus 1 mg DAILY 02/08/19 [History] Aspirin [Halfprin] 81 mg PO DAILY@1200 02/20/19 [History] Gabapentin [Neurontin] 100 mg PO BEDTIME 02/20/19 [History] Pantoprazole Sodium [Protonix] 40 mg PO BID 02/20/19 [History] traMADol HCl [Tramadol HCl] 50 - 100 mg PO Q8H PRN #15 tablet 03/28/19 [Rx] Gabapentin [Neurontin] 300 mg PO BID 04/02/19 [History] Isosorbide Mononitrate [Imdur] 30 mg PO DAILY 04/02/19 [History] glipiZIDE [Glucotrol] 5 mg PO DAILY 04/02/19 [History] Patient Handouts: Dehydration, Adult Forms: ED Department Discharge Referrals: Du Andersen MD [Primary Care Provider] - 04/14/19 - Discharge Summary/Plan Comment DC Time >30 min.: Yes - General Info Date of Service: 04/04/19 Subjective Update: Hollis is off oxygen, and feels strongtoday. Functional Status: Reports: Pain Controlled, Tolerating Diet - Review of Systems General: Reports: No Symptoms HEENT: Reports: No Symptoms Pulmonary: Reports: No Symptoms Cardiovascular: Reports: No Symptoms Gastrointestinal: Reports: No Symptoms Genitourinary: Reports: No Symptoms Musculoskeletal: Reports: Neck Pain, Shoulder Pain Neurological: Reports: No Symptoms Psychiatric: Reports: No Symptoms - Patient Data Vitals - Most Recent: Last Vital Signs Temp 97.6 F 04/04/19 00:00 Pulse 70 04/04/19 08:29 Resp 18 04/04/19 00:00 BP 173/96 H 04/04/19 08:31 Pulse Ox 94 L 04/04/19 00:00 Weight - Most Recent: 72.212 kg I&O - Last 24 hours: Intake & Output 04/03/19 04/04/19 04/04/19 22:59 06:59 14:59 Intake Total 300 Output Total 1300 Balance -1000 Lab Results - Last 24 hrs: Laboratory Results - last 24 hr 04/03/19 04/03/19 04/04/19 Range/Units 08:30 11:41 06:10 WBC 5.4 4.3 L (4.5-12.0) X10-3/uL RBC 2.84 L 2.95 L (4.30-5.75) x10(6)uL Hgb 8.5 L 8.9 L (13.5-17.8) g/dL Hct 24.9 L 26.6 L (30.0-51.3) % MCV 87.9 90.2 (80-96) fL MCH 29.9 30.1 (27.7-33.6) pg MCHC 34.0 33.4 (32.2-35.4) g/dL RDW 13.3 13.7 (11.5-15.5) % Plt Count 42 L 37 L (125-369) X10(3)uL MPV 9.2 9.2 (7.4-10.4) fL Neut % (Auto) 68.9 59.9 (46-82) % Lymph % (Auto) 10.8 L 12.7 L (13-37) % [place] % (Auto) 15.0 H 19.7 H (4-12) % Eos % (Auto) 2 3 (1.0-5.0) % Baso % (Auto) 4 H 5 H (0-2) % Neut # (Auto) 3.7 2.5 (1.6-8.3) # Lymph # (Auto) 0.6 0.6 (0.6-5.0) # [place] # (Auto) 0.8 0.9 (0.0-1.3) # Eos # (Auto) 0.1 0.1 (0.0-0.8) # Baso # (Auto) 0.2 0.2 (0.0-0.2) # Sodium (135-145) mmol/L Potassium (3.5-5.3) mmol/L Chloride (100-110) mmol/L Carbon Dioxide (21-32) mmol/L BUN (7-18) mg/dL Creatinine (0.70-1.30) mg/dL Est Cr Clr Drug Dosing mL/min Estimated GFR (MDRD) (>60) BUN/Creatinine Ratio (9-20) Glucose (80-116) mg/dL POC Glucose 256 H D (80-116) mg/dL Calcium (8.6-10.2) mg/dL 04/04/19 Range/Units 06:10 WBC (4.5-12.0) X10-3/uL RBC (4.30-5.75) x10(6)uL Hgb (13.5-17.8) g/dL Hct (30.0-51.3) % MCV (80-96) fL MCH (27.7-33.6) pg MCHC (32.2-35.4) g/dL RDW (11.5-15.5) % Plt Count (125-369) X10(3)uL MPV (7.4-10.4) fL Neut % (Auto) (46-82) % Lymph % (Auto) (13-37) % [place] % (Auto) (4-12) % Eos % (Auto) (1.0-5.0) % Baso % (Auto) (0-2) % Neut # (Auto) (1.6-8.3) # Lymph # (Auto) (0.6-5.0) # [place] # (Auto) (0.0-1.3) # Eos # (Auto) (0.0-0.8) # Baso # (Auto) (0.0-0.2) # Sodium 136 (135-145) mmol/L Potassium 5.4 H (3.5-5.3) mmol/L Chloride 102 (100-110) mmol/L Carbon Dioxide 30 (21-32) mmol/L BUN 36 H (7-18) mg/dL Creatinine 1.7 H (0.70-1.30) mg/dL Est Cr Clr Drug Dosing 42.22 mL/min Estimated GFR (MDRD) 41 L (>60) BUN/Creatinine Ratio 21.2 H (9-20) Glucose 253 H D (80-116) mg/dL POC Glucose (80-116) mg/dL Calcium 7.9 L (8.6-10.2) mg/dL MARGARET Results - Last 24 hrs: Microbiology 04/01/19 19:28 Urine Culture - Final Urine, Clean Catch NO GROWTH AFTER 2 DAYS Med Orders - Current: Current Medications Aspirin (Halfprin) 81 mg PO DAILY@1200 [facility] Last Admin: 04/03/19 11:37 Dose: 81 mg Calcitriol (Rocaltrol) 0.5 mcg PO DAILY [facility] Last Admin: 04/04/19 08:33 Dose: 0.5 mcg Carvedilol (Coreg) 6.25 mg PO BID [facility] Last Admin: 04/04/19 08:29 Dose: 6.25 mg Cholecalciferol (Vitamin D3) 25 mcg PO DAILY [facility] Last Admin: 04/04/19 08:34 Dose: 25 mcg Fluconazole (Diflucan) 200 mg PO DAILY [facility] Last Admin: 04/04/19 08:33 Dose: 200 mg Gabapentin (Neurontin) 100 mg PO BEDTIME [facility] Last Admin: 04/03/19 20:55 Dose: 100 mg Gabapentin (Neurontin) 300 mg PO BID [facility] Last Admin: 04/04/19 08:43 Dose: 300 mg Glipizide (Glucotrol) 5 mg PO DAILY [facility] Last Admin: 04/04/19 08:30 Dose: 5 mg Insulin Glargine (Lantus Solostar) 15 units SUBCUT DAILY [facility] Last Admin: 04/04/19 08:38 Dose: 15 units Isosorbide Mononitrate (Imdur) 30 mg PO DAILY [facility] Last Admin: 04/04/19 08:31 Dose: 30 mg Pantoprazole Sodium (Protonix) 40 mg PO BID [facility] Last Admin: 04/04/19 08:30 Dose: 40 mg Prednisone (Prednisone) 10 mg PO DAILY [facility] Last Admin: 04/04/19 08:31 Dose: 10 mg Sodium Bicarbonate (Sodium Bicarbonate) 650 mg PO BID [facility] Last Admin: 04/04/19 08:34 Dose: 650 mg Sodium Chloride (Saline Flush) 10 ml FLUSH ASDIRECTED PRN PRN Reason: Keep Vein Open Tacrolimus (Prograf) 0.5 mg PO BEDTIME [facility] Last Admin: 04/03/19 20:56 Dose: 0.5 mg Tacrolimus (Prograf) 1 mg PO DAILY [facility] Last Admin: 04/04/19 08:29 Dose: 1 mg Tramadol HCl (Ultram) 50 mg PO TID [facility] Last Admin: 04/04/19 08:42 Dose: 50 mg Discontinued Medications Albuterol (Proventil Neb Soln) 2.5 mg NEB ONETIME ONE Stop: 04/01/19 17:25 Last Admin: 04/01/19 17:47 Dose: 2.5 mg Aspirin (Halfprin) 81 mg PO DAILY@1200 [facility] Last Admin: 04/02/19 12:36 Dose: 81 mg Cholecalciferol (Vitamin D3) 25 mcg PO DAILY [facility] Last Admin: 04/03/19 08:10 Dose: 25 mcg Diphenhydramine HCl (Benadryl) 50 mg PO ONETIME ONE Stop: 04/02/19 11:42 Last Admin: 04/02/19 12:36 Dose: 50 mg Hydromorphone HCl (Dilaudid) 0.5 mg IVPUSH Q2H PRN PRN Reason: Pain (severe 7-10) Last Admin: 04/02/19 06:22 Dose: 0.5 mg Hydromorphone HCl (Dilaudid) 1 mg IVPUSH Q2H PRN PRN Reason: Pain Sodium Chloride (Normal Saline) 1,000 mls @ 125 mls/hr IV ASDIRECTED [facility] Last Admin: 04/03/19 05:55 Dose: 125 mls/hr Sodium Chloride (Normal Saline) 1,000 mls @ 999 mls/hr IV .BOLUS ONE Stop: 04/01/19 17:30 Last Admin: 04/01/19 16:30 Dose: 999 mls/hr Sodium Chloride (Normal Saline) 1,000 mls @ 125 mls/hr IV ASDIRECTED [facility] Sodium Chloride (Normal Saline) 250 mls @ 100 mls/hr IV ASDIRECTED [facility] Calcitriol 0.5 Mg * (Ptom) 0 each PO DAILY [facility] Last Admin: 04/03/19 08:06 Dose: 0.5 each (Fluconazole [ Diflucan] 200 Mg) * Ptom 200 mg PO DAILY [facility] Last Admin: 04/03/19 08:04 Dose: 200 mg Potassium Chloride (Klor-Con M20) 40 meq PO BID [facility] Last Admin: 04/03/19 20:55 Dose: 40 meq Sodium Bicarbonate (Sodium Bicarbonate 8.4%) 50 meq IVPUSH ONETIME ONE Stop: 04/01/19 17:25 Last Admin: 04/01/19 17:49 Dose: 50 meq Sodium Bicarbonate (Sodium Bicarbonate) 650 mg PO BID [facility] Last Admin: 04/03/19 08:09 Dose: 650 mg - Exam General: Reports: Alert, Oriented HEENT: Reports: Pupils Equal Lungs: Reports: Clear to Auscultation Cardiovascular: Reports: Regular Rate Extremities: Normal Inspection Skin: Reports: Warm, Dry
[2019-04-04] MEDS ORDERED: Fluconazole 100 MG Tab PO SCH (09:00)
[2019-04-04] MEDS ORDERED: Calcitriol 0.25 MCG Cap PO SCH (09:00)
[2019-04-04] MEDS ORDERED: Cholecalciferol (Vitamin D3) 25 MCG Tab PO SCH (09:00)
[2019-04-04] MEDS: Aspirin 81 MG Tab.EC PO SCH (12:06)
== END 2019-04-04 12:40 | disposition home or self-care (01) | DRG 699 ==
LOC: FB.ED 16:12 → FB.MS 19:54 → OBSVTOIN 04-03 10:15
PROVIDERS: ADMIT Family Medicine; ATTEND Family Medicine
PROC: 30233N1 Transfusion of Nonautologous Red Blood Cells into Peripheral Vein, Percutaneous Approach (ICD-10-PCS; principal; 2019-04-03)
DX: N18.9 Chronic kidney disease, unspecified (principal); T86.19 Other complication of kidney transplant; R55 Syncope and collapse; N17.9 Acute kidney failure, unspecified; D46.C Myelodysplastic syndrome with isolated del(5q) chromosomal abnormality; K57.90 Diverticulosis of intestine, part unspecified, without perforation or abscess without bleeding; E86.0 Dehydration; E87.6 Hypokalemia; E86.1 Hypovolemia; E03.8 Other specified hypothyroidism; F10.21 Alcohol dependence, in remission; D63.1 Anemia in chronic kidney disease; G89.29 Other chronic pain; M54.9 Dorsalgia, unspecified; D46.9 Myelodysplastic syndrome, unspecified; N18.3 Chronic kidney disease, stage 3 (moderate); M54.5 Low back pain; Z79.82 Long term (current) use of aspirin; Z79.52 Long term (current) use of systemic steroids; E03.9 Hypothyroidism, unspecified; E11.22 Type 2 diabetes mellitus with diabetic chronic kidney disease; M62.838 Other muscle spasm; M25.511 Pain in right shoulder; F41.9 Anxiety disorder, unspecified; F32.9 Major depressive disorder, single episode, unspecified; G89.4 Chronic pain syndrome; H54.7 Unspecified visual loss; I25.10 Atherosclerotic heart disease of native coronary artery without angina pectoris; E78.00 Pure hypercholesterolemia, unspecified; R29.6 Repeated falls; W19.XXXA Unspecified fall, initial encounter; F41.0 Panic disorder [episodic paroxysmal anxiety]; E20.9 Hypoparathyroidism, unspecified; Z96.643 Presence of artificial hip joint, bilateral; Z87.440 Personal history of urinary (tract) infections; Z79.4 Long term (current) use of insulin; Z79.899 Other long term (current) drug therapy; Z86.010 Personal history of colon polyps; I25.2 Old myocardial infarction; Z95.5 Presence of coronary angioplasty implant and graft; Z90.49 Acquired absence of other specified parts of digestive tract; Y92.002 Bathroom of unspecified non-institutional (private) residence as the place of occurrence of the external cause
CPT/HCPCS: 36415 ×3; 36430; 70450; 71045; 71101; 73020; 73080; 80048; 80053; 81001; 82962 ×2; 84132; 84484; 85025 ×3; 85610; 85730; 86850; 86900; 86901; 86920; 86922; 87086; 93005; 94640; 96374; 99284; 99285; A9270 ×28; J1170 ×2; J7030 ×6; P9016 ×2; 97161-GP; 97530-GP; J1815-GY

== ENCOUNTER 2019-04-06 12:46 | Observation (INO) | payer MEDICARE, MEDICAID ==
--- NOTE | 2019-04-06 13:32 | EDM.PDOC ---
ED HPI GENERAL MEDICAL PROBLEM - General Chief Complaint: General Stated Complaint: LLQ Pain Time Seen by Provider: 04/06/19 13:20 Source of Information: Reports: Patient, Old Records History Limitations: Reports: No Limitations - History of Present Illness INITIAL COMMENTS - FREE TEXT/NARRATIVE: Hollis returns to [facility] ED with a 24 hour hx of LLQ pain, sharp at times, with some radiation into the upper abdomen. There is no radiation to the back, pelvis , or lower extremities. He has had a semiformed stool about an hour ago, without discoloration, mucous, or foul smell. There are no voiding sxs. There is no loss of appetite, nausea, or rash. He has tried no meds. LLQ Pain Score (Numeric/FACES): 10 - Related Data Allergies Allergy/AdvReac Type Severity Reaction Status Date / Time No Known Allergies Allergy Verified 04/01/19 18:22 Home Meds: Home Meds Cholecalciferol (Vitamin D3) [Vitamin D3] 1,000 unit PO DAILY 06/07/15 [History] Calcitriol [Rocaltrol] 0.5 mcg PO DAILY 08/22/15 [History] Magnesium Oxide [Magnesium] 500 mg PO TID 07/23/17 [History] Sodium Bicarbonate 650 mg PO BID 07/23/17 [History] predniSONE [Prednisone] 10 mg PO DAILY 09/17/17 [History] Tacrolimus [Prograf] 0.5 mg PO BEDTIME 02/24/18 [History] Fluconazole [Diflucan] 200 mg PO DAILY 08/07/18 [History] Insulin Degludec [Tresiba Flextouch U-100] 15 units SQ DAILY 08/07/18 [History] carvediloL [Carvedilol] 6.25 mg PO BID 10/16/18 [History] Tacrolimus 1 mg DAILY 02/08/19 [History] Aspirin [Halfprin] 81 mg PO DAILY@1200 02/20/19 [History] Gabapentin [Neurontin] 100 mg PO BEDTIME 02/20/19 [History] Pantoprazole Sodium [Protonix] 40 mg PO BID 02/20/19 [History] traMADol HCl [Tramadol HCl] 50 - 100 mg PO Q8H PRN #15 tablet 03/28/19 [Rx] Gabapentin [Neurontin] 300 mg PO BID 11/21/19 [History] Isosorbide Mononitrate [Imdur] 30 mg PO DAILY 04/02/19 [History] glipiZIDE [Glucotrol] 5 mg PO DAILY 04/02/19 [History] Past Medical History HEENT History: Reports: Impaired Vision Other HEENT History: Pt wears glasses Cardiovascular History: Reports: CAD, High Cholesterol, NH, Stents, Other (See Below) Other Cardiovascular History: viral menigitis 2015 (also "had NH 09/2017 went to [place] they put in a stent" this recorded on 09/14/17) Respiratory History: Reports: Other (See Below) Gastrointestinal History: Reports: Cholelithiasis, Colon Polyp, Diverticulosis, Hemorrhoids Genitourinary History: Reports: Renal Disease, UTI, Recurrent, Other (See Below) Other Genitourinary History: kidney transplant (2001) pts fistula was removed early may 2017 from left arm Musculoskeletal History: Reports: Back Pain, Chronic Other Musculoskeletal History: has lump on neck vein and will need it removed Neurological History: Reports: Other (See Below) Other Neuro History: Cryptococcal meningitis Psychiatric History: Reports: Addiction, Anxiety, Depression, Panic Attack, Other (See Below) Other Psychiatric History: gets mildly depressed. POST ALCOHOLIC 1998 Endocrine/Metabolic History: Reports: Diabetes, Type II, Hypoparathyroidism Hematologic History: Reports: Anemia, Blood Transfusion(s) Other Hematologic History: myelodysplastic syndrome Immunologic History: Reports: Immunosuppression, Solid Organ Transplant Other Immunologic History: kidney transplant 2001 Dermatologic History: Reports: None - Infectious Disease History Infectious Disease History: Reports: Chicken Pox, Meningitis - Past Surgical History Head Surgeries/Procedures: Reports: None Cardiovascular Surgical History: Reports: Coronary Artery Stent GI Surgical History: Reports: Appendectomy, Cholecystectomy, Colonoscopy Male Surgical History: Reports: Other (See Below) Other Male Surgeries/Procedures: kidney transplant in 2001 Endocrine Surgical History: Reports: Other (See Below) Other Endocrine Surgeries/Procedures: had thyroid removed Musculoskeletal Surgical History: Reports: Hip Replacement Other Musculoskeletal Surgeries/Procedures:: both hips-replaced Social & Family History - Family History Family Medical History: Noncontributory Cardiac: Reports: CAD, Other (See Below) Other Cardiac Family History: Brother had bypass OBGYN: Reports: Endocrine/Metabolic: Reports: Diabetes, type II - Caffeine Use Caffeine Use: Reports: Coffee Other Caffeine Use: 2-3 cups per day Caffeine Use Comment: 2-3 cups/day - Recreational Drug Use Recreational Drug Use: Yes Recreational Drug Type: Reports: Marijuana/Hashish Recreational Drug Use Frequency: Monthly - Living Situation & Occupation Living situation: Reports: Alone Occupation: Disabled ED ROS GENERAL - Review of Systems Review Of Systems: See Below Constitutional: Reports: No Symptoms HEENT: Reports: No Symptoms Respiratory: Reports: No Symptoms Cardiovascular: Reports: No Symptoms Endocrine: Reports: No Symptoms GI/Abdominal: Reports: Abdominal Pain, Diarrhea (semiformed) : Reports: No Symptoms Musculoskeletal: Reports: Shoulder Pain Skin: Reports: No Symptoms Neurological: Reports: No Symptoms Psychiatric: Reports: No Symptoms Hematologic/Lymphatic: Reports: No Symptoms Immunologic: Reports: No Symptoms ED EXAM, GI/ABD - Physical Exam Exam: See Below Exam Limited By: No Limitations General Appearance: Alert, WD/WN, Mild Distress (moves slowly to L side during examination) Eyes: Bilateral: Normal Appearance, EOMI Ears: Normal External Exam Nose: Normal Inspection Throat/Mouth: Normal Inspection Head: Normocephalic Neck: Normal Inspection, Supple Respiratory/Chest: No Respiratory Distress, Lungs Clear, No Accessory Muscle Use Cardiovascular: Regular Rate, Rhythm, No Murmur GI/Abdominal Exam: Normal Bowel Sounds, No Organomegaly, No Distention, No Mass , Tender (LLQ overlying area of renal transplant with guarding but no rigidity) (Male) Exam: No Hernia, Normal Inspection Rectal (Males) Exam: Normal Exam, Normal Rectal Tone, Prostate Normal Back Exam: Normal Inspection Extremities: Normal Inspection Neurological: Alert, Oriented, CN II-XII Intact Psychiatric: Normal Affect, Normal Mood Skin Exam: Warm, Dry, Intact Lymphatic: No Adenopathy Course - Vital Signs Text/Narrative:: Following assessment, screening labs noted baseline CBC, CMP, but markedly elevated CRP 9.6; the UA was abnormal with pyuria, hematuria, bactururia, and large leuko est. A UC was set up. I discussed case with talent development consultant wig maker at [facility] Lorenzo who suggested a Prograf level and a Renal US. The Renal US did not identify any stone disease, obstruction, or perinephric stranding. I discussed case with patient and family regarding admission for Observation and IV antibx pending C&S of UC, and eventual transition to oral antibx for presumptive pyelonephritis in an immunosuppressed patient, and they are in agreement. Hospitalist will follow in the am. I did provide a Hydrocodone 5/325 for the abdominal pain for comfort. Last Recorded V/S: Last Vital Signs Temp 36.2 C 04/06/19 12:46 Pulse 96 04/06/19 12:46 Resp 20 04/06/19 12:46 BP 175/95 H 04/06/19 12:46 Pulse Ox 95 04/06/19 12:46 - Orders/Labs/Meds Orders: Active Orders 24 hr Category Date Time Status Patient Status Manage Transfer [TRANSFER] Routine ADT 04/06/19 16:09 Active Renal Comp [US] Stat Exams 04/06/19 14:05 Taken CULTURE URINE [] Stat Lab 04/06/19 13:16 Received TACROLIMUS BY IMMUNOASSAY Urgent Lab 04/06/19 13:28 Received Piperacillin/Tazobactam [Zosyn] 3.375 gm Med 04/06/19 15:00 Active Sodium Chloride 0.9% [Normal Saline] 50 ml IV Q6H Sodium Chloride 0.9% [Normal Saline] 1,000 ml Med 04/06/19 14:15 Active IV ASDIRECTED Sodium Chloride 0.9% [Saline Flush] Med 04/06/19 14:10 Active 10 ml FLUSH ASDIRECTED PRN Peripheral IV Insertion Adult [OM.PC] Routine Oth 04/06/19 14:10 Ordered Medication Orders Sodium Chloride (Normal Saline) 1,000 mls @ 999 mls/hr IV ASDIRECTED LARON Stop: 04/07/19 15:16 Last Admin: 04/06/19 16:21 Dose: 999 mls/hr Infusion: 04/06/19 16:02 Dose: 999 mls/hr Admin: 04/06/19 15:01 Dose: 999 mls/hr Piperacillin Sod/Tazobactam (Sod 3.375 gm/ Sodium Chloride) 50 mls @ 100 mls/ hr IV Q6H LARON Last Admin: 04/06/19 15:09 Dose: 100 mls/hr Sodium Chloride (Saline Flush) 10 ml FLUSH ASDIRECTED PRN PRN Reason: Keep Vein Open Last Admin: 04/06/19 15:01 Dose: 10 ml Labs: Laboratory Tests 04/06/19 04/06/19 04/06/19 Range/Units 13:16 13:28 13:28 WBC 5.4 (4.5-12.0) X10-3/uL RBC 2.95 L (4.30-5.75) x10(6)uL Hgb 9.0 L (13.5-17.8) g/dL Hct 25.9 L (30.0-51.3) % MCV 87.9 (80-96) fL MCH 30.6 (27.7-33.6) pg MCHC 34.8 (32.2-35.4) g/dL RDW 13.0 (11.5-15.5) % Plt Count 34 L* (125-369) X10(3)uL MPV 9.0 (7.4-10.4) fL Neut % (Auto) 73.7 (46-82) % Lymph % (Auto) 12.5 L (13-37) % [place] % (Auto) 11.7 (4-12) % Eos % (Auto) 1 (1.0-5.0) % Baso % (Auto) 2 (0-2) % Neut # (Auto) 4.0 (1.6-8.3) # Lymph # (Auto) 0.7 (0.6-5.0) # [place] # (Auto) 0.6 (0.0-1.3) # Eos # (Auto) 0.0 (0.0-0.8) # Baso # (Auto) 0.1 (0.0-0.2) # Sodium (135-145) mmol/L Potassium (3.5-5.3) mmol/L Chloride (100-110) mmol/L Carbon Dioxide (21-32) mmol/L BUN (7-18) mg/dL Creatinine (0.70-1.30) mg/dL Est Cr Clr Drug Dosing mL/min Estimated GFR (MDRD) (>60) BUN/Creatinine Ratio (9-20) Glucose (80-116) mg/dL Lactic Acid 0.7 (0.4-2.2) mmol/L Calcium (8.6-10.2) mg/dL Total Bilirubin (0.1-1.3) mg/dL AST (5-25) IU/L ALT (12-36) U/L Alkaline Phosphatase (56-112) IU/L C-Reactive Protein (0.5-0.9) mg/dL Total Protein (6.0-8.0) g/dL Albumin (3.5-5.2) g/dL Globulin g/dL Albumin/Globulin Ratio Urine Color Yellow (YELLOW) Urine Appearance Cloudy (CLEAR) Urine pH 8.0 H (5.0-6.5) Ur Specific Fonda 1.005 L (1.010-1.025) Urine Protein 30 H (NEGATIVE) mg/dL Urine Glucose (UA) Normal (NORMAL) mg/dL Urine Ketones 15 H (NEGATIVE) mg/dL Urine Occult Blood Large H (NEGATIVE) Urine Nitrite Negative (NEGATIVE) Urine Bilirubin Negative (NEGATIVE) Urine Urobilinogen Normal (NEGATIVE) mg/dL Ur Leukocyte Esterase Large H (NEGATIVE) Urine RBC 20-30 H (0-5) Urine WBC >100 H (0-5) Ur Squamous Epith Cells Occasional (NS,R,O) Urine Bacteria Moderate H (NS) 04/06/19 04/06/19 Range/Units 13:28 13:28 WBC (4.5-12.0) X10-3/uL RBC (4.30-5.75) x10(6)uL Hgb (13.5-17.8) g/dL Hct (30.0-51.3) % MCV (80-96) fL MCH (27.7-33.6) pg MCHC (32.2-35.4) g/dL RDW (11.5-15.5) % Plt Count (125-369) X10(3)uL MPV (7.4-10.4) fL Neut % (Auto) (46-82) % Lymph % (Auto) (13-37) % [place] % (Auto) (4-12) % Eos % (Auto) (1.0-5.0) % Baso % (Auto) (0-2) % Neut # (Auto) (1.6-8.3) # Lymph # (Auto) (0.6-5.0) # [place] # (Auto) (0.0-1.3) # Eos # (Auto) (0.0-0.8) # Baso # (Auto) (0.0-0.2) # Sodium 136 (135-145) mmol/L Potassium 4.0 D (3.5-5.3) mmol/L Chloride 101 (100-110) mmol/L Carbon Dioxide 29 (21-32) mmol/L BUN 28 H (7-18) mg/dL Creatinine 1.6 H (0.70-1.30) mg/dL Est Cr Clr Drug Dosing 44.86 mL/min Estimated GFR (MDRD) 44 L (>60) BUN/Creatinine Ratio 17.5 (9-20) Glucose 155 H D (80-116) mg/dL Lactic Acid (0.4-2.2) mmol/L Calcium 7.9 L (8.6-10.2) mg/dL Total Bilirubin 0.4 (0.1-1.3) mg/dL AST 43 H D (5-25) IU/L ALT 60 H D (12-36) U/L Alkaline Phosphatase 214 H (56-112) IU/L C-Reactive Protein 9.6 H* (0.5-0.9) mg/dL Total Protein 6.5 (6.0-8.0) g/dL Albumin 2.3 L (3.5-5.2) g/dL Globulin 4.2 g/dL Albumin/Globulin Ratio 0.6 Urine Color (YELLOW) Urine Appearance (CLEAR) Urine pH (5.0-6.5) Ur Specific Fonda (1.010-1.025) Urine Protein (NEGATIVE) mg/dL Urine Glucose (UA) (NORMAL) mg/dL Urine Ketones (NEGATIVE) mg/dL Urine Occult Blood (NEGATIVE) Urine Nitrite (NEGATIVE) Urine Bilirubin (NEGATIVE) Urine Urobilinogen (NEGATIVE) mg/dL Ur Leukocyte Esterase (NEGATIVE) Urine RBC (0-5) Urine WBC (0-5) Ur Squamous Epith Cells (NS,R,O) Urine Bacteria (NS) Meds: Medications Generic Name Dose Route Start Last Admin Trade Name Freq PRN Reason Stop Dose Admin Sodium Chloride 1,000 mls @ 999 mls/hr 04/06/19 14:15 04/06/19 16:21 Normal Saline IV 04/07/19 15:16 999 mls/hr ASDIRECTED LARON Administration Piperacillin Sod/Tazobactam 50 mls @ 100 mls/hr 04/06/19 15:00 04/06/19 15:09 Sod 3.375 gm/ Sodium Chloride IV 100 mls/hr Q6H LARON Administration Sodium Chloride 10 ml 04/06/19 14:10 04/06/19 15:01 Saline Flush FLUSH 10 ml ASDIRECTED PRN Administration Keep Vein Open Discontinued Medications Generic Name Dose Route Start Last Admin Trade Name Freq PRN Reason Stop Dose Admin Hydrocodone Bitart/Acetaminophen 1 tab 04/06/19 15:01 04/06/19 15:09 Bouton 325-5 Mg PO 04/06/19 15:02 1 tab ONETIME ONE Administration Departure - Departure Time of Disposition: 16:10 Disposition: Refer to Observation Condition: Fair Clinical Impression: Pyelonephritis - Discharge Information *PRESCRIPTION DRUG MONITORING PROGRAM REVIEWED*: Not Applicable *COPY OF PRESCRIPTION DRUG MONITORING REPORT IN PATIENT JUNI: Not Applicable - Problem List & Annotations (1) Pyelonephritis SNOMED Code(s): 27885048 Code(s): N12 - TUBULO-INTERSTITIAL NEPHRITIS, NOT SPCF ACUTE OR CHRONIC Status: Acute Current Visit: Yes Annotation/Comment:: improving - Problem List Review Problem List Initiated/Reviewed/Updated: Yes - My Orders Last 24 Hours: My Active Orders 04/06/19 13:16 CULTURE URINE [RM] Stat 04/06/19 13:28 TACROLIMUS BY IMMUNOASSAY Urgent 04/06/19 14:05 Renal Comp [US] Stat 04/06/19 14:10 Sodium Chloride 0.9% [Saline Flush] 10 ml FLUSH ASDIRECTED PRN Peripheral IV Insertion Adult [OM.PC] Routine 04/06/19 14:15 Sodium Chloride 0.9% [Normal Saline] 1,000 ml IV ASDIRECTED 04/06/19 15:00 Piperacillin/Tazobactam [Zosyn] 3.375 gm Sodium Chloride 0.9% [Normal Saline] 50 ml IV Q6H 04/06/19 16:09 Patient Status Manage Transfer [TRANSFER] Routine - Assessment/Plan Last 24 Hours: My Active Orders 04/06/19 13:16 CULTURE URINE [RM] Stat 04/06/19 13:28 TACROLIMUS BY IMMUNOASSAY Urgent 04/06/19 14:05 Renal Comp [US] Stat 04/06/19 14:10 Sodium Chloride 0.9% [Saline Flush] 10 ml FLUSH ASDIRECTED PRN Peripheral IV Insertion Adult [OM.PC] Routine 04/06/19 14:15 Sodium Chloride 0.9% [Normal Saline] 1,000 ml IV ASDIRECTED 04/06/19 15:00 Piperacillin/Tazobactam [Zosyn] 3.375 gm Sodium Chloride 0.9% [Normal Saline] 50 ml IV Q6H 04/06/19 16:09 Patient Status Manage Transfer [TRANSFER] Routine Plan: Hospitalist to see in the am.
[2019-04-06] MEDS ORDERED: Acetaminophen/HYDROcodone 325-5 MG Tab PO ONE (15:01)
[2019-04-06] MEDS: Sodium Chloride 0.9% 10 ML Syringe FLUSH PRN ×2 (15:01→20:19)
[2019-04-06] MEDS: Sodium Chloride 0.9% 1,000 ML IV SCH ×2 (15:01→16:21)
[2019-04-06] MEDS: Piperacillin/Tazobactam 3.375 GM in Sodium Chloride 0.9% 50 ML IV SCH ×2 (15:09→20:19)
[2019-04-06] MEDS ORDERED: Gabapentin 300 MG Cap*PT OWN MED PO ONE (20:15)
[2019-04-06] MEDS: Acetaminophen/HYDROcodone 325-5 MG Tab PO PRN (20:20)
[2019-04-06] MEDS: TACROLIMUS 0.5 MG PO SCH (20:23)
[2019-04-06] MEDS: TIZANIDINE 2 MG PO SCH (20:25)
[2019-04-07] MEDS: Piperacillin/Tazobactam 3.375 GM in Sodium Chloride 0.9% 50 ML IV SCH ×4 (03:20→20:42)
[2019-04-07] MEDS: Acetaminophen/HYDROcodone 325-5 MG Tab PO PRN ×2 (06:43→15:59)
--- NOTE | 2019-04-07 08:30 | PCM.HP.2 ---
H&P History of Present Illness - General Date of Service: 04/07/19 Admit Problem/Dx: Admission Diagnosis/Problem Admission Diagnosis/Problem Pyelonephritis Source of Information: Patient, Old Records History Limitations: Reports: No Limitations - History of Present Illness Initial Comments - Free Text/Narative: opal is a 58-year-old male who came in left lower quadrant pain for 24 hours. He describes sharp pain that gets back into the pelvic area. He denies constipation or urinary symptoms, neither does he have any vomiting fever or chills. Opal has a history of chronic pain syndrome, myelodysplastic syndrome, and anemia requiring transfusions. He also has a history of chronic kidney disease, with a baseline creatinine 1.6. He also has type 2 diabetes that is well controlled. He was just here last week for hypotension and acute on chronic renal failure. LLQ Pain Score (Numeric/FACES): 5 - Related Data Allergies/Adverse Reactions: Allergies Allergy/AdvReac Type Severity Reaction Status Date / Time No Known Allergies Allergy Verified 04/01/19 18:22 Home Medications: Home Meds Cholecalciferol (Vitamin D3) [Vitamin D3] 1,000 unit PO DAILY 06/07/15 [History] Calcitriol [Rocaltrol] 0.5 mcg PO DAILY 08/22/15 [History] Magnesium Oxide [Magnesium] 500 mg PO TID 07/23/17 [History] Sodium Bicarbonate 650 mg PO BID 07/23/17 [History] predniSONE [Prednisone] 10 mg PO DAILY 09/17/17 [History] Tacrolimus [Prograf] 0.5 mg PO BEDTIME 02/24/18 [History] Fluconazole [Diflucan] 200 mg PO DAILY 08/07/18 [History] Insulin Degludec [Tresiba Flextouch U-100] 15 units SQ DAILY 08/07/18 [History] carvediloL [Carvedilol] 6.25 mg PO BID 10/16/18 [History] Tacrolimus 1 mg PO DAILY 02/08/19 [History] Aspirin [Halfprin] 81 mg PO DAILY 02/20/19 [History] Pantoprazole Sodium [Protonix] 40 mg PO BID 02/20/19 [History] Gabapentin [Neurontin] 300 mg PO BID 04/02/19 [History] Isosorbide Mononitrate [Imdur] 30 mg PO DAILY 04/02/19 [History] glipiZIDE [Glucotrol] 5 mg PO DAILY 04/02/19 [History] Sulfamethoxazole/Trimethoprim [Bactrim Ds Tablet] 1 tab PO BID 04/06/19 [History ] tiZANidine [Zanaflex] 2 tab PO BEDTIME 04/06/19 [History] Past Medical History HEENT History: Reports: Impaired Vision Other HEENT History: Pt wears glasses Cardiovascular History: Reports: CAD, High Cholesterol, MA, Stents, Other (See Below) Other Cardiovascular History: viral menigitis 2015 (also "had MA 09/2017 went to [place] they put in a stent" this recorded on 09/14/17) Respiratory History: Reports: Other (See Below) Gastrointestinal History: Reports: Cholelithiasis, Colon Polyp, Diverticulosis, Hemorrhoids Genitourinary History: Reports: Renal Disease, UTI, Recurrent, Other (See Below) Other Genitourinary History: kidney transplant (2001) pts fistula was removed early may 2017 from left arm Musculoskeletal History: Reports: Back Pain, Chronic Other Musculoskeletal History: has lump on neck vein and will need it removed Neurological History: Reports: Other (See Below) Other Neuro History: Cryptococcal meningitis Psychiatric History: Reports: Addiction, Anxiety, Depression, Panic Attack, Other (See Below) Other Psychiatric History: gets mildly depressed. POST ALCOHOLIC 1998 Endocrine/Metabolic History: Reports: Diabetes, Type II, Hypoparathyroidism Hematologic History: Reports: Anemia, Blood Transfusion(s) Other Hematologic History: myelodysplastic syndrome Immunologic History: Reports: Immunosuppression, Solid Organ Transplant Other Immunologic History: kidney transplant 2001 Oncologic (Cancer) History: Reports: None Dermatologic History: Reports: None - Infectious Disease History Infectious Disease History: Reports: Chicken Pox, Meningitis - Past Surgical History Head Surgeries/Procedures: Reports: None Cardiovascular Surgical History: Reports: Coronary Artery Stent GI Surgical History: Reports: Appendectomy, Cholecystectomy, Colonoscopy Male Surgical History: Reports: Other (See Below) Other Male Surgeries/Procedures: kidney transplant in 2001 Endocrine Surgical History: Reports: Other (See Below) Other Endocrine Surgeries/Procedures: had thyroid removed Musculoskeletal Surgical History: Reports: Hip Replacement Other Musculoskeletal Surgeries/Procedures:: both hips-replaced Social & Family History - Family History Family Medical History: Noncontributory Cardiac: Reports: CAD, Other (See Below) Other Cardiac Family History: Brother had bypass OBGYN: Reports: Endocrine/Metabolic: Reports: Diabetes, type II - Tobacco Use Second Hand Smoke Exposure: No - Caffeine Use Caffeine Use: Reports: Coffee Other Caffeine Use: 2-3 cups per day Caffeine Use Comment: 2-3 cups/day - Recreational Drug Use Recreational Drug Use: Yes Recreational Drug Type: Reports: Marijuana/Hashish Recreational Drug Use Frequency: Monthly - Living Situation & Occupation Living situation: Reports: Alone Occupation: Disabled H&P Review of Systems - Review of Systems: Review Of Systems: Comprehensive ROS is negative, except as noted in HPI. Exam - Exam Exam: See Below - Vital Signs Vital Signs: Last Vital Signs Temp 100.5 F 04/07/19 07:35 Pulse 75 04/07/19 07:35 Resp 20 04/07/19 07:35 BP 140/87 04/07/19 07:35 Pulse Ox 93 L 04/07/19 07:35 Weight: 69.763 kg - Exam General: Alert, Oriented, 4 HEENT: PERRLA, Hearing Intact, Mucosa Moist & [place], Nares Patent, Normal Nasal Septum, Posterior Pharynx Clear, Conjunctiva Clear, EOMI, EACs Clear, TMs Clear Neck: Supple, Trachea Midline, 2 Lungs: Clear to Auscultation, Normal Respiratory Effort Cardiovascular: Regular Rate, Regular Rhythm GI/Abdominal Exam: Normal Bowel Sounds, Distended, Tender. No: Hepatomegaly, Splenomegaly (Male) Exam: No Hernia Rectal (Males) Exam: Deferred Back Exam: Muscle Spasm, Paraspinal Tenderness, Vertebral Tenderness Extremities: Normal Inspection, Normal Range of Motion, Non-Tender, No Pedal Edema, Normal Capillary Refill Skin: Warm, Dry, Intact Neurological: Cranial Nerves Intact, Reflexes Equal Bilateral Neuro Extensive - Mental Status: Alert, Oriented x3, Normal Mood/Affect, Normal Cognition Neuro Extensive - Motor, Sensory, Reflexes: CN II-XII Intact, Normal Gait, Normal Reflexes Psychiatric: Alert, Normal Affect, Normal Mood - Patient Data Lab Results Last 24 hrs: Laboratory Results - last 24 hr 04/06/19 04/06/19 04/06/19 Range/Units 13:16 13:28 13:28 WBC 5.4 (4.5-12.0) X10-3/uL RBC 2.95 L (4.30-5.75) x10(6)uL Hgb 9.0 L (13.5-17.8) g/dL Hct 25.9 L (30.0-51.3) % MCV 87.9 (80-96) fL MCH 30.6 (27.7-33.6) pg MCHC 34.8 (32.2-35.4) g/dL RDW 13.0 (11.5-15.5) % Plt Count 34 L* (125-369) X10(3)uL MPV 9.0 (7.4-10.4) fL Neut % (Auto) 73.7 (46-82) % Lymph % (Auto) 12.5 L (13-37) % [place] % (Auto) 11.7 (4-12) % Eos % (Auto) 1 (1.0-5.0) % Baso % (Auto) 2 (0-2) % Neut # (Auto) 4.0 (1.6-8.3) # Lymph # (Auto) 0.7 (0.6-5.0) # [place] # (Auto) 0.6 (0.0-1.3) # Eos # (Auto) 0.0 (0.0-0.8) # Baso # (Auto) 0.1 (0.0-0.2) # Sodium (135-145) mmol/L Potassium (3.5-5.3) mmol/L Chloride (100-110) mmol/L Carbon Dioxide (21-32) mmol/L BUN (7-18) mg/dL Creatinine (0.70-1.30) mg/dL Est Cr Clr Drug Dosing mL/min Estimated GFR (MDRD) (>60) BUN/Creatinine Ratio (9-20) Glucose (80-116) mg/dL POC Glucose (80-116) mg/dL Lactic Acid 0.7 (0.4-2.2) mmol/L Calcium (8.6-10.2) mg/dL Total Bilirubin (0.1-1.3) mg/dL AST (5-25) IU/L ALT (12-36) U/L Alkaline Phosphatase (56-112) IU/L C-Reactive Protein (0.5-0.9) mg/dL Total Protein (6.0-8.0) g/dL Albumin (3.5-5.2) g/dL Globulin g/dL Albumin/Globulin Ratio Urine Color Yellow (YELLOW) Urine Appearance Cloudy (CLEAR) Urine pH 8.0 H (5.0-6.5) Ur Specific [place] 1.005 L (1.010-1.025) Urine Protein 30 H (NEGATIVE) mg/dL Urine Glucose (UA) Normal (NORMAL) mg/dL Urine Ketones 15 H (NEGATIVE) mg/dL Urine Occult Blood Large H (NEGATIVE) Urine Nitrite Negative (NEGATIVE) Urine Bilirubin Negative (NEGATIVE) Urine Urobilinogen Normal (NEGATIVE) mg/dL Ur Leukocyte Esterase Large H (NEGATIVE) Urine RBC 20-30 H (0-5) Urine WBC >100 H (0-5) Ur Squamous Epith Cells Occasional (NS,R,O) Urine Bacteria Moderate H (NS) 04/06/19 04/06/19 04/06/19 Range/Units 13:28 13:28 17:17 WBC (4.5-12.0) X10-3/uL RBC (4.30-5.75) x10(6)uL Hgb (13.5-17.8) g/dL Hct (30.0-51.3) % MCV (80-96) fL MCH (27.7-33.6) pg MCHC (32.2-35.4) g/dL RDW (11.5-15.5) % Plt Count (125-369) X10(3)uL MPV (7.4-10.4) fL Neut % (Auto) (46-82) % Lymph % (Auto) (13-37) % [place] % (Auto) (4-12) % Eos % (Auto) (1.0-5.0) % Baso % (Auto) (0-2) % Neut # (Auto) (1.6-8.3) # Lymph # (Auto) (0.6-5.0) # [place] # (Auto) (0.0-1.3) # Eos # (Auto) (0.0-0.8) # Baso # (Auto) (0.0-0.2) # Sodium 136 (135-145) mmol/L Potassium 4.0 D (3.5-5.3) mmol/L Chloride 101 (100-110) mmol/L Carbon Dioxide 29 (21-32) mmol/L BUN 28 H (7-18) mg/dL Creatinine 1.6 H (0.70-1.30) mg/dL Est Cr Clr Drug Dosing 44.86 mL/min Estimated GFR (MDRD) 44 L (>60) BUN/Creatinine Ratio 17.5 (9-20) Glucose 155 H D (80-116) mg/dL POC Glucose 111 D (80-116) mg/dL Lactic Acid (0.4-2.2) mmol/L Calcium 7.9 L (8.6-10.2) mg/dL Total Bilirubin 0.4 (0.1-1.3) mg/dL AST 43 H D (5-25) IU/L ALT 60 H D (12-36) U/L Alkaline Phosphatase 214 H (56-112) IU/L C-Reactive Protein 9.6 H* (0.5-0.9) mg/dL Total Protein 6.5 (6.0-8.0) g/dL Albumin 2.3 L (3.5-5.2) g/dL Globulin 4.2 g/dL Albumin/Globulin Ratio 0.6 Urine Color (YELLOW) Urine Appearance (CLEAR) Urine pH (5.0-6.5) Ur Specific [place] (1.010-1.025) Urine Protein (NEGATIVE) mg/dL Urine Glucose (UA) (NORMAL) mg/dL Urine Ketones (NEGATIVE) mg/dL Urine Occult Blood (NEGATIVE) Urine Nitrite (NEGATIVE) Urine Bilirubin (NEGATIVE) Urine Urobilinogen (NEGATIVE) mg/dL Ur Leukocyte Esterase (NEGATIVE) Urine RBC (0-5) Urine WBC (0-5) Ur Squamous Epith Cells (NS,R,O) Urine Bacteria (NS) 04/07/19 Range/Units 06:21 WBC (4.5-12.0) X10-3/uL RBC (4.30-5.75) x10(6)uL Hgb (13.5-17.8) g/dL Hct (30.0-51.3) % MCV (80-96) fL MCH (27.7-33.6) pg MCHC (32.2-35.4) g/dL RDW (11.5-15.5) % Plt Count (125-369) X10(3)uL MPV (7.4-10.4) fL Neut % (Auto) (46-82) % Lymph % (Auto) (13-37) % [place] % (Auto) (4-12) % Eos % (Auto) (1.0-5.0) % Baso % (Auto) (0-2) % Neut # (Auto) (1.6-8.3) # Lymph # (Auto) (0.6-5.0) # [place] # (Auto) (0.0-1.3) # Eos # (Auto) (0.0-0.8) # Baso # (Auto) (0.0-0.2) # Sodium (135-145) mmol/L Potassium (3.5-5.3) mmol/L Chloride (100-110) mmol/L Carbon Dioxide (21-32) mmol/L BUN (7-18) mg/dL Creatinine (0.70-1.30) mg/dL Est Cr Clr Drug Dosing mL/min Estimated GFR (MDRD) (>60) BUN/Creatinine Ratio (9-20) Glucose (80-116) mg/dL POC Glucose 115 (80-116) mg/dL Lactic Acid (0.4-2.2) mmol/L Calcium (8.6-10.2) mg/dL Total Bilirubin (0.1-1.3) mg/dL AST (5-25) IU/L ALT (12-36) U/L Alkaline Phosphatase (56-112) IU/L C-Reactive Protein (0.5-0.9) mg/dL Total Protein (6.0-8.0) g/dL Albumin (3.5-5.2) g/dL Globulin g/dL Albumin/Globulin Ratio Urine Color (YELLOW) Urine Appearance (CLEAR) Urine pH (5.0-6.5) Ur Specific [place] (1.010-1.025) Urine Protein (NEGATIVE) mg/dL Urine Glucose (UA) (NORMAL) mg/dL Urine Ketones (NEGATIVE) mg/dL Urine Occult Blood (NEGATIVE) Urine Nitrite (NEGATIVE) Urine Bilirubin (NEGATIVE) Urine Urobilinogen (NEGATIVE) mg/dL Ur Leukocyte Esterase (NEGATIVE) Urine RBC (0-5) Urine WBC (0-5) Ur Squamous Epith Cells (NS,R,O) Urine Bacteria (NS) Result Diagrams: 11/25/19 13:28 04/06/19 13:28 Adria Results Last 24 hrs: Microbiology 04/06/19 13:16 Stool Occult Blood ([facility]) - Final Stool / Feces - Problem List (1) LLQ abdominal pain SNOMED Code(s): 052467527 ICD Code: R10.32 - LEFT LOWER QUADRANT PAIN Status: Acute Current Visit: Yes (2) Bacteriuria SNOMED Code(s): 74046833 ICD Code: R82.71 - BACTERIURIA Status: Acute Current Visit: Yes (3) Anemia SNOMED Code(s): 420515751 ICD Code: D64.9 - ANEMIA, UNSPECIFIED Status: Acute Current Visit: Yes (4) Chronic pain SNOMED Code(s): 70214970 ICD Code: G89.29 - OTHER CHRONIC PAIN Status: Acute Current Visit: Yes (5) H/O kidney transplant Status: Acute Current Visit: Yes (6) CKD (chronic kidney disease) SNOMED Code(s): 378581081 ICD Code: N18.9 - CHRONIC KIDNEY DISEASE, UNSPECIFIED Status: Chronic Current Visit: No Qualifiers: Chronic kidney disease stage: stage 2 (mild) Qualified Code(s): N18.2 - Chronic kidney disease, stage 2 (mild) (7) Diabetes type 2, uncontrolled SNOMED Code(s): 725898561, 499958859 ICD Code: E11.65 - TYPE 2 DIABETES MELLITUS WITH HYPERGLYCEMIA Status: Chronic Current Visit: No Qualifiers: Glycemic state: with hyperglycemia Qualified Code(s): E11.65 - Type 2 diabetes mellitus with hyperglycemia (8) HTN (hypertension) SNOMED Code(s): 88146457 ICD Code: I10 - ESSENTIAL (PRIMARY) HYPERTENSION Status: Chronic Current Visit: No Qualifiers: Hypertension type: essential hypertension Qualified Code(s): I10 - Essential (primary) hypertension Problem List Initiated/Reviewed/Updated: Yes Orders Last 24hrs: Active Orders 24 hr Category Date Time Status Patient Status [ADT] Routine ADT 04/06/19 16:43 Active Blood Glucose Check, Bedside [RC] BIDMEALS Care 04/06/19 16:43 Active Intake and Output [RC] 06,14,22 Care 04/06/19 16:46 Active Oxygen Therapy [RC] PRN Care 04/06/19 16:43 Active Up to Chair [RC] ASDIRECTED Care 04/06/19 16:43 Active VTE/DVT Education [RC] Per Unit Routine Care 04/06/19 16:43 Active Vital Signs [RC] Q4H Care 04/06/19 16:43 Active Consistent Carbohydrate Diet [DIET] Diet 04/06/19 Dinner Active Abdomen Pelvis wo Cont [CT] Routine Exams 04/07/19 08:23 Ordered Renal Comp [US] Stat Exams 04/06/19 14:05 Taken CBC WITH AUTO DIFF [HEME] Stat Lab 04/07/19 07:50 Received COMPREHENSIVE METABOLIC PN,CMP [CHEM] Stat Lab 04/07/19 07:50 Received CRP [C-REACTIVE PROTEIN] [CHEM] Routine Lab 04/07/19 07:50 Received CULTURE URINE [RM] Stat Lab 04/06/19 13:16 Received LACTIC ACID [CHEM] Routine Lab 04/07/19 08:24 Ordered TACROLIMUS BY IMMUNOASSAY Urgent Lab 04/06/19 13:28 Received Acetaminophen/HYDROcodone [[place] 325-5 MG] Med 04/06/19 19:55 Active 1 tab PO Q6H PRN Gabapentin [Neurontin] Med 04/06/19 21:00 Active 300 mg PO BID Patient's Own Medication [Ptom] Med 04/06/19 21:00 Active 0 each PO BEDTIME Piperacillin/Tazobactam [Zosyn] 3.375 gm Med 04/06/19 15:00 Active Sodium Chloride 0.9% [Normal Saline] 50 ml IV Q6H Sodium Chloride 0.9% [Normal Saline] 1,000 ml Med 04/06/19 14:15 Active IV ASDIRECTED Sodium Chloride 0.9% [Saline Flush] Med 04/06/19 14:10 Active 10 ml FLUSH ASDIRECTED PRN Tacrolimus [Prograf] Med 04/06/19 21:00 Active 0.5 mg PO BEDTIME Peripheral IV Insertion Adult [OM.PC] Routine Oth 04/06/19 14:10 Ordered Resuscitation Status Routine Resus Stat 04/06/19 16:43 Ordered Medication Orders Hydrocodone Bitart/Acetaminophen ([place] 325-5 Mg) 1 tab PO Q6H PRN PRN Reason: Pain Last Admin: 04/07/19 06:43 Dose: 1 tab Admin: 04/06/19 20:20 Dose: 1 tab Gabapentin (Neurontin) 300 mg PO BID [facility] Sodium Chloride (Normal Saline) 1,000 mls @ 999 mls/hr IV ASDIRECTED LARON Stop: 04/07/19 15:16 Last Admin: 04/06/19 16:21 Dose: 999 mls/hr Infusion: 04/06/19 16:02 Dose: 999 mls/hr Admin: 04/06/19 15:01 Dose: 999 mls/hr Piperacillin Sod/Tazobactam (Sod 3.375 gm/ Sodium Chloride) 50 mls @ 100 mls/ hr IV Q6H [facility] Last Admin: 04/07/19 03:20 Dose: 100 mls/hr Admin: 04/06/19 20:19 Dose: 100 mls/hr Admin: 04/06/19 15:09 Dose: 100 mls/hr Tizanidine 2 Mg Tab (*Pt Own Med*) 0 each PO BEDTIME [facility] Last Admin: 04/06/19 20:25 Dose: 2 each Sodium Chloride (Saline Flush) 10 ml FLUSH ASDIRECTED PRN PRN Reason: Keep Vein Open Last Admin: 04/06/19 20:19 Dose: 10 ml Admin: 04/06/19 15:01 Dose: 10 ml Tacrolimus (Prograf) 0.5 mg PO BEDTIME [facility] Last Admin: 04/06/19 20:23 Dose: 0.5 mg Assessment/Plan Comment:: The source of his pain is unclear even though a urinary tract infection is entertained. I have continued IV antibiotics but obtain a CT of the abdomen pelvis without contrast due to his kidneys. Repeat labs this morning. Anticipate discharge in 1-2 days either IV or oral antibiotics if necessary. - Mortality Measure Prognosis:: Good
[2019-04-07] MEDS: Gabapentin 300 MG Cap *PTOM PO SCH ×3 (09:06→20:33)
--- NOTE | 2019-04-07 09:24 | US ---
INDICATION: Left lower quadrant pain, possible pyelonephritis, symptoms for 24 hours, left renal transplant. RENAL ULTRASOUND, COMPLETE: Multiple ultrasonic images were obtained of a renal transplant in the pelvis on the left and revealed the left kidney to have a normal appearance without evidence of obstructive uropathy. Normal appearing renal blood flow is seen at the transplanted left kidney. [place] kidneys were not visualized. Urinary bladder showed evidence of thickening of the wall with a left ureteral jet present. The possibility of cystitis would be a consideration with the thickened wall, although trabeculation would also be a consideration - correlate clinically. IMPRESSION: 1. Transplanted kidney has a relatively normal appearance with no specific pathology identified. 2. Urinary bladder wall appears to be thickened, which could be on the basis of cystitis but should be correlated clinically. MTDD
--- NOTE | 2019-04-07 13:36 | CT ---
INDICATION: Left lower quadrant abdominal pain. CT ABDOMEN AND PELVIS WITHOUT CONTRAST: Spiral 2.5 mm axial sections were obtained through the abdomen and pelvis without contrast with sagittal and coronal reconstructions, 04/07/19, and compared with 07/23/17. Total exam DLP = 879.43 mGy-cm. There are bibasilar pleural parenchymal changes now seen, compatible with bibasilar pneumonia and pleuritis with small pleural effusions and areas of consolidating pneumonia in the lower lobes bilaterally. Some minimal linear atelectatic appearing changes and/or minimal patchy infiltrate may also be present in the lingula. Coronary artery calcifications are noted with mild enlargement of the heart suggested. Pericardium is slightly thickened, which may represent minimal pericardial effusion and should be correlated clinically. A small low density lesion is noted at the left lobe of the liver on axial image #37 near the midline, not as visible on the previous study but possibly still representing a benign structure, possibly a cyst. A low density lesion in the lower pole of the right lobe of the liver posteromedially on the previous study has significantly decreased in size. The finding may represent a cyst that has involuted but should be correlated clinically, as other etiology cannot be excluded, such as a treated metastatic deposit. The gallbladder is absent, compatible with history of its removal. The common bile duct was not enlarged, allowing for post cholecystectomy especially. The [place] kidneys bilaterally are markedly atrophic with extreme thinning of the cortices. The adrenal glands appear to be normal. The spleen was felt to be slightly prominent in size. The pancreas was unremarkable. Calcifications are noted in the aorta, splenic artery, hepatic artery, inferior mesenteric artery, iliac and femoral arteries, and renal arteries of the [place] kidneys. Bilateral total hip arthroplasties produce severe hard beam artifact, limiting visualization in the lower pelvis. The urinary bladder wall is thickened, which may be on the basis of cystitis or possibly trabeculation but should be correlated clinically. Transplanted kidney in the left pelvis appears essentially unchanged, except perhaps for a slight increase in perirenal fascial thickening in that area. No definite obstruction was seen. The appendix is absent, compatible with history of its removal. No evidence of free air or bowel obstruction was seen. Sigmoid diverticulosis is noted with some descending diverticulosis but no evidence of diverticulitis identified. No additional organomegaly, mass lesions, or free fluid collections were identified in the abdomen or pelvis. IMPRESSION: 1. Bibasilar pleural parenchymal changes compatible with pneumonia and pleuritis. 2. Low density lesions in the liver, likely of benign origin. 3. ASD/ASHD. 4. Post cholecystectomy. 5. Post appendectomy. 6. Thickening of the wall of the urinary bladder, which may represent cystitis. 7. Severely atrophic [place] kidneys with transplanted kidney in the left pelvis appearing intact, as visualized.. 8. Diverticulosis coli without definite evidence of diverticulitis. 9. Bilateral hip arthroplasties with severe hard beam artifact, limiting visualization in the lower pelvis. Report faxed to Dr. Du Andersen on 04/07/19 at 1340 hours. [facility]
[2019-04-07] MEDS: Carvedilol 6.25 MG Tab *PTOM PO SCH ×2 (14:36→20:32)
[2019-04-07] MEDS: TACROLIMUS 1 MG PO SCH (14:36)
[2019-04-07] MEDS: TACROLIMUS 0.5 MG PO SCH (20:33)
[2019-04-07] MEDS: TIZANIDINE 2 MG PO SCH (20:34)
[2019-04-07] MEDS: Sodium Chloride 0.9% 10 ML Syringe FLUSH PRN (21:08)
[2019-04-08] MEDS: Piperacillin/Tazobactam 3.375 GM in Sodium Chloride 0.9% 50 ML IV SCH ×2 (02:41→09:27)
[2019-04-08] MEDS: Sodium Chloride 0.9% 10 ML Syringe FLUSH PRN ×2 (03:06→09:30)
[2019-04-08] MEDS: Acetaminophen/HYDROcodone 325-5 MG Tab PO PRN (04:47)
--- NOTE | 2019-04-08 08:49 | PCM.DCSUM1 ---
Discharge Summary - Hospital Course HPI Initial Comments: He presented to the ER with pain in the left flank and low back area. Is not having urinary symptoms or respiratory symptoms. He does have a history of chronic pain in the shoulders back neck. He also has a history of myelodysplastic syndrome, chronic renal failure, type 2 diabetes. Brief History: Hollis was admitted for possible acute pyelonephritis. Diagnosis: Stroke: No - Discharge Data Discharge Date: 04/08/19 Discharge Disposition: Home, Self-Care 01 Condition: Stable - Referral to Home Health Primary Care Physician: Du Andersen MD - Discharge Diagnosis/Problem(s) (1) LLQ abdominal pain SNOMED Code(s): 226872151 ICD Code: R10.32 - LEFT LOWER QUADRANT PAIN Status: Acute Current Visit: Yes (2) Bacteriuria SNOMED Code(s): 43336092 ICD Code: R82.71 - BACTERIURIA Status: Acute Current Visit: Yes (3) Anemia SNOMED Code(s): 314163778 ICD Code: D64.9 - ANEMIA, UNSPECIFIED Status: Acute Current Visit: Yes (4) Chronic pain SNOMED Code(s): 04156166 ICD Code: G89.29 - OTHER CHRONIC PAIN Status: Acute Current Visit: Yes (5) H/O kidney transplant Status: Acute Current Visit: Yes (6) CKD (chronic kidney disease) SNOMED Code(s): 263788896 ICD Code: N18.9 - CHRONIC KIDNEY DISEASE, UNSPECIFIED Status: Chronic Current Visit: No Qualifiers: Chronic kidney disease stage: stage 2 (mild) Qualified Code(s): N18.2 - Chronic kidney disease, stage 2 (mild) (7) Diabetes type 2, uncontrolled SNOMED Code(s): 459906108, 369216061 ICD Code: E11.65 - TYPE 2 DIABETES MELLITUS WITH HYPERGLYCEMIA Status: Chronic Current Visit: No Qualifiers: Glycemic state: with hyperglycemia Qualified Code(s): E11.65 - Type 2 diabetes mellitus with hyperglycemia (8) HTN (hypertension) SNOMED Code(s): 94347836 ICD Code: I10 - ESSENTIAL (PRIMARY) HYPERTENSION Status: Chronic Current Visit: No Qualifiers: Hypertension type: essential hypertension Qualified Code(s): I10 - Essential (primary) hypertension (9) Pleuritis SNOMED Code(s): 809272946 ICD Code: R09.1 - PLEURISY Status: Acute Current Visit: Yes (10) MRSA (methicillin resistant staph aureus) culture positive SNOMED Code(s): 056283146 ICD Code: Z22.322 - CARRIER OR SUSPECTED CARRIER OF METHICILLIN RESIS STAPH Status: Acute Current Visit: Yes - Discharge Plan *PRESCRIPTION DRUG MONITORING PROGRAM REVIEWED*: Not Applicable *COPY OF PRESCRIPTION DRUG MONITORING REPORT IN PATIENT JUNI: Not Applicable Home Medications: Home Meds Cholecalciferol (Vitamin D3) [Vitamin D3] 1,000 unit PO DAILY 06/07/15 [History] Calcitriol [Rocaltrol] 0.5 mcg PO DAILY 08/22/15 [History] Magnesium Oxide [Magnesium] 500 mg PO TID 07/23/17 [History] Sodium Bicarbonate 650 mg PO BID 07/23/17 [History] predniSONE [Prednisone] 10 mg PO DAILY 09/17/17 [History] Tacrolimus [Prograf] 0.5 mg PO BEDTIME 02/24/18 [History] Fluconazole [Diflucan] 200 mg PO DAILY 08/07/18 [History] Insulin Degludec [Tresiba Flextouch U-100] 15 units SQ DAILY 08/07/18 [History] carvediloL [Carvedilol] 6.25 mg PO BID 10/16/18 [History] Tacrolimus 1 mg PO DAILY 02/08/19 [History] Aspirin [Halfprin] 81 mg PO DAILY 02/20/19 [History] Pantoprazole Sodium [Protonix] 40 mg PO BID 02/20/19 [History] Gabapentin [Neurontin] 300 mg PO BID 04/02/19 [History] Isosorbide Mononitrate [Imdur] 30 mg PO DAILY 04/02/19 [History] glipiZIDE [Glucotrol] 5 mg PO DAILY 04/02/19 [History] Sulfamethoxazole/Trimethoprim [Bactrim Ds Tablet] 1 tab PO BID 04/06/19 [History ] tiZANidine [Zanaflex] 2 tab PO BEDTIME 04/06/19 [History] Patient Handouts: Pyelonephritis, Adult, [id number], Understanding Your Risk for Falls, Fall Prevention in Hospitals, Adult, Venous Thromboembolism Prevention Forms: ED Department Discharge Referrals: PCP,None [Ordering Only Provider] - - Discharge Summary/Plan Comment DC Time >30 min.: Yes Discharge Summary/Plan Comment: My plan is to discharge him home today. I will send him on doxycycline 100 mg twice a day to cover MRSA in the urine,and pneumonia. - General Info Date of Service: 04/08/19 Subjective Update: CT abdomen and pelvis revealed diverticulosis without diverticulitis, and also showed bilateral pleuritis possibly infectious/ pneumonia. His urine has also grown MRSA is sensitive to tetracycline ciprofloxacin and nitrofurantoin. Hollis feels that is improved and is to go home. Functional Status: Reports: Pain Controlled, Tolerating Diet - Review of Systems General: Reports: No Symptoms HEENT: Reports: No Symptoms Pulmonary: Reports: No Symptoms Cardiovascular: Reports: No Symptoms Gastrointestinal: Reports: No Symptoms Genitourinary: Reports: No Symptoms - Patient Data Vitals - Most Recent: Last Vital Signs Temp 99.6 F 04/08/19 03:47 Pulse 76 04/08/19 03:47 Resp 18 04/08/19 03:47 BP 128/73 04/08/19 03:47 Pulse Ox 91 L 04/08/19 03:47 Weight - Most Recent: 69.763 kg I&O - Last 24 hours: Intake & Output 04/07/19 04/08/19 04/08/19 22:59 06:59 14:59 Intake Total 250 275 Output Total 200 300 Balance 50 -25 Lab Results - Last 24 hrs: Laboratory Results - last 24 hr 04/07/19 04/07/19 04/07/19 Range/Units 07:50 07:50 08:40 Neutrophils % (Manual) 75 (46-82) % Band Neutrophils % 1 (0-6) % Lymphocytes % (Manual) 14 (13-37) % Monocytes % (Manual) 9 (4-12) % Eosinophils % (Manual) 1 (0-5) % POC Glucose (80-116) mg/dL Lactic Acid 0.4 (0.4-2.2) mmol/L C-Reactive Protein 11.8 H* (0.5-0.9) mg/dL 04/07/19 04/08/19 Range/Units 16:47 06:09 Neutrophils % (Manual) (46-82) % Band Neutrophils % (0-6) % Lymphocytes % (Manual) (13-37) % Monocytes % (Manual) (4-12) % Eosinophils % (Manual) (0-5) % POC Glucose 204 H D 139 H (80-116) mg/dL Lactic Acid (0.4-2.2) mmol/L C-Reactive Protein (0.5-0.9) mg/dL MARGARET Results - Last 24 hrs: Microbiology 04/06/19 13:16 Urine Culture - Final Urine, Voided (Mrsa) Staphylococcus Aureus Med Orders - Current: Current Medications Hydrocodone Bitart/Acetaminophen ([place] 325-5 Mg) 1 tab PO Q6H PRN PRN Reason: Pain Last Admin: 04/08/19 04:47 Dose: 1 tab Carvedilol (Coreg) 6.25 mg PO BID [facility] Last Admin: 04/07/19 20:32 Dose: Not Given Gabapentin (Neurontin) 300 mg PO BID [facility] Last Admin: 04/07/19 20:33 Dose: 300 mg Piperacillin Sod/Tazobactam (Sod 3.375 gm/ Sodium Chloride) 50 mls @ 100 mls/ hr IV Q6H [facility] Last Admin: 04/08/19 02:41 Dose: 100 mls/hr Tizanidine 2 Mg Tab (*Pt Own Med*) 0 each PO BEDTIME [facility] Last Admin: 04/07/19 20:34 Dose: 1 each Sodium Chloride (Saline Flush) 10 ml FLUSH ASDIRECTED PRN PRN Reason: Keep Vein Open Last Admin: 04/08/19 03:06 Dose: 10 ml Tacrolimus (Prograf) 0.5 mg PO BEDTIME [facility] Last Admin: 04/07/19 20:33 Dose: 0.5 mg Tacrolimus (Prograf) 1 mg PO DAILY [facility] Last Admin: 04/07/19 14:36 Dose: 1 mg Discontinued Medications Hydrocodone Bitart/Acetaminophen ([place] 325-5 Mg) 1 tab PO ONETIME ONE Stop: 04/06/19 15:02 Last Admin: 04/06/19 15:09 Dose: 1 tab Gabapentin (Neurontin) 300 mg PO ONETIME ONE Stop: 04/06/19 20:16 Last Admin: 04/06/19 20:22 Dose: 300 mg Sodium Chloride (Normal Saline) 1,000 mls @ 999 mls/hr IV ASDIRECTED [facility] Stop: 04/07/19 15:16 Last Admin: 04/06/19 16:21 Dose: 999 mls/hr - Exam General: Reports: Alert, Oriented HEENT: Reports: Pupils Equal Neck: Reports: +2 Carotid Pulse wo Bruit Lungs: Reports: Clear to Auscultation Cardiovascular: Reports: Regular Rate
[2019-04-08] MEDS: Gabapentin 300 MG Cap *PTOM PO SCH (09:37)
[2019-04-08] MEDS: Carvedilol 6.25 MG Tab *PTOM PO SCH (09:37)
[2019-04-08] MEDS: TACROLIMUS 1 MG PO SCH (09:38)
[2019-04-08] MEDS ORDERED: Tuberculin, PPD 5 Units/0.1 ML 1 ML MDV IDERM ONE (10:17)
[2019-04-08 13:50] VITALS: BP 123/72; PULSE 75
== END 2019-04-08 11:45 | disposition home health service (06) ==
LOC: FB.ED 12:46 → FB.MS 16:20
PROVIDERS: ADMIT Family Medicine; ATTEND Family Medicine
DX: R10.32 Left lower quadrant pain (principal); N10 Acute pyelonephritis; B96.89 Other specified bacterial agents as the cause of diseases classified elsewhere; G89.29 Other chronic pain; M54.5 Low back pain; I12.9 Hypertensive chronic kidney disease with stage 1 through stage 4 chronic kidney disease, or unspecified chronic kidney disease; E11.22 Type 2 diabetes mellitus with diabetic chronic kidney disease; E11.65 Type 2 diabetes mellitus with hyperglycemia; N18.2 Chronic kidney disease, stage 2 (mild); N17.9 Acute kidney failure, unspecified; D63.1 Anemia in chronic kidney disease; I25.10 Atherosclerotic heart disease of native coronary artery without angina pectoris; E78.00 Pure hypercholesterolemia, unspecified; I25.2 Old myocardial infarction; F41.9 Anxiety disorder, unspecified; F32.9 Major depressive disorder, single episode, unspecified; E20.9 Hypoparathyroidism, unspecified; D46.9 Myelodysplastic syndrome, unspecified; Z79.4 Long term (current) use of insulin; Z79.899 Other long term (current) drug therapy; Z22.322 Carrier or suspected carrier of Methicillin resistant Staphylococcus aureus; Z94.0 Kidney transplant status; Z95.5 Presence of coronary angioplasty implant and graft
CPT/HCPCS: 36415; 74176; 76770; 80053; 80197; 81001; 82272; 82962; 83605; 85025; 86140; 86580; 87086; 87088; 87186; 96361; 96365; 96366; 96376; 99285-25; A9270-GY; G0378; J2543; J7030; J7050

== ENCOUNTER 2019-08-21 10:02 | Emergency (ER) | payer MEDICARE, MEDICAID ==
--- NOTE | 2019-08-21 10:53 | EDM.PDOC ---
ED HPI GENERAL MEDICAL PROBLEM - General Stated Complaint: POSSIBLE BLADDER INFECTION Time Seen by Provider: 08/21/19 10:45 Source of Information: Reports: Patient History Limitations: Reports: No Limitations - History of Present Illness INITIAL COMMENTS - FREE TEXT/NARRATIVE: Patient presented to the ED because of dysuria and frquncy for 2 days. there is no associated,fever,N/V or flank pain. He had 2 previous UTI's which grew MRSA. Left Lower Abdomen Pain Score (Numeric/FACES): 9 - Related Data Allergies Allergy/AdvReac Type Severity Reaction Status Date / Time No Known Allergies Allergy Verified 07/25/19 09:22 Home Meds: Home Meds Cholecalciferol (Vitamin D3) [Vitamin D3] 1,000 unit PO DAILY 06/07/15 [History] calcitrioL [Rocaltrol] 0.5 mcg PO DAILY 08/22/15 [History] Magnesium Oxide [Magnesium] 500 mg PO TID 07/23/17 [History] Sodium Bicarbonate 650 mg PO BID 07/23/17 [History] predniSONE [Prednisone] 10 mg PO DAILY 09/17/17 [History] Tacrolimus [Prograf] 0.5 mg PO BEDTIME 02/24/18 [History] Fluconazole [Diflucan] 200 mg PO DAILY 08/07/18 [History] Insulin Degludec [Tresiba Flextouch U-100] 15 units SQ DAILY 08/07/18 [History] carvediloL [Carvedilol] 6.25 mg PO BID 10/16/18 [History] Tacrolimus 1 mg PO DAILY 02/08/19 [History] Aspirin [Halfprin] 81 mg PO DAILY 02/20/19 [History] Pantoprazole Sodium [Protonix] 40 mg PO BID 02/20/19 [History] Gabapentin [Neurontin] 600 mg PO BID 04/02/19 [History] Isosorbide Mononitrate [Imdur] 30 mg PO DAILY 04/02/19 [History] glipiZIDE [Glucotrol] 5 mg PO DAILY 04/02/19 [History] tiZANidine [Zanaflex] 2 tab PO BEDTIME 04/06/19 [History] Sulfamethoxazole/Trimethoprim [Bactrim Ds Tablet] 1 each PO BID #14 tablet 08/20 [Rx] traMADol [Ultram] 50 mg PO Q6H PRN #10 tab 08/21/19 [Rx] Past Medical History HEENT History: Reports: Impaired Vision Other HEENT History: Pt wears glasses Cardiovascular History: Reports: CAD, High Cholesterol, UT, Stents, Other (See Below) Other Cardiovascular History: viral menigitis 2015 (also "had [place] 09/2017 [place] put in a stent" this recorded on 09/14/17) Respiratory History: Reports: Other (See Below) Gastrointestinal History: Reports: Cholelithiasis, Colon Polyp, Diverticulosis, Hemorrhoids Genitourinary History: Reports: Renal Disease, UTI, Recurrent, Other (See Below) Other Genitourinary History: kidney transplant (2001) pts fistula was removed early may 2017 from left arm Musculoskeletal History: Reports: Back Pain, Chronic Other Musculoskeletal History: has lump on neck vein and will need it removed Neurological History: Reports: Other (See Below) Other Neuro History: Cryptococcal meningitis Psychiatric History: Reports: Addiction, Anxiety, Depression, Panic Attack, Other (See Below) Other Psychiatric History: gets mildly depressed. POST ALCOHOLIC 1998 Endocrine/Metabolic History: Reports: Diabetes, Type II, Hypoparathyroidism Hematologic History: Reports: Anemia, Blood Transfusion(s) Other Hematologic History: myelodysplastic syndrome Immunologic History: Reports: Immunosuppression, Solid Organ Transplant Other Immunologic History: kidney transplant 2001 Oncologic (Cancer) History: Reports: None Dermatologic History: Reports: None - Infectious Disease History Infectious Disease History: Reports: None - Past Surgical History Head Surgeries/Procedures: Reports: None HEENT Surgical History: Reports: None Cardiovascular Surgical History: Reports: Coronary Artery Stent GI Surgical History: Reports: Appendectomy, Cholecystectomy, Colonoscopy Male Surgical History: Reports: Other (See Below) Other Male Surgeries/Procedures: kidney transplant in 2001 Endocrine Surgical History: Reports: Other (See Below) Other Endocrine Surgeries/Procedures: had thyroid removed Musculoskeletal Surgical History: Reports: Hip Replacement Other Musculoskeletal Surgeries/Procedures:: both hips-replaced Social & Family History - Family History Family Medical History: Noncontributory Cardiac: Reports: CAD, Other (See Below) Other Cardiac Family History: Brother had bypass GI: Reports: None OBGYN: Reports: None, Musculoskeletal: Reports: None Neurological: Reports: None Psychiatric: Reports: None Endocrine/Metabolic: Reports: Diabetes, type II Immunologic: Reports: None - Caffeine Use Caffeine Use: Reports: Coffee Other Caffeine Use: 2-3 cups per day Caffeine Use Comment: 2-3 cups/day - Living Situation & Occupation Living situation: Reports: Alone Occupation: Disabled ED ROS GENERAL - Review of Systems Review Of Systems: See Below Constitutional: Reports: No Symptoms HEENT: Reports: No Symptoms Respiratory: Reports: No Symptoms Cardiovascular: Reports: No Symptoms Endocrine: Reports: No Symptoms GI/Abdominal: Denies: Nausea : Reports: Dysuria, Frequency, Urgency. Denies: Flank Pain Musculoskeletal: Reports: No Symptoms Skin: Reports: No Symptoms ED EXAM, RENAL/ - Physical Exam Exam: See Below Exam Limited By: No Limitations General Appearance: Alert, No Apparent Distress Ears: Normal External Exam, Normal Canal Nose: Normal Inspection, Normal Mucosa Throat/Mouth: Normal Inspection, Normal Lips, Normal Teeth Head: Atraumatic, Normocephalic Neck: Normal Inspection, Supple, Non-Tender Respiratory/Chest: No Respiratory Distress, Lungs Clear, Normal Breath Sounds Cardiovascular: Normal Peripheral Pulses, Regular Rate, Rhythm, No Edema, No Gallop GI/Abdominal: Normal Bowel Sounds, Soft, No Organomegaly, Other (suprapubic tenderness) Course - Vital Signs Text/Narrative:: UA-see result UC-pending Last Recorded V/S: Last Vital Signs Temp 36.9 C 08/21/19 10:37 Pulse 84 08/21/19 10:37 Resp 16 08/21/19 10:37 BP 123/70 08/21/19 10:37 Pulse Ox 100 08/21/19 10:37 - Orders/Labs/Meds Orders: Active Orders 24 hr Category Date Time Status CULTURE URINE [RM] Stat Lab 08/21/19 11:02 Received Labs: Laboratory Tests 08/21/19 Range/Units 11:02 Urine Color Yellow (YELLOW) Urine Appearance Cloudy (CLEAR) Urine pH 6.0 (5.0-6.5) Ur Specific [place] 1.010 (1.010-1.025) Urine Protein 30 H (NEGATIVE) mg/dL Urine Glucose (UA) Normal (NORMAL) mg/dL Urine Ketones Negative (NEGATIVE) mg/dL Urine Occult Blood Large H (NEGATIVE) Urine Nitrite Negative (NEGATIVE) Urine Bilirubin Negative (NEGATIVE) Urine Urobilinogen Normal (NEGATIVE) mg/dL Ur Leukocyte Esterase Large H (NEGATIVE) Urine RBC >100 H (0-5) Urine WBC Packed H (0-5) Ur Squamous Epith Cells Few H (NS,R,O) Urine Bacteria Many H (NS) Departure - Departure Time of Disposition: 10:45 Disposition: Home, Self-Care 01 Condition: Good Clinical Impression: UTI (urinary tract infection) - Discharge Information Prescriptions: Sulfamethoxazole/Trimethoprim [Bactrim Ds Tablet] 1 each PO BID #14 tablet traMADol [Ultram] 50 mg PO Q6H PRN #10 tab PRN Reason: Pain Instructions: Urinary Tract Infection, Adult, [id number] Referrals: Janice Casper PA [Primary Care Provider] - Forms: ED Department Discharge Additional Instructions: please read discharge instructions on UTI increase oral fluids tramadol 50 mg every 6 hours as needed for pain take Bactrim DS, 1 tablet twice daily for 7 days return to the ED if you develop fever(Temp of 100.4'F and aboeve), nausea, vomiting flank pain because these are sighns and symptoms of a kidney infection Sepsis Event Note - Focused Exam Vital Signs: Vital Signs Temp Pulse Resp BP Pulse Ox 08/21/19 10:37 36.9 C 84 16 123/70 100 Date Exam was Performed: 08/21/19 Time Exam was Performed: 11:59 - My Orders Last 24 Hours: My Active Orders 08/21/19 11:02 CULTURE URINE [RM] Stat - Assessment/Plan Last 24 Hours: My Active Orders 08/21/19 11:02 CULTURE URINE [RM] Stat
[2019-08-21 12:48] VITALS: BP 133/61; PULSE 80
== END 2019-08-21 11:24 | disposition home or self-care (01) ==
LOC: FB.ED 10:02
DX: N39.0 Urinary tract infection, site not specified (principal); E11.9 Type 2 diabetes mellitus without complications; I25.10 Atherosclerotic heart disease of native coronary artery without angina pectoris; E78.00 Pure hypercholesterolemia, unspecified; I25.2 Old myocardial infarction; F41.0 Panic disorder [episodic paroxysmal anxiety]; F32.9 Major depressive disorder, single episode, unspecified; E20.9 Hypoparathyroidism, unspecified; Z79.82 Long term (current) use of aspirin; Z79.4 Long term (current) use of insulin; Z79.899 Other long term (current) drug therapy
CPT/HCPCS: 81001; 87086; 87088; 87186; 99283

== ENCOUNTER 2019-11-01 10:46 | Emergency (ER) | payer MEDICARE, MEDICAID ==
[2019-11-01] MEDS ORDERED: Sodium Chloride 0.9% 10 ML Syringe FLUSH PRN (12:24)
[2019-11-01] MEDS ORDERED: HYDROmorphone 2 MG/ML SDV IVPUSH ONE (12:26)
[2019-11-01] MEDS ORDERED: Sodium Chloride 0.9% 1,000 ML IV SCH (12:30)
--- NOTE | 2019-11-01 12:33 | EDM.PDOC ---
ED HPI GENERAL MEDICAL PROBLEM - General Chief Complaint: Genitourinary Problem Stated Complaint: KIDNEY INFECTION Time Seen by Provider: 11/01/19 12:28 Source of Information: Reports: Patient History Limitations: Reports: No Limitations - History of Present Illness INITIAL COMMENTS - FREE TEXT/NARRATIVE: Presents with LLQ abdominal pain associated with urinary frequency and dysuria. Patient believes he may have a kidney infection. PMHx includes Kidney Transplant (2001), Myelodysplastic syndrome (with frequent transfusions), CKD, T2DM, CAD, and MRSA UTI. Denies back pain, nausea, fevers, or chills. Onset Date: 10/31/19 Location: Reports: Abdomen Quality: Reports: Ache Severity: Moderate KIDNEY FLANK Pain Score (Numeric/FACES): 6 - Related Data Allergies Allergy/AdvReac Type Severity Reaction Status Date / Time No Known Allergies Allergy Verified 10/13/19 10:19 Home Meds: Home Meds Cholecalciferol (Vitamin D3) [Vitamin D3] 1,000 unit PO DAILY 06/07/15 [History] calcitrioL [Rocaltrol] 0.5 mcg PO DAILY 08/22/15 [History] Magnesium Oxide [Magnesium] 500 mg PO TID 07/23/17 [History] Sodium Bicarbonate 650 mg PO BID 07/23/17 [History] predniSONE [Prednisone] 10 mg PO DAILY 09/17/17 [History] Tacrolimus [Prograf] 0.5 mg PO BEDTIME 02/24/18 [History] Fluconazole [Diflucan] 200 mg PO DAILY 08/07/18 [History] Insulin Degludec [Tresiba Flextouch U-100] 15 units SQ DAILY 08/07/18 [History] carvediloL [Carvedilol] 6.25 mg PO BID 10/16/18 [History] Tacrolimus 1 mg PO DAILY 02/08/19 [History] Aspirin [Halfprin] 81 mg PO DAILY 02/20/19 [History] Pantoprazole Sodium [Protonix] 40 mg PO BID 02/20/19 [History] Gabapentin [Neurontin] 600 mg PO BID 04/02/19 [History] Isosorbide Mononitrate [Imdur] 30 mg PO DAILY 04/02/19 [History] glipiZIDE [Glucotrol] 5 mg PO DAILY 04/02/19 [History] tiZANidine [Zanaflex] 2 tab PO BEDTIME 04/06/19 [History] traMADol [Ultram] 50 mg PO Q6H PRN #10 tab 08/21/19 [Rx] Nitrofurantoin Monohyd/M-Cryst [Macrobid 100 mg Capsule] 100 mg PO BID #20 capsule 11/01/19 [Rx] Past Medical History HEENT History: Reports: Impaired Vision Other HEENT History: Pt wears glasses Cardiovascular History: Reports: CAD, High Cholesterol, AK, Stents, Other (See Below) Other Cardiovascular History: viral menigitis 2015 (also "had AK 09/2017 went to [place] they put in a stent" this recorded on 09/14/17) Respiratory History: Reports: Other (See Below) Gastrointestinal History: Reports: Cholelithiasis, Colon Polyp, Diverticulosis, Hemorrhoids Genitourinary History: Reports: Renal Disease, UTI, Recurrent, Other (See Below) Other Genitourinary History: kidney transplant (2001) pts fistula was removed early may 2017 from left arm Musculoskeletal History: Reports: Back Pain, Chronic Other Musculoskeletal History: has lump on neck vein and will need it removed Neurological History: Reports: Other (See Below) Other Neuro History: Cryptococcal meningitis Psychiatric History: Reports: Addiction, Anxiety, Depression, Panic Attack, Other (See Below) Other Psychiatric History: gets mildly depressed. POST ALCOHOLIC 1998 Endocrine/Metabolic History: Reports: Diabetes, Type II, Hypoparathyroidism Hematologic History: Reports: Anemia, Blood Transfusion(s) Other Hematologic History: myelodysplastic syndrome Immunologic History: Reports: Immunosuppression, Solid Organ Transplant Other Immunologic History: kidney transplant 2001 Oncologic (Cancer) History: Reports: None Dermatologic History: Reports: None - Infectious Disease History Infectious Disease History: Reports: Chicken Pox Other Infectious Disease History: MRSA-urine - Past Surgical History Head Surgeries/Procedures: Reports: None HEENT Surgical History: Reports: None Cardiovascular Surgical History: Reports: Coronary Artery Stent GI Surgical History: Reports: Appendectomy, Cholecystectomy, Colonoscopy Male Surgical History: Reports: Other (See Below) Other Male Surgeries/Procedures: kidney transplant in 2001 Endocrine Surgical History: Reports: Other (See Below) Other Endocrine Surgeries/Procedures: had thyroid removed Musculoskeletal Surgical History: Reports: Hip Replacement Other Musculoskeletal Surgeries/Procedures:: both hips-replaced Social & Family History - Family History Family Medical History: Noncontributory Cardiac: Reports: CAD, Other (See Below) Other Cardiac Family History: Brother had bypass GI: Reports: None OBGYN: Reports: None, Musculoskeletal: Reports: None Neurological: Reports: None Psychiatric: Reports: None Endocrine/Metabolic: Reports: Diabetes, type II Immunologic: Reports: None - Caffeine Use Caffeine Use: Reports: Coffee, Soda Other Caffeine Use: 2-3 cups per day Caffeine Use Comment: 2-3 cups/day - Living Situation & Occupation Living situation: Reports: Alone Occupation: Disabled ED ROS GENERAL - Review of Systems Review Of Systems: Comprehensive ROS is negative, except as noted in HPI. ED EXAM, GI/ABD - Physical Exam Exam: See Below Exam Limited By: No Limitations General Appearance: Alert, WD/WN, No Apparent Distress Throat/Mouth: No Airway Compromise Head: Atraumatic, Normocephalic Neck: Full Range of Motion Respiratory/Chest: No Respiratory Distress, Lungs Clear, Normal Breath Sounds Cardiovascular: Regular Rate, Rhythm, Systolic Murmur GI/Abdominal Exam: Normal Bowel Sounds, Soft, Tender (LLQ). No: Guarding, Rebound Back Exam: Normal Inspection Extremities: Normal Range of Motion Neurological: Alert, Normal Cognition Psychiatric: Normal Affect, Normal Mood Skin Exam: Warm, Dry, Intact Course - Vital Signs Last Recorded V/S: Last Vital Signs Temp Pulse 69 11/01/19 14:31 Resp 14 11/01/19 14:31 BP 130/72 11/01/19 14:31 Pulse Ox 98 11/01/19 14:31 T 98F - Orders/Labs/Meds Orders: Active Orders 24 hr Category Date Time Status Abdomen Pelvis wo Cont [CT] Stat Exams 11/01/19 12:26 Taken CULTURE BLOOD [BC] Urgent Lab 11/01/19 14:25 Received CULTURE BLOOD [BC] Urgent Lab 11/01/19 14:35 Received CULTURE URINE [RM] Stat Lab 11/01/19 12:35 Received Sodium Chloride 0.9% [Normal Saline] 1,000 ml Med 11/01/19 12:30 Active IV ASDIRECTED Sodium Chloride 0.9% [Saline Flush] Med 11/01/19 12:24 Active 10 ml FLUSH ASDIRECTED PRN Blood Culture x2 Reflex Set [OM.PC] Urgent Oth 11/01/19 13:14 Ordered Saline Lock Insert [OM.PC] Routine Oth 11/01/19 12:24 Ordered Medication Orders Sodium Chloride (Normal Saline) 1,000 mls @ 100 mls/hr IV ASDIRECTED LARON Last Admin: 11/01/19 13:08 Dose: 100 mls/hr Documented by: SAÚL Sodium Chloride (Saline Flush) 10 ml FLUSH ASDIRECTED PRN PRN Reason: Keep Vein Open Labs: Laboratory Tests 11/01/19 11/01/19 11/01/19 Range/Units 12:44 12:50 12:50 WBC 3.1 L (4.5-12.0) X10-3/uL RBC 2.85 L (4.30-5.75) x10(6)uL Hgb 8.6 L (13.5-17.8) g/dL Hct 26.4 L (30.0-51.3) % MCV 92.6 (80-96) fL MCH 30.2 (27.7-33.6) pg MCHC 32.6 (32.2-35.4) g/dL RDW 12.8 (11.5-15.5) % Plt Count 22 L* (125-369) X10(3)uL MPV 9.4 (7.4-10.4) fL Add Manual Diff Yes Neutrophils % (Manual) 50 (46-82) % Lymphocytes % (Manual) 31 (13-37) % Monocytes % (Manual) 12 (4-12) % Eosinophils % (Manual) 1 (0-5) % Basophils % (Manual) 2 (0-2) % Metamyelocytes % 2 H (0-0) % Myelocytes % 2 H (0-0) % Polychromasia Microcytosis Moderate H Sodium 137 (135-145) mmol/L Potassium 4.8 (3.5-5.3) mmol/L Chloride 101 (100-110) mmol/L Carbon Dioxide 30 (21-32) mmol/L BUN 53 H D (7-18) mg/dL Creatinine 1.9 H (0.70-1.30) mg/dL Est Cr Clr Drug Dosing 37.78 mL/min Estimated GFR (MDRD) 36 L (>60) BUN/Creatinine Ratio 27.9 H (9-20) Glucose 251 H D (80-116) mg/dL Lactic Acid (0.4-2.0) mmol/L Calcium 7.6 L (8.6-10.2) mg/dL Total Bilirubin 0.4 (0.1-1.3) mg/dL AST 51 H D (5-25) IU/L ALT 87 H D (12-36) U/L Alkaline Phosphatase 216 H (56-112) IU/L Total Protein 6.3 (6.0-8.0) g/dL Albumin 2.6 L (3.5-5.2) g/dL Globulin 3.7 g/dL Albumin/Globulin Ratio 0.7 Lipase (73-393) U/L Urine Color Yellow (YELLOW) Urine Appearance Cloudy (CLEAR) Urine pH 5.0 (5.0-6.5) Ur Specific [place] 1.010 (1.010-1.025) Urine Protein 30 H (NEGATIVE) mg/dL Urine Glucose (UA) Normal (NORMAL) mg/dL Urine Ketones Negative (NEGATIVE) mg/dL Urine Occult Blood Large H (NEGATIVE) Urine Nitrite Negative (NEGATIVE) Urine Bilirubin Negative (NEGATIVE) Urine Urobilinogen Normal (NEGATIVE) mg/dL Ur Leukocyte Esterase Large H (NEGATIVE) Urine WBC Packed H (0-5) 11/01/19 11/01/19 Range/Units 12:50 14:25 WBC (4.5-12.0) X10-3/uL RBC (4.30-5.75) x10(6)uL Hgb (13.5-17.8) g/dL Hct (30.0-51.3) % MCV (80-96) fL MCH (27.7-33.6) pg MCHC (32.2-35.4) g/dL RDW (11.5-15.5) % Plt Count (125-369) X10(3)uL MPV (7.4-10.4) fL Add Manual Diff Neutrophils % (Manual) (46-82) % Lymphocytes % (Manual) (13-37) % Monocytes % (Manual) (4-12) % Eosinophils % (Manual) (0-5) % Basophils % (Manual) (0-2) % Metamyelocytes % (0-0) % Myelocytes % (0-0) % Polychromasia Microcytosis Sodium (135-145) mmol/L Potassium (3.5-5.3) mmol/L Chloride (100-110) mmol/L Carbon Dioxide (21-32) mmol/L BUN (7-18) mg/dL Creatinine (0.70-1.30) mg/dL Est Cr Clr Drug Dosing mL/min Estimated GFR (MDRD) (>60) BUN/Creatinine Ratio (9-20) Glucose (80-116) mg/dL Lactic Acid 0.9 (0.4-2.0) mmol/L Calcium (8.6-10.2) mg/dL Total Bilirubin (0.1-1.3) mg/dL AST (5-25) IU/L ALT (12-36) U/L Alkaline Phosphatase (56-112) IU/L Total Protein (6.0-8.0) g/dL Albumin (3.5-5.2) g/dL Globulin g/dL Albumin/Globulin Ratio Lipase 75 (73-393) U/L Urine Color (YELLOW) Urine Appearance (CLEAR) Urine pH (5.0-6.5) Ur Specific [place] (1.010-1.025) Urine Protein (NEGATIVE) mg/dL Urine Glucose (UA) (NORMAL) mg/dL Urine Ketones (NEGATIVE) mg/dL Urine Occult Blood (NEGATIVE) Urine Nitrite (NEGATIVE) Urine Bilirubin (NEGATIVE) Urine Urobilinogen (NEGATIVE) mg/dL Ur Leukocyte Esterase (NEGATIVE) Urine WBC (0-5) Meds: Medications Generic Name Dose Route Start Last Admin Trade Name Freq PRN Reason Stop Dose Admin Sodium Chloride 1,000 mls @ 100 mls/hr 11/01/19 12:30 11/01/19 13:08 Normal Saline IV 100 mls/hr ASDIRECTED LARON Administration Sodium Chloride 10 ml 11/01/19 12:24 Saline Flush FLUSH ASDIRECTED PRN Keep Vein Open Discontinued Medications Generic Name Dose Route Start Last Admin Trade Name Freq PRN Reason Stop Dose Admin Hydromorphone HCl 0.5 mg 11/01/19 12:26 11/01/19 13:09 Dilaudid IVPUSH 11/01/19 12:27 0.5 mg ONETIME ONE Administration Sodium Chloride 500 mls @ 500 mls/hr 11/01/19 13:16 11/01/19 13:20 Normal Saline IV 11/01/19 14:15 500 mls/hr .BOLUS ONE Administration Nitrofurantoin Macrocrystals 100 mg 11/01/19 15:05 Macrobid PO 11/01/19 15:06 ONETIME ONE - Radiology Interpretation Free Text/Narrative:: Study: CT Abdomen/Pelvis -11/01/2019 12:50:24 PM Ordering Physician: MATTI Final Report: INDICATION: Left lower quadrant pain. History of left lower quadrant renal transplant. COMPARISON: [address] TECHNIQUE: Noncontrast images. FINDINGS: Correlative high attenuation of liver and spleen likely iron deposition. Medication related high attenuation also a consideration. Small cyst segment 3 left liver. Cholecystectomy clips. Somewhat atrophied pancreas. Prominently atrophied minto kidneys. Diverticula of the colon. No acute inflammation. No dilatation or inflammation of large or small bowel. Extraperitoneal left pelvic transplant kidney. No change in appearance from comparison. No hydronephrosis. No increase the para renal stranding. Bilateral hip prostheses. Urinary bladder is incompletely distended with somewhat thick-walled appearance. IMPRESSION: 1. Unchanged appearance of left pelvic extraperitoneal kidney. 2. Somewhat thick-walled urinary bladder. Correlation with cystitis recommended. 3. Colonic diverticulosis. 4. Chronic high attenuation of liver and spleen parenchyma likely iron deposition related. Please note that all CT scans at this facility use dose modulation, iterative reconstruction, and/or weight-based dosing when appropriate to reduce radiation dose to as low as reasonably achievable. Dictated by Grady Carter MD @ Nov 01 2019 1:19PM (Electronic Signature) - Re-Assessments/Exams Free Text/Narrative Re-Assessment/Exam: 11/01/19 15:19 Pain improved after Dilaudid 0.5mg IV. 11/01/19 15:26 Previous lab values (04/07/19): WBC 5.0, Hb 8.0, Plt 32, BUN 30, Creat 1.7. Departure - Departure Time of Disposition: 15:20 Disposition: Home, Self-Care 01 Condition: Good Clinical Impression: UTI (urinary tract infection) Qualifiers: Urinary tract infection type: acute cystitis Hematuria presence: with hematuria Qualified Code(s): N30.01 - Acute cystitis with hematuria - Discharge Information *PRESCRIPTION DRUG MONITORING PROGRAM REVIEWED*: No *COPY OF PRESCRIPTION DRUG MONITORING REPORT IN PATIENT JUNI: Not Applicable Prescriptions: Nitrofurantoin Monohyd/M-Cryst [Macrobid 100 mg Capsule] 100 mg PO BID #20 capsule Instructions: Urinary Tract Infection, Adult, [id number] Referrals: Janice Casper PA [Primary Care Provider] - 2 Days Forms: ED Department Discharge Additional Instructions: Fill the prescription for Macrobid at [facility] and take as directed. Drink plenty of fluids. Follow up with your primary physician in 2 days. Return to the ER if symptoms worsen. Sepsis Event Note (ED) - Focused Exam Vital Signs: Vital Signs Pulse Resp BP Pulse Ox 11/01/19 14:31 69 14 130/72 98 - My Orders Last 24 Hours: My Active Orders 11/01/19 12:24 Sodium Chloride 0.9% [Saline Flush] 10 ml FLUSH ASDIRECTED PRN Saline Lock Insert [OM.PC] Routine 11/01/19 12:26 Abdomen Pelvis wo Cont [CT] Stat 11/01/19 12:30 Sodium Chloride 0.9% [Normal Saline] 1,000 ml IV ASDIRECTED 11/01/19 12:35 CULTURE URINE [RM] Stat 11/01/19 13:14 Blood Culture x2 Reflex Set [OM.PC] Urgent 11/01/19 14:25 CULTURE BLOOD [BC] Urgent 11/01/19 14:35 CULTURE BLOOD [BC] Urgent - Assessment/Plan Last 24 Hours: My Active Orders 11/01/19 12:24 Sodium Chloride 0.9% [Saline Flush] 10 ml FLUSH ASDIRECTED PRN Saline Lock Insert [OM.PC] Routine 11/01/19 12:26 Abdomen Pelvis wo Cont [CT] Stat 11/01/19 12:30 Sodium Chloride 0.9% [Normal Saline] 1,000 ml IV ASDIRECTED 11/01/19 12:35 CULTURE URINE [RM] Stat 11/01/19 13:14 Blood Culture x2 Reflex Set [OM.PC] Urgent 11/01/19 14:25 CULTURE BLOOD [BC] Urgent 11/01/19 14:35 CULTURE BLOOD [BC] Urgent
[2019-11-01] MEDS ORDERED: Sodium Chloride 0.9% 500 ML IV ONE (13:16)
[2019-11-01 14:32] VITALS: BP 130/72; PULSE 69
[2019-11-01] MEDS ORDERED: Nitrofurantoin Monohydrate/Macrocrystalline 100 MG Cap PO ONE (15:05)
== END 2019-11-01 15:40 | disposition home or self-care (01) ==
LOC: FB.ED 10:46
DX: N30.01 Acute cystitis with hematuria (principal); N18.9 Chronic kidney disease, unspecified; I25.10 Atherosclerotic heart disease of native coronary artery without angina pectoris; E78.00 Pure hypercholesterolemia, unspecified; I25.2 Old myocardial infarction; E11.9 Type 2 diabetes mellitus without complications; Z79.4 Long term (current) use of insulin; Z79.82 Long term (current) use of aspirin; Z79.899 Other long term (current) drug therapy; Z95.5 Presence of coronary angioplasty implant and graft
CPT/HCPCS: 36415; 74176; 80053; 81001; 83605; 83690; 85025; 87040; 87086; 87088; 87186; 96361; 96374; 99284; A9270; J1170; J7030; J7040; 99283

== ENCOUNTER 2019-11-29 08:18 | Emergency (ER) | payer MEDICARE, MEDICAID ==
[2019-11-29] MEDS ORDERED: Acetaminophen/HYDROcodone 325-5 MG Tab PO ONE (08:19)
--- NOTE | 2019-11-29 09:17 | EDM.PDOC ---
ED HPI GENERAL MEDICAL PROBLEM - General Chief Complaint: Abdominal Pain Time Seen by Provider: 11/29/19 08:45 Source of Information: Reports: Patient History Limitations: Reports: No Limitations - History of Present Illness INITIAL COMMENTS - FREE TEXT/NARRATIVE: c/o abd pain pt had LLQ pain onset at 3:10a, 5 hr [employer], has had chronic loose stools with a loose BM after arrival, has inc'd pain with eating/BM/deep breath pain is sharp, says he has not had similar pain in the past, has had a kidney stone in the past no f/c/d, no n/v ate a bfast sandwich for bfast lives alone with his dogs pt received PRBC x 2 and plts x 2 yesterday, got home from hosp at 8:30p declined IVF now PSH includes appy, choly, THR x 2 in 2000, kidney transplant ([facility] [place] kidneys are atrophic and still present) h/o MRSA in urine x 3 in past 6m, including 1m ago Left Lower Abdomen Pain Score (Numeric/FACES): 8 - Related Data Allergies Allergy/AdvReac Type Severity Reaction Status Date / Time No Known Allergies Allergy Verified 11/09/19 12:58 Home Meds: Home Meds Cholecalciferol (Vitamin D3) [Vitamin D3] 1,000 unit PO DAILY 06/07/15 [History] calcitrioL [Rocaltrol] 0.5 mcg PO DAILY 08/22/15 [History] Magnesium Oxide [Magnesium] 500 mg PO TID 07/23/17 [History] Sodium Bicarbonate 650 mg PO BID 07/23/17 [History] predniSONE [Prednisone] 10 mg PO DAILY 09/17/17 [History] Tacrolimus [Prograf] 0.5 mg PO BEDTIME 02/24/18 [History] Fluconazole [Diflucan] 200 mg PO DAILY 08/07/18 [History] Insulin Degludec [Tresiba Flextouch U-100] 15 units SQ DAILY 08/07/18 [History] carvediloL [Carvedilol] 6.25 mg PO BID 10/16/18 [History] Tacrolimus 1 mg PO DAILY 02/08/19 [History] Aspirin [Halfprin] 81 mg PO DAILY 02/20/19 [History] Pantoprazole Sodium [Protonix] 40 mg PO BID 02/20/19 [History] Gabapentin [Neurontin] 600 mg PO BID 04/02/19 [History] Isosorbide Mononitrate [Imdur] 30 mg PO DAILY 04/02/19 [History] glipiZIDE [Glucotrol] 5 mg PO DAILY 04/02/19 [History] tiZANidine [Zanaflex] 2 tab PO BEDTIME 04/06/19 [History] traMADol [Ultram] 50 mg PO Q6H PRN #10 tab 08/21/19 [Rx] Nitrofurantoin Monohyd/M-Cryst [Macrobid 100 mg Capsule] 100 mg PO BID #20 capsule 11/01/19 [Rx] Ciprofloxacin [Ciprofloxacin HCl] 500 mg PO BID #14 tab 11/29/19 [Rx] metroNIDAZOLE [Metronidazole] 500 mg PO TID #21 tablet 11/29/19 [Rx] oxyCODONE 5 mg PO Q6H #10 tab 11/29/19 [Rx] Past Medical History HEENT History: Reports: Impaired Vision Other HEENT History: Pt wears glasses Cardiovascular History: Reports: CAD, High Cholesterol, [place], Stents, Other (See Below) Other Cardiovascular History: viral menigitis 2015 (also "had [place] 09/2017 went to [place] they put in a stent" this recorded on 09/14/17) Respiratory History: Reports: Other (See Below) Gastrointestinal History: Reports: Cholelithiasis, Colon Polyp, Diverticulosis, Hemorrhoids Genitourinary History: Reports: Renal Disease, UTI, Recurrent, Other (See Below) Other Genitourinary History: kidney transplant (2001) pts fistula was removed early may 2017 from left arm Musculoskeletal History: Reports: Back Pain, Chronic Other Musculoskeletal History: has lump on neck vein and will need it removed Neurological History: Reports: Other (See Below) Other Neuro History: Cryptococcal meningitis Psychiatric History: Reports: Addiction, Anxiety, Depression, Panic Attack, Other (See Below) Other Psychiatric History: gets mildly depressed. POST ALCOHOLIC 1998 Endocrine/Metabolic History: Reports: Diabetes, Type II, Hypoparathyroidism Hematologic History: Reports: Anemia, Blood Transfusion(s) Other Hematologic History: myelodysplastic syndrome Immunologic History: Reports: Immunosuppression, Solid Organ Transplant Other Immunologic History: kidney transplant 2001 Oncologic (Cancer) History: Reports: None Dermatologic History: Reports: None - Infectious Disease History Infectious Disease History: Reports: MRSA Other Infectious Disease History: MRSA-urine - Past Surgical History Head Surgeries/Procedures: Reports: None HEENT Surgical History: Reports: None Cardiovascular Surgical History: Reports: Coronary Artery Stent GI Surgical History: Reports: Appendectomy, Cholecystectomy, Colonoscopy Male Surgical History: Reports: Other (See Below) Other Male Surgeries/Procedures: kidney transplant in 2001 Endocrine Surgical History: Reports: Other (See Below) Other Endocrine Surgeries/Procedures: had thyroid removed Musculoskeletal Surgical History: Reports: Hip Replacement Other Musculoskeletal Surgeries/Procedures:: both hips-replaced Social & Family History - Family History Family Medical History: Noncontributory Cardiac: Reports: CAD, Other (See Below) Other Cardiac Family History: Brother had bypass GI: Reports: None OBGYN: Reports: None, Musculoskeletal: Reports: None Neurological: Reports: None Psychiatric: Reports: None Endocrine/Metabolic: Reports: Diabetes, type II Immunologic: Reports: None - Tobacco Use Smoking Status *Q: Unknown Ever Smoked - Caffeine Use Caffeine Use: Reports: Coffee Other Caffeine Use: 2-3 cups per day Caffeine Use Comment: 2-3 cups/day - Recreational Drug Use Recreational Drug Use: Yes Recreational Drug Type: Reports: Marijuana/Hashish Recreational Drug Use Frequency: Daily - Living Situation & Occupation Living situation: Reports: Alone Occupation: Disabled ED ROS GENERAL - Review of Systems Review Of Systems: See Below Constitutional: Reports: No Symptoms HEENT: Reports: No Symptoms Respiratory: Reports: No Symptoms Cardiovascular: Reports: No Symptoms Endocrine: Reports: No Symptoms GI/Abdominal: Reports: Abdominal Pain, Diarrhea : Reports: No Symptoms Musculoskeletal: Reports: No Symptoms Skin: Reports: No Symptoms Neurological: Reports: No Symptoms Psychiatric: Reports: No Symptoms Hematologic/Lymphatic: Reports: No Symptoms Immunologic: Reports: No Symptoms ED EXAM, GENERAL - Physical Exam Exam: See Below Exam Limited By: No Limitations General Appearance: Alert, WD/WN, Mild Distress Nose: Normal Inspection, Normal Mucosa, No Blood Throat/Mouth: Normal Inspection, Normal Lips, Normal Voice, No Airway Compromise Head: Atraumatic, Normocephalic Neck: Normal Inspection, Supple, Non-Tender Respiratory/Chest: No Respiratory Distress, Lungs Clear, Normal Breath Sounds, No Accessory Muscle Use Cardiovascular: Regular Rate, Rhythm, No Gallop, Other (2/6 JASWINDER at LSB) GI/Abdominal: Soft, Other (distended and rounded, pt states his abd is usual s ize, however Trupti RN says his abd is much bigger than in hosp yesterday when he got PRBC and plts, moderate tender throughout with inc'd tender at L flank and LLQ, no CVAT b/l however, dec'd BS x 4, occasional tinkles, some guard and rebound at L flank) Back Exam: Normal Inspection, Full Range of Motion. No: CVA Tenderness (R), CVA Tenderness (L) Extremities: Normal Inspection, Normal Range of Motion, No Pedal Edema, Other (turgor wnl, shiny smooth skin in LEs with atrophy and hyperpigmentation and minimal edema) Neurological: Alert, Oriented, CN II-XII Intact, No Motor/Sensory Deficits Psychiatric: Normal Affect, Normal Mood Skin Exam: Warm, Dry, Intact, Normal Color, No Rash Lymphatic: No Adenopathy Course - Vital Signs Last Recorded V/S: Last Vital Signs Temp 36.7 C 11/29/19 08:32 Pulse 91 11/29/19 09:28 Resp 18 11/29/19 08:32 BP 130/71 11/29/19 09:28 Pulse Ox 98 11/29/19 08:32 - Orders/Labs/Meds Orders: Active Orders 24 hr Category Date Time Status Abdomen Pelvis wo Cont [CT] Stat Exams 11/29/19 10:24 Taken CULTURE BLOOD [BC] Routine Lab 11/29/19 09:20 Received CULTURE URINE [RM] Stat Lab 11/29/19 09:43 Received HYDROmorphone [Dilaudid] Med 11/29/19 12:26 Once 1 mg IM ONETIME ONE cefTRIAXone [Rocephin] Med 11/29/19 12:25 Once 1 gm IM ONETIME ONE metroNIDAZOLE [Flagyl] Med 11/29/19 12:25 Once 500 mg PO ONETIME ONE oxyCODONE Med 11/29/19 12:26 Once 5 mg PO ONETIME ONE Labs: Laboratory Tests 11/29/19 11/29/19 11/29/19 Range/Units 09:20 09:20 09:20 WBC 3.1 L (4.5-12.0) X10-3/uL RBC 3.13 L (4.30-5.75) x10(6)uL Hgb 9.5 L (13.5-17.8) g/dL Hct 28.4 L (30.0-51.3) % MCV 90.7 (80-96) fL MCH 30.3 (27.7-33.6) pg MCHC 33.4 (32.2-35.4) g/dL RDW 13.4 (11.5-15.5) % Plt Count 26 L* (125-369) X10(3)uL MPV 9.0 (7.4-10.4) fL Add Manual Diff Yes Neutrophils % (Manual) 49 (46-82) % Lymphocytes % (Manual) 42 H (13-37) % Monocytes % (Manual) 9 (4-12) % ESR 51 H (0-15) mm/hr Sodium 138 (135-145) mmol/L Potassium 4.3 (3.5-5.3) mmol/L Chloride 107 D (100-110) mmol/L Carbon Dioxide 22 (21-32) mmol/L BUN 41 H D (7-18) mg/dL Creatinine 2.3 H* (0.70-1.30) mg/dL Est Cr Clr Drug Dosing 30.82 mL/min Estimated GFR (MDRD) 29 L (>60) BUN/Creatinine Ratio 17.8 (9-20) Glucose 159 H D (80-116) mg/dL Lactic Acid (0.4-2.0) mmol/L Calcium 7.2 L (8.6-10.2) mg/dL Total Bilirubin 0.3 (0.1-1.3) mg/dL AST 53 H (5-25) IU/L ALT 64 H D (12-36) U/L Alkaline Phosphatase 249 H (56-112) IU/L Troponin I 9.5 (4.0-60.3) pg/mL C-Reactive Protein 9.6 H* (0.5-0.9) mg/dL Total Protein 6.1 (6.0-8.0) g/dL Albumin 2.6 L (3.2-4.6) g/dL Globulin 3.5 g/dL Albumin/Globulin Ratio 0.7 Lipase 106 (73-393) U/L Urine Color (YELLOW) Urine Appearance (CLEAR) Urine pH (5.0-6.5) Ur Specific [place] (1.010-1.025) Urine Protein (NEGATIVE) mg/dL Urine Glucose (UA) (NORMAL) mg/dL Urine Ketones (NEGATIVE) mg/dL Urine Occult Blood (NEGATIVE) Urine Nitrite (NEGATIVE) Urine Bilirubin (NEGATIVE) Urine Urobilinogen (NEGATIVE) mg/dL Ur Leukocyte Esterase (NEGATIVE) Urine RBC (0-5) Urine WBC (0-5) Ur Squamous Epith Cells (NS,R,O) Urine Bacteria (NS) 11/29/19 11/29/19 Range/Units 09:20 09:43 WBC (4.5-12.0) X10-3/uL RBC (4.30-5.75) x10(6)uL Hgb (13.5-17.8) g/dL Hct (30.0-51.3) % MCV (80-96) fL MCH (27.7-33.6) pg MCHC (32.2-35.4) g/dL RDW (11.5-15.5) % Plt Count (125-369) X10(3)uL MPV (7.4-10.4) fL Add Manual Diff Neutrophils % (Manual) (46-82) % Lymphocytes % (Manual) (13-37) % Monocytes % (Manual) (4-12) % ESR (0-15) mm/hr Sodium (135-145) mmol/L Potassium (3.5-5.3) mmol/L Chloride (100-110) mmol/L Carbon Dioxide (21-32) mmol/L BUN (7-18) mg/dL Creatinine (0.70-1.30) mg/dL Est Cr Clr Drug Dosing mL/min Estimated GFR (MDRD) (>60) BUN/Creatinine Ratio (9-20) Glucose (80-116) mg/dL Lactic Acid 1.4 (0.4-2.0) mmol/L Calcium (8.6-10.2) mg/dL Total Bilirubin (0.1-1.3) mg/dL AST (5-25) IU/L ALT (12-36) U/L Alkaline Phosphatase (56-112) IU/L Troponin I (4.0-60.3) pg/mL C-Reactive Protein (0.5-0.9) mg/dL Total Protein (6.0-8.0) g/dL Albumin (3.2-4.6) g/dL Globulin g/dL Albumin/Globulin Ratio Lipase (73-393) U/L Urine Color Yellow (YELLOW) Urine Appearance Clear (CLEAR) Urine pH 5.0 (5.0-6.5) Ur Specific [place] 1.010 (1.010-1.025) Urine Protein 30 H (NEGATIVE) mg/dL Urine Glucose (UA) Normal (NORMAL) mg/dL Urine Ketones Negative (NEGATIVE) mg/dL Urine Occult Blood Moderate H (NEGATIVE) Urine Nitrite Negative (NEGATIVE) Urine Bilirubin Negative (NEGATIVE) Urine Urobilinogen Normal (NEGATIVE) mg/dL Ur Leukocyte Esterase Negative (NEGATIVE) Urine RBC 5-10 H (0-5) Urine WBC 0-5 (0-5) Ur Squamous Epith Cells Few H (NS,R,O) Urine Bacteria Moderate H (NS) Meds: Medications Discontinued Medications Generic Name Dose Route Start Last Admin Trade Name Freq PRN Reason Stop Dose Admin Hydromorphone HCl 1 mg 11/29/19 09:29 11/29/19 09:41 Dilaudid IM 11/29/19 09:30 1 mg ONETIME ONE Administration Sodium Chloride 1,000 mls @ 999 mls/hr 11/29/19 09:09 11/29/19 09:27 Normal Saline IV 11/29/19 10:09 Not Given .BOLUS ONE - Re-Assessments/Exams Free Text/Narrative Re-Assessment/Exam: 11/29/19 12:39 hgb and plts improved in 1d after transfusion labs at baseline except for CRP which is over 9 when baseline appears closer to 3 CT abd/pelvis is nondiagnostic with no acute process nevertheless pt's exam (d BS, significant left sided tenderness, prior h/o diverticulitis) in the context of immunosuppressed state and elevated CRP are all suggestive of acute diverticulitis will empirically treat for presumed acute diverticulitis with cipro and metronidzaole x 1 wk, will give ceftriaxone 1 gm IM now on Saturday until he can meat pickler his Rx's at [facility] pt send home with take home pack of 4 tabs of hc/apap 5/325 to last til tomorrow and also given Rx for oxycodone 5 mg 1 tab q6h prn to begin tomorrow pt agrees to return to ED if feeling worse 11/29/19 12:42 stil with L sided abd tender at exam, did feel better after Dilaudid Departure - Departure Time of Disposition: 12:27 Disposition: Home, Self-Care 01 Condition: Fair Clinical Impression: Left sided abdominal pain, Elevated C-reactive protein (CRP), Acute diverticulitis - Discharge Information *PRESCRIPTION DRUG MONITORING PROGRAM REVIEWED*: Yes *COPY OF PRESCRIPTION DRUG MONITORING REPORT IN PATIENT JUNI: Yes Prescriptions: Ciprofloxacin [Ciprofloxacin HCl] 500 mg PO BID #14 tab metroNIDAZOLE [Metronidazole] 500 mg PO TID #21 tablet oxyCODONE 5 mg PO Q6H #10 tab Instructions: Diverticulitis Referrals: Janice Casper PA [Primary Care Provider] - Forms: ED Department Discharge Additional Instructions: Although the CT does not show infection, your C-reactive protein is elevated and there likely is infection in the colon from diverticulitis. For infection, take ciprofloxacin 500 mg 1 tab 2 times a day for 7 days. For infection, take metronidazole 500 mg 1 tab 3 times a day for 7 days. No alcohol. For pain, take hydrocodone with acetaminophen 5/325 mg 2 tabs every 6 hours for today. Tomorrow, for pain, take oxycodone 5 mg 1 tab every 6 hours. Soak in a warm tub or shower for 10 minutes every 2 hours as needed. See your doctor in 2-3 days for further evaluation and recommendations. Return to ED if you are feeling worse. Sepsis Event Note (ED) - Evaluation Sepsis Screening Result: No Definite Risk - Focused Exam Vital Signs: Vital Signs Temp Pulse Resp BP Pulse Ox 11/29/19 09:28 91 130/71 11/29/19 08:56 142/76 H 11/29/19 08:32 36.7 C 96 18 156/72 H 98 - My Orders Last 24 Hours: My Active Orders 11/29/19 09:20 CULTURE BLOOD [BC] Routine 11/29/19 09:43 CULTURE URINE [RM] Stat 11/29/19 10:24 Abdomen Pelvis wo Cont [CT] Stat 11/29/19 12:25 cefTRIAXone [Rocephin] 1 gm IM ONETIME ONE metroNIDAZOLE [Flagyl] 500 mg PO ONETIME ONE 11/29/19 12:26 HYDROmorphone [Dilaudid] 1 mg IM ONETIME ONE oxyCODONE 5 mg PO ONETIME ONE - Assessment/Plan Last 24 Hours: My Active Orders 11/29/19 09:20 CULTURE BLOOD [BC] Routine 11/29/19 09:43 CULTURE URINE [RM] Stat 11/29/19 10:24 Abdomen Pelvis wo Cont [CT] Stat 11/29/19 12:25 cefTRIAXone [Rocephin] 1 gm IM ONETIME ONE metroNIDAZOLE [Flagyl] 500 mg PO ONETIME ONE 11/29/19 12:26 HYDROmorphone [Dilaudid] 1 mg IM ONETIME ONE oxyCODONE 5 mg PO ONETIME ONE
[2019-11-29] MEDS: Sodium Chloride 0.9% 1,000 ML IV ONE (09:27)
[2019-11-29 09:28] VITALS: BP 130/71; PULSE 91
[2019-11-29] MEDS: HYDROmorphone 2 MG/ML SDV IM ONE ×2 (09:41→12:35)
[2019-11-29] MEDS: oxyCODONE 5 MG Tab PO ONE (12:30)
[2019-11-29] MEDS: cefTRIAXone 1 GM Vial IM ONE (12:34)
[2019-11-29] MEDS: metroNIDAZOLE 500 MG Tab PO ONE (13:10)
== END 2019-11-29 13:25 | disposition home or self-care (01) ==
LOC: FB.ED 08:18
DX: K57.30 Diverticulosis of large intestine without perforation or abscess without bleeding (principal); R79.82 Elevated C-reactive protein (CRP); I25.2 Old myocardial infarction; I25.10 Atherosclerotic heart disease of native coronary artery without angina pectoris; E78.00 Pure hypercholesterolemia, unspecified; F41.0 Panic disorder [episodic paroxysmal anxiety]; F32.9 Major depressive disorder, single episode, unspecified; E11.9 Type 2 diabetes mellitus without complications; Z94.0 Kidney transplant status; Z79.4 Long term (current) use of insulin; Z79.82 Long term (current) use of aspirin; Z79.899 Other long term (current) drug therapy
CPT/HCPCS: 36415; 74176; 80053; 81001; 83605; 83690; 84484; 85025; 85651; 86140; 87040; 87086; 96372; 99284; A9270; J0696; J1170

== ENCOUNTER 2019-12-07 10:22 | Observation (INO) | payer MEDICARE, MEDICAID ==
--- NOTE | 2019-12-07 11:00 | EDM.PDOC ---
ED HPI GENERAL MEDICAL PROBLEM - General Chief Complaint: ENT Problem Stated Complaint: BLOODY NOSE Time Seen by Provider: 12/07/19 10:56 Source of Information: Reports: Patient History Limitations: Reports: No Limitations - History of Present Illness INITIAL COMMENTS - FREE TEXT/NARRATIVE: Presents with bilateral epistaxis since this 0630 this morning. History of Myelodysplastic Syndrome, platelets=6 on 12/04/19 CBC. 3 units of platelets ordered, staffing mgr attempted to contact the patient for transfusion but were unsuccessful. Denies other complaints. Onset: Today Duration: Hour(s): (4) Severity: Mild - Related Data Allergies Allergy/AdvReac Type Severity Reaction Status Date / Time No Known Allergies Allergy Verified 11/09/19 12:58 Home Meds: Home Meds Cholecalciferol (Vitamin D3) [Vitamin D3] 1,000 unit PO DAILY 06/07/15 [History] calcitrioL [Rocaltrol] 0.5 mcg PO DAILY 08/22/15 [History] Magnesium Oxide [Magnesium] 500 mg PO TID 07/23/17 [History] Sodium Bicarbonate 650 mg PO BID 07/23/17 [History] predniSONE [Prednisone] 10 mg PO DAILY 09/17/17 [History] Tacrolimus [Prograf] 0.5 mg PO BEDTIME 02/24/18 [History] Fluconazole [Diflucan] 200 mg PO DAILY 08/07/18 [History] Insulin Degludec [Tresiba Flextouch U-100] 15 units SQ DAILY 08/07/18 [History] carvediloL [Carvedilol] 6.25 mg PO BID 10/16/18 [History] Tacrolimus 1 mg PO DAILY 02/08/19 [History] Aspirin [Halfprin] 81 mg PO DAILY 02/20/19 [History] Pantoprazole Sodium [Protonix] 40 mg PO BID 02/20/19 [History] Gabapentin [Neurontin] 600 mg PO BID 04/02/19 [History] Isosorbide Mononitrate [Imdur] 30 mg PO DAILY 04/02/19 [History] glipiZIDE [Glucotrol] 5 mg PO DAILY 04/02/19 [History] tiZANidine [Zanaflex] 2 tab PO BEDTIME 04/06/19 [History] traMADol [Ultram] 50 mg PO Q6H PRN #10 tab 08/21/19 [Rx] Nitrofurantoin Monohyd/M-Cryst [Macrobid 100 mg Capsule] 100 mg PO BID #20 capsule 11/01/19 [Rx] Ciprofloxacin [Ciprofloxacin HCl] 500 mg PO BID #14 tab 11/29/19 [Rx] metroNIDAZOLE [Metronidazole] 500 mg PO TID #21 tablet 11/29/19 [Rx] oxyCODONE 5 mg PO Q6H #10 tab 11/29/19 [Rx] Past Medical History HEENT History: Reports: Impaired Vision Other HEENT History: Pt wears glasses Cardiovascular History: Reports: CAD, High Cholesterol, [place], Stents, Other (See Below) Other Cardiovascular History: viral menigitis 2015 (also "had [place] 09/2017 went to [place] they put in a stent" this recorded on 09/14/17) Respiratory History: Reports: Other (See Below) Gastrointestinal History: Reports: Cholelithiasis, Colon Polyp, Diverticulosis, Hemorrhoids Genitourinary History: Reports: Renal Disease, UTI, Recurrent, Other (See Below) Other Genitourinary History: kidney transplant (2001) pts fistula was removed early may 2017 from left arm Musculoskeletal History: Reports: Back Pain, Chronic Other Musculoskeletal History: has lump on neck vein and will need it removed Neurological History: Reports: Other (See Below) Other Neuro History: Cryptococcal meningitis Psychiatric History: Reports: Addiction, Anxiety, Depression, Panic Attack, Other (See Below) Other Psychiatric History: gets mildly depressed. POST ALCOHOLIC 1998 Endocrine/Metabolic History: Reports: Diabetes, Type II, Hypoparathyroidism Hematologic History: Reports: Anemia, Blood Transfusion(s) Other Hematologic History: myelodysplastic syndrome Immunologic History: Reports: Immunosuppression, Solid Organ Transplant Other Immunologic History: kidney transplant 2001 Oncologic (Cancer) History: Reports: None Dermatologic History: Reports: None - Infectious Disease History Infectious Disease History: Reports: MRSA Other Infectious Disease History: MRSA-urine - Past Surgical History Head Surgeries/Procedures: Reports: None HEENT Surgical History: Reports: None Cardiovascular Surgical History: Reports: Coronary Artery Stent GI Surgical History: Reports: Appendectomy, Cholecystectomy, Colonoscopy Male Surgical History: Reports: Other (See Below) Other Male Surgeries/Procedures: kidney transplant in 2001 Endocrine Surgical History: Reports: Other (See Below) Other Endocrine Surgeries/Procedures: had thyroid removed Musculoskeletal Surgical History: Reports: Hip Replacement Other Musculoskeletal Surgeries/Procedures:: both hips-replaced Social & Family History - Family History Family Medical History: Noncontributory Cardiac: Reports: CAD, Other (See Below) Other Cardiac Family History: Brother had bypass GI: Reports: None OBGYN: Reports: None, Musculoskeletal: Reports: None Neurological: Reports: None Psychiatric: Reports: None Endocrine/Metabolic: Reports: Diabetes, type II Immunologic: Reports: None - Caffeine Use Caffeine Use: Reports: Coffee Other Caffeine Use: 2-3 cups per day Caffeine Use Comment: 2-3 cups/day - Living Situation & Occupation Living situation: Reports: Alone Occupation: Disabled ED ROS ENT - Review of Systems Review Of Systems: Comprehensive ROS is negative, except as noted in HPI. ED EXAM, ENT - Physical Exam Exam: See Below Exam Limited By: No Limitations General Appearance: Alert, WD/WN, No Apparent Distress Ears: Normal External Exam Nose: Other (bilateral epistaxis present, mild oozing.) Mouth/Throat: Normal Inspection Head: Atraumatic, Normocephalic Neck: Full Range of Motion Respiratory/Chest: No Respiratory Distress, Lungs Clear, Normal Breath Sounds Cardiovascular: Regular Rate, Rhythm GI/Abdominal: Non-Tender Extremities: Normal Range of Motion Neurological: Alert, Normal Cognition Psychiatric: Normal Affect, Normal Mood Skin: Warm, Dry, Intact Course - Vital Signs Last Recorded V/S: Last Vital Signs Temp 36.6 C 12/07/19 11:31 Pulse 72 12/07/19 11:31 Resp 16 12/07/19 11:31 BP 132/73 12/07/19 11:31 Pulse Ox 98 12/07/19 11:31 - Orders/Labs/Meds Orders: Active Orders 24 hr Category Date Time Status Admission Status [Patient Status] [ADT] Routine ADT 12/07/19 11:35 Ordered Labs: Laboratory Tests 12/07/19 12/07/19 12/07/19 Range/Units 11:05 11:05 11:05 WBC 3.5 L (4.5-12.0) X10-3/uL RBC 2.80 L (4.30-5.75) x10(6)uL Hgb 8.7 L (13.5-17.8) g/dL Hct 25.9 L (30.0-51.3) % MCV 92.3 (80-96) fL MCH 31.2 (27.7-33.6) pg MCHC 33.8 (32.2-35.4) g/dL RDW 13.5 (11.5-15.5) % Plt Count 6 L* (125-369) X10(3)uL MPV 8.1 (7.4-10.4) fL Neut % (Auto) 13.0 L (46-82) % Lymph % (Auto) 34.5 (13-37) % [place] % (Auto) 51.4 H (4-12) % Eos % (Auto) 0 L (1.0-5.0) % Baso % (Auto) 1 (0-2) % Neut # (Auto) 0.5 L (1.6-8.3) # Lymph # (Auto) 1.2 (0.6-5.0) # [place] # (Auto) 1.8 H (0.0-1.3) # Eos # (Auto) 0.0 (0.0-0.8) # Baso # (Auto) 0.0 (0.0-0.2) # PT 10.9 (9.0-11.1) sec INR 1.01 (1.00-1.24) Sodium 138 (135-145) mmol/L Potassium 4.6 (3.5-5.3) mmol/L Chloride 107 (100-110) mmol/L Carbon Dioxide 21 (21-32) mmol/L BUN 46 H (7-18) mg/dL Creatinine 1.9 H (0.70-1.30) mg/dL Est Cr Clr Drug Dosing TNP Estimated GFR (MDRD) 36 L (>60) BUN/Creatinine Ratio 24.2 H (9-20) Glucose 135 H (80-116) mg/dL Calcium 6.6 L (8.6-10.2) mg/dL Total Bilirubin 0.3 (0.1-1.3) mg/dL AST 49 H (5-25) IU/L ALT 55 H D (12-36) U/L Alkaline Phosphatase 211 H (56-112) IU/L Total Protein 6.2 (6.0-8.0) g/dL Albumin 2.7 L (3.2-4.6) g/dL Globulin 3.5 g/dL Albumin/Globulin Ratio 0.8 - Re-Assessments/Exams Free Text/Narrative Re-Assessment/Exam: 12/07/19 11:40 Dr. Mcgee agrees to observation admit to transfuse 3 units of platelets. Departure - Departure Time of Disposition: 11:39 Disposition: Refer to Observation Condition: Fair Clinical Impression: Thrombocytopenia, Myelodysplasia (myelodysplastic syndrome), Epistaxis - Discharge Information *PRESCRIPTION DRUG MONITORING PROGRAM REVIEWED*: No *COPY OF PRESCRIPTION DRUG MONITORING REPORT IN PATIENT JUNI: Not Applicable Referrals: Janice Casper PA [Primary Care Provider] - Forms: ED Department Discharge Sepsis Event Note (ED) - Focused Exam Vital Signs: Vital Signs Temp Pulse Resp BP Pulse Ox 12/07/19 11:31 36.6 C 72 16 132/73 98 - My Orders Last 24 Hours: My Active Orders 12/07/19 11:35 Admission Status [Patient Status] [ADT] Routine - Assessment/Plan Last 24 Hours: My Active Orders 12/07/19 11:35 Admission Status [Patient Status] [ADT] Routine
[2019-12-07] MEDS ORDERED: Sodium Chloride 0.9% 250 ML IV SCH (12:15)
[2019-12-07] MEDS ORDERED: traMADol 50 MG Tab PO PRN (14:02)
--- NOTE | 2019-12-07 14:02 | PCM.HP.2 ---
H&P History of Present Illness - General Date of Service: 12/07/19 Admit Problem/Dx: Admission Diagnosis/Problem Admission Diagnosis/Problem Thrombocytopenia Source of Information: Patient History Limitations: Reports: No Limitations - History of Present Illness Initial Comments - Free Text/Narative: This is a 59-year-old male patient of myeloproliferative disorder. He had lab work showed his platelets were 6. Hospital staff try to contact over the weekend to get him in for platelets. He changes number. He came in today to the ER with nosebleeds bilateral. They're able to stop it. Was felt because he has nosebleeds and his platelets are low he should be admitted for observation and tell with the platelets going. He says it's not currently bleeding denies chest pain, shortness of breath, weakness. - Related Data Allergies/Adverse Reactions: Allergies Allergy/AdvReac Type Severity Reaction Status Date / Time No Known Allergies Allergy Verified 11/09/19 12:58 Home Medications: Home Meds Cholecalciferol (Vitamin D3) [Vitamin D3] 1,000 unit PO DAILY 06/07/15 [History] calcitrioL [Rocaltrol] 0.5 mcg PO DAILY 08/22/15 [History] Magnesium Oxide [Magnesium] 500 mg PO TID 07/23/17 [History] Sodium Bicarbonate 650 mg PO BID 07/23/17 [History] predniSONE [Prednisone] 10 mg PO DAILY 09/17/17 [History] Tacrolimus [Prograf] 0.5 mg PO BEDTIME 02/24/18 [History] Fluconazole [Diflucan] 200 mg PO DAILY 08/07/18 [History] Insulin Degludec [Tresiba Flextouch U-100] 15 units SQ DAILY 08/07/18 [History] carvediloL [Carvedilol] 6.25 mg PO BID 10/16/18 [History] Tacrolimus 1 mg PO DAILY 02/08/19 [History] Aspirin [Halfprin] 81 mg PO DAILY 02/20/19 [History] Pantoprazole Sodium [Protonix] 40 mg PO BID 02/20/19 [History] Gabapentin [Neurontin] 600 mg PO BID 04/02/19 [History] Isosorbide Mononitrate [Imdur] 30 mg PO DAILY 04/02/19 [History] glipiZIDE [Glucotrol] 5 mg PO DAILY 04/02/19 [History] tiZANidine [Zanaflex] 2 tab PO BEDTIME 04/06/19 [History] traMADol [Ultram] 50 mg PO Q6H PRN #10 tab 08/21/19 [Rx] Nitrofurantoin Monohyd/M-Cryst [Macrobid 100 mg Capsule] 100 mg PO BID #20 capsule 11/01/19 [Rx] Ciprofloxacin [Ciprofloxacin HCl] 500 mg PO BID #14 tab 11/29/19 [Rx] metroNIDAZOLE [Metronidazole] 500 mg PO TID #21 tablet 11/29/19 [Rx] oxyCODONE 5 mg PO Q6H #10 tab 11/29/19 [Rx] Past Medical History HEENT History: Reports: Impaired Vision Other HEENT History: Pt wears glasses Cardiovascular History: Reports: CAD, High Cholesterol, [place], Stents, Other (See Below) Other Cardiovascular History: viral menigitis 2015 (also "had [place] 09/2017 went to [place] they put in a stent" this recorded on 09/14/17) Respiratory History: Reports: Other (See Below) Gastrointestinal History: Reports: Cholelithiasis, Colon Polyp, Diverticulosis, Hemorrhoids Genitourinary History: Reports: Renal Disease, UTI, Recurrent, Other (See Below) Other Genitourinary History: kidney transplant (2001) pts fistula was removed early may 2017 from left arm Musculoskeletal History: Reports: Back Pain, Chronic Other Musculoskeletal History: has lump on neck vein and will need it removed Neurological History: Reports: Other (See Below) Other Neuro History: Cryptococcal meningitis Psychiatric History: Reports: Addiction, Anxiety, Depression, Panic Attack, Other (See Below) Other Psychiatric History: gets mildly depressed. POST ALCOHOLIC 1998 Endocrine/Metabolic History: Reports: Diabetes, Type II, Hypoparathyroidism Hematologic History: Reports: Anemia, Blood Transfusion(s) Other Hematologic History: myelodysplastic syndrome Immunologic History: Reports: Immunosuppression, Solid Organ Transplant Other Immunologic History: kidney transplant 2001 Oncologic (Cancer) History: Reports: None Dermatologic History: Reports: None - Infectious Disease History Infectious Disease History: Reports: MRSA Other Infectious Disease History: MRSA-urine - Past Surgical History Head Surgeries/Procedures: Reports: None HEENT Surgical History: Reports: None Cardiovascular Surgical History: Reports: Coronary Artery Stent GI Surgical History: Reports: Appendectomy, Cholecystectomy, Colonoscopy Male Surgical History: Reports: Other (See Below) Other Male Surgeries/Procedures: kidney transplant in 2001 Endocrine Surgical History: Reports: Other (See Below) Other Endocrine Surgeries/Procedures: had thyroid removed Musculoskeletal Surgical History: Reports: Hip Replacement Other Musculoskeletal Surgeries/Procedures:: both hips-replaced Social & Family History - Family History Family Medical History: Noncontributory Cardiac: Reports: CAD, Other (See Below) Other Cardiac Family History: Brother had bypass GI: Reports: None OBGYN: Reports: None, Musculoskeletal: Reports: None Neurological: Reports: None Psychiatric: Reports: None Endocrine/Metabolic: Reports: Diabetes, type II Immunologic: Reports: None - Tobacco Use Smoking Status *Q: Current Status Unknown - Caffeine Use Caffeine Use: Reports: Coffee Other Caffeine Use: 2-3 cups per day Caffeine Use Comment: 2-3 cups/day - Living Situation & Occupation Living situation: Reports: Alone Occupation: Disabled H&P Review of Systems - Review of Systems: Review Of Systems: See Below General: Reports: No Symptoms HEENT: Reports: Other (See HPI) Pulmonary: Reports: No Symptoms Cardiovascular: Reports: No Symptoms Gastrointestinal: Reports: No Symptoms Genitourinary: Reports: No Symptoms Musculoskeletal: Reports: No Symptoms Skin: Reports: No Symptoms Neurological: Reports: No Symptoms Exam - Exam Exam: See Below - Vital Signs Vital Signs: Last Vital Signs Temp 97.8 F 12/07/19 11:31 Pulse 98 12/07/19 13:50 Resp 14 12/07/19 13:50 BP 130/81 12/07/19 13:50 Pulse Ox 98 12/07/19 13:50 - Exam General: Alert, Oriented, Obtunded HEENT: Pupils Reactive, TMs Clear, Other (Areas of bleeding of stopping the right nares. Left nares not able to visualize any bleeding.) Lungs: Clear to Auscultation, Normal Respiratory Effort Cardiovascular: Regular Rate, Regular Rhythm GI/Abdominal Exam: Normal Bowel Sounds, Soft, Non-Tender Extremities: Normal Inspection, No Pedal Edema - Patient Data Lab Results Last 24 hrs: Laboratory Results - last 24 hr 12/07/19 12/07/19 12/07/19 Range/Units 11:05 11:05 11:05 WBC 3.5 L (4.5-12.0) X10-3/uL RBC 2.80 L (4.30-5.75) x10(6)uL Hgb 8.7 L (13.5-17.8) g/dL Hct 25.9 L (30.0-51.3) % MCV 92.3 (80-96) fL MCH 31.2 (27.7-33.6) pg MCHC 33.8 (32.2-35.4) g/dL RDW 13.5 (11.5-15.5) % Plt Count 6 L* (125-369) X10(3)uL MPV 8.1 (7.4-10.4) fL Neut % (Auto) 52 (46-82) % Lymph % (Auto) 27 (13-37) % [place] % (Auto) 17 H (4-12) % Eos % (Auto) 0 L (1.0-5.0) % Baso % (Auto) 0 (0-2) % Neut # (Auto) (1.6-8.3) # Lymph # (Auto) (0.6-5.0) # [place] # (Auto) (0.0-1.3) # Eos # (Auto) (0.0-0.8) # Baso # (Auto) (0.0-0.2) # PT 10.9 (9.0-11.1) sec INR 1.01 (1.00-1.24) Sodium 138 (135-145) mmol/L Potassium 4.6 (3.5-5.3) mmol/L Chloride 107 (100-110) mmol/L Carbon Dioxide 21 (21-32) mmol/L BUN 46 H (7-18) mg/dL Creatinine 1.9 H (0.70-1.30) mg/dL Est Cr Clr Drug Dosing TNP Estimated GFR (MDRD) 36 L (>60) BUN/Creatinine Ratio 24.2 H (9-20) Glucose 135 H (80-116) mg/dL Calcium 6.6 L (8.6-10.2) mg/dL Total Bilirubin 0.3 (0.1-1.3) mg/dL AST 49 H (5-25) IU/L ALT 55 H D (12-36) U/L Alkaline Phosphatase 211 H (56-112) IU/L Total Protein 6.2 (6.0-8.0) g/dL Albumin 2.7 L (3.2-4.6) g/dL Globulin 3.5 g/dL Albumin/Globulin Ratio 0.8 Result Diagrams: 12/07/19 11:05 12/07/19 11:05 Sepsis Event Note - Evaluation Sepsis Screening Result: No Definite Risk - Focused Exam Vital Signs: Vital Signs Temp Pulse Resp BP Pulse Ox 12/07/19 13:50 98 14 130/81 98 12/07/19 11:31 97.8 F 72 16 132/73 98 Date Exam was Performed: 12/07/19 Time Exam was Performed: 13:58 - Problem List (1) Elevated LFTs SNOMED Code(s): 627246360, 754580258 ICD Code: R79.89 - OTHER SPECIFIED ABNORMAL FINDINGS OF BLOOD CHEMISTRY Status: Acute Current Visit: Yes (2) Epistaxis SNOMED Code(s): 436884654 ICD Code: R04.0 - EPISTAXIS Status: Acute Current Visit: Yes (3) MDS (myelodysplastic syndrome) SNOMED Code(s): 403384867 ICD Code: D46.9 - MYELODYSPLASTIC SYNDROME, UNSPECIFIED Status: Acute Current Visit: Yes (4) Thrombocytopenia SNOMED Code(s): 325554536 ICD Code: D69.6 - THROMBOCYTOPENIA, UNSPECIFIED Status: Acute Current Visit: Yes (5) Anemia SNOMED Code(s): 803526896 ICD Code: D64.9 - ANEMIA, UNSPECIFIED Status: Acute Current Visit: No Qualifiers: Anemia type: due to chronic kidney disease Problem List Initiated/Reviewed/Updated: Yes Orders Last 24hrs: Active Orders 24 hr Category Date Time Status Admission Status [Patient Status] [ADT] Routine ADT 12/07/19 11:35 Active Ambulate [RC] PER UNIT ROUTINE Care 12/07/19 11:59 Active Height and Weight [RC] DAILY Care 12/07/19 11:59 Active Intake and Output [RC] QSHIFT Care 12/07/19 12:00 Active Notify Provider Vital Signs [RC] ASDIRECTED Care 12/07/19 12:01 Active Pulse Oximetry [RC] PRN Care 12/07/19 11:59 Active Vital Signs [RC] QSHIFT Care 12/07/19 11:59 Active Heart Healthy Diet [DIET] Diet 12/07/19 Dinner Active PLATELETS [facility] [BBK] Routine Lab 12/07/19 11:05 Received Sodium Chloride 0.9% [Normal Saline] 250 ml Med 12/07/19 12:15 Active IV ASDIRECTED Transfuse Platelets [COMM] Stat Oth 12/07/19 12:02 Ordered Resuscitation Status Routine Resus Stat 12/07/19 11:59 Ordered Medication Orders Sodium Chloride (Normal Saline) 250 mls @ 100 mls/hr IV ASDIRECTED LARON Assessment/Plan Comment:: 1. Admit for observation. 2. Up ad an. 3. VTE prophylaxis with SCD no anticoagulants due to condition. 4. regular diet 5. They've ordered platelets and when they're here he'll get the platelets and then he can go home and be discharged. They come from [place]. They thought it would take at least 6 hours. 6. Patient needs to be here because of his low platelets and his high propensity to bleed in his nose - Mortality Measure Prognosis:: Good
[2019-12-07 17:20] VITALS: BP 134/90; PULSE 64
[2019-12-07] MEDS ORDERED: Carvedilol 6.25 MG Tab PO SCH (21:00)
[2019-12-07] MEDS ORDERED: Gabapentin 300 MG Cap PO SCH (21:00)
[2019-12-07] MEDS ORDERED: Tacrolimus 0.5 MG Cap PO SCH (21:00)
[2019-12-07] MEDS ORDERED: Non-Formulary Medication 1 Each (Magnesium Oxide [Magnesium] 500 MG) PO SCH (21:00)
[2019-12-07] MEDS ORDERED: Pantoprazole 40 MG Tab.CR PO SCH (21:00)
[2019-12-07] MEDS ORDERED: Sodium Bicarbonate 650 MG Tab PO SCH (21:00)
[2019-12-07] MEDS ORDERED: TIZANIDINE PO SCH (21:00)
--- NOTE | 2019-12-08 08:38 | PCM.SN.2 ---
- Free Text/Narrative Note: Patient received his platelets. He had no recurrence of his nosebleed and was discharged to home. He will follow-up in 2 days for blood work per oncology.
[2019-12-08] MEDS ORDERED: Isosorbide Mononitrate 30 MG Tab.ER PO SCH (09:00)
[2019-12-08] MEDS ORDERED: predniSONE 5 MG Tab PO SCH (09:00)
[2019-12-08] MEDS ORDERED: Tacrolimus 0.5 MG Cap PO SCH (09:00)
[2019-12-08] MEDS ORDERED: Calcitriol 0.25 MCG Cap PO SCH (09:00)
[2019-12-08] MEDS ORDERED: Cholecalciferol (Vitamin D3) 25 MCG Tab PO SCH (09:00)
[2019-12-08] MEDS ORDERED: INSULIN DEGLUDEC 15 UNIT SQ SCH (09:00)
[2019-12-08] MEDS ORDERED: FLUCONAZOLE 200 MG PO SCH (09:00)
[2019-12-08] MEDS ORDERED: glipiZIDE 5 MG Tab PO SCH (09:00)
== END 2019-12-07 18:09 | disposition home or self-care (01) ==
LOC: FB.ED 10:22 → FB.MS 11:35
PROVIDERS: ADMIT Family Medicine; ATTEND Family Medicine
DX: R04.0 Epistaxis (principal); D69.6 Thrombocytopenia, unspecified; D46.9 Myelodysplastic syndrome, unspecified; E78.00 Pure hypercholesterolemia, unspecified; F41.9 Anxiety disorder, unspecified; F32.9 Major depressive disorder, single episode, unspecified; E20.9 Hypoparathyroidism, unspecified; R79.89 Other specified abnormal findings of blood chemistry; E11.22 Type 2 diabetes mellitus with diabetic chronic kidney disease; N18.9 Chronic kidney disease, unspecified; D63.1 Anemia in chronic kidney disease; Z79.82 Long term (current) use of aspirin; Z79.4 Long term (current) use of insulin; Z79.899 Other long term (current) drug therapy
CPT/HCPCS: 36415; 36430; 80053; 85025; 85610; 99284; G0378; P9034

== ENCOUNTER 2019-12-23 20:18 | Emergency (ER) | payer MEDICARE, MEDICAID ==
[2019-12-23 20:33] VITALS: BP 124/74; PULSE 76
--- NOTE | 2019-12-23 21:29 | EDM.PDOC ---
ED HPI GENERAL MEDICAL PROBLEM - General Chief Complaint: General Stated Complaint: LOW PLATELETS Time Seen by Provider: 12/23/19 20:40 Source of Information: Reports: Patient History Limitations: Reports: No Limitations - History of Present Illness INITIAL COMMENTS - FREE TEXT/NARRATIVE: Patient presented to the ED because of lab test. He has a h/o MDS and just had a platelet transfusion a week ago. There is no active bleeding jose alberto on. - Related Data Allergies Allergy/AdvReac Type Severity Reaction Status Date / Time No Known Allergies Allergy Verified 12/21/19 17:53 Home Meds: Home Meds Cholecalciferol (Vitamin D3) [Vitamin D3] 1,000 unit PO DAILY 06/07/15 [History] calcitrioL [Rocaltrol] 0.5 mcg PO DAILY 08/22/15 [History] Magnesium Oxide [Magnesium] 500 mg PO TID 07/23/17 [History] Sodium Bicarbonate 650 mg PO BID 07/23/17 [History] predniSONE [Prednisone] 10 mg PO DAILY 09/17/17 [History] Tacrolimus [Prograf] 0.5 mg PO BEDTIME 02/24/18 [History] Fluconazole [Diflucan] 200 mg PO DAILY 08/07/18 [History] Insulin Degludec [Tresiba Flextouch U-100] 15 units SQ DAILY 08/07/18 [History] carvediloL [Carvedilol] 6.25 mg PO BID 10/16/18 [History] Tacrolimus 1 mg PO DAILY 02/08/19 [History] Aspirin [Halfprin] 81 mg PO DAILY 02/20/19 [History] Pantoprazole Sodium [Protonix] 40 mg PO BID 02/20/19 [History] Gabapentin [Neurontin] 600 mg PO BID 04/02/19 [History] Isosorbide Mononitrate [Imdur] 30 mg PO DAILY 04/02/19 [History] glipiZIDE [Glucotrol] 5 mg PO DAILY 04/02/19 [History] tiZANidine [Zanaflex] 2 tab PO BEDTIME 04/06/19 [History] traMADol [Ultram] 50 mg PO Q6H PRN #10 tab 08/21/19 [Rx] Nitrofurantoin Monohyd/M-Cryst [Macrobid 100 mg Capsule] 100 mg PO BID #20 capsule 11/01/19 [Rx] Ciprofloxacin [Ciprofloxacin HCl] 500 mg PO BID #14 tab 11/29/19 [Rx] metroNIDAZOLE [Metronidazole] 500 mg PO TID #21 tablet 11/29/19 [Rx] oxyCODONE 5 mg PO Q6H #10 tab 11/29/19 [Rx] Past Medical History HEENT History: Reports: Impaired Vision Other HEENT History: Pt wears glasses Cardiovascular History: Reports: CAD, High Cholesterol, [place], Stents, Other (See Below) Other Cardiovascular History: viral menigitis 2015 (also "had AR 09/2017 went to [place] they put in a stent" this recorded on 09/14/17) Respiratory History: Reports: Other (See Below) Gastrointestinal History: Reports: Cholelithiasis, Colon Polyp, Diverticulosis, Hemorrhoids Genitourinary History: Reports: Renal Disease, UTI, Recurrent, Other (See Below) Other Genitourinary History: kidney transplant (2001) pts fistula was removed early may 2017 from left arm Musculoskeletal History: Reports: Back Pain, Chronic Other Musculoskeletal History: has lump on neck vein and will need it removed Neurological History: Reports: Other (See Below) Other Neuro History: Cryptococcal meningitis Psychiatric History: Reports: Addiction, Anxiety, Depression, Panic Attack, Other (See Below) Other Psychiatric History: gets mildly depressed. POST ALCOHOLIC 1998 Endocrine/Metabolic History: Reports: Diabetes, Type II, Hypoparathyroidism Hematologic History: Reports: Anemia, Blood Transfusion(s) Other Hematologic History: myelodysplastic syndrome Immunologic History: Reports: Immunosuppression, Solid Organ Transplant Other Immunologic History: kidney transplant 2001 Oncologic (Cancer) History: Reports: None Dermatologic History: Reports: None - Infectious Disease History Infectious Disease History: Reports: MRSA Other Infectious Disease History: MRSA-urine - Past Surgical History Head Surgeries/Procedures: Reports: None HEENT Surgical History: Reports: None Cardiovascular Surgical History: Reports: Coronary Artery Stent GI Surgical History: Reports: Appendectomy, Cholecystectomy, Colonoscopy Male Surgical History: Reports: Other (See Below) Other Male Surgeries/Procedures: kidney transplant in 2001 Endocrine Surgical History: Reports: Other (See Below) Other Endocrine Surgeries/Procedures: had thyroid removed Musculoskeletal Surgical History: Reports: Hip Replacement Other Musculoskeletal Surgeries/Procedures:: both hips-replaced Social & Family History - Family History Family Medical History: Noncontributory Cardiac: Reports: CAD, Other (See Below) Other Cardiac Family History: Brother had bypass GI: Reports: None OBGYN: Reports: None, Musculoskeletal: Reports: None Neurological: Reports: None Psychiatric: Reports: None Endocrine/Metabolic: Reports: Diabetes, type II Immunologic: Reports: None - Caffeine Use Caffeine Use: Reports: Coffee Other Caffeine Use: 2-3 cups per day Caffeine Use Comment: 2-3 cups/day - Living Situation & Occupation Living situation: Reports: Alone Occupation: Disabled ED ROS GENERAL - Review of Systems Review Of Systems: See Below Constitutional: Reports: No Symptoms HEENT: Reports: No Symptoms Respiratory: Reports: No Symptoms Cardiovascular: Reports: No Symptoms Endocrine: Reports: No Symptoms GI/Abdominal: Reports: No Symptoms : Reports: No Symptoms Musculoskeletal: Reports: No Symptoms Skin: Reports: No Symptoms Neurological: Reports: No Symptoms Psychiatric: Reports: No Symptoms Hematologic/Lymphatic: Reports: No Symptoms ED EXAM, GENERAL - Physical Exam Exam: See Below Exam Limited By: No Limitations General Appearance: Alert, No Apparent Distress Nose: Normal Inspection, Normal Mucosa, No Blood Throat/Mouth: Normal Inspection, Normal Lips, Normal Teeth, Normal Gums Head: Atraumatic, Normocephalic Neck: Normal Inspection, Supple, Non-Tender Respiratory/Chest: No Respiratory Distress, Lungs Clear, Normal Breath Sounds Cardiovascular: Normal Peripheral Pulses, Regular Rate, Rhythm, No Edema, No Gallop GI/Abdominal: Normal Bowel Sounds, Soft, Non-Tender, No Organomegaly Back Exam: Normal Inspection, Full Range of Motion Course - Vital Signs Text/Narrative:: platelets 17K Last Recorded V/S: Last Vital Signs Temp 36.9 C 12/23/19 20:28 Pulse 76 12/23/19 20:28 Resp 18 12/23/19 20:28 BP 124/74 12/23/19 20:28 Pulse Ox 97 12/23/19 20:28 - Orders/Labs/Meds Labs: Laboratory Tests 12/23/19 Range/Units 20:50 WBC 4.2 L (4.5-12.0) X10-3/uL RBC 2.98 L (4.30-5.75) x10(6)uL Hgb 9.1 L (13.5-17.8) g/dL Hct 26.8 L (30.0-51.3) % MCV 90.1 (80-96) fL MCH 30.7 (27.7-33.6) pg MCHC 34.0 (32.2-35.4) g/dL RDW 14.7 (11.5-15.5) % Plt Count 17 L* (125-369) X10(3)uL MPV 10.0 (7.4-10.4) fL Neut % (Auto) 14.7 L (46-82) % Lymph % (Auto) 20.1 (13-37) % [place] % (Auto) 65.0 H (4-12) % Eos % (Auto) 0 L (1.0-5.0) % Baso % (Auto) 0 (0-2) % Neut # (Auto) 0.6 L (1.6-8.3) # Lymph # (Auto) 0.8 (0.6-5.0) # [place] # (Auto) 2.8 H (0.0-1.3) # Eos # (Auto) 0.0 (0.0-0.8) # Baso # (Auto) 0.0 (0.0-0.2) # Departure - Departure Time of Disposition: 21:30 Disposition: Home, Self-Care 01 Condition: Good Clinical Impression: Pancytopenia, MDS (myelodysplastic syndrome) - Discharge Information Referrals: Janice Casper PA [Primary Care Provider] - Forms: ED Department Discharge Additional Instructions: Please read discharge instructions on MDS Keep your appointment to see your food safety coordinator/Oncologist as scheduled this month Sepsis Event Note (ED) - Evaluation Sepsis Screening Result: No Definite Risk - Focused Exam Vital Signs: Vital Signs Temp Pulse Resp BP Pulse Ox 12/23/19 20:28 36.9 C 76 18 124/74 97
== END 2019-12-23 21:38 | disposition home or self-care (01) ==
LOC: FB.ED 20:18
DX: D61.818 Other pancytopenia (principal); D46.9 Myelodysplastic syndrome, unspecified; E78.00 Pure hypercholesterolemia, unspecified; I25.2 Old myocardial infarction; I25.10 Atherosclerotic heart disease of native coronary artery without angina pectoris; E11.9 Type 2 diabetes mellitus without complications; Z79.82 Long term (current) use of aspirin; Z79.899 Other long term (current) drug therapy; Z79.4 Long term (current) use of insulin; Z95.5 Presence of coronary angioplasty implant and graft
CPT/HCPCS: 36415; 85025; 99282

== ENCOUNTER 2019-12-28 07:54 | Day surgery (SDC) | payer MEDICARE, MEDICAID ==
[~2019-12-28 07:54] MED LIST: Sodium Chloride 0.9% 10 ML Syringe FLUSH PRN
[2019-12-28] MEDS ORDERED: Lidocaine 1% PF 2 ML SDV INJECT ONE (07:55)
[2019-12-28] MEDS ORDERED: fentaNYL 100 MCG/2 ML SDV IV ONE (07:55)
[2019-12-28] MEDS ORDERED: Propofol 200 MG/20 ML SDV IV ONE (07:55)
[2019-12-28] MEDS: Sodium Chloride 0.9% 250 ML IV SCH ×2 (08:39→09:15)
[2019-12-28] MEDS ORDERED: 50% Dextrose in Water 50 ML Syringe IVPUSH ONE (09:28)
[2019-12-28] MEDS ORDERED: Sodium Chloride 0.9% 1,000 ML IV SCH (09:45)
[2019-12-28] MEDS ORDERED: Lactated Ringers 1,000 ML IV SCH (10:00)
[2019-12-28] MEDS ORDERED: Bupivacaine 0.5% 30 ML SDV INJECT ONE (10:21)
[2019-12-28] MEDS ORDERED: Lidocaine 1% with EPINEPHrine 1:100,000 20 ML MDV INJECT ONE (10:21)
--- NOTE | 2019-12-28 11:12 | PCM.OPNOTE ---
- General Post-Op/Procedure Note Date of Surgery/Procedure: 12/28/19 Operative Procedure(s): left ej port placement Findings: central line placed without difficulty Pre Op Diagnosis: anemia and thrombocytopenia Chronic Post-Op Diagnosis: Same Anesthesia Technique: Local (8 ml 1 % lido with epi/0.5% buvipicaine), MAC Primary Surgeon: Jesus Alberto Chin Anesthesia Provider: Goran Arboleda Pathology: none EBL in mLs: 25 Complications: None Condition: Good Free Text/Narrative:: Intake & Output 12/27/19 12/28/19 12/28/19 22:59 06:59 14:59 Intake Total 432 Balance 432
--- NOTE | 2019-12-28 12:01 | CR ---
INDICATION: Port placement. CHEST X-RAY: A single AP upright view of the chest was obtained 12/28/19 and compared with 04/02/19 which noted the heart to be enlarged. The aorta is tortuous with calcification in the arch. A central line is noted placed from the left subclavian area with the tip appearing to be in good position in the area at the SVC above the right atrium. A definite complicating process was not identified. No definite active infiltrate, effusion, contusion or pneumothorax was identified. IMPRESSION: Satisfactory placement of A-port. MTDD
[2019-12-28 12:22] VITALS: BP 155/77; PULSE 65
--- NOTE | 2019-12-29 07:36 | CR ---
INDICATION: Port placement. C-ARM RADIOGRAPHY LESS THAN 1 HOUR: 2 minutes C-arm fluoroscopy time was utilized during port placement, 12/28/19. A single image was obtained. ERICK
--- NOTE | 2019-12-29 08:12 | OR ---
DATE OF OPERATION: 12/28/2019 SURGEON: Jesus Alberto Chin MD PROCEDURE PERFORMED: Left external jugular port placement. PREOPERATIVE DIAGNOSIS: Myelodysplastic disorder. POSTOPERATIVE DIAGNOSIS: Myelodysplastic disorder. INDICATIONS FOR PROCEDURE: This is a 59-year-old male, who has had issues with thrombocytopenia, as well as anemia, secondary to myelodysplastic disorder. A port was requested to aid in transfusions and blood draws. DESCRIPTION OF OPERATION: After an excellent IV sedation was administered, the patient was prepped and draped in usual sterile manner. The patient did have a prominent external jugular, which was easily visualized. Grand total of 8 mL of 1:1 mixture of 1% lidocaine with epinephrine and 0.5% bupivacaine was used to infiltrate both the planned port site as well as the insertion site in the external jugular, as well as the tract between these two sites. We did a cutdown on the external jugular. Careful blunt dissection was carried out and the external jugular was exposed. A suture was placed proximally and distally. The distal suture was tied off, after appearing that the vein was of adequate size for our port. An X-Port isp implantable port by [employer] access [employer], reference number [id number], lot number [id number] with an expiration date of 08/10/2020 was then used. The catheter itself was tunneled from the planned pocket site, which was created by making an incision approximately 3 cm below the clavicle and using careful blunt dissection to create our port site. The port was placed to ensure adequate fit, and it was snug and did not appear to flip. Once this port site was created, the catheter was tunneled from this incision to the neck incision. A venotomy was then made, and using the vein pick, the 8-[place] catheter was then inserted down the external jugular, and under radiographic evaluation, was placed in the superior vena cava and was noted to aspirate and flush freely. The proximal tie was then tied. The distal tie was then tied around the catheter as well and an additional 2-0 black silk tie was placed proximal to the proximal tie as well and tied. The catheter was then cut to length, attached to the port, which had been pre-flushed. It was then inserted into the pocket that was created. It was again tested to see that it aspirated and flushed well, and then Hep-Lock was used to Hep-Lock the port site itself. The port was then tacked into position with a suture of 3-0 Vicryl through one of the tack points, as well as around the catheter itself, and given the tightness, it did not appear that flipping would be an issue. The subcu fat and both incision sites were then reapproximated with a running 3-0 Vicryl. 4-0 Vicryl was used to close the skin. Dermabond and Steri-Strips were then applied over the incisions themselves. The patient tolerated the procedure well, was taken to Recovery. Will be getting a postprocedure chest x-ray to confirm position. /[id number] SO/MILES
== END 2019-12-28 12:35 | disposition home or self-care (01) ==
LOC: FB.SDS 07:54
PROVIDERS: ATTEND Surgery
DX: D46.C Myelodysplastic syndrome with isolated del(5q) chromosomal abnormality (principal); I12.9 Hypertensive chronic kidney disease with stage 1 through stage 4 chronic kidney disease, or unspecified chronic kidney disease; E11.22 Type 2 diabetes mellitus with diabetic chronic kidney disease; N18.2 Chronic kidney disease, stage 2 (mild); D63.1 Anemia in chronic kidney disease; D69.6 Thrombocytopenia, unspecified; Z88.8 Allergy status to other drugs, medicaments and biological substances; Z88.6 Allergy status to analgesic agent; Z79.899 Other long term (current) drug therapy; Z79.4 Long term (current) use of insulin; Z79.82 Long term (current) use of aspirin; Z79.01 Long term (current) use of anticoagulants
CPT/HCPCS: 00532-QZ; 36415; 36430; 76000; 82962; 85025; J1642; J2001; J2704; J3010; J3490; J7030; J7050; P9034

== ENCOUNTER 2020-01-03 16:26 | Emergency (ER) | payer MEDICARE, MEDICAID ==
[2020-01-03] MEDS ORDERED: Acetaminophen/HYDROcodone 325-5 MG Tab PO ONE ×2 (16:27→17:17)
--- NOTE | 2020-01-03 17:06 | EDM.PDOC ---
ED HPI GENERAL MEDICAL PROBLEM - General Stated Complaint: STOMACH HURTS,DEEP BREATHS HURTS,DIRRAEIA Time Seen by Provider: 01/03/20 17:05 Source of Information: Reports: Patient History Limitations: Reports: No Limitations - History of Present Illness INITIAL COMMENTS - FREE TEXT/NARRATIVE: 59-year-old male with history of end-stage renal disease status post renal transplant with hypertension and diabetes mellitus and thrombocytopenia who presents complaining of left-sided abdominal pain that has been ongoing and intermittent for the past year. He had a port placed last week by Dr. Chin in his left chest and left subclavian and he reports that since that time he has had pain in the area around the port that is a sharp type pain quite a bit of bruising around it. He also reports that there is pain when he takes a deep breath. He reports that he also has been having pain in his lower abdomen and left abdomen that is like the pain that he has had in the past and it seems to have been worse over the past 5 days since the surgery. He reports the pain as an 8/10. He has had no nausea or vomiting. He has been able to eat and drink normally. He has had no fevers or chills. He still urinates and has noted no hematuria or dysuria. He does have chronic diarrhea and reports that that is ongoing. It really isn't any worse than he has had previously. No weakness. He has had some mild intermittent dizziness. No syncope or presyncope. He is having no difficulty breathing and the pain in his left chest is with palpation, deep breath and movements. It is also just around the area of the port and there is quite a bit of ecchymosis here. There are no other associated signs or symptoms. There are no other modifying factors. 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: Other (see below) (Nothing) left abdomen and chest Pain Score (Numeric/FACES): 8 - Related Data Allergies Allergy/AdvReac Type Severity Reaction Status Date / Time NSAIDS (Non-Steroidal Allergy Other Verified 01/03/20 18:12 Anti-Inflamma zoster vaccine live Allergy Other Verified 01/03/20 18:12 [From Zostavax (PF)] mmr Allergy Other Uncoded 01/03/20 18:12 Home Meds: Home Meds Cholecalciferol (Vitamin D3) [Vitamin D3] 2,000 unit PO DAILY 06/07/15 [History] calcitrioL [Rocaltrol] 0.5 mcg PO DAILY 08/22/15 [History] Magnesium Oxide [Magnesium] 500 mg PO TID 07/23/17 [History] Sodium Bicarbonate 650 mg PO BID 07/23/17 [History] predniSONE [Prednisone] 10 mg PO DAILY 09/17/17 [History] Tacrolimus [Prograf] 0.5 mg PO Q12H 02/24/18 [History] Fluconazole [Diflucan] 200 mg PO DAILY 08/07/18 [History] Insulin Degludec [Tresiba Flextouch U-100] 15 units SQ DAILY 08/07/18 [History] carvediloL [Carvedilol] 6.25 mg PO BID 10/16/18 [History] Aspirin [Halfprin] 81 mg PO DAILY 02/20/19 [History] Pantoprazole Sodium [Protonix] 40 mg PO BID 02/20/19 [History] Gabapentin [Neurontin] 600 mg PO BID 04/02/19 [History] Isosorbide Mononitrate [Imdur] 30 mg PO DAILY 04/02/19 [History] glipiZIDE [Glucotrol] 5 mg PO DAILY 04/02/19 [History] tiZANidine [Zanaflex] 1 tab PO BEDTIME 04/06/19 [History] Ciprofloxacin [Ciprofloxacin HCl] 250 mg PO BID 12/24/19 [History] Acetaminophen/Codeine [Tylenol with Codeine No.3 300MG/30MG] 1 tab PO Q4H PRN #10 tab 12/28/19 [Rx] Past Medical History HEENT History: Reports: Impaired Vision Other HEENT History: Pt wears glasses Cardiovascular History: Reports: CAD, High Cholesterol, TN, Stents, Other (See Below) Other Cardiovascular History: viral menigitis 2015 (also "had TN 09/2017 went to [facility] they put in a stent" this recorded on 09/14/17) Gastrointestinal History: Reports: Cholelithiasis, Colon Polyp, Diverticulosis, Hemorrhoids Genitourinary History: Reports: Renal Disease, UTI, Recurrent, Other (See Below) Other Genitourinary History: kidney transplant (2001) pts fistula was removed early may 2017 from left arm Musculoskeletal History: Reports: Back Pain, Chronic Other Musculoskeletal History: has lump on neck vein and will need it removed Neurological History: Reports: Other (See Below) Other Neuro History: Cryptococcal meningitis Psychiatric History: Reports: Addiction, Anxiety, Depression, Panic Attack, Other (See Below) Other Psychiatric History: gets mildly depressed. POST ALCOHOLIC 1998 Endocrine/Metabolic History: Reports: Diabetes, Type II, Hypoparathyroidism Hematologic History: Reports: Anemia, Blood Transfusion(s), Idiopathic Thrombocytopenia Other Hematologic History: myelodysplastic syndrome Immunologic History: Reports: Immunosuppression, Solid Organ Transplant Other Immunologic History: kidney transplant 2001 - Infectious Disease History Infectious Disease History: Reports: None Other Infectious Disease History: MRSA-urine - Past Surgical History Cardiovascular Surgical History: Reports: Other (See Below) (Port placed in left chest and in left subclavian.) GI Surgical History: Reports: Appendectomy, Cholecystectomy, Colonoscopy Male Surgical History: Reports: Other (See Below) Other Male Surgeries/Procedures: kidney transplant in 2001 Endocrine Surgical History: Reports: Other (See Below) Other Endocrine Surgeries/Procedures: had thyroid removed Musculoskeletal Surgical History: Reports: Hip Replacement Other Musculoskeletal Surgeries/Procedures:: both hips-replaced Social & Family History - Family History Cardiac: Reports: CAD, Other (See Below) Other Cardiac Family History: Brother had bypass GI: Reports: None OBGYN: Reports: None, Musculoskeletal: Reports: None Neurological: Reports: None Psychiatric: Reports: None Endocrine/Metabolic: Reports: Diabetes, type II Immunologic: Reports: None - Tobacco Use Smoking Status *Q: Unknown Ever Smoked (Nonsmoker) Tobacco Use Within Last Twelve Months: Smokeless Tobacco (Chews snuff) - Caffeine Use Caffeine Use: Reports: Coffee Other Caffeine Use: 2-3 cups per day Caffeine Use Comment: 2-3 cups/day - Alcohol Use Alcohol Use History: Yes Alcohol Use in Last Twelve Months: No Alcohol Use Comment: Sober since 1998 but with history of alcohol abuse in the past. - Recreational Drug Use Recreational Drug Use: No - Living Situation & Occupation Living situation: Reports: Alone Occupation: Disabled ED ROS GENERAL - Review of Systems Review Of Systems: See Below Constitutional: Reports: Malaise. Denies: Fever, Chills, Diaphoresis HEENT: Reports: No Symptoms Respiratory: Reports: Pleuritic Chest Pain. Denies: Shortness of Breath, Hemoptysis Cardiovascular: Reports: Chest Pain (As described above). Denies: Lightheadedness, Orthopnea Endocrine: Reports: No Symptoms GI/Abdominal: Reports: Abdominal Pain (Chronic but he reports it feels worse), Diarrhea (Chronic ). Denies: Nausea, Vomiting : Reports: No Symptoms Musculoskeletal: Reports: No Symptoms Skin: Reports: No Symptoms Neurological: Reports: No Symptoms Hematologic/Lymphatic: Reports: Easy Bruising Immunologic: Reports: No Symptoms ED EXAM, GENERAL - Physical Exam Exam: See Below Exam Limited By: No Limitations General Appearance: Alert, WD/WN, Mild Distress (Appears in some pain. Appears nontoxic.) Eye Exam: Bilateral Eye: EOMI, Normal Inspection, Other (Sclera anicteric) Ears: Normal External Exam, Hearing Grossly Normal Ear Exam: Bilateral Ear: Auricle Normal Nose: Normal Inspection, Normal Mucosa, No Blood Throat/Mouth: Normal Inspection, Normal Lips, Normal Oropharynx, Normal Voice, No Airway Compromise Head: Atraumatic, Normocephalic Neck: Normal Inspection, Supple, Non-Tender, Full Range of Motion Respiratory/Chest: No Respiratory Distress, Lungs Clear, Normal Breath Sounds, No Accessory Muscle Use, Other (Tender over left upper chest with port site with was that show no evidence of erythema or cellulitis. There is quite a bit of ecchymosis around this area. Is no crepitus or subcutaneous emphysema.) Cardiovascular: Normal Peripheral Pulses, Regular Rate, Rhythm, No Gallop, No Murmur Peripheral Pulses: 2+: Radial (L), Radial (R) GI/Abdominal: Normal Bowel Sounds, Soft, No Mass, Tender (Tender in lower ab dominal midline and also on the left.) Back Exam: Normal Inspection, Full Range of Motion Extremities: Normal Inspection, Normal Range of Motion, Normal Capillary Refill, Pedal Edema (Unchanged according to the patient.) Neurological: Alert, Oriented, CN II-XII Intact, Normal Cognition, No Motor/Sensory Deficits Psychiatric: Normal Affect Skin Exam: Warm, Dry, Intact, No Rash, Ecchymosis (Around the port on his left chest and also over his abdominal wall in multiple areas.) EKG INTERPRETATION EKG Date: 01/03/20 Time: 17:37 Rhythm: NSR Rate (Beats/Min): 68 [place]: Normal P-Wave: Enlarged QRS: LBBB ST-T: Other (T-wave inversion in lead III) QT: Prolonged (slightly prolonged QTc.) Comparison: No Change (No change from EKG performed on 04/01/2019.) Course - Vital Signs Last Recorded V/S: Last Vital Signs Temp 36.4 C 01/03/20 16:50 Pulse 68 01/03/20 16:50 Resp 16 01/03/20 16:50 BP 151/88 H 01/03/20 16:50 Pulse Ox 100 01/03/20 16:50 - Orders/Labs/Meds Orders: Active Orders 24 hr Category Date Time Status EKG Documentation Completion [RC] ASDIRECTED Care 01/03/20 17:17 Active Chest 2V [CR] Stat Exams 01/03/20 17:16 Taken EKG 12 Lead [EK] Routine Ther 01/03/20 17:17 Ordered Labs: Laboratory Tests 01/03/20 01/03/20 01/03/20 Range/Units 17:30 17:30 17:30 WBC 4.0 L (4.5-12.0) X10-3/uL RBC 3.33 L (4.30-5.75) x10(6)uL Hgb 10.1 L (13.5-17.8) g/dL Hct 29.8 L (30.0-51.3) % MCV 89.6 (80-96) fL MCH 30.2 (27.7-33.6) pg MCHC 33.7 (32.2-35.4) g/dL RDW 14.9 (11.5-15.5) % Plt Count 5 L* (125-369) X10(3)uL MPV 5.5 L (7.4-10.4) fL Add Manual Diff Yes Neutrophils % (Manual) 13 L (46-82) % Lymphocytes % (Manual) 81 H (13-37) % Monocytes % (Manual) 3 L (4-12) % Promyelocytes % 3 H (0-0) % PT (9.0-11.1) sec INR (1.00-1.24) APTT (24.4-33.2) SECONDS Sodium 139 (135-145) mmol/L Potassium 5.3 (3.5-5.3) mmol/L Chloride 106 (100-110) mmol/L Carbon Dioxide 20 L (21-32) mmol/L BUN 55 H (7-18) mg/dL Creatinine 1.9 H (0.70-1.30) mg/dL Est Cr Clr Drug Dosing TNP Estimated GFR (MDRD) 36 L (>60) BUN/Creatinine Ratio 28.9 H (9-20) Glucose 210 H (80-116) mg/dL Calcium 6.9 L (8.6-10.2) mg/dL Magnesium (1.8-2.5) mg/dL Total Bilirubin 0.4 (0.1-1.3) mg/dL AST 33 H D (5-25) IU/L ALT 46 H D (12-36) U/L Alkaline Phosphatase 168 H (56-112) IU/L C-Reactive Protein (0.5-0.9) mg/dL Total Protein 6.8 (6.0-8.0) g/dL Albumin 2.9 L (3.2-4.6) g/dL Globulin 3.9 g/dL Albumin/Globulin Ratio 0.7 Urine Color Yellow (YELLOW) Urine Appearance Clear (CLEAR) Urine pH 5.0 (5.0-6.5) Ur Specific [place] 1.010 (1.010-1.025) Urine Protein Trace (NEGATIVE) mg/dL Urine Glucose (UA) 50 H (NORMAL) mg/dL Urine Ketones Negative (NEGATIVE) mg/dL Urine Occult Blood Large H (NEGATIVE) Urine Nitrite Negative (NEGATIVE) Urine Bilirubin Negative (NEGATIVE) Urine Urobilinogen Normal (NEGATIVE) mg/dL Ur Leukocyte Esterase Negative (NEGATIVE) Urine RBC 0-5 (0-5) Urine WBC 0-5 (0-5) Ur Squamous Epith Cells Occasional (NS,R,O) Urine Bacteria Rare H (NS) 01/03/20 01/03/20 01/03/20 Range/Units 17:30 17:30 17:30 WBC (4.5-12.0) X10-3/uL RBC (4.30-5.75) x10(6)uL Hgb (13.5-17.8) g/dL Hct (30.0-51.3) % MCV (80-96) fL MCH (27.7-33.6) pg MCHC (32.2-35.4) g/dL RDW (11.5-15.5) % Plt Count (125-369) X10(3)uL MPV (7.4-10.4) fL Add Manual Diff Neutrophils % (Manual) (46-82) % Lymphocytes % (Manual) (13-37) % Monocytes % (Manual) (4-12) % Promyelocytes % (0-0) % PT 11.0 (9.0-11.1) sec INR 1.02 (1.00-1.24) APTT 35.2 H (24.4-33.2) SECONDS Sodium (135-145) mmol/L Potassium (3.5-5.3) mmol/L Chloride (100-110) mmol/L Carbon Dioxide (21-32) mmol/L BUN (7-18) mg/dL Creatinine (0.70-1.30) mg/dL Est Cr Clr Drug Dosing Estimated GFR (MDRD) (>60) BUN/Creatinine Ratio (9-20) Glucose (80-116) mg/dL Calcium (8.6-10.2) mg/dL Magnesium 1.7 L (1.8-2.5) mg/dL Total Bilirubin (0.1-1.3) mg/dL AST (5-25) IU/L ALT (12-36) U/L Alkaline Phosphatase (56-112) IU/L C-Reactive Protein 4.3 H* (0.5-0.9) mg/dL Total Protein (6.0-8.0) g/dL Albumin (3.2-4.6) g/dL Globulin g/dL Albumin/Globulin Ratio Urine Color (YELLOW) Urine Appearance (CLEAR) Urine pH (5.0-6.5) Ur Specific [place] (1.010-1.025) Urine Protein (NEGATIVE) mg/dL Urine Glucose (UA) (NORMAL) mg/dL Urine Ketones (NEGATIVE) mg/dL Urine Occult Blood (NEGATIVE) Urine Nitrite (NEGATIVE) Urine Bilirubin (NEGATIVE) Urine Urobilinogen (NEGATIVE) mg/dL Ur Leukocyte Esterase (NEGATIVE) Urine RBC (0-5) Urine WBC (0-5) Ur Squamous Epith Cells (NS,R,O) Urine Bacteria (NS) Meds: Medications Discontinued Medications Generic Name Dose Route Start Last Admin Trade Name Oskar PRN Reason Stop Dose Admin Hydrocodone Bitart/Acetaminophen 2 tab 01/03/20 17:17 01/03/20 17:25 [place] 325-5 Mg PO 01/03/20 17:18 2 tab ONETIME ONE Administration Magnesium Oxide 800 mg 01/03/20 19:17 Magnesium Oxide PO 01/03/20 19:18 ONETIME ONE - Radiology Interpretation Free Text/Narrative:: Chest x-ray PA and lateral shows no acute disease. Specifically, there is no pneumothorax or hemothorax. - Re-Assessments/Exams Free Text/Narrative Re-Assessment/Exam: 01/03/20 19:10: After the 2 hydrocodone 5/325 tablets and upon reevaluation the patient feels improved. His abdomen remains soft. There is no rebound or guarding. He remains hemodynamically and respiratory stable. His blood tests were for the most part unchanged or reassuring except he does have a platelet count of 5000. His magnesium level was 1.7. The abdominal pain is something that has been ongoing and intermittent for the past one year. His diarrhea is also chronic. I do not see any concerning sign or symptoms and the patient very much wants to go home at present. He states he feels hungry and wants to eat. He does have fairly significant thrombocytopenia and he definitely needs to follow-up with his primary doctor tomorrow. He also needs to get his magnesium prescription filled and begin taking that again. I will give him magnesium oxide 800 mg by mouth now. I will also give him a take home pack of hydrocodone 5/325 (#4) to be taken one by mouth every 6 hours. Percussions and reasons to return to the emergency department were discussed with the patient while he was in the emergency department and had been detailed in the patient's discharge instructions. The patient is comfortable with the plans for discharge and is actually requesting discharge. Departure - Departure Time of Disposition: 19:25 Disposition: Home, Self-Care 01 Condition: Fair (Stable) Clinical Impression: Abdominal pain of unknown cause, Chronic diarrhea, Thrombocytopenia, Hypomagnesemia, Musculoskeletal chest pain - Discharge Information Instructions: Abdominal Pain, Adult, [id number], Pain Medicine Instructions, [id number], Diarrhea, Adult, [id number], Chest Wall Pain, [id number], Chronic Diarrhea Referrals: Janice Casper PA [Primary Care Provider] - Additional Instructions: Your platelet count was 5000. You need to follow-up with your primary provider tomorrow in regard to this. Your magnesium level was 1.7. You need to get your magnesium prescription filled and taken as directed. I am unsure why you are having the abdominal pain and diarrhea. You should also follow-up with your primary provider in regard to this as well. Education as prescribed for more severe pain again (hydrocodone 5/325 take-home pack). Back to the emergency department for fever, vomiting, marked increase in pain, trouble breathing, severe weakness, blood in your stool or any other concerning sign or symptom. Sepsis Event Note (ED) - Focused Exam Vital Signs: Vital Signs Temp Pulse Resp BP Pulse Ox 01/03/20 16:50 36.4 C 68 16 151/88 H 100 - My Orders Last 24 Hours: My Active Orders 01/03/20 17:16 Chest 2V [CR] Stat 01/03/20 17:17 EKG Documentation Completion [RC] ASDIRECTED EKG 12 Lead [EK] Routine - Assessment/Plan Last 24 Hours: My Active Orders 01/03/20 17:16 Chest 2V [CR] Stat 01/03/20 17:17 EKG Documentation Completion [RC] ASDIRECTED EKG 12 Lead [EK] Routine
[2020-01-03] MEDS ORDERED: Magnesium Oxide 400 MG Tab PO ONE (19:17)
[2020-01-03 19:56] VITALS: BP 150/97; PULSE 71
--- NOTE | 2020-01-04 09:56 | CR ---
INDICATION: Chest pain with breathing. CHEST, TWO VIEWS: PA and lateral views of the chest were obtained 01/03/20 and compared with 04/02/19 and 04/01/19. The heart appears to be at the upper limits of normal in size. The aorta is tortuous with calcification in the arch. A Mckinley-Cath is noted in place with tip above the right atrium in the area of the SVC. Hypertrophic degenerative changes are noted in the thoracic spine. Minimal dextroconvex scoliosis is noted in the upper middle thoracic spine. A definite active infiltrate or effusion was not identified. IMPRESSION: 1. No acute process. 2. ASHD. 3. DJD spine with minimal scoliosis upper middle thoracic spine. MTDD
== END 2020-01-03 19:41 | disposition home or self-care (01) ==
LOC: FB.ED 16:26
DX: K52.9 Noninfective gastroenteritis and colitis, unspecified (principal); D69.6 Thrombocytopenia, unspecified; E83.42 Hypomagnesemia; R07.9 Chest pain, unspecified; I44.7 Left bundle-branch block, unspecified; M79.81 Nontraumatic hematoma of soft tissue; I25.10 Atherosclerotic heart disease of native coronary artery without angina pectoris; I25.2 Old myocardial infarction; I12.0 Hypertensive chronic kidney disease with stage 5 chronic kidney disease or end stage renal disease; E11.22 Type 2 diabetes mellitus with diabetic chronic kidney disease; N18.6 End stage renal disease; Z94.0 Kidney transplant status; F17.220 Nicotine dependence, chewing tobacco, uncomplicated; Z88.6 Allergy status to analgesic agent; Z88.7 Allergy status to serum and vaccine; Z79.4 Long term (current) use of insulin; Z79.82 Long term (current) use of aspirin; Z79.899 Other long term (current) drug therapy; Z90.49 Acquired absence of other specified parts of digestive tract
CPT/HCPCS: 36415; 71046; 80053; 81001; 83735; 85025; 85610; 85730; 86140; 93005; 99284; A9270; 93010

== ENCOUNTER 2020-01-17 11:06 | Inpatient (IN) | payer MEDICARE, MEDICAID, OTHER ==
[2020-01-17] MEDS ORDERED: Acetaminophen 325 MG Tab PO ONE ×2 (11:44→16:44)
--- NOTE | 2020-01-17 11:53 | EDM.PDOC ---
ED HPI GENERAL MEDICAL PROBLEM - General Chief Complaint: General Stated Complaint: WEAKNESS,LEG PAIN Time Seen by Provider: 01/17/20 11:48 Source of Information: Reports: Patient, Old Records, RN History Limitations: Reports: No Limitations - History of Present Illness INITIAL COMMENTS - FREE TEXT/NARRATIVE: 59 yo male who lives alone and who has multiple chronic medical conditions presents with onset of fever last night with weakness. He denies any localizing signs or symptoms. No known exposures. He has chronic diarrhea. He took acetaminophen 325 mg this morning for his sx's. Onset: Gradual Onset Date: 01/16/20 Duration: Hour(s):, Constant Location: Reports: Generalized Quality: Reports: Other (new pain is not reported.) Severity: Moderate Improves with: Reports: None Worsens with: Reports: Other (time) Context: Reports: Other (See HPI) Associated Symptoms: Reports: Fever/Chills, Malaise, Weakness. 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 - Related Data Allergies Allergy/AdvReac Type Severity Reaction Status Date / Time NSAIDS (Non-Steroidal Allergy Other Verified 01/03/20 18:12 Anti-Inflamma zoster vaccine live Allergy Other Verified 01/03/20 18:12 [From Zostavax (PF)] mmr Allergy Other Uncoded 01/03/20 18:12 Home Meds: Home Meds Cholecalciferol (Vitamin D3) [Vitamin D3] 2,000 unit PO DAILY 06/07/15 [History] calcitrioL [Rocaltrol] 0.5 mcg PO DAILY 08/22/15 [History] Magnesium Oxide [Magnesium] 500 mg PO TID 07/23/17 [History] Sodium Bicarbonate 650 mg PO BID 07/23/17 [History] predniSONE [Prednisone] 10 mg PO DAILY 09/17/17 [History] Tacrolimus [Prograf] 0.5 mg PO Q12H 02/24/18 [History] Fluconazole [Diflucan] 200 mg PO DAILY 08/07/18 [History] Insulin Degludec [Tresiba Flextouch U-100] 15 units SQ DAILY 08/07/18 [History] carvediloL [Carvedilol] 6.25 mg PO BID 10/16/18 [History] Aspirin [Halfprin] 81 mg PO DAILY 02/20/19 [History] Pantoprazole Sodium [Protonix] 40 mg PO BID 02/20/19 [History] Gabapentin [Neurontin] 600 mg PO BID 04/02/19 [History] Isosorbide Mononitrate [Imdur] 30 mg PO DAILY 04/02/19 [History] glipiZIDE [Glucotrol] 5 mg PO DAILY 04/02/19 [History] tiZANidine [Zanaflex] 1 tab PO BEDTIME 04/06/19 [History] Ciprofloxacin [Ciprofloxacin HCl] 250 mg PO BID 12/24/19 [History] Acetaminophen/Codeine [Tylenol with Codeine No.3 300MG/30MG] 1 tab PO Q4H PRN #10 tab 12/28/19 [Rx] Past Medical History HEENT History: Reports: Impaired Vision Other HEENT History: Pt wears glasses Cardiovascular History: Reports: CAD, High Cholesterol, IL, Stents, Other (See Below) Other Cardiovascular History: viral menigitis 2015 (also "had IL 09/2017 went to [facility] they put in a stent" this recorded on 09/14/17) Respiratory History: Reports: Other (See Below) Gastrointestinal History: Reports: Cholelithiasis, Colon Polyp, Diverticulosis, Hemorrhoids Genitourinary History: Reports: Renal Disease, UTI, Recurrent, Other (See Below) Other Genitourinary History: kidney transplant (2001) pts fistula was removed early may 2017 from left arm Musculoskeletal History: Reports: Back Pain, Chronic Other Musculoskeletal History: has lump on neck vein and will need it removed Neurological History: Reports: Other (See Below) Other Neuro History: Cryptococcal meningitis Psychiatric History: Reports: Addiction, Anxiety, Depression, Panic Attack, Other (See Below) Other Psychiatric History: gets mildly depressed. POST ALCOHOLIC 1998 Endocrine/Metabolic History: Reports: Diabetes, Type II, Hypoparathyroidism Hematologic History: Reports: Anemia, Blood Transfusion(s), Idiopathic Thrombocytopenia Other Hematologic History: myelodysplastic syndrome Immunologic History: Reports: Immunosuppression, Solid Organ Transplant Other Immunologic History: kidney transplant 2001 Oncologic (Cancer) History: Reports: None Dermatologic History: Reports: None - Infectious Disease History Infectious Disease History: Reports: None Other Infectious Disease History: MRSA-urine - Past Surgical History Head Surgeries/Procedures: Reports: None Cardiovascular Surgical History: Reports: Other (See Below) Respiratory Surgical History: Reports: None GI Surgical History: Reports: Appendectomy, Cholecystectomy, Colonoscopy Male Surgical History: Reports: Other (See Below) Other Male Surgeries/Procedures: kidney transplant in 2001 Endocrine Surgical History: Reports: Other (See Below) Other Endocrine Surgeries/Procedures: had thyroid removed Musculoskeletal Surgical History: Reports: Hip Replacement Other Musculoskeletal Surgeries/Procedures:: both hips-replaced Oncologic Surgical History: Reports: None Dermatological Surgical History: Reports: None Social & Family History - Family History Family Medical History: Noncontributory Cardiac: Reports: CAD, Other (See Below) Other Cardiac Family History: Brother had bypass GI: Reports: None OBGYN: Reports: None, Musculoskeletal: Reports: None Neurological: Reports: None Psychiatric: Reports: None Endocrine/Metabolic: Reports: Diabetes, type II Immunologic: Reports: None - Caffeine Use Caffeine Use: Reports: Coffee Other Caffeine Use: 2-3 cups per day Caffeine Use Comment: 2-3 cups/day - Living Situation & Occupation Living situation: Reports: Alone Occupation: Disabled ED ROS GENERAL - Review of Systems Review Of Systems: See Below Constitutional: Reports: No Symptoms HEENT: Reports: No Symptoms Respiratory: Reports: No Symptoms Cardiovascular: Reports: No Symptoms Endocrine: Reports: No Symptoms GI/Abdominal: Reports: Diarrhea (chronic). Denies: Abdominal Pain, Nausea, Vomiting : Reports: Other (has CRF, s/p renal transplant) Musculoskeletal: Reports: No Symptoms Skin: Reports: Bruising (chronic from thrombocytopenia). Denies: Erythema Neurological: Reports: No Symptoms ED EXAM, GENERAL - Physical Exam Exam: See Below Exam Limited By: No Limitations General Appearance: Alert, WD/WN, Mild Distress Eye Exam: Bilateral Eye: Normal Inspection Ears: Normal External Exam, Normal Canal, Hearing Grossly Normal, Normal TMs Ear Exam: Bilateral Ear: Auricle Normal, Canal Normal, TM normal Nose: Other (dried blood around nares (has intermittent nose bleeds chronically)) Throat/Mouth: Normal Inspection, Normal Lips, Normal Oropharynx, Normal Voice, No Airway Compromise Head: Atraumatic, Normocephalic Neck: Normal Inspection Respiratory/Chest: No Respiratory Distress, Lungs Clear, Normal Breath Sounds, No Accessory Muscle Use Cardiovascular: Regular Rate, Rhythm, No Edema, Tachycardia GI/Abdominal: Normal Bowel Sounds, Soft, Non-Tender, Other (protuberant abdomen) Back Exam: Normal Inspection Extremities: Normal Inspection, Normal Range of Motion, Non-Tender, No Pedal Edema Neurological: Alert, Oriented, CN II-XII Intact, Normal Cognition, No Motor/Sensory Deficits Psychiatric: Normal Affect, Normal Mood Skin Exam: Warm, Dry, Intact, No Rash, Ecchymosis (scattered) Course - Vital Signs Text/Narrative:: Dr. Garcia called @ 1625h Last Recorded V/S: Last Vital Signs Temp 38.3 C H 01/17/20 15:30 Pulse 88 01/17/20 15:30 Resp 17 01/17/20 15:30 BP 88/54 L 01/17/20 15:30 Pulse Ox 95 01/17/20 15:30 - Orders/Labs/Meds Orders: Active Orders 24 hr Category Date Time Status Bladder Scan [RC] ASDIRECTED Care 01/17/20 15:03 Active C DIFFICILE AG/TOXIN W/REFLEX [RM] Stat Lab 01/17/20 11:52 Ordered CULTURE BLOOD [BC] Stat Lab 01/17/20 12:15 Received CULTURE BLOOD [BC] Stat Lab 01/17/20 12:20 Received Sodium Chloride 0.9% [Normal Saline] 1,000 ml Med 01/17/20 12:45 Active IV ASDIRECTED Sodium Chloride 0.9% [Normal Saline] 1,000 ml Med 01/17/20 15:15 Active IV ASDIRECTED Sodium Chloride 0.9% [Saline Flush] Med 01/17/20 11:24 Active 10 ml FLUSH ASDIRECTED PRN Saline Lock Insert [OM.PC] Routine Oth 01/17/20 11:24 Ordered Medication Orders Sodium Chloride (Normal Saline) 1,000 mls @ 500 mls/hr IV ASDIRECTED LARON Sodium Chloride (Normal Saline) 1,000 mls @ 500 mls/hr IV ASDIRECTED LARON Sodium Chloride (Saline Flush) 10 ml FLUSH ASDIRECTED PRN PRN Reason: Keep Vein Open Labs: Laboratory Tests 01/17/20 01/17/20 01/17/20 Range/Units 12:15 12:15 12:15 WBC 4.9 (4.5-12.0) X10-3/uL RBC 2.24 L (4.30-5.75) x10(6)uL Hgb 7.4 L (13.5-17.8) g/dL Hct 21.4 L* (30.0-51.3) % MCV 95.3 (80-96) fL MCH 33.1 (27.7-33.6) pg MCHC 34.8 (32.2-35.4) g/dL RDW 14.4 (11.5-15.5) % Plt Count 4 L* (125-369) X10(3)uL Sodium 135 (135-145) mmol/L Potassium 4.7 (3.5-5.3) mmol/L Chloride 101 D (100-110) mmol/L Carbon Dioxide 26 (21-32) mmol/L BUN 39 H D (7-18) mg/dL Creatinine 1.9 H (0.70-1.30) mg/dL Est Cr Clr Drug Dosing TNP Estimated GFR (MDRD) 36 L (>60) BUN/Creatinine Ratio 20.5 H (9-20) Glucose 181 H (80-116) mg/dL Lactic Acid (0.4-2.0) mmol/L Calcium 7.0 L (8.6-10.2) mg/dL Lactate Dehydrogenase 219 (85-227) U/L C-Reactive Protein (0.5-0.9) mg/dL Urine Color (YELLOW) Urine Appearance (CLEAR) Urine pH (5.0-6.5) Ur Specific [employer] (1.010-1.025) Urine Protein (NEGATIVE) mg/dL Urine Glucose (UA) (NORMAL) mg/dL Urine Ketones (NEGATIVE) mg/dL Urine Occult Blood (NEGATIVE) Urine Nitrite (NEGATIVE) Urine Bilirubin (NEGATIVE) Urine Urobilinogen (NEGATIVE) mg/dL Ur Leukocyte Esterase (NEGATIVE) Urine RBC (0-5) Urine WBC (0-5) Ur Squamous Epith Cells (NS,R,O) Amorphous Sediment Urine Bacteria (NS) SARS Virus RNA (PCR) (NEGATIVE) 01/17/20 01/17/20 01/17/20 Range/Units 12:15 12:15 14:08 WBC (4.5-12.0) X10-3/uL RBC (4.30-5.75) x10(6)uL Hgb (13.5-17.8) g/dL Hct (30.0-51.3) % MCV (80-96) fL MCH (27.7-33.6) pg MCHC (32.2-35.4) g/dL RDW (11.5-15.5) % Plt Count (125-369) X10(3)uL Sodium (135-145) mmol/L Potassium (3.5-5.3) mmol/L Chloride (100-110) mmol/L Carbon Dioxide (21-32) mmol/L BUN (7-18) mg/dL Creatinine (0.70-1.30) mg/dL Est Cr Clr Drug Dosing Estimated GFR (MDRD) (>60) BUN/Creatinine Ratio (9-20) Glucose (80-116) mg/dL Lactic Acid 0.8 (0.4-2.0) mmol/L Calcium (8.6-10.2) mg/dL Lactate Dehydrogenase (85-227) U/L C-Reactive Protein 10.5 H* (0.5-0.9) mg/dL Urine Color (YELLOW) Urine Appearance (CLEAR) Urine pH (5.0-6.5) Ur Specific [employer] (1.010-1.025) Urine Protein (NEGATIVE) mg/dL Urine Glucose (UA) (NORMAL) mg/dL Urine Ketones (NEGATIVE) mg/dL Urine Occult Blood (NEGATIVE) Urine Nitrite (NEGATIVE) Urine Bilirubin (NEGATIVE) Urine Urobilinogen (NEGATIVE) mg/dL Ur Leukocyte Esterase (NEGATIVE) Urine RBC (0-5) Urine WBC (0-5) Ur Squamous Epith Cells (NS,R,O) Amorphous Sediment Urine Bacteria (NS) SARS Virus RNA (PCR) Negative (NEGATIVE) 01/17/20 Range/Units 15:50 WBC (4.5-12.0) X10-3/uL RBC (4.30-5.75) x10(6)uL Hgb (13.5-17.8) g/dL Hct (30.0-51.3) % MCV (80-96) fL MCH (27.7-33.6) pg MCHC (32.2-35.4) g/dL RDW (11.5-15.5) % Plt Count (125-369) X10(3)uL Sodium (135-145) mmol/L Potassium (3.5-5.3) mmol/L Chloride (100-110) mmol/L Carbon Dioxide (21-32) mmol/L BUN (7-18) mg/dL Creatinine (0.70-1.30) mg/dL Est Cr Clr Drug Dosing Estimated GFR (MDRD) (>60) BUN/Creatinine Ratio (9-20) Glucose (80-116) mg/dL Lactic Acid (0.4-2.0) mmol/L Calcium (8.6-10.2) mg/dL Lactate Dehydrogenase (85-227) U/L C-Reactive Protein (0.5-0.9) mg/dL Urine Color Yellow (YELLOW) Urine Appearance Clear (CLEAR) Urine pH 5.0 (5.0-6.5) Ur Specific [employer] 1.010 (1.010-1.025) Urine Protein 30 H (NEGATIVE) mg/dL Urine Glucose (UA) Normal (NORMAL) mg/dL Urine Ketones 15 H (NEGATIVE) mg/dL Urine Occult Blood Large H (NEGATIVE) Urine Nitrite Negative (NEGATIVE) Urine Bilirubin Negative (NEGATIVE) Urine Urobilinogen Normal (NEGATIVE) mg/dL Ur Leukocyte Esterase Small H (NEGATIVE) Urine RBC 5-10 H (0-5) Urine WBC 0-5 (0-5) Ur Squamous Epith Cells Occasional (NS,R,O) Amorphous Sediment Few Urine Bacteria Rare H (NS) SARS Virus RNA (PCR) (NEGATIVE) Meds: Medications Generic Name Dose Route Start Last Admin Trade Name Freq PRN Reason Stop Dose Admin Sodium Chloride 1,000 mls @ 500 mls/hr 01/17/20 12:45 Normal Saline IV ASDIRECTED LARON Sodium Chloride 1,000 mls @ 500 mls/hr 01/17/20 15:15 Normal Saline IV ASDIRECTED LARON Sodium Chloride 10 ml 01/17/20 11:24 Saline Flush FLUSH ASDIRECTED PRN Keep Vein Open Discontinued Medications Generic Name Dose Route Start Last Admin Trade Name Freq PRN Reason Stop Dose Admin Acetaminophen 325 mg 01/17/20 11:44 01/17/20 13:19 Tylenol PO 01/17/20 11:45 325 mg NOW ONE Administration Departure - Departure Time of Disposition: 16:40 Disposition: Admitted As Inpatient 65 Condition: Fair Clinical Impression: Thrombocytopenia Fever Qualifiers: Fever type: unspecified Qualified Code(s): R50.9 - Fever, unspecified Anemia Qualifiers: Anemia type: unspecified type Qualified Code(s): D64.9 - Anemia, unspecified - Discharge Information Referrals: PCP,None [Ordering Only Provider] - Forms: ED Department Discharge Sepsis Event Note (ED) - Evaluation Sepsis Screening Result: Possible Severe Sepsis Risk - Focused Exam Vital Signs: Vital Signs Temp Pulse Resp BP Pulse Ox 01/17/20 15:30 38.3 C H 88 17 88/54 L 95 01/17/20 11:30 39.4 C H 105 H 15 86/48 L 94 L - My Orders Last 24 Hours: My Active Orders 01/17/20 11:24 Sodium Chloride 0.9% [Saline Flush] 10 ml FLUSH ASDIRECTED PRN Saline Lock Insert [OM.PC] Routine 01/17/20 11:52 C DIFFICILE AG/TOXIN W/REFLEX [RM] Stat 01/17/20 12:15 CULTURE BLOOD [BC] Stat 01/17/20 12:20 CULTURE BLOOD [BC] Stat 01/17/20 12:45 Sodium Chloride 0.9% [Normal Saline] 1,000 ml IV ASDIRECTED 01/17/20 15:03 Bladder Scan [RC] ASDIRECTED 01/17/20 15:15 Sodium Chloride 0.9% [Normal Saline] 1,000 ml IV ASDIRECTED - Assessment/Plan Last 24 Hours: My Active Orders 01/17/20 11:24 Sodium Chloride 0.9% [Saline Flush] 10 ml FLUSH ASDIRECTED PRN Saline Lock Insert [OM.PC] Routine 01/17/20 11:52 C DIFFICILE AG/TOXIN W/REFLEX [RM] Stat 01/17/20 12:15 CULTURE BLOOD [BC] Stat 01/17/20 12:20 CULTURE BLOOD [BC] Stat 01/17/20 12:45 Sodium Chloride 0.9% [Normal Saline] 1,000 ml IV ASDIRECTED 01/17/20 15:03 Bladder Scan [RC] ASDIRECTED 01/17/20 15:15 Sodium Chloride 0.9% [Normal Saline] 1,000 ml IV ASDIRECTED
[2020-01-17] MEDS ORDERED: Sodium Chloride 0.9% 1,000 ML IV SCH ×2 (12:45→15:15)
[2020-01-17] MEDS: Sodium Chloride 0.9% 250 ML IV SCH ×3 (18:14→23:48)
[2020-01-17] MEDS: Piperacillin/Tazobactam 2.25 GM in Sodium Chloride 0.9% 50 ML IV SCH (20:00)
[2020-01-17] MEDS: Sodium Chloride 0.9% 10 ML Syringe FLUSH PRN (20:32)
[2020-01-17] MEDS ORDERED: Acetaminophen 325 MG Tab PO PRN (21:39)
[2020-01-17] MEDS ORDERED: diphenhydrAMINE 25 MG Cap PO ONE (21:39)
[2020-01-17] MEDS: tiZANidine 4 MG Tab PO SCH (22:01)
[2020-01-17] MEDS: Tacrolimus 0.5 MG Cap PO SCH (22:01)
[2020-01-17] MEDS: Carvedilol 6.25 MG Tab PO SCH (22:02)
[2020-01-18] MEDS: Sodium Chloride 0.9% 1,000 ML IV SCH ×2 (01:05→10:00)
[2020-01-18] MEDS: Piperacillin/Tazobactam 2.25 GM in Sodium Chloride 0.9% 50 ML IV SCH ×5 (01:44→20:40)
[2020-01-18] MEDS: Sodium Chloride 0.9% 10 ML Syringe FLUSH PRN ×2 (06:38→20:40)
[2020-01-18] MEDS ORDERED: Glucose Gel 15 GM in 37.5 GM Tube PO ONE (06:49)
[2020-01-18] MEDS ORDERED: Insulin Degludec 200 UNIT/ML PEN SQ SCH (09:00)
[2020-01-18] MEDS: Carvedilol 6.25 MG Tab PO SCH ×2 (10:15→20:42)
[2020-01-18] MEDS: Gabapentin 600 MG Tab PO SCH ×2 (10:19→20:41)
[2020-01-18] MEDS: predniSONE 10 MG Tab PO SCH (10:19)
[2020-01-18] MEDS: Isosorbide Mononitrate 30 MG Tab.ER PO SCH (10:19)
[2020-01-18] MEDS: Pantoprazole 40 MG Tab.CR PO SCH ×2 (10:20→20:42)
[2020-01-18] MEDS: Fluconazole 100 MG Tab PO SCH (10:20)
[2020-01-18] MEDS: Tacrolimus 0.5 MG Cap PO SCH ×2 (10:48→20:42)
[2020-01-18] MEDS: Sodium Bicarbonate 650 MG Tab PO SCH ×2 (10:49→20:42)
[2020-01-18] MEDS ORDERED: Atropine/Diphenoxylate 0.025-2.5 MG Tab PO PRN (10:53)
[2020-01-18] MEDS: Acetaminophen/Codeine 300-30 MG Tab PO PRN ×2 (11:07→23:58)
--- NOTE | 2020-01-18 11:11 | PN ---
DATE SEEN: 01/18/2020 REASON FOR VISIT: Fever related illness. SUBJECTIVE: Hollis Barrera is a 59-year-old male admitted yesterday with fever of undetermined origin. Blood cultures as of 10 o'clock, no growth. Had a good night otherwise. Surprisingly, hemoglobin only went from 7.4 to 7.62 units, platelets 4000 to 34,000. Glucose 225 and 229. OBJECTIVE: VITAL SIGNS: 37.3, 84, 136/68, 90, and 18. GENERAL: Appears better. Little less withdrawn. HEENT: Mouth and oropharynx are clear. Better in hydration. NECK: Benign. Thyroid small. CHEST: On auscultation, clear in all lung bar. HEART: On auscultation, no ectopy or murmur. ABDOMEN: Benign but distended. ASSESSMENT: Fever related illness. PLAN: Continue antibiotic therapy. Await blood cultures. Symptomatic treatment. Close observation of hemoglobin and well being. /[id number] MARIBEL/MILES
--- NOTE | 2020-01-18 12:52 | HP ---
ADMISSION DATE: 01/17/2020 REASON FOR ADMISSION: Fever, chills, sweats, lethargy, and weakness. HISTORY OF PRESENT ILLNESS: Hollis Barrera is a 59-year-old male, [place] resident, who was seen at [facility] ER. Presented with weakness, lethargy, fever, chills, sweats, decrease in dehydration and lack of general strength necessitating intervention. Fever was documented. Origin was uncertain. Laboratory studies upon admission to be noted below. Complicated health issue with chronic renal failure, previous renal transplant. MEDICATIONS: Upon admission include, 1. Gabapentin 600 mg 1 p.o. b.i.d. 2. Imdur 30 mg 1 p.o. daily CAD. 3. Tresiba 15 units subcu once daily. 4. Magnesium oxide 500 mg 1 p.o. t.i.d. nutrition/kidneys. 5. Prograf 0.5 one capsule q.12 hours. 6. Zanaflex 2 mg one p.o. at bedtime muscle relaxant. 7. Kayexalate powder per protocol. 8. Pantoprazole 40 mg 1 p.o. b.i.d. GERD. 9. Vitamin D 2000 mg daily. 10.Os-Inderjit 500 mg 1 p.o. t.i.d. nutrition. 11.Prednisone 10 mg 1 p.o. daily kidney transplant. 12.Sodium bicarb 650 one p.o. b.i.d. 13.Calcitriol 0.5 mcg one p.o. daily kidney transplant. 14.Metamucil 2 tablespoons one daily stools. 15.Coreg 6.25 one p.o. daily blood pressure/heart. 16.Glipizide 5 mg 1 p.o. daily NIDDM. 17.Baby aspirin. ALLERGIES: Measles, mumps, and rubella vaccine; NSAIDs; and Zostavax. PAST MEDICAL HISTORY: Significant for previous AV shunt, removed; updated colonoscopies; remote appendectomy; kidney transplant in 2001; previous joint replacement; and parathyroidectomy. Treatable diseases include hypertension, coronary artery disease, kidney failure, and diabetes mellitus. SOCIAL HISTORY: Lives in [place]. Single, lives alone. Former smoker, quit in 1989. Chewing tobacco on occasion. No vaping. No alcohol. No illicit drug use. FAMILY HISTORY: Positive for early heart disease, diabetes mellitus, or inheritable cancers. REVIEW OF SYSTEMS: CONSTITUTIONAL: Feeling generally poorly. EYES: Vision impaired. EARS: Hearing impaired. OROPHARYNX: Intact dentition, daily care. CV: No chest pain, palpitations, syncope. RESPIRATORY: No chronic cough, wheeze, or congestion. GI: Chronic diarrhea, postprandial, longstanding. : Voiding comfortably. No blood in urine. SKIN: No open sores or lesions. ENDOCRINE: No excessive thirst or urination. ALLERGIES: Seasonal. ORTHOPEDIC: Generalized joint complaints. PSYCHIATRIC: Mood stable. PHYSICAL EXAMINATION: VITAL SIGNS: 70 kg, temperature 39.4, pulse 105, 86/48, 15, 94% on room air. GENERAL: Appears comfortable. Cooperative, conversant. Soft spoken. HEENT: Funduscopic benign. Conjunctivae clear. Bright tympanic membranes. Decreased hearing. Clear nasal discharge. Mouth and oropharynx clear. Fair dentition. Tongue midline. Good gag reflex. NECK: Benign. Thyroid small. CHEST: On auscultation, clear in all lung bar. HEART: On auscultation, no ectopy or murmur. ABDOMEN: Benign. No hepatosplenomegaly. Surgical scar in right lower quadrant. : Uncircumcised male. Testes descended. Hernias absent. RECTAL: Declined and deferred. EXTREMITIES: Well perfused. LABORATORY STUDIES: White count 4900, hemoglobin 7.4, hematocrit 21.4, platelets 4000, GFR 36 and stable. CRP 10.5. Urinalysis, large blood. SARS negative. ASSESSMENT: 1. Fever-related illness, origin undetermined. 2. Multiple health problems. PLAN: We will place in the hospital. Antibiotic therapy with close observation. Blood cultures, symptomatic treatment, pain control, and intervention. /[id number] MARIBEL/MILES
[2020-01-18] MEDS ORDERED: Sodium Chloride 0.9% 250 ML IV SCH (17:30)
[2020-01-18] MEDS ORDERED: diphenhydrAMINE 25 MG Cap PO ONE (17:50)
[2020-01-18] MEDS: Sodium Chloride 0.9% 250 ML IV SCH ×2 (18:17→21:09)
[2020-01-18] MEDS: tiZANidine 4 MG Tab PO SCH (20:41)
[2020-01-19] MEDS: Piperacillin/Tazobactam 2.25 GM in Sodium Chloride 0.9% 50 ML IV SCH (01:56)
[2020-01-19] MEDS: Sodium Chloride 0.9% 10 ML Syringe FLUSH PRN ×3 (02:36→10:45)
[2020-01-19] MEDS ORDERED: cefTRIAXone 2 GM in Sodium Chloride 0.9% 50 ML IV SCH (09:00)
[2020-01-19] MEDS ORDERED: Insulin Glargine,Human Rec. Analog 100 Units/ML 3 ML Pen SUBCUT SCH (09:00)
[2020-01-19] MEDS ORDERED: cefTRIAXone 2 GM Vial IVPUSH SCH (09:15)
[2020-01-19] MEDS ORDERED: Azithromycin 500 MG in Sodium Chloride 0.9% 250 ML IV SCH (09:30)
[2020-01-19] MEDS: Fluconazole 100 MG Tab PO SCH (09:30)
[2020-01-19] MEDS: Carvedilol 6.25 MG Tab PO SCH (09:30)
[2020-01-19] MEDS: predniSONE 10 MG Tab PO SCH (09:30)
[2020-01-19] MEDS: Isosorbide Mononitrate 30 MG Tab.ER PO SCH (09:30)
[2020-01-19] MEDS: Pantoprazole 40 MG Tab.CR PO SCH (09:31)
[2020-01-19] MEDS: Sodium Bicarbonate 650 MG Tab PO SCH (09:31)
[2020-01-19] MEDS: Tacrolimus 0.5 MG Cap PO SCH (09:31)
[2020-01-19] MEDS ORDERED: Insulin Glargine,Human Rec. Analog 100 Units/ML 3 ML Pen SUBCUT ONE (09:42)
[2020-01-19] MEDS: Gabapentin 600 MG Tab PO SCH (09:43)
[2020-01-19] MEDS ORDERED: Diatrizoate Meglumine/Diatrizoate Sodium 37% 30 ML Bottle PO ONE (10:35)
[2020-01-19 12:35] VITALS: BP 115/65; PULSE 87
[2020-01-19] MEDS: Acetaminophen/Codeine 300-30 MG Tab PO PRN (12:48)
--- NOTE | 2020-01-19 13:21 | CR ---
INDICATION: Fever. CHEST, 2 VIEWS: PA and lateral views of the chest, 01/19/20, were compared with 01/03/20 and now reveal multiple nodules in the right mid-lung field, etiology indeterminate, but could be on the basis of multiple abscesses in a patient with fever. Neoplasia is felt to be somewhat less likely in the short interval compared with the previous chest x-ray. There is also some patchy infiltrate in the mid-lung field and lower lung field on the right, and increased interstitial markings bilateral, but especially on the left. There is blunting of both posterior sulci compatible with pneumonia and pleuritis. No definite evidence of CHF is seen. The heart is prominent but not grossly enlarged. The aorta is somewhat tortuous with calcification in the arch. Central line is noted from the left subclavian extending into the SVC at the right atrium. Degenerative changes are noted in the spine. IMPRESSION: New pleural parenchymal changes noted, which may be on the basis of pneumonia and pleuritis, possibly abscess formations on the right should be considered with the nodularity present there. Neoplasia is felt to be less likely in the short interval compared with 01/03/20 chest x-ray. MTDD
--- NOTE | 2020-01-19 13:39 | CT ---
INDICATION: Left-sided abdominal pain. CT ABDOMEN AND PELVIS WITHOUT CONTRAST: Spiral 3.75 mm axial sections were obtained through the abdomen and pelvis with oral contrast only (creatinine 1.9, GFR 36) with sagittal and coronal reconstructions 01/19/20 and compared with previous study of 11/29/19. The heart is enlarged and may be slightly increased in size compared with the previous study. No definite pericardial effusion was seen. There is now noted bibasilar pleuroparenchymal change compatible with pneumonia and pleuritis and possibly some atelectasis with [id number] sized pleural effusions present, the larger on the right. A small low density lesion in the left lobe of the liver is unchanged. The liver was otherwise unremarkable. The gallbladder is absent compatible with history of its removal. The adrenal glands appeared normal. The spleen is somewhat enlarged measuring approximately 149 mm in maximum diameter. The pancreas appeared normal. The common bile duct was not enlarged. Calcifications are noted in the abdominal aorta, gastric, splenic, renal, iliac and femoral arteries. Telida kidneys are markedly atrophic with almost no cortex. A transplanted kidney is noted in the left pelvis, which appears grossly normal with a prominent renal pelvis and possibly ureter. Detail is limited in the area of the urinary bladder and distal ureter due to bilateral total hip arthroplasties. The appendix is absent compatible with history of its removal. No evidence of bowel obstruction was seen. There is noted fat stranding and fluid in the paracolic gutter on the left and, to a lesser extent, on the right as well as in the [id number] pelvis with some free fluid collection suggested superior and posterior to the urinary bladder. The etiology is indeterminate. Although the colon is adjacent to some of the fluid collections, no definite diverticulitis or colitis is identified. Diverticulosis coli is noted in the sigmoid without definite diverticulitis. No definite free air was identified. No definite mass lesions were identified. The stomach had a fairly normal appearance. IMPRESSION: 1. Fluid in the left paracolic gutter and, to a much lesser extent, right paracolic gutter, with fluid collections also scattered about the pelvis. Etiology is indeterminate. The possibility of peritonitis would be a consideration. Bleeding sites would be a consideration with this patient's history. The possibility of pyelonephritis with extension into the perirenal space and peritoneum in general would also be a consideration. The urinary bladder wall is also thickened raising question of cystitis there. No definite specific abscess or free air was seen. 2. ASD. 3. Transplanted kidney in the left pelvis with atrophic jena kidneys. 4. Diverticulosis coli sigmoid - no definite diverticulitis. 5. Tiny low density lesion left lobe of the liver, most likely simple cyst. 6. Bibasilar pleural parenchymal changes, which may be on the basis of pneumonia and pleuritis, although some atelectasis may also be present. 7. ASHD. 8. Bilateral total hip arthroplasties with hard beam artifact limiting detail in the lower pelvis. A message was left on Dr. Garcia's voicemail as to the availability of this report. Total exam DLP was 719.62 mGy-cm. MTDD
--- NOTE | 2020-01-20 15:07 | DISCH ---
DISCHARGE DATE: 01/19/2020 REASON FOR ADMISSION : Septicemia, positive blood cultures, declining renal function, complicated anemia, complicated low platelets. HISTORY OF PRESENT ILLNESS: Hollis Barrera is a 59-year-old male admitted through the emergency room. He presented with fever, suspicion for sepsis, declining renal function, and markedly abnormal hemoglobin and platelets. Please see ER physician and admitting history and physical. Of significance, upon admission, white count was normal, hemoglobin 6.6, and platelets 4,000. Liver enzymes are unremarkable. HOSPITAL COURSE: The patient was admitted to the hospital for treatment and was placed on antibiotic therapy, sepsis suspected. On day #1, positive blood cultures. Response was satisfactory, fever abated, and respiratory issues were comfortable. He required supplemental O2. He has had some vague nagging left-sided abdominal pain. A CT scan is scheduled for 01/19/2020. He was given 4 units of blood, hemoglobin went from 7.6 to 6.5, today 8.4. Platelets continue to be low at 14,000 and hematocrit 24.9. He appeared otherwise well. Because of the low hematological parameters and concerns and plans for upcoming bone marrow to be scheduled tomorrow, transfer to [facility] indicated. PHYSICAL EXAMINATION: VITAL SIGNS: 73 kg, 151/79, pulse of 90, 16, and 93% on 2 L. GENERAL: He appears comfortable. HEENT: Mouth and oropharynx are clear. NECK: Benign. Thyroid is small. CHEST: Clear, all lung bar. HEART: No ectopy or murmur. ABDOMEN: Tender left upper quadrant. Bowel sounds are intact. ASSESSMENT: Sepsis, positive blood culture, hematological abnormalities. PLAN: Transfer to [facility] timely and appropriate; Dr. Cueva, provider of record. /[id number] MARIBEL/MILES
== END 2020-01-19 12:55 | DRG 872 ==
LOC: FB.ED 11:06 → FB.MS 16:50
PROVIDERS: ADMIT Emergency Medicine; ATTEND Family Medicine
PROC: 30233N1 Transfusion of Nonautologous Red Blood Cells into Peripheral Vein, Percutaneous Approach (ICD-10-PCS; principal; 2020-01-17)
PROC: 30233R1 Transfusion of Nonautologous Platelets into Peripheral Vein, Percutaneous Approach (ICD-10-PCS; 2020-01-17)
DX: A41.9 Sepsis, unspecified organism (principal); Z94.0 Kidney transplant status; R50.9 Fever, unspecified; D69.3 Immune thrombocytopenic purpura; H54.7 Unspecified visual loss; N18.9 Chronic kidney disease, unspecified; D64.9 Anemia, unspecified; Z20.828 Contact with and (suspected) exposure to other viral communicable diseases; I12.9 Hypertensive chronic kidney disease with stage 1 through stage 4 chronic kidney disease, or unspecified chronic kidney disease; K57.90 Diverticulosis of intestine, part unspecified, without perforation or abscess without bleeding; Z86.010 Personal history of colon polyps; Z87.440 Personal history of urinary (tract) infections; N28.9 Disorder of kidney and ureter, unspecified; E11.22 Type 2 diabetes mellitus with diabetic chronic kidney disease; I25.10 Atherosclerotic heart disease of native coronary artery without angina pectoris; E78.00 Pure hypercholesterolemia, unspecified; M54.9 Dorsalgia, unspecified; F41.9 Anxiety disorder, unspecified; E11.9 Type 2 diabetes mellitus without complications; E20.9 Hypoparathyroidism, unspecified; Z86.14 Personal history of Methicillin resistant Staphylococcus aureus infection; F41.0 Panic disorder [episodic paroxysmal anxiety]; E89.0 Postprocedural hypothyroidism; Z96.643 Presence of artificial hip joint, bilateral; Z98.890 Other specified postprocedural states; F32.9 Major depressive disorder, single episode, unspecified; E21.3 Hyperparathyroidism, unspecified; Z79.82 Long term (current) use of aspirin; Z79.899 Other long term (current) drug therapy; Z88.7 Allergy status to serum and vaccine; Z88.8 Allergy status to other drugs, medicaments and biological substances; Z90.49 Acquired absence of other specified parts of digestive tract; Z87.891 Personal history of nicotine dependence; Z79.4 Long term (current) use of insulin; I25.2 Old myocardial infarction; Z95.5 Presence of coronary angioplasty implant and graft; G89.29 Other chronic pain; Z79.52 Long term (current) use of systemic steroids
CPT/HCPCS: 36415; 36430; 71046; 74176; 80048; 81001; 82962; 83605; 83615; 85027; 85379; 86140; 86850; 86900; 86901; 86920; 86922; 87040; 87230; 94760; 96360; 96361; 99221; 99231; 99238; 99285; 99285-25; A9270-GY; J0456; J0696; J1642; J1815; J1815-GY; J2543; J3490; J7030; J7050; J7512; P9016; P9034; Q9963; U0002

== ENCOUNTER 2020-01-30 12:17 | Emergency (ER) | payer MEDICARE, MEDICAID ==
--- NOTE | 2020-01-30 12:20 | EDM.PDOC ---
ED HPI GENERAL MEDICAL PROBLEM - General Chief Complaint: General Stated Complaint: Body aches Time Seen by Provider: 01/30/20 12:30 Source of Information: Reports: Patient History Limitations: Reports: No Limitations - History of Present Illness INITIAL COMMENTS - FREE TEXT/NARRATIVE: 59 yo gentleman who presented to the ER today requesting pain medication for generalized body aches and back pain. Patient is on outpatient IV Abx Has been using Tylenol for pain. He has appointment to be seen as an outpatient. No fever. No chest pain, SOB. Presented to the ER for further evaluation. Onset: Gradual Onset Date: 01/28/20 Duration: Getting Worse Quality: Reports: Ache Severity: Moderate generalized Pain Score (Numeric/FACES): 10 - Related Data Allergies Allergy/AdvReac Type Severity Reaction Status Date / Time NSAIDS (Non-Steroidal Allergy Other Verified 01/30/20 13:45 Anti-Inflamma zoster vaccine live Allergy Other Verified 01/30/20 13:45 [From Zostavax (PF)] mmr Allergy Other Uncoded 01/03/20 18:12 Home Meds: Home Meds Cholecalciferol (Vitamin D3) [Vitamin D3] 2,000 unit PO DAILY 06/07/15 [History] calcitrioL [Rocaltrol] 0.5 mcg PO DAILY 08/22/15 [History] Sodium Bicarbonate 650 mg PO BID 07/23/17 [History] predniSONE [Prednisone] 10 mg PO DAILY 09/17/17 [History] Tacrolimus [Prograf] 0.5 mg PO Q12H 02/24/18 [History] Fluconazole [Diflucan] 200 mg PO DAILY 08/07/18 [History] Insulin Degludec [Tresiba Flextouch U-100] 15 units SQ DAILY 08/07/18 [History] carvediloL [Carvedilol] 6.25 mg PO BID 10/16/18 [History] Aspirin [Halfprin] 81 mg PO DAILY 02/20/19 [History] Pantoprazole Sodium [Protonix] 40 mg PO BID 02/20/19 [History] Gabapentin [Neurontin] 600 mg PO BID 04/02/19 [History] Isosorbide Mononitrate [Imdur] 30 mg PO DAILY 04/02/19 [History] glipiZIDE [Glucotrol] 5 mg PO DAILY 04/02/19 [History] tiZANidine [Zanaflex] 1 tab PO BEDTIME 04/06/19 [History] Acetaminophen/Codeine [Tylenol with Codeine No.3 300MG/30MG] 1 tab PO Q4H PRN #10 tab 12/28/19 [Rx] Acetaminophen/HYDROcodone [Warren 325-5 MG] 1 tab PO .Q6H PRN #20 tab 01/30/20 [Rx] Past Medical History HEENT History: Reports: Impaired Vision Other HEENT History: Pt wears glasses Cardiovascular History: Reports: CAD, High Cholesterol, [place], Stents, Other (See Below) Other Cardiovascular History: viral menigitis 2015 (also "had [place] 09/2017 went to [place] they put in a stent" this recorded on 09/14/17) Respiratory History: Reports: SOB Gastrointestinal History: Reports: Cholelithiasis, Colon Polyp, Diverticulosis, Hemorrhoids Genitourinary History: Reports: Renal Disease, UTI, Recurrent, Other (See Below) Other Genitourinary History: kidney transplant (2001) pts fistula was removed early may 2017 from left arm Musculoskeletal History: Reports: Back Pain, Chronic Other Musculoskeletal History: has lump on neck vein and will need it removed Neurological History: Reports: Other (See Below) Other Neuro History: Cryptococcal meningitis Psychiatric History: Reports: Addiction, Anxiety, Depression, Panic Attack, Other (See Below) Other Psychiatric History: gets mildly depressed. POST ALCOHOLIC 1998 Endocrine/Metabolic History: Reports: Diabetes, Type II, Hypoparathyroidism Hematologic History: Reports: Anemia, Blood Transfusion(s), Idiopathic Thrombocytopenia Other Hematologic History: myelodysplastic syndrome Immunologic History: Reports: Immunosuppression, Solid Organ Transplant Other Immunologic History: kidney transplant 2001 Oncologic (Cancer) History: Reports: None Dermatologic History: Reports: None - Infectious Disease History Infectious Disease History: Reports: None Other Infectious Disease History: MRSA-urine - Past Surgical History HEENT Surgical History: Reports: None Cardiovascular Surgical History: Reports: Other (See Below) Other Cardiovascular Surgeries/Procedures: stent placed end of 09/14/2017 Respiratory Surgical History: Reports: None GI Surgical History: Reports: Appendectomy, Cholecystectomy, Colonoscopy Male Surgical History: Reports: Other (See Below) Other Male Surgeries/Procedures: kidney transplant in 2001 Endocrine Surgical History: Reports: Other (See Below) Other Endocrine Surgeries/Procedures: had thyroid removed Musculoskeletal Surgical History: Reports: Hip Replacement Other Musculoskeletal Surgeries/Procedures:: both hips-replaced Oncologic Surgical History: Reports: None Dermatological Surgical History: Reports: None Social & Family History - Family History Family Medical History: Noncontributory Cardiac: Reports: CAD, Other (See Below) Other Cardiac Family History: Brother had bypass GI: Reports: None OBGYN: Reports: None, Musculoskeletal: Reports: None Neurological: Reports: None Psychiatric: Reports: None Endocrine/Metabolic: Reports: Diabetes, type II Immunologic: Reports: None - Caffeine Use Caffeine Use: Reports: Coffee Other Caffeine Use: 2-3 cups per day Caffeine Use Comment: 2-3 cups/day - Living Situation & Occupation Living situation: Reports: Alone Occupation: Disabled ED ROS GENERAL - Review of Systems Review Of Systems: See Below Constitutional: Reports: No Symptoms HEENT: Reports: No Symptoms Respiratory: Reports: No Symptoms Cardiovascular: Reports: No Symptoms Endocrine: Reports: No Symptoms GI/Abdominal: Reports: No Symptoms Musculoskeletal: Reports: Other (body aches) Skin: Reports: No Symptoms Neurological: Reports: No Symptoms Psychiatric: Reports: No Symptoms Hematologic/Lymphatic: Reports: No Symptoms Immunologic: Reports: No Symptoms ED EXAM, GENERAL - Physical Exam Exam: See Below Exam Limited By: Uncooperative General Appearance: Alert, WD/WN, No Apparent Distress Eye Exam: Bilateral Eye: PERRL Ears: Normal External Exam, Normal TMs Ear Exam: Bilateral Ear: Auricle Normal Nose: Normal Inspection Throat/Mouth: Normal Inspection, Normal Lips, Normal Oropharynx Head: Atraumatic, Normocephalic Neck: Normal Inspection, Supple Respiratory/Chest: No Respiratory Distress, Lungs Clear Cardiovascular: Normal Peripheral Pulses, Regular Rate, Rhythm GI/Abdominal: Normal Bowel Sounds, Soft, Non-Tender, No Organomegaly Back Exam: Normal Inspection Extremities: Normal Inspection Neurological: Alert, Oriented, CN II-XII Intact Psychiatric: Normal Affect, Normal Mood Skin Exam: Warm, Dry, Intact, Normal Color Lymphatic: No Adenopathy Course - Vital Signs Last Recorded V/S: Last Vital Signs Temp 36.7 C 01/30/20 12:20 Pulse 82 01/30/20 12:20 Resp 17 01/30/20 12:20 BP 115/68 01/30/20 12:20 Pulse Ox 94 L 01/30/20 12:20 Departure - Departure Time of Disposition: 12:38 Disposition: Home, Self-Care 01 Condition: Good Clinical Impression: Generalized body aches - Discharge Information *PRESCRIPTION DRUG MONITORING PROGRAM REVIEWED*: No *COPY OF PRESCRIPTION DRUG MONITORING REPORT IN PATIENT JUNI: No Prescriptions: Acetaminophen/HYDROcodone [Warren 325-5 MG] 1 tab PO .Q6H PRN #20 tab PRN Reason: Pain Referrals: PCP,None [Ordering Only Provider] - Forms: ED Department Discharge Additional Instructions: Follow with PCP Warren prn Pain Return if symptoms worsen Call your Physician or Return to Emergency Department if: * Your condition worsens in any way. * You develop fever greater than 100.4. * You have vomitting that does not stop with medications. * You have pain that is not controlled with medications. Sepsis Event Note (ED) - Focused Exam Vital Signs: Vital Signs Temp Pulse Resp BP Pulse Ox 01/30/20 12:20 36.7 C 82 17 115/68 94 L
[2020-01-30 13:46] VITALS: BP 115/68; PULSE 82
== END 2020-01-30 12:55 | disposition home or self-care (01) ==
LOC: FB.ED 12:17
DX: R52 Pain, unspecified (principal); I25.10 Atherosclerotic heart disease of native coronary artery without angina pectoris; I25.2 Old myocardial infarction; E11.9 Type 2 diabetes mellitus without complications; Z79.82 Long term (current) use of aspirin; Z79.899 Other long term (current) drug therapy; Z88.6 Allergy status to analgesic agent; Z88.7 Allergy status to serum and vaccine; Z88.8 Allergy status to other drugs, medicaments and biological substances; Z79.4 Long term (current) use of insulin
CPT/HCPCS: 99283

== ENCOUNTER 2020-02-17 19:42 | Inpatient (IN) | payer MEDICARE, MEDICAID, OTHER ==
[2020-02-17] MEDS ORDERED: 50% Dextrose in Water 50 ML Syringe IVPUSH ONE (20:56)
[2020-02-17] MEDS ORDERED: Insulin Regular, Human 100 Units/ML 3 ML Vial IV ONE (20:56)
[2020-02-17] MEDS ORDERED: Calcium Gluconate 10% 1 GM/10 ML SDV IVPUSH ONE (20:56)
[2020-02-17] MEDS ORDERED: Acetaminophen/HYDROcodone 325-5 MG Tab PO PRN (20:56)
--- NOTE | 2020-02-17 20:56 | EDM.PDOC ---
ED HPI GENERAL MEDICAL PROBLEM - General Chief Complaint: General Time Seen by Provider: 02/17/20 20:51 Source of Information: Reports: Patient History Limitations: Reports: No Limitations - History of Present Illness INITIAL COMMENTS - FREE TEXT/NARRATIVE: Hollis was brought in by EMS for generalized weakness,feeling poorly. These symptoms have been on going for 1 week. He has a h/o Leukemia,DM,Chronic Pain, MDD and low platelets. He was seen on an ambulatory basis this week and given 2 units of Platelets. he denies any fever,cough or Upper Respiratory symptoms. - Related Data Allergies Allergy/AdvReac Type Severity Reaction Status Date / Time NSAIDS (Non-Steroidal Allergy Other Verified 01/30/20 13:45 Anti-Inflamma zoster vaccine live Allergy Other Verified 01/30/20 13:45 [From Zostavax (PF)] mmr Allergy Other Uncoded 01/03/20 18:12 Home Meds: Home Meds Cholecalciferol (Vitamin D3) [Vitamin D3] 2,000 unit PO DAILY 06/07/15 [History] calcitrioL [Rocaltrol] 0.5 mcg PO DAILY 08/22/15 [History] Sodium Bicarbonate 650 mg PO BID 07/23/17 [History] predniSONE [Prednisone] 10 mg PO DAILY 09/17/17 [History] Tacrolimus [Prograf] 0.5 mg PO Q12H 02/24/18 [History] Fluconazole [Diflucan] 200 mg PO DAILY 08/07/18 [History] Insulin Degludec [Tresiba Flextouch U-100] 15 units SQ DAILY 08/07/18 [History] carvediloL [Carvedilol] 6.25 mg PO BID 10/16/18 [History] Aspirin [Halfprin] 81 mg PO DAILY 02/20/19 [History] Pantoprazole Sodium [Protonix] 40 mg PO BID 02/20/19 [History] Gabapentin [Neurontin] 600 mg PO BID 04/02/19 [History] Isosorbide Mononitrate [Imdur] 30 mg PO DAILY 04/02/19 [History] glipiZIDE [Glucotrol] 5 mg PO DAILY 04/02/19 [History] tiZANidine [Zanaflex] 1 tab PO BEDTIME 04/06/19 [History] Acetaminophen/Codeine [Tylenol with Codeine No.3 300MG/30MG] 1 tab PO Q4H PRN #10 tab 12/28/19 [Rx] Acetaminophen/HYDROcodone [[place] 325-5 MG] 1 tab PO .Q6H PRN #20 tab 01/30/20 [Rx] Past Medical History HEENT History: Reports: Impaired Vision Other HEENT History: Pt wears glasses Cardiovascular History: Reports: CAD, High Cholesterol, [place], Stents, Other (See Below) Other Cardiovascular History: viral menigitis 2015 (also "had [place] 09/2017 went to [place] they put in a stent" this recorded on 09/14/17) Respiratory History: Reports: SOB Gastrointestinal History: Reports: Cholelithiasis, Colon Polyp, Diverticulosis, Hemorrhoids Genitourinary History: Reports: Renal Disease, UTI, Recurrent, Other (See Below) Other Genitourinary History: kidney transplant (2001) pts fistula was removed early may 2017 from left arm Musculoskeletal History: Reports: Back Pain, Chronic Other Musculoskeletal History: has lump on neck vein and will need it removed Neurological History: Reports: Other (See Below) Other Neuro History: Cryptococcal meningitis Psychiatric History: Reports: Addiction, Anxiety, Depression, Panic Attack, Other (See Below) Other Psychiatric History: gets mildly depressed. POST ALCOHOLIC 1998 Endocrine/Metabolic History: Reports: Diabetes, Type II, Hypoparathyroidism Hematologic History: Reports: Anemia, Blood Transfusion(s), Idiopathic Thrombocytopenia Other Hematologic History: myelodysplastic syndrome Immunologic History: Reports: Immunosuppression, Solid Organ Transplant Other Immunologic History: kidney transplant 2001 Oncologic (Cancer) History: Reports: None Dermatologic History: Reports: None - Infectious Disease History Infectious Disease History: Reports: None Other Infectious Disease History: MRSA-urine - Past Surgical History HEENT Surgical History: Reports: None Cardiovascular Surgical History: Reports: Other (See Below) Other Cardiovascular Surgeries/Procedures: stent placed end of 09/14/2017 Respiratory Surgical History: Reports: None GI Surgical History: Reports: Appendectomy, Cholecystectomy, Colonoscopy Male Surgical History: Reports: Other (See Below) Other Male Surgeries/Procedures: kidney transplant in 2001 Endocrine Surgical History: Reports: Other (See Below) Other Endocrine Surgeries/Procedures: had thyroid removed Musculoskeletal Surgical History: Reports: Hip Replacement Other Musculoskeletal Surgeries/Procedures:: both hips-replaced Oncologic Surgical History: Reports: None Dermatological Surgical History: Reports: None Social & Family History - Family History Family Medical History: Noncontributory Cardiac: Reports: CAD, Other (See Below) Other Cardiac Family History: Brother had bypass GI: Reports: None OBGYN: Reports: None, Musculoskeletal: Reports: None Neurological: Reports: None Psychiatric: Reports: None Endocrine/Metabolic: Reports: Diabetes, type II Immunologic: Reports: None - Caffeine Use Caffeine Use: Reports: Coffee Other Caffeine Use: 2-3 cups per day Caffeine Use Comment: 2-3 cups/day - Living Situation & Occupation Living situation: Reports: Alone Occupation: Disabled ED ROS GENERAL - Review of Systems Review Of Systems: Comprehensive ROS is negative, except as noted in HPI. ED EXAM, GENERAL - Physical Exam Exam: See Below Exam Limited By: No Limitations General Appearance: Alert, WD/WN, Lethargic Ears: Normal External Exam Nose: Normal Inspection Throat/Mouth: Normal Inspection Head: Atraumatic Respiratory/Chest: No Respiratory Distress Cardiovascular: Normal Peripheral Pulses GI/Abdominal: Normal Bowel Sounds Back Exam: Normal Inspection Course - Vital Signs Last Recorded V/S: Last Vital Signs Temp 97.3 F 02/17/20 20:00 Pulse 73 02/17/20 20:00 Resp 17 02/17/20 20:00 BP 119/70 02/17/20 20:00 Pulse Ox 99 02/17/20 20:00 - Orders/Labs/Meds Orders: Active Orders 24 hr Category Date Time Status EKG Documentation Completion [RC] ASDIRECTED Care 02/17/20 19:50 Active Chest 1V Frontal [CR] Stat Exams 02/17/20 19:50 Taken RED BLOOD CELLS LP [BBK] Urgent Lab 02/17/20 20:50 Ordered TYPE AND SCREEN [BBK] Stat Lab 02/17/20 20:50 Ordered UA W/MICROSCOPIC [URIN] Stat Lab 02/17/20 19:55 Ordered Sodium Chloride 0.9% [Normal Saline] 250 ml Med 02/17/20 21:00 Ordered IV ASDIRECTED Sodium Chloride 0.9% [Saline Flush] Med 02/17/20 19:49 Active 10 ml FLUSH ASDIRECTED PRN Peripheral IV Insertion Adult [OM.PC] Routine Oth 02/17/20 19:50 Ordered Transfuse Red Blood Cells [COMM] Urgent Oth 02/17/20 20:50 Ordered EKG 12 Lead [EK] Routine Ther 02/17/20 19:50 Ordered Medication Orders Sodium Chloride (Saline Flush) 10 ml FLUSH ASDIRECTED PRN PRN Reason: Keep Vein Open Labs: Laboratory Tests 02/17/20 02/17/20 02/17/20 Range/Units 20:03 20:03 20:03 WBC 20.2 H (4.5-12.0) X10-3/uL RBC 2.57 L (4.30-5.75) x10(6)uL Hgb 7.6 L (13.5-17.8) g/dL Hct 22.7 L (30.0-51.3) % MCV 88.6 (80-96) fL MCH 29.7 (27.7-33.6) pg MCHC 33.5 (32.2-35.4) g/dL RDW 14.6 (11.5-15.5) % Plt Count 17 L* (125-369) X10(3)uL MPV 8.1 (7.4-10.4) fL Add Manual Diff Yes Neutrophils % (Manual) 7 L (46-82) % Band Neutrophils % 1 (0-6) % Lymphocytes % (Manual) 87 H (13-37) % Monocytes % (Manual) 1 L (4-12) % Basophils % (Manual) 4 H (0-2) % Sodium 127 L (135-145) mmol/L Potassium 6.2 H* D (3.5-5.3) mmol/L Chloride 93 L D (100-110) mmol/L Carbon Dioxide 26 (21-32) mmol/L BUN 62 H D (7-18) mg/dL Creatinine 2.9 H* (0.70-1.30) mg/dL Est Cr Clr Drug Dosing TNP Estimated GFR (MDRD) 22 L (>60) BUN/Creatinine Ratio 21.4 H (9-20) Glucose 302 H D (80-116) mg/dL Calcium 5.9 L* (8.6-10.2) mg/dL Total Bilirubin 0.8 (0.1-1.3) mg/dL AST 42 H D (5-25) IU/L ALT 52 H D (12-36) U/L Alkaline Phosphatase 136 H (56-112) IU/L Troponin I 17.3 (4.0-60.3) pg/mL Total Protein 6.2 (6.0-8.0) g/dL Albumin 2.1 L (3.2-4.6) g/dL Globulin 4.1 g/dL Albumin/Globulin Ratio 0.5 Meds: Medications Generic Name Dose Route Start Last Admin Trade Name Freq PRN Reason Stop Dose Admin Sodium Chloride 10 ml 02/17/20 19:49 Saline Flush FLUSH ASDIRECTED PRN Keep Vein Open Departure - Departure Time of Disposition: 20:54 Disposition: Still A Patient 30 Condition: Good Clinical Impression: CKD (chronic kidney disease) Qualifiers: Chronic kidney disease stage: stage 2 (mild) Qualified Code(s): N18.2 - Chronic kidney disease, stage 2 (mild) - Discharge Information Referrals: Emerson Mcgee MD [Primary Care Provider] - Sepsis Event Note (ED) - Evaluation Sepsis Screening Result: No Definite Risk - Focused Exam Vital Signs: Vital Signs Temp Pulse Resp BP Pulse Ox 02/17/20 20:00 97.3 F 73 17 119/70 99 - Problem List & Annotations (1) Hyponatremia with extracellular fluid depletion SNOMED Code(s): 91754676 Code(s): E87.1 - HYPO-OSMOLALITY AND HYPONATREMIA Status: Acute Current Visit: No (2) Anemia, macrocytic SNOMED Code(s): 10804449 Code(s): D53.9 - NUTRITIONAL ANEMIA, UNSPECIFIED Status: Acute Current Visit: No (3) Diabetes type 2, controlled SNOMED Code(s): 58595029, 774910570 Code(s): E11.9 - TYPE 2 DIABETES MELLITUS WITHOUT COMPLICATIONS Status: Acute Current Visit: No Qualifiers: Diabetes mellitus [employer] insulin use: without snf use Diabetes mellitus complication status: with kidney complications Chronic kidney disease stage: stage 2 (mild) (4) CKD (chronic kidney disease) SNOMED Code(s): 620450698 Code(s): N18.9 - CHRONIC KIDNEY DISEASE, UNSPECIFIED Status: Chronic Current Visit: Yes Qualifiers: Chronic kidney disease stage: stage 2 (mild) Qualified Code(s): N18.2 - Chronic kidney disease, stage 2 (mild) (5) MDS (myelodysplastic syndrome) with 5q deletion SNOMED Code(s): 611328514 Code(s): D46.C - MYELODYSPLASTIC SYNDROME W ISOLATED DEL(5Q) CHROMSOML ABNLT Status: Acute Current Visit: No (6) Hyperkalemia SNOMED Code(s): 17897227 Code(s): E87.5 - HYPERKALEMIA Status: Acute Current Visit: No (7) Personal history of immunosupression therapy SNOMED Code(s): 073584038 Code(s): Z92.25 - PERSONAL HISTORY OF IMMUNOSUPRESSION THERAPY Status: Acute Current Visit: No (8) Chronic pain SNOMED Code(s): 16383144 Code(s): G89.29 - OTHER CHRONIC PAIN Status: Acute Current Visit: No (9) Generalized body aches SNOMED Code(s): 89042828 Code(s): R52 - PAIN, UNSPECIFIED Status: Acute Current Visit: No - Problem List Review Problem List Initiated/Reviewed/Updated: Yes - My Orders Last 24 Hours: My Active Orders 02/17/20 19:49 Sodium Chloride 0.9% [Saline Flush] 10 ml FLUSH ASDIRECTED PRN 02/17/20 19:50 EKG Documentation Completion [RC] ASDIRECTED Chest 1V Frontal [CR] Stat Peripheral IV Insertion Adult [OM.PC] Routine EKG 12 Lead [EK] Routine 02/17/20 19:55 UA W/MICROSCOPIC [URIN] Stat 02/17/20 20:50 RED BLOOD CELLS LP [BBK] Urgent TYPE AND SCREEN [BBK] Stat Transfuse Red Blood Cells [COMM] Urgent 02/17/20 21:00 Sodium Chloride 0.9% [Normal Saline] 250 ml IV ASDIRECTED - Assessment/Plan Last 24 Hours: My Active Orders 02/17/20 19:49 Sodium Chloride 0.9% [Saline Flush] 10 ml FLUSH ASDIRECTED PRN 02/17/20 19:50 EKG Documentation Completion [RC] ASDIRECTED Chest 1V Frontal [CR] Stat Peripheral IV Insertion Adult [OM.PC] Routine EKG 12 Lead [EK] Routine 02/17/20 19:55 UA W/MICROSCOPIC [URIN] Stat 02/17/20 20:50 RED BLOOD CELLS LP [BBK] Urgent TYPE AND SCREEN [BBK] Stat Transfuse Red Blood Cells [COMM] Urgent 02/17/20 21:00 Sodium Chloride 0.9% [Normal Saline] 250 ml IV ASDIRECTED Plan: Hollis will be admitted for Blood transfusion,treatment of his hyperkalemia and acute on chronic renal failure.
[2020-02-17] MEDS: Sodium Chloride 0.9% 10 ML Syringe FLUSH PRN (21:16)
[2020-02-18] MEDS ORDERED: PANTOPRAZOLE 40 MG PO ONE (00:30)
[2020-02-18] MEDS ORDERED: TACROLIMUS 0.5 MG PO ONE (00:30)
[2020-02-18] MEDS ORDERED: Gabapentin 600 MG Tab PO ONE (00:30)
[2020-02-18] MEDS ORDERED: TIZANIDINE 2 MG PO ONE (00:30)
[2020-02-18] MEDS: Carvedilol 6.25 MG Tab PO SCH ×3 (00:49→20:19)
[2020-02-18] MEDS: Pantoprazole 40 MG Tab.CR PO SCH ×3 (00:51→20:21)
[2020-02-18] MEDS: Gabapentin 600 MG Tab PO SCH ×4 (00:51→20:20)
[2020-02-18] MEDS: Sodium Chloride 0.9% 250 ML IV SCH ×4 (01:09→22:43)
[2020-02-18] MEDS: Sodium Chloride 0.9% 10 ML Syringe FLUSH PRN (07:30)
[2020-02-18] MEDS: Sodium Chloride 0.9% 1,000 ML IV SCH ×2 (08:02→11:13)
--- NOTE | 2020-02-18 08:11 | HP ---
ADMISSION DATE: 02/17/2020 CHIEF COMPLAINT: Weakness, anemia. HISTORY OF PRESENT ILLNESS: Hollis is a 59-year-old man with an extensive medical history including coronary artery disease with NE, kidney transplant and leukemia, requiring frequent red cell and platelet transfusions. The patient was in the day prior to admission for blood transfusion of platelets because of a platelet count of 0. He tolerated this satisfactorily, but came in to the emergency room because of weakness, progressive and worse since his platelet transfusion. He was found to be quite anemic with a hemoglobin of 7.6 g, white count 20,200 and platelets 17. In addition to that, his potassium was 6.2, his BUN 62 and creatinine 2.9. He was admitted and started on red cell transfusions and IV fluid. The patient denies any current infection, fever or chills. He denies pain, but states he has been quite weak. He does state he has been drinking a lot of water. PAST MEDICAL HISTORY: Leukemia as above. He had a kidney transplant in 2001. He is status post cholecystectomy, appendectomy, colonoscopy, thyroidectomy, bilateral total hip arthroplasties. He has type 2 diabetes, coronary artery disease with angioplasty and stents. He has had chronic back pain, history of meningitis, anxiety, depression, substance addiction and chronic long-term pain medication use. He has type 2 diabetes, on insulin. MEDICATIONS: 1. Zanaflex 2 mg at bedtime. 2. Tacrolimus 0.5 mg q.12 hours. 3. Pantoprazole 40 mg b.i.d. 4. Mag-Ox 500 mg t.i.d. 5. Isosorbide 30 mg daily. 6. Tresiba 12 units daily. 7. Gabapentin 600 mg b.i.d. 8. Vitamin D3 2000 units daily. 9. Carvedilol 6.25 mg b.i.d. 10.Calcium 500 mg t.i.d. 11.Calcitriol 0.5 mcg daily. 12.Lorcet 5/325, 1 every 6 hours p.r.n. pain. 13.Tylenol with Codeine 1 b.i.d. ALLERGIES: NSAIDs cause renal problems. Also listed is Zostavax and MMR vaccine. FAMILY AND SOCIAL HISTORY: The patient lives in [place]. He is and lists a brother, Rosa Maria, and a brother, Jens as next of kin. REVIEW OF SYSTEMS: GENERAL: No seizures, syncope, or recent significant weight changes. SKIN: Negative for rash. HEENT: No recent change in hearing or vision. No sore throat or URI. No fever or chills. No chest pain or palpitations. No abdominal pain, nausea, or diarrhea. He does report he has some chronic swelling of his ankles. PHYSICAL EXAMINATION: GENERAL: He is alert, awake, and gives a fair history. VITAL SIGNS: Blood pressure 111/68, pulse is 66 and regular, respirations 16, temperature 98, O2 saturation 94% on room air. SKIN: Anicteric. Warm and dry. No rash noted. HEENT: Shows mouth to be dry. Lungs: Have rales of the right base. Completely clear on the left. HEART: Regular without murmur or gallop. ABDOMEN: Normal bowel sounds. Soft and nontender. EXTREMITIES: Showed 1+ edema to the left foot. Trace edema to right ankle. LABORATORY DATA: White count 20,000, hemoglobin 7.6, platelets 17. BUN 62, creatinine 2.9, potassium 6.2. ASSESSMENT: 1. Severe hyperkalemia. 2. Acute on chronic renal insufficiency. 3. Anemia. 4. Thrombocytopenia. 5. Leukemia with transfusion dependence. 6. History of kidney transplant. 7. Coronary artery disease status post angioplasty and stents. 8. History of meningitis. 9. Chronic substance use. 10.Type 2 diabetes. PLAN: We will rehydrate him with IV fluid. He has been given dextrose and insulin for his hyperkalemia. We will reevaluate this. Follow labs. Expect a short inpatient stay followed by discharge to home. /[id number] RO/MODL
[2020-02-18] MEDS: Tacrolimus 0.5 MG Cap PO SCH ×2 (09:06→20:21)
[2020-02-18] MEDS ORDERED: Sodium Chloride 0.9% 1,000 ML IV SCH (15:29)
[2020-02-18] MEDS ORDERED: Acetaminophen 325 MG Tab PO ONE (18:11)
[2020-02-18] MEDS ORDERED: Ampicillin/Sulbactam Na 3 GM in Sodium Chloride 0.9% 100 ML IV ONE (18:42)
[2020-02-18] MEDS ORDERED: Vancomycin 1 GM SDV IV SCH (20:00)
[2020-02-18] MEDS ORDERED: Sodium Chloride 0.65% Nasal Spray 45 ML Bottle NAS PRN (20:17)
[2020-02-18] MEDS ORDERED: TIZANIDINE 2 MG PO SCH (21:00)
[2020-02-18] MEDS ORDERED: Mirtazapine 15 MG Tab PO SCH (21:00)
--- NOTE | 2020-02-18 21:39 | PCM.SN.2 ---
- Free Text/Narrative Note: pt developed a fever this evening with inc'd oxygen demand is able to sit on his own, states he has a cough that is chronic, no sputum production PE: lungs without definite rales or wheezes, does have coarse BS at bases, symmetric. CV RRR with mild tachy. speaks in 8-10 word sentences CxR neg yesterday, CxR 1v tonight with new b/l infiltrates labs with improving renal function, CRP 26 c/w pneumonia, WBC stable pt given Unasyn 3 gm IV as initial antbx d/t h/o strep sepsis with 4/4 BC positive 1m ago will give vanco (h/o MRSA in urine 1m ago) after plt transfusion is complete will continue with vanco (to cover strep and MRSA) and ceftriaxone (to add gram neg coverage) COVID ordered and pending ASSESS: fever spike new b/l pneumonia renal failure improving low plts with no active bleeding PLAN vanco and ceftriaxone
[2020-02-18] MEDS ORDERED: cefTRIAXone 1 GM Vial IVPUSH SCH (21:45)
[2020-02-19] MEDS: Sodium Chloride 0.9% 10 ML Syringe FLUSH PRN (00:21)
[2020-02-19 01:44] VITALS: BP 127/79
[2020-02-19 06:30] VITALS: PULSE 91
[2020-02-19] MEDS ORDERED: LORazepam 2 MG/ML SDV IVPUSH PRN (08:38)
[2020-02-19] MEDS ORDERED: Morphine 10 MG/0.5 ML Oral Syringe SL PRN ×2 (08:43→12:29)
[2020-02-19] MEDS ORDERED: Calcium Gluconate 10% 1 GM/10 ML SDV IVPUSH SCH (09:00)
--- NOTE | 2020-02-19 09:34 | PCM.SN.2 ---
- Free Text/Narrative Note: Called to bedside this morning at 850 to assess patient was having agonal breathing. During cardiac exam, heartbeat slowed and stopped, pulse assessed, no pulse so CPR was started at 852. KATH Brown attached library monitor, showed pulseless electrical activity. Epinephrine given at 0855. KATH Brown took over compression, while I called the family. Spontaneous Return of circulation occurred at 0858. He was on non-breather mask when CPR was initiated, oral airway was inserted by KATH Sweet, and she was using bag-valve mask. Was breathing on his own at 0903. Vitals at 0905 94%, pulse 97, normal sinus rhythm. At 0910, BP 112/61, 93%. I spoke with his sister, Sheree who is his power of privacy attorney, advised of his condition she wished for us to do comfort measures. She was updated that we were able to get a pulse and he was breathing on his own and maintaining a blood pressure. Advised that during compressions he did sustain rib fractures, would have some bleeding from his as well as his platelets being low already, prognosis was poor. She wished for us to keep comfortable, she had notified family so they will be coming to see him. He is [employer] and family requested if a car barn laborer could come in.
[2020-02-19] MEDS: Tacrolimus 0.5 MG Cap PO SCH (10:39)
[2020-02-19] MEDS: Carvedilol 6.25 MG Tab PO SCH (10:39)
[2020-02-19] MEDS: Gabapentin 600 MG Tab PO SCH (10:39)
[2020-02-19] MEDS: Pantoprazole 40 MG Tab.CR PO SCH (10:40)
--- NOTE | 2020-02-19 14:56 | PCM.DCSUM1 ---
Discharge Summary - Hospital Course HPI Initial Comments: Admitted for Hyperkalemia, acute on chronic renal failure, hyponatremia, elevated WBC history of leukemia and myelodysplastic syndrome with recurrent transfusions of PRBCs and platelets. Had 2 units of platelets as outpatient earlier in the week for platelet count of 0. History of strep sepsis with bacteremia 1 month ago. - Discharge Data Discharge Date: 02/19/20 Discharge Disposition: 20 Preliminary Cause of *Q: Respiratory Failure Event(s) Leading to Patient's *Q: Respiratory failure secondary to pneumonia. Cardiac arrest at 850 am with spontaneous return of circulation at 0858, did not regain consciousness. Respiratory arrest at 1250pm. Condition: - Referral to Home Health Primary Care Physician: Emerson Mcgee MD - Patient Summary/Data Hospital Course: Hollis was admitted for hyperkalemia, acute on chronic renal failure, hyponatremia, anemia, thrombocytopenia. Received IV fluids and 2 units of PRBCs and 2 units of platelets on 02/17. His platelets trended up from 7, to 10 to 53. Hgb was 7.6 in ER, 8.9 then 11.0 and 10.2 on 02/18. His sodium came up only to 130 after IV fluids. Potassium corrected with dextrose and Insulin, from 6.2 to 5.5, 5.4 and 4.9. Creatinine trending down 2.9 to 2.4 today. Calcium was 5.8 and 5.6 on 02/18, magnesium 1.5. Phosphorus 4.4. UA on 02/17 showed 100 glucose, moderate blood but no infection, repeat UA showed 50 glucose, 1.005 specific gravity, moderate blood, few epithelials, few bacteria, occasional granular casts. Calcium gluconate was given in ER x 1, second dose given 02/18. Evening of 02/17, he spiked a temp 102F, increase shortness of breath. He was evaluated by overnight hospitalist, CRP was 26.1, CXR preliminary showed bilateral infiltrates, started on Unasyn and Vancomycin. COVID was negative. ABG: pH 7.35, pCO2 41, O2 53.9. Tachypneic after midnight in 22 up to 38 and 28, blood pressure 111/68 at 652. Hollis was having agonal breathing, assess at 850 and had cardiac arrest while examining. CPR was started at 852, school bus monitor showed pulseless electrical activity, CPR resumed, given 1ml of Epinephrine, had spontaneous return of circulation at 858. See note. He did not have return of consciousness, no neural activity. His family was contacted at time of code, they did not want any aggressive measures, changed his code status to comfort measures only. IV fluids and oral medications discontinued, Ativan 0.5 mg IV q1h as needed, morphine 5 mg SL q4h then changed to q30 min as needed. He received 1 dose of Ativan, no doses of Morphine prior to expiring. Family was at bedside at time of . was also called after code earlier in the day, saw patient prior to expiring. - Discharge Plan - Discharge Summary/Plan Comment DC Time >30 min.: No - Patient Data Vitals - Most Recent: Last Vital Signs Temp 96.5 F L 02/19/20 01:35 Pulse 91 02/19/20 05:30 Resp 28 H 02/19/20 05:30 BP 127/79 02/19/20 01:35 Pulse Ox 99 02/19/20 05:30 Weight - Most Recent: 147 lb 1.6 oz I&O - Last 24 hours: Intake & Output 02/18/20 02/19/20 02/19/20 22:59 06:59 14:59 Intake Total 500 279 Output Total 100 Balance 400 279 Lab Results - Last 24 hrs: Laboratory Results - last 24 hr 02/17/20 02/18/20 02/18/20 Range/Units 20:03 18:39 18:42 WBC (4.5-12.0) X10-3/uL RBC (4.30-5.75) x10(6)uL Hgb (13.5-17.8) g/dL Hct (30.0-51.3) % MCV (80-96) fL MCH (27.7-33.6) pg MCHC (32.2-35.4) g/dL RDW (11.5-15.5) % Plt Count (125-369) X10(3)uL MPV (7.4-10.4) fL Add Manual Diff Neutrophils % (Manual) (46-82) % Band Neutrophils % (0-6) % Lymphocytes % (Manual) (13-37) % Atypical Lymphs % (0-0) % Monocytes % (Manual) (4-12) % Basophils % (Manual) (0-2) % Metamyelocytes % (0-0) % Myelocytes % (0-0) % Blast Cells % (0-0) % VBG pH (7.32-7.42) VBG pCO2 VBG pO2 VBG HCO3 mmol/L VBG O2 Saturation VBG Base Excess O2 Delivery Device Oxygen Flow Rate L Sodium (135-145) mmol/L Potassium (3.5-5.3) mmol/L Chloride (100-110) mmol/L Carbon Dioxide (21-32) mmol/L BUN (7-18) mg/dL Creatinine (0.70-1.30) mg/dL Est Cr Clr Drug Dosing mL/min Estimated GFR (MDRD) (>60) BUN/Creatinine Ratio (9-20) Glucose (80-116) mg/dL Lactic Acid 1.5 (0.4-2.0) mmol/L Calcium (8.6-10.2) mg/dL Phosphorus (2.6-4.6) mg/dL Magnesium (1.8-2.5) mg/dL Total Bilirubin (0.1-1.3) mg/dL AST (5-25) IU/L ALT (12-36) U/L Alkaline Phosphatase (56-112) IU/L C-Reactive Protein (0.5-0.9) mg/dL Total Protein (6.0-8.0) g/dL Albumin (3.2-4.6) g/dL Globulin g/dL Albumin/Globulin Ratio Urine Color Yellow (YELLOW) Urine Appearance Slightly cloudy (CLEAR) Urine pH 5.0 (5.0-6.5) Ur Specific [place] 1.005 L (1.010-1.025) Urine Protein Trace (NEGATIVE) mg/dL Urine Glucose (UA) 50 H (NORMAL) mg/dL Urine Ketones Negative (NEGATIVE) mg/dL Urine Occult Blood Moderate H (NEGATIVE) Urine Nitrite Negative (NEGATIVE) Urine Bilirubin Negative (NEGATIVE) Urine Urobilinogen Normal (NEGATIVE) mg/dL Ur Leukocyte Esterase Negative (NEGATIVE) Urine RBC 0-5 (0-5) Urine WBC 0-5 (0-5) Ur Squamous Epith Cells Few H (NS,R,O) Urine Bacteria Few H (NS) Coarse Granular Casts Occasional H (NS) SARS-CoV-2 RNA (GABRIELA) (NEGATIVE) Blood Type O POSITIVE Gel Antibody Screen Negative Crossmatch See Detail 02/18/20 02/18/20 02/18/20 Range/Units 18:42 18:42 18:42 WBC 17.0 H (4.5-12.0) X10-3/uL RBC 3.61 L (4.30-5.75) x10(6)uL Hgb 11.0 L (13.5-17.8) g/dL Hct 32.2 (30.0-51.3) % MCV 89.2 (80-96) fL MCH 30.5 (27.7-33.6) pg MCHC 34.2 (32.2-35.4) g/dL RDW 14.0 (11.5-15.5) % Plt Count 10 L* (125-369) X10(3)uL MPV 7.2 L (7.4-10.4) fL Add Manual Diff Yes Neutrophils % (Manual) 7 L (46-82) % Band Neutrophils % 3 (0-6) % Lymphocytes % (Manual) 69 H (13-37) % Atypical Lymphs % 14 H (0-0) % Monocytes % (Manual) 5 (4-12) % Basophils % (Manual) 1 (0-2) % Metamyelocytes % 1 H (0-0) % Myelocytes % (0-0) % Blast Cells % (0-0) % VBG pH (7.32-7.42) VBG pCO2 VBG pO2 VBG HCO3 mmol/L VBG O2 Saturation VBG Base Excess O2 Delivery Device Oxygen Flow Rate L Sodium 130 L (135-145) mmol/L Potassium 5.4 H (3.5-5.3) mmol/L Chloride 97 L (100-110) mmol/L Carbon Dioxide 25 (21-32) mmol/L BUN 54 H (7-18) mg/dL Creatinine 2.5 H* (0.70-1.30) mg/dL Est Cr Clr Drug Dosing 28.36 mL/min Estimated GFR (MDRD) 26 L (>60) BUN/Creatinine Ratio 21.6 H (9-20) Glucose 196 H (80-116) mg/dL Lactic Acid (0.4-2.0) mmol/L Calcium 5.6 L* (8.6-10.2) mg/dL Phosphorus (2.6-4.6) mg/dL Magnesium (1.8-2.5) mg/dL Total Bilirubin 0.7 (0.1-1.3) mg/dL AST 70 H D (5-25) IU/L ALT 70 H D (12-36) U/L Alkaline Phosphatase 180 H (56-112) IU/L C-Reactive Protein 26.1 H* (0.5-0.9) mg/dL Total Protein 6.2 (6.0-8.0) g/dL Albumin 2.1 L (3.2-4.6) g/dL Globulin 4.1 g/dL Albumin/Globulin Ratio 0.5 Urine Color (YELLOW) Urine Appearance (CLEAR) Urine pH (5.0-6.5) Ur Specific [place] (1.010-1.025) Urine Protein (NEGATIVE) mg/dL Urine Glucose (UA) (NORMAL) mg/dL Urine Ketones (NEGATIVE) mg/dL Urine Occult Blood (NEGATIVE) Urine Nitrite (NEGATIVE) Urine Bilirubin (NEGATIVE) Urine Urobilinogen (NEGATIVE) mg/dL Ur Leukocyte Esterase (NEGATIVE) Urine RBC (0-5) Urine WBC (0-5) Ur Squamous Epith Cells (NS,R,O) Urine Bacteria (NS) Coarse Granular Casts (NS) SARS-CoV-2 RNA (GABRIELA) (NEGATIVE) Blood Type Gel Antibody Screen Crossmatch 02/18/20 02/18/20 02/19/20 Range/Units 18:48 23:00 06:15 WBC 10.6 (4.5-12.0) X10-3/uL RBC 3.34 L (4.30-5.75) x10(6)uL Hgb 10.2 L (13.5-17.8) g/dL Hct 29.3 L (30.0-51.3) % MCV 87.9 (80-96) fL MCH 30.6 (27.7-33.6) pg MCHC 34.8 (32.2-35.4) g/dL RDW 14.4 (11.5-15.5) % Plt Count 53 L (125-369) X10(3)uL MPV 7.7 (7.4-10.4) fL Add Manual Diff Yes Neutrophils % (Manual) 13 L (46-82) % Band Neutrophils % 1 (0-6) % Lymphocytes % (Manual) 41 H (13-37) % Atypical Lymphs % (0-0) % Monocytes % (Manual) 4 (4-12) % Basophils % (Manual) (0-2) % Metamyelocytes % 12 H (0-0) % Myelocytes % 9 H (0-0) % Blast Cells % 20 H (0-0) % VBG pH 7.350 (7.32-7.42) VBG pCO2 41.3 VBG pO2 53.9 VBG HCO3 23 mmol/L VBG O2 Saturation 85.9 VBG Base Excess -2.8 O2 Delivery Device Non rebr mask Oxygen Flow Rate 0 L Sodium (135-145) mmol/L Potassium (3.5-5.3) mmol/L Chloride (100-110) mmol/L Carbon Dioxide (21-32) mmol/L BUN (7-18) mg/dL Creatinine (0.70-1.30) mg/dL Est Cr Clr Drug Dosing mL/min Estimated GFR (MDRD) (>60) BUN/Creatinine Ratio (9-20) Glucose (80-116) mg/dL Lactic Acid (0.4-2.0) mmol/L Calcium (8.6-10.2) mg/dL Phosphorus (2.6-4.6) mg/dL Magnesium (1.8-2.5) mg/dL Total Bilirubin (0.1-1.3) mg/dL AST (5-25) IU/L ALT (12-36) U/L Alkaline Phosphatase (56-112) IU/L C-Reactive Protein (0.5-0.9) mg/dL Total Protein (6.0-8.0) g/dL Albumin (3.2-4.6) g/dL Globulin g/dL Albumin/Globulin Ratio Urine Color (YELLOW) Urine Appearance (CLEAR) Urine pH (5.0-6.5) Ur Specific [place] (1.010-1.025) Urine Protein (NEGATIVE) mg/dL Urine Glucose (UA) (NORMAL) mg/dL Urine Ketones (NEGATIVE) mg/dL Urine Occult Blood (NEGATIVE) Urine Nitrite (NEGATIVE) Urine Bilirubin (NEGATIVE) Urine Urobilinogen (NEGATIVE) mg/dL Ur Leukocyte Esterase (NEGATIVE) Urine RBC (0-5) Urine WBC (0-5) Ur Squamous Epith Cells (NS,R,O) Urine Bacteria (NS) Coarse Granular Casts (NS) SARS-CoV-2 RNA (GABRIELA) Negative (NEGATIVE) Blood Type Gel Antibody Screen Crossmatch 02/19/20 02/19/20 Range/Units 06:15 06:15 WBC (4.5-12.0) X10-3/uL RBC (4.30-5.75) x10(6)uL Hgb (13.5-17.8) g/dL Hct (30.0-51.3) % MCV (80-96) fL MCH (27.7-33.6) pg MCHC (32.2-35.4) g/dL RDW (11.5-15.5) % Plt Count (125-369) X10(3)uL MPV (7.4-10.4) fL Add Manual Diff Neutrophils % (Manual) (46-82) % Band Neutrophils % (0-6) % Lymphocytes % (Manual) (13-37) % Atypical Lymphs % (0-0) % Monocytes % (Manual) (4-12) % Basophils % (Manual) (0-2) % Metamyelocytes % (0-0) % Myelocytes % (0-0) % Blast Cells % (0-0) % VBG pH (7.32-7.42) VBG pCO2 VBG pO2 VBG HCO3 mmol/L VBG O2 Saturation VBG Base Excess O2 Delivery Device Oxygen Flow Rate L Sodium 130 L (135-145) mmol/L Potassium 4.9 (3.5-5.3) mmol/L Chloride 97 L (100-110) mmol/L Carbon Dioxide 23 (21-32) mmol/L BUN 52 H (7-18) mg/dL Creatinine 2.4 H* (0.70-1.30) mg/dL Est Cr Clr Drug Dosing 29.54 mL/min Estimated GFR (MDRD) 28 L (>60) BUN/Creatinine Ratio 21.7 H (9-20) Glucose 107 D (80-116) mg/dL Lactic Acid (0.4-2.0) mmol/L Calcium 5.6 L* (8.6-10.2) mg/dL Phosphorus 3.2 (2.6-4.6) mg/dL Magnesium 1.5 L (1.8-2.5) mg/dL Total Bilirubin (0.1-1.3) mg/dL AST (5-25) IU/L ALT (12-36) U/L Alkaline Phosphatase (56-112) IU/L C-Reactive Protein (0.5-0.9) mg/dL Total Protein (6.0-8.0) g/dL Albumin 2.0 L (3.2-4.6) g/dL Globulin g/dL Albumin/Globulin Ratio Urine Color (YELLOW) Urine Appearance (CLEAR) Urine pH (5.0-6.5) Ur Specific [place] (1.010-1.025) Urine Protein (NEGATIVE) mg/dL Urine Glucose (UA) (NORMAL) mg/dL Urine Ketones (NEGATIVE) mg/dL Urine Occult Blood (NEGATIVE) Urine Nitrite (NEGATIVE) Urine Bilirubin (NEGATIVE) Urine Urobilinogen (NEGATIVE) mg/dL Ur Leukocyte Esterase (NEGATIVE) Urine RBC (0-5) Urine WBC (0-5) Ur Squamous Epith Cells (NS,R,O) Urine Bacteria (NS) Coarse Granular Casts (NS) SARS-CoV-2 RNA (GABRIELA) (NEGATIVE) Blood Type Gel Antibody Screen Crossmatch MARGARET Results - Last 24 hrs: Microbiology 02/18/20 18:48 Anaerobic Blood Culture - Final Blood - Venous - Lab Draw Med Orders - Current: Current Medications Lorazepam (Ativan) 0.5 mg IVPUSH Q4H PRN PRN Reason: Shortness of Breath Last Admin: 02/19/20 12:46 Dose: 0.5 mg Documented by: Morphine Sulfate (Morphine 10 Mg/0.5 Ml Oral Syringe) 5 mg SL Q30M PRN PRN Reason: Shortness of Breath Sodium Chloride (Saline Flush) 10 ml FLUSH ASDIRECTED PRN PRN Reason: Keep Vein Open Last Admin: 02/19/20 00:21 Dose: 10 ml Documented by: Sodium Chloride ([place] Nasal [place]) 0 ml CHRISTOPHER Q2H PRN PRN Reason: Nasal Dryness Discontinued Medications Acetaminophen (Tylenol) 650 mg PO NOW ONE Stop: 02/18/20 18:12 Last Admin: 02/18/20 18:31 Dose: 650 mg Documented by: Hydrocodone Bitart/Acetaminophen ([place] 325-5 Mg) 1 tab PO Q4H PRN PRN Reason: Pain (moderate 4-6) Calcium Gluconate (Calcium Gluconate) 1 gm IVPUSH ONETIME ONE Stop: 02/17/20 20:57 Last Admin: 02/17/20 21:17 Dose: 1 gm Documented by: Calcium Gluconate (Calcium Gluconate) 1 gm IVPUSH Q6H [facility] Last Admin: 02/19/20 10:47 Dose: 1 gm Documented by: Carvedilol (Coreg) 6.25 mg PO BID [facility] Last Admin: 02/19/20 10:39 Dose: Not Given Documented by: Carvedilol (Coreg) 6.25 mg PO ONETIME ONE Stop: 02/18/20 00:31 Last Admin: 02/18/20 00:52 Dose: Not Given Documented by: Ceftriaxone Sodium (Rocephin) 1 gm IVPUSH Q24H [facility] Last Admin: 02/19/20 00:12 Dose: 1 gm Documented by: Dextrose/Water (Dextrose 50% In Water) 50 ml IVPUSH ONETIME ONE Stop: 02/17/20 20:57 Last Admin: 02/17/20 21:16 Dose: 50 ml Documented by: Gabapentin (Neurontin) 600 mg PO BID [facility] Last Admin: 02/19/20 10:39 Dose: Not Given Documented by: Gabapentin (Neurontin) 600 mg PO ONETIME ONE Stop: 02/18/20 00:31 Last Admin: 02/18/20 00:50 Dose: 600 mg Documented by: Sodium Chloride (Normal Saline) 250 mls [facility] Last Admin: 02/18/20 22:43 Dose: 100 mls/hr Documented by: Sodium Chloride (Normal Saline) 1,000 mls @ 999 mls/hr IV ASDIRECTED [facility] Stop: 02/19/20 08:16 Last Admin: 02/18/20 11:13 Dose: 999 mls/hr Documented by: Sodium Chloride (Normal Saline) 1,000 mls @ 125 mls[facility] Ampicillin Sodium/Sulbactam (Sodium 3 gm/ Sodium Chloride) 100 mls @ 100 mls/hr IV ONETIME ONE Stop: 02/18/20 19:41 Last Admin: 02/18/20 19:42 Dose: 100 mls/hr Documented by: Vancomycin HCl 1.5 gm/ Premix 300 mls @ 200 mls/hr IV ONETIME ONE Stop: 02/18/20 21:29 Last Admin: 02/18/20 20:56 Dose: 200 mls/hr Documented by: Vancomycin HCl 1 gm/ Premix 200 mls @ 133.333 mls/hr IV Q24H [facility] Insulin Human Regular (Humulin R) 10 unit IV ONETIME ONE Stop: 02/17/20 20:57 Last Admin: 02/17/20 21:18 Dose: 10 units Documented by: Mirtazapine (Remeron) 15 mg PO BEDTIME [facility] Last Admin: 02/18/20 20:22 Dose: 15 mg Documented by: Morphine Sulfate (Morphine 10 Mg/0.5 Ml Oral Syringe) 5 mg SL Q4H PRN PRN Reason: Shortness of Breath Tizanidine 2mg 0 each PO BEDTIME [facility] Last Admin: 02/18/20 20:21 Dose: 1 each Documented by: Pantoprazole Sodium (Protonix) 40 mg PO BID [facility] Last Admin: 02/19/20 10:40 Dose: Not Given Documented by: Pantoprazole Sodium (Protonix) 40 mg PO ONETIME ONE Stop: 02/18/20 00:31 Last Admin: 02/18/20 00:53 Dose: Not Given Documented by: Tacrolimus (Prograf) 0.5 mg PO Q12H [facility] Last Admin: 02/19/20 10:39 Dose: Not Given Documented by: Tacrolimus (Prograf) 0.5 mg PO ONETIME ONE Stop: 02/18/20 00:31 Last Admin: 02/18/20 00:53 Dose: 0.5 mg Documented by: Tizanidine HCl (Zanaflex) 2 mg PO ONETIME ONE Stop: 02/18/20 00:31 Last Admin: 02/18/20 00:54 Dose: 2 mg Documented by: Tizanidine HCl (Zanaflex) 2 mg PO BEDTIME [facility] Vancomycin HCl (Vancomycin) 0 gm IV .PHARMACY TO DOSE [facility] Vancomycin HCl (Pharmacy To Dose - Vancomycin) 0 dose .XX DAILY [facility] Last Admin: 02/19/20 10:39 Dose: Not Given Documented by:
[2020-02-19] MEDS ORDERED: Vancomycin/Dextrose 5%-Water 1 GM in Premix Bag 1 BAG IV SCH (20:00)
[2020-02-19] MEDS ORDERED: tiZANidine 4 MG Tab PO SCH (21:00)
== END 2020-02-19 12:50 | disposition expired | DRG 682 ==
LOC: FB.ED 19:42 → FB.MS 21:06 → OBSVTOIN 02-19 08:40
PROVIDERS: ADMIT Family Medicine; ATTEND Family Medicine
PROC: 30233N1 Transfusion of Nonautologous Red Blood Cells into Peripheral Vein, Percutaneous Approach (ICD-10-PCS; principal; 2020-02-18)
PROC: 30233R1 Transfusion of Nonautologous Platelets into Peripheral Vein, Percutaneous Approach (ICD-10-PCS; 2020-02-18)
PROC: 5A12012 Performance of Cardiac Output, Single, Manual (ICD-10-PCS; 2020-02-19)
DX: N17.9 Acute kidney failure, unspecified (principal); J18.9 Pneumonia, unspecified organism; S22.49XA Multiple fractures of ribs, unspecified side, initial encounter for closed fracture; J96.00 Acute respiratory failure, unspecified whether with hypoxia or hypercapnia; Z94.0 Kidney transplant status; D46.C Myelodysplastic syndrome with isolated del(5q) chromosomal abnormality; E87.1 Hypo-osmolality and hyponatremia; C92.00 Acute myeloblastic leukemia, not having achieved remission; D69.3 Immune thrombocytopenic purpura; D61.818 Other pancytopenia; I46.9 Cardiac arrest, cause unspecified; Z51.5 Encounter for palliative care; E87.5 Hyperkalemia; N18.2 Chronic kidney disease, stage 2 (mild); I25.10 Atherosclerotic heart disease of native coronary artery without angina pectoris; E78.00 Pure hypercholesterolemia, unspecified; Z20.828 Contact with and (suspected) exposure to other viral communicable diseases; D53.9 Nutritional anemia, unspecified; H54.7 Unspecified visual loss; E11.22 Type 2 diabetes mellitus with diabetic chronic kidney disease; G89.29 Other chronic pain; M54.9 Dorsalgia, unspecified; F41.9 Anxiety disorder, unspecified; E11.9 Type 2 diabetes mellitus without complications; F41.0 Panic disorder [episodic paroxysmal anxiety]; F32.9 Major depressive disorder, single episode, unspecified; D63.1 Anemia in chronic kidney disease; E20.9 Hypoparathyroidism, unspecified; E89.0 Postprocedural hypothyroidism; Y92.239 Unspecified place in hospital as the place of occurrence of the external cause; K57.90 Diverticulosis of intestine, part unspecified, without perforation or abscess without bleeding; F10.21 Alcohol dependence, in remission; R22.1 Localized swelling, mass and lump, neck; Z96.643 Presence of artificial hip joint, bilateral; Z88.7 Allergy status to serum and vaccine; Z95.5 Presence of coronary angioplasty implant and graft; I25.2 Old myocardial infarction; Z87.440 Personal history of urinary (tract) infections; Z85.6 Personal history of leukemia; Z88.8 Allergy status to other drugs, medicaments and biological substances; Z79.82 Long term (current) use of aspirin; Z79.52 Long term (current) use of systemic steroids; R50.9 Fever, unspecified; Z90.49 Acquired absence of other specified parts of digestive tract; Z79.4 Long term (current) use of insulin; Z79.899 Other long term (current) drug therapy; Z92.25 Personal history of immunosuppression therapy; Z86.61 Personal history of infections of the central nervous system; Z86.010 Personal history of colon polyps; Z86.14 Personal history of Methicillin resistant Staphylococcus aureus infection; Z98.890 Other specified postprocedural states; Z82.49 Family history of ischemic heart disease and other diseases of the circulatory system; Z83.3 Family history of diabetes mellitus; Z86.19 Personal history of other infectious and parasitic diseases
CPT/HCPCS: 36415; 36430; 71045; 80053; 80069; 81001; 82803; 83605; 83735; 83880; 84484; 85025; 86140; 86850; 86900; 86901; 86920; 86922; 87040; 93005; 94760; 96361; 96374; 96375; 99285; 99285-25; A9270-GY; G0378; J0295; J0610; J0696; J1815-GY; J2060; J3370; J7030; J7050; P9037; P9040; U0002